=== PATIENT | female | born 1945 | race African-American/Black ===

== ENCOUNTER 2016-07-29 09:25 | Emergency (ER) | payer MEDICARE, OTHER ==
[~2016-07-29] VITALS: Ht 167.6 cm; Wt 99.8 kg
[~2016-07-29 09:25] MED LIST: AMLO5TAB4 PO; BP MEDICATIONS PO; CELE200C PO; CIPR500T6 PO; Cholesterol Med PO; DIABETIC MEDICATION PO; DIAZ5TAB PO; HYDR-2762 PO; HYDR-965 PO; INSU100C4 SQ; INSU100V8 SQ; LEVO150T PO; LEVO750T31 PO; Levothyroxine PO; METO5TAB55 PO; METR500T PO; ONDA4SOL2 PO; ONDA4TAB10 SL; PANT40TA3 PO; POTA20TA84 PO; SLEEPING MED PO; SPIR50TA PO; [UNRECOGNIZED DRUG - OTHER] PO
[2016-07-29 09:50] VITALS: BP 139/82
[2016-07-29 10:02] LABS: BILIRUBIN,URINE NEGATIVE (NEG); GLUCOSE,URINE NEGATIVE (NEG); NITRITE,URINE NEGATIVE (NEG); PROTEIN,URINE NEGATIVE (NEG-TRACE); UROBILINOGEN,URINE 0.2 mg/dL (0.2 mg/dL)
[2016-07-29 10:14] LABS: BACTERIA,URINE MODERATE /HPF (0-FEW); RBC,URINE 0 /HPF (0-2); SQUAMOUS EPITHELIAL CELL,UR MANY /LPF
[2016-07-29 10:15] LABS: YEAST,URINE PRESENT /HPF
[2016-07-29] MEDS ORDERED: CIPR500T94 PO (10:28)
--- NOTE | 2016-07-29 10:29 | PHYS DOC ---
Past Medical History Past Medical History: Diabetes-Type II, GERD, High Cholesterol, Hypertension, Hypothyroid, Other Additional Past Medical Histor: Hernia Past Surgical History: Cholecystectomy, Hysterectomy, Knee Replacement, Other Additional Past Surgical Histo: EGD,Cataract removed R)eye. Alcohol Use: None Drug Use: None Adult General Chief Complaint Chief Complaint: URINARY [facility] HPI Patient is a 71 year old E male presents to the emergency department with a three-day history of dysuria. Patient is currently in the care of a svp group director and primary care physician for acute renal failure. She has no other complaints at this time. She reports no fever, no abdominal pain. She reports no edema. Review of Systems Review of Systems Constitutional: Denies fever or chills [] Eyes: Denies change in visual acuity, redness, or eye pain [] HENT: Denies nasal congestion or sore throat [] Respiratory: Denies cough or shortness of breath [] Cardiovascular: No additional information not addressed in HPI [] GI: Denies abdominal pain, nausea, vomiting, bloody stools or diarrhea [] : Dysuria, frequency, urgency Musculoskeletal: Denies back pain or joint pain [] Integument: Denies rash or skin lesions [] Neurologic: Denies headache, focal weakness or sensory changes [] Endocrine: Denies polyuria or polydipsia [] Allergies Allergies Allergies Coded Allergies Type Severity Reaction Last Updated Verified Sulfa (Sulfonamide Antibiotics) Allergy Intermediate 07/28/13 Yes prochlorperazine Allergy Intermediate 07/28/13 Yes Physical Exam Physical Exam Constitutional: Well developed, well nourished, no acute distress, non-toxic appearance. [] HENT: Normocephalic, atraumatic, bilateral external ears normal, oropharynx moist, no oral exudates, nose normal. [] Eyes: PERRLA, EOMI, conjunctiva normal, no discharge. [] Neck: Normal range of motion, no tenderness, supple, no stridor. [] Cardiovascular:Heart rate regular rhythm, no murmur [] Lungs & Thorax: Bilateral breath sounds clear to auscultation [] Abdomen: Bowel sounds normal, soft, no tenderness, no masses, no pulsatile masses. [] Skin: Warm, dry, no erythema, no rash. [] Back: No tenderness, no CVA tenderness. [] Current Patient Data Vital Signs Vital Signs Date Time Temp Pulse Resp B/P (MAP) Pulse Ox O2 Delivery O2 Flow Rate FiO2 07/29/16 09:50 98.2 96 18 139/82 (101) 98 Room Air 98.2 Lab Values Laboratory Tests Test 07/29/16 09:40 Urine Collection Type Unknown Urine Color Yellow Urine Clarity Clear Urine pH 6.0 Urine Specific [place] 1.010 Urine Protein Negative mg/dL (NEG-TRACE) Urine Glucose (UA) Negative mg/dL (NEG) Urine Ketones (Stick) Negative mg/dL (NEG) Urine Blood Negative (NEG) Urine Nitrite Negative (NEG) Urine Bilirubin Negative (NEG) Urine Urobilinogen Dipstick 0.2 mg/dL (0.2 mg/dL) Urine Leukocyte Esterase Negative (NEG) Urine RBC 0 /HPF (0-2) Urine WBC 5-10 /HPF (0-4) Urine Squamous Epithelial Cells Many /LPF Urine Bacteria Moderate /HPF (0-FEW) Urine Hyaline Casts Few /HPF Urine Mucus Slight /LPF Urine Yeast Present /HPF EKG EKG [] Radiology/Procedures Radiology/Procedures [] Course & Med Decision Making Course & Med Decision Making Pertinent Labs and Imaging studies reviewed. (See chart for details) [] Dragon Disclaimer Dragon Disclaimer This electronic medical record was generated, in whole or in part, using a voice recognition dictation system. Departure Departure Impression: Primary Impression: UTI (urinary tract infection) Disposition: 01 HOME, SELF-CARE Condition: STABLE Referrals: TYSON QUEVEDO MD (PCP) Patient Instructions: Urinary Tract Infection Additional Instructions: Increase water intake. Follow-up with primary care provider or svp group director in 3 days. Scripts Ciprofloxacin Hcl (CIPRO) 500 Mg Tablet 500 MG PO BID for 7 Days, TAB 0 Refills Prov: CECE KEANE APRN 07/29/16 CECE KEANE CLINICAL CARE LEADER Jul 29, 2016 10:29
[2016-07-31] MEDS ORDERED: PANT40TA5 PO (18:00)
[2016-07-31] MEDS ORDERED: ZOLP10TA4 PO (18:00)
[2016-07-31] MEDS ORDERED: HYDR-2666 PO (18:00)
[2016-07-31] MEDS ORDERED: AMLO10TA2 PO (18:00)
[2016-07-31] MEDS ORDERED: HYDR12.53 PO (18:00)
[2016-07-31] MEDS ORDERED: GLIM4TAB2 PO (18:00)
[2016-07-31] MEDS ORDERED: CLON0.3T PO (18:00)
[2016-07-31] MEDS ORDERED: AMIT50TA PO (18:00)
[2016-07-31] MEDS ORDERED: DIAZ10TA5 PO (18:00)
[2016-07-31] MEDS ORDERED: CELE-20 PO (18:00)
[2016-07-31] MEDS ORDERED: SPIR50TA2 PO (18:00)
[2016-07-31] MEDS ORDERED: POTASSIUM PO (18:00)
[2016-07-31] MEDS ORDERED: INSU100I13 SQ (18:00)
[2016-07-31] MEDS ORDERED: LOSA100T6 PO (18:00)
== END 2016-07-29 10:36 | disposition home or self-care (01) ==
LOC: ER 09:25
DX: N39.0 Urinary tract infection, site not specified (principal); E11.9 Type 2 diabetes mellitus without complications; K21.9 Gastro-esophageal reflux disease without esophagitis; E78.00 Pure hypercholesterolemia, unspecified; I10 Essential (primary) hypertension; E03.9 Hypothyroidism, unspecified; Z90.49 Acquired absence of other specified parts of digestive tract; Z90.710 Acquired absence of both cervix and uterus; Z96.659 Presence of unspecified artificial knee joint; Z98.41 Cataract extraction status, right eye; Z88.2 Allergy status to sulfonamides; Z88.8 Allergy status to other drugs, medicaments and biological substances
CPT/HCPCS: 81001; 87086; 99284

== ENCOUNTER 2017-01-07 20:46 | Inpatient (IN) | payer MEDICARE ==
[~2017-01-07] VITALS: Ht 167.6 cm; Wt 97.1 kg
[~2017-01-07 20:46] MED LIST changes: +AMIT50TA PO; +AMLO10TA2 PO; +CELE-20 PO; +CIPR500T94 PO; +CLON0.3T PO; +DIAZ10TA5 PO; +ERYT250T14 PO; +GLIM4TAB2 PO; +HYDR-2758 PO; +HYDR12.53 PO; +HYDR15SO4 PO; +INSU100I13 SQ; +LOSA100T6 PO; +METO10TA81 PO; +PANT40TA5 PO; +POTASSIUM PO; +SPIR50TA2 PO; +SUCR1TAB35 PO; +ZOLP10TA4 PO
[2017-01-07 21:49] LABS: BASO % 0 % (0-3); EOS % 0 % (0-3); HEMATOCRIT 36.8 % (36.0-47.0); HEMOGLOBIN 12.2 g/dL (12.0-15.5); LYMPH # 1.8 x10^3/uL (1.0-4.8); LYMPH % 20 % (24-48); MEAN CORPUSCULAR HEMOGLOBIN 28 pg (25-35); MEAN CORPUSCULAR HGB CONC 33 g/dL (31-37); MEAN CORPUSCULAR VOLUME 86 fL (79-100); MONO % 6 % (0-9); NEUT % 74 % (31-73); PLATELET COUNT 226 x10^3/uL (140-400); RED CELL DISTRIBUTION WIDTH 19.6 % (11.5-14.5); WHITE BLOOD COUNT 9.4 x10^3/uL (4.0-11.0)
[2017-01-07 21:51] LABS: BILIRUBIN,URINE NEGATIVE (NEG); GLUCOSE,URINE >=1000 mg/dL (NEG); NITRITE,URINE NEGATIVE (NEG); PROTEIN,URINE 30 mg/dL (NEG-TRACE); UROBILINOGEN,URINE 0.2 mg/dL (0.2 mg/dL)
[2017-01-07 21:57] LABS: CALCIUM 10.6 mg/dL (8.5-10.1); CREATININE 1.3 mg/dL (0.6-1.0); GFR 49.1; POTASSIUM 4.4 mmol/L (3.5-5.1)
[2017-01-07] MEDS ORDERED: IV NORMAL SALINE 1000ML BAG 1,000 ML IV ONE (22:00)
[2017-01-07 22:03] LABS: ALBUMIN 3.9 g/dL (3.4-5.0); ALBUMIN/GLOBULIN RATIO 0.9 (1.0-1.7); TOTAL BILIRUBIN 0.5 mg/dL (0.2-1.0); TOTAL PROTEIN 8.3 g/dL (6.4-8.2)
[2017-01-07 22:10] LABS: BACTERIA,URINE MANY /HPF (0-FEW); RBC,URINE OCC /HPF (0-2); SQUAMOUS EPITHELIAL CELL,UR MANY /LPF; WBC,URINE OCC /HPF (0-4)
[2017-01-07] MEDS ORDERED: ONDANSETRON PF 4 MG/2 ML VIAL. IV ONE (22:15)
[2017-01-07] MEDS ORDERED: HYDROmorphone 2 MG/ML VIAL IV ONE ×2 (22:15→23:15)
--- NOTE | 2017-01-07 22:38 | RAD ---
CT ABDOMEN PELVIS WO CONTRAST dated 01/07/2017 9:40 PM Indication: Abdominal pain for 2 weeks. Recent hospitalization.abd pain, n/v x 2 weeks, recent hospitalization, diagnosed w gastroparesis, non contrast per order, prior sent. Comparison: 12/22/2016 Technique: Contiguous axial imaging the abdomen and pelvis performed without the administration of IV or oral contrast. One or more of the following individualized dose reduction techniques were utilized for this examination: 1. Automated exposure control 2. Adjustment of the mA and/or kV according to patient size 3. Use of iterative reconstruction technique Findings: Limited images of lung bases are clear. Heart size mildly enlarged. No pleural or pericardial effusion. Solid abdominal viscera not well evaluated in the absence of contrast material. No apparent attenuation abnormality of the liver or spleen. Pancreas is somewhat atrophic. Adrenal glands unremarkable. Gallbladder is not identified and likely surgically absent. Low-density lesions at the mid and lower pole right kidney are unchanged from prior study and likely represent cysts. No hydronephrosis. Unopacified GI tract is normal in caliber and contour. No focal bowel wall thickening. There are a few scattered diverticula within the colon. No paracolonic inflammatory changes. The appendix is normal in caliber. No ascites or lymphadenopathy. Images of pelvis show nondistended urinary bladder. No free pelvic fluid or pelvic lymphadenopathy. Bone windows show no acute findings. Multilevel spondylosis. IMPRESSION: 1. No acute abnormality of abdomen or pelvis. No renal stone or hydronephrosis. 2. Normal appendix. 3. Diverticulosis with no evidence of acute diverticulitis. Electronically signed by: Krishna Thomas MD (01/07/2017 10:34 PM) [id number]
[2017-01-07] MEDS ORDERED: HEPARIN PF 500 UNIT/5 ML DISP.SYRIN. IV ONE (22:55)
--- NOTE | 2017-01-07 22:58 | PHYS DOC ---
Past Medical History Past Medical History: Diabetes-Type II, GERD, High Cholesterol, Hypertension, Hypothyroid, Other Additional Past Medical Histor: Hernia Past Surgical History: Cholecystectomy, Hysterectomy, Knee Replacement, Other Additional Past Surgical Histo: EGD,Cataract removed BILAT EYES Alcohol Use: None Drug Use: None Adult General Chief Complaint Chief Complaint: ABDOMINAL PAIN HPI HPI Patient is a 71 year old female who presents to the ER today secondary to abdominal pain. Patient reports had a recent admission approximately 2-3 weeks ago for similar symptoms and was diagnosed with gastroparesis. Patient reports that she had a pretty sensitive workup on the hospital and did not reveal any other source of her abdominal discomfort other than with the doctors described to her as diabetic gastroparesis. Patient presents here today complaining of nausea, vomiting, diarrhea, diffuse abdominal discomfort. Patient reports she has been able keep any orals liquids or solids down for approximately 24 hours now. Patient denies any fevers shakes chills. Patient has a dysuria frequency urgency, patient denies any melena or bright red blood per rectum. Patient reports that she's been vomiting bilious material. Patient reports she has an appointment tomorrow with Dr. Merritt however she does not feel like she'll be able to leave the hospital today secondary to the discomfort that she is experiencing. Review of systems: Constitutional: Denies fever or chills Eyes: Denies change in visual acuity, redness, or eye pain HENT: Denies nasal congestion or sore throat All other systems were reviewed and found to be within normal limits, except as documented in this note. Physical exam: Constitutional: Well developed, well nourished, no acute distress, non-toxic appearance. HENT: Normocephalic, atraumatic, bilateral external ears normal Eyes: PERRLA, EOMI, conjunctiva normal, no discharge. Neck: Normal range of motion, no tenderness, supple, no stridor. Cardiovascular:Heart rate regular rhythm Lungs & Thorax: Bilateral breath sounds clear to auscultation Abdomen: Bowel sounds normal, soft, mild diffuse tenderness to palpation greatest in the right lower quadrant. Normal active bowel sounds., no masses, no pulsatile masses. Skin: Warm, dry, no erythema, no rash. Back: No tenderness, no CVA tenderness. Extremities: No tenderness, no cyanosis, no clubbing, ROM intact, no edema. Neurologic: Alert and oriented X 3, normal motor function, normal sensory function, no focal deficits noted. Psychologic: Affect normal, judgement normal, mood normal. Assessment and plan: This is a 71-year-old female who presents to the ER today complaining of abdominal painwith her prior gastroparesis pain. Patient's ER workup thus far has been unremarkable. Patient's CBC, CMP, lipase and urinalysis have been all unremarkable. Patient has CT scan of her abdomen and pelvis with IV contrast given her extensive workup during her prior admission approximately 2-3 weeks ago. Patient's exam was slightly concerning for possible appendicitis. Patient' s CT scan however was unremarkable for any acute inflammatory changes or any acute pathology that would help explain her abdominal pain. While in the ER the patient be given hydration, Dilaudid, Zofran and on reevaluation the patient reports she still feels a significant amount discomfort in her abdomen is still feels extremity nauseous and does not feel well enough to be able to be discharged. Patient was given a second dose of Dilaudid and Reglan and she still feels too much discomfort and is resting admission to the hospital secondary to her discomfort in her abdomen. Patient reports that she has an appointment tomorrow with Dr. Merritt but she does not feel that she would be able to be discharged home and seen in the office tomorrow. Patient is requesting admission and reevaluation by Dr. Merritt in the hospital. Current Medications Current Medications Current Medications Medications (Trade) Dose Ordered Sig/[facility] Start Time Stop Time Status Last Admin Dose Admin Hydromorphone HCl (Dilaudid) 0.5 mg 1X ONCE 01/07/17 22:15 01/07/17 22:16 DC 01/07/17 22:06 0.5 MG Ondansetron HCl (Zofran) 4 mg 1X ONCE 01/07/17 22:15 01/07/17 22:16 DC 01/07/17 22:06 4 MG Sodium Chloride 1,000 ml @ 1,000 mls/hr 1X ONCE 01/07/17 22:00 01/07/17 22:59 01/07/17 22:23 1,000 MLS/HR Allergies Allergies Allergies Coded Allergies Type Severity Reaction Last Updated Verified Sulfa (Sulfonamide Antibiotics) Allergy Intermediate 12/22/16 Yes prochlorperazine Allergy Intermediate 10/29/17 Yes Current Patient Data Vital Signs Vital Signs Date Time Temp Pulse Resp B/P (MAP) Pulse Ox O2 Delivery O2 Flow Rate FiO2 01/07/17 22:06 16 98 Room Air 01/07/17 21:32 102 164/93 (116) 01/07/17 21:00 98.8 98.8 Lab Values Laboratory Tests Test 01/07/17 21:05 01/07/17 21:13 01/07/17 21:41 White Blood Count 9.4 x10^3/uL (4.0-11.0) Red Blood Count 4.30 x10^6/uL (3.50-5.40) Hemoglobin 12.2 g/dL (12.0-15.5) Hematocrit 36.8 % (36.0-47.0) Mean Corpuscular Volume 86 fL (79-100) Mean Corpuscular Hemoglobin 28 pg (25-35) Mean Corpuscular Hemoglobin Concent 33 g/dL (31-37) Red Cell Distribution Width 19.6 % (11.5-14.5) H Platelet Count 226 x10^3/uL (140-400) Neutrophils (%) (Auto) 74 % (31-73) H Lymphocytes (%) (Auto) 20 % (24-48) L Monocytes (%) (Auto) 6 % (0-9) Eosinophils (%) (Auto) 0 % (0-3) Basophils (%) (Auto) 0 % (0-3) Neutrophils # (Auto) 6.9 x10^3uL (1.8-7.7) Lymphocytes # (Auto) 1.8 x10^3/uL (1.0-4.8) Monocytes # (Auto) 0.6 x10^3/uL (0.0-1.1) Eosinophils # (Auto) 0.0 x10^3/uL (0.0-0.7) Basophils # (Auto) 0.0 x10^3/uL (0.0-0.2) Sodium Level 135 mmol/L (136-145) L Potassium Level 4.4 mmol/L (3.5-5.1) Chloride Level 99 mmol/L (98-107) Carbon Dioxide Level 21 mmol/L (21-32) Anion Gap 15 (6-14) H Blood Urea Nitrogen 10 mg/dL (7-20) Creatinine 1.3 mg/dL (0.6-1.0) H Estimated GFR (Cockcroft-Gault) 49.1 BUN/Creatinine Ratio 8 (6-20) Glucose Level 284 mg/dL (70-99) H Calcium Level 10.6 mg/dL (8.5-10.1) H Total Bilirubin 0.5 mg/dL (0.2-1.0) Aspartate Amino Transferase (AST) 33 U/L (15-37) Alanine Aminotransferase (ALT) 19 U/L (14-59) Alkaline Phosphatase 54 U/L (46-116) Total Protein 8.3 g/dL (6.4-8.2) H Albumin 3.9 g/dL (3.4-5.0) Albumin/Globulin Ratio 0.9 (1.0-1.7) L Lipase 377 U/L (73-393) Glucose (Fingerstick) 261 mg/dL (70-99) H Urine Collection Type Unknown Urine Color Yellow Urine Clarity Clear Urine pH 6.0 Urine Specific [place] 1.025 Urine Protein 30 mg/dL (NEG-TRACE) Urine Glucose (UA) >=1000 mg/dL (NEG) Urine Ketones (Stick) 15 mg/dL (NEG) Urine Blood Negative (NEG) Urine Nitrite Negative (NEG) Urine Bilirubin Negative (NEG) Urine Urobilinogen Dipstick 0.2 mg/dL (0.2 mg/dL) Urine Leukocyte Esterase Negative (NEG) Urine RBC Occ /HPF (0-2) Urine WBC Occ /HPF (0-4) Urine Squamous Epithelial Cells Many /LPF Urine Bacteria Many /HPF (0-FEW) Urine Mucus Mod /LPF Laboratory Tests 01/07/17 21:05 Laboratory Tests 01/07/17 21:05 EKG EKG [] Radiology/Procedures Radiology/Procedures [] Course & Med Decision Making Course & Med Decision Making Pertinent Labs and Imaging studies reviewed. (See chart for details) [] Dragon Disclaimer Dragon Disclaimer This electronic medical record was generated, in whole or in part, using a voice recognition dictation system. Departure Departure Impression: Primary Impression: Abdominal pain Additional Impressions: Diabetic gastroparesis Nausea & vomiting Diarrhea GERD (gastroesophageal reflux disease) Disposition: 09 ADMITTED INPATIENT Admitting Physician: Other (reusch) Condition: STABLE Referrals: TYSON QUEVEDO MD (PCP) Problem Qualifiers LAURITA,PIEDAD S MD Jan 07, 2017 22:58
[2017-01-07] MEDS ORDERED: ONDANSETRON PF 4 MG/2 ML VIAL. IV PRN (23:00)
[2017-01-07] MEDS: METOCLOPRAMIDE HCL 10 MG/2 ML VIAL. IV SCH (23:45)
[2017-01-07] MEDS: IV NORMAL SALINE 1000ML BAG 1,000 ML IV SCH (23:50)
[2017-01-08] VITALS (7 sets, daily range): BP systolic 110–148; BP diastolic 69–88
[2017-01-08] MEDS: IV NORMAL SALINE 1000ML BAG 1,000 ML IV SCH ×2 (00:28→07:51)
--- NOTE | 2017-01-08 06:46 | EKG ---
[facility] [address] [place] [address] Test Date: 2017-01-07 Test Time: 21:51:25 Pat Name: VERONICA CRYSTAL Department: Room: [facility] Gender: F Signal Integrity Engineer: : [id number] Requested By: PIEDAD SHAY Order Number: [id number] Reading MD: David Herrera MD Measurements Intervals [place] Rate: 88 P: -15 [place]: 140 QRS: -11 QRSD: 80 T: -16 QT: 376 QTc: 459 Interpretive Statements SINUS RHYTHM LEFTWARD AXIS T ABNORMALITY IN ANTERIOR LEADS INFEROLATERAL LEADS ABNORMAL EKG Electronically Signed On 01-08-2017 8:33:49 [employer] PROFESSION[employer] by David Herrera MD
[2017-01-08] MEDS ORDERED: HYDROmorphone 2 MG/ML VIAL IVP ONE (07:15)
[2017-01-08] MEDS: METOCLOPRAMIDE HCL 10 MG/2 ML VIAL. IV SCH (07:47)
--- NOTE | 2017-01-08 10:09 | PDOC ---
Subjective: Subjective: Please see GI consult from 12/23/16. H/o gastroparesis, recently seen w/ n/v, abd pain, and tremors on Reglan. Reglan stopped, GES repeated (abnormal), and started on erythromycin (PO QID). Improved, discharged in 12/27. Readmitted w/ n/v, inability to tolerate PO, and lower abd discomfort since 12/28. Has no recollection of taking erythromycin, doesn't think she was sent home w/ this. Vomiting about 3 times daily. Has GERD, is taking PPI + Carafate (both QD). Say stooling normally. Last EGD w/ Dr. Novoa ~2 years ago, not sure about last colonoscopy. S/p cholecystectomy. Has DM, says blood sugar running in 220s at home. Is receiving IV Reglan here. Objective: Vital Signs: Vital Signs Date Time Temp Pulse Resp B/P (MAP) Pulse Ox O2 Delivery O2 Flow Rate FiO2 01/08/17 08:45 Room Air 01/08/17 07:00 98.2 89 20 130/76 (94) 96 98.2 Labs: Laboratory Tests Test 01/07/17 21:05 01/07/17 21:13 01/07/17 21:41 01/08/17 08:41 White Blood Count 9.4 x10^3/uL Red Blood Count 4.30 x10^6/uL Hemoglobin 12.2 g/dL Hematocrit 36.8 % Mean Corpuscular Volume 86 fL Mean Corpuscular Hemoglobin 28 pg Mean Corpuscular Hemoglobin Concent 33 g/dL Red Cell Distribution Width 19.6 % Platelet Count 226 x10^3/uL Neutrophils (%) (Auto) 74 % Lymphocytes (%) (Auto) 20 % Monocytes (%) (Auto) 6 % Eosinophils (%) (Auto) 0 % Basophils (%) (Auto) 0 % Neutrophils # (Auto) 6.9 x10^3uL Lymphocytes # (Auto) 1.8 x10^3/uL Monocytes # (Auto) 0.6 x10^3/uL Eosinophils # (Auto) 0.0 x10^3/uL Basophils # (Auto) 0.0 x10^3/uL Sodium Level 135 mmol/L Potassium Level 4.4 mmol/L Chloride Level 99 mmol/L Carbon Dioxide Level 21 mmol/L Anion Gap 15 Blood Urea Nitrogen 10 mg/dL Creatinine 1.3 mg/dL Estimated GFR (Cockcroft-Gault) 49.1 BUN/Creatinine Ratio 8 Glucose Level 284 mg/dL Calcium Level 10.6 mg/dL Total Bilirubin 0.5 mg/dL Aspartate Amino Transf (AST/SGOT) 33 U/L Alanine Aminotransferase (ALT/SGPT) 19 U/L Alkaline Phosphatase 54 U/L Total Protein 8.3 g/dL Albumin 3.9 g/dL Albumin/Globulin Ratio 0.9 Lipase 377 U/L Glucose (Fingerstick) 261 mg/dL 203 mg/dL Urine Collection Type Unknown Urine Color Yellow Urine Clarity Clear Urine pH 6.0 Urine Specific [place] 1.025 Urine Protein 30 mg/dL Urine Glucose (UA) >=1000 mg/dL Urine Ketones (Stick) 15 mg/dL Urine Blood Negative Urine Nitrite Negative Urine Bilirubin Negative Urine Urobilinogen Dipstick 0.2 mg/dL Urine Leukocyte Esterase Negative Urine RBC Occ /HPF Urine WBC Occ /HPF Urine Squamous Epithelial Cells Many /LPF Urine Bacteria Many /HPF Urine Mucus Mod /LPF Imaging: CT A/P IMPRESSION: 1. No acute abnormality of abdomen or pelvis. No renal stone or hydronephrosis. 2. Normal appendix. 3. Diverticulosis with no evidence of acute diverticulitis. PE: GEN: NAD HEENT: Atraumatic, PERRL LUNGS: CTAB HEART: RRR ABD: NABS, S/ND, not particularly tender - perhaps mild discomfort BLQ EXTREMITY: No edema SKIN: No rashes, no jaundice NEURO/PSYCH: A & O 3 A/P: Gastroparesis N/v, abd pain GERD -- Last admission Reglan stopped for tremors, started on erythromycin which was apparently not continued on discharge. Restart IV erythromycin. Has never had imaging of head (here) - check head CT. HARLEY GOEL Jan 08, 2017 10:09
[2017-01-08] MEDS: ERYTHROMYCIN LACT 125 MG in IV NORMAL SALINE 100ML 100 ML IV SCH ×2 (11:18→17:18)
[2017-01-08] MEDS ORDERED: ACETAMINOPHEN 325 MG TABLET. PO PRN (11:30)
[2017-01-08] MEDS ORDERED: hydrALAZINE 20 MG/ML VIAL. IVP PRN (11:30)
[2017-01-08] MEDS ORDERED: DOCUSATE SODIUM 100 MG CAPSULE. PO PRN (11:30)
[2017-01-08] MEDS ORDERED: ONDANSETRON PF 4 MG/2 ML VIAL. IV PRN (11:30)
[2017-01-08] MEDS ORDERED: DEXTROSE 50% 25 GM / 50ML DISP.SYRIN. IV PRN (11:30)
[2017-01-08] MEDS ORDERED: ZOLPIDEM 5 MG TABLET. PO PRN (11:45)
[2017-01-08] MEDS ORDERED: diazePAM 5 MG TABLET PO PRN (11:45)
[2017-01-08] MEDS: AMITRIPTYLINE HCL 50 MG TABLET PO SCH (11:57)
[2017-01-08] MEDS: POTASSIUM CHLORIDE 20 MEQ TABLET.ER. PO SCH (11:57)
[2017-01-08] MEDS: amLODIPine BESYLATE 10 MG TABLET PO SCH ×2 (11:57→20:39)
[2017-01-08] MEDS: PANTOPRAZOLE 40 MG TABLET.DR. PO SCH ×2 (11:57→17:17)
[2017-01-08] MEDS: GLIMEPIRIDE 2 MG TABLET. PO SCH (11:57)
[2017-01-08] MEDS: SPIRONOLACTONE 25 MG TABLET PO SCH (11:57)
[2017-01-08] MEDS: SUCRALFATE 1 GM TABLET. PO SCH ×3 (11:57→20:39)
[2017-01-08] MEDS: ENOXAPARIN 40 MG/0.4 ML SYRINGE. SQ SCH (11:58)
[2017-01-08] MEDS: INSULIN ASPART 300 UNITS/3 ML INSULN.PEN SQ SCH ×2 (12:04→17:24)
[2017-01-08] MEDS: traMADol 50 MG TABLET PO PRN (12:08)
--- NOTE | 2017-01-08 12:49 | RAD ---
CT head without contrast 01/08/2017 Clinical indication: Recurrent nausea and vomiting. Comparison: None. Technique: Multiple CT images of the head were obtained without contrast according to standard protocol. RS Compliance Statement: One or more of the following individualized dose reduction techniques were utilized for this examination: 1. Automated exposure control 2. Adjustment of the mA and/or kV according to patient size 3. Use of iterative reconstruction technique Head findings: There is a tiny high density structure in the periventricular white matter of the right parietal lobe measuring 0.6 cm series 2/image 19. No acute intracranial hemorrhage or extra-axial fluid collection. No midline shift or mass effect. The ventricles and subarachnoid spaces are normal in size and configuration for age. Alarcon-white matter interfaces are maintained. The basal cisterns are patent. There is hyperostosis frontalis internus which is an incidental finding. Impression: 1. Tiny, 0.6 cm, right parietal periventricular high density structure. Finding is indeterminate between benign and malignant etiologies. Considerations include periventricular heterotopic alarcon matter, though metastatic disease from an unknown primary or primary brain malignancy cannot be definitively excluded. Artifact is additional consideration. MRI brain without and with contrast is recommended for further characterization. 2. No acute intracranial hemorrhage.
[2017-01-08] MEDS: MORPHINE SULFATE 4 MG/ML DISP.SYRIN. IV PRN ×2 (13:35→20:40)
--- NOTE | 2017-01-08 13:50 | PDOC1 ---
History and Physical Date of Admission Date of Admission 01/08/17 Identification/Chief Complaint Chief Complaint abd pain, N/V Problems: Source Source: Chart review, Patient History of Present Illness History of Present Illness HPI HPI Patient is a 71 year old female with gastroparesis came to ER last night for abd pain and N/V for a few days. Pt was just DCEd here 12ds ago for same reason, was found gastroparesis. Supposed to to ty but pt told me she took reglan, and as per GI , reglan supposed to be dced since she has tremors. Pt said 5ds after dc, she started to have midle abd pain again, intermittent, took reglan , not helpful. N/V for 2 days, with some diarrhea too. she lives alone, daughter helps sometime. has some psych issues likely, on high dose valium tid. ABD CT not significant except diverticulosis. Past Medical History Cardiovascular: HTN Pulmonary: Pulmonary embolus, Other Psych: Anxiety Endocrine: Diabetes, Hypothyroidism Past Surgical History Past Surgical History: Cholecystectomy, Total knee replacement, Hysterectomy, Other Family History Family History: Coronary Artery Disease, Diabetes, Hypertension Social History Smoke: No ALCOHOL: none Drugs: None Current Problem List Problem List Problems Medical Problems: (1) Abdominal pain Status: Acute (2) Diabetic gastroparesis Status: Acute (3) Diarrhea Status: Acute (4) Nausea & vomiting Status: Acute Current Medications Current Medications Current Medications Medications (Trade) Dose Ordered Sig/Alo Start Time Stop Time Status Last Admin Dose Admin Acetaminophen (Tylenol) 650 mg PRN Q6HRS PRN 01/08/17 11:30 Acetaminophen/ Hydrocodone Bitart (Lortab 7.5-325/ 15ml Oral Solution) 10 ml PRN Q6HRS PRN 01/08/17 11:30 Amitriptyline HCl (Amitriptyline HCl) 50 mg DAILY 01/08/17 12:00 01/08/17 11:57 50 MG Amlodipine Besylate (Norvasc) 10 mg BID 01/08/17 12:00 01/08/17 11:57 10 MG Dextrose (Dextrose 50%-Water Syringe) 12.5 gm PRN Q15MIN PRN 01/08/17 11:30 Diazepam (Valium) 10 mg PRN Q8HRS PRN 01/08/17 11:45 Docusate Sodium (Colace) 100 mg PRN DAILY PRN 01/08/17 11:30 Enoxaparin Sodium (Lovenox 40mg Syringe) 40 mg Q24H 01/08/17 12:00 01/08/17 11:58 40 MG Erythromycin Lactobionate 125 mg/Sodium Chloride 100 ml @ 100 mls/hr Q6HRS 01/08/17 11:00 01/08/17 11:18 100 MLS/HR Glimepiride (Amaryl) 4 mg DAILY 01/08/17 12:00 01/08/17 11:57 4 MG Heparin Sodium (Porcine) (Hep Lock Adult) 500 unit STK-MED ONCE 01/07/17 22:55 01/07/17 22:56 DC Hydralazine HCl (Apresoline Inj) 10 mg PRN Q4HRS PRN 01/08/17 11:30 Hydromorphone HCl (Dilaudid) 0.2 mg 1X ONCE 01/08/17 07:15 01/08/17 07:18 DC 01/08/17 07:47 0.2 MG Insulin Aspart (NovoLOG) 0-9 UNITS TIDWMEALS 01/08/17 12:00 01/08/17 12:04 5 UNITS Metoclopramide HCl (Reglan Vial) 10 mg QIDACHS 01/07/17 23:30 01/08/17 10:08 DC 01/08/17 07:47 10 MG Morphine Sulfate 2 mg PRN Q2HR PRN 01/08/17 11:30 01/08/17 13:35 2 MG Ondansetron HCl (Zofran) 4 mg PRN Q6HRS PRN 01/08/17 11:30 Pantoprazole Sodium (Protonix) 40 mg BIDAC 01/08/17 11:30 01/08/17 11:57 40 MG Potassium Chloride (Klor-Con) 20 meq DAILYWBKFT 01/08/17 12:00 01/08/17 11:57 20 MEQ Sodium Chloride 1,000 ml @ 125 mls/hr Q8H 01/07/17 23:00 01/08/17 22:59 01/08/17 07:51 125 MLS/HR Spironolactone (Aldactone) 50 mg DAILY 01/08/17 12:00 01/08/17 11:57 50 MG Sucralfate (Carafate) 1 gm QIDACHS 01/08/17 11:30 01/08/17 11:57 1 GM Tramadol HCl (Ultram) 50 mg PRN Q6HRS PRN 01/08/17 11:30 01/08/17 12:08 50 MG Zolpidem Tartrate (Ambien) 5 mg PRN QHS PRN 01/08/17 11:45 Allergies Allergies Allergies Coded Allergies Type Severity Reaction Last Updated Verified Sulfa (Sulfonamide Antibiotics) Allergy Intermediate 12/22/16 Yes prochlorperazine Allergy Intermediate 12/22/16 Yes ROS Review of System CONSTITUTIONAL: No fever or chills EYES: No recent changes SKIN: No rash or itching CARDIOVASCULAR: No chest pain, syncope, palpitations, or edema RESPIRATORY: No SOB or cough GASTROINTESTINAL: No nausea, vomiting or abdominal pain NEUROLOGICAL: No headaches or weakness ENDOCRINE: No cold or heat intolerance GENITOURINARY: No urgency or frequency of urination MUSCULOSKELETAL: No back pain or joint pain LYMPHATICS: No enlarged lymph nodes PSYCHIATRIC: No anxiety or depression Physical Exam Physical Exam GEN.: No apparent distress. Alert and oriented. HEENT: Head is normocephalic, atraumatic NECK: Supple. LUNGS: Clear to auscultation. HEART: RRR, S1, S2 present. Peripheral pulses intact ABDOMEN: Soft, Positive bowel sounds. middle abd mild tenderness. EXTREMITIES: Without any cyanosis. NEUROLOGIC: Normal speech, normal tone PSYCHIATRIC: Normal affect, normal mood. SKIN: No ulcerations Vitals Vitals Vital Signs Date Time Temp Pulse Resp B/P (MAP) Pulse Ox O2 Delivery O2 Flow Rate FiO2 01/08/17 13:35 Room Air 01/08/17 11:57 72 124/70 01/08/17 11:00 98.0 22 96 98.0 Labs Labs Laboratory Tests Test 01/07/17 21:05 01/07/17 21:13 01/07/17 21:41 01/08/17 08:41 White Blood Count 9.4 x10^3/uL (4.0-11.0) Red Blood Count 4.30 x10^6/uL (3.50-5.40) Hemoglobin 12.2 g/dL (12.0-15.5) Hematocrit 36.8 % (36.0-47.0) Mean Corpuscular Volume 86 fL (79-100) Mean Corpuscular Hemoglobin 28 pg (25-35) Mean Corpuscular Hemoglobin Concent 33 g/dL (31-37) Red Cell Distribution Width 19.6 % (11.5-14.5) Platelet Count 226 x10^3/uL (140-400) Neutrophils (%) (Auto) 74 % (31-73) Lymphocytes (%) (Auto) 20 % (24-48) Monocytes (%) (Auto) 6 % (0-9) Eosinophils (%) (Auto) 0 % (0-3) Basophils (%) (Auto) 0 % (0-3) Neutrophils # (Auto) 6.9 x10^3uL (1.8-7.7) Lymphocytes # (Auto) 1.8 x10^3/uL (1.0-4.8) Monocytes # (Auto) 0.6 x10^3/uL (0.0-1.1) Eosinophils # (Auto) 0.0 x10^3/uL (0.0-0.7) Basophils # (Auto) 0.0 x10^3/uL (0.0-0.2) Sodium Level 135 mmol/L (136-145) Potassium Level 4.4 mmol/L (3.5-5.1) Chloride Level 99 mmol/L (98-107) Carbon Dioxide Level 21 mmol/L (21-32) Anion Gap 15 (6-14) Blood Urea Nitrogen 10 mg/dL (7-20) Creatinine 1.3 mg/dL (0.6-1.0) Estimated GFR (Cockcroft-Gault) 49.1 BUN/Creatinine Ratio 8 (6-20) Glucose Level 284 mg/dL (70-99) Calcium Level 10.6 mg/dL (8.5-10.1) Total Bilirubin 0.5 mg/dL (0.2-1.0) Aspartate Amino Transf (AST/SGOT) 33 U/L (15-37) Alanine Aminotransferase (ALT/SGPT) 19 U/L (14-59) Alkaline Phosphatase 54 U/L (46-116) Total Protein 8.3 g/dL (6.4-8.2) Albumin 3.9 g/dL (3.4-5.0) Albumin/Globulin Ratio 0.9 (1.0-1.7) Lipase 377 U/L (73-393) Glucose (Fingerstick) 261 mg/dL (70-99) 203 mg/dL (70-99) Urine Collection Type Unknown Urine Color Yellow Urine Clarity Clear Urine pH 6.0 Urine Specific [place] 1.025 Urine Protein 30 mg/dL (NEG-TRACE) Urine Glucose (UA) >=1000 mg/dL (NEG) Urine Ketones (Stick) 15 mg/dL (NEG) Urine Blood Negative (NEG) Urine Nitrite Negative (NEG) Urine Bilirubin Negative (NEG) Urine Urobilinogen Dipstick 0.2 mg/dL (0.2 mg/dL) Urine Leukocyte Esterase Negative (NEG) Urine RBC Occ /HPF (0-2) Urine WBC Occ /HPF (0-4) Urine Squamous Epithelial Cells Many /LPF Urine Bacteria Many /HPF (0-FEW) Urine Mucus Mod /LPF Test 01/08/17 11:03 Glucose (Fingerstick) 226 mg/dL (70-99) Laboratory Tests Test 01/07/17 21:05 01/07/17 21:13 01/07/17 21:41 01/08/17 08:41 White Blood Count 9.4 x10^3/uL (4.0-11.0) Red Blood Count 4.30 x10^6/uL (3.50-5.40) Hemoglobin 12.2 g/dL (12.0-15.5) Hematocrit 36.8 % (36.0-47.0) Mean Corpuscular Volume 86 fL (79-100) Mean Corpuscular Hemoglobin 28 pg (25-35) Mean Corpuscular Hemoglobin Concent 33 g/dL (31-37) Red Cell Distribution Width 19.6 % (11.5-14.5) Platelet Count 226 x10^3/uL (140-400) Neutrophils (%) (Auto) 74 % (31-73) Lymphocytes (%) (Auto) 20 % (24-48) Monocytes (%) (Auto) 6 % (0-9) Eosinophils (%) (Auto) 0 % (0-3) Basophils (%) (Auto) 0 % (0-3) Neutrophils # (Auto) 6.9 x10^3uL (1.8-7.7) Lymphocytes # (Auto) 1.8 x10^3/uL (1.0-4.8) Monocytes # (Auto) 0.6 x10^3/uL (0.0-1.1) Eosinophils # (Auto) 0.0 x10^3/uL (0.0-0.7) Basophils # (Auto) 0.0 x10^3/uL (0.0-0.2) Sodium Level 135 mmol/L (136-145) Potassium Level 4.4 mmol/L (3.5-5.1) Chloride Level 99 mmol/L (98-107) Carbon Dioxide Level 21 mmol/L (21-32) Anion Gap 15 (6-14) Blood Urea Nitrogen 10 mg/dL (7-20) Creatinine 1.3 mg/dL (0.6-1.0) Estimated GFR (Cockcroft-Gault) 49.1 BUN/Creatinine Ratio 8 (6-20) Glucose Level 284 mg/dL (70-99) Calcium Level 10.6 mg/dL (8.5-10.1) Total Bilirubin 0.5 mg/dL (0.2-1.0) Aspartate Amino Transf (AST/SGOT) 33 U/L (15-37) Alanine Aminotransferase (ALT/SGPT) 19 U/L (14-59) Alkaline Phosphatase 54 U/L (46-116) Total Protein 8.3 g/dL (6.4-8.2) Albumin 3.9 g/dL (3.4-5.0) Albumin/Globulin Ratio 0.9 (1.0-1.7) Lipase 377 U/L (73-393) Glucose (Fingerstick) 261 mg/dL (70-99) 203 mg/dL (70-99) Urine Collection Type Unknown Urine Color Yellow Urine Clarity Clear Urine pH 6.0 Urine Specific [place] 1.025 Urine Protein 30 mg/dL (NEG-TRACE) Urine Glucose (UA) >=1000 mg/dL (NEG) Urine Ketones (Stick) 15 mg/dL (NEG) Urine Blood Negative (NEG) Urine Nitrite Negative (NEG) Urine Bilirubin Negative (NEG) Urine Urobilinogen Dipstick 0.2 mg/dL (0.2 mg/dL) Urine Leukocyte Esterase Negative (NEG) Urine RBC Occ /HPF (0-2) Urine WBC Occ /HPF (0-4) Urine Squamous Epithelial Cells Many /LPF Urine Bacteria Many /HPF (0-FEW) Urine Mucus Mod /LPF Test 01/08/17 11:03 Glucose (Fingerstick) 226 mg/dL (70-99) VTE Prophylaxis Ordered VTE Prophylaxis Devices: Yes VTE Pharmacological Prophylaxi: Yes Assessment/Plan Assessment/Plan abd pain 2/2 gastroparesis likely DM2, RECent hba1c 7.1 morbid obesity 34.5 BMI depression OA htn hypothyroidism 0.6cm high density on Head CT rt parietal lob multiple abd sx history plan: gi consult cont ppi dc reglan, ty qid iv clear liquid for now cont po DM2 meds, SSI dvt ppx PTOT ROSANA MELENDEZ MD Jan 08, 2017 13:50
[2017-01-08] MEDS ORDERED: GADOBUTROL 10 MMOL/10 ML VIAL IV ONE (16:30)
[2017-01-08] MEDS: HYDROcodon/APAP 7.5/325MG ORAL 15 ML SOLUTION PO PRN (17:18)
--- NOTE | 2017-01-08 19:06 | PDOC2 ---
NEUROLOGY CONSULT Date of Admission Date of Admission DATE: 01/08/17 TIME: 18:58 Reason for Consult Reason for Consult: IMPRESSION: Abnormal HCT finding, 0.6 cm lesion in right parietal lobe. Abdominal pain. DM HTN HLD Hypothyroidism Obesity. RECOMMENDATIONS/PLAN: Brain MRI w/wo contrast. Lab: see orders. Treat medical diseases. OT/PT. HISTORY OF THE PRESENT ILLNESS: 71-y-old AA female patient with above medical diseases developed abdominal pain to come to the ER. Her HCT showed a 0.6 cm lesion in the right parietal lobe, so Neurology was requested for consultation. Patient denied Hx of brain tumor, CVA, or MS. Past Medical History Cardiovascular: HTN Pulmonary: Pulmonary embolus, Other Psych: Anxiety Endocrine: Diabetes, Hypothyroidism Past Surgical History Cholecystectomy, Total knee replacement, Hysterectomy, Other Family History Coronary Artery Disease, Diabetes, Hypertension Social History Smoke: No ALCOHOL: none Drugs: None ALLERGY: Reviewed. MEDICATIONS: Refer to MAR REVIEW OF SYSTEMS: Constitutional: No malnutrition, weight loss, cachexia. Head: No traumatic brain or head injury. Skin: No edema, or rash. Ear: No infection, tinnitus. Eyes: No vision loss or color blindness. Nose: No bleeding or purulent discharges. Hearing: No hearing decrease. Neck: No injury. Breast: No history of cancer, masses,or discharges. Cardiac: HTN, HLD. Pulmonary: No pneumonia. GI: No GI ulcer, GI bleeding. Urinary/genital: UTI. Endocrinologic: Diabetes Mellitus. Skeletomuscular: No muscular atrophy, deformity. Neurological: see HP. Psychiatric: Denies drug use/abuse. Otherwise, not -vkaip review of systems. PHYSICAL EXAMINATION: General appearance is in subacute distress. HEENT: Normocephalic and nontraumatic. Eyes, nose, ears, and throat are unremarkable. Neck is supple. No lymphadenopathy. No crepitus. Cardiovascular: S1, S2, regular rate and rhythm. Pulmonary: Clear to auscultation bilaterally. Abdomen: Bowel sounds are positive. Extremities: No rash, lesions, or edema. No restriction of range of motion NEUROLOGICAL EXAMINATION: Awake. Oriented to time, place and person. PERRL. EOMI. CN: no focal findings. Muscle tone: within normal. Muscle strength: 4+ DTR: 1+ due to obesity. Plantar reflex: Flexor response bilaterally Gait: not examined in bed. Sensory exam: no abnormal findings. No cerebellar signs elicited. F-T-N test accurate. Current Medications Current Medications Current Medications Sodium Chloride 1,000 ml @ 1,000 mls/hr 1X ONCE IV Last administered on 01/07 22:23; Start 01/07/17 at 22:00; Stop 01/07/17 at 22:59; Status DC Ondansetron HCl (Zofran) 4 mg 1X ONCE IV Last administered on 01/07/17 22:06 ; Start 01/07/17 at 22:15; Stop 01/07/17 at 22:16; Status DC Hydromorphone HCl (Dilaudid) 0.5 mg 1X ONCE IV Last administered on 22:06; Start 01/07/17 at 22:15; Stop 01/07/17 at 22:16; Status DC Ondansetron HCl (Zofran) 4 mg PRN Q8HRS PRN IV NAUSEA/VOMITING Last administered on 01/08/17 02:20; Start 01/07/17 at 23:00; Stop 01/08/17 at 22 :59 Sodium Chloride 1,000 ml @ 125 mls/hr Q8H IV Last administered on 01/08/17 07:51; Start 01/07/17 at 23:00; Stop 01/08/17 at 22:59 Metoclopramide HCl (Reglan Vial) 10 mg QIDACHS IV Last administered on 07:47; Start 01/07/17 at 23:30; Stop 01/08/17 at 10:08; Status DC Hydromorphone HCl (Dilaudid) 0.5 mg 1X ONCE IV Last administered on 01:09; Start 01/07/17 at 23:15; Stop 01/07/17 at 23:16; Status DC Heparin Sodium (Porcine) (Hep Lock Adult) 500 unit STK-MED ONCE IV ; Start at 22:55; Stop 01/07/17 at 22:56; Status DC Hydromorphone HCl (Dilaudid) 0.2 mg 1X ONCE IVP Last administered on 07:47; Start 01/08/17 at 07:15; Stop 01/08/17 at 07:18; Status DC Erythromycin Lactobionate 125 mg/Sodium Chloride 100 ml @ 100 mls/hr Q6HRS IV Last administered on 01/08/17 17:18; Start 01/08/17 at 11:00 Amitriptyline HCl (Amitriptyline HCl) 50 mg DAILY PO Last administered on 01/08 11:57; Start 01/08/17 at 12:00 Amlodipine Besylate (Norvasc) 10 mg BID PO Last administered on 01/08/17 11: 57; Start 01/08/17 at 12:00 Diazepam (Valium) 10 mg PRN Q8HRS PRN PO ANXIETY / AGITATION; Start 01/08/17 at 11:45 Acetaminophen/ Hydrocodone Bitart (Lortab 7.5-325/ 15ml Oral Solution) 10 ml PRN Q6HRS PRN PO PAIN Last administered on 01/08/17 17:18; Start 01/08/17 at 11:30 Pantoprazole Sodium (Protonix) 40 mg BIDAC PO Last administered on 01/08/17 17:17; Start 01/08/17 at 11:30 Sucralfate (Carafate) 1 gm QIDACHS PO Last administered on 01/08/17 17:17; Start 01/08/17 at 11:30 Glimepiride (Amaryl) 4 mg DAILY PO Last administered on 01/08/17 11:57; Start 01/08/17 at 12:00 Spironolactone (Aldactone) 50 mg DAILY PO Last administered on 01/08/17 11:57 ; Start 01/08/17 at 12:00 Zolpidem Tartrate (Ambien) 5 mg PRN QHS PRN PO INSOMNIA; Start 01/08/17 at 11: 45 Potassium Chloride (Klor-Con) 20 meq DAILYWBKFT PO Last administered on 11:57; Start 01/08/17 at 12:00 Acetaminophen (Tylenol) 650 mg PRN Q6HRS PRN PO FEVER; Start 01/08/17 at 11:30 Ondansetron HCl (Zofran) 4 mg PRN Q6HRS PRN IV NAUSEA/VOMITING; Start at 11:30 Morphine Sulfate 2 mg PRN Q2HR PRN IV PAIN Last administered on 01/08/17 13: 35; Start 01/08/17 at 11:30 Tramadol HCl (Ultram) 50 mg PRN Q6HRS PRN PO PAIN Last administered on 12:08; Start 01/08/17 at 11:30 Hydralazine HCl (Apresoline Inj) 10 mg PRN Q4HRS PRN IVP ELEVATED BP, SEE COMMENTS; Start 01/08/17 at 11:30 Docusate Sodium (Colace) 100 mg PRN DAILY PRN PO CONSTIPATION; Start 01/08/17 at 11:30 Insulin Aspart (NovoLOG) 0-9 UNITS TIDWMEALS SQ Last administered on 17:24; Start 01/08/17 at 12:00 Dextrose (Dextrose 50%-Water Syringe) 12.5 gm PRN Q15MIN PRN IV SEE COMMENTS; Start 01/08/17 at 11:30 Enoxaparin Sodium (Lovenox 40mg Syringe) 40 mg Q24H SQ Last administered on 11:58; Start 01/08/17 at 12:00 Gadobutrol (Gadavist) 10 mmol 1X ONCE IV Last administered on 01/08/17 16:46 ; Start 01/08/17 at 16:30; Stop 01/08/17 at 16:32; Status DC Active Scripts Active Erythromycin (Erythromycin Base) 250 Mg Tablet 250 Mg PO QIDACHS Pantoprazole Sodium 40 Mg Tablet.dr 40 Mg PO BIDAC Amitriptyline Hcl 50 Mg Tablet 50 Mg PO DAILY Diazepam 10 Mg Tablet 10 Mg PO PRN Q8HRS PRN Zolpidem Tartrate 10 Mg Tablet 10 Mg PO PRN QHS PRN Carafate (Sucralfate) 1 Gm Tablet 1 Gm PO QIDACHS Hydrocodone-Apap 7.5-325/15 Soln (Hydrocodone Bit/Acetaminophen) 15 Ml Solution 10 Ml PO PRN Q6HRS PRN Reported Spironolactone 50 Mg Tablet 50 Mg PO DAILY Amlodipine Besylate 10 Mg Tablet 10 Mg PO BID Celecoxib 200 Mg Capsule 200 Mg PO DAILY Glimepiride 4 Mg Tablet 4 Mg PO DAILY [Potassium] 20 Meq 20 Meq PO DAILY Allergies Allergies: Coded Allergies: Sulfa (Sulfonamide Antibiotics) (Verified Allergy, Intermediate, 12/22/16) prochlorperazine (Verified Allergy, Intermediate, 12/22/16) Vitals VITALS Vital Signs Date Time Temp Pulse Resp B/P (MAP) Pulse Ox O2 Delivery O2 Flow Rate FiO2 01/08/17 18:28 Room Air 01/08/17 15:00 98.0 95 18 110/69 (83) 95 98.0 Labs Labs Laboratory Tests Test 01/07/17 21:05 01/07/17 21:13 01/07/17 21:41 01/08/17 08:41 White Blood Count 9.4 x10^3/uL (4.0-11.0) Red Blood Count 4.30 x10^6/uL (3.50-5.40) Hemoglobin 12.2 g/dL (12.0-15.5) Hematocrit 36.8 % (36.0-47.0) Mean Corpuscular Volume 86 fL (79-100) Mean Corpuscular Hemoglobin 28 pg (25-35) Mean Corpuscular Hemoglobin Concent 33 g/dL (31-37) Red Cell Distribution Width 19.6 % (11.5-14.5) Platelet Count 226 x10^3/uL (140-400) Neutrophils (%) (Auto) 74 % (31-73) Lymphocytes (%) (Auto) 20 % (24-48) Monocytes (%) (Auto) 6 % (0-9) Eosinophils (%) (Auto) 0 % (0-3) Basophils (%) (Auto) 0 % (0-3) Neutrophils # (Auto) 6.9 x10^3uL (1.8-7.7) Lymphocytes # (Auto) 1.8 x10^3/uL (1.0-4.8) Monocytes # (Auto) 0.6 x10^3/uL (0.0-1.1) Eosinophils # (Auto) 0.0 x10^3/uL (0.0-0.7) Basophils # (Auto) 0.0 x10^3/uL (0.0-0.2) Sodium Level 135 mmol/L (136-145) Potassium Level 4.4 mmol/L (3.5-5.1) Chloride Level 99 mmol/L (98-107) Carbon Dioxide Level 21 mmol/L (21-32) Anion Gap 15 (6-14) Blood Urea Nitrogen 10 mg/dL (7-20) Creatinine 1.3 mg/dL (0.6-1.0) Estimated GFR (Cockcroft-Gault) 49.1 BUN/Creatinine Ratio 8 (6-20) Glucose Level 284 mg/dL (70-99) Calcium Level 10.6 mg/dL (8.5-10.1) Total Bilirubin 0.5 mg/dL (0.2-1.0) Aspartate Amino Transf (AST/SGOT) 33 U/L (15-37) Alanine Aminotransferase (ALT/SGPT) 19 U/L (14-59) Alkaline Phosphatase 54 U/L (46-116) Total Protein 8.3 g/dL (6.4-8.2) Albumin 3.9 g/dL (3.4-5.0) Albumin/Globulin Ratio 0.9 (1.0-1.7) Lipase 377 U/L (73-393) Glucose (Fingerstick) 261 mg/dL (70-99) 203 mg/dL (70-99) Urine Collection Type Unknown Urine Color Yellow Urine Clarity Clear Urine pH 6.0 Urine Specific [place] 1.025 Urine Protein 30 mg/dL (NEG-TRACE) Urine Glucose (UA) >=1000 mg/dL (NEG) Urine Ketones (Stick) 15 mg/dL (NEG) Urine Blood Negative (NEG) Urine Nitrite Negative (NEG) Urine Bilirubin Negative (NEG) Urine Urobilinogen Dipstick 0.2 mg/dL (0.2 mg/dL) Urine Leukocyte Esterase Negative (NEG) Urine RBC Occ /HPF (0-2) Urine WBC Occ /HPF (0-4) Urine Squamous Epithelial Cells Many /LPF Urine Bacteria Many /HPF (0-FEW) Urine Mucus Mod /LPF Test 01/08/17 11:03 01/08/17 15:47 Glucose (Fingerstick) 226 mg/dL (70-99) 180 mg/dL (70-99) Laboratory Tests Test 01/07/17 21:05 01/07/17 21:13 01/07/17 21:41 01/08/17 08:41 White Blood Count 9.4 x10^3/uL (4.0-11.0) Red Blood Count 4.30 x10^6/uL (3.50-5.40) Hemoglobin 12.2 g/dL (12.0-15.5) Hematocrit 36.8 % (36.0-47.0) Mean Corpuscular Volume 86 fL (79-100) Mean Corpuscular Hemoglobin 28 pg (25-35) Mean Corpuscular Hemoglobin Concent 33 g/dL (31-37) Red Cell Distribution Width 19.6 % (11.5-14.5) Platelet Count 226 x10^3/uL (140-400) Neutrophils (%) (Auto) 74 % (31-73) Lymphocytes (%) (Auto) 20 % (24-48) Monocytes (%) (Auto) 6 % (0-9) Eosinophils (%) (Auto) 0 % (0-3) Basophils (%) (Auto) 0 % (0-3) Neutrophils # (Auto) 6.9 x10^3uL (1.8-7.7) Lymphocytes # (Auto) 1.8 x10^3/uL (1.0-4.8) Monocytes # (Auto) 0.6 x10^3/uL (0.0-1.1) Eosinophils # (Auto) 0.0 x10^3/uL (0.0-0.7) Basophils # (Auto) 0.0 x10^3/uL (0.0-0.2) Sodium Level 135 mmol/L (136-145) Potassium Level 4.4 mmol/L (3.5-5.1) Chloride Level 99 mmol/L (98-107) Carbon Dioxide Level 21 mmol/L (21-32) Anion Gap 15 (6-14) Blood Urea Nitrogen 10 mg/dL (7-20) Creatinine 1.3 mg/dL (0.6-1.0) Estimated GFR (Cockcroft-Gault) 49.1 BUN/Creatinine Ratio 8 (6-20) Glucose Level 284 mg/dL (70-99) Calcium Level 10.6 mg/dL (8.5-10.1) Total Bilirubin 0.5 mg/dL (0.2-1.0) Aspartate Amino Transf (AST/SGOT) 33 U/L (15-37) Alanine Aminotransferase (ALT/SGPT) 19 U/L (14-59) Alkaline Phosphatase 54 U/L (46-116) Total Protein 8.3 g/dL (6.4-8.2) Albumin 3.9 g/dL (3.4-5.0) Albumin/Globulin Ratio 0.9 (1.0-1.7) Lipase 377 U/L (73-393) Glucose (Fingerstick) 261 mg/dL (70-99) 203 mg/dL (70-99) Urine Collection Type Unknown Urine Color Yellow Urine Clarity Clear Urine pH 6.0 Urine Specific [place] 1.025 Urine Protein 30 mg/dL (NEG-TRACE) Urine Glucose (UA) >=1000 mg/dL (NEG) Urine Ketones (Stick) 15 mg/dL (NEG) Urine Blood Negative (NEG) Urine Nitrite Negative (NEG) Urine Bilirubin Negative (NEG) Urine Urobilinogen Dipstick 0.2 mg/dL (0.2 mg/dL) Urine Leukocyte Esterase Negative (NEG) Urine RBC Occ /HPF (0-2) Urine WBC Occ /HPF (0-4) Urine Squamous Epithelial Cells Many /LPF Urine Bacteria Many /HPF (0-FEW) Urine Mucus Mod /LPF Test 01/08/17 11:03 01/08/17 15:47 Glucose (Fingerstick) 226 mg/dL (70-99) 180 mg/dL (70-99) KAMRYN CALLEJAS MD Jan 08, 2017 19:06
[2017-01-08] MEDS: NYSTATIN TOPICAL POWDER 15GM BOTTLE. TP SCH (20:40)
[2017-01-09] MEDS: ERYTHROMYCIN LACT 125 MG in IV NORMAL SALINE 100ML 100 ML IV SCH ×5 (00:35→23:20)
[2017-01-09 03:00] VITALS: BP 130/89
[2017-01-09] MEDS: HYDROcodon/APAP 7.5/325MG ORAL 15 ML SOLUTION PO PRN ×3 (04:23→20:44)
[2017-01-09 07:00] VITALS: BP 148/94
[2017-01-09] MEDS: SUCRALFATE 1 GM TABLET. PO SCH ×4 (07:54→20:43)
[2017-01-09] MEDS: PANTOPRAZOLE 40 MG TABLET.DR. PO SCH ×2 (07:54→17:15)
[2017-01-09] MEDS: INSULIN ASPART 300 UNITS/3 ML INSULN.PEN SQ SCH ×3 (08:00→17:00)
[2017-01-09 08:01] LABS: BASO # 0.1 x10^3/uL (0.0-0.2); BASO % 2 % (0-3); EOS % 1 % (0-3); HEMATOCRIT 32.5 % (36.0-47.0); HEMOGLOBIN 10.5 g/dL (12.0-15.5); LYMPH # 2.6 x10^3/uL (1.0-4.8); LYMPH % 32 % (24-48); MEAN CORPUSCULAR HEMOGLOBIN 28 pg (25-35); MEAN CORPUSCULAR HGB CONC 32 g/dL (31-37); MEAN CORPUSCULAR VOLUME 87 fL (79-100); MONO % 7 % (0-9); NEUT % 59 % (31-73); PLATELET COUNT 165 x10^3/uL (140-400); RED BLOOD COUNT 3.73 x10^6/uL (3.50-5.40); RED CELL DISTRIBUTION WIDTH 20.1 % (11.5-14.5)
[2017-01-09 08:06] LABS: CALCIUM 9.1 mg/dL (8.5-10.1); CREATININE 1.1 mg/dL (0.6-1.0); GFR 59.6; POTASSIUM 3.7 mmol/L (3.5-5.1)
[2017-01-09] MEDS: AMITRIPTYLINE HCL 50 MG TABLET PO SCH (08:48)
[2017-01-09] MEDS: POTASSIUM CHLORIDE 20 MEQ TABLET.ER. PO SCH (08:48)
[2017-01-09] MEDS: SPIRONOLACTONE 25 MG TABLET PO SCH (08:48)
[2017-01-09] MEDS: GLIMEPIRIDE 2 MG TABLET. PO SCH (08:48)
[2017-01-09] MEDS: amLODIPine BESYLATE 10 MG TABLET PO SCH ×2 (08:49→20:43)
[2017-01-09] MEDS: NYSTATIN TOPICAL POWDER 15GM BOTTLE. TP SCH ×2 (08:49→20:43)
--- NOTE | 2017-01-09 09:24 | RAD ---
MRI Brain with and without contrast History:ABNORMAL CT, DIZZINESS Technique: Multiplanar, multi sequential pre and postcontrast MR imaging was performed of the brain. Contrast: 10 cc Gadavist Comparison: None Findings: There is no evidence of recent infarct or cytotoxic edema. The ventricles, sulci, and cisterns are within normal limits in size and configuration. There is no significant midline shift, intraaxial mass effect, or focal abnormal extra-axial fluid collection. There is a focus of centrally T2 and FLAIR hyperintense with peripheral rim of decreased T2 signal, hypointense on the gradient echo sequence of the right temporal lobe extending near the margin of the right lateral ventricle. This is not associated with edema or mass effect. This is not associated with significant enhancement, mild adjacent linear enhancement. This is faintly hyperintense centrally on the T1 sequence. There is very minimal T2 and FLAIR hyperintense signal abnormality of the supratentorial white matter bilaterally. This is very faintly hyperdense on CT. There is no nodular parenchymal or leptomeningeal enhancement. There is preservation of the major intracranial flow-voids at the skull base. The cerebellar tonsils are normal in location. There is no significant abnormality of the pineal gland or pituitary gland. There is patchy mild ethmoid air cell mucosal thickening. There has been lens surgery bilaterally. The mastoid air cells are aerated. There is preserved marrow signal of the clivus. There is hyperostosis of the calvarium. Impression: 1. There is no evidence of recent infarct or abnormal intracranial enhancement. Very minimal T2 and FLAIR hyperintense abnormality of the supratentorial white matter bilaterally is probably due to chronic microvascular ischemic disease. 2. Focus of signal abnormality of the right temporal lobe medially has features suggestive of cavernous malformation. Electronically signed by: Baldemar Macias MD (01/09/2017 9:20 AM) [id number]
[2017-01-09 11:04] VITALS: BP 139/89
[2017-01-09] MEDS: ENOXAPARIN 40 MG/0.4 ML SYRINGE. SQ SCH (11:33)
--- NOTE | 2017-01-09 13:32 | PDOC ---
PROGRESS NOTES Chief Complaint Chief Complaint abd pain 2/2 gastroparesis likely DM2, RECent hba1c 7.1 morbid obesity 34.5 BMI depression OA htn hypothyroidism 0.6cm high density on Head CT rt parietal lob multiple abd sx history new diarrhea, not POA plan: gi consulted cont ppi dc reglan, ty qid iv clear liquid advance to full liquid cont po DM2 meds, SSI dvt ppx PTOT educated pt about gastroparesis again check Cdiff neuro consult for head CT abn, MRI brain done, neg. dc tmr History of Present Illness History of Present Illness ROS: no fever, chills, sob or chest pain abd pain 3/10 new 2 times watery diarrhea Vitals Vitals Vital Signs Date Time Temp Pulse Resp B/P (MAP) Pulse Ox O2 Delivery O2 Flow Rate FiO2 01/09/17 12:30 Room Air 01/09/17 11:04 97.6 89 22 139/89 (106) 93 97.6 Physical Exam General: Alert, Oriented X3, Cooperative Heart: Regular rate, Normal S1, Normal S2 Lungs: Clear Abdomen: Normal bowel sounds, Soft, Other ( abd mild tenderness) Extremities: No clubbing, No cyanosis Skin: No rashes Labs LABS Laboratory Tests Test 01/08/17 15:47 01/08/17 19:31 01/09/17 07:19 01/09/17 07:40 Glucose (Fingerstick) 180 mg/dL (70-99) 195 mg/dL (70-99) 129 mg/dL (70-99) White Blood Count 8.0 x10^3/uL (4.0-11.0) Red Blood Count 3.73 x10^6/uL (3.50-5.40) Hemoglobin 10.5 g/dL (12.0-15.5) Hematocrit 32.5 % (36.0-47.0) Mean Corpuscular Volume 87 fL (79-100) Mean Corpuscular Hemoglobin 28 pg (25-35) Mean Corpuscular Hemoglobin Concent 32 g/dL (31-37) Red Cell Distribution Width 20.1 % (11.5-14.5) Platelet Count 165 x10^3/uL (140-400) Neutrophils (%) (Auto) 59 % (31-73) Lymphocytes (%) (Auto) 32 % (24-48) Monocytes (%) (Auto) 7 % (0-9) Eosinophils (%) (Auto) 1 % (0-3) Basophils (%) (Auto) 2 % (0-3) Neutrophils # (Auto) 4.7 x10^3uL (1.8-7.7) Lymphocytes # (Auto) 2.6 x10^3/uL (1.0-4.8) Monocytes # (Auto) 0.5 x10^3/uL (0.0-1.1) Eosinophils # (Auto) 0.1 x10^3/uL (0.0-0.7) Basophils # (Auto) 0.1 x10^3/uL (0.0-0.2) Sodium Level 140 mmol/L (136-145) Potassium Level 3.7 mmol/L (3.5-5.1) Chloride Level 108 mmol/L (98-107) Carbon Dioxide Level 20 mmol/L (21-32) Anion Gap 12 (6-14) Blood Urea Nitrogen 6 mg/dL (7-20) Creatinine 1.1 mg/dL (0.6-1.0) Estimated GFR (Cockcroft-Gault) 59.6 Glucose Level 148 mg/dL (70-99) Calcium Level 9.1 mg/dL (8.5-10.1) Test 01/09/17 10:47 Glucose (Fingerstick) 174 mg/dL (70-99) Assessment and Plan Assessmemt and Plan Problems Medical Problems: (1) Abdominal pain Status: Acute (2) Diabetic gastroparesis Status: Acute (3) Diarrhea Status: Acute (4) Nausea & vomiting Status: Acute Problems: Comment Review of Relevant I have reviewed the following items mert (where applicable) has been applied. Labs Laboratory Tests Test 01/07/17 21:05 01/07/17 21:13 01/07/17 21:41 01/08/17 08:41 White Blood Count 9.4 x10^3/uL (4.0-11.0) Red Blood Count 4.30 x10^6/uL (3.50-5.40) Hemoglobin 12.2 g/dL (12.0-15.5) Hematocrit 36.8 % (36.0-47.0) Mean Corpuscular Volume 86 fL (79-100) Mean Corpuscular Hemoglobin 28 pg (25-35) Mean Corpuscular Hemoglobin Concent 33 g/dL (31-37) Red Cell Distribution Width 19.6 % (11.5-14.5) Platelet Count 226 x10^3/uL (140-400) Neutrophils (%) (Auto) 74 % (31-73) Lymphocytes (%) (Auto) 20 % (24-48) Monocytes (%) (Auto) 6 % (0-9) Eosinophils (%) (Auto) 0 % (0-3) Basophils (%) (Auto) 0 % (0-3) Neutrophils # (Auto) 6.9 x10^3uL (1.8-7.7) Lymphocytes # (Auto) 1.8 x10^3/uL (1.0-4.8) Monocytes # (Auto) 0.6 x10^3/uL (0.0-1.1) Eosinophils # (Auto) 0.0 x10^3/uL (0.0-0.7) Basophils # (Auto) 0.0 x10^3/uL (0.0-0.2) Sodium Level 135 mmol/L (136-145) Potassium Level 4.4 mmol/L (3.5-5.1) Chloride Level 99 mmol/L (98-107) Carbon Dioxide Level 21 mmol/L (21-32) Anion Gap 15 (6-14) Blood Urea Nitrogen 10 mg/dL (7-20) Creatinine 1.3 mg/dL (0.6-1.0) Estimated GFR (Cockcroft-Gault) 49.1 BUN/Creatinine Ratio 8 (6-20) Glucose Level 284 mg/dL (70-99) Calcium Level 10.6 mg/dL (8.5-10.1) Total Bilirubin 0.5 mg/dL (0.2-1.0) Aspartate Amino Transf (AST/SGOT) 33 U/L (15-37) Alanine Aminotransferase (ALT/SGPT) 19 U/L (14-59) Alkaline Phosphatase 54 U/L (46-116) Total Protein 8.3 g/dL (6.4-8.2) Albumin 3.9 g/dL (3.4-5.0) Albumin/Globulin Ratio 0.9 (1.0-1.7) Lipase 377 U/L (73-393) Glucose (Fingerstick) 261 mg/dL (70-99) 203 mg/dL (70-99) Urine Collection Type Unknown Urine Color Yellow Urine Clarity Clear Urine pH 6.0 Urine Specific Oscar 1.025 Urine Protein 30 mg/dL (NEG-TRACE) Urine Glucose (UA) >=1000 mg/dL (NEG) Urine Ketones (Stick) 15 mg/dL (NEG) Urine Blood Negative (NEG) Urine Nitrite Negative (NEG) Urine Bilirubin Negative (NEG) Urine Urobilinogen Dipstick 0.2 mg/dL (0.2 mg/dL) Urine Leukocyte Esterase Negative (NEG) Urine RBC Occ /HPF (0-2) Urine WBC Occ /HPF (0-4) Urine Squamous Epithelial Cells Many /LPF Urine Bacteria Many /HPF (0-FEW) Urine Mucus Mod /LPF Test 01/08/17 11:03 01/08/17 15:47 01/08/17 19:31 01/09/17 07:19 Glucose (Fingerstick) 226 mg/dL (70-99) 180 mg/dL (70-99) 195 mg/dL (70-99) 129 mg/dL (70-99) Test 01/09/17 07:40 01/09/17 10:47 White Blood Count 8.0 x10^3/uL (4.0-11.0) Red Blood Count 3.73 x10^6/uL (3.50-5.40) Hemoglobin 10.5 g/dL (12.0-15.5) Hematocrit 32.5 % (36.0-47.0) Mean Corpuscular Volume 87 fL (79-100) Mean Corpuscular Hemoglobin 28 pg (25-35) Mean Corpuscular Hemoglobin Concent 32 g/dL (31-37) Red Cell Distribution Width 20.1 % (11.5-14.5) Platelet Count 165 x10^3/uL (140-400) Neutrophils (%) (Auto) 59 % (31-73) Lymphocytes (%) (Auto) 32 % (24-48) Monocytes (%) (Auto) 7 % (0-9) Eosinophils (%) (Auto) 1 % (0-3) Basophils (%) (Auto) 2 % (0-3) Neutrophils # (Auto) 4.7 x10^3uL (1.8-7.7) Lymphocytes # (Auto) 2.6 x10^3/uL (1.0-4.8) Monocytes # (Auto) 0.5 x10^3/uL (0.0-1.1) Eosinophils # (Auto) 0.1 x10^3/uL (0.0-0.7) Basophils # (Auto) 0.1 x10^3/uL (0.0-0.2) Sodium Level 140 mmol/L (136-145) Potassium Level 3.7 mmol/L (3.5-5.1) Chloride Level 108 mmol/L (98-107) Carbon Dioxide Level 20 mmol/L (21-32) Anion Gap 12 (6-14) Blood Urea Nitrogen 6 mg/dL (7-20) Creatinine 1.1 mg/dL (0.6-1.0) Estimated GFR (Cockcroft-Gault) 59.6 Glucose Level 148 mg/dL (70-99) Calcium Level 9.1 mg/dL (8.5-10.1) Glucose (Fingerstick) 174 mg/dL (70-99) Laboratory Tests Test 01/08/17 15:47 01/08/17 19:31 01/09/17 07:19 01/09/17 07:40 Glucose (Fingerstick) 180 mg/dL (70-99) 195 mg/dL (70-99) 129 mg/dL (70-99) White Blood Count 8.0 x10^3/uL (4.0-11.0) Red Blood Count 3.73 x10^6/uL (3.50-5.40) Hemoglobin 10.5 g/dL (12.0-15.5) Hematocrit 32.5 % (36.0-47.0) Mean Corpuscular Volume 87 fL (79-100) Mean Corpuscular Hemoglobin 28 pg (25-35) Mean Corpuscular Hemoglobin Concent 32 g/dL (31-37) Red Cell Distribution Width 20.1 % (11.5-14.5) Platelet Count 165 x10^3/uL (140-400) Neutrophils (%) (Auto) 59 % (31-73) Lymphocytes (%) (Auto) 32 % (24-48) Monocytes (%) (Auto) 7 % (0-9) Eosinophils (%) (Auto) 1 % (0-3) Basophils (%) (Auto) 2 % (0-3) Neutrophils # (Auto) 4.7 x10^3uL (1.8-7.7) Lymphocytes # (Auto) 2.6 x10^3/uL (1.0-4.8) Monocytes # (Auto) 0.5 x10^3/uL (0.0-1.1) Eosinophils # (Auto) 0.1 x10^3/uL (0.0-0.7) Basophils # (Auto) 0.1 x10^3/uL (0.0-0.2) Sodium Level 140 mmol/L (136-145) Potassium Level 3.7 mmol/L (3.5-5.1) Chloride Level 108 mmol/L (98-107) Carbon Dioxide Level 20 mmol/L (21-32) Anion Gap 12 (6-14) Blood Urea Nitrogen 6 mg/dL (7-20) Creatinine 1.1 mg/dL (0.6-1.0) Estimated GFR (Cockcroft-Gault) 59.6 Glucose Level 148 mg/dL (70-99) Calcium Level 9.1 mg/dL (8.5-10.1) Test 01/09/17 10:47 Glucose (Fingerstick) 174 mg/dL (70-99) Medications Current Medications Sodium Chloride 1,000 ml @ 1,000 mls/hr 1X ONCE IV Last administered on 01/07 22:23; Start 01/07/17 at 22:00; Stop 01/07/17 at 22:59; Status DC Ondansetron HCl (Zofran) 4 mg 1X ONCE IV Last administered on 01/07/17 22:06 ; Start 01/07/17 at 22:15; Stop 01/07/17 at 22:16; Status DC Hydromorphone HCl (Dilaudid) 0.5 mg 1X ONCE IV Last administered on 22:06; Start 01/07/17 at 22:15; Stop 01/07/17 at 22:16; Status DC Ondansetron HCl (Zofran) 4 mg PRN Q8HRS PRN IV NAUSEA/VOMITING Last administered on 01/08/17 02:20; Start 01/07/17 at 23:00; Stop 01/08/17 at 22 :59; Status DC Sodium Chloride 1,000 ml @ 125 mls/hr Q8H IV Last administered on 01/08/17 07:51; Start 01/07/17 at 23:00; Stop 01/08/17 at 22:59; Status DC Metoclopramide HCl (Reglan Vial) 10 mg QIDACHS IV Last administered on 07:47; Start 01/07/17 at 23:30; Stop 01/08/17 at 10:08; Status DC Hydromorphone HCl (Dilaudid) 0.5 mg 1X ONCE IV Last administered on 01:09; Start 01/07/17 at 23:15; Stop 01/07/17 at 23:16; Status DC Heparin Sodium (Porcine) (Hep Lock Adult) 500 unit STK-MED ONCE IV ; Start at 22:55; Stop 01/07/17 at 22:56; Status DC Hydromorphone HCl (Dilaudid) 0.2 mg 1X ONCE IVP Last administered on 07:47; Start 01/08/17 at 07:15; Stop 01/08/17 at 07:18; Status DC Erythromycin Lactobionate 125 mg/Sodium Chloride 100 ml @ 100 mls/hr Q6HRS IV Last administered on 01/09/17 11:32; Start 01/08/17 at 11:00 Amitriptyline HCl (Amitriptyline HCl) 50 mg DAILY PO Last administered on 01/09 08:48; Start 01/08/17 at 12:00 Amlodipine Besylate (Norvasc) 10 mg BID PO Last administered on 01/09/17 08: 49; Start 01/08/17 at 12:00 Diazepam (Valium) 10 mg PRN Q8HRS PRN PO ANXIETY / AGITATION; Start 01/08/17 at 11:45 Acetaminophen/ Hydrocodone Bitart (Lortab 7.5-325/ 15ml Oral Solution) 10 ml PRN Q6HRS PRN PO PAIN Last administered on 01/09/17 11:32; Start 01/08/17 at 11:30 Pantoprazole Sodium (Protonix) 40 mg BIDAC PO Last administered on 01/09/17 07:54; Start 01/08/17 at 11:30 Sucralfate (Carafate) 1 gm QIDACHS PO Last administered on 01/09/17 11:32; Start 01/08/17 at 11:30 Glimepiride (Amaryl) 4 mg DAILY PO Last administered on 01/09/17 08:48; Start 01/08/17 at 12:00 Spironolactone (Aldactone) 50 mg DAILY PO Last administered on 01/09/17 08:48 ; Start 01/08/17 at 12:00 Zolpidem Tartrate (Ambien) 5 mg PRN QHS PRN PO INSOMNIA; Start 01/08/17 at 11: 45 Potassium Chloride (Klor-Con) 20 meq [id number] PO Last administered on 08:48; Start 01/08/17 at 12:00 Acetaminophen (Tylenol) 650 mg PRN Q6HRS PRN PO FEVER Last administered on 07:54; Start 01/08/17 at 11:30 Ondansetron HCl (Zofran) 4 mg PRN Q6HRS PRN IV NAUSEA/VOMITING; Start at 11:30 Morphine Sulfate 2 mg PRN Q2HR PRN IV PAIN Last administered on 01/08/17 20: 40; Start 01/08/17 at 11:30 Tramadol HCl (Ultram) 50 mg PRN Q6HRS PRN PO PAIN Last administered on 12:08; Start 01/08/17 at 11:30 Hydralazine HCl (Apresoline Inj) 10 mg PRN Q4HRS PRN IVP ELEVATED BP, SEE COMMENTS; Start 01/08/17 at 11:30 Docusate Sodium (Colace) 100 mg PRN DAILY PRN PO CONSTIPATION; Start 01/08/17 at 11:30 Insulin Aspart (NovoLOG) 0-9 UNITS TIDWMEALS SQ Last administered on 12:18; Start 01/08/17 at 12:00 Dextrose (Dextrose 50%-Water Syringe) 12.5 gm PRN Q15MIN PRN IV SEE COMMENTS; Start 01/08/17 at 11:30 Enoxaparin Sodium (Lovenox 40mg Syringe) 40 mg Q24H SQ Last administered on 11:33; Start 01/08/17 at 12:00 Gadobutrol (Gadavist) 10 mmol 1X ONCE IV Last administered on 01/08/17 16:46 ; Start 01/08/17 at 16:30; Stop 01/08/17 at 16:32; Status DC Nystatin (Nystop) 1 kelly BID TP Last administered on 01/09/17 08:49; Start at 21:00 Active Scripts Active Erythromycin (Erythromycin Base) 250 Mg Tablet 250 Mg PO QIDACHS Pantoprazole Sodium 40 Mg Tablet.dr 40 Mg PO BIDAC Amitriptyline Hcl 50 Mg Tablet 50 Mg PO DAILY Diazepam 10 Mg Tablet 10 Mg PO PRN Q8HRS PRN Zolpidem Tartrate 10 Mg Tablet 10 Mg PO PRN QHS PRN Carafate (Sucralfate) 1 Gm Tablet 1 Gm PO QIDACHS Hydrocodone-Apap 7.5-325/15 Soln (Hydrocodone Bit/Acetaminophen) 15 Ml Solution 10 Ml PO PRN Q6HRS PRN Reported Spironolactone 50 Mg Tablet 50 Mg PO DAILY Amlodipine Besylate 10 Mg Tablet 10 Mg PO BID Celecoxib 200 Mg Capsule 200 Mg PO DAILY Glimepiride 4 Mg Tablet 4 Mg PO DAILY [Potassium] 20 Meq 20 Meq PO DAILY Vitals/I & O Vital Sign - Last 24 Hours 01/08/17 01/08/17 01/08/17 01/08/17 13:35 13:35 14:12 15:00 Temp 98.0 98.0 Pulse 95 Resp 20 18 B/P (MAP) 110/69 (83) Pulse Ox 95 O2 Delivery Room Air Room Air Room Air 01/08/17 01/08/17 01/08/17 01/08/17 17:18 19:00 19:53 20:39 Temp 98.1 98.1 Pulse 88 88 Resp 19 B/P (MAP) 118/71 (87) 118/71 Pulse Ox 94 O2 Delivery Room Air Room Air Room Air 01/08/17 01/08/17 01/08/17 01/09/17 20:40 21:09 23:00 03:00 Temp 98.1 97.9 98.1 97.9 Pulse 88 110 Resp 19 18 B/P (MAP) 118/71 (87) 130/89 (103) Pulse Ox 95 95 94 94 O2 Delivery Room Air Room Air Room Air Room Air 01/09/17 01/09/17 01/09/17 01/09/17 04:23 05:23 07:00 08:49 Temp 96.7 96.7 Pulse 87 87 Resp 22 B/P (MAP) 148/94 (112) 148/94 Pulse Ox 94 94 100 O2 Delivery Room Air Room Air 01/09/17 01/09/17 01/09/17 11:04 11:32 12:30 Temp 97.6 97.6 Pulse 89 Resp 22 B/P (MAP) 139/89 (106) Pulse Ox 93 O2 Delivery Room Air Room Air Room Air Intake and Output 01/08/17 01/08/17 01/09/17 15:00 23:00 07:00 Intake Total 369 ml 966 ml 2200 ml Output Total 600 ml Balance -231 ml 966 ml 2200 ml ROSANA MELENDEZ MD Jan 09, 2017 13:32
--- NOTE | 2017-01-09 14:47 | PDOC ---
Subjective: Subjective: Says she's not keeping food down but denies vomiting. Objective: Objective: Per RN - no vomiting, had a formed stool. RN called earlier this in day, pt asking to advance diet, gave order for full liquids. Vital Signs: Vital Signs Date Time Temp Pulse Resp B/P (MAP) Pulse Ox O2 Delivery O2 Flow Rate FiO2 01/09/17 12:30 Room Air 01/09/17 11:04 97.6 89 22 139/89 (106) 93 97.6 Labs: Laboratory Tests Test 01/08/17 15:47 01/08/17 19:31 01/09/17 07:19 01/09/17 10:47 Glucose (Fingerstick) 180 mg/dL (70-99) 195 mg/dL (70-99) 129 mg/dL (70-99) 174 mg/dL (70-99) Imaging: Brain MRI Impression: 1. There is no evidence of recent infarct or abnormal intracranial enhancement. Very minimal T2 and FLAIR hyperintense abnormality of the supratentorial white matter bilaterally is probably due to chronic microvascular ischemic disease. 2. Focus of signal abnormality of the right temporal lobe medially has features suggestive of cavernous malformation. Head CT Impression: 1. Tiny, 0.6 cm, right parietal periventricular high density structure. Finding is indeterminate between benign and malignant etiologies. Considerations include periventricular heterotopic santos matter, though metastatic disease from an unknown primary or primary brain malignancy cannot be definitively excluded. Artifact is additional consideration. MRI brain without and with contrast is recommended for further characterization. 2. No acute intracranial hemorrhage. PE: GEN: NAD LUNGS: CTAB HEART: RRR ABD: BS+, not particularly tender NEURO/PSYCH: A & O 3 A/P: Gastroparesis Recurrent n/v, abd pain Abnormal head imaging -per neuro -- Will review w/ Dr. Merritt re: changing erythromycin to PO. HARLEY GOEL Jan 09, 2017 14:47
[2017-01-09 15:00] VITALS: BP 129/89
--- NOTE | 2017-01-09 16:55 | PDOC ---
PROGRESS NOTES Assessment Assessment Abnormal HCT finding, 0.6 cm lesion in right parietal lobe. 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 Abdominal pain. DM HTN HLD Hypothyroidism Obesity. RECOMMENDATIONS/PLAN: Treat medical diseases. OT/PT. HISTORY OF THE PRESENT ILLNESS: 71-y-old AA female patient with above medical diseases developed abdominal pain to come to the ER. Her HCT showed a 0.6 cm lesion in the right parietal lobe, so Neurology was requested for consultation. Patient denied Hx of brain tumor, CVA, or MS. Past Medical History Cardiovascular: HTN Pulmonary: Pulmonary embolus, Other Psych: Anxiety Endocrine: Diabetes, Hypothyroidism Past Surgical History Cholecystectomy, Total knee replacement, Hysterectomy, Other Family History Coronary Artery Disease, Diabetes, Hypertension Social History Smoke: No ALCOHOL: none Drugs: None ALLERGY: Reviewed. MEDICATIONS: Refer to MAR REVIEW OF SYSTEMS: Constitutional: No malnutrition, weight loss, cachexia. Head: No traumatic brain or head injury. Skin: No edema, or rash. Ear: No infection, tinnitus. Eyes: No vision loss or color blindness. Nose: No bleeding or purulent discharges. Hearing: No hearing decrease. Neck: No injury. Breast: No history of cancer, masses,or discharges. Cardiac: HTN, HLD. Pulmonary: No pneumonia. GI: No GI ulcer, GI bleeding. Urinary/genital: UTI. Endocrinologic: Diabetes Mellitus. Skeletomuscular: No muscular atrophy, deformity. Neurological: see HP. Psychiatric: Denies drug use/abuse. Otherwise, not [id number] review of systems. PHYSICAL EXAMINATION: General appearance is in subacute distress. HEENT: Normocephalic and nontraumatic. Eyes, nose, ears, and throat are unremarkable. Neck is supple. No lymphadenopathy. No crepitus. Cardiovascular: S1, S2, regular rate and rhythm. Pulmonary: Clear to auscultation bilaterally. Abdomen: Bowel sounds are positive. Extremities: No rash, lesions, or edema. No restriction of range of motion NEUROLOGICAL EXAMINATION: Awake. Oriented to time, place and person. PERRL. EOMI. CN: no focal findings. Muscle tone: within normal. Muscle strength: 4+ DTR: 1+ due to obesity. Plantar reflex: Flexor response bilaterally Gait: not examined in bed. Sensory exam: no abnormal findings. No cerebellar signs elicited. F-T-N test accurate. Objective Objective Vital Signs Date Time Temp Pulse Resp B/P (MAP) Pulse Ox O2 Delivery O2 Flow Rate FiO2 01/09/17 15:00 97.7 86 20 129/89 (102) 96 Room Air 97.7 Intake and Output 01/09/17 07:00 Intake Total 3535 ml Output Total 600 ml Balance 2935 ml Intake Oral 629 ml IV Total 2906 ml Output Urine Total 600 ml # Voids 4 Vitals Signs Vitals VS - Last 72 Hours, by Label Date Time Temp Pulse Resp B/P (MAP) Pulse Ox O2 Delivery O2 Flow Rate FiO2 01/09/17 15:00 97.7 86 20 129/89 (102) 96 Room Air 97.7 01/09/17 12:30 Room Air 01/09/17 11:32 Room Air 01/09/17 11:04 97.6 89 22 139/89 (106) 93 Room Air 97.6 01/09/17 08:49 87 148/94 01/09/17 07:45 Room Air 01/09/17 07:00 96.7 87 22 148/94 (112) 100 Room Air 96.7 01/09/17 05:23 94 01/09/17 04:23 94 Room Air 01/09/17 03:00 97.9 110 18 130/89 (103) 94 Room Air 97.9 01/08/17 23:00 98.1 88 19 118/71 (87) 94 Room Air 98.1 01/08/17 21:09 95 Room Air 01/08/17 20:40 95 Room Air 01/08/17 20:39 88 118/71 01/08/17 19:53 Room Air 01/08/17 19:00 98.1 88 19 118/71 (87) 94 Room Air 98.1 01/08/17 17:18 Room Air 01/08/17 15:00 98.0 95 18 110/69 (83) 95 Room Air 98.0 01/08/17 14:12 20 01/08/17 13:35 Room Air 01/08/17 13:35 Room Air 01/08/17 12:08 Room Air 01/08/17 11:57 72 124/70 01/08/17 11:00 98.0 72 22 124/70 (88) 96 98.0 01/08/17 08:45 Room Air 01/08/17 07:50 Room Air 01/08/17 07:47 Room Air 01/08/17 07:00 98.2 89 20 130/76 (94) 96 98.2 Laboratory Laboratory Laboratory Tests Test 01/08/17 19:31 01/09/17 07:19 01/09/17 07:40 01/09/17 10:47 Glucose (Fingerstick) 195 mg/dL (70-99) 129 mg/dL (70-99) 174 mg/dL (70-99) White Blood Count 8.0 x10^3/uL (4.0-11.0) Red Blood Count 3.73 x10^6/uL (3.50-5.40) Hemoglobin 10.5 g/dL (12.0-15.5) Hematocrit 32.5 % (36.0-47.0) Mean Corpuscular Volume 87 fL (79-100) Mean Corpuscular Hemoglobin 28 pg (25-35) Mean Corpuscular Hemoglobin Concent 32 g/dL (31-37) Red Cell Distribution Width 20.1 % (11.5-14.5) Platelet Count 165 x10^3/uL (140-400) Neutrophils (%) (Auto) 59 % (31-73) Lymphocytes (%) (Auto) 32 % (24-48) Monocytes (%) (Auto) 7 % (0-9) Eosinophils (%) (Auto) 1 % (0-3) Basophils (%) (Auto) 2 % (0-3) Neutrophils # (Auto) 4.7 x10^3uL (1.8-7.7) Lymphocytes # (Auto) 2.6 x10^3/uL (1.0-4.8) Monocytes # (Auto) 0.5 x10^3/uL (0.0-1.1) Eosinophils # (Auto) 0.1 x10^3/uL (0.0-0.7) Basophils # (Auto) 0.1 x10^3/uL (0.0-0.2) Sodium Level 140 mmol/L (136-145) Potassium Level 3.7 mmol/L (3.5-5.1) Chloride Level 108 mmol/L (98-107) Carbon Dioxide Level 20 mmol/L (21-32) Anion Gap 12 (6-14) Blood Urea Nitrogen 6 mg/dL (7-20) Creatinine 1.1 mg/dL (0.6-1.0) Estimated GFR (Cockcroft-Gault) 59.6 Glucose Level 148 mg/dL (70-99) Calcium Level 9.1 mg/dL (8.5-10.1) Test 01/09/17 16:15 Glucose (Fingerstick) 135 mg/dL (70-99) Microbiology 01/07/17 Urine Culture - Preliminary, Resulted 01/07/17 Urine Culture Result 1 (CABRERA) - Preliminary, Resulted Medication Medications Current Medications Nystatin (Nystop) 1 kelly BID TP Last administered on 01/09/17t 08:49; Start at 21:00 Comment Review of Relevant I have reviewed the following items mert (where applicable) has been applied. KAMRYN CALLEJAS MD Jan 09, 2017 16:55
[2017-01-09 19:00] VITALS: BP 126/85
[2017-01-09 23:00] VITALS: BP 139/92
[2017-01-09] MEDS: MORPHINE SULFATE 4 MG/ML DISP.SYRIN. IV PRN (23:24)
[2017-01-10 03:00] VITALS: BP 144/93
[2017-01-10] MEDS: HYDROcodon/APAP 7.5/325MG ORAL 15 ML SOLUTION PO PRN ×2 (03:52→10:43)
[2017-01-10] MEDS: ERYTHROMYCIN LACT 125 MG in IV NORMAL SALINE 100ML 100 ML IV SCH (06:05)
[2017-01-10 07:00] VITALS: BP 132/82
[2017-01-10] MEDS: SUCRALFATE 1 GM TABLET. PO SCH ×3 (07:35→16:59)
[2017-01-10] MEDS: PANTOPRAZOLE 40 MG TABLET.DR. PO SCH ×2 (07:36→16:59)
[2017-01-10] MEDS: INSULIN ASPART 300 UNITS/3 ML INSULN.PEN SQ SCH ×3 (08:00→17:05)
[2017-01-10] MEDS: POTASSIUM CHLORIDE 20 MEQ TABLET.ER. PO SCH (08:20)
[2017-01-10] MEDS: AMITRIPTYLINE HCL 50 MG TABLET PO SCH (08:21)
[2017-01-10] MEDS: SPIRONOLACTONE 25 MG TABLET PO SCH (08:21)
[2017-01-10] MEDS: GLIMEPIRIDE 2 MG TABLET. PO SCH (08:21)
[2017-01-10] MEDS: NYSTATIN TOPICAL POWDER 15GM BOTTLE. TP SCH (08:22)
[2017-01-10] MEDS: amLODIPine BESYLATE 10 MG TABLET PO SCH (08:22)
[2017-01-10 09:24] VITALS: BP 132/82
[2017-01-10 09:31] LABS: BASO % 1 % (0-3); EOS % 2 % (0-3); HEMATOCRIT 34.2 % (36.0-47.0); HEMOGLOBIN 11.1 g/dL (12.0-15.5); LYMPH # 2.7 x10^3/uL (1.0-4.8); LYMPH % 39 % (24-48); MEAN CORPUSCULAR HEMOGLOBIN 28 pg (25-35); MEAN CORPUSCULAR HGB CONC 33 g/dL (31-37); MEAN CORPUSCULAR VOLUME 87 fL (79-100); MONO % 7 % (0-9); NEUT % 52 % (31-73); PLATELET COUNT 203 x10^3/uL (140-400); RED BLOOD COUNT 3.92 x10^6/uL (3.50-5.40); RED CELL DISTRIBUTION WIDTH 20.2 % (11.5-14.5); WHITE BLOOD COUNT 7.1 x10^3/uL (4.0-11.0)
[2017-01-10 09:52] LABS: CALCIUM 9.3 mg/dL (8.5-10.1); CREATININE 1.1 mg/dL (0.6-1.0); GFR 59.6; POTASSIUM 3.4 mmol/L (3.5-5.1)
[2017-01-10] MEDS ORDERED: POTASSIUM CHLORIDE 20 MEQ TABLET.ER. PO ONE (10:30)
--- NOTE | 2017-01-10 10:43 | PDOC ---
Subjective: Subjective: Better, just took a shower. When asked if she's able to eat without vomiting, she says, "I wouldn't go that far." Objective: Objective: No vomiting per RN. Vital Signs: Vital Signs Date Time Temp Pulse Resp B/P (MAP) Pulse Ox O2 Delivery O2 Flow Rate FiO2 01/10/17 09:24 98.1 85 18 132/82 (99) 95 Room Air 98.1 Labs: Laboratory Tests Test 01/09/17 10:47 01/09/17 16:15 01/09/17 21:02 01/10/17 07:46 Glucose (Fingerstick) 174 mg/dL (70-99) 135 mg/dL (70-99) 167 mg/dL (70-99) 124 mg/dL (70-99) PE: GEN: up to chair LUNGS: CTAB HEART: RRR ABD: NABS, S/ND/NT NEURO/PSYCH: A & O 3 A/P: Gastroparesis -tolerating PO w/ IV e-mycin -- No vomiting witnessed by staff, difficult history from her. Change to PO e-mycin, continue PPI. HARLEY GOEL Jan 10, 2017 10:43
[2017-01-10 11:00] VITALS: BP 124/75
[2017-01-10] MEDS: ERYTHROMYCIN BASE 250 MG TABLET PO SCH ×2 (11:49→16:59)
[2017-01-10] MEDS: ENOXAPARIN 40 MG/0.4 ML SYRINGE. SQ SCH (11:50)
[2017-01-10] MEDS: traMADol 50 MG TABLET PO PRN (11:50)
[2017-01-10 13:22] LABS: ANISOCYTOSIS MOD; PLT ESTIMATE ADEQUATE (ADEQUATE)
[2017-01-10] MEDS ORDERED: ERYT250T14 PO (14:02)
--- NOTE | 2017-01-10 14:02 | PDOC ---
PROGRESS NOTES Assessment Assessment Abnormal HCT finding, 0.6 cm lesion in right parietal lobe. 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 Abdominal pain. DM HTN HLD Hypothyroidism Obesity. RECOMMENDATIONS/PLAN: Treat medical diseases. See Neurosurgery as outpatient for small cavenous malformation likely. OT/PT. HISTORY OF THE PRESENT ILLNESS: 71-y-old AA female patient with above medical diseases developed abdominal pain to come to the ER. Her HCT showed a 0.6 cm lesion in the right parietal lobe, so Neurology was requested for consultation. Patient denied Hx of brain tumor, CVA, or MS. Past Medical History Cardiovascular: HTN Pulmonary: Pulmonary embolus, Other Psych: Anxiety Endocrine: Diabetes, Hypothyroidism Past Surgical History Cholecystectomy, Total knee replacement, Hysterectomy, Other Family History Coronary Artery Disease, Diabetes, Hypertension Social History Smoke: No ALCOHOL: none Drugs: None ALLERGY: Reviewed. MEDICATIONS: Refer to MAR REVIEW OF SYSTEMS: Constitutional: No malnutrition, weight loss, cachexia. Head: No traumatic brain or head injury. Skin: No edema, or rash. Ear: No infection, tinnitus. Eyes: No vision loss or color blindness. Nose: No bleeding or purulent discharges. Hearing: No hearing decrease. Neck: No injury. Breast: No history of cancer, masses,or discharges. Cardiac: HTN, HLD. Pulmonary: No pneumonia. GI: No GI ulcer, GI bleeding. Urinary/genital: UTI. Endocrinologic: Diabetes Mellitus. Skeletomuscular: No muscular atrophy, deformity. Neurological: see HP. Psychiatric: Denies drug use/abuse. Otherwise, not [id number] review of systems. PHYSICAL EXAMINATION: General appearance is in subacute distress. HEENT: Normocephalic and nontraumatic. Eyes, nose, ears, and throat are unremarkable. Neck is supple. No lymphadenopathy. No crepitus. Cardiovascular: S1, S2, regular rate and rhythm. Pulmonary: Clear to auscultation bilaterally. Abdomen: Bowel sounds are positive. Extremities: No rash, lesions, or edema. No restriction of range of motion NEUROLOGICAL EXAMINATION: Awake. Oriented to time, place and person. PERRL. EOMI. CN: no focal findings. Muscle tone: within normal. Muscle strength: 4+ DTR: 1+ due to obesity. Plantar reflex: Flexor response bilaterally Gait: not examined in bed. Sensory exam: no abnormal findings. No cerebellar signs elicited. F-T-N test accurate. Objective Objective Vital Signs Date Time Temp Pulse Resp B/P (MAP) Pulse Ox O2 Delivery O2 Flow Rate FiO2 01/10/17 11:50 Room Air 01/10/17 11:00 98.5 92 18 124/75 (91) 98 98.5 Intake and Output 01/10/17 07:00 Intake Total 936 ml Output Total 500 ml Balance 436 ml Intake Oral 636 ml IV Total 300 ml Output Urine Total 500 ml # Voids 3 # Bowel Movements 2 Vitals Signs Vitals VS - Last 72 Hours, by Label Date Time Temp Pulse Resp B/P (MAP) Pulse Ox O2 Delivery O2 Flow Rate FiO2 01/10/17 11:50 Room Air 01/10/17 11:00 98.5 92 18 124/75 (91) 98 Room Air 98.5 01/10/17 10:43 Room Air 01/10/17 09:24 98.1 85 18 132/82 (99) 95 Room Air 98.1 01/10/17 08:22 103 144/93 01/10/17 07:54 Room Air 01/10/17 07:00 98.1 85 18 132/82 (99) 95 Room Air 98.1 01/10/17 04:52 93 Room Air 01/10/17 03:52 93 Room Air 01/10/17 03:00 99.7 103 17 144/93 (110) 93 Room Air 99.7 01/09/17 23:54 96 Room Air 01/09/17 23:24 96 Room Air 01/09/17 23:00 98.4 91 16 139/92 (108) 94 Room Air 98.4 01/09/17 20:44 96 Room Air 01/09/17 20:43 86 129/89 01/09/17 20:00 Room Air 01/09/17 19:00 98.1 87 16 126/85 (99) 95 Room Air 98.1 01/09/17 15:00 97.7 86 20 129/89 (102) 96 Room Air 97.7 01/09/17 11:32 Room Air 01/09/17 11:04 97.6 89 22 139/89 (106) 93 Room Air 97.6 01/09/17 08:49 87 148/94 01/09/17 07:45 Room Air 01/09/17 07:00 96.7 87 22 148/94 (112) 100 Room Air 96.7 Laboratory Laboratory Laboratory Tests Test 01/09/17 16:15 01/09/17 21:02 01/10/17 07:46 01/10/17 09:00 Glucose (Fingerstick) 135 mg/dL (70-99) 167 mg/dL (70-99) 124 mg/dL (70-99) White Blood Count 7.1 x10^3/uL (4.0-11.0) Red Blood Count 3.92 x10^6/uL (3.50-5.40) Hemoglobin 11.1 g/dL (12.0-15.5) Hematocrit 34.2 % (36.0-47.0) Mean Corpuscular Volume 87 fL (79-100) Mean Corpuscular Hemoglobin 28 pg (25-35) Mean Corpuscular Hemoglobin Concent 33 g/dL (31-37) Red Cell Distribution Width 20.2 % (11.5-14.5) Platelet Count 203 x10^3/uL (140-400) Neutrophils (%) (Auto) 52 % (31-73) Lymphocytes (%) (Auto) 39 % (24-48) Monocytes (%) (Auto) 7 % (0-9) Eosinophils (%) (Auto) 2 % (0-3) Basophils (%) (Auto) 1 % (0-3) Neutrophils # (Auto) 3.7 x10^3uL (1.8-7.7) Lymphocytes # (Auto) 2.7 x10^3/uL (1.0-4.8) Monocytes # (Auto) 0.5 x10^3/uL (0.0-1.1) Eosinophils # (Auto) 0.1 x10^3/uL (0.0-0.7) Basophils # (Auto) 0.0 x10^3/uL (0.0-0.2) Platelet Estimate Adequate (ADEQUATE) Anisocytosis Mod Sodium Level 138 mmol/L (136-145) Potassium Level 3.4 mmol/L (3.5-5.1) Chloride Level 103 mmol/L (98-107) Carbon Dioxide Level 22 mmol/L (21-32) Anion Gap 13 (6-14) Blood Urea Nitrogen 5 mg/dL (7-20) Creatinine 1.1 mg/dL (0.6-1.0) Estimated GFR (Cockcroft-Gault) 59.6 Glucose Level 202 mg/dL (70-99) Calcium Level 9.3 mg/dL (8.5-10.1) Test 01/10/17 11:15 Glucose (Fingerstick) 234 mg/dL (70-99) Microbiology 01/07/17 Urine Culture - Preliminary, Resulted 01/07/17 Urine Culture Result 1 (CABRERA) - Preliminary, Resulted Medication Medications Current Medications Erythromycin (E-Mycin) 250 mg QIDACHS PO Last administered on 01/10/17 11:49 ; Start 01/10/17 at 11:30 Potassium Chloride (Klor-Con) 40 meq 1X ONCE PO Last administered on 10:42; Start 01/10/17 at 10:30; Stop 01/10/17 at 10:31; Status DC Comment Review of Relevant I have reviewed the following items mert (where applicable) has been applied. KAMRYN CALLEJAS MD Jan 10, 2017 14:02
[2017-01-10 15:00] VITALS: BP 102/74
--- NOTE | 2017-01-10 15:54 | PDOC3 ---
Discharge Summary [facility] Date of Admission: Jan 07, 2017 Discharge Date: Jan 10, 2017 Admitting Diagnosis abd pain 2/2 gastroparesis likely DM2, RECent hba1c 7.1 morbid obesity 34.5 BMI depression OA htn hypothyroidism 0.6cm high density on Head CT rt parietal lob multiple abd sx history new diarrhea, not POA Problems: Final Diagnosis CONSULTS GI Brief Hospital Course Patient is a 71 year old female with gastroparesis came to ER last night for abd pain and N/V for a few days. Pt was just DCEd here 12ds ago for same reason, was found gastroparesis. Supposed to to ty but pt told me she took reglan, and as per GI , reglan supposed to be dced since she has tremors. Pt said 5ds after dc, she started to have midle abd pain again, intermittent, took reglan , not helpful. N/V for 2 days, with some diarrhea too. she lives alone, daughter helps sometime. has some psych issues likely, on high dose valium tid. ABD CT not significant except diverticulosis. pt pain is better with erythromycin. cannot take reglan given side effects as tremors. dc home with erythromycin qid. dc time 35min General: Alert, Oriented X3, Cooperative Heart: Regular rate, Normal S1, Normal S2 Lungs: Clear Abdomen: Normal bowel sounds, Soft, Other ( abd mild tenderness) Extremities: No clubbing, No cyanosis Skin: No rashes Patient History: FHx: hypertension 33 FATHER 32 MOTHER Patient's father is 33 FATHER Patient's mother is 32 MOTHER Unknown G8 BROTHER G8 BROTHER G8 BROTHER G8 BROTHER G8 SISTER Problems: Disposition home CONDITION AT DISCHARGE: Improved Diet gi soft Scheduled Amitriptyline Hcl (Amitriptyline Hcl), 50 MG PO DAILY Amlodipine Besylate (Amlodipine Besylate), 10 MG PO BID, (Reported) Erythromycin Base (Erythromycin), 250 MG PO QIDACHS Glimepiride (Glimepiride), 4 MG PO DAILY, (Reported) Pantoprazole Sodium (Pantoprazole Sodium), 40 MG PO BIDAC Spironolactone (Spironolactone), 50 MG PO DAILY, (Reported) Sucralfate (Carafate), 1 GM PO QIDACHS [Potassium], 20 MEQ PO DAILY, (Reported) Scheduled PRN Diazepam (Diazepam), 10 MG PO PRN Q8HRS PRN for ANXIETY / AGITATION Hydrocodone Bit/Acetaminophen (Hydrocodone-Apap 7.5-325/15 Soln ), 10 ML PO PRN Q6HRS PRN for PAIN Zolpidem Tartrate (Zolpidem Tartrate), 10 MG PO PRN QHS PRN for INSOMNIA Discontinued Medications Celecoxib (Celecoxib), 200 MG PO DAILY, (Reported) Follow Up gi in 2 weeks ROSANA MELENDEZ MD Jan 10, 2017 15:54
[2017-02-08] MEDS ORDERED: LEVO75TA PO (13:06)
[2017-02-08] MEDS ORDERED: MECL25TA3 PO (13:06)
== END 2017-01-10 17:56 | disposition home or self-care (01) | DRG 74 ==
LOC: ER 20:46 → 5 NORTH 22:48
PROVIDERS: ADMIT Internal Medicine Hematology & Oncology; ATTEND Internal Medicine Hematology & Oncology
DX: E11.43 Type 2 diabetes mellitus with diabetic autonomic (poly)neuropathy (principal); E66.01 Morbid (severe) obesity due to excess calories; K31.84 Gastroparesis; Z68.34 Body mass index [BMI] 34.0-34.9, adult; E03.9 Hypothyroidism, unspecified; E78.5 Hyperlipidemia, unspecified; F32.9 Major depressive disorder, single episode, unspecified; I10 Essential (primary) hypertension; K21.9 Gastro-esophageal reflux disease without esophagitis; F41.9 Anxiety disorder, unspecified; M19.90 Unspecified osteoarthritis, unspecified site; G47.00 Insomnia, unspecified; Z96.659 Presence of unspecified artificial knee joint; K57.90 Diverticulosis of intestine, part unspecified, without perforation or abscess without bleeding; Z82.49 Family history of ischemic heart disease and other diseases of the circulatory system; Z83.3 Family history of diabetes mellitus; Z86.711 Personal history of pulmonary embolism; Z90.49 Acquired absence of other specified parts of digestive tract; Z90.710 Acquired absence of both cervix and uterus; Z98.42 Cataract extraction status, left eye; Z98.41 Cataract extraction status, right eye; Z79.4 Long term (current) use of insulin; Z88.8 Allergy status to other drugs, medicaments and biological substances
CPT/HCPCS: 36415; 70450; 70553; 74176; 80048; 80053; 81001; 82962; 83690; 85025; 87086; 93005; 96374; 96375; A9585; J1170; J1364; J1650; J1815; J2270; J2405; J2765; J7030; 97530; 97535; 99285-25

== ENCOUNTER 2017-05-25 01:26 | Inpatient (IN) | payer MEDICARE ==
[2017-05-25] MEDS: IV NORMAL SALINE 1000ML BAG 1,000 ML IV ×5 (02:00→19:35)
[2017-05-25 02:41] LABS: ANION GAP 14 (6-14); BLOOD UREA NITROGEN 19 mg/dL (7-20); BUN/CREATININE RATIO 12 (6-20); CALCIUM 9.2 mg/dL (8.5-10.1); CARBON DIOXIDE 26 mmol/L (21-32); CHLORIDE 100 mmol/L (98-107); CREATININE 1.6 mg/dL (0.6-1.0); GFR 38.7; GLUCOSE 429 mg/dL (70-99); POTASSIUM 3.3 mmol/L (3.5-5.1); SODIUM 140 mmol/L (136-145)
[2017-05-25 02:47] LABS: ALBUMIN 2.4 g/dL (3.4-5.0); ALBUMIN/GLOBULIN RATIO 0.5 (1.0-1.7); ALK PHOS 121 U/L (46-116); ALT (SGPT) 11 U/L (14-59); AST (SGOT) 25 U/L (15-37); TOTAL BILIRUBIN 0.8 mg/dL (0.2-1.0)
[2017-05-25 02:53] LABS: ADD MAN DIFF? NO
[2017-05-25 03:02] LABS: BASO % 0 % (0-3); EOS % 0 % (0-3); HEMATOCRIT 27.2 % (36.0-47.0); LYMPH # 1.2 x10^3/uL (1.0-4.8); LYMPH % 10 % (24-48); MEAN CORPUSCULAR HEMOGLOBIN 27 pg (25-35); MEAN CORPUSCULAR HGB CONC 33 g/dL (31-37); MEAN CORPUSCULAR VOLUME 81 fL (79-100); MONO # 1.3 x10^3/uL (0.0-1.1); MONO % 10 % (0-9); NEUT # 10.1 x10^3uL (1.8-7.7); NEUT % 80 % (31-73); PLATELET COUNT 194 x10^3/uL (140-400); RED BLOOD COUNT 3.35 x10^6/uL (3.50-5.40); RED CELL DISTRIBUTION WIDTH 18.6 % (11.5-14.5); WHITE BLOOD COUNT 12.7 x10^3/uL (4.0-11.0)
[2017-05-25 03:19] LABS: LACTIC ACID 2.3 mmol/L (0.4-2.0)
[2017-05-25] MEDS: PIPERACILLIN/TAZOBACTAM 3.375 GM in IV NORMAL SALINE 100ML 100 ML IV (03:35)
[2017-05-25] MEDS ORDERED: PIP/TAZO PER PHARMACY MC (03:45)
[2017-05-25] MEDS ORDERED: ONDANSETRON PF 4 MG/2 ML VIAL. IV ×2 (03:45→10:45)
[2017-05-25] MEDS: fentaNYL PF VIAL 100 MCG/2 ML VIAL IV (04:06)
[2017-05-25] MEDS: MORPHINE SULFATE 4 MG/ML DISP.SYRIN. IV ×5 (05:21→20:11)
[2017-05-25] MEDS: POTASSIUM CHLORIDE 20 MEQ TABLET.ER. PO (09:20)
[2017-05-25] MEDS: diazePAM 5 MG TABLET PO (09:21)
[2017-05-25] MEDS: amLODIPine BESYLATE 10 MG TABLET PO (09:21)
[2017-05-25] MEDS: PANTOPRAZOLE 40 MG TABLET.DR. PO (09:22)
[2017-05-25] MEDS: LEVOTHYROXINE 150 MCG TABLET PO (09:22)
[2017-05-25] MEDS: LOSARTAN POTASSIUM 50 MG TABLET. PO (09:22)
[2017-05-25] MEDS: INSULIN ASPART 300 UNITS/3 ML INSULN.PEN SQ ×3 (09:37→17:30)
[2017-05-25 09:45] LABS: POC GLUCOSE 419 mg/dL (70-99)
[2017-05-25] MEDS ORDERED: DOCUSATE SODIUM 100 MG CAPSULE. PO (10:45)
[2017-05-25] MEDS ORDERED: hydrALAZINE 20 MG/ML VIAL. IVP (10:45)
[2017-05-25] MEDS ORDERED: MORPHINE SULFATE 4 MG/ML DISP.SYRIN. IV (10:45)
[2017-05-25] MEDS ORDERED: VANCOMYCIN 2 GM in IV DEXTROSE 5% 500 ML IV (10:45)
[2017-05-25 11:34] LABS: POC GLUCOSE 262 mg/dL (70-99)
[2017-05-25] MEDS: PIPERACILLIN/TAZOBACTAM 2.25 GM in IV NORMAL SALINE 50ML 50 ML IV ×3 (11:59→23:05)
[2017-05-25] MEDS: VANCOMYCIN 2 GM in IV DEXTROSE 5 %-0.45 % NACL 500 ML IV (12:02)
[2017-05-25] MEDS: VANCOMYCIN PER PHARMACY MC (12:48)
[2017-05-25] MEDS ORDERED: DEXTROSE 50% 25 GM / 50ML DISP.SYRIN. IV (13:30)
[2017-05-25 17:16] LABS: POC GLUCOSE 108 mg/dL (70-99)
[2017-05-25 20:22] LABS: POC GLUCOSE 164 mg/dL (70-99)
[2017-05-25] MEDS: ZOLPIDEM 5 MG TABLET. PO (20:30)
[2017-05-25] MEDS: INSULIN DETEMIR 300 UNITS/3 ML INSULN.PEN. SQ (20:30)
[2017-05-26] MEDS: MORPHINE SULFATE 4 MG/ML DISP.SYRIN. IV ×4 (04:50→21:57)
[2017-05-26] MEDS: PIPERACILLIN/TAZOBACTAM 2.25 GM in IV NORMAL SALINE 50ML 50 ML IV ×4 (05:00→23:02)
[2017-05-26 05:56] LABS: ADD MAN DIFF? NO
[2017-05-26 06:01] LABS: BASO % 1 % (0-3); EOS # 0.2 x10^3/uL (0.0-0.7); EOS % 3 % (0-3); HEMATOCRIT 27.3 % (36.0-47.0); LYMPH # 1.5 x10^3/uL (1.0-4.8); LYMPH % 23 % (24-48); MEAN CORPUSCULAR HEMOGLOBIN 27 pg (25-35); MEAN CORPUSCULAR HGB CONC 33 g/dL (31-37); MEAN CORPUSCULAR VOLUME 82 fL (79-100); MONO # 0.7 x10^3/uL (0.0-1.1); MONO % 10 % (0-9); NEUT # 4.1 x10^3uL (1.8-7.7); NEUT % 63 % (31-73); PLATELET COUNT 225 x10^3/uL (140-400); RED BLOOD COUNT 3.33 x10^6/uL (3.50-5.40); WHITE BLOOD COUNT 6.6 x10^3/uL (4.0-11.0)
[2017-05-26] MEDS: LEVOTHYROXINE 150 MCG TABLET PO (06:08)
[2017-05-26 06:25] LABS: ANION GAP 12 (6-14); BLOOD UREA NITROGEN 14 mg/dL (7-20); CALCIUM 8.4 mg/dL (8.5-10.1); CARBON DIOXIDE 23 mmol/L (21-32); CHLORIDE 109 mmol/L (98-107); CREATININE 1.5 mg/dL (0.6-1.0); GFR 41.7; GLUCOSE 118 mg/dL (70-99); SODIUM 144 mmol/L (136-145)
[2017-05-26 07:22] LABS: POC GLUCOSE 113 mg/dL (70-99)
[2017-05-26] MEDS: INSULIN ASPART 300 UNITS/3 ML INSULN.PEN SQ ×6 (07:30→17:35)
[2017-05-26] MEDS: PANTOPRAZOLE 40 MG TABLET.DR. PO (07:51)
[2017-05-26] MEDS: POTASSIUM CHLORIDE 20 MEQ TABLET.ER. PO ×2 (07:51→16:50)
[2017-05-26] MEDS: traMADol 50 MG TABLET PO ×2 (07:51→16:51)
[2017-05-26] MEDS: diazePAM 5 MG TABLET PO (07:52)
[2017-05-26] MEDS: LOSARTAN POTASSIUM 50 MG TABLET. PO (07:52)
[2017-05-26] MEDS: amLODIPine BESYLATE 10 MG TABLET PO (07:52)
[2017-05-26 09:51] LABS: LACTIC ACID 2.3 mmol/L (0.4-2.0)
[2017-05-26 11:17] LABS: POC GLUCOSE 132 mg/dL (70-99)
[2017-05-26] MEDS: FLUCONAZOLE 100 MG TABLET. PO (11:38)
[2017-05-26] MEDS: VANCOMYCIN 1.25 GM in IV DEXTROSE 5 %-0.2 % NACL 250 ML IV (12:00)
[2017-05-26 13:38] LABS: LACTIC ACID 1.7 mmol/L (0.4-2.0)
[2017-05-26 16:37] LABS: POC GLUCOSE 219 mg/dL (70-99)
[2017-05-26] MEDS: VANCOMYCIN PER PHARMACY MC (17:17)
[2017-05-26] MEDS: NYSTATIN TOPICAL POWDER 15GM BOTTLE. TP (20:43)
[2017-05-26] MEDS: LACTOBACILLUS RHAMNOSUS GG 1 CAPSULE. PO (20:43)
[2017-05-26] MEDS: INSULIN DETEMIR 300 UNITS/3 ML INSULN.PEN. SQ (20:53)
[2017-05-26] MEDS: ZOLPIDEM 5 MG TABLET. PO (20:55)
[2017-05-26 20:58] LABS: POC GLUCOSE 182 mg/dL (70-99)
[2017-05-26 21:19] LABS: POC GLUCOSE 203 mg/dL (70-99)
[2017-05-27] MEDS: MORPHINE SULFATE 4 MG/ML DISP.SYRIN. IV ×6 (03:33→23:30)
[2017-05-27] MEDS: PIPERACILLIN/TAZOBACTAM 2.25 GM in IV NORMAL SALINE 50ML 50 ML IV ×2 (06:24→12:15)
[2017-05-27] MEDS: LEVOTHYROXINE 150 MCG TABLET PO (06:25)
[2017-05-27 07:26] LABS: POC GLUCOSE 102 mg/dL (70-99)
[2017-05-27] MEDS: INSULIN ASPART 300 UNITS/3 ML INSULN.PEN SQ ×6 (07:30→18:18)
[2017-05-27] MEDS: POTASSIUM CHLORIDE 20 MEQ TABLET.ER. PO (08:25)
[2017-05-27] MEDS: amLODIPine BESYLATE 10 MG TABLET PO ×2 (08:26→12:16)
[2017-05-27] MEDS: LOSARTAN POTASSIUM 50 MG TABLET. PO ×2 (08:27→12:16)
[2017-05-27] MEDS: LACTOBACILLUS RHAMNOSUS GG 1 CAPSULE. PO ×2 (08:27→20:18)
[2017-05-27] MEDS: PANTOPRAZOLE 40 MG TABLET.DR. PO (08:27)
[2017-05-27] MEDS: FLUCONAZOLE 100 MG TABLET. PO (08:27)
[2017-05-27] MEDS: diazePAM 5 MG TABLET PO (08:27)
[2017-05-27] MEDS: NYSTATIN TOPICAL POWDER 15GM BOTTLE. TP ×2 (08:30→20:29)
[2017-05-27] MEDS: traMADol 50 MG TABLET PO (08:36)
[2017-05-27 09:37] LABS: ANION GAP 14 (6-14); BLOOD UREA NITROGEN 6 mg/dL (7-20); CALCIUM 8.3 mg/dL (8.5-10.1); CARBON DIOXIDE 23 mmol/L (21-32); CHLORIDE 109 mmol/L (98-107); CREATININE 1.1 mg/dL (0.6-1.0); GFR 59.6; GLUCOSE 129 mg/dL (70-99); POTASSIUM 3.1 mmol/L (3.5-5.1); SODIUM 146 mmol/L (136-145)
[2017-05-27 11:52] LABS: POC GLUCOSE 145 mg/dL (70-99)
[2017-05-27 15:25] LABS: VANC TR 11.3 mcg/mL (10.0-20.0)
[2017-05-27] MEDS: VANCOMYCIN 1.25 GM in IV DEXTROSE 5 %-0.2 % NACL 250 ML IV (15:49)
[2017-05-27] MEDS: VANCOMYCIN PER PHARMACY MC (15:55)
[2017-05-27 17:02] LABS: POC GLUCOSE 185 mg/dL (70-99)
[2017-05-27] MEDS: PIPERACILLIN/TAZOBACTAM 2.25 GM in IV NORMAL SALINE 100ML 100 ML IV ×2 (18:44→23:31)
[2017-05-27] MEDS: POTASSIUM CHLORIDE 10 MEQ TABLET.ER. PO (18:45)
[2017-05-27] MEDS: ZOLPIDEM 5 MG TABLET. PO (20:18)
[2017-05-27 21:24] LABS: POC GLUCOSE 167 mg/dL (70-99)
[2017-05-27] MEDS: INSULIN DETEMIR 300 UNITS/3 ML INSULN.PEN. SQ (21:56)
[2017-05-28] MEDS: ACETAMINOPHEN 325 MG TABLET. PO (03:41)
[2017-05-28 05:43] LABS: CREATININE 1.1 mg/dL (0.6-1.0)
[2017-05-28 05:43] LABS: GFR 59.6
[2017-05-28] MEDS: MORPHINE SULFATE 4 MG/ML DISP.SYRIN. IV ×5 (06:06→17:14)
[2017-05-28] MEDS: LEVOTHYROXINE 150 MCG TABLET PO (06:06)
[2017-05-28] MEDS: PIPERACILLIN/TAZOBACTAM 2.25 GM in IV NORMAL SALINE 100ML 100 ML IV ×2 (06:06→11:11)
[2017-05-28 07:24] LABS: POC GLUCOSE 139 mg/dL (70-99)
[2017-05-28] MEDS: INSULIN ASPART 300 UNITS/3 ML INSULN.PEN SQ ×6 (07:30→17:19)
[2017-05-28] MEDS: NYSTATIN TOPICAL POWDER 15GM BOTTLE. TP ×2 (08:42→20:26)
[2017-05-28] MEDS: PANTOPRAZOLE 40 MG TABLET.DR. PO (08:44)
[2017-05-28] MEDS: diazePAM 5 MG TABLET PO (08:44)
[2017-05-28] MEDS: LOSARTAN POTASSIUM 50 MG TABLET. PO (08:44)
[2017-05-28] MEDS: LACTOBACILLUS RHAMNOSUS GG 1 CAPSULE. PO ×2 (08:44→20:26)
[2017-05-28] MEDS: FLUCONAZOLE 100 MG TABLET. PO (08:44)
[2017-05-28] MEDS: POTASSIUM CHLORIDE 20 MEQ TABLET.ER. PO (08:44)
[2017-05-28] MEDS: amLODIPine BESYLATE 10 MG TABLET PO (08:45)
[2017-05-28 11:07] LABS: POC GLUCOSE 178 mg/dL (70-99)
[2017-05-28 13:07] LABS: POC GLUCOSE 113 mg/dL (70-99)
[2017-05-28] MEDS: VANCOMYCIN 1.25 GM in IV DEXTROSE 5 %-0.2 % NACL 250 ML IV (14:39)
[2017-05-28] MEDS: VANCOMYCIN PER PHARMACY MC (16:33)
[2017-05-28 16:59] LABS: POC GLUCOSE 131 mg/dL (70-99)
[2017-05-28] MEDS: PIPERACILLIN/TAZOBACTAM 3.375 GM in IV NORMAL SALINE 50ML 50 ML IV ×2 (17:12→23:46)
[2017-05-28] MEDS ORDERED: PIPERACILLIN/TAZOBACTAM 2.25 GM in IV NORMAL SALINE 50ML 50 ML IV (18:00)
[2017-05-28 21:17] LABS: POC GLUCOSE 110 mg/dL (70-99)
[2017-05-28] MEDS: INSULIN DETEMIR 300 UNITS/3 ML INSULN.PEN. SQ (21:46)
[2017-05-29] MEDS: PIPERACILLIN/TAZOBACTAM 3.375 GM in IV NORMAL SALINE 50ML 50 ML IV ×4 (05:58→23:05)
[2017-05-29 07:57] LABS: POC GLUCOSE 144 mg/dL (70-99)
[2017-05-29] MEDS: INSULIN ASPART 300 UNITS/3 ML INSULN.PEN SQ ×6 (08:00→17:10)
[2017-05-29] MEDS: LEVOTHYROXINE 150 MCG TABLET PO (08:42)
[2017-05-29] MEDS: FLUCONAZOLE 100 MG TABLET. PO (08:43)
[2017-05-29] MEDS: POTASSIUM CHLORIDE 20 MEQ TABLET.ER. PO (08:44)
[2017-05-29] MEDS: LACTOBACILLUS RHAMNOSUS GG 1 CAPSULE. PO ×2 (08:44→20:46)
[2017-05-29] MEDS: diazePAM 5 MG TABLET PO (08:44)
[2017-05-29] MEDS: LOSARTAN POTASSIUM 50 MG TABLET. PO (08:45)
[2017-05-29] MEDS: PANTOPRAZOLE 40 MG TABLET.DR. PO (08:46)
[2017-05-29] MEDS: amLODIPine BESYLATE 10 MG TABLET PO (08:46)
[2017-05-29] MEDS: MORPHINE SULFATE 4 MG/ML DISP.SYRIN. IV ×4 (08:49→18:44)
[2017-05-29] MEDS: NYSTATIN TOPICAL POWDER 15GM BOTTLE. TP ×2 (09:11→20:45)
[2017-05-29 11:40] LABS: POC GLUCOSE 112 mg/dL (70-99)
[2017-05-29] MEDS: VANCOMYCIN PER PHARMACY MC (13:58)
[2017-05-29 16:44] LABS: POC GLUCOSE 96 mg/dL (70-99)
[2017-05-29] MEDS: VANCOMYCIN 1.25 GM in IV DEXTROSE 5 %-0.2 % NACL 250 ML IV (17:06)
[2017-05-29] MEDS: ACETAMINOPHEN 325 MG TABLET. PO (18:43)
[2017-05-29] MEDS: INSULIN DETEMIR 300 UNITS/3 ML INSULN.PEN. SQ (20:54)
[2017-05-29 21:04] LABS: POC GLUCOSE 115 mg/dL (70-99)
[2017-05-29] MEDS: ZOLPIDEM 5 MG TABLET. PO (23:08)
[2017-05-30] MEDS: LEVOTHYROXINE 150 MCG TABLET PO (06:13)
[2017-05-30] MEDS: PIPERACILLIN/TAZOBACTAM 3.375 GM in IV NORMAL SALINE 50ML 50 ML IV (06:13)
[2017-05-30] MEDS: MORPHINE SULFATE 4 MG/ML DISP.SYRIN. IV ×4 (06:49→14:04)
[2017-05-30] MEDS: INSULIN ASPART 300 UNITS/3 ML INSULN.PEN SQ ×7 (07:27→17:55)
[2017-05-30 07:32] LABS: POC GLUCOSE 76 mg/dL (70-99)
[2017-05-30] MEDS: LACTOBACILLUS RHAMNOSUS GG 1 CAPSULE. PO ×2 (07:49→21:29)
[2017-05-30] MEDS: PANTOPRAZOLE 40 MG TABLET.DR. PO (07:50)
[2017-05-30] MEDS: FLUCONAZOLE 100 MG TABLET. PO (07:50)
[2017-05-30] MEDS: diazePAM 5 MG TABLET PO (07:50)
[2017-05-30] MEDS: amLODIPine BESYLATE 10 MG TABLET PO (08:18)
[2017-05-30] MEDS: LOSARTAN POTASSIUM 50 MG TABLET. PO (08:19)
[2017-05-30] MEDS: POTASSIUM CHLORIDE 20 MEQ TABLET.ER. PO (08:19)
[2017-05-30] MEDS: NYSTATIN TOPICAL POWDER 15GM BOTTLE. TP ×2 (09:00→21:30)
[2017-05-30 11:17] LABS: POC GLUCOSE 96 mg/dL (70-99)
[2017-05-30] MEDS: ACETAMINOPHEN 325 MG TABLET. PO (11:46)
[2017-05-30 16:16] LABS: POC GLUCOSE 75 mg/dL (70-99)
[2017-05-30] MEDS: traMADol 50 MG TABLET PO (17:46)
[2017-05-30 20:59] LABS: POC GLUCOSE 52 mg/dL (70-99)
[2017-05-30] MEDS: INSULIN DETEMIR 300 UNITS/3 ML INSULN.PEN. SQ (21:00)
[2017-05-30 21:12] LABS: POC GLUCOSE 83 mg/dL (70-99)
[2017-05-30] MEDS: AMOXICILLIN/K CLAV 875/125MG TABLET. PO (21:29)
[2017-05-30] MEDS: ZOLPIDEM 5 MG TABLET. PO (21:29)
[2017-05-30] MEDS: HYDROcodone/APAP 5/325MG 1 TAB TABLET PO (21:31)
[2017-05-31] MEDS: LEVOTHYROXINE 150 MCG TABLET PO (07:18)
[2017-05-31] MEDS: PANTOPRAZOLE 40 MG TABLET.DR. PO (07:18)
[2017-05-31] MEDS: HYDROcodone/APAP 5/325MG 1 TAB TABLET PO ×3 (07:19→15:12)
[2017-05-31 07:23] LABS: POC GLUCOSE 123 mg/dL (70-99)
[2017-05-31] MEDS: INSULIN ASPART 300 UNITS/3 ML INSULN.PEN SQ ×6 (08:00→17:00)
[2017-05-31] MEDS: NYSTATIN TOPICAL POWDER 15GM BOTTLE. TP (09:00)
[2017-05-31] MEDS: LOSARTAN POTASSIUM 50 MG TABLET. PO (09:13)
[2017-05-31] MEDS: amLODIPine BESYLATE 10 MG TABLET PO (09:13)
[2017-05-31] MEDS: LACTOBACILLUS RHAMNOSUS GG 1 CAPSULE. PO (09:13)
[2017-05-31] MEDS: AMOXICILLIN/K CLAV 875/125MG TABLET. PO (09:13)
[2017-05-31] MEDS: POTASSIUM CHLORIDE 20 MEQ TABLET.ER. PO (09:14)
[2017-05-31] MEDS: diazePAM 5 MG TABLET PO (09:14)
[2017-05-31] MEDS: FLUCONAZOLE 100 MG TABLET. PO (09:14)
[2017-05-31 11:07] LABS: POC GLUCOSE 117 mg/dL (70-99)
[2017-05-31 16:46] LABS: POC GLUCOSE 159 mg/dL (70-99)
== END 2017-05-31 17:05 | DRG 393 ==
LOC: ER 01:26 → 5 SOUTH 03:51
DX: K94.22 Gastrostomy infection (principal); A41.9 Sepsis, unspecified organism; E43 Unspecified severe protein-calorie malnutrition; N17.9 Acute kidney failure, unspecified; K31.84 Gastroparesis; E11.22 Type 2 diabetes mellitus with diabetic chronic kidney disease; E11.43 Type 2 diabetes mellitus with diabetic autonomic (poly)neuropathy; K94.12 Enterostomy infection; N18.3 Chronic kidney disease, stage 3 (moderate); B37.2 Candidiasis of skin and nail; L02.211 Cutaneous abscess of abdominal wall; L03.311 Cellulitis of abdominal wall; I12.9 Hypertensive chronic kidney disease with stage 1 through stage 4 chronic kidney disease, or unspecified chronic kidney disease; E89.0 Postprocedural hypothyroidism; E66.9 Obesity, unspecified; E78.5 Hyperlipidemia, unspecified; K21.9 Gastro-esophageal reflux disease without esophagitis; F32.9 Major depressive disorder, single episode, unspecified; H35.30 Unspecified macular degeneration; F41.9 Anxiety disorder, unspecified; G89.29 Other chronic pain; K57.90 Diverticulosis of intestine, part unspecified, without perforation or abscess without bleeding; M19.90 Unspecified osteoarthritis, unspecified site; E78.00 Pure hypercholesterolemia, unspecified; Z96.652 Presence of left artificial knee joint; Z90.710 Acquired absence of both cervix and uterus; Z83.3 Family history of diabetes mellitus; Z82.49 Family history of ischemic heart disease and other diseases of the circulatory system; Z86.711 Personal history of pulmonary embolism; Z90.49 Acquired absence of other specified parts of digestive tract; Z98.42 Cataract extraction status, left eye; Z98.41 Cataract extraction status, right eye; Z88.2 Allergy status to sulfonamides; Z88.8 Allergy status to other drugs, medicaments and biological substances; Z68.34 Body mass index [BMI] 34.0-34.9, adult
CPT/HCPCS: 36415; 74176; 80048; 80053; 80202; 82565; 82962; 83605; 85025; 87040; 87071; 87075; 87205; 96361; 96365; 97110-GP; 97116-GP; 97162-GP; 97166-GO; 97530-GO; 97530-GP; 97535-GO; 99285; 99285-25; J1815; J2270; J2543; J3010; J3370; J7030

== ENCOUNTER 2017-11-27 10:18 | Inpatient (IN) | payer MEDICARE ==
[~2017-11-27] VITALS: Ht 167.6 cm; Wt 90.7 kg
[~2017-11-27 10:18] MED LIST changes: -AMLO10TA2 PO; +AMLO10TA6 PO; +AMOX1TAB11 PO; +DIAZEPAM10 MG PO; +DOCU100C28 PO; +HYDR-971 PO; +IBUP-1060 PO; +INSU100I17 SQ; +INSU100I27 SQ; +IRON1TAB2 PO; +LEVO100T5 PO; +LEVO150T5 PO; +LEVO75TA PO; -LOSA100T6 PO; +LOSA100T7 PO; +LOSA1TAB25 PO; +MECL25TA3 PO; +METF10007 PO; +METO-247 PO; +OMEP40CA5 PO; +PANT20TA2 PO; +POTA20TA82 PO; +SIMV20TA3 PO; -SPIR50TA2 PO; +SPIR50TA4 PO; +SUCR1TAB PO; +TAMS0.4C97 PO; +TRAZ-85 PO; +ZOLP5TAB PO
--- NOTE | 2017-11-27 11:45 | EKG ---
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
[2017-11-27 11:49] LABS: BASO # 0.1 x10^3/uL (0.0-0.2); BASO % 1 % (0-3); EOS # 0.1 x10^3/uL (0.0-0.7); EOS % 2 % (0-3); HEMATOCRIT 37.7 % (36.0-47.0); HEMOGLOBIN 12.4 g/dL (12.0-15.5); LYMPH # 2.1 x10^3/uL (1.0-4.8); LYMPH % 27 % (24-48); MEAN CORPUSCULAR HEMOGLOBIN 27 pg (25-35); MEAN CORPUSCULAR HGB CONC 33 g/dL (31-37); MEAN CORPUSCULAR VOLUME 81 fL (79-100); MONO # 0.5 x10^3/uL (0.0-1.1); MONO % 6 % (0-9); NEUT # 4.9 x10^3uL (1.8-7.7); NEUT % 64 % (31-73); PLATELET COUNT 211 x10^3/uL (140-400); RED BLOOD COUNT 4.66 x10^6/uL (3.50-5.40); RED CELL DISTRIBUTION WIDTH 22.1 % (11.5-14.5); WHITE BLOOD COUNT 7.7 x10^3/uL (4.0-11.0)
[2017-11-27 12:09] LABS: PROTHROMBIN TIME PATIENT 12.3 SEC (11.7-14.0)
[2017-11-27 12:10] LABS: CALCIUM 10.5 mg/dL (8.5-10.1); CREATININE 1.4 mg/dL (0.6-1.0); POTASSIUM 4.4 mmol/L (3.5-5.1)
[2017-11-27 12:13] LABS: ALBUMIN/GLOBULIN RATIO 0.9 (1.0-1.7); TOTAL BILIRUBIN 0.3 mg/dL (0.2-1.0); TOTAL PROTEIN 8.6 g/dL (6.4-8.2)
--- NOTE | 2017-11-27 12:13 | RAD ---
CT HEAD WO CONTRAST History: Right-sided weakness, slurred speech Comparison: October 13, 2017 Technique: Noncontrast CT imaging was performed of the head. Exposure: One or more of the following individualized dose reduction techniques were utilized for this examination: 1. Automated exposure control 2. Adjustment of the mA and/or kV according to patient size 3. Use of iterative reconstruction technique. Findings: No acute extra-axial or parenchymal hemorrhage is identified. There is no significant intra-axial mass effect, midline shift, or extra-axial fluid collection. The santos-white differentiation of the major vascular territories is preserved. The ventricles, sulci, and cisterns are within normal limits in size and configuration. The mastoid air cells and the visualized paranasal sinuses are aerated. No acute calvarial abnormality is identified. Impression: 1. No acute intracranial abnormality is identified. If there is concern for evolving or acute ischemia, followup CT or MRI could be beneficial. Electronically signed by: Baldemar Macias MD (11/27/2017 12:09 PM) [id number]
[2017-11-27 13:19] LABS: ANISOCYTOSIS SLIGHT; PLT ESTIMATE ADEQUATE (ADEQUATE); POIKILOCYTOSIS PRESENT
[2017-11-27 13:20] LABS: OVALOCYTES PRESENT; TARGET CELLS PRESENT
[2017-11-27 13:24] LABS: BILIRUBIN,URINE NEGATIVE (NEG); CLARITY,URINE CLEAR; COLOR,URINE YELLOW; NITRITE,URINE POSITIVE (NEG); PH,URINE 5.5; PROTEIN,URINE NEGATIVE (NEG-TRACE); UROBILINOGEN,URINE 0.2 mg/dL (0.2 mg/dL)
--- NOTE | 2017-11-27 13:28 | PHYS DOC ---
Past Medical History Past Medical History: Diabetes-Type II, GERD, High Cholesterol, Hypertension, Hypothyroid, Other Additional Past Medical Histor: Hernia Past Surgical History: Cholecystectomy, Hysterectomy, Knee Replacement, Other Additional Past Surgical Histo: EGD,Cataract removed BILAT EYES, GTUBE PLACEMENT AND D/C Alcohol Use: None Drug Use: None Adult General Chief Complaint Chief Complaint: NEURO SYMPTOMS/DEFICITS [facility] HPI Patient is a 72 year old female presenting with right-sided weakness and slurred speech since Friday this is 2 days old at least. She says this happened earlier in September but it was on the left side and admission revealed a normal MRI and she was discharged home however it has recurred. No recent fever no chest pain no shortness of breath she is on several medicines she does not know all the names at this time but she says she is compliant. She also has a mild headache no fever no dysuria no vomiting symptoms are moderate they're stable there really not changing since onset Review of Systems Review of Systems Constitutional: Denies fever or chills [] Eyes: Denies change in visual acuity, redness, or eye pain []status post cataract surgery HENT: Denies nasal congestion or sore throat [] Respiratory: Denies cough or shortness of breath [] Cardiovascular: No additional information not addressed in HPI [] GI: Denies abdominal pain, nausea, vomiting, bloody stools or diarrhea [] : Denies dysuria or hematuria [] Musculoskeletal: Denies back pain or joint pain [] Integument: Denies rash or skin lesions [] All other systems were reviewed and found to be within normal limits, except as documented in this note. Allergies Allergies Allergies Coded Allergies Type Severity Reaction Last Updated Verified Sulfa (Sulfonamide Antibiotics) Allergy Intermediate 12/22/16 Yes prochlorperazine Adverse Reaction Intermediate DIZZY 04/08/17 Yes Physical Exam Physical Exam Constitutional: Well developed, well nourished, no acute distress, non-toxic appearance. [] HENT: Normocephalic, atraumatic, bilateral external ears normal, oropharynx moist, no oral exudates, nose normal. [] Eyes: PERRLA, EOMI, conjunctiva normal, no discharge. [] Neck: Normal range of motion, no tenderness, supple, no stridor. [] Cardiovascular:Heart rate regular rhythm, no murmur [] Lungs & Thorax: Bilateral breath sounds clear to auscultation [] Abdomen: Bowel sounds normal, soft, no tenderness, no masses, no pulsatile masses. [] Skin: Warm, dry, no erythema, no rash. [] Back: No tenderness, no CVA tenderness. [] Extremities: No tenderness, no cyanosis, no clubbing, ROM intact, no edema. [] Neurologic: ] nihss 1a loc 1b ak month and age 1c blink eyes and squeeze hands 2 eom 3 vf 4 facial palsy 5 left arm motor drift 5b right arm motor drift 1 6a left leg motor drift 6b right leg motor drift 1 7 limb ataxia 8 sensation 1 9 language 10 dysarthria 1 11 extinction/inattention Total score B of 4 for decreased sensation on the right arm and right leg as well as subtle drift on the right arm and the right leg r and possible mild slurred speech Face is symmetric extraocular movements are intact patient is awake and alert left side is normal no aphasia Psychologic: Affect normal, judgement normal, mood normal. [] Current Patient Data Vital Signs Vital Signs Date Time Temp Pulse Resp B/P (MAP) Pulse Ox O2 Delivery O2 Flow Rate FiO2 11/27/17 11:51 72 20 96 11/27/17 10:27 98.3 121/77 (92) Room Air 98.3 Lab Values Laboratory Tests Test 11/27/17 10:28 11/27/17 11:30 Glucose (Fingerstick) 266 mg/dL (70-99) H White Blood Count 7.7 x10^3/uL (4.0-11.0) Red Blood Count 4.66 x10^6/uL (3.50-5.40) Hemoglobin 12.4 g/dL (12.0-15.5) Hematocrit 37.7 % (36.0-47.0) Mean Corpuscular Volume 81 fL (79-100) Mean Corpuscular Hemoglobin 27 pg (25-35) Mean Corpuscular Hemoglobin Concent 33 g/dL (31-37) Red Cell Distribution Width 22.1 % (11.5-14.5) H Platelet Count 211 x10^3/uL (140-400) Neutrophils (%) (Auto) 64 % (31-73) Lymphocytes (%) (Auto) 27 % (24-48) Monocytes (%) (Auto) 6 % (0-9) Eosinophils (%) (Auto) 2 % (0-3) Basophils (%) (Auto) 1 % (0-3) Neutrophils # (Auto) 4.9 x10^3uL (1.8-7.7) Lymphocytes # (Auto) 2.1 x10^3/uL (1.0-4.8) Monocytes # (Auto) 0.5 x10^3/uL (0.0-1.1) Eosinophils # (Auto) 0.1 x10^3/uL (0.0-0.7) Basophils # (Auto) 0.1 x10^3/uL (0.0-0.2) Platelet Estimate Adequate (ADEQUATE) Large Platelets Few Poikilocytosis Present Anisocytosis Slight Target Cells Present Ovalocytes Present Prothrombin Time 12.3 SEC (11.7-14.0) Prothrombin Time INR 1.0 (0.8-1.1) Sodium Level 136 mmol/L (136-145) Potassium Level 4.4 mmol/L (3.5-5.1) Chloride Level 99 mmol/L (98-107) Carbon Dioxide Level 24 mmol/L (21-32) Anion Gap 13 (6-14) Blood Urea Nitrogen 25 mg/dL (7-20) H Creatinine 1.4 mg/dL (0.6-1.0) H Estimated GFR (Cockcroft-Gault) 45.0 BUN/Creatinine Ratio 18 (6-20) Glucose Level 262 mg/dL (70-99) H Calcium Level 10.5 mg/dL (8.5-10.1) H Total Bilirubin 0.3 mg/dL (0.2-1.0) Aspartate Amino Transferase (AST) 19 U/L (15-37) Alanine Aminotransferase (ALT) 17 U/L (14-59) Alkaline Phosphatase 70 U/L (46-116) Troponin I Quantitative < 0.017 ng/mL (0.000-0.055) Total Protein 8.6 g/dL (6.4-8.2) H Albumin 4.0 g/dL (3.4-5.0) Albumin/Globulin Ratio 0.9 (1.0-1.7) L Ethyl Alcohol Level < 10 mg/dL (0-10) Laboratory Tests 11/27/17 11:30 Laboratory Tests 11/27/17 11:30 EKG EKG [] Interpretation Time: EKG shows a normal sinus rhythm at a rate of 72 there are T-wave inversions noted that his similar to 10/13/2017 no STEMI no obvious other acute ischemic changes. Radiology/Procedures Radiology/Procedures [] Impressions: Impression: 1. No acute intracranial abnormality is identified. If there is concern for evolving or acute ischemia, followup CT or MRI could be beneficial. Electronically signed by: Baldemar Macias MD (11/27/2017 12:09 PM) [id number] Course & Med Decision Making Course & Med Decision Making Pertinent Labs and Imaging studies reviewed. (See chart for details) []72-year-old female multiple medical problems presenting with 2 days of right- sided weakness and some mild slurred speech somewhat mild findings on examination however they appear to be present differential included CVA. CT head did not show any obvious but given her clinical symptoms will be admitted for observation and MRI. Patient is agreeable to the plan Dragon Disclaimer Dragon Disclaimer This electronic medical record was generated, in whole or in part, using a voice recognition dictation system. Departure Departure Impression: Primary Impression: Right sided weakness Disposition: ADMITTED INPATIENT Admitting Physician: Xie. Craig Condition: STABLE Referrals: TONY HARE MD (PCP) KELLIE CALERO MD Nov 27, 2017 13:28
[2017-11-27 13:31] LABS: BARBITURATES NEG (NEG); BENZODIAZEPINES POS (NEG); CANNABINOIDS NEG (NEG); COCAINE NEG (NEG); METHADONE NEG (NEG); OPIATES POS (NEG); PHENCYCLIDINE NEG (NEG)
[2017-11-27 13:32] LABS: AMPHETAMINE/METHAMPHETAMINE NEG (NEG)
[2017-11-27 13:46] LABS: RBC,URINE 0 /HPF (0-2)
[2017-11-27 13:47] LABS: BACTERIA,URINE MANY /HPF (0-FEW); HYALINE CASTS, URINE FEW /HPF; SQUAMOUS EPITHELIAL CELL,UR MOD /LPF; WBC,URINE 20-40 /HPF (0-4)
[2017-11-27 14:33] VITALS: BP 106/59
[2017-11-27] MEDS ORDERED: INSU100I17 SQ (15:08)
[2017-11-27] MEDS ORDERED: DEXTROSE 50% 25 GM / 50ML DISP.SYRIN. IV PRN (15:30)
--- NOTE | 2017-11-27 16:04 | PDOC1 ---
History and Physical Date of Admission Date of Admission 11/27/17 Identification/Chief Complaint Chief Complaint rt side weakness Source Source: Chart review, Patient History of Present Illness History of Present Illness HPI Patient is a 72 year old female presenting with right-sided weakness and slurred speech since Friday. pt was here 1 month ago for similar presention with left side weakness, neg MRI. pt lives with her daughter now. She said she started to feel rt side weakness 2 days ago, and her daughter said she was confused this am when trying to get orange juice from the refrigerattor. Pt actually has rt knee pain, now cannot walk 2/2 pain. no fever, chills, headache. She said her daughter noticed she had slurry speech this am, resolved now. head CT neg. Past Medical History Cardiovascular: HTN Pulmonary: Pulmonary embolus, Other Psych: Anxiety Endocrine: Diabetes, Hypothyroidism Past Surgical History Past Surgical History: Cholecystectomy, Total knee replacement, Hysterectomy Family History Family History: Coronary Artery Disease, Diabetes, Hypertension Social History Smoke: No ALCOHOL: none Drugs: None Current Problem List Problem List Problems Medical Problems: (1) Right sided weakness Status: Acute Current Medications Current Medications Current Medications Medications (Trade) Dose Ordered Sig/Alo Start Time Stop Time Status Last Admin Dose Admin Acetaminophen/ Hydrocodone Bitart (Lortab 5/325) 1 tab PRN BID PRN 11/27/17 15:30 Amitriptyline HCl (Elavil) 50 mg QHS 11/27/17 21:00 Amlodipine Besylate (Norvasc) 10 mg BID 11/27/17 21:00 Dextrose (Dextrose 50%-Water Syringe) 12.5 gm PRN Q15MIN PRN 11/27/17 15:30 Docusate Sodium (Colace) 100 mg DAILY 11/28/17 09:00 Hydrochlorothiazide (Microzide) 12.5 mg DAILY 11/28/17 09:00 Influenza Virus Vaccine (Afluria Trivalent [id number] Syringe) 0.5 ml ONCE ONCE 11/27/17 17:00 11/27/17 17:01 Insulin Glargine (Lantus) 20 units QHS 11/27/17 21:00 Insulin Human Lispro (HumaLOG) 0-9 UNITS TIDWMEALS 11/27/17 17:00 Levothyroxine Sodium (Synthroid) 100 mcg DAILY05 11/28/17 05:00 Losartan Potassium (Cozaar) 100 mg DAILY 11/28/17 09:00 Metformin HCl (Glucophage) 1,000 mg BIDWMEALS 11/27/17 17:00 Metoclopramide HCl (Reglan) 10 mg PRN TID PRN 11/27/17 15:30 Metoprolol Succinate (Toprol Xl) 100 mg DAILY 11/28/17 09:00 Non-Formulary Medication (Iron, Carb & Gluc/Fa/B12/C/Dss (Ferralet 90 Dual-Iron Tablet)) 1 tab DAILY 11/28/17 09:00 UNV Non-Formulary Medication (Omeprazole ) 1 cap DAILY06 11/28/17 06:00 11/28/17 06:00 DC Pantoprazole Sodium (Protonix) 40 mg DAILYAC 11/28/17 07:30 Potassium Chloride (Klor-Con) 20 meq DAILYWBKFT 11/28/17 08:00 Simvastatin (Zocor) 20 mg HS 11/27/17 21:00 Spironolactone (Aldactone) 50 mg DAILY 11/28/17 09:00 Sucralfate (Carafate) 1 gm QIDACHS 11/27/17 16:30 Trazodone HCl (Desyrel) 50 mg DAILY 11/28/17 09:00 Zolpidem Tartrate (Ambien) 5 mg PRN QHS PRN 11/27/17 15:30 Allergies Allergies Allergies Coded Allergies Type Severity Reaction Last Updated Verified Sulfa (Sulfonamide Antibiotics) Allergy Intermediate 12/22/16 Yes prochlorperazine Adverse Reaction Intermediate DIZZY 04/08/17 Yes ROS Review of System CONSTITUTIONAL: No fever or chills EYES: No recent changes SKIN: No rash or itching CARDIOVASCULAR: No chest pain, syncope, palpitations, or edema RESPIRATORY: No SOB or cough GASTROINTESTINAL: No nausea, vomiting or abdominal pain NEUROLOGICAL: No headaches or weakness ENDOCRINE: No cold or heat intolerance GENITOURINARY: No urgency or frequency of urination MUSCULOSKELETAL: No back pain or joint pain LYMPHATICS: No enlarged lymph nodes PSYCHIATRIC: No anxiety or depression Physical Exam Physical Exam GEN.: No apparent distress. Alert and oriented. HEENT: Head is normocephalic, atraumatic NECK: Supple. LUNGS: Clear to auscultation. HEART: RRR, S1, S2 present. Peripheral pulses intact ABDOMEN: Soft, nontender. Positive bowel sounds. EXTREMITIES: Without any cyanosis. bl hands strength symmetric 4/5. left leg strength 4/5, rt side not moving much with rt knee pain. NEUROLOGIC: Normal speech, normal tone. PSYCHIATRIC: Normal affect, normal mood. SKIN: No ulcerations Vitals Vitals Vital Signs Date Time Temp Pulse Resp B/P (MAP) Pulse Ox O2 Delivery O2 Flow Rate FiO2 11/27/17 14:39 Room Air 11/27/17 14:33 97.5 72 18 106/59 (75) 98 97.5 Labs Labs Laboratory Tests Test 11/27/17 10:28 11/27/17 11:30 11/27/17 13:15 Glucose (Fingerstick) 266 mg/dL (70-99) White Blood Count 7.7 x10^3/uL (4.0-11.0) Red Blood Count 4.66 x10^6/uL (3.50-5.40) Hemoglobin 12.4 g/dL (12.0-15.5) Hematocrit 37.7 % (36.0-47.0) Mean Corpuscular Volume 81 fL (79-100) Mean Corpuscular Hemoglobin 27 pg (25-35) Mean Corpuscular Hemoglobin Concent 33 g/dL (31-37) Red Cell Distribution Width 22.1 % (11.5-14.5) Platelet Count 211 x10^3/uL (140-400) Neutrophils (%) (Auto) 64 % (31-73) Lymphocytes (%) (Auto) 27 % (24-48) Monocytes (%) (Auto) 6 % (0-9) Eosinophils (%) (Auto) 2 % (0-3) Basophils (%) (Auto) 1 % (0-3) Neutrophils # (Auto) 4.9 x10^3uL (1.8-7.7) Lymphocytes # (Auto) 2.1 x10^3/uL (1.0-4.8) Monocytes # (Auto) 0.5 x10^3/uL (0.0-1.1) Eosinophils # (Auto) 0.1 x10^3/uL (0.0-0.7) Basophils # (Auto) 0.1 x10^3/uL (0.0-0.2) Platelet Estimate Adequate (ADEQUATE) Large Platelets Few Poikilocytosis Present Anisocytosis Slight Target Cells Present Ovalocytes Present Prothrombin Time 12.3 SEC (11.7-14.0) Prothromb Time International Ratio 1.0 (0.8-1.1) Sodium Level 136 mmol/L (136-145) Potassium Level 4.4 mmol/L (3.5-5.1) Chloride Level 99 mmol/L (98-107) Carbon Dioxide Level 24 mmol/L (21-32) Anion Gap 13 (6-14) Blood Urea Nitrogen 25 mg/dL (7-20) Creatinine 1.4 mg/dL (0.6-1.0) Estimated GFR (Cockcroft-Gault) 45.0 BUN/Creatinine Ratio 18 (6-20) Glucose Level 262 mg/dL (70-99) Calcium Level 10.5 mg/dL (8.5-10.1) Total Bilirubin 0.3 mg/dL (0.2-1.0) Aspartate Amino Transf (AST/SGOT) 19 U/L (15-37) Alanine Aminotransferase (ALT/SGPT) 17 U/L (14-59) Alkaline Phosphatase 70 U/L (46-116) Troponin I Quantitative < 0.017 ng/mL (0.000-0.055) Total Protein 8.6 g/dL (6.4-8.2) Albumin 4.0 g/dL (3.4-5.0) Albumin/Globulin Ratio 0.9 (1.0-1.7) Ethyl Alcohol Level < 10 mg/dL (0-10) Urine Collection Type Unknown Urine Color Yellow Urine Clarity Clear Urine pH 5.5 Urine Specific Cameron 1.015 Urine Protein Negative mg/dL (NEG-TRACE) Urine Glucose (UA) 500 mg/dL (NEG) Urine Ketones (Stick) Negative mg/dL (NEG) Urine Blood Negative (NEG) Urine Nitrite Positive (NEG) Urine Bilirubin Negative (NEG) Urine Urobilinogen Dipstick 0.2 mg/dL (0.2 mg/dL) Urine Leukocyte Esterase Small (NEG) Urine RBC 0 /HPF (0-2) Urine WBC 20-40 /HPF (0-4) Urine Squamous Epithelial Cells Mod /LPF Urine Bacteria Many /HPF (0-FEW) Urine Hyaline Casts Few /HPF Urine Mucus Slight /LPF Urine Opiates Screen Pos (NEG) Urine Methadone Screen Neg (NEG) Urine Barbiturates Neg (NEG) Urine Phencyclidine Screen Neg (NEG) Urine Amphetamine/Methamphetamine Neg (NEG) Urine Benzodiazepines Screen Pos (NEG) Urine Cocaine Screen Neg (NEG) Urine Cannabinoids Screen Neg (NEG) Urine Ethyl Alcohol Neg (NEG) Laboratory Tests Test 11/27/17 10:28 11/27/17 11:30 11/27/17 13:15 Glucose (Fingerstick) 266 mg/dL (70-99) White Blood Count 7.7 x10^3/uL (4.0-11.0) Red Blood Count 4.66 x10^6/uL (3.50-5.40) Hemoglobin 12.4 g/dL (12.0-15.5) Hematocrit 37.7 % (36.0-47.0) Mean Corpuscular Volume 81 fL (79-100) Mean Corpuscular Hemoglobin 27 pg (25-35) Mean Corpuscular Hemoglobin Concent 33 g/dL (31-37) Red Cell Distribution Width 22.1 % (11.5-14.5) Platelet Count 211 x10^3/uL (140-400) Neutrophils (%) (Auto) 64 % (31-73) Lymphocytes (%) (Auto) 27 % (24-48) Monocytes (%) (Auto) 6 % (0-9) Eosinophils (%) (Auto) 2 % (0-3) Basophils (%) (Auto) 1 % (0-3) Neutrophils # (Auto) 4.9 x10^3uL (1.8-7.7) Lymphocytes # (Auto) 2.1 x10^3/uL (1.0-4.8) Monocytes # (Auto) 0.5 x10^3/uL (0.0-1.1) Eosinophils # (Auto) 0.1 x10^3/uL (0.0-0.7) Basophils # (Auto) 0.1 x10^3/uL (0.0-0.2) Platelet Estimate Adequate (ADEQUATE) Large Platelets Few Poikilocytosis Present Anisocytosis Slight Target Cells Present Ovalocytes Present Prothrombin Time 12.3 SEC (11.7-14.0) Prothromb Time International Ratio 1.0 (0.8-1.1) Sodium Level 136 mmol/L (136-145) Potassium Level 4.4 mmol/L (3.5-5.1) Chloride Level 99 mmol/L (98-107) Carbon Dioxide Level 24 mmol/L (21-32) Anion Gap 13 (6-14) Blood Urea Nitrogen 25 mg/dL (7-20) Creatinine 1.4 mg/dL (0.6-1.0) Estimated GFR (Cockcroft-Gault) 45.0 BUN/Creatinine Ratio 18 (6-20) Glucose Level 262 mg/dL (70-99) Calcium Level 10.5 mg/dL (8.5-10.1) Total Bilirubin 0.3 mg/dL (0.2-1.0) Aspartate Amino Transf (AST/SGOT) 19 U/L (15-37) Alanine Aminotransferase (ALT/SGPT) 17 U/L (14-59) Alkaline Phosphatase 70 U/L (46-116) Troponin I Quantitative < 0.017 ng/mL (0.000-0.055) Total Protein 8.6 g/dL (6.4-8.2) Albumin 4.0 g/dL (3.4-5.0) Albumin/Globulin Ratio 0.9 (1.0-1.7) Ethyl Alcohol Level < 10 mg/dL (0-10) Urine Collection Type Unknown Urine Color Yellow Urine Clarity Clear Urine pH 5.5 Urine Specific Cameron 1.015 Urine Protein Negative mg/dL (NEG-TRACE) Urine Glucose (UA) 500 mg/dL (NEG) Urine Ketones (Stick) Negative mg/dL (NEG) Urine Blood Negative (NEG) Urine Nitrite Positive (NEG) Urine Bilirubin Negative (NEG) Urine Urobilinogen Dipstick 0.2 mg/dL (0.2 mg/dL) Urine Leukocyte Esterase Small (NEG) Urine RBC 0 /HPF (0-2) Urine WBC 20-40 /HPF (0-4) Urine Squamous Epithelial Cells Mod /LPF Urine Bacteria Many /HPF (0-FEW) Urine Hyaline Casts Few /HPF Urine Mucus Slight /LPF Urine Opiates Screen Pos (NEG) Urine Methadone Screen Neg (NEG) Urine Barbiturates Neg (NEG) Urine Phencyclidine Screen Neg (NEG) Urine Amphetamine/Methamphetamine Neg (NEG) Urine Benzodiazepines Screen Pos (NEG) Urine Cocaine Screen Neg (NEG) Urine Cannabinoids Screen Neg (NEG) Urine Ethyl Alcohol Neg (NEG) VTE Prophylaxis Ordered VTE Prophylaxis Devices: Yes VTE Pharmacological Prophylaxi: Yes Assessment/Plan Assessment/Plan AMS with mild confusion, slurry speech resolved, possible CVA symptom, could 2/ 2 early dementia rt knee pain, OA likely rt side weakness , subjective rt hand, rt leg 2/2 knee pain h/o abd wall cellulitis with previous Jasbir tube h/o debilitating gastroparesis with s/p J tube 04/16/17 and redone 04/22 and off h/o chronic abdominal pain with gastroparesis ok for now DM2 ckd3 obesity 34.5 BMI depression htn, controlled hypothyroidism, TSH 99 2017 multiple abd sx history Hyperlipemia GERD plan: will neuro consult neg Head ct, defer NEURO FOr MRI, Recent MRI neg, EEG neg add asa x1 for now recent lipid LDL 101, on zocor cont home meds, several HTN meds, decrease amlodipine to 10mg daily ssi, lantus 20u qhs PTOT right knee XR, dr. Fountain consult dvt ppx [id number] recent 384, check ROSANA Crawford MD Nov 27, 2017 16:04
[2017-11-27] MEDS ORDERED: ASPIRIN 325 MG TABLET PO ONE (16:15)
--- NOTE | 2017-11-27 16:32 | PDOC2 ---
NEUROLOGY CONSULT Date of Admission Date of Admission DATE: 11/27/17 TIME: 16:23 Reason for Consult Reason for Consult: Weakness Referring Physician Referring Physician: Dr. Del Toro PCP: Dr. Heart Source Source: Chart review, Patient History of Present Illness History of Present Illness The patient is a 72-year-old right-handed female who says her daughter brought her in for weakness. She tells me that she has some pain in the right knee and trouble walking. Emergent department staff got a history of right-sided weakness and dysarthria. The patient was here with left-sided weakness in September and had negative MRI of the brain, left encephalogram, and laboratory workup. Patient admits that she has some memory problems. There is no behavioral issues. She does have some incontinence. Past Medical History Cardiovascular: HTN, Hyperlipidemia GI: Diverticulosis, GERD, Other (gastroparesis, diarrhea) Heme/Onc: Anemia NOS Psych: Anxiety Musculoskeletal: Osteoarthritis Renal/: UTI, Urinary Incontinence Endocrine: Diabetes, Hypothyroidism Past Surgical History Past Surgical History: Cholecystectomy, Cataract Removal, Total knee replacement (left), Hysterectomy (still has ovaries), Other (retina PEG tube placement and removal, thyroidectomy) Family History Family History: Hypertension Social History Social History No tobacco or alcohol, lives with daughter Current Medications Current Medications Current Medications Influenza Virus Vaccine (Afluria Trivalent [id number] Syringe) 0.5 ml ONCE ONCE VAX IM ; Start 11/27/17 at 17:00; Stop 11/27/17 at 17:01 Amitriptyline HCl (Elavil) 50 mg QHS PO ; Start 11/27/17 at 21:00 Amlodipine Besylate (Norvasc) 10 mg BID PO ; Start 11/27/17 at 21:00; Stop 11/27 at 21:00; Status DC Docusate Sodium (Colace) 100 mg DAILY PO ; Start 11/28/17 at 09:00 Acetaminophen/ Hydrocodone Bitart (Lortab 5/325) 1 tab PRN BID PRN PO MODERATE PAIN; Start 11/27/17 at 15:30 Levothyroxine Sodium (Synthroid) 100 mcg DAILY05 PO ; Start 11/28/17 at 05:00 Metoclopramide HCl (Reglan) 10 mg PRN TID PRN PO NAUSEA; Start 11/27/17 at 15: 30 Metoprolol Succinate (Toprol Xl) 100 mg DAILY PO ; Start 11/28/17 at 09:00 Trazodone HCl (Desyrel) 50 mg DAILY PO ; Start 11/28/17 at 09:00 Zolpidem Tartrate (Ambien) 5 mg PRN QHS PRN PO INSOMNIA; Start 11/27/17 at 15: 30 Insulin Glargine (Lantus) 20 units QHS SQ ; Start 11/27/17 at 21:00 Ferrous Sulfate (Feosol) 325 mg DAILYWBKFT PO ; Start 11/28/17 at 08:00 Losartan Potassium (Cozaar) 100 mg DAILY PO ; Start 11/28/17 at 09:00 Metformin HCl (Glucophage) 1,000 mg BIDWMEALS PO ; Start 11/27/17 at 17:00 Non-Formulary Medication (Omeprazole ) 1 cap DAILY06 PO ; Start 11/28/17 at 06: 00; Stop 11/28/17 at 06:00; Status DC Pantoprazole Sodium (Protonix) 40 mg DAILYAC PO ; Start 11/28/17 at 07:30 Potassium Chloride (Klor-Con) 20 meq DAILYWBKFT PO ; Start 11/28/17 at 08:00 Simvastatin (Zocor) 20 mg HS PO ; Start 11/27/17 at 21:00 Spironolactone (Aldactone) 50 mg DAILY PO ; Start 11/28/17 at 09:00 Sucralfate (Carafate) 1 gm QIDACHS PO ; Start 11/27/17 at 16:30 Insulin Human Lispro (HumaLOG) 0-9 UNITS TIDWMEALS SQ ; Start 11/27/17 at 17:00 Dextrose (Dextrose 50%-Water Syringe) 12.5 gm PRN Q15MIN PRN IV SEE COMMENTS; Start 11/27/17 at 15:30 Hydrochlorothiazide (Microzide) 12.5 mg DAILY PO ; Start 11/28/17 at 09:00 Amlodipine Besylate (Norvasc) 10 mg DAILY PO ; Start 11/28/17 at 09:00 Aspirin (Evelina Aspirin) 325 mg 1X ONCE PO ; Start 11/27/17 at 16:15; Stop 11/27 at 16:16; Status DC Active Scripts Active Levemir Flextouch (Insulin Detemir) 100 Unit/1 Ml Insuln.pen 20 Unit SQ QHS 30 Days Reported Metformin Hcl 1,000 Mg Tablet 1,000 Mg PO BIDWMEALS Ferralet 90 Dual-Iron Tablet (Iron, Carb & Gluc/Fa/B12/C/Dss) 1 Each Tablet 1 Tab PO DAILY Reglan (Metoclopramide Hcl) 10 Mg Tablet 1 Tab PO TID PRN Sucralfate 1 Gm Tablet 1 Tab PO QIDACHS Metoprolol Succinate ( Xl ) (Metoprolol Succinate) 100 Mg Tab.er.24h 1 Tab PO DAILY Simvastatin 20 Mg Tablet 1 Tab PO QHS [place] 5-325 Tablet (Acetaminophen/Hydrocodone Bitart) 1 Each Tablet 1 Tab PO BID PRN Levothyroxine Sodium 100 Mcg Tablet 1 Tab PO DAILY05 Spironolactone 50 Mg Tablet 1 Tab PO DAILY Docusate Sodium 100 Mg Capsule 1 Cap PO DAILY Trazodone Hcl 50 Mg Tablet 50 Mg PO DAILY Omeprazole 40 Mg Capsule.dr 1 Cap PO DAILY06 Ibuprofen 800 Mg Tablet 800 Mg PO TID PRN Losartan-Hctz 100-12.5 Mg Tab (Losartan/Hydrochlorothiazide) 1 Each Tablet 1 Tab PO DAILY Amitriptyline Hcl 50 Mg Tablet 1 Tab PO QHS Ambien (Zolpidem Tartrate) 5 Mg Tablet 5 Mg PO HS PRN Potassium Chloride 20 Meq Tablet.er 20 Meq PO DAILY Protonix (Pantoprazole Sodium) 20 Mg Tablet.dr 40 Mg PO DAILYAC Amlodipine Besylate 10 Mg Tablet 10 Mg PO BID Allergies Allergies: Coded Allergies: Sulfa (Sulfonamide Antibiotics) (Verified Allergy, Intermediate, 12/22/16) prochlorperazine (Verified Adverse Reaction, Intermediate, DIZZY, 04/08/17) ROS Review of System Patient denies fevers, chills, weight loss, dyspnea, angina, abdominal pain, change in bowels, or dysuria. 14-point review of systems is negative. Physical Exam Physical Examination General: Well-developed, well-nourished, black female, in no acute distress HEENT: Normocephalic andatraumatic. Temporal arteriespulsatile and nontender. Neck: Supple without bruit, no meningismus Musculoskeletal: Stability:see neurologic. Gait exam:see neurologic. Tone:see neurologic. Strength:see neurologic. Neurological: Mental Status:orientation, memory, attention span/concentration, language, fund of knowledge normal, except she does not know name of president. Cranial Nerves:Pupils equal and reactive to light, extraocular movements areintact, visual fuentes are full to confrontation. Facial sensation is normal. There is no facial asymmetry. Vestibulo-ocular reflex is intact. Palate elvates and tongue protrudes in midline. All other cranial related problems are negative except as mentioned before.Reflexes:1+ and symmetric with flexor plantar responses. Motor:5/5 strength with normal tone and bulk. Coordination:Finger- nose finger and dleo-uq-erei testing are normal. Rapid alternating movements and fine finger movements are intact. Gait:Arthritic. Sensory:Normal pinprick , vibration, light touch, proprioception. Vitals VITALS Vital Signs Date Time Temp Pulse Resp B/P (MAP) Pulse Ox O2 Delivery O2 Flow Rate FiO2 11/27/17 14:39 Room Air 11/27/17 14:33 97.5 72 18 106/59 (75) 98 97.5 Labs Labs Laboratory Tests Test 11/27/17 10:28 11/27/17 11:30 11/27/17 13:15 Glucose (Fingerstick) 266 mg/dL (70-99) White Blood Count 7.7 x10^3/uL (4.0-11.0) Red Blood Count 4.66 x10^6/uL (3.50-5.40) Hemoglobin 12.4 g/dL (12.0-15.5) Hematocrit 37.7 % (36.0-47.0) Mean Corpuscular Volume 81 fL (79-100) Mean Corpuscular Hemoglobin 27 pg (25-35) Mean Corpuscular Hemoglobin Concent 33 g/dL (31-37) Red Cell Distribution Width 22.1 % (11.5-14.5) Platelet Count 211 x10^3/uL (140-400) Neutrophils (%) (Auto) 64 % (31-73) Lymphocytes (%) (Auto) 27 % (24-48) Monocytes (%) (Auto) 6 % (0-9) Eosinophils (%) (Auto) 2 % (0-3) Basophils (%) (Auto) 1 % (0-3) Neutrophils # (Auto) 4.9 x10^3uL (1.8-7.7) Lymphocytes # (Auto) 2.1 x10^3/uL (1.0-4.8) Monocytes # (Auto) 0.5 x10^3/uL (0.0-1.1) Eosinophils # (Auto) 0.1 x10^3/uL (0.0-0.7) Basophils # (Auto) 0.1 x10^3/uL (0.0-0.2) Platelet Estimate Adequate (ADEQUATE) Large Platelets Few Poikilocytosis Present Anisocytosis Slight Target Cells Present Ovalocytes Present Prothrombin Time 12.3 SEC (11.7-14.0) Prothromb Time International Ratio 1.0 (0.8-1.1) Sodium Level 136 mmol/L (136-145) Potassium Level 4.4 mmol/L (3.5-5.1) Chloride Level 99 mmol/L (98-107) Carbon Dioxide Level 24 mmol/L (21-32) Anion Gap 13 (6-14) Blood Urea Nitrogen 25 mg/dL (7-20) Creatinine 1.4 mg/dL (0.6-1.0) Estimated GFR (Cockcroft-Gault) 45.0 BUN/Creatinine Ratio 18 (6-20) Glucose Level 262 mg/dL (70-99) Calcium Level 10.5 mg/dL (8.5-10.1) Total Bilirubin 0.3 mg/dL (0.2-1.0) Aspartate Amino Transf (AST/SGOT) 19 U/L (15-37) Alanine Aminotransferase (ALT/SGPT) 17 U/L (14-59) Alkaline Phosphatase 70 U/L (46-116) Troponin I Quantitative < 0.017 ng/mL (0.000-0.055) Total Protein 8.6 g/dL (6.4-8.2) Albumin 4.0 g/dL (3.4-5.0) Albumin/Globulin Ratio 0.9 (1.0-1.7) Ethyl Alcohol Level < 10 mg/dL (0-10) Urine Collection Type Unknown Urine Color Yellow Urine Clarity Clear Urine pH 5.5 Urine Specific [place] 1.015 Urine Protein Negative mg/dL (NEG-TRACE) Urine Glucose (UA) 500 mg/dL (NEG) Urine Ketones (Stick) Negative mg/dL (NEG) Urine Blood Negative (NEG) Urine Nitrite Positive (NEG) Urine Bilirubin Negative (NEG) Urine Urobilinogen Dipstick 0.2 mg/dL (0.2 mg/dL) Urine Leukocyte Esterase Small (NEG) Urine RBC 0 /HPF (0-2) Urine WBC 20-40 /HPF (0-4) Urine Squamous Epithelial Cells Mod /LPF Urine Bacteria Many /HPF (0-FEW) Urine Hyaline Casts Few /HPF Urine Mucus Slight /LPF Urine Opiates Screen Pos (NEG) Urine Methadone Screen Neg (NEG) Urine Barbiturates Neg (NEG) Urine Phencyclidine Screen Neg (NEG) Urine Amphetamine/Methamphetamine Neg (NEG) Urine Benzodiazepines Screen Pos (NEG) Urine Cocaine Screen Neg (NEG) Urine Cannabinoids Screen Neg (NEG) Urine Ethyl Alcohol Neg (NEG) Laboratory Tests Test 11/27/17 10:28 11/27/17 11:30 11/27/17 13:15 Glucose (Fingerstick) 266 mg/dL (70-99) White Blood Count 7.7 x10^3/uL (4.0-11.0) Red Blood Count 4.66 x10^6/uL (3.50-5.40) Hemoglobin 12.4 g/dL (12.0-15.5) Hematocrit 37.7 % (36.0-47.0) Mean Corpuscular Volume 81 fL (79-100) Mean Corpuscular Hemoglobin 27 pg (25-35) Mean Corpuscular Hemoglobin Concent 33 g/dL (31-37) Red Cell Distribution Width 22.1 % (11.5-14.5) Platelet Count 211 x10^3/uL (140-400) Neutrophils (%) (Auto) 64 % (31-73) Lymphocytes (%) (Auto) 27 % (24-48) Monocytes (%) (Auto) 6 % (0-9) Eosinophils (%) (Auto) 2 % (0-3) Basophils (%) (Auto) 1 % (0-3) Neutrophils # (Auto) 4.9 x10^3uL (1.8-7.7) Lymphocytes # (Auto) 2.1 x10^3/uL (1.0-4.8) Monocytes # (Auto) 0.5 x10^3/uL (0.0-1.1) Eosinophils # (Auto) 0.1 x10^3/uL (0.0-0.7) Basophils # (Auto) 0.1 x10^3/uL (0.0-0.2) Platelet Estimate Adequate (ADEQUATE) Large Platelets Few Poikilocytosis Present Anisocytosis Slight Target Cells Present Ovalocytes Present Prothrombin Time 12.3 SEC (11.7-14.0) Prothromb Time International Ratio 1.0 (0.8-1.1) Sodium Level 136 mmol/L (136-145) Potassium Level 4.4 mmol/L (3.5-5.1) Chloride Level 99 mmol/L (98-107) Carbon Dioxide Level 24 mmol/L (21-32) Anion Gap 13 (6-14) Blood Urea Nitrogen 25 mg/dL (7-20) Creatinine 1.4 mg/dL (0.6-1.0) Estimated GFR (Cockcroft-Gault) 45.0 BUN/Creatinine Ratio 18 (6-20) Glucose Level 262 mg/dL (70-99) Calcium Level 10.5 mg/dL (8.5-10.1) Total Bilirubin 0.3 mg/dL (0.2-1.0) Aspartate Amino Transf (AST/SGOT) 19 U/L (15-37) Alanine Aminotransferase (ALT/SGPT) 17 U/L (14-59) Alkaline Phosphatase 70 U/L (46-116) Troponin I Quantitative < 0.017 ng/mL (0.000-0.055) Total Protein 8.6 g/dL (6.4-8.2) Albumin 4.0 g/dL (3.4-5.0) Albumin/Globulin Ratio 0.9 (1.0-1.7) Ethyl Alcohol Level < 10 mg/dL (0-10) Urine Collection Type Unknown Urine Color Yellow Urine Clarity Clear Urine pH 5.5 Urine Specific [place] 1.015 Urine Protein Negative mg/dL (NEG-TRACE) Urine Glucose (UA) 500 mg/dL (NEG) Urine Ketones (Stick) Negative mg/dL (NEG) Urine Blood Negative (NEG) Urine Nitrite Positive (NEG) Urine Bilirubin Negative (NEG) Urine Urobilinogen Dipstick 0.2 mg/dL (0.2 mg/dL) Urine Leukocyte Esterase Small (NEG) Urine RBC 0 /HPF (0-2) Urine WBC 20-40 /HPF (0-4) Urine Squamous Epithelial Cells Mod /LPF Urine Bacteria Many /HPF (0-FEW) Urine Hyaline Casts Few /HPF Urine Mucus Slight /LPF Urine Opiates Screen Pos (NEG) Urine Methadone Screen Neg (NEG) Urine Barbiturates Neg (NEG) Urine Phencyclidine Screen Neg (NEG) Urine Amphetamine/Methamphetamine Neg (NEG) Urine Benzodiazepines Screen Pos (NEG) Urine Cocaine Screen Neg (NEG) Urine Cannabinoids Screen Neg (NEG) Urine Ethyl Alcohol Neg (NEG) Images Images CT head: Noncontrast CT imaging was performed of the head. Exposure: One or more of the following individualized dose reduction techniques were utilized for this examination: 1. Automated exposure control 2. Adjustment of the mA and/or kV according to patient size 3. Use of iterative reconstruction technique. Findings: No acute extra-axial or parenchymal hemorrhage is identified. There is no significant intra-axial mass effect, midline shift, or extra-axial fluid collection. The santos-white differentiation of the major vascular territories is preserved. The ventricles, sulci, and cisterns are within normal limits in size and configuration. The mastoid air cells and the visualized paranasal sinuses are aerated. No acute calvarial abnormality is identified. Impression: 1. No acute intracranial abnormality is identified. If there is concern for evolving or acute ischemia, followup CT or MRI could be beneficial. Assessment/Plan Assessment/Plan Impression: Gait disorder, mainly due to arthritis, may be some component of a mild peripheral neuropathy as evidenced only by decreased reflexes. Mild cognitive impairment. Right-sided weakness and dysarthria, patient denies this, but did talk about it in the emergency department. No sign of acute stroke. Prior workup for left-sided symptoms was negative in September. Recommendations: MRI of the brain Physiatry has been counseled regarding the right knee. No additional studies unless MRI positive for stroke. She certainly was not a candidate for alteplase given the fact that symptoms started 2 days before coming to the emergency department. Thank you for letting me help with the patient's care. [place] MILLER MD Nov 27, 2017 16:32
[2017-11-27] MEDS: INSULIN LISPRO 300 UNITS/3 ML INSULN.PEN. SQ SCH (17:00)
[2017-11-27] MEDS: SUCRALFATE 1 GM TABLET. PO SCH ×2 (17:52→20:15)
[2017-11-27] MEDS: metFORMIN 500 MG TABLET PO SCH (17:52)
[2017-11-27] MEDS: HYDROcodone/APAP 5/325MG 1 TAB TABLET PO PRN (17:52)
[2017-11-27 19:22] VITALS: BP 120/71
--- NOTE | 2017-11-27 20:14 | RAD ---
Two-view right knee radiographs 11/27/2017 CLINICAL HISTORY: Right knee pain. AP and lateral digital radiographs of the right knee were obtained. Moderate to severe degenerative changes are seen involving all 3 compartments of the right knee. These consist of varying degrees of disc space narrowing, vertebral endplate sclerosis and associated osteophyte formation. A 2.5 cm rounded lucency overlies the medial femoral condyle an AP radiograph. This could represent a subchondral cyst. No fracture or dislocation is seen. IMPRESSION: Moderate to severe degenerative changes are seen involving the right knee. No acute osseous abnormality is seen. Electronically signed by: Reuben Jones MD (11/27/2017 8:10 PM) [facility]
[2017-11-27] MEDS: AMITRIPTYLINE HCL 50 MG TABLET PO SCH (20:15)
[2017-11-27] MEDS: ZOLPIDEM 5 MG TABLET. PO PRN (20:15)
[2017-11-27] MEDS: SIMVASTATIN 20 MG TABLET PO SCH (20:15)
[2017-11-27] MEDS: INSULIN GLARGINE 300 UNITS/3 ML INSULN.PEN. SQ SCH (20:21)
[2017-11-27] MEDS ORDERED: amLODIPine BESYLATE 10 MG TABLET PO SCH (21:00)
[2017-11-27 23:08] VITALS: BP 128/89
[2017-11-28 03:10] VITALS: BP 139/81
[2017-11-28] MEDS: LEVOTHYROXINE 100 MCG TABLET PO SCH (05:31)
[2017-11-28] MEDS ORDERED: NON FORMULARY ITEM (Omeprazole 1 CAP) PO SCH (06:00)
[2017-11-28 07:38] VITALS: BP 119/72
[2017-11-28] MEDS: INSULIN LISPRO 300 UNITS/3 ML INSULN.PEN. SQ SCH ×3 (08:00→17:43)
--- NOTE | 2017-11-28 08:09 | PDOC ---
PROGRESS NOTES Assessment Problems Medical Problems: (1) Right sided weakness Status: Acute Gait disorder, mainly due to arthritis, may be some component of a mild peripheral neuropathy as evidenced only by decreased reflexes. Mild cognitive impairment. Right-sided weakness and dysarthria, patient denies this, but did talk about it in the emergency department. No sign of acute stroke. Prior workup for left-sided symptoms was negative in September. Plan Await MRI of the brain Physiatry regarding the right knee. No additional studies unless MRI positive for stroke. Okay from me for discharge later today if studies negative Follow-up with neurology as needed. Subjective She has no complaints, feels better, wants to go home today Objective Vital Signs Date Time Temp Pulse Resp B/P (MAP) Pulse Ox O2 Delivery O2 Flow Rate FiO2 11/28/17 07:38 97.8 89 20 119/72 (88) 95 Room Air 97.8 Intake and Output 11/28/17 07:00 Intake Total 440 ml Output Total 1200 ml Balance -760 ml Intake Oral 440 ml Output Urine Total 1200 ml PHYSICAL EXAM Alert. Oriented to time, place and person. PERRL. EOMI. CN: no focal findings. Muscle tone: normal. Muscle strength: 5/5 DTR: 1+ Plantar reflex: flexor Gait: not examined in bed. Sensory exam: no abnormal findings. No cerebellar signs elicited. Review of Relevant I have reviewed the following items mert (where applicable) has been applied. Labs Laboratory Tests Test 11/27/17 10:28 11/27/17 11:30 11/27/17 13:15 11/27/17 16:56 Glucose (Fingerstick) 266 mg/dL (70-99) 136 mg/dL (70-99) White Blood Count 7.7 x10^3/uL (4.0-11.0) Red Blood Count 4.66 x10^6/uL (3.50-5.40) Hemoglobin 12.4 g/dL (12.0-15.5) Hematocrit 37.7 % (36.0-47.0) Mean Corpuscular Volume 81 fL (79-100) Mean Corpuscular Hemoglobin 27 pg (25-35) Mean Corpuscular Hemoglobin Concent 33 g/dL (31-37) Red Cell Distribution Width 22.1 % (11.5-14.5) Platelet Count 211 x10^3/uL (140-400) Neutrophils (%) (Auto) 64 % (31-73) Lymphocytes (%) (Auto) 27 % (24-48) Monocytes (%) (Auto) 6 % (0-9) Eosinophils (%) (Auto) 2 % (0-3) Basophils (%) (Auto) 1 % (0-3) Neutrophils # (Auto) 4.9 x10^3uL (1.8-7.7) Lymphocytes # (Auto) 2.1 x10^3/uL (1.0-4.8) Monocytes # (Auto) 0.5 x10^3/uL (0.0-1.1) Eosinophils # (Auto) 0.1 x10^3/uL (0.0-0.7) Basophils # (Auto) 0.1 x10^3/uL (0.0-0.2) Platelet Estimate Adequate (ADEQUATE) Large Platelets Few Poikilocytosis Present Anisocytosis Slight Target Cells Present Ovalocytes Present Prothrombin Time 12.3 SEC (11.7-14.0) Prothromb Time International Ratio 1.0 (0.8-1.1) Sodium Level 136 mmol/L (136-145) Potassium Level 4.4 mmol/L (3.5-5.1) Chloride Level 99 mmol/L (98-107) Carbon Dioxide Level 24 mmol/L (21-32) Anion Gap 13 (6-14) Blood Urea Nitrogen 25 mg/dL (7-20) Creatinine 1.4 mg/dL (0.6-1.0) Estimated GFR (Cockcroft-Gault) 45.0 BUN/Creatinine Ratio 18 (6-20) Glucose Level 262 mg/dL (70-99) Calcium Level 10.5 mg/dL (8.5-10.1) Total Bilirubin 0.3 mg/dL (0.2-1.0) Aspartate Amino Transf (AST/SGOT) 19 U/L (15-37) Alanine Aminotransferase (ALT/SGPT) 17 U/L (14-59) Alkaline Phosphatase 70 U/L (46-116) Troponin I Quantitative < 0.017 ng/mL (0.000-0.055) Total Protein 8.6 g/dL (6.4-8.2) Albumin 4.0 g/dL (3.4-5.0) Albumin/Globulin Ratio 0.9 (1.0-1.7) Ethyl Alcohol Level < 10 mg/dL (0-10) Urine Collection Type Unknown Urine Color Yellow Urine Clarity Clear Urine pH 5.5 Urine Specific [place] 1.015 Urine Protein Negative mg/dL (NEG-TRACE) Urine Glucose (UA) 500 mg/dL (NEG) Urine Ketones (Stick) Negative mg/dL (NEG) Urine Blood Negative (NEG) Urine Nitrite Positive (NEG) Urine Bilirubin Negative (NEG) Urine Urobilinogen Dipstick 0.2 mg/dL (0.2 mg/dL) Urine Leukocyte Esterase Small (NEG) Urine RBC 0 /HPF (0-2) Urine WBC 20-40 /HPF (0-4) Urine Squamous Epithelial Cells Mod /LPF Urine Bacteria Many /HPF (0-FEW) Urine Hyaline Casts Few /HPF Urine Mucus Slight /LPF Urine Opiates Screen Pos (NEG) Urine Methadone Screen Neg (NEG) Urine Barbiturates Neg (NEG) Urine Phencyclidine Screen Neg (NEG) Urine Amphetamine/Methamphetamine Neg (NEG) Urine Benzodiazepines Screen Pos (NEG) Urine Cocaine Screen Neg (NEG) Urine Cannabinoids Screen Neg (NEG) Urine Ethyl Alcohol Neg (NEG) Test 11/27/17 20:17 11/28/17 07:10 Glucose (Fingerstick) 157 mg/dL (70-99) 125 mg/dL (70-99) Laboratory Tests Test 11/27/17 10:28 11/27/17 11:30 11/27/17 13:15 11/27/17 16:56 Glucose (Fingerstick) 266 mg/dL (70-99) 136 mg/dL (70-99) White Blood Count 7.7 x10^3/uL (4.0-11.0) Red Blood Count 4.66 x10^6/uL (3.50-5.40) Hemoglobin 12.4 g/dL (12.0-15.5) Hematocrit 37.7 % (36.0-47.0) Mean Corpuscular Volume 81 fL (79-100) Mean Corpuscular Hemoglobin 27 pg (25-35) Mean Corpuscular Hemoglobin Concent 33 g/dL (31-37) Red Cell Distribution Width 22.1 % (11.5-14.5) Platelet Count 211 x10^3/uL (140-400) Neutrophils (%) (Auto) 64 % (31-73) Lymphocytes (%) (Auto) 27 % (24-48) Monocytes (%) (Auto) 6 % (0-9) Eosinophils (%) (Auto) 2 % (0-3) Basophils (%) (Auto) 1 % (0-3) Neutrophils # (Auto) 4.9 x10^3uL (1.8-7.7) Lymphocytes # (Auto) 2.1 x10^3/uL (1.0-4.8) Monocytes # (Auto) 0.5 x10^3/uL (0.0-1.1) Eosinophils # (Auto) 0.1 x10^3/uL (0.0-0.7) Basophils # (Auto) 0.1 x10^3/uL (0.0-0.2) Platelet Estimate Adequate (ADEQUATE) Large Platelets Few Poikilocytosis Present Anisocytosis Slight Target Cells Present Ovalocytes Present Prothrombin Time 12.3 SEC (11.7-14.0) Prothromb Time International Ratio 1.0 (0.8-1.1) Sodium Level 136 mmol/L (136-145) Potassium Level 4.4 mmol/L (3.5-5.1) Chloride Level 99 mmol/L (98-107) Carbon Dioxide Level 24 mmol/L (21-32) Anion Gap 13 (6-14) Blood Urea Nitrogen 25 mg/dL (7-20) Creatinine 1.4 mg/dL (0.6-1.0) Estimated GFR (Cockcroft-Gault) 45.0 BUN/Creatinine Ratio 18 (6-20) Glucose Level 262 mg/dL (70-99) Calcium Level 10.5 mg/dL (8.5-10.1) Total Bilirubin 0.3 mg/dL (0.2-1.0) Aspartate Amino Transf (AST/SGOT) 19 U/L (15-37) Alanine Aminotransferase (ALT/SGPT) 17 U/L (14-59) Alkaline Phosphatase 70 U/L (46-116) Troponin I Quantitative < 0.017 ng/mL (0.000-0.055) Total Protein 8.6 g/dL (6.4-8.2) Albumin 4.0 g/dL (3.4-5.0) Albumin/Globulin Ratio 0.9 (1.0-1.7) Ethyl Alcohol Level < 10 mg/dL (0-10) Urine Collection Type Unknown Urine Color Yellow Urine Clarity Clear Urine pH 5.5 Urine Specific [place] 1.015 Urine Protein Negative mg/dL (NEG-TRACE) Urine Glucose (UA) 500 mg/dL (NEG) Urine Ketones (Stick) Negative mg/dL (NEG) Urine Blood Negative (NEG) Urine Nitrite Positive (NEG) Urine Bilirubin Negative (NEG) Urine Urobilinogen Dipstick 0.2 mg/dL (0.2 mg/dL) Urine Leukocyte Esterase Small (NEG) Urine RBC 0 /HPF (0-2) Urine WBC 20-40 /HPF (0-4) Urine Squamous Epithelial Cells Mod /LPF Urine Bacteria Many /HPF (0-FEW) Urine Hyaline Casts Few /HPF Urine Mucus Slight /LPF Urine Opiates Screen Pos (NEG) Urine Methadone Screen Neg (NEG) Urine Barbiturates Neg (NEG) Urine Phencyclidine Screen Neg (NEG) Urine Amphetamine/Methamphetamine Neg (NEG) Urine Benzodiazepines Screen Pos (NEG) Urine Cocaine Screen Neg (NEG) Urine Cannabinoids Screen Neg (NEG) Urine Ethyl Alcohol Neg (NEG) Test 11/27/17 20:17 11/28/17 07:10 Glucose (Fingerstick) 157 mg/dL (70-99) 125 mg/dL (70-99) Medications Current Medications Influenza Virus Vaccine (Afluria Trivalent [id number] Syringe) 0.5 ml ONCE ONCE VAX IM Last administered on 11/27/17at 17:55; Start 11/27/17 at 17:00; Stop 11/27/17 at 17:01; Status DC Amitriptyline HCl (Elavil) 50 mg QHS PO Last administered on 11/27/17at 20:15; Start 11/27/17 at 21:00 Amlodipine Besylate (Norvasc) 10 mg BID PO ; Start 11/27/17 at 21:00; Stop 11/27 at 21:00; Status DC Docusate Sodium (Colace) 100 mg DAILY PO ; Start 11/28/17 at 09:00 Acetaminophen/ Hydrocodone Bitart (Lortab 5/325) 1 tab PRN BID PRN PO MODERATE PAIN Last administered on 11/27/17at 17:52; Start 11/27/17 at 15:30 Levothyroxine Sodium (Synthroid) 100 mcg DAILY05 PO Last administered on at 05:31; Start 11/28/17 at 05:00 Metoclopramide HCl (Reglan) 10 mg PRN TID PRN PO NAUSEA; Start 11/27/17 at 15: 30 Metoprolol Succinate (Toprol Xl) 100 mg DAILY PO ; Start 11/28/17 at 09:00 Trazodone HCl (Desyrel) 50 mg DAILY PO ; Start 11/28/17 at 09:00 Zolpidem Tartrate (Ambien) 5 mg PRN QHS PRN PO INSOMNIA Last administered on at 20:15; Start 11/27/17 at 15:30 Insulin Glargine (Lantus) 20 units QHS SQ Last administered on 11/27/17at 20:21 ; Start 11/27/17 at 21:00 Ferrous Sulfate (Feosol) 325 mg DAILYWBKFT PO ; Start 11/28/17 at 08:00 Losartan Potassium (Cozaar) 100 mg DAILY PO ; Start 11/28/17 at 09:00 Metformin HCl (Glucophage) 1,000 mg BIDWMEALS PO ; Start 11/27/17 at 17:00; Stop 11/27/17 at 17:00; Status DC Non-Formulary Medication (Omeprazole ) 1 cap DAILY06 PO ; Start 11/28/17 at 06: 00; Stop 11/28/17 at 06:00; Status DC Pantoprazole Sodium (Protonix) 40 mg DAILYAC PO ; Start 11/28/17 at 07:30 Potassium Chloride (Klor-Con) 20 meq DAILYWBKFT PO ; Start 11/28/17 at 08:00 Simvastatin (Zocor) 20 mg HS PO Last administered on 11/27/17at 20:15; Start at 21:00 Spironolactone (Aldactone) 50 mg DAILY PO ; Start 11/28/17 at 09:00 Sucralfate (Carafate) 1 gm QIDACHS PO Last administered on 11/27/17at 20:15; Start 11/27/17 at 16:30 Insulin Human Lispro (HumaLOG) 0-9 UNITS TIDWMEALS SQ ; Start 11/27/17 at 17:00 Dextrose (Dextrose 50%-Water Syringe) 12.5 gm PRN Q15MIN PRN IV SEE COMMENTS; Start 11/27/17 at 15:30 Hydrochlorothiazide (Microzide) 12.5 mg DAILY PO ; Start 11/28/17 at 09:00 Amlodipine Besylate (Norvasc) 10 mg DAILY PO ; Start 11/28/17 at 09:00 Aspirin (Evelina Aspirin) 325 mg 1X ONCE PO Last administered on 11/27/17at 17:52 ; Start 11/27/17 at 16:15; Stop 11/27/17 at 16:16; Status DC Metformin HCl (Glucophage) 1,000 mg BIDWMEALS PO Last administered on at 17:52; Start 11/27/17 at 17:00 Active Scripts Active Levemir Flextouch (Insulin Detemir) 100 Unit/1 Ml Insuln.pen 20 Unit SQ QHS 30 Days Reported Metformin Hcl 1,000 Mg Tablet 1,000 Mg PO BIDWMEALS Ferralet 90 Dual-Iron Tablet (Iron, Carb & Gluc/Fa/B12/C/Dss) 1 Each Tablet 1 Tab PO DAILY Reglan (Metoclopramide Hcl) 10 Mg Tablet 1 Tab PO TID PRN Sucralfate 1 Gm Tablet 1 Tab PO QIDACHS Metoprolol Succinate ( Xl ) (Metoprolol Succinate) 100 Mg Tab.er.24h 1 Tab PO DAILY Simvastatin 20 Mg Tablet 1 Tab PO QHS [place] 5-325 Tablet (Acetaminophen/Hydrocodone Bitart) 1 Each Tablet 1 Tab PO BID PRN Levothyroxine Sodium 100 Mcg Tablet 1 Tab PO DAILY05 Spironolactone 50 Mg Tablet 1 Tab PO DAILY Docusate Sodium 100 Mg Capsule 1 Cap PO DAILY Trazodone Hcl 50 Mg Tablet 50 Mg PO DAILY Omeprazole 40 Mg Capsule.dr 1 Cap PO DAILY06 Ibuprofen 800 Mg Tablet 800 Mg PO TID PRN Losartan-Hctz 100-12.5 Mg Tab (Losartan/Hydrochlorothiazide) 1 Each Tablet 1 Tab PO DAILY Amitriptyline Hcl 50 Mg Tablet 1 Tab PO QHS Ambien (Zolpidem Tartrate) 5 Mg Tablet 5 Mg PO HS PRN Potassium Chloride 20 Meq Tablet.er 20 Meq PO DAILY Protonix (Pantoprazole Sodium) 20 Mg Tablet.dr 40 Mg PO DAILYAC Amlodipine Besylate 10 Mg Tablet 10 Mg PO BID Vitals/I & O Vital Sign - Last 24 Hours 11/27/17 11/27/17 11/27/17 11/27/17 10:27 11:51 12:21 12:51 Temp 98.3 98.3 Pulse 77 72 68 72 Resp 18 20 19 18 B/P (MAP) 121/77 (92) Pulse Ox 97 96 O2 Delivery Room Air 11/27/17 11/27/17 11/27/17 11/27/17 13:21 13:37 14:33 14:39 Temp 97.5 97.5 Pulse 74 70 72 Resp 21 20 18 B/P (MAP) 106/59 (75) Pulse Ox 100 99 98 O2 Delivery Room Air Room Air 11/27/17 11/27/17 11/27/17 11/27/17 17:52 19:22 20:00 23:08 Temp 98.0 97.6 98.0 97.6 Pulse 76 85 Resp 16 16 B/P (MAP) 120/71 (87) 128/89 (102) Pulse Ox 98 97 96 O2 Delivery Room Air Room Air Room Air Room Air 11/28/17 11/28/17 03:10 07:38 Temp 97.8 97.8 97.8 97.8 Pulse 86 89 Resp 16 20 B/P (MAP) 139/81 (100) 119/72 (88) Pulse Ox 96 95 O2 Delivery Room Air Room Air Intake and Output 11/27/17 11/27/17 11/28/17 15:00 23:00 07:00 Intake Total 100 ml 340 ml Output Total 1200 ml Balance 100 ml -860 ml [place] MILLER MD Nov 28, 2017 08:09
--- NOTE | 2017-11-28 08:21 | PDOC ---
PROGRESS NOTES Chief Complaint Chief Complaint Right sided weakness Episodic confusion History of Present Illness History of Present Illness Patient is a 72 year old female presenting with right-sided weakness and slurred speech since 11/25/17. She states her daughter told her she was confused. Seen here 1 month ago for similar presentation with left side weakness, neg MRI at that time. Pt actually has rt knee pain, now cannot walk 2/2 pain. Seen by PMR for right knee injection with improvement No fever, chills, headache. Head CT neg and MRI negative. Seen by neurology. A little tachycardic with ambulation after her knee injection. EKG reviewed with non-specific t-wave flattening, no significant ST segment changes. Troponin negative, no CP or SOB. She is asking to return home with her daughter today A/P: AMS with mild confusion, slurry speech resolved, possible CVA symptom, could 2/ 2 early dementia with , likely vascular type possibly exacerbated by her knee pain - neg Head ct, defer NEURO For MRI, Recent MRI neg as well as this repeat, EEG neg. On ASA therapy and statin rt knee pain, OA likely - improved with PMR treatment rt side weakness , subjective rt hand, rt leg 2/2 knee pain h/o abd wall cellulitis with previous Jasbir tube h/o debilitating gastroparesis with s/p J tube 04/16/17 and redone 04/22 and off now h/o chronic abdominal pain with gastroparesis - ok for now, no GI complaints DM2 - sugars controlled ckd3 - Stable obesity 34.5 BMI - weight loss counseled depression - euthymic now htn, controlled - on norvasc hypothyroidism, TSH 99 2017 multiple abd sx history Hyperlipemia - on statin GERD - on PPI Vitals Vitals Vital Signs Date Time Temp Pulse Resp B/P (MAP) Pulse Ox O2 Delivery O2 Flow Rate FiO2 11/28/17 07:38 97.8 89 20 119/72 (88) 95 Room Air 97.8 Physical Exam General: Alert, Cooperative Heart: Normal S1, Normal S2, Other (tachycardic) Lungs: Clear, Other Abdomen: Normal bowel sounds Extremities: No edema, Normal pulses Skin: No rashes, No breakdown Labs LABS Laboratory Tests Test 11/27/17 10:28 11/27/17 11:30 11/27/17 13:15 11/27/17 16:56 Glucose (Fingerstick) 266 mg/dL (70-99) 136 mg/dL (70-99) White Blood Count 7.7 x10^3/uL (4.0-11.0) Red Blood Count 4.66 x10^6/uL (3.50-5.40) Hemoglobin 12.4 g/dL (12.0-15.5) Hematocrit 37.7 % (36.0-47.0) Mean Corpuscular Volume 81 fL (79-100) Mean Corpuscular Hemoglobin 27 pg (25-35) Mean Corpuscular Hemoglobin Concent 33 g/dL (31-37) Red Cell Distribution Width 22.1 % (11.5-14.5) Platelet Count 211 x10^3/uL (140-400) Neutrophils (%) (Auto) 64 % (31-73) Lymphocytes (%) (Auto) 27 % (24-48) Monocytes (%) (Auto) 6 % (0-9) Eosinophils (%) (Auto) 2 % (0-3) Basophils (%) (Auto) 1 % (0-3) Neutrophils # (Auto) 4.9 x10^3uL (1.8-7.7) Lymphocytes # (Auto) 2.1 x10^3/uL (1.0-4.8) Monocytes # (Auto) 0.5 x10^3/uL (0.0-1.1) Eosinophils # (Auto) 0.1 x10^3/uL (0.0-0.7) Basophils # (Auto) 0.1 x10^3/uL (0.0-0.2) Platelet Estimate Adequate (ADEQUATE) Large Platelets Few Poikilocytosis Present Anisocytosis Slight Target Cells Present Ovalocytes Present Prothrombin Time 12.3 SEC (11.7-14.0) Prothromb Time International Ratio 1.0 (0.8-1.1) Sodium Level 136 mmol/L (136-145) Potassium Level 4.4 mmol/L (3.5-5.1) Chloride Level 99 mmol/L (98-107) Carbon Dioxide Level 24 mmol/L (21-32) Anion Gap 13 (6-14) Blood Urea Nitrogen 25 mg/dL (7-20) Creatinine 1.4 mg/dL (0.6-1.0) Estimated GFR (Cockcroft-Gault) 45.0 BUN/Creatinine Ratio 18 (6-20) Glucose Level 262 mg/dL (70-99) Calcium Level 10.5 mg/dL (8.5-10.1) Total Bilirubin 0.3 mg/dL (0.2-1.0) Aspartate Amino Transf (AST/SGOT) 19 U/L (15-37) Alanine Aminotransferase (ALT/SGPT) 17 U/L (14-59) Alkaline Phosphatase 70 U/L (46-116) Troponin I Quantitative < 0.017 ng/mL (0.000-0.055) Total Protein 8.6 g/dL (6.4-8.2) Albumin 4.0 g/dL (3.4-5.0) Albumin/Globulin Ratio 0.9 (1.0-1.7) Ethyl Alcohol Level < 10 mg/dL (0-10) Urine Collection Type Unknown Urine Color Yellow Urine Clarity Clear Urine pH 5.5 Urine Specific [place] 1.015 Urine Protein Negative mg/dL (NEG-TRACE) Urine Glucose (UA) 500 mg/dL (NEG) Urine Ketones (Stick) Negative mg/dL (NEG) Urine Blood Negative (NEG) Urine Nitrite Positive (NEG) Urine Bilirubin Negative (NEG) Urine Urobilinogen Dipstick 0.2 mg/dL (0.2 mg/dL) Urine Leukocyte Esterase Small (NEG) Urine RBC 0 /HPF (0-2) Urine WBC 20-40 /HPF (0-4) Urine Squamous Epithelial Cells Mod /LPF Urine Bacteria Many /HPF (0-FEW) Urine Hyaline Casts Few /HPF Urine Mucus Slight /LPF Urine Opiates Screen Pos (NEG) Urine Methadone Screen Neg (NEG) Urine Barbiturates Neg (NEG) Urine Phencyclidine Screen Neg (NEG) Urine Amphetamine/Methamphetamine Neg (NEG) Urine Benzodiazepines Screen Pos (NEG) Urine Cocaine Screen Neg (NEG) Urine Cannabinoids Screen Neg (NEG) Urine Ethyl Alcohol Neg (NEG) Test 11/27/17 20:17 11/28/17 07:10 Glucose (Fingerstick) 157 mg/dL (70-99) 125 mg/dL (70-99) Review of Systems Review of Systems Card - no CP or palpitations Resp - no SOB or cough GI - no pain or swelling Endo - no heat/cold intolerance Assessment and Plan Assessmemt and Plan Problems Medical Problems: (1) Right sided weakness Status: Acute Comment Review of Relevant I have reviewed the following items mert (where applicable) has been applied. Labs Laboratory Tests Test 11/27/17 10:28 11/27/17 11:30 11/27/17 13:15 11/27/17 16:56 Glucose (Fingerstick) 266 mg/dL (70-99) 136 mg/dL (70-99) White Blood Count 7.7 x10^3/uL (4.0-11.0) Red Blood Count 4.66 x10^6/uL (3.50-5.40) Hemoglobin 12.4 g/dL (12.0-15.5) Hematocrit 37.7 % (36.0-47.0) Mean Corpuscular Volume 81 fL (79-100) Mean Corpuscular Hemoglobin 27 pg (25-35) Mean Corpuscular Hemoglobin Concent 33 g/dL (31-37) Red Cell Distribution Width 22.1 % (11.5-14.5) Platelet Count 211 x10^3/uL (140-400) Neutrophils (%) (Auto) 64 % (31-73) Lymphocytes (%) (Auto) 27 % (24-48) Monocytes (%) (Auto) 6 % (0-9) Eosinophils (%) (Auto) 2 % (0-3) Basophils (%) (Auto) 1 % (0-3) Neutrophils # (Auto) 4.9 x10^3uL (1.8-7.7) Lymphocytes # (Auto) 2.1 x10^3/uL (1.0-4.8) Monocytes # (Auto) 0.5 x10^3/uL (0.0-1.1) Eosinophils # (Auto) 0.1 x10^3/uL (0.0-0.7) Basophils # (Auto) 0.1 x10^3/uL (0.0-0.2) Platelet Estimate Adequate (ADEQUATE) Large Platelets Few Poikilocytosis Present Anisocytosis Slight Target Cells Present Ovalocytes Present Prothrombin Time 12.3 SEC (11.7-14.0) Prothromb Time International Ratio 1.0 (0.8-1.1) Sodium Level 136 mmol/L (136-145) Potassium Level 4.4 mmol/L (3.5-5.1) Chloride Level 99 mmol/L (98-107) Carbon Dioxide Level 24 mmol/L (21-32) Anion Gap 13 (6-14) Blood Urea Nitrogen 25 mg/dL (7-20) Creatinine 1.4 mg/dL (0.6-1.0) Estimated GFR (Cockcroft-Gault) 45.0 BUN/Creatinine Ratio 18 (6-20) Glucose Level 262 mg/dL (70-99) Calcium Level 10.5 mg/dL (8.5-10.1) Total Bilirubin 0.3 mg/dL (0.2-1.0) Aspartate Amino Transf (AST/SGOT) 19 U/L (15-37) Alanine Aminotransferase (ALT/SGPT) 17 U/L (14-59) Alkaline Phosphatase 70 U/L (46-116) Troponin I Quantitative < 0.017 ng/mL (0.000-0.055) Total Protein 8.6 g/dL (6.4-8.2) Albumin 4.0 g/dL (3.4-5.0) Albumin/Globulin Ratio 0.9 (1.0-1.7) Ethyl Alcohol Level < 10 mg/dL (0-10) Urine Collection Type Unknown Urine Color Yellow Urine Clarity Clear Urine pH 5.5 Urine Specific [place] 1.015 Urine Protein Negative mg/dL (NEG-TRACE) Urine Glucose (UA) 500 mg/dL (NEG) Urine Ketones (Stick) Negative mg/dL (NEG) Urine Blood Negative (NEG) Urine Nitrite Positive (NEG) Urine Bilirubin Negative (NEG) Urine Urobilinogen Dipstick 0.2 mg/dL (0.2 mg/dL) Urine Leukocyte Esterase Small (NEG) Urine RBC 0 /HPF (0-2) Urine WBC 20-40 /HPF (0-4) Urine Squamous Epithelial Cells Mod /LPF Urine Bacteria Many /HPF (0-FEW) Urine Hyaline Casts Few /HPF Urine Mucus Slight /LPF Urine Opiates Screen Pos (NEG) Urine Methadone Screen Neg (NEG) Urine Barbiturates Neg (NEG) Urine Phencyclidine Screen Neg (NEG) Urine Amphetamine/Methamphetamine Neg (NEG) Urine Benzodiazepines Screen Pos (NEG) Urine Cocaine Screen Neg (NEG) Urine Cannabinoids Screen Neg (NEG) Urine Ethyl Alcohol Neg (NEG) Test 11/27/17 20:17 10/5/18 07:10 Glucose (Fingerstick) 157 mg/dL (70-99) 125 mg/dL (70-99) Laboratory Tests Test 11/27/17 10:28 11/27/17 11:30 11/27/17 13:15 11/27/17 16:56 Glucose (Fingerstick) 266 mg/dL (70-99) 136 mg/dL (70-99) White Blood Count 7.7 x10^3/uL (4.0-11.0) Red Blood Count 4.66 x10^6/uL (3.50-5.40) Hemoglobin 12.4 g/dL (12.0-15.5) Hematocrit 37.7 % (36.0-47.0) Mean Corpuscular Volume 81 fL (79-100) Mean Corpuscular Hemoglobin 27 pg (25-35) Mean Corpuscular Hemoglobin Concent 33 g/dL (31-37) Red Cell Distribution Width 22.1 % (11.5-14.5) Platelet Count 211 x10^3/uL (140-400) Neutrophils (%) (Auto) 64 % (31-73) Lymphocytes (%) (Auto) 27 % (24-48) Monocytes (%) (Auto) 6 % (0-9) Eosinophils (%) (Auto) 2 % (0-3) Basophils (%) (Auto) 1 % (0-3) Neutrophils # (Auto) 4.9 x10^3uL (1.8-7.7) Lymphocytes # (Auto) 2.1 x10^3/uL (1.0-4.8) Monocytes # (Auto) 0.5 x10^3/uL (0.0-1.1) Eosinophils # (Auto) 0.1 x10^3/uL (0.0-0.7) Basophils # (Auto) 0.1 x10^3/uL (0.0-0.2) Platelet Estimate Adequate (ADEQUATE) Large Platelets Few Poikilocytosis Present Anisocytosis Slight Target Cells Present Ovalocytes Present Prothrombin Time 12.3 SEC (11.7-14.0) Prothromb Time International Ratio 1.0 (0.8-1.1) Sodium Level 136 mmol/L (136-145) Potassium Level 4.4 mmol/L (3.5-5.1) Chloride Level 99 mmol/L (98-107) Carbon Dioxide Level 24 mmol/L (21-32) Anion Gap 13 (6-14) Blood Urea Nitrogen 25 mg/dL (7-20) Creatinine 1.4 mg/dL (0.6-1.0) Estimated GFR (Cockcroft-Gault) 45.0 BUN/Creatinine Ratio 18 (6-20) Glucose Level 262 mg/dL (70-99) Calcium Level 10.5 mg/dL (8.5-10.1) Total Bilirubin 0.3 mg/dL (0.2-1.0) Aspartate Amino Transf (AST/SGOT) 19 U/L (15-37) Alanine Aminotransferase (ALT/SGPT) 17 U/L (14-59) Alkaline Phosphatase 70 U/L (46-116) Troponin I Quantitative < 0.017 ng/mL (0.000-0.055) Total Protein 8.6 g/dL (6.4-8.2) Albumin 4.0 g/dL (3.4-5.0) Albumin/Globulin Ratio 0.9 (1.0-1.7) Ethyl Alcohol Level < 10 mg/dL (0-10) Urine Collection Type Unknown Urine Color Yellow Urine Clarity Clear Urine pH 5.5 Urine Specific [place] 1.015 Urine Protein Negative mg/dL (NEG-TRACE) Urine Glucose (UA) 500 mg/dL (NEG) Urine Ketones (Stick) Negative mg/dL (NEG) Urine Blood Negative (NEG) Urine Nitrite Positive (NEG) Urine Bilirubin Negative (NEG) Urine Urobilinogen Dipstick 0.2 mg/dL (0.2 mg/dL) Urine Leukocyte Esterase Small (NEG) Urine RBC 0 /HPF (0-2) Urine WBC 20-40 /HPF (0-4) Urine Squamous Epithelial Cells Mod /LPF Urine Bacteria Many /HPF (0-FEW) Urine Hyaline Casts Few /HPF Urine Mucus Slight /LPF Urine Opiates Screen Pos (NEG) Urine Methadone Screen Neg (NEG) Urine Barbiturates Neg (NEG) Urine Phencyclidine Screen Neg (NEG) Urine Amphetamine/Methamphetamine Neg (NEG) Urine Benzodiazepines Screen Pos (NEG) Urine Cocaine Screen Neg (NEG) Urine Cannabinoids Screen Neg (NEG) Urine Ethyl Alcohol Neg (NEG) Test 11/27/17 20:17 11/28/17 07:10 Glucose (Fingerstick) 157 mg/dL (70-99) 125 mg/dL (70-99) Medications Current Medications Influenza Virus Vaccine (Afluria Trivalent [id number] Syringe) 0.5 ml ONCE ONCE VAX IM Last administered on 11/27/17at 17:55; Start 11/27/17 at 17:00; Stop 11/27/17 at 17:01; Status DC Amitriptyline HCl (Elavil) 50 mg QHS PO Last administered on 11/27/17at 20:15; Start 11/27/17 at 21:00 Amlodipine Besylate (Norvasc) 10 mg BID PO ; Start 11/27/17 at 21:00; Stop 11/27 at 21:00; Status DC Docusate Sodium (Colace) 100 mg DAILY PO ; Start 11/28/17 at 09:00 Acetaminophen/ Hydrocodone Bitart (Lortab 5/325) 1 tab PRN BID PRN PO MODERATE PAIN Last administered on 11/27/17at 17:52; Start 11/27/17 at 15:30 Levothyroxine Sodium (Synthroid) 100 mcg DAILY05 PO Last administered on at 05:31; Start 11/28/17 at 05:00 Metoclopramide HCl (Reglan) 10 mg PRN TID PRN PO NAUSEA; Start 11/27/17 at 15: 30 Metoprolol Succinate (Toprol Xl) 100 mg DAILY PO ; Start 11/28/17 at 09:00 Trazodone HCl (Desyrel) 50 mg DAILY PO ; Start 11/28/17 at 09:00 Zolpidem Tartrate (Ambien) 5 mg PRN QHS PRN PO INSOMNIA Last administered on at 20:15; Start 11/27/17 at 15:30 Insulin Glargine (Lantus) 20 units QHS SQ Last administered on 11/27/17at 20:21 ; Start 11/27/17 at 21:00 Ferrous Sulfate (Feosol) 325 mg DAILYWBKFT PO ; Start 11/28/17 at 08:00 Losartan Potassium (Cozaar) 100 mg DAILY PO ; Start 11/28/17 at 09:00 Metformin HCl (Glucophage) 1,000 mg BIDWMEALS PO ; Start 11/27/17 at 17:00; Stop 11/27/17 at 17:00; Status DC Non-Formulary Medication (Omeprazole ) 1 cap DAILY06 PO ; Start 11/28/17 at 06: 00; Stop 11/28/17 at 06:00; Status DC Pantoprazole Sodium (Protonix) 40 mg DAILYAC PO ; Start 11/28/17 at 07:30 Potassium Chloride (Klor-Con) 20 meq DAILYWBKFT PO ; Start 11/28/17 at 08:00 Simvastatin (Zocor) 20 mg HS PO Last administered on 11/27/17at 20:15; Start at 21:00 Spironolactone (Aldactone) 50 mg DAILY PO ; Start 11/28/17 at 09:00 Sucralfate (Carafate) 1 gm QIDACHS PO Last administered on 11/27/17at 20:15; Start 11/27/17 at 16:30 Insulin Human Lispro (HumaLOG) 0-9 UNITS TIDWMEALS SQ ; Start 11/27/17 at 17:00 Dextrose (Dextrose 50%-Water Syringe) 12.5 gm PRN Q15MIN PRN IV SEE COMMENTS; Start 11/27/17 at 15:30 Hydrochlorothiazide (Microzide) 12.5 mg DAILY PO ; Start 11/28/17 at 09:00 Amlodipine Besylate (Norvasc) 10 mg DAILY PO ; Start 11/28/17 at 09:00 Aspirin (Evelina Aspirin) 325 mg 1X ONCE PO Last administered on 11/27/17at 17:52 ; Start 11/27/17 at 16:15; Stop 11/27/17 at 16:16; Status DC Metformin HCl (Glucophage) 1,000 mg BIDWMEALS PO Last administered on at 17:52; Start 11/27/17 at 17:00 Active Scripts Active Levemir Flextouch (Insulin Detemir) 100 Unit/1 Ml Insuln.pen 20 Unit SQ QHS 30 Days Reported Metformin Hcl 1,000 Mg Tablet 1,000 Mg PO BIDWMEALS Ferralet 90 Dual-Iron Tablet (Iron, Carb & Gluc/Fa/B12/C/Dss) 1 Each Tablet 1 Tab PO DAILY Reglan (Metoclopramide Hcl) 10 Mg Tablet 1 Tab PO TID PRN Sucralfate 1 Gm Tablet 1 Tab PO QIDACHS Metoprolol Succinate ( Xl ) (Metoprolol Succinate) 100 Mg Tab.er.24h 1 Tab PO DAILY Simvastatin 20 Mg Tablet 1 Tab PO QHS [place] 5-325 Tablet (Acetaminophen/Hydrocodone Bitart) 1 Each Tablet 1 Tab PO BID PRN Levothyroxine Sodium 100 Mcg Tablet 1 Tab PO DAILY05 Spironolactone 50 Mg Tablet 1 Tab PO DAILY Docusate Sodium 100 Mg Capsule 1 Cap PO DAILY Trazodone Hcl 50 Mg Tablet 50 Mg PO DAILY Omeprazole 40 Mg Capsule.dr 1 Cap PO DAILY06 Ibuprofen 800 Mg Tablet 800 Mg PO TID PRN Losartan-Hctz 100-12.5 Mg Tab (Losartan/Hydrochlorothiazide) 1 Each Tablet 1 Tab PO DAILY Amitriptyline Hcl 50 Mg Tablet 1 Tab PO QHS Ambien (Zolpidem Tartrate) 5 Mg Tablet 5 Mg PO HS PRN Potassium Chloride 20 Meq Tablet.er 20 Meq PO DAILY Protonix (Pantoprazole Sodium) 20 Mg Tablet.dr 40 Mg PO DAILYAC Amlodipine Besylate 10 Mg Tablet 10 Mg PO BID Vitals/I & O Vital Sign - Last 24 Hours 11/27/17 11/27/17 11/27/17 11/27/17 10:27 11:51 12:21 12:51 Temp 98.3 98.3 Pulse 77 72 68 72 Resp 18 20 19 18 B/P (MAP) 121/77 (92) Pulse Ox 97 96 O2 Delivery Room Air 11/27/17 11/27/17 11/27/17 11/27/17 13:21 13:37 14:33 14:39 Temp 97.5 97.5 Pulse 74 70 72 Resp 21 20 18 B/P (MAP) 106/59 (75) Pulse Ox 100 99 98 O2 Delivery Room Air Room Air 11/27/17 11/27/17 11/27/17 11/27/17 17:52 19:22 20:00 23:08 Temp 98.0 97.6 98.0 97.6 Pulse 76 85 Resp 16 16 B/P (MAP) 120/71 (87) 128/89 (102) Pulse Ox 98 97 96 O2 Delivery Room Air Room Air Room Air Room Air 11/28/17 11/28/17 03:10 07:38 Temp 97.8 97.8 97.8 97.8 Pulse 86 89 Resp 16 20 B/P (MAP) 139/81 (100) 119/72 (88) Pulse Ox 96 95 O2 Delivery Room Air Room Air Intake and Output 11/27/17 11/27/17 11/28/17 15:00 23:00 07:00 Intake Total 100 ml 340 ml Output Total 1200 ml Balance 100 ml -860 ml BOBBY ALVAREZ MD Nov 28, 2017 08:21
[2017-11-28] MEDS: PANTOPRAZOLE 40 MG TABLET.DR. PO SCH (08:42)
[2017-11-28] MEDS: LOSARTAN POTASSIUM 50 MG TABLET. PO SCH (08:42)
[2017-11-28] MEDS: FERROUS SULFATE 325 MG TABLET. PO SCH (08:42)
[2017-11-28] MEDS: metFORMIN 500 MG TABLET PO SCH ×2 (08:42→16:18)
[2017-11-28] MEDS: amLODIPine BESYLATE 10 MG TABLET PO SCH (08:43)
[2017-11-28] MEDS: METOPROLOL SUCC 24HR ER 100 MG TAB.ER.24H. PO SCH (08:43)
[2017-11-28] MEDS: SPIRONOLACTONE 25 MG TABLET PO SCH (08:43)
[2017-11-28] MEDS: hydroCHLOROthiazide 12.5 MG CAPSULE PO SCH (08:43)
[2017-11-28] MEDS: POTASSIUM CHLORIDE 20 MEQ TABLET.ER. PO SCH (08:44)
[2017-11-28] MEDS: DOCUSATE SODIUM 100 MG CAPSULE. PO SCH (08:44)
[2017-11-28] MEDS: SUCRALFATE 1 GM TABLET. PO SCH ×4 (08:47→21:07)
[2017-11-28] MEDS ORDERED: traZODone 50 MG TABLET. PO SCH (09:00)
[2017-11-28] MEDS ORDERED: methylPREDNISolone ACETATE 40 MG/ML VIAL. IM ONE (09:15)
[2017-11-28] MEDS ORDERED: BUPIVACAINE MPF 0.25% 10 ML VIAL. IJ ONE (09:15)
[2017-11-28] MEDS ORDERED: METOPROLOL TARTRATE 5 MG/5 ML VIAL. IVP PRN (10:45)
[2017-11-28 11:02] VITALS: BP 120/84
[2017-11-28] MEDS: HYDROcodone/APAP 5/325MG 1 TAB TABLET PO PRN (11:05)
--- NOTE | 2017-11-28 14:06 | EKG ---
[facility] [address] [place] [address] Test Date: 2017-11-28 Test Time: 13:47:05 Pat Name: HI CRYSTAL Department: Room: [facility] 1 Gender: F Oracle Database Consultant: LUDIVINA : 1945 Requested By: BOBBY ALVAREZ Order Number: [id number] Reading MD: David Herrera MD Measurements Intervals [place] Rate: 94 P: 22 FL: 164 QRS: -26 QRSD: 80 T: 65 QT: 348 QTc: 435 Interpretive Statements SINUS RHYTHM LAD NON-SPECIFIC ST/T CHANGES LOW VOLTAGE Electronically Signed On 12-01-2017 11:07:44 CDT by David Herrera MD
--- NOTE | 2017-11-28 15:42 | RAD ---
MRI Brain without contrast History: Right-sided weakness, near syncopal episodes Technique: Multiplanar, multisequential noncontrast MR imaging was performed of the brain. Contrast: None Comparison: October 13, 2017 Findings: There is stable cavernous malformation of the medial right temporal lobe. Ventricular size is stable, within normal limits. There is no new intra-axial mass effect, midline shift, extra-axial fluid collection, or evidence of recent infarct. Minimal T2 and FLAIR hyperintense signal abnormality of the supratentorial white matter is unchanged. There is mild ethmoid air cell and left frontal sinus as well as inferior bilateral maxillary sinus mucosal thickening. There has been lens surgery bilaterally. There is minimal patchy fluid of the inferior left mastoid air cells, very mild thickening on the right. There is preservation of the major arterial flow voids at the skull base. Impression: 1. There is no new significant intracranial abnormality is no evidence of recent infarct. Minimal T2 and FLAIR hyperintense signal abnormality of the supratentorial parenchyma is stable, probably due to chronic microvascular ischemic disease in a patient this age. There is stable cavernous malformation of the medial right temporal lobe. Electronically signed by: Baldemar Macias MD (11/28/2017 3:39 PM) [id number]
[2017-11-28] MEDS ORDERED: MORPHINE SULFATE 2 MG/ML VIAL. IM ONE (16:00)
[2017-11-28] MEDS ORDERED: MORPHINE SULFATE 2 MG/ML VIAL. IV ONE (16:30)
[2017-11-28 19:20] VITALS: BP 100/67
[2017-11-28] MEDS: SIMVASTATIN 20 MG TABLET PO SCH (21:07)
[2017-11-28] MEDS: AMITRIPTYLINE HCL 50 MG TABLET PO SCH (21:07)
[2017-11-28] MEDS: ZOLPIDEM 5 MG TABLET. PO PRN (21:09)
[2017-11-28] MEDS: INSULIN GLARGINE 300 UNITS/3 ML INSULN.PEN. SQ SCH (21:16)
[2017-11-28 23:20] VITALS: BP 98/59
--- NOTE | 2017-11-29 00:23 | CONS ---
DATE OF CONSULTATION: 11/28/2017 ATTENDING PHYSICIAN: Dr. Del Toro. The patient was seen at the request of Dr. Del Toro for rehab evaluation. HISTORY OF PRESENT ILLNESS: This is a 72-year-old female known to me. The patient was admitted on 11/27/2017 with right-sided weakness and some difficulty with slurred speech and she was evaluated for cerebrovascular accident and CT scan of the brain failed to reveal any acute abnormalities. The patient was seen by Dr. Koch and he did not see any evidence of an acute stroke. The patient was admitted at this medical center in September of this year with same left-sided numbness and hallucinations and tremors going on for about a week. The patient had extensive evaluation and no evidence of any cerebrovascular accident was noted. The patient at that time presented with diabetes mellitus with peripheral neuropathy, degenerative joints of her right knee with some pain and urinary frequency without any dysuria. ALLERGIES: THE PATIENT IS KNOWN ALLERGIC TO PROCHLORPERAZINE AND SULFA. FAMILY HISTORY: Coronary artery disease, diabetes, and hypertension. PAST MEDICAL HISTORY: Includes hypertension, pulmonary emboli, anxiety, diabetes mellitus, hypothyroidism, status post left total knee arthroplasty done by Dr. Echols in the past without any problems, cholecystectomy and hysterectomy. The patient admits pain in her right knee. PHYSICAL EXAMINATION: Today revealed an elderly female. She is alert, oriented to time, place, person and circumstance, follows commands appropriately. No obvious visual field cut or facial asymmetry noted. The patient had 4/5 to 4+/5 grade muscle strength overall. Deep tendon reflexes are absent at both ankles. She had equal perception of touch and pinprick sensation bilaterally. She had crepitus on range of motion of her right knee joint with mild knee joint effusion. She had painful range of motion on both hip joints. She had good coordination using both upper extremities. She is independent with bed mobility and transfers. Once up, she can walk at bedside for a few feet with handheld assistance. Her skin is intact at this time. ASSESSMENT: An elderly female with diabetes mellitus with peripheral neuropathy, painful degenerative joints of right knee, mild obesity, history of hypertension, pulmonary embolus, anxiety, hypothyroidism. RECOMMENDATIONS: At her request, I have injected her right knee under aseptic skin technique after skin preparation using alcohol swab with 2 mL of 0.25% Marcaine solution mixed with 1 mL of Depo-Medrol 40 mg per 1 mL solution under aseptic skin technique and she tolerated the procedure satisfactorily without any side effects. To obtain her hinged knee brace for her to use it while up, I do not see any need for any MRI scan of her brain at present time as she does not show any evidence of any new cerebrovascular accident. Home when medically stable with outpatient followup. Dr. Infante, I appreciate asking me to participate in the care of this interesting patient. I will be glad to follow her with you as needed for her rehabilitation. YOLIS MORALES MD DR: PRAKASH/jerome JOB#: [id number] / [id number] TONY Gallegos MD
[2017-11-29 03:20] VITALS: BP_SYST 112; BP_SYST 125; BP_DIAS 52; BP_DIAS 85
[2017-11-29] MEDS: LEVOTHYROXINE 100 MCG TABLET PO SCH (05:59)
[2017-11-29 07:00] VITALS: BP 114/74
--- NOTE | 2017-11-29 07:18 | PDOC ---
PROGRESS NOTES Chief Complaint Chief Complaint Right sided weakness Episodic confusion History of Present Illness History of Present Illness Patient is a 72 year old female presenting with right-sided weakness and slurred speech since 11/25/17. She states her daughter told her she was confused. Seen here 1 month ago for similar presentation with left side weakness, neg MRI at that time. Pt actually has rt knee pain, now cannot walk 2/2 pain. Seen by PMR for right knee injection with improvement. . No fever, chills, headache. Head CT neg and MRI negative. Seen by neurology. A little tachycardic with ambulation after her knee injection. EKG reviewed with non-specific t-wave flattening, no significant ST segment changes. Troponin negative, no CP or SOB. However she continued to have episodic confusion and now tachycardia and intractable nausea and vomiting overnight. A/P: AMS with mild confusion, slurry speech resolved, possible CVA symptom, could 2/ 2 early dementia with owning, likely vascular type possibly exacerbated by her knee pain - neg Head ct, defer NEURO For MRI, Recent MRI neg as well as this repeat, EEG neg. On ASA therapy and statin Hypercalcemia - 10.7 with confusion, pain will start fluids and consult nephrology rt knee pain, OA likely - improved with PMR treatment rt side weakness , subjective rt hand, rt leg 2/2 knee pain h/o abd wall cellulitis with previous Jasbir tube h/o debilitating gastroparesis with s/p J tube 04/16/17 and redone 04/22 and off now. May now be returning. CT abdomen for obstruction and consult GI h/o chronic abdominal pain with gastroparesis - returned today severely with nausea and vomiting with no good effect from reglan DM2 - sugars controlled ckd3 - Stable obesity 34.5 BMI - weight loss counseled depression - euthymic now htn, controlled - on norvasc hypothyroidism, TSH 99 2017 multiple abd sx history Hyperlipemia - on statin GERD - on PPI Vitals Vitals Vital Signs Date Time Temp Pulse Resp B/P (MAP) Pulse Ox O2 Delivery O2 Flow Rate FiO2 11/29/17 03:20 97.9 101 18 125/85 (98) 96 Room Air 97.9 Physical Exam General: Alert, Cooperative Heart: Normal S1, Normal S2, Other (tachycardic) Lungs: Clear, Other Abdomen: Normal bowel sounds Extremities: No edema, Normal pulses Skin: No rashes, No breakdown Labs LABS Laboratory Tests Test 11/28/17 11:47 11/28/17 17:01 11/28/17 20:22 Glucose (Fingerstick) 162 mg/dL (70-99) 187 mg/dL (70-99) 165 mg/dL (70-99) Assessment and Plan Assessmemt and Plan Problems Medical Problems: (1) Right sided weakness Status: Acute Comment Review of Relevant I have reviewed the following items mert (where applicable) has been applied. Labs Laboratory Tests Test 11/27/17 10:28 11/27/17 11:30 11/27/17 13:15 11/27/17 16:56 Glucose (Fingerstick) 266 mg/dL (70-99) 136 mg/dL (70-99) White Blood Count 7.7 x10^3/uL (4.0-11.0) Red Blood Count 4.66 x10^6/uL (3.50-5.40) Hemoglobin 12.4 g/dL (12.0-15.5) Hematocrit 37.7 % (36.0-47.0) Mean Corpuscular Volume 81 fL (79-100) Mean Corpuscular Hemoglobin 27 pg (25-35) Mean Corpuscular Hemoglobin Concent 33 g/dL (31-37) Red Cell Distribution Width 22.1 % (11.5-14.5) Platelet Count 211 x10^3/uL (140-400) Neutrophils (%) (Auto) 64 % (31-73) Lymphocytes (%) (Auto) 27 % (24-48) Monocytes (%) (Auto) 6 % (0-9) Eosinophils (%) (Auto) 2 % (0-3) Basophils (%) (Auto) 1 % (0-3) Neutrophils # (Auto) 4.9 x10^3uL (1.8-7.7) Lymphocytes # (Auto) 2.1 x10^3/uL (1.0-4.8) Monocytes # (Auto) 0.5 x10^3/uL (0.0-1.1) Eosinophils # (Auto) 0.1 x10^3/uL (0.0-0.7) Basophils # (Auto) 0.1 x10^3/uL (0.0-0.2) Platelet Estimate Adequate (ADEQUATE) Large Platelets Few Poikilocytosis Present Anisocytosis Slight Target Cells Present Ovalocytes Present Prothrombin Time 12.3 SEC (11.7-14.0) Prothromb Time International Ratio 1.0 (0.8-1.1) Sodium Level 136 mmol/L (136-145) Potassium Level 4.4 mmol/L (3.5-5.1) Chloride Level 99 mmol/L (98-107) Carbon Dioxide Level 24 mmol/L (21-32) Anion Gap 13 (6-14) Blood Urea Nitrogen 25 mg/dL (7-20) Creatinine 1.4 mg/dL (0.6-1.0) Estimated GFR (Cockcroft-Gault) 45.0 BUN/Creatinine Ratio 18 (6-20) Glucose Level 262 mg/dL (70-99) Calcium Level 10.5 mg/dL (8.5-10.1) Total Bilirubin 0.3 mg/dL (0.2-1.0) Aspartate Amino Transf (AST/SGOT) 19 U/L (15-37) Alanine Aminotransferase (ALT/SGPT) 17 U/L (14-59) Alkaline Phosphatase 70 U/L (46-116) Troponin I Quantitative < 0.017 ng/mL (0.000-0.055) Total Protein 8.6 g/dL (6.4-8.2) Albumin 4.0 g/dL (3.4-5.0) Albumin/Globulin Ratio 0.9 (1.0-1.7) Ethyl Alcohol Level < 10 mg/dL (0-10) Urine Collection Type Unknown Urine Color Yellow Urine Clarity Clear Urine pH 5.5 Urine Specific [place] 1.015 Urine Protein Negative mg/dL (NEG-TRACE) Urine Glucose (UA) 500 mg/dL (NEG) Urine Ketones (Stick) Negative mg/dL (NEG) Urine Blood Negative (NEG) Urine Nitrite Positive (NEG) Urine Bilirubin Negative (NEG) Urine Urobilinogen Dipstick 0.2 mg/dL (0.2 mg/dL) Urine Leukocyte Esterase Small (NEG) Urine RBC 0 /HPF (0-2) Urine WBC 20-40 /HPF (0-4) Urine Squamous Epithelial Cells Mod /LPF Urine Bacteria Many /HPF (0-FEW) Urine Hyaline Casts Few /HPF Urine Mucus Slight /LPF Urine Opiates Screen Pos (NEG) Urine Methadone Screen Neg (NEG) Urine Barbiturates Neg (NEG) Urine Phencyclidine Screen Neg (NEG) Urine Amphetamine/Methamphetamine Neg (NEG) Urine Benzodiazepines Screen Pos (NEG) Urine Cocaine Screen Neg (NEG) Urine Cannabinoids Screen Neg (NEG) Urine Ethyl Alcohol Neg (NEG) Test 11/27/17 20:17 11/28/17 04:40 11/28/17 07:10 11/28/17 11:47 Glucose (Fingerstick) 157 mg/dL (70-99) 125 mg/dL (70-99) 162 mg/dL (70-99) 25-Hydroxy Vitamin D Total 12.4 ng/mL (30-100) Test 11/28/17 17:01 11/28/17 20:22 Glucose (Fingerstick) 187 mg/dL (70-99) 165 mg/dL (70-99) Laboratory Tests Test 11/28/17 11:47 11/28/17 17:01 11/28/17 20:22 Glucose (Fingerstick) 162 mg/dL (70-99) 187 mg/dL (70-99) 165 mg/dL (70-99) Medications Current Medications Influenza Virus Vaccine (Afluria Trivalent [id number] Syringe) 0.5 ml ONCE ONCE VAX IM Last administered on 11/27/17at 17:55; Start 11/27/17 at 17:00; Stop 11/27/17 at 17:01; Status DC Amitriptyline HCl (Elavil) 50 mg QHS PO Last administered on 11/28/17at 21:07; Start 11/27/17 at 21:00 Amlodipine Besylate (Norvasc) 10 mg BID PO ; Start 11/27/17 at 21:00; Stop 11/27 at 21:00; Status DC Docusate Sodium (Colace) 100 mg DAILY PO Last administered on 11/28/17at 08:44; Start 11/28/17 at 09:00 Acetaminophen/ Hydrocodone Bitart (Lortab 5/325) 1 tab PRN BID PRN PO MODERATE PAIN Last administered on 11/28/17at 11:05; Start 11/27/17 at 15:30 Levothyroxine Sodium (Synthroid) 100 mcg DAILY05 PO Last administered on at 05:59; Start 11/28/17 at 05:00 Metoclopramide HCl (Reglan) 10 mg PRN TID PRN PO NAUSEA; Start 11/27/17 at 15: 30 Metoprolol Succinate (Toprol Xl) 100 mg DAILY PO Last administered on 08:43; Start 11/28/17 at 09:00 Trazodone HCl (Desyrel) 50 mg DAILY PO Last administered on 11/28/17 08:44; Start 11/28/17 at 09:00 Zolpidem Tartrate (Ambien) 5 mg PRN QHS PRN PO INSOMNIA Last administered on 21:09; Start 11/27/17 at 15:30 Insulin Glargine (Lantus) 20 units QHS SQ Last administered on 11/28/17 21:16 ; Start 11/27/17 at 21:00 Ferrous Sulfate (Feosol) 325 mg DAILYWBKFT PO Last administered on 11/28/17 08 :42; Start 11/28/17 at 08:00 Losartan Potassium (Cozaar) 100 mg DAILY PO Last administered on 11/28/17 08: 42; Start 11/28/17 at 09:00 Metformin HCl (Glucophage) 1,000 mg BIDWMEALS PO ; Start 11/27/17 at 17:00; Stop 11/27/17 at 17:00; Status DC Non-Formulary Medication (Omeprazole ) 1 cap DAILY06 PO ; Start 11/28/17 at 06: 00; Stop 11/28/17 at 06:00; Status DC Pantoprazole Sodium (Protonix) 40 mg DAILYAC PO Last administered on 11/28/17 08:42; Start 11/28/17 at 07:30 Potassium Chloride (Klor-Con) 20 meq DAILYWBKFT PO Last administered on 08:44; Start 11/28/17 at 08:00 Simvastatin (Zocor) 20 mg HS PO Last administered on 11/28/17 21:07; Start at 21:00 Spironolactone (Aldactone) 50 mg DAILY PO Last administered on 11/28/17 08:43 ; Start 11/28/17 at 09:00 Sucralfate (Carafate) 1 gm QIDACHS PO Last administered on 11/28/17at 21:07; Start 11/27/17 at 16:30 Insulin Human Lispro (HumaLOG) 0-9 UNITS TIDWMEALS SQ Last administered on 11/28at 17:43; Start 11/27/17 at 17:00 Dextrose (Dextrose 50%-Water Syringe) 12.5 gm PRN Q15MIN PRN IV SEE COMMENTS; Start 11/27/17 at 15:30 Hydrochlorothiazide (Microzide) 12.5 mg DAILY PO Last administered on at 08:43; Start 11/28/17 at 09:00 Amlodipine Besylate (Norvasc) 10 mg DAILY PO Last administered on 11/28/17 08: 43; Start 11/28/17 at 09:00 Aspirin (Evelina Aspirin) 325 mg 1X ONCE PO Last administered on 11/27/17at 17:52 ; Start 11/27/17 at 16:15; Stop 11/27/17 at 16:16; Status DC Metformin HCl (Glucophage) 1,000 mg BIDWMEALS PO Last administered on at 16:18; Start 11/27/17 at 17:00 Methylprednisolone Acetate (DEPO-Medrol 40MG VIAL) 40 mg 1X ONCE IM Last administered on 11/28/17at 09:15; Start 11/28/17 at 09:15; Stop 11/28/17 at 09:16 ; Status DC Bupivacaine HCl (Sensorcaine-Mpf 0.25%) 10 ml 1X ONCE IJ Last administered on 11/28/17at 09:15; Start 11/28/17 at 09:15; Stop 11/28/17 at 09:16; Status DC Metoprolol Tartrate (Lopressor Vial) 2.5 mg PRN Q3HRS PRN IVP HYPERTENSION, SEE COMMENTS; Start 11/28/17 at 10:45 Morphine Sulfate (Morphine Sulfate) 2 mg 1X ONCE IM ; Start 11/28/17 at 16:00; Stop 11/28/17 at 16:20; Status DC Morphine Sulfate (Morphine Sulfate) 2 mg 1X ONCE IV Last administered on at 16:22; Start 11/28/17 at 16:30; Stop 11/28/17 at 16:31; Status DC Vitamin D (Vitamin D3) 5,000 unit DAILY PO ; Start 11/29/17 at 09:00 Active Scripts Active Levemir Flextouch (Insulin Detemir) 100 Unit/1 Ml Insuln.pen 20 Unit SQ QHS 30 Days Reported Metformin Hcl 1,000 Mg Tablet 1,000 Mg PO BIDWMEALS Ferralet 90 Dual-Iron Tablet (Iron, Carb & Gluc/Fa/B12/C/Dss) 1 Each Tablet 1 Tab PO DAILY Reglan (Metoclopramide Hcl) 10 Mg Tablet 1 Tab PO TID PRN Sucralfate 1 Gm Tablet 1 Tab PO QIDACHS Metoprolol Succinate ( Xl ) (Metoprolol Succinate) 100 Mg Tab.er.24h 1 Tab PO DAILY Simvastatin 20 Mg Tablet 1 Tab PO QHS [place] 5-325 Tablet (Acetaminophen/Hydrocodone Bitart) 1 Each Tablet 1 Tab PO BID PRN Levothyroxine Sodium 100 Mcg Tablet 1 Tab PO DAILY05 Spironolactone 50 Mg Tablet 1 Tab PO DAILY Docusate Sodium 100 Mg Capsule 1 Cap PO DAILY Trazodone Hcl 50 Mg Tablet 50 Mg PO DAILY Omeprazole 40 Mg Capsule.dr 1 Cap PO DAILY06 Ibuprofen 800 Mg Tablet 800 Mg PO TID PRN Losartan-Hctz 100-12.5 Mg Tab (Losartan/Hydrochlorothiazide) 1 Each Tablet 1 Tab PO DAILY Amitriptyline Hcl 50 Mg Tablet 1 Tab PO QHS Ambien (Zolpidem Tartrate) 5 Mg Tablet 5 Mg PO HS PRN Potassium Chloride 20 Meq Tablet.er 20 Meq PO DAILY Protonix (Pantoprazole Sodium) 20 Mg Tablet.dr 40 Mg PO DAILYAC Amlodipine Besylate 10 Mg Tablet 10 Mg PO BID Vitals/I & O Vital Sign - Last 24 Hours 11/28/17 11/28/17 11/28/17 11/28/17 07:38 08:00 08:42 08:43 Temp 97.8 97.8 Pulse 89 89 89 Resp 20 B/P (MAP) 119/72 (88) 119/72 119/72 Pulse Ox 95 O2 Delivery Room Air Room Air 11/28/17 11/28/17 11/28/17 11/28/17 08:43 11:02 19:20 20:00 Temp 97.9 98.2 97.9 98.2 Pulse 89 103 102 Resp 20 18 B/P (MAP) 119/72 120/84 (96) 100/67 (78) Pulse Ox 100 95 O2 Delivery Room Air Room Air Room Air 11/28/17 11/29/17 23:20 03:20 Temp 98.2 97.9 98.2 97.9 Pulse 100 101 Resp 18 18 B/P (MAP) 98/59 (72) 125/85 (98) Pulse Ox 95 96 O2 Delivery Room Air Room Air Intake and Output 11/28/17 11/28/17 11/29/17 15:00 23:00 07:00 Intake Total 500 ml 0 ml Balance 500 ml 0 ml BOBBY ALVAREZ MD Nov 29, 2017 07:18
[2017-11-29] MEDS: PANTOPRAZOLE 40 MG TABLET.DR. PO SCH ×2 (07:30→08:26)
[2017-11-29] MEDS: SUCRALFATE 1 GM TABLET. PO SCH ×5 (07:30→21:07)
[2017-11-29] MEDS: INSULIN LISPRO 300 UNITS/3 ML INSULN.PEN. SQ SCH ×3 (08:00→16:46)
[2017-11-29] MEDS: FERROUS SULFATE 325 MG TABLET. PO SCH ×2 (08:00→08:25)
[2017-11-29] MEDS: metFORMIN 500 MG TABLET PO SCH ×2 (08:00→08:28)
[2017-11-29] MEDS: POTASSIUM CHLORIDE 20 MEQ TABLET.ER. PO SCH ×2 (08:00→08:32)
[2017-11-29] MEDS: SPIRONOLACTONE 25 MG TABLET PO SCH ×2 (08:24→09:00)
[2017-11-29] MEDS: CHOLECALCIFEROL (VITAMIN D3) 5,000 UNIT CAPSULE PO SCH ×2 (08:25→09:00)
[2017-11-29] MEDS: hydroCHLOROthiazide 12.5 MG CAPSULE PO SCH ×2 (08:25→09:00)
[2017-11-29] MEDS: DOCUSATE SODIUM 100 MG CAPSULE. PO SCH ×2 (08:25→09:00)
[2017-11-29] MEDS: LOSARTAN POTASSIUM 50 MG TABLET. PO SCH ×2 (08:26→09:00)
[2017-11-29] MEDS: METOPROLOL SUCC 24HR ER 100 MG TAB.ER.24H. PO SCH ×2 (08:27→09:00)
[2017-11-29] MEDS: amLODIPine BESYLATE 10 MG TABLET PO SCH ×2 (08:28→09:00)
[2017-11-29] MEDS: METOCLOPRAMIDE 10 MG TABLET. PO PRN ×2 (08:40→20:15)
[2017-11-29] MEDS: HYDROcodone/APAP 5/325MG 1 TAB TABLET PO PRN (08:50)
[2017-11-29] MEDS: ONDANSETRON PF 4 MG/2 ML VIAL. IV PRN ×3 (10:24→20:14)
--- NOTE | 2017-11-29 10:49 | PDOC ---
PROGRESS NOTES Subjective Subjective She c/o nausea and vomiting and lower abdominal pain. She had a small bowel movement and passing gases. Objective Objective Vital Signs Date Time Temp Pulse Resp B/P (MAP) Pulse Ox O2 Delivery O2 Flow Rate FiO2 11/29/17 08:50 97 Room Air 11/29/17 08:28 108 114/74 11/29/17 07:00 98.1 18 98.1 Intake and Output 11/29/17 07:00 Intake Total 500 ml Balance 500 ml Intake Oral 500 ml # Voids 3 Physical Exam Physical Exam She is alert and walking with roller walker without any pain in her right knee. She denies any dysuria. Assessment Assessment Problems Medical Problems: (1) Right sided weakness Status: Acute Plan Plan of Care To obtain KUB and to let social service help her with discharge plans as her daughter wants her to go to a NH but she wants to go home. Comment Review of Relevant I have reviewed the following items mert (where applicable) has been applied. Labs Laboratory Tests Test 11/27/17 11:30 11/27/17 13:15 11/27/17 16:56 11/27/17 20:17 White Blood Count 7.7 x10^3/uL (4.0-11.0) Red Blood Count 4.66 x10^6/uL (3.50-5.40) Hemoglobin 12.4 g/dL (12.0-15.5) Hematocrit 37.7 % (36.0-47.0) Mean Corpuscular Volume 81 fL (79-100) Mean Corpuscular Hemoglobin 27 pg (25-35) Mean Corpuscular Hemoglobin Concent 33 g/dL (31-37) Red Cell Distribution Width 22.1 % (11.5-14.5) Platelet Count 211 x10^3/uL (140-400) Neutrophils (%) (Auto) 64 % (31-73) Lymphocytes (%) (Auto) 27 % (24-48) Monocytes (%) (Auto) 6 % (0-9) Eosinophils (%) (Auto) 2 % (0-3) Basophils (%) (Auto) 1 % (0-3) Neutrophils # (Auto) 4.9 x10^3uL (1.8-7.7) Lymphocytes # (Auto) 2.1 x10^3/uL (1.0-4.8) Monocytes # (Auto) 0.5 x10^3/uL (0.0-1.1) Eosinophils # (Auto) 0.1 x10^3/uL (0.0-0.7) Basophils # (Auto) 0.1 x10^3/uL (0.0-0.2) Platelet Estimate Adequate (ADEQUATE) Large Platelets Few Poikilocytosis Present Anisocytosis Slight Target Cells Present Ovalocytes Present Prothrombin Time 12.3 SEC (11.7-14.0) Prothromb Time International Ratio 1.0 (0.8-1.1) Sodium Level 136 mmol/L (136-145) Potassium Level 4.4 mmol/L (3.5-5.1) Chloride Level 99 mmol/L (98-107) Carbon Dioxide Level 24 mmol/L (21-32) Anion Gap 13 (6-14) Blood Urea Nitrogen 25 mg/dL (7-20) Creatinine 1.4 mg/dL (0.6-1.0) Estimated GFR (Cockcroft-Gault) 45.0 BUN/Creatinine Ratio 18 (6-20) Glucose Level 262 mg/dL (70-99) Calcium Level 10.5 mg/dL (8.5-10.1) Total Bilirubin 0.3 mg/dL (0.2-1.0) Aspartate Amino Transf (AST/SGOT) 19 U/L (15-37) Alanine Aminotransferase (ALT/SGPT) 17 U/L (14-59) Alkaline Phosphatase 70 U/L (46-116) Troponin I Quantitative < 0.017 ng/mL (0.000-0.055) Total Protein 8.6 g/dL (6.4-8.2) Albumin 4.0 g/dL (3.4-5.0) Albumin/Globulin Ratio 0.9 (1.0-1.7) Ethyl Alcohol Level < 10 mg/dL (0-10) Urine Collection Type Unknown Urine Color Yellow Urine Clarity Clear Urine pH 5.5 Urine Specific [place] 1.015 Urine Protein Negative mg/dL (NEG-TRACE) Urine Glucose (UA) 500 mg/dL (NEG) Urine Ketones (Stick) Negative mg/dL (NEG) Urine Blood Negative (NEG) Urine Nitrite Positive (NEG) Urine Bilirubin Negative (NEG) Urine Urobilinogen Dipstick 0.2 mg/dL (0.2 mg/dL) Urine Leukocyte Esterase Small (NEG) Urine RBC 0 /HPF (0-2) Urine WBC 20-40 /HPF (0-4) Urine Squamous Epithelial Cells Mod /LPF Urine Bacteria Many /HPF (0-FEW) Urine Hyaline Casts Few /HPF Urine Mucus Slight /LPF Urine Opiates Screen Pos (NEG) Urine Methadone Screen Neg (NEG) Urine Barbiturates Neg (NEG) Urine Phencyclidine Screen Neg (NEG) Urine Amphetamine/Methamphetamine Neg (NEG) Urine Benzodiazepines Screen Pos (NEG) Urine Cocaine Screen Neg (NEG) Urine Cannabinoids Screen Neg (NEG) Urine Ethyl Alcohol Neg (NEG) Glucose (Fingerstick) 136 mg/dL (70-99) 157 mg/dL (70-99) Test 11/28/17 04:40 11/28/17 07:10 11/28/17 11:47 11/28/17 17:01 25-Hydroxy Vitamin D Total 12.4 ng/mL (30-100) Glucose (Fingerstick) 125 mg/dL (70-99) 162 mg/dL (70-99) 187 mg/dL (70-99) Test 11/28/17 20:22 11/29/17 07:41 Glucose (Fingerstick) 165 mg/dL (70-99) 180 mg/dL (70-99) Laboratory Tests Test 11/28/17 11:47 11/28/17 17:01 11/28/17 20:22 11/29/17 07:41 Glucose (Fingerstick) 162 mg/dL (70-99) 187 mg/dL (70-99) 165 mg/dL (70-99) 180 mg/dL (70-99) Medications Current Medications Influenza Virus Vaccine (Afluria Trivalent [id number] Syringe) 0.5 ml ONCE ONCE VAX IM Last administered on 11/27/17at 17:55; Start 11/27/17 at 17:00; Stop 11/27/17 at 17:01; Status DC Amitriptyline HCl (Elavil) 50 mg QHS PO Last administered on 11/28/17at 21:07; Start 11/27/17 at 21:00 Amlodipine Besylate (Norvasc) 10 mg BID PO ; Start 11/27/17 at 21:00; Stop 11/27 at 21:00; Status DC Docusate Sodium (Colace) 100 mg DAILY PO Last administered on 11/29/17 08:25; Start 11/28/17 at 09:00 Acetaminophen/ Hydrocodone Bitart (Lortab 5/325) 1 tab PRN BID PRN PO MODERATE PAIN Last administered on 11/29/17 08:50; Start 11/27/17 at 15:30 Levothyroxine Sodium (Synthroid) 100 mcg DAILY05 PO Last administered on 05:59; Start 11/28/17 at 05:00 Metoclopramide HCl (Reglan) 10 mg PRN TID PRN PO NAUSEA Last administered on 08:40; Start 11/27/17 at 15:30 Metoprolol Succinate (Toprol Xl) 100 mg DAILY PO Last administered on 08:27; Start 11/28/17 at 09:00 Trazodone HCl (Desyrel) 50 mg DAILY PO Last administered on 11/28/17 08:44; Start 11/28/17 at 09:00; Stop 11/29/17 at 08:54; Status DC Zolpidem Tartrate (Ambien) 5 mg PRN QHS PRN PO INSOMNIA Last administered on 21:09; Start 11/27/17 at 15:30 Insulin Glargine (Lantus) 20 units QHS SQ Last administered on 11/28/17 21:16 ; Start 11/27/17 at 21:00 Ferrous Sulfate (Feosol) 325 mg DAILYWBKFT PO Last administered on 11/29/17 08 :25; Start 11/28/17 at 08:00 Losartan Potassium (Cozaar) 100 mg DAILY PO Last administered on 11/29/17 08: 26; Start 11/28/17 at 09:00 Metformin HCl (Glucophage) 1,000 mg BIDWMEALS PO ; Start 11/27/17 at 17:00; Stop 11/27/17 at 17:00; Status DC Non-Formulary Medication (Omeprazole ) 1 cap DAILY06 PO ; Start 11/28/17 at 06: 00; Stop 11/28/17 at 06:00; Status DC Pantoprazole Sodium (Protonix) 40 mg DAILYAC PO Last administered on 11/29/17 08:26; Start 11/28/17 at 07:30 Potassium Chloride (Klor-Con) 20 meq DAILYWBKFT PO Last administered on at 08:32; Start 11/28/17 at 08:00 Simvastatin (Zocor) 20 mg HS PO Last administered on 11/28/17 21:07; Start at 21:00 Spironolactone (Aldactone) 50 mg DAILY PO Last administered on 11/29/17 08:24 ; Start 11/28/17 at 09:00 Sucralfate (Carafate) 1 gm QIDACHS PO Last administered on 11/29/17 08:25; Start 11/27/17 at 16:30 Insulin Human Lispro (HumaLOG) 0-9 UNITS TIDWMEALS SQ Last administered on 11/28at 17:43; Start 11/27/17 at 17:00 Dextrose (Dextrose 50%-Water Syringe) 12.5 gm PRN Q15MIN PRN IV SEE COMMENTS; Start 11/27/17 at 15:30 Hydrochlorothiazide (Microzide) 12.5 mg DAILY PO Last administered on 08:25; Start 11/28/17 at 09:00 Amlodipine Besylate (Norvasc) 10 mg DAILY PO Last administered on 11/29/17 08: 28; Start 11/28/17 at 09:00 Aspirin (Evelina Aspirin) 325 mg 1X ONCE PO Last administered on 11/27/17at 17:52 ; Start 11/27/17 at 16:15; Stop 11/27/17 at 16:16; Status DC Metformin HCl (Glucophage) 1,000 mg BIDWMEALS PO Last administered on 08:28; Start 11/27/17 at 17:00 Methylprednisolone Acetate (DEPO-Medrol 40MG VIAL) 40 mg 1X ONCE IM Last administered on 11/28/17 09:15; Start 11/28/17 at 09:15; Stop 11/28/17 at 09:16 ; Status DC Bupivacaine HCl (Sensorcaine-Mpf 0.25%) 10 ml 1X ONCE IJ Last administered on 11/28/17at 09:15; Start 11/28/17 at 09:15; Stop 11/28/17 at 09:16; Status DC Metoprolol Tartrate (Lopressor Vial) 2.5 mg PRN Q3HRS PRN IVP HYPERTENSION, SEE COMMENTS; Start 11/28/17 at 10:45 Morphine Sulfate (Morphine Sulfate) 2 mg 1X ONCE IM ; Start 11/28/17 at 16:00; Stop 11/28/17 at 16:20; Status DC Morphine Sulfate (Morphine Sulfate) 2 mg 1X ONCE IV Last administered on at 16:22; Start 11/28/17 at 16:30; Stop 11/28/17 at 16:31; Status DC Vitamin D (Vitamin D3) 5,000 unit DAILY PO Last administered on 11/29/17at 08:25 ; Start 11/29/17 at 09:00 Trazodone HCl (Desyrel) 50 mg QHS PO ; Start 11/29/17 at 21:00 Ondansetron HCl (Zofran) 4 mg PRN Q6HRS PRN IV NAUSEA/VOMITING Last administered on 11/29/17at 10:24; Start 11/29/17 at 10:15 Active Scripts Active Levemir Flextouch (Insulin Detemir) 100 Unit/1 Ml Insuln.pen 20 Unit SQ QHS 30 Days Reported Metformin Hcl 1,000 Mg Tablet 1,000 Mg PO BIDWMEALS Ferralet 90 Dual-Iron Tablet (Iron, Carb & Gluc/Fa/B12/C/Dss) 1 Each Tablet 1 Tab PO DAILY Reglan (Metoclopramide Hcl) 10 Mg Tablet 1 Tab PO TID PRN Sucralfate 1 Gm Tablet 1 Tab PO QIDACHS Metoprolol Succinate ( Xl ) (Metoprolol Succinate) 100 Mg Tab.er.24h 1 Tab PO DAILY Simvastatin 20 Mg Tablet 1 Tab PO QHS [place] 5-325 Tablet (Acetaminophen/Hydrocodone Bitart) 1 Each Tablet 1 Tab PO BID PRN Levothyroxine Sodium 100 Mcg Tablet 1 Tab PO DAILY05 Spironolactone 50 Mg Tablet 1 Tab PO DAILY Docusate Sodium 100 Mg Capsule 1 Cap PO DAILY Trazodone Hcl 50 Mg Tablet 50 Mg PO QHS Omeprazole 40 Mg Capsule.dr 1 Cap PO DAILY06 Ibuprofen 800 Mg Tablet 800 Mg PO TID PRN Losartan-Hctz 100-12.5 Mg Tab (Losartan/Hydrochlorothiazide) 1 Each Tablet 1 Tab PO DAILY Amitriptyline Hcl 50 Mg Tablet 1 Tab PO QHS Ambien (Zolpidem Tartrate) 5 Mg Tablet 5 Mg PO HS PRN Potassium Chloride 20 Meq Tablet.er 20 Meq PO DAILY Protonix (Pantoprazole Sodium) 20 Mg Tablet.dr 40 Mg PO DAILYAC Amlodipine Besylate 10 Mg Tablet 10 Mg PO BID Vitals/I & O Vital Sign - Last 24 Hours 11/28/17 11/28/17 11/28/17 11/28/17 11:02 19:20 20:00 23:20 Temp 97.9 98.2 98.2 97.9 98.2 98.2 Pulse 103 102 100 Resp 18 B/P (MAP) 120/84 (96) 100/67 (78) 98/59 (72) Pulse Ox 100 95 95 O2 Delivery Room Air Room Air Room Air Room Air 11/29/17 11/29/17 11/29/17 11/29/17 03:20 07:00 08:26 08:27 Temp 97.9 98.1 97.9 98.1 Pulse 101 108 108 108 Resp 18 B/P (MAP) 125/85 (98) 114/74 (87) 114/74 114/74 Pulse Ox 96 97 O2 Delivery Room Air Room Air 11/29/17 11/29/17 08:28 08:50 Pulse 108 B/P (MAP) 114/74 Pulse Ox 97 O2 Delivery Room Air Intake and Output 11/28/17 11/28/17 11/29/17 15:00 23:00 07:00 Intake Total 500 ml 0 ml Balance 500 ml 0 ml YOLIS MORALES MD Nov 29, 2017 10:49
[2017-11-29 11:00] VITALS: BP_SYST 111; BP_SYST 136; BP_DIAS 44; BP_DIAS 86
--- NOTE | 2017-11-29 11:17 | RAD ---
EXAM: Abdomen one view. HISTORY: Nausea. COMPARISON: None. FINDINGS: A frontal view of the abdomen is obtained. There are no distended small bowel loops. There is gas distally. Stool throughout the colon is consistent with constipation. There is a [id number] thoracolumbar levoscoliosis. There are moderate to severe degenerative changes throughout the lumbar spine. IMPRESSION: 1. Correlate for constipation. No evidence of obstruction. Electronically signed by: Joyce Garcia MD (11/29/2017 11:14 AM) [facility]
[2017-11-29] MEDS ORDERED: LACTULOSE 20 GM/30 ML SOLUTION. PO PRN (12:15)
[2017-11-29] MEDS: METOCLOPRAMIDE HCL 10 MG/2 ML VIAL. IV PRN ×2 (12:20→20:14)
[2017-11-29 12:32] LABS: BASO % 0 % (0-3); EOS % 0 % (0-3); HEMATOCRIT 36.9 % (36.0-47.0); HEMOGLOBIN 12.6 g/dL (12.0-15.5); LYMPH # 2.2 x10^3/uL (1.0-4.8); LYMPH % 14 % (24-48); MEAN CORPUSCULAR HEMOGLOBIN 27 pg (25-35); MEAN CORPUSCULAR HGB CONC 34 g/dL (31-37); MEAN CORPUSCULAR VOLUME 80 fL (79-100); MONO % 6 % (0-9); NEUT # 12.8 x10^3uL (1.8-7.7); NEUT % 80 % (31-73); PLATELET COUNT 250 x10^3/uL (140-400); RED BLOOD COUNT 4.61 x10^6/uL (3.50-5.40); RED CELL DISTRIBUTION WIDTH 21.8 % (11.5-14.5)
[2017-11-29 12:39] LABS: CALCIUM 10.7 mg/dL (8.5-10.1); CREATININE 1.2 mg/dL (0.6-1.0); GFR 53.7; PHOSPHORUS 3.2 mg/dL (2.6-4.7); POTASSIUM 3.9 mmol/L (3.5-5.1)
[2017-11-29 12:56] LABS: % LYMPHS 10 % (24-48); % MONOS 5 % (0-10); % SEGS 85 % (35-66); ANISOCYTOSIS MOD; PLT ESTIMATE ADEQUATE (ADEQUATE)
[2017-11-29 15:00] VITALS: BP 146/90
--- NOTE | 2017-11-29 16:16 | RAD ---
EXAM: Abdomen and pelvis CT without intravenous contrast. HISTORY: Pain and vomiting. TECHNIQUE: Computed tomographic images of the abdomen and pelvis were obtained without contrast. Multiplanar reformatting was performed. *One or more of the following individualized dose reduction techniques were utilized for this examination: 1. Automated exposure control. 2. Adjustment of the mA and/or kV according to patient size. 3. Use of iterative reconstruction technique. COMPARISON: 05/25/2017. FINDINGS: Evaluation of the lower thorax demonstrates bilateral lower lobe atelectasis. There is cardiomegaly. There is a tiny hiatal hernia. There is stable nodularity within the inferior 6:00 position of the right breast. No focal hepatic lesion is seen. The gallbladder is surgically absent. No pancreatic lesion is seen. The spleen and adrenal glands are unremarkable. There are multiple bilateral renal cysts, the largest of which measures 2.8 cm on the right. There is no clear obstructive uropathy. There is no nephroureterolithiasis. The bladder is unremarkable. There is no appendicitis. There is no bowel obstruction. There is distal colonic diverticulosis without diverticulitis. The uterus is surgically absent. There is scarring and postoperative change along the left and mid ventral abdominal wall. There is no lymphadenopathy. There are degenerative changes throughout the spine. There is no suspicious osseous lesion. IMPRESSION: 1. Distal colonic diverticulosis without diverticulitis. 2. Multiple bilateral renal cysts. 3. Scarring within the ventral abdominal wall. Electronically signed by: Alexsandra Bernard MD (11/29/2017 4:13 PM) [facility]
[2017-11-29] MEDS: METOPROLOL TARTRATE 5 MG/5 ML VIAL. IVP SCH ×2 (16:34→20:15)
[2017-11-29 19:40] VITALS: BP 155/123
[2017-11-29] MEDS: ZOLPIDEM 5 MG TABLET. PO PRN (20:15)
[2017-11-29] MEDS: traZODone 50 MG TABLET. PO SCH (20:15)
[2017-11-29] MEDS: AMITRIPTYLINE HCL 50 MG TABLET PO SCH (21:07)
[2017-11-29] MEDS: SIMVASTATIN 20 MG TABLET PO SCH (21:07)
[2017-11-29] MEDS: INSULIN GLARGINE 300 UNITS/3 ML INSULN.PEN. SQ SCH (21:09)
[2017-11-29 23:46] VITALS: BP 155/93
[2017-11-30] MEDS: METOCLOPRAMIDE HCL 10 MG/2 ML VIAL. IV PRN ×3 (01:09→16:44)
[2017-11-30] MEDS: METOPROLOL TARTRATE 5 MG/5 ML VIAL. IVP SCH ×6 (01:09→20:45)
[2017-11-30] MEDS: ONDANSETRON PF 4 MG/2 ML VIAL. IV PRN ×3 (01:09→16:44)
[2017-11-30 03:35] VITALS: BP 147/92
[2017-11-30] MEDS: METOCLOPRAMIDE 10 MG TABLET. PO PRN (04:07)
[2017-11-30] MEDS: LEVOTHYROXINE 100 MCG TABLET PO SCH (04:07)
[2017-11-30 07:00] VITALS: BP 157/96
[2017-11-30] MEDS: PANTOPRAZOLE 40 MG TABLET.DR. PO SCH (07:30)
[2017-11-30] MEDS: SUCRALFATE 1 GM TABLET. PO SCH ×4 (07:30→20:44)
[2017-11-30] MEDS: INSULIN LISPRO 300 UNITS/3 ML INSULN.PEN. SQ SCH ×3 (07:54→17:00)
--- NOTE | 2017-11-30 07:54 | PDOC ---
PROGRESS NOTES Chief Complaint Chief Complaint Right sided weakness Episodic confusion History of Present Illness History of Present Illness Patient is a 72 year old female presenting with right-sided weakness and slurred speech since 11/25/17. She states her daughter told her she was confused. Seen here 1 month ago for similar presentation with left side weakness, neg MRI at that time. Pt actually has rt knee pain, now cannot walk 2/2 pain. Seen by PMR for right knee injection with improvement. . No fever, chills, headache. Head CT neg and MRI negative. Seen by neurology. A little tachycardic with ambulation after her knee injection. EKG reviewed with non-specific t-wave flattening, no significant ST segment changes. Troponin negative, no CP or SOB. However she continued to have episodic confusion and now tachycardia and intractable nausea and vomiting overnight again for 2nd day in a row. Calcium level up to 10.7, fluids restarted. Still with vomiting despite reglan, zofran and GI consultation. CT shows no obstruction. She just wants relief of her nausea and vomiting. Confusion clearing. A/P: AMS with mild confusion, slurry speech resolved, possible CVA symptom, could 2/ 2 early dementia with sundowning, likely vascular type possibly exacerbated by her knee pain - neg Head ct, defer NEURO For MRI, Recent MRI neg as well as this repeat, EEG neg. On ASA therapy and statin. May be 2/2 meds or hypercalcemia, will consult nephro, fluids Hypercalcemia - 10.7 with confusion, pain will start fluids and consult nephrology rt knee pain, OA likely - improved with PMR treatment rt side weakness , subjective rt hand, rt leg 2/2 knee pain h/o abd wall cellulitis with previous Jasbir tube - resolved h/o debilitating gastroparesis with s/p J tube 04/16/17 and redone 04/22 and off now. May now be returning. CT abdomen neg for obstruction and consult GI for assistance h/o chronic abdominal pain with gastroparesis - returned 11/28 evening severely with nausea and vomiting with no good effect from reglan DM2 - sugars controlled ckd3 - Stable obesity 34.5 BMI - weight loss counseled depression - euthymic now htn, controlled - on norvasc hypothyroidism, TSH 99 2017 multiple abd sx history Hyperlipemia - on statin GERD - on PPI Vitals Vitals Vital Signs Date Time Temp Pulse Resp B/P (MAP) Pulse Ox O2 Delivery O2 Flow Rate FiO2 11/30/17 04:08 122 155/93 11/30/17 03:35 98.9 20 97 Room Air 98.9 Physical Exam General: Alert, Cooperative Heart: Normal S1, Normal S2, Other (tachycardic) Lungs: Clear, Other Abdomen: Normal bowel sounds Extremities: No edema, Normal pulses Skin: No rashes, No breakdown Labs LABS Laboratory Tests Test 11/29/17 11:01 11/29/17 12:13 11/29/17 13:59 11/29/17 16:12 Glucose (Fingerstick) 201 mg/dL (70-99) 228 mg/dL (70-99) 227 mg/dL (70-99) White Blood Count 16.0 x10^3/uL (4.0-11.0) Red Blood Count 4.61 x10^6/uL (3.50-5.40) Hemoglobin 12.6 g/dL (12.0-15.5) Hematocrit 36.9 % (36.0-47.0) Mean Corpuscular Volume 80 fL (79-100) Mean Corpuscular Hemoglobin 27 pg (25-35) Mean Corpuscular Hemoglobin Concent 34 g/dL (31-37) Red Cell Distribution Width 21.8 % (11.5-14.5) Platelet Count 250 x10^3/uL (140-400) Neutrophils (%) (Auto) 80 % (31-73) Lymphocytes (%) (Auto) 14 % (24-48) Monocytes (%) (Auto) 6 % (0-9) Eosinophils (%) (Auto) 0 % (0-3) Basophils (%) (Auto) 0 % (0-3) Neutrophils # (Auto) 12.8 x10^3uL (1.8-7.7) Lymphocytes # (Auto) 2.2 x10^3/uL (1.0-4.8) Monocytes # (Auto) 1.0 x10^3/uL (0.0-1.1) Eosinophils # (Auto) 0.0 x10^3/uL (0.0-0.7) Basophils # (Auto) 0.0 x10^3/uL (0.0-0.2) Segmented Neutrophils % 85 % (35-66) Lymphocytes % 10 % (24-48) Monocytes % 5 % (0-10) Platelet Estimate Adequate (ADEQUATE) Anisocytosis Mod Sodium Level 138 mmol/L (136-145) Potassium Level 3.9 mmol/L (3.5-5.1) Chloride Level 97 mmol/L (98-107) Carbon Dioxide Level 26 mmol/L (21-32) Anion Gap 15 (6-14) Blood Urea Nitrogen 24 mg/dL (7-20) Creatinine 1.2 mg/dL (0.6-1.0) Estimated GFR (Cockcroft-Gault) 53.7 Glucose Level 220 mg/dL (70-99) Calcium Level 10.7 mg/dL (8.5-10.1) Phosphorus Level 3.2 mg/dL (2.6-4.7) Troponin I Quantitative < 0.017 ng/mL (0.000-0.055) Albumin 4.0 g/dL (3.4-5.0) Thyroid Stimulating Hormone (TSH) 0.730 uIU/mL (0.358-3.74) Test 11/29/17 19:47 Glucose (Fingerstick) 188 mg/dL (70-99) Assessment and Plan Assessmemt and Plan Problems Medical Problems: (1) Right sided weakness Status: Acute Comment Review of Relevant I have reviewed the following items mert (where applicable) has been applied. Labs Laboratory Tests Test 11/28/17 11:47 11/28/17 17:01 11/28/17 20:22 11/29/17 07:41 Glucose (Fingerstick) 162 mg/dL (70-99) 187 mg/dL (70-99) 165 mg/dL (70-99) 180 mg/dL (70-99) Test 11/29/17 11:01 11/29/17 12:13 11/29/17 13:59 11/29/17 16:12 Glucose (Fingerstick) 201 mg/dL (70-99) 228 mg/dL (70-99) 227 mg/dL (70-99) White Blood Count 16.0 x10^3/uL (4.0-11.0) Red Blood Count 4.61 x10^6/uL (3.50-5.40) Hemoglobin 12.6 g/dL (12.0-15.5) Hematocrit 36.9 % (36.0-47.0) Mean Corpuscular Volume 80 fL (79-100) Mean Corpuscular Hemoglobin 27 pg (25-35) Mean Corpuscular Hemoglobin Concent 34 g/dL (31-37) Red Cell Distribution Width 21.8 % (11.5-14.5) Platelet Count 250 x10^3/uL (140-400) Neutrophils (%) (Auto) 80 % (31-73) Lymphocytes (%) (Auto) 14 % (24-48) Monocytes (%) (Auto) 6 % (0-9) Eosinophils (%) (Auto) 0 % (0-3) Basophils (%) (Auto) 0 % (0-3) Neutrophils # (Auto) 12.8 x10^3uL (1.8-7.7) Lymphocytes # (Auto) 2.2 x10^3/uL (1.0-4.8) Monocytes # (Auto) 1.0 x10^3/uL (0.0-1.1) Eosinophils # (Auto) 0.0 x10^3/uL (0.0-0.7) Basophils # (Auto) 0.0 x10^3/uL (0.0-0.2) Segmented Neutrophils % 85 % (35-66) Lymphocytes % 10 % (24-48) Monocytes % 5 % (0-10) Platelet Estimate Adequate (ADEQUATE) Anisocytosis Mod Sodium Level 138 mmol/L (136-145) Potassium Level 3.9 mmol/L (3.5-5.1) Chloride Level 97 mmol/L (98-107) Carbon Dioxide Level 26 mmol/L (21-32) Anion Gap 15 (6-14) Blood Urea Nitrogen 24 mg/dL (7-20) Creatinine 1.2 mg/dL (0.6-1.0) Estimated GFR (Cockcroft-Gault) 53.7 Glucose Level 220 mg/dL (70-99) Calcium Level 10.7 mg/dL (8.5-10.1) Phosphorus Level 3.2 mg/dL (2.6-4.7) Troponin I Quantitative < 0.017 ng/mL (0.000-0.055) Albumin 4.0 g/dL (3.4-5.0) Thyroid Stimulating Hormone (TSH) 0.730 uIU/mL (0.358-3.74) Test 11/29/17 19:47 Glucose (Fingerstick) 188 mg/dL (70-99) Laboratory Tests Test 11/29/17 11:01 11/29/17 12:13 11/29/17 13:59 11/29/17 16:12 Glucose (Fingerstick) 201 mg/dL (70-99) 228 mg/dL (70-99) 227 mg/dL (70-99) White Blood Count 16.0 x10^3/uL (4.0-11.0) Red Blood Count 4.61 x10^6/uL (3.50-5.40) Hemoglobin 12.6 g/dL (12.0-15.5) Hematocrit 36.9 % (36.0-47.0) Mean Corpuscular Volume 80 fL (79-100) Mean Corpuscular Hemoglobin 27 pg (25-35) Mean Corpuscular Hemoglobin Concent 34 g/dL (31-37) Red Cell Distribution Width 21.8 % (11.5-14.5) Platelet Count 250 x10^3/uL (140-400) Neutrophils (%) (Auto) 80 % (31-73) Lymphocytes (%) (Auto) 14 % (24-48) Monocytes (%) (Auto) 6 % (0-9) Eosinophils (%) (Auto) 0 % (0-3) Basophils (%) (Auto) 0 % (0-3) Neutrophils # (Auto) 12.8 x10^3uL (1.8-7.7) Lymphocytes # (Auto) 2.2 x10^3/uL (1.0-4.8) Monocytes # (Auto) 1.0 x10^3/uL (0.0-1.1) Eosinophils # (Auto) 0.0 x10^3/uL (0.0-0.7) Basophils # (Auto) 0.0 x10^3/uL (0.0-0.2) Segmented Neutrophils % 85 % (35-66) Lymphocytes % 10 % (24-48) Monocytes % 5 % (0-10) Platelet Estimate Adequate (ADEQUATE) Anisocytosis Mod Sodium Level 138 mmol/L (136-145) Potassium Level 3.9 mmol/L (3.5-5.1) Chloride Level 97 mmol/L (98-107) Carbon Dioxide Level 26 mmol/L (21-32) Anion Gap 15 (6-14) Blood Urea Nitrogen 24 mg/dL (7-20) Creatinine 1.2 mg/dL (0.6-1.0) Estimated GFR (Cockcroft-Gault) 53.7 Glucose Level 220 mg/dL (70-99) Calcium Level 10.7 mg/dL (8.5-10.1) Phosphorus Level 3.2 mg/dL (2.6-4.7) Troponin I Quantitative < 0.017 ng/mL (0.000-0.055) Albumin 4.0 g/dL (3.4-5.0) Thyroid Stimulating Hormone (TSH) 0.730 uIU/mL (0.358-3.74) Test 11/29/17 19:47 Glucose (Fingerstick) 188 mg/dL (70-99) Microbiology 11/27/17 Urine Culture - Preliminary, Resulted 11/27/17 Urine Culture Result 1 (CABRERA) - Preliminary, Resulted Medications Current Medications Influenza Virus Vaccine (Afluria Trivalent [id number] Syringe) 0.5 ml ONCE ONCE VAX IM Last administered on 11/27/17at 17:55; Start 11/27/17 at 17:00; Stop 11/27/17 at 17:01; Status DC Amitriptyline HCl (Elavil) 50 mg QHS PO Last administered on 11/29/17at 21:07; Start 11/27/17 at 21:00 Amlodipine Besylate (Norvasc) 10 mg BID PO ; Start 11/27/17 at 21:00; Stop 11/27 at 21:00; Status DC Docusate Sodium (Colace) 100 mg DAILY PO Last administered on 11/28/17at 08:44; Start 11/28/17 at 09:00 Acetaminophen/ Hydrocodone Bitart (Lortab 5/325) 1 tab PRN BID PRN PO MODERATE PAIN Last administered on 11/29/17at 08:50; Start 11/27/17 at 15:30 Levothyroxine Sodium (Synthroid) 100 mcg DAILY05 PO Last administered on at 04:07; Start 11/28/17 at 05:00 Metoclopramide HCl (Reglan) 10 mg PRN TID PRN PO NAUSEA Last administered on 04:07; Start 11/27/17 at 15:30 Metoprolol Succinate (Toprol Xl) 100 mg DAILY PO Last administered on 08:43; Start 11/28/17 at 09:00; Status Future Hold Trazodone HCl (Desyrel) 50 mg DAILY PO Last administered on 11/28/17 08:44; Start 11/28/17 at 09:00; Stop 11/29/17 at 08:54; Status DC Zolpidem Tartrate (Ambien) 5 mg PRN QHS PRN PO INSOMNIA Last administered on 20:15; Start 11/27/17 at 15:30 Insulin Glargine (Lantus) 20 units QHS SQ Last administered on 11/29/17 21:09 ; Start 11/27/17 at 21:00 Ferrous Sulfate (Feosol) 325 mg DAILYWBKFT PO Last administered on 11/28/17 08 :42; Start 11/28/17 at 08:00 Losartan Potassium (Cozaar) 100 mg DAILY PO Last administered on 11/28/17 08: 42; Start 11/28/17 at 09:00 Metformin HCl (Glucophage) 1,000 mg BIDWMEALS PO ; Start 11/27/17 at 17:00; Stop 11/27/17 at 17:00; Status DC Non-Formulary Medication (Omeprazole ) 1 cap DAILY06 PO ; Start 11/28/17 at 06: 00; Stop 11/28/17 at 06:00; Status DC Pantoprazole Sodium (Protonix) 40 mg DAILYAC PO Last administered on 11/28/17 08:42; Start 11/28/17 at 07:30 Potassium Chloride (Klor-Con) 20 meq DAILYWBKFT PO Last administered on 08:44; Start 11/28/17 at 08:00 Simvastatin (Zocor) 20 mg HS PO Last administered on 11/29/17 21:07; Start at 21:00 Spironolactone (Aldactone) 50 mg DAILY PO Last administered on 11/28/17at 08:43 ; Start 11/28/17 at 09:00 Sucralfate (Carafate) 1 gm QIDACHS PO Last administered on 11/29/17at 21:07; Start 11/27/17 at 16:30 Insulin Human Lispro (HumaLOG) 0-9 UNITS TIDWMEALS SQ Last administered on 11/29at 16:46; Start 11/27/17 at 17:00 Dextrose (Dextrose 50%-Water Syringe) 12.5 gm PRN Q15MIN PRN IV SEE COMMENTS; Start 11/27/17 at 15:30 Hydrochlorothiazide (Microzide) 12.5 mg DAILY PO Last administered on at 08:43; Start 11/28/17 at 09:00 Amlodipine Besylate (Norvasc) 10 mg DAILY PO Last administered on 11/28/17at 08: 43; Start 11/28/17 at 09:00 Aspirin (Evelina Aspirin) 325 mg 1X ONCE PO Last administered on 11/27/17at 17:52 ; Start 11/27/17 at 16:15; Stop 11/27/17 at 16:16; Status DC Metformin HCl (Glucophage) 1,000 mg BIDWMEALS PO Last administered on at 16:18; Start 11/27/17 at 17:00; Stop 11/29/17 at 14:55; Status DC Methylprednisolone Acetate (DEPO-Medrol 40MG VIAL) 40 mg 1X ONCE IM Last administered on 11/28/17at 09:15; Start 11/28/17 at 09:15; Stop 11/28/17 at 09:16 ; Status DC Bupivacaine HCl (Sensorcaine-Mpf 0.25%) 10 ml 1X ONCE IJ Last administered on 11/28/17at 09:15; Start 11/28/17 at 09:15; Stop 11/28/17 at 09:16; Status DC Metoprolol Tartrate (Lopressor Vial) 2.5 mg PRN Q3HRS PRN IVP HYPERTENSION, SEE COMMENTS; Start 11/28/17 at 10:45 Morphine Sulfate (Morphine Sulfate) 2 mg 1X ONCE IM ; Start 11/28/17 at 16:00; Stop 11/28/17 at 16:20; Status DC Morphine Sulfate (Morphine Sulfate) 2 mg 1X ONCE IV Last administered on at 16:22; Start 11/28/17 at 16:30; Stop 11/28/17 at 16:31; Status DC Vitamin D (Vitamin D3) 5,000 unit DAILY PO ; Start 11/29/17 at 09:00 Trazodone HCl (Desyrel) 50 mg QHS PO Last administered on 11/29/17at 20:15; Start 11/29/17 at 21:00 Ondansetron HCl (Zofran) 4 mg PRN Q6HRS PRN IV NAUSEA/VOMITING, 1st CHOICE Last administered on 11/30/17at 01:09; Start 11/29/17 at 10:15 Lactulose (Lactulose) 20 gm PRN DAILY PRN PO CONSTIPATION Last administered on 11/29/17at 20:16; Start 11/29/17 at 12:15 Metoclopramide HCl (Reglan Vial) 5 mg PRN Q6HRS PRN IV NAUSEA/VOMITING, 2nd CHOICE Last administered on 11/30/17at 01:09; Start 11/29/17 at 12:15 Metoprolol Tartrate (Lopressor Vial) 5 mg Q4HRS IVP Last administered on at 04:08; Start 11/29/17 at 16:30 Morphine Sulfate (Morphine Sulfate) 2 mg PRN Q4HRS PRN IV MODERATE TO SEVERE PAIN; Start 11/30/17 at 07:45 Active Scripts Active Levemir Flextouch (Insulin Detemir) 100 Unit/1 Ml Insuln.pen 20 Unit SQ QHS 30 Days Reported Metformin Hcl 1,000 Mg Tablet 1,000 Mg PO BIDWMEALS Ferralet 90 Dual-Iron Tablet (Iron, Carb & Gluc/Fa/B12/C/Dss) 1 Each Tablet 1 Tab PO DAILY Reglan (Metoclopramide Hcl) 10 Mg Tablet 1 Tab PO TID PRN Sucralfate 1 Gm Tablet 1 Tab PO QIDACHS Metoprolol Succinate ( Xl ) (Metoprolol Succinate) 100 Mg Tab.er.24h 1 Tab PO DAILY Simvastatin 20 Mg Tablet 1 Tab PO QHS [place] 5-325 Tablet (Acetaminophen/Hydrocodone Bitart) 1 Each Tablet 1 Tab PO BID PRN Levothyroxine Sodium 100 Mcg Tablet 1 Tab PO DAILY05 Spironolactone 50 Mg Tablet 1 Tab PO DAILY Docusate Sodium 100 Mg Capsule 1 Cap PO DAILY Trazodone Hcl 50 Mg Tablet 50 Mg PO QHS Omeprazole 40 Mg Capsule.dr 1 Cap PO DAILY06 Ibuprofen 800 Mg Tablet 800 Mg PO TID PRN Losartan-Hctz 100-12.5 Mg Tab (Losartan/Hydrochlorothiazide) 1 Each Tablet 1 Tab PO DAILY Amitriptyline Hcl 50 Mg Tablet 1 Tab PO QHS Ambien (Zolpidem Tartrate) 5 Mg Tablet 5 Mg PO HS PRN Potassium Chloride 20 Meq Tablet.er 20 Meq PO DAILY Protonix (Pantoprazole Sodium) 20 Mg Tablet.dr 40 Mg PO DAILYAC Amlodipine Besylate 10 Mg Tablet 10 Mg PO BID Vitals/I & O Vital Sign - Last 24 Hours 11/29/17 11/29/17 11/29/17 11/29/17 08:00 08:50 09:00 11:00 Temp 100.0 100.0 Pulse 99 113 Resp 18 B/P (MAP) 146/90 136/86 (103) Pulse Ox 97 97 O2 Delivery Room Air Room Air Room Air 11/29/17 11/29/17 11/29/17 11/29/17 15:00 15:56 16:34 19:40 Temp 99.3 99.4 99.3 99.4 Pulse 99 115 117 Resp 18 20 B/P (MAP) 146/90 (108) 146/90 155/123 (134) Pulse Ox 97 97 99 O2 Delivery Room Air Room Air Room Air 11/29/17 11/29/17 11/29/17 11/30/17 20:00 20:15 23:46 01:09 Temp 99.2 99.2 Pulse 115 122 122 Resp 20 B/P (MAP) 146/90 155/93 (113) 155/93 Pulse Ox 96 O2 Delivery Room Air Room Air 11/30/17 11/30/17 03:35 04:08 Temp 98.9 98.9 Pulse 105 122 Resp 20 B/P (MAP) 147/92 (110) 155/93 Pulse Ox 97 O2 Delivery Room Air Intake and Output 11/29/17 11/29/17 11/30/17 15:00 23:00 07:00 Intake Total 0 ml 500 ml Output Total 150 ml Balance -150 ml 500 ml BOBBY ALVAREZ MD Nov 30, 2017 07:53
[2017-11-30] MEDS ORDERED: IV NORMAL SALINE 1000ML BAG 1,000 ML IV SCH (08:00)
[2017-11-30] MEDS: POTASSIUM CHLORIDE 20 MEQ TABLET.ER. PO SCH (08:00)
[2017-11-30] MEDS: FERROUS SULFATE 325 MG TABLET. PO SCH (08:00)
[2017-11-30] MEDS: MORPHINE SULFATE 2 MG/ML VIAL. IV PRN ×3 (08:23→16:45)
[2017-11-30] MEDS: amLODIPine BESYLATE 10 MG TABLET PO SCH (09:00)
[2017-11-30] MEDS: DOCUSATE SODIUM 100 MG CAPSULE. PO SCH (09:00)
[2017-11-30] MEDS: SPIRONOLACTONE 25 MG TABLET PO SCH (09:00)
[2017-11-30] MEDS: CHOLECALCIFEROL (VITAMIN D3) 5,000 UNIT CAPSULE PO SCH (09:00)
[2017-11-30 11:00] VITALS: BP 132/91
[2017-11-30 12:05] LABS: BASO # 0.1 x10^3/uL (0.0-0.2); BASO % 1 % (0-3); EOS % 0 % (0-3); HEMATOCRIT 38.8 % (36.0-47.0); HEMOGLOBIN 13.4 g/dL (12.0-15.5); LYMPH # 3.3 x10^3/uL (1.0-4.8); LYMPH % 19 % (24-48); MEAN CORPUSCULAR HEMOGLOBIN 28 pg (25-35); MEAN CORPUSCULAR HGB CONC 35 g/dL (31-37); MEAN CORPUSCULAR VOLUME 80 fL (79-100); MONO # 1.6 x10^3/uL (0.0-1.1); MONO % 9 % (0-9); NEUT # 12.3 x10^3uL (1.8-7.7); NEUT % 71 % (31-73); PLATELET COUNT 256 x10^3/uL (140-400); RED BLOOD COUNT 4.86 x10^6/uL (3.50-5.40); RED CELL DISTRIBUTION WIDTH 21.4 % (11.5-14.5); WHITE BLOOD COUNT 17.4 x10^3/uL (4.0-11.0)
[2017-11-30 12:12] LABS: CALCIUM PTH 11.1 mg/dL (8.7-10.3); CREATININE PTH 0.93 mg/dL (0.57-1.00); PHOSPHORUS PTH 2.7 mg/dL (2.5-4.5); PTH INTACT 33 pg/mL (15-65)
[2017-11-30 12:17] LABS: CREATININE 1.2 mg/dL (0.6-1.0); GFR 53.7; PHOSPHORUS 2.5 mg/dL (2.6-4.7); POTASSIUM 3.1 mmol/L (3.5-5.1)
--- NOTE | 2017-11-30 14:22 | PDOC2 ---
CONSULT Date of Consult Date of Consult DATE: 11/30/17 TIME: 14:01 Reason for Consult Reason for Consult: Hypercalcemia Source Source: Chart review, Patient History of Present Illness Reason for Visit: Patient is a 72 year old AA female presenting with right-sided weakness and slurred speech since Friday. She states she is here as she has been having N/V pt was here 1 month ago for similar presentation with left side weakness, neg MRI. pt lives with her daughter . She said she started to feel rt side weakness 2 days ago, and her daughter said she was confused this am when trying to get orange juice from the refrigerator. She has rt knee pain, now cannot walk 2/2 pain. no fever, chills, headache. She said her daughter noticed she had slurry speech this am, resolved now. Takes Ibuprofen 2-3 tabs/QD . Denies taking Ca or Vit D , No TUms States vomited once this am . head CT neg. Past Medical History Cardiovascular: HTN, Hyperlipidemia Pulmonary: Pulmonary embolus, Other GI: Diverticulosis, GERD, Other (gastroparesis, diarrhea) Heme/Onc: Anemia NOS Psych: Anxiety Musculoskeletal: Osteoarthritis Renal/: UTI, Urinary Incontinence Endocrine: Diabetes, Hypothyroidism Past Surgical History Past Surgical History: Cholecystectomy, Cataract Removal, Total knee replacement (left), Hysterectomy (still has ovaries), Other (retina PEG tube placement and removal, thyroidectomy) Family History Family History: Coronary Artery Disease, Diabetes, Hypertension Social History No ALCOHOL: none Drugs: None Lives: Alone Current Problem List Problem List Problems Medical Problems: (1) Right sided weakness Status: Acute Current Medications Current Medications Current Medications Influenza Virus Vaccine (Afluria Trivalent [id number] Syringe) 0.5 ml ONCE ONCE VAX IM Last administered on 11/27/17at 17:55; Start 11/27/17 at 17:00; Stop 11/27/17 at 17:01; Status DC Amitriptyline HCl (Elavil) 50 mg QHS PO Last administered on 11/29/17at 21:07; Start 11/27/17 at 21:00 Amlodipine Besylate (Norvasc) 10 mg BID PO ; Start 11/27/17 at 21:00; Stop 11/27 at 21:00; Status DC Docusate Sodium (Colace) 100 mg DAILY PO Last administered on 11/28/17at 08:44; Start 11/28/17 at 09:00 Acetaminophen/ Hydrocodone Bitart (Lortab 5/325) 1 tab PRN BID PRN PO MODERATE PAIN Last administered on 11/29/17 08:50; Start 11/27/17 at 15:30 Levothyroxine Sodium (Synthroid) 100 mcg DAILY05 PO Last administered on 04:07; Start 11/28/17 at 05:00 Metoclopramide HCl (Reglan) 10 mg PRN TID PRN PO NAUSEA Last administered on 04:07; Start 11/27/17 at 15:30 Metoprolol Succinate (Toprol Xl) 100 mg DAILY PO Last administered on 08:43; Start 11/28/17 at 09:00; Status Future Hold Trazodone HCl (Desyrel) 50 mg DAILY PO Last administered on 11/28/17 08:44; Start 11/28/17 at 09:00; Stop 11/29/17 at 08:54; Status DC Zolpidem Tartrate (Ambien) 5 mg PRN QHS PRN PO INSOMNIA Last administered on 20:15; Start 11/27/17 at 15:30 Insulin Glargine (Lantus) 20 units QHS SQ Last administered on 11/29/17 21:09 ; Start 11/27/17 at 21:00 Ferrous Sulfate (Feosol) 325 mg DAILYWBKFT PO Last administered on 11/28/17 08 :42; Start 11/28/17 at 08:00 Losartan Potassium (Cozaar) 100 mg DAILY PO Last administered on 11/28/17at 08: 42; Start 11/28/17 at 09:00; Stop 11/30/17 at 07:51; Status DC Metformin HCl (Glucophage) 1,000 mg BIDWMEALS PO ; Start 11/27/17 at 17:00; Stop 11/27/17 at 17:00; Status DC Non-Formulary Medication (Omeprazole ) 1 cap DAILY06 PO ; Start 11/28/17 at 06: 00; Stop 11/28/17 at 06:00; Status DC Pantoprazole Sodium (Protonix) 40 mg DAILYAC PO Last administered on 10/5/18at 08:42; Start 11/28/17 at 07:30 Potassium Chloride (Klor-Con) 20 meq DAILYWBKFT PO Last administered on at 08:44; Start 11/28/17 at 08:00 Simvastatin (Zocor) 20 mg HS PO Last administered on 11/29/17 21:07; Start at 21:00 Spironolactone (Aldactone) 50 mg DAILY PO Last administered on 11/28/17 08:43 ; Start 11/28/17 at 09:00 Sucralfate (Carafate) 1 gm QIDACHS PO Last administered on 11/29/17 21:07; Start 11/27/17 at 16:30 Insulin Human Lispro (HumaLOG) 0-9 UNITS TIDWMEALS SQ Last administered on 11/30at 12:41; Start 11/27/17 at 17:00 Dextrose (Dextrose 50%-Water Syringe) 12.5 gm PRN Q15MIN PRN IV SEE COMMENTS; Start 11/27/17 at 15:30 Hydrochlorothiazide (Microzide) 12.5 mg DAILY PO Last administered on 08:43; Start 11/28/17 at 09:00; Stop 11/30/17 at 07:51; Status DC Amlodipine Besylate (Norvasc) 10 mg DAILY PO Last administered on 11/28/17 08: 43; Start 11/28/17 at 09:00 Aspirin (Evelina Aspirin) 325 mg 1X ONCE PO Last administered on 11/27/17 17:52 ; Start 11/27/17 at 16:15; Stop 11/27/17 at 16:16; Status DC Metformin HCl (Glucophage) 1,000 mg BIDWMEALS PO Last administered on 16:18; Start 11/27/17 at 17:00; Stop 11/29/17 at 14:55; Status DC Methylprednisolone Acetate (DEPO-Medrol 40MG VIAL) 40 mg 1X ONCE IM Last administered on 11/28/17 09:15; Start 11/28/17 at 09:15; Stop 11/28/17 at 09:16 ; Status DC Bupivacaine HCl (Sensorcaine-Mpf 0.25%) 10 ml 1X ONCE IJ Last administered on 11/28/17at 09:15; Start 11/28/17 at 09:15; Stop 11/28/17 at 09:16; Status DC Metoprolol Tartrate (Lopressor Vial) 2.5 mg PRN Q3HRS PRN IVP HYPERTENSION, SEE COMMENTS; Start 11/28/17 at 10:45 Morphine Sulfate (Morphine Sulfate) 2 mg 1X ONCE IM ; Start 11/28/17 at 16:00; Stop 11/28/17 at 16:20; Status DC Morphine Sulfate (Morphine Sulfate) 2 mg 1X ONCE IV Last administered on at 16:22; Start 11/28/17 at 16:30; Stop 11/28/17 at 16:31; Status DC Vitamin D (Vitamin D3) 5,000 unit DAILY PO ; Start 11/29/17 at 09:00 Trazodone HCl (Desyrel) 50 mg QHS PO Last administered on 11/29/17 20:15; Start 11/29/17 at 21:00 Ondansetron HCl (Zofran) 4 mg PRN Q6HRS PRN IV NAUSEA/VOMITING, 1st CHOICE Last administered on 11/30/17at 07:47; Start 11/29/17 at 10:15 Lactulose (Lactulose) 20 gm PRN DAILY PRN PO CONSTIPATION Last administered on 11/29/17 20:16; Start 11/29/17 at 12:15 Metoclopramide HCl (Reglan Vial) 5 mg PRN Q6HRS PRN IV NAUSEA/VOMITING, 2nd CHOICE Last administered on 11/30/17at 07:47; Start 11/29/17 at 12:15 Metoprolol Tartrate (Lopressor Vial) 5 mg Q4HRS IVP Last administered on at 12:43; Start 11/29/17 at 16:30 Morphine Sulfate (Morphine Sulfate) 2 mg PRN Q4HRS PRN IV MODERATE TO SEVERE PAIN Last administered on 11/30/17 12:36; Start 11/30/17 at 07:45 Sodium Chloride 1,000 ml @ 100 mls/hr Q10H IV Last administered on 11/30/17 08:21; Start 11/30/17 at 08:00 Active Scripts Active Levemir Flextouch (Insulin Detemir) 100 Unit/1 Ml Insuln.pen 20 Unit SQ QHS 30 Days Reported Metformin Hcl 1,000 Mg Tablet 1,000 Mg PO BIDWMEALS Ferralet 90 Dual-Iron Tablet (Iron, Carb & Gluc/Fa/B12/C/Dss) 1 Each Tablet 1 Tab PO DAILY Reglan (Metoclopramide Hcl) 10 Mg Tablet 1 Tab PO TID PRN Sucralfate 1 Gm Tablet 1 Tab PO QIDACHS Metoprolol Succinate ( Xl ) (Metoprolol Succinate) 100 Mg Tab.er.24h 1 Tab PO DAILY Simvastatin 20 Mg Tablet 1 Tab PO QHS [place] 5-325 Tablet (Acetaminophen/Hydrocodone Bitart) 1 Each Tablet 1 Tab PO BID PRN Levothyroxine Sodium 100 Mcg Tablet 1 Tab PO DAILY05 Spironolactone 50 Mg Tablet 1 Tab PO DAILY Docusate Sodium 100 Mg Capsule 1 Cap PO DAILY Trazodone Hcl 50 Mg Tablet 50 Mg PO QHS Omeprazole 40 Mg Capsule.dr 1 Cap PO DAILY06 Ibuprofen 800 Mg Tablet 800 Mg PO TID PRN Losartan-Hctz 100-12.5 Mg Tab (Losartan/Hydrochlorothiazide) 1 Each Tablet 1 Tab PO DAILY Amitriptyline Hcl 50 Mg Tablet 1 Tab PO QHS Ambien (Zolpidem Tartrate) 5 Mg Tablet 5 Mg PO HS PRN Potassium Chloride 20 Meq Tablet.er 20 Meq PO DAILY Protonix (Pantoprazole Sodium) 20 Mg Tablet.dr 40 Mg PO DAILYAC Amlodipine Besylate 10 Mg Tablet 10 Mg PO BID Allergies Allergies: Coded Allergies: Sulfa (Sulfonamide Antibiotics) (Verified Allergy, Intermediate, 12/22/16) prochlorperazine (Verified Adverse Reaction, Intermediate, DIZZY, 04/08/17) ROS Review of System As per HPI Physical Exam Physical Exam GEN.: No apparent distress. HEENT OM moist NECK: Supple. LUNGS: Clear to auscultation. HEART: RRR, S1, S2 present. ABDOMEN: Soft, nontender. Positive bowel sounds. EXTREMITIES: no edema NEUROLOGIC: AxO x3, rest as per neuro PSYCHIATRIC: Normal affect, normal mood. SKIN: No rash Vital Signs Vital Signs Date Time Temp Pulse Resp B/P (MAP) Pulse Ox O2 Delivery O2 Flow Rate FiO2 11/30/17 12:43 108 132/91 11/30/17 12:36 97 Room Air 11/30/17 11:00 98.4 16 98.4 Assessment & Plan Hypercalcemia- Mild,likely pre-renal, Improved Phos, pTH normal , check Vit D Not on supplement s, monitor Francois- Improved Pr-renal CKD stage 3 - Stable On Ibuprofen at home UTI - Leuk esterase, Nitrites +, WBC+ on 11/27 Hypokalemia- Mild Replace as needed h/o debilitating gastroparesis with s/p J tube 04/16/17 and redone 04/22 and off now Renal Cysts- Bilat Multiple Labs Labs Laboratory Tests Test 11/28/17 17:01 11/28/17 20:22 11/29/17 07:41 11/29/17 11:01 Glucose (Fingerstick) 187 mg/dL (70-99) 165 mg/dL (70-99) 180 mg/dL (70-99) 201 mg/dL (70-99) Test 11/29/17 12:13 11/29/17 13:59 11/29/17 16:12 11/29/17 19:20 White Blood Count 16.0 x10^3/uL (4.0-11.0) Red Blood Count 4.61 x10^6/uL (3.50-5.40) Hemoglobin 12.6 g/dL (12.0-15.5) Hematocrit 36.9 % (36.0-47.0) Mean Corpuscular Volume 80 fL (79-100) Mean Corpuscular Hemoglobin 27 pg (25-35) Mean Corpuscular Hemoglobin Concent 34 g/dL (31-37) Red Cell Distribution Width 21.8 % (11.5-14.5) Platelet Count 250 x10^3/uL (140-400) Neutrophils (%) (Auto) 80 % (31-73) Lymphocytes (%) (Auto) 14 % (24-48) Monocytes (%) (Auto) 6 % (0-9) Eosinophils (%) (Auto) 0 % (0-3) Basophils (%) (Auto) 0 % (0-3) Neutrophils # (Auto) 12.8 x10^3uL (1.8-7.7) Lymphocytes # (Auto) 2.2 x10^3/uL (1.0-4.8) Monocytes # (Auto) 1.0 x10^3/uL (0.0-1.1) Eosinophils # (Auto) 0.0 x10^3/uL (0.0-0.7) Basophils # (Auto) 0.0 x10^3/uL (0.0-0.2) Segmented Neutrophils % 85 % (35-66) Lymphocytes % 10 % (24-48) Monocytes % 5 % (0-10) Platelet Estimate Adequate (ADEQUATE) Anisocytosis Mod Sodium Level 138 mmol/L (136-145) Potassium Level 3.9 mmol/L (3.5-5.1) Chloride Level 97 mmol/L (98-107) Carbon Dioxide Level 26 mmol/L (21-32) Anion Gap 15 (6-14) Blood Urea Nitrogen 24 mg/dL (7-20) Creatinine 1.2 mg/dL (0.6-1.0) Estimated GFR (Cockcroft-Gault) 53.7 Glucose Level 220 mg/dL (70-99) Calcium Level 10.7 mg/dL (8.5-10.1) Phosphorus Level 3.2 mg/dL (2.6-4.7) Troponin I Quantitative < 0.017 ng/mL (0.000-0.055) Albumin 4.0 g/dL (3.4-5.0) Thyroid Stimulating Hormone (TSH) 0.730 uIU/mL (0.358-3.74) Glucose (Fingerstick) 228 mg/dL (70-99) 227 mg/dL (70-99) Estimated GFR (Non- 62 (>59) EGFR 72 (>59) PTH (Intact) Specimen Description Comment (.) Parathyroid Hormone (Intact) 33 pg/mL (15-65) Calcium (PTH Intact) 11.1 mg/dL (8.7-10.3) Creatinine (PTH Intact) 0.93 mg/dL (0.57-1.00) Phosphorus (PTH Intact) 2.7 mg/dL (2.5-4.5) Test 11/29/17 19:47 11/30/17 07:21 11/30/17 11:45 11/30/17 11:59 Glucose (Fingerstick) 188 mg/dL (70-99) 227 mg/dL (70-99) 210 mg/dL (70-99) White Blood Count 17.4 x10^3/uL (4.0-11.0) Red Blood Count 4.86 x10^6/uL (3.50-5.40) Hemoglobin 13.4 g/dL (12.0-15.5) Hematocrit 38.8 % (36.0-47.0) Mean Corpuscular Volume 80 fL (79-100) Mean Corpuscular Hemoglobin 28 pg (25-35) Mean Corpuscular Hemoglobin Concent 35 g/dL (31-37) Red Cell Distribution Width 21.4 % (11.5-14.5) Platelet Count 256 x10^3/uL (140-400) Neutrophils (%) (Auto) 71 % (31-73) Lymphocytes (%) (Auto) 19 % (24-48) Monocytes (%) (Auto) 9 % (0-9) Eosinophils (%) (Auto) 0 % (0-3) Basophils (%) (Auto) 1 % (0-3) Neutrophils # (Auto) 12.3 x10^3uL (1.8-7.7) Lymphocytes # (Auto) 3.3 x10^3/uL (1.0-4.8) Monocytes # (Auto) 1.6 x10^3/uL (0.0-1.1) Eosinophils # (Auto) 0.0 x10^3/uL (0.0-0.7) Basophils # (Auto) 0.1 x10^3/uL (0.0-0.2) Sodium Level 137 mmol/L (136-145) Potassium Level 3.1 mmol/L (3.5-5.1) Chloride Level 96 mmol/L (98-107) Carbon Dioxide Level 25 mmol/L (21-32) Anion Gap 16 (6-14) Blood Urea Nitrogen 15 mg/dL (7-20) Creatinine 1.2 mg/dL (0.6-1.0) Estimated GFR (Cockcroft-Gault) 53.7 Glucose Level 215 mg/dL (70-99) Calcium Level 10.0 mg/dL (8.5-10.1) Phosphorus Level 2.5 mg/dL (2.6-4.7) Albumin 4.0 g/dL (3.4-5.0) Laboratory Tests Test 11/29/17 16:12 11/29/17 19:20 11/29/17 19:47 11/30/17 07:21 Glucose (Fingerstick) 227 mg/dL (70-99) 188 mg/dL (70-99) 227 mg/dL (70-99) Estimated GFR (Non- 62 (>59) EGFR 72 (>59) PTH (Intact) Specimen Description Comment (.) Parathyroid Hormone (Intact) 33 pg/mL (15-65) Calcium (PTH Intact) 11.1 mg/dL (8.7-10.3) Creatinine (PTH Intact) 0.93 mg/dL (0.57-1.00) Phosphorus (PTH Intact) 2.7 mg/dL (2.5-4.5) Test 11/30/17 11:45 11/30/17 11:59 White Blood Count 17.4 x10^3/uL (4.0-11.0) Red Blood Count 4.86 x10^6/uL (3.50-5.40) Hemoglobin 13.4 g/dL (12.0-15.5) Hematocrit 38.8 % (36.0-47.0) Mean Corpuscular Volume 80 fL (79-100) Mean Corpuscular Hemoglobin 28 pg (25-35) Mean Corpuscular Hemoglobin Concent 35 g/dL (31-37) Red Cell Distribution Width 21.4 % (11.5-14.5) Platelet Count 256 x10^3/uL (140-400) Neutrophils (%) (Auto) 71 % (31-73) Lymphocytes (%) (Auto) 19 % (24-48) Monocytes (%) (Auto) 9 % (0-9) Eosinophils (%) (Auto) 0 % (0-3) Basophils (%) (Auto) 1 % (0-3) Neutrophils # (Auto) 12.3 x10^3uL (1.8-7.7) Lymphocytes # (Auto) 3.3 x10^3/uL (1.0-4.8) Monocytes # (Auto) 1.6 x10^3/uL (0.0-1.1) Eosinophils # (Auto) 0.0 x10^3/uL (0.0-0.7) Basophils # (Auto) 0.1 x10^3/uL (0.0-0.2) Sodium Level 137 mmol/L (136-145) Potassium Level 3.1 mmol/L (3.5-5.1) Chloride Level 96 mmol/L (98-107) Carbon Dioxide Level 25 mmol/L (21-32) Anion Gap 16 (6-14) Blood Urea Nitrogen 15 mg/dL (7-20) Creatinine 1.2 mg/dL (0.6-1.0) Estimated GFR (Cockcroft-Gault) 53.7 Glucose Level 215 mg/dL (70-99) Calcium Level 10.0 mg/dL (8.5-10.1) Phosphorus Level 2.5 mg/dL (2.6-4.7) Albumin 4.0 g/dL (3.4-5.0) Glucose (Fingerstick) 210 mg/dL (70-99) Review All relevant outside records, renal labs, imaging studies, telemetry/EKG's were reviewed. Images Images Renal US 2017 Grayscale imaging targeted to the kidneys was performed. Note is made of a CT examination of the abdomen and pelvis one day earlier. The right kidney measures 9.5 x 5.7 x 4.9 cm. There are several right renal cysts the largest measuring approximately 2.5 cm in greatest dimension. No hydronephrosis or definite solid mass is seen. The urinary bladder appears grossly normal. The left kidney measures 10.2 x 4.6 x 4.1 cm. There are occasional left renal cysts the largest measuring approximately 1.3 cm. No hydronephrosis or definite solid mass is seen. IMPRESSION: Bilateral renal cysts. No hydronephrosis or solid mass is seen associated with either kidney EXAM: Abdomen and pelvis CT without intravenous contrast. Reviewed ONOFRE PEREZ MD Nov 30, 2017 14:22
[2017-11-30 15:00] VITALS: BP 165/95
--- NOTE | 2017-11-30 15:15 | PDOC2 ---
GI CONSULT Reason For Consult: n/v HPI: HPI: 72 y/o female w/ h/o some cognitive function impairment admitted through ER w/ weakness We have seen many times in the past. H/o gastroparesis (abnormal GES in 2017) w / previous J tube placement/dislodgement, then cellulitis. H/o GERD. H/o elevated lipase in the past, I believe w/o abnormal pancreas imaging, also normal CA19-9. Summary list shows omeprazole, pantoprazole, Reglan, and ibuprofen. Has also been on erythromycin in the past. Previous EGD and colonoscopy w/ Dr. Екатерина Momin in 2008: normal gastric biopsies, hyperplastic polyp, diverticulosis. Has reported additional 'scopes w/ Dr. Novoa since then. S/p cholecystectomy. She reports a BM yesterday but otherwise goes every 3-4 days. Her blood sugars are always over 200. She states that she takes Reglan but it does not seem to help. Dr Novoa has told her that she does not need more EGDs PMH: PMH: Past Medical History Cardiovascular: HTN Pulmonary: Pulmonary embolus, Other Psych: Anxiety Endocrine: Diabetes, Hypothyroidism Past Surgical History Past Surgical History: Cholecystectomy, Total knee replacement, Hysterectomy Family History Family History: Coronary Artery Disease, Diabetes, Hypertension Social History Smoke: No ALCOHOL: none Drugs: None FH: Family History: Hypertension Social History: Smoke: No ALCOHOL: none Drugs: None ROS: ROS: GEN: Denies fevers, chills, sweats HEENT: Denies blurred vision, sore throat CV: Denies chest pain RESP: Denies shortness of air, cough GI: Per HPI : Denies hematuria, dysuria ENDO: Denies weight changes NEURO: +confusion MSK: +weakness SKIN: Denies jaundice, pruritus VItals: Vitals: Vital Signs Date Time Temp Pulse Resp B/P (MAP) Pulse Ox O2 Delivery O2 Flow Rate FiO2 11/30/17 12:43 108 132/91 11/30/17 12:36 97 Room Air 11/30/17 11:00 98.4 16 98.4 Labs: Labs: Laboratory Tests Test 11/29/17 16:12 11/29/17 19:20 11/29/17 19:47 11/30/17 07:21 Glucose (Fingerstick) 227 mg/dL (70-99) 188 mg/dL (70-99) 227 mg/dL (70-99) Estimated GFR (Non- 62 (>59) EGFR 72 (>59) PTH (Intact) Specimen Description Comment (.) Parathyroid Hormone (Intact) 33 pg/mL (15-65) Calcium (PTH Intact) 11.1 mg/dL (8.7-10.3) Creatinine (PTH Intact) 0.93 mg/dL (0.57-1.00) Phosphorus (PTH Intact) 2.7 mg/dL (2.5-4.5) Test 11/30/17 11:45 11/30/17 11:59 White Blood Count 17.4 x10^3/uL (4.0-11.0) Red Blood Count 4.86 x10^6/uL (3.50-5.40) Hemoglobin 13.4 g/dL (12.0-15.5) Hematocrit 38.8 % (36.0-47.0) Mean Corpuscular Volume 80 fL (79-100) Mean Corpuscular Hemoglobin 28 pg (25-35) Mean Corpuscular Hemoglobin Concent 35 g/dL (31-37) Red Cell Distribution Width 21.4 % (11.5-14.5) Platelet Count 256 x10^3/uL (140-400) Neutrophils (%) (Auto) 71 % (31-73) Lymphocytes (%) (Auto) 19 % (24-48) Monocytes (%) (Auto) 9 % (0-9) Eosinophils (%) (Auto) 0 % (0-3) Basophils (%) (Auto) 1 % (0-3) Neutrophils # (Auto) 12.3 x10^3uL (1.8-7.7) Lymphocytes # (Auto) 3.3 x10^3/uL (1.0-4.8) Monocytes # (Auto) 1.6 x10^3/uL (0.0-1.1) Eosinophils # (Auto) 0.0 x10^3/uL (0.0-0.7) Basophils # (Auto) 0.1 x10^3/uL (0.0-0.2) Sodium Level 137 mmol/L (136-145) Potassium Level 3.1 mmol/L (3.5-5.1) Chloride Level 96 mmol/L (98-107) Carbon Dioxide Level 25 mmol/L (21-32) Anion Gap 16 (6-14) Blood Urea Nitrogen 15 mg/dL (7-20) Creatinine 1.2 mg/dL (0.6-1.0) Estimated GFR (Cockcroft-Gault) 53.7 Glucose Level 215 mg/dL (70-99) Calcium Level 10.0 mg/dL (8.5-10.1) Phosphorus Level 2.5 mg/dL (2.6-4.7) Albumin 4.0 g/dL (3.4-5.0) Glucose (Fingerstick) 210 mg/dL (70-99) Imaging: Imaging: EXAM: Abdomen and pelvis CT without intravenous contrast. HISTORY: Pain and vomiting. TECHNIQUE: Computed tomographic images of the abdomen and pelvis were obtained without contrast. Multiplanar reformatting was performed. *One or more of the following individualized dose reduction techniques were utilized for this examination: 1. Automated exposure control. 2. Adjustment of the mA and/or kV according to patient size. 3. Use of iterative reconstruction technique. COMPARISON: 05/25/2017. FINDINGS: Evaluation of the lower thorax demonstrates bilateral lower lobe atelectasis. There is cardiomegaly. There is a tiny hiatal hernia. There is stable nodularity within the inferior 6:00 position of the right breast. No focal hepatic lesion is seen. The gallbladder is surgically absent. No pancreatic lesion is seen. The spleen and adrenal glands are unremarkable. There are multiple bilateral renal cysts, the largest of which measures 2.8 cm on the right. There is no clear obstructive uropathy. There is no nephroureterolithiasis. The bladder is unremarkable. There is no appendicitis. There is no bowel obstruction. There is distal colonic diverticulosis without diverticulitis. The uterus is surgically absent. There is scarring and postoperative change along the left and mid ventral abdominal wall. There is no lymphadenopathy. There are degenerative changes throughout the spine. There is no suspicious osseous lesion. IMPRESSION: 1. Distal colonic diverticulosis without diverticulitis. 2. Multiple bilateral renal cysts. 3. Scarring within the ventral abdominal wall. Electronically signed by: Alexsandra Gordon MD (11/29/2017 4:13 PM) [facility] DICTATED and SIGNED BY: ALEXSANDRA GORDON MD DATE: 11/29/171609 PE: PE: GEN: NAD HEENT: Atraumatic, PERRL LUNGS: CTAB HEART: RRR ABD: NABS, S/ND, vague lower discomfort EXTREMITY: No edema SKIN: No rashes, no jaundice NEURO/PSYCH: A & O 3 - poor historian A/P: A/P: A/P: A) N/V GERD - seems still on PPI, has had EGDs in the past Gastroparesis - attempted treatment w/ Reglan and erythromycin in the past, previous J tube placement/dislodgement H/o elevated lipase, normal CA19-9 CRC screen - UTD Diverticulosis Chronic anemia -- P) 1) Have recommended better blood sugar control 2) Consider erythromycin 3) Optical Laboratory Mechanic consult 4) Trial of outpatient meds for constipation to be discussed with primary GI TAPAN SIMON MD Nov 30, 2017 15:15
[2017-11-30] MEDS: cefTRIAXone IV Push 1 GM VIAL. IVP SCH (16:18)
[2017-11-30 19:49] VITALS: BP 143/93
[2017-11-30] MEDS: AMITRIPTYLINE HCL 50 MG TABLET PO SCH (20:44)
[2017-11-30] MEDS: traZODone 50 MG TABLET. PO SCH (20:44)
[2017-11-30] MEDS: SIMVASTATIN 20 MG TABLET PO SCH (20:44)
[2017-11-30] MEDS: INSULIN GLARGINE 300 UNITS/3 ML INSULN.PEN. SQ SCH (20:53)
[2017-11-30 23:02] VITALS: BP 152/95
[2017-12-01] MEDS: METOPROLOL TARTRATE 5 MG/5 ML VIAL. IVP SCH ×6 (00:19→21:06)
[2017-12-01] MEDS: ONDANSETRON PF 4 MG/2 ML VIAL. IV PRN (00:53)
[2017-12-01] MEDS: HYDROcodone/APAP 5/325MG 1 TAB TABLET PO PRN ×3 (00:53→20:45)
[2017-12-01 03:44] VITALS: BP 187/113
[2017-12-01] MEDS: LEVOTHYROXINE 100 MCG TABLET PO SCH (04:03)
[2017-12-01] MEDS: MORPHINE SULFATE 2 MG/ML VIAL. IV PRN ×3 (04:04→16:34)
[2017-12-01] MEDS: METOCLOPRAMIDE HCL 10 MG/2 ML VIAL. IV PRN (04:05)
[2017-12-01 05:33] LABS: BASO # 0.1 x10^3/uL (0.0-0.2); BASO % 1 % (0-3); EOS % 0 % (0-3); HEMATOCRIT 39.2 % (36.0-47.0); HEMOGLOBIN 13.2 g/dL (12.0-15.5); LYMPH # 2.2 x10^3/uL (1.0-4.8); LYMPH % 18 % (24-48); MEAN CORPUSCULAR HEMOGLOBIN 27 pg (25-35); MEAN CORPUSCULAR HGB CONC 34 g/dL (31-37); MEAN CORPUSCULAR VOLUME 81 fL (79-100); MONO # 0.9 x10^3/uL (0.0-1.1); MONO % 7 % (0-9); NEUT # 9.2 x10^3uL (1.8-7.7); NEUT % 74 % (31-73); PLATELET COUNT 237 x10^3/uL (140-400); RED BLOOD COUNT 4.85 x10^6/uL (3.50-5.40); RED CELL DISTRIBUTION WIDTH 20.6 % (11.5-14.5); WHITE BLOOD COUNT 12.5 x10^3/uL (4.0-11.0)
[2017-12-01 05:53] LABS: ALBUMIN 3.9 g/dL (3.4-5.0); CALCIUM 9.8 mg/dL (8.5-10.1); CREATININE 0.9 mg/dL (0.6-1.0); GFR 74.9; POTASSIUM 3.4 mmol/L (3.5-5.1)
[2017-12-01 07:05] VITALS: BP 188/118
[2017-12-01] MEDS: PANTOPRAZOLE 40 MG TABLET.DR. PO SCH (07:30)
[2017-12-01] MEDS: amLODIPine BESYLATE 10 MG TABLET PO SCH (07:55)
[2017-12-01] MEDS: SPIRONOLACTONE 25 MG TABLET PO SCH (07:56)
[2017-12-01] MEDS: SUCRALFATE 1 GM TABLET. PO SCH ×4 (07:56→20:44)
[2017-12-01] MEDS: DOCUSATE SODIUM 100 MG CAPSULE. PO SCH (07:57)
[2017-12-01] MEDS: POTASSIUM CHLORIDE 20 MEQ TABLET.ER. PO SCH (08:00)
[2017-12-01] MEDS: FERROUS SULFATE 325 MG TABLET. PO SCH (08:00)
[2017-12-01] MEDS: INSULIN LISPRO 300 UNITS/3 ML INSULN.PEN. SQ SCH ×3 (08:05→16:47)
[2017-12-01] MEDS: CHOLECALCIFEROL (VITAMIN D3) 5,000 UNIT CAPSULE PO SCH (08:07)
--- NOTE | 2017-12-01 08:46 | PDOC ---
PROGRESS NOTES Chief Complaint Chief Complaint Right sided weakness Acute encephalopathy Right knee pain UTI Intractable nausea and vomiting History of Present Illness History of Present Illness Patient is a 72 year old female presenting with right-sided weakness and slurred speech since 11/25/17. She states her daughter told her she was confused. Seen here 1 month ago for similar presentation with left side weakness, neg MRI at that time. Head CT neg and MRI negative. Seen by neurology. A little tachycardic with ambulation after her knee injection. EKG reviewed with non-specific t-wave flattening, no significant ST segment changes. Troponin negative, no CP or SOB. No fever, chills, headache. Pt actually had rt knee pain, could not walk 2/2 pain. Seen by PMR for right knee injection with improvement. Immediately after she experienced intractable nausea and vomiting which has continued and she is unable to take PO, seen by GI , had CT showing no obstruction. She continues to have episodic confusion and now tachycardia and intractable nausea and vomiting overnight again for 4th day in a row, is bilious, unable to take PO. Calcium level up to 10.7, fluids restarted with improvement to 9.8, for her weakness phos was checked, low at 2, now on replacement, but still with vomiting despite reglan, zofran and GI consultation. She just wants relief of her nausea and vomiting. Confusion is intermittent. A/P: Intractable nausea and vomiting - now for the past 4 days, seen by GI, not improved with medications, difficult to hold down meds or food. Needs further w/ u AMS with mild confusion, slurry speech resolved, possible CVA symptom, could 2/ 2 early dementia with sund, likely vascular type possibly exacerbated by her knee pain - neg Head ct, defer NEURO For MRI, Recent MRI neg as well as this repeat, EEG neg. On ASA therapy and statin. May be 2/2 meds or hypercalcemia, will consult nephro, fluids Hypercalcemia - 10.7 with confusion, pain started fluids and consulted nephrology. Improved, though phos level was low, PTH pending rt knee pain, OA likely - improved with PMR treatment rt side weakness , subjective rt hand, rt leg 2/2 knee pain h/o abd wall cellulitis with previous Jasbir tube - resolved h/o debilitating gastroparesis with s/p J tube 04/16/17 and redone 04/22 and off now. May now be returning. CT abdomen neg for obstruction and consult GI for assistance h/o chronic abdominal pain with gastroparesis - returned 11/28 evening severely with nausea and vomiting with no good effect from reglan DM2 - sugars controlled ckd3 - Stable obesity 34.5 BMI - weight loss counseled depression - euthymic now htn, controlled - on norvasc hypothyroidism, TSH 99 2017 multiple abd sx history Hyperlipemia - on statin GERD - on PPI Vitals Vitals Vital Signs Date Time Temp Pulse Resp B/P (MAP) Pulse Ox O2 Delivery O2 Flow Rate FiO2 12/01/17 08:11 Room Air 12/01/17 07:55 111 188/118 12/01/17 07:53 96 12/01/17 07:05 97.5 17 97.5 Physical Exam General: Alert, Cooperative Heart: Normal S1, Normal S2, Other (tachycardic) Lungs: Clear, Other Abdomen: Normal bowel sounds Extremities: No edema, Normal pulses Skin: No rashes, No breakdown Labs LABS Laboratory Tests Test 11/30/17 11:45 11/30/17 11:59 11/30/17 17:10 11/30/17 20:22 White Blood Count 17.4 x10^3/uL (4.0-11.0) Red Blood Count 4.86 x10^6/uL (3.50-5.40) Hemoglobin 13.4 g/dL (12.0-15.5) Hematocrit 38.8 % (36.0-47.0) Mean Corpuscular Volume 80 fL (79-100) Mean Corpuscular Hemoglobin 28 pg (25-35) Mean Corpuscular Hemoglobin Concent 35 g/dL (31-37) Red Cell Distribution Width 21.4 % (11.5-14.5) Platelet Count 256 x10^3/uL (140-400) Neutrophils (%) (Auto) 71 % (31-73) Lymphocytes (%) (Auto) 19 % (24-48) Monocytes (%) (Auto) 9 % (0-9) Eosinophils (%) (Auto) 0 % (0-3) Basophils (%) (Auto) 1 % (0-3) Neutrophils # (Auto) 12.3 x10^3uL (1.8-7.7) Lymphocytes # (Auto) 3.3 x10^3/uL (1.0-4.8) Monocytes # (Auto) 1.6 x10^3/uL (0.0-1.1) Eosinophils # (Auto) 0.0 x10^3/uL (0.0-0.7) Basophils # (Auto) 0.1 x10^3/uL (0.0-0.2) Sodium Level 137 mmol/L (136-145) Potassium Level 3.1 mmol/L (3.5-5.1) Chloride Level 96 mmol/L (98-107) Carbon Dioxide Level 25 mmol/L (21-32) Anion Gap 16 (6-14) Blood Urea Nitrogen 15 mg/dL (7-20) Creatinine 1.2 mg/dL (0.6-1.0) Estimated GFR (Cockcroft-Gault) 53.7 Glucose Level 215 mg/dL (70-99) Calcium Level 10.0 mg/dL (8.5-10.1) Phosphorus Level 2.5 mg/dL (2.6-4.7) Albumin 4.0 g/dL (3.4-5.0) Glucose (Fingerstick) 210 mg/dL (70-99) 173 mg/dL (70-99) 212 mg/dL (70-99) Test 12/01/17 04:32 12/01/17 04:50 12/01/17 07:19 Sodium Level 137 mmol/L (136-145) Potassium Level 3.4 mmol/L (3.5-5.1) Chloride Level 96 mmol/L (98-107) Carbon Dioxide Level 28 mmol/L (21-32) Anion Gap 13 (6-14) Blood Urea Nitrogen 11 mg/dL (7-20) Creatinine 0.9 mg/dL (0.6-1.0) Estimated GFR (Cockcroft-Gault) 74.9 Glucose Level 212 mg/dL (70-99) Calcium Level 9.8 mg/dL (8.5-10.1) Phosphorus Level 2.0 mg/dL (2.6-4.7) Albumin 3.9 g/dL (3.4-5.0) White Blood Count 12.5 x10^3/uL (4.0-11.0) Red Blood Count 4.85 x10^6/uL (3.50-5.40) Hemoglobin 13.2 g/dL (12.0-15.5) Hematocrit 39.2 % (36.0-47.0) Mean Corpuscular Volume 81 fL (79-100) Mean Corpuscular Hemoglobin 27 pg (25-35) Mean Corpuscular Hemoglobin Concent 34 g/dL (31-37) Red Cell Distribution Width 20.6 % (11.5-14.5) Platelet Count 237 x10^3/uL (140-400) Neutrophils (%) (Auto) 74 % (31-73) Lymphocytes (%) (Auto) 18 % (24-48) Monocytes (%) (Auto) 7 % (0-9) Eosinophils (%) (Auto) 0 % (0-3) Basophils (%) (Auto) 1 % (0-3) Neutrophils # (Auto) 9.2 x10^3uL (1.8-7.7) Lymphocytes # (Auto) 2.2 x10^3/uL (1.0-4.8) Monocytes # (Auto) 0.9 x10^3/uL (0.0-1.1) Eosinophils # (Auto) 0.0 x10^3/uL (0.0-0.7) Basophils # (Auto) 0.1 x10^3/uL (0.0-0.2) Glucose (Fingerstick) 215 mg/dL (70-99) Assessment and Plan Assessmemt and Plan Problems Medical Problems: (1) Right sided weakness Status: Acute Comment Review of Relevant I have reviewed the following items mert (where applicable) has been applied. Labs Laboratory Tests Test 11/29/17 11:01 11/29/17 12:13 11/29/17 13:59 11/29/17 16:12 Glucose (Fingerstick) 201 mg/dL (70-99) 228 mg/dL (70-99) 227 mg/dL (70-99) White Blood Count 16.0 x10^3/uL (4.0-11.0) Red Blood Count 4.61 x10^6/uL (3.50-5.40) Hemoglobin 12.6 g/dL (12.0-15.5) Hematocrit 36.9 % (36.0-47.0) Mean Corpuscular Volume 80 fL (79-100) Mean Corpuscular Hemoglobin 27 pg (25-35) Mean Corpuscular Hemoglobin Concent 34 g/dL (31-37) Red Cell Distribution Width 21.8 % (11.5-14.5) Platelet Count 250 x10^3/uL (140-400) Neutrophils (%) (Auto) 80 % (31-73) Lymphocytes (%) (Auto) 14 % (24-48) Monocytes (%) (Auto) 6 % (0-9) Eosinophils (%) (Auto) 0 % (0-3) Basophils (%) (Auto) 0 % (0-3) Neutrophils # (Auto) 12.8 x10^3uL (1.8-7.7) Lymphocytes # (Auto) 2.2 x10^3/uL (1.0-4.8) Monocytes # (Auto) 1.0 x10^3/uL (0.0-1.1) Eosinophils # (Auto) 0.0 x10^3/uL (0.0-0.7) Basophils # (Auto) 0.0 x10^3/uL (0.0-0.2) Segmented Neutrophils % 85 % (35-66) Lymphocytes % 10 % (24-48) Monocytes % 5 % (0-10) Platelet Estimate Adequate (ADEQUATE) Anisocytosis Mod Sodium Level 138 mmol/L (136-145) Potassium Level 3.9 mmol/L (3.5-5.1) Chloride Level 97 mmol/L (98-107) Carbon Dioxide Level 26 mmol/L (21-32) Anion Gap 15 (6-14) Blood Urea Nitrogen 24 mg/dL (7-20) Creatinine 1.2 mg/dL (0.6-1.0) Estimated GFR (Cockcroft-Gault) 53.7 Glucose Level 220 mg/dL (70-99) Calcium Level 10.7 mg/dL (8.5-10.1) Phosphorus Level 3.2 mg/dL (2.6-4.7) Troponin I Quantitative < 0.017 ng/mL (0.000-0.055) Albumin 4.0 g/dL (3.4-5.0) Thyroid Stimulating Hormone (TSH) 0.730 uIU/mL (0.358-3.74) Test 11/29/17 19:20 11/29/17 19:47 11/30/17 07:21 11/30/17 11:45 Estimated GFR (Non- 62 (>59) EGFR 72 (>59) PTH (Intact) Specimen Description Comment (.) Parathyroid Hormone (Intact) 33 pg/mL (15-65) Calcium (PTH Intact) 11.1 mg/dL (8.7-10.3) Creatinine (PTH Intact) 0.93 mg/dL (0.57-1.00) Phosphorus (PTH Intact) 2.7 mg/dL (2.5-4.5) Glucose (Fingerstick) 188 mg/dL (70-99) 227 mg/dL (70-99) White Blood Count 17.4 x10^3/uL (4.0-11.0) Red Blood Count 4.86 x10^6/uL (3.50-5.40) Hemoglobin 13.4 g/dL (12.0-15.5) Hematocrit 38.8 % (36.0-47.0) Mean Corpuscular Volume 80 fL (79-100) Mean Corpuscular Hemoglobin 28 pg (25-35) Mean Corpuscular Hemoglobin Concent 35 g/dL (31-37) Red Cell Distribution Width 21.4 % (11.5-14.5) Platelet Count 256 x10^3/uL (140-400) Neutrophils (%) (Auto) 71 % (31-73) Lymphocytes (%) (Auto) 19 % (24-48) Monocytes (%) (Auto) 9 % (0-9) Eosinophils (%) (Auto) 0 % (0-3) Basophils (%) (Auto) 1 % (0-3) Neutrophils # (Auto) 12.3 x10^3uL (1.8-7.7) Lymphocytes # (Auto) 3.3 x10^3/uL (1.0-4.8) Monocytes # (Auto) 1.6 x10^3/uL (0.0-1.1) Eosinophils # (Auto) 0.0 x10^3/uL (0.0-0.7) Basophils # (Auto) 0.1 x10^3/uL (0.0-0.2) Sodium Level 137 mmol/L (136-145) Potassium Level 3.1 mmol/L (3.5-5.1) Chloride Level 96 mmol/L (98-107) Carbon Dioxide Level 25 mmol/L (21-32) Anion Gap 16 (6-14) Blood Urea Nitrogen 15 mg/dL (7-20) Creatinine 1.2 mg/dL (0.6-1.0) Estimated GFR (Cockcroft-Gault) 53.7 Glucose Level 215 mg/dL (70-99) Calcium Level 10.0 mg/dL (8.5-10.1) Phosphorus Level 2.5 mg/dL (2.6-4.7) Albumin 4.0 g/dL (3.4-5.0) Test 11/30/17 11:59 11/30/17 17:10 11/30/17 20:22 12/01/17 04:32 Glucose (Fingerstick) 210 mg/dL (70-99) 173 mg/dL (70-99) 212 mg/dL (70-99) Sodium Level 137 mmol/L (136-145) Potassium Level 3.4 mmol/L (3.5-5.1) Chloride Level 96 mmol/L (98-107) Carbon Dioxide Level 28 mmol/L (21-32) Anion Gap 13 (6-14) Blood Urea Nitrogen 11 mg/dL (7-20) Creatinine 0.9 mg/dL (0.6-1.0) Estimated GFR (Cockcroft-Gault) 74.9 Glucose Level 212 mg/dL (70-99) Calcium Level 9.8 mg/dL (8.5-10.1) Phosphorus Level 2.0 mg/dL (2.6-4.7) Albumin 3.9 g/dL (3.4-5.0) Test 12/01/17 04:50 12/01/17 07:19 White Blood Count 12.5 x10^3/uL (4.0-11.0) Red Blood Count 4.85 x10^6/uL (3.50-5.40) Hemoglobin 13.2 g/dL (12.0-15.5) Hematocrit 39.2 % (36.0-47.0) Mean Corpuscular Volume 81 fL (79-100) Mean Corpuscular Hemoglobin 27 pg (25-35) Mean Corpuscular Hemoglobin Concent 34 g/dL (31-37) Red Cell Distribution Width 20.6 % (11.5-14.5) Platelet Count 237 x10^3/uL (140-400) Neutrophils (%) (Auto) 74 % (31-73) Lymphocytes (%) (Auto) 18 % (24-48) Monocytes (%) (Auto) 7 % (0-9) Eosinophils (%) (Auto) 0 % (0-3) Basophils (%) (Auto) 1 % (0-3) Neutrophils # (Auto) 9.2 x10^3uL (1.8-7.7) Lymphocytes # (Auto) 2.2 x10^3/uL (1.0-4.8) Monocytes # (Auto) 0.9 x10^3/uL (0.0-1.1) Eosinophils # (Auto) 0.0 x10^3/uL (0.0-0.7) Basophils # (Auto) 0.1 x10^3/uL (0.0-0.2) Glucose (Fingerstick) 215 mg/dL (70-99) Laboratory Tests Test 11/30/17 11:45 11/30/17 11:59 11/30/17 17:10 11/30/17 20:22 White Blood Count 17.4 x10^3/uL (4.0-11.0) Red Blood Count 4.86 x10^6/uL (3.50-5.40) Hemoglobin 13.4 g/dL (12.0-15.5) Hematocrit 38.8 % (36.0-47.0) Mean Corpuscular Volume 80 fL (79-100) Mean Corpuscular Hemoglobin 28 pg (25-35) Mean Corpuscular Hemoglobin Concent 35 g/dL (31-37) Red Cell Distribution Width 21.4 % (11.5-14.5) Platelet Count 256 x10^3/uL (140-400) Neutrophils (%) (Auto) 71 % (31-73) Lymphocytes (%) (Auto) 19 % (24-48) Monocytes (%) (Auto) 9 % (0-9) Eosinophils (%) (Auto) 0 % (0-3) Basophils (%) (Auto) 1 % (0-3) Neutrophils # (Auto) 12.3 x10^3uL (1.8-7.7) Lymphocytes # (Auto) 3.3 x10^3/uL (1.0-4.8) Monocytes # (Auto) 1.6 x10^3/uL (0.0-1.1) Eosinophils # (Auto) 0.0 x10^3/uL (0.0-0.7) Basophils # (Auto) 0.1 x10^3/uL (0.0-0.2) Sodium Level 137 mmol/L (136-145) Potassium Level 3.1 mmol/L (3.5-5.1) Chloride Level 96 mmol/L (98-107) Carbon Dioxide Level 25 mmol/L (21-32) Anion Gap 16 (6-14) Blood Urea Nitrogen 15 mg/dL (7-20) Creatinine 1.2 mg/dL (0.6-1.0) Estimated GFR (Cockcroft-Gault) 53.7 Glucose Level 215 mg/dL (70-99) Calcium Level 10.0 mg/dL (8.5-10.1) Phosphorus Level 2.5 mg/dL (2.6-4.7) Albumin 4.0 g/dL (3.4-5.0) Glucose (Fingerstick) 210 mg/dL (70-99) 173 mg/dL (70-99) 212 mg/dL (70-99) Test 12/01/17 04:32 12/01/17 04:50 12/01/17 07:19 Sodium Level 137 mmol/L (136-145) Potassium Level 3.4 mmol/L (3.5-5.1) Chloride Level 96 mmol/L (98-107) Carbon Dioxide Level 28 mmol/L (21-32) Anion Gap 13 (6-14) Blood Urea Nitrogen 11 mg/dL (7-20) Creatinine 0.9 mg/dL (0.6-1.0) Estimated GFR (Cockcroft-Gault) 74.9 Glucose Level 212 mg/dL (70-99) Calcium Level 9.8 mg/dL (8.5-10.1) Phosphorus Level 2.0 mg/dL (2.6-4.7) Albumin 3.9 g/dL (3.4-5.0) White Blood Count 12.5 x10^3/uL (4.0-11.0) Red Blood Count 4.85 x10^6/uL (3.50-5.40) Hemoglobin 13.2 g/dL (12.0-15.5) Hematocrit 39.2 % (36.0-47.0) Mean Corpuscular Volume 81 fL (79-100) Mean Corpuscular Hemoglobin 27 pg (25-35) Mean Corpuscular Hemoglobin Concent 34 g/dL (31-37) Red Cell Distribution Width 20.6 % (11.5-14.5) Platelet Count 237 x10^3/uL (140-400) Neutrophils (%) (Auto) 74 % (31-73) Lymphocytes (%) (Auto) 18 % (24-48) Monocytes (%) (Auto) 7 % (0-9) Eosinophils (%) (Auto) 0 % (0-3) Basophils (%) (Auto) 1 % (0-3) Neutrophils # (Auto) 9.2 x10^3uL (1.8-7.7) Lymphocytes # (Auto) 2.2 x10^3/uL (1.0-4.8) Monocytes # (Auto) 0.9 x10^3/uL (0.0-1.1) Eosinophils # (Auto) 0.0 x10^3/uL (0.0-0.7) Basophils # (Auto) 0.1 x10^3/uL (0.0-0.2) Glucose (Fingerstick) 215 mg/dL (70-99) Microbiology 11/27/17 Urine Culture - Preliminary, Resulted 11/27/17 Urine Culture Result 1 (CABRERA) - Preliminary, Resulted Medications Current Medications Influenza Virus Vaccine (Afluria Trivalent [id number] Syringe) 0.5 ml ONCE ONCE VAX IM Last administered on 11/27/17at 17:55; Start 11/27/17 at 17:00; Stop 11/27/17 at 17:01; Status DC Amitriptyline HCl (Elavil) 50 mg QHS PO Last administered on 11/30/17at 20:44; Start 11/27/17 at 21:00 Amlodipine Besylate (Norvasc) 10 mg BID PO ; Start 11/27/17 at 21:00; Stop 11/27 at 21:00; Status DC Docusate Sodium (Colace) 100 mg DAILY PO Last administered on 12/01/17 07:57; Start 11/28/17 at 09:00 Acetaminophen/ Hydrocodone Bitart (Lortab 5/325) 1 tab PRN BID PRN PO MODERATE PAIN Last administered on 12/01/17at 00:53; Start 11/27/17 at 15:30 Levothyroxine Sodium (Synthroid) 100 mcg DAILY05 PO Last administered on 04:03; Start 11/28/17 at 05:00 Metoclopramide HCl (Reglan) 10 mg PRN TID PRN PO NAUSEA Last administered on 04:07; Start 11/27/17 at 15:30 Metoprolol Succinate (Toprol Xl) 100 mg DAILY PO Last administered on 08:43; Start 11/28/17 at 09:00; Status Future Hold Trazodone HCl (Desyrel) 50 mg DAILY PO Last administered on 11/28/17at 08:44; Start 11/28/17 at 09:00; Stop 11/29/17 at 08:54; Status DC Zolpidem Tartrate (Ambien) 5 mg PRN QHS PRN PO INSOMNIA Last administered on 20:15; Start 11/27/17 at 15:30 Insulin Glargine (Lantus) 20 units QHS SQ Last administered on 11/30/17at 20:53 ; Start 11/27/17 at 21:00 Ferrous Sulfate (Feosol) 325 mg DAILYWBKFT PO Last administered on 11/28/17at 08 :42; Start 11/28/17 at 08:00 Losartan Potassium (Cozaar) 100 mg DAILY PO Last administered on 11/28/17at 08: 42; Start 11/28/17 at 09:00; Stop 11/30/17 at 07:51; Status DC Metformin HCl (Glucophage) 1,000 mg BIDWMEALS PO ; Start 11/27/17 at 17:00; Stop 11/27/17 at 17:00; Status DC Non-Formulary Medication (Omeprazole ) 1 cap DAILY06 PO ; Start 11/28/17 at 06: 00; Stop 11/28/17 at 06:00; Status DC Pantoprazole Sodium (Protonix) 40 mg DAILYAC PO Last administered on 11/28/17 08:42; Start 11/28/17 at 07:30 Potassium Chloride (Klor-Con) 20 meq DAILYWBKFT PO Last administered on at 08:44; Start 11/28/17 at 08:00 Simvastatin (Zocor) 20 mg HS PO Last administered on 11/30/17at 20:44; Start at 21:00 Spironolactone (Aldactone) 50 mg DAILY PO Last administered on 12/01/17 07:56 ; Start 11/28/17 at 09:00 Sucralfate (Carafate) 1 gm QIDACHS PO Last administered on 12/01/17 07:56; Start 11/27/17 at 16:30 Insulin Human Lispro (HumaLOG) 0-9 UNITS TIDWMEALS SQ Last administered on 12/01at 08:05; Start 11/27/17 at 17:00 Dextrose (Dextrose 50%-Water Syringe) 12.5 gm PRN Q15MIN PRN IV SEE COMMENTS; Start 11/27/17 at 15:30 Hydrochlorothiazide (Microzide) 12.5 mg DAILY PO Last administered on at 08:43; Start 11/28/17 at 09:00; Stop 11/30/17 at 07:51; Status DC Amlodipine Besylate (Norvasc) 10 mg DAILY PO Last administered on 12/01/17at 07: 55; Start 11/28/17 at 09:00 Aspirin (Evelina Aspirin) 325 mg 1X ONCE PO Last administered on 11/27/17at 17:52 ; Start 11/27/17 at 16:15; Stop 11/27/17 at 16:16; Status DC Metformin HCl (Glucophage) 1,000 mg BIDWMEALS PO Last administered on 16:18; Start 11/27/17 at 17:00; Stop 11/29/17 at 14:55; Status DC Methylprednisolone Acetate (DEPO-Medrol 40MG VIAL) 40 mg 1X ONCE IM Last administered on 11/28/17at 09:15; Start 11/28/17 at 09:15; Stop 11/28/17 at 09:16 ; Status DC Bupivacaine HCl (Sensorcaine-Mpf 0.25%) 10 ml 1X ONCE IJ Last administered on 11/28/17at 09:15; Start 11/28/17 at 09:15; Stop 11/28/17 at 09:16; Status DC Metoprolol Tartrate (Lopressor Vial) 2.5 mg PRN Q3HRS PRN IVP HYPERTENSION, SEE COMMENTS; Start 11/28/17 at 10:45 Morphine Sulfate (Morphine Sulfate) 2 mg 1X ONCE IM ; Start 11/28/17 at 16:00; Stop 11/28/17 at 16:20; Status DC Morphine Sulfate (Morphine Sulfate) 2 mg 1X ONCE IV Last administered on at 16:22; Start 11/28/17 at 16:30; Stop 11/28/17 at 16:31; Status DC Vitamin D (Vitamin D3) 5,000 unit DAILY PO ; Start 11/29/17 at 09:00 Trazodone HCl (Desyrel) 50 mg QHS PO Last administered on 11/30/17at 20:44; Start 11/29/17 at 21:00 Ondansetron HCl (Zofran) 4 mg PRN Q6HRS PRN IV NAUSEA/VOMITING, 1st CHOICE Last administered on 12/01/17at 00:53; Start 11/29/17 at 10:15 Lactulose (Lactulose) 20 gm PRN DAILY PRN PO CONSTIPATION Last administered on 11/29/17at 20:16; Start 11/29/17 at 12:15 Metoclopramide HCl (Reglan Vial) 5 mg PRN Q6HRS PRN IV NAUSEA/VOMITING, 2nd CHOICE Last administered on 12/01/17at 04:05; Start 11/29/17 at 12:15 Metoprolol Tartrate (Lopressor Vial) 5 mg Q4HRS IVP Last administered on at 07:54; Start 11/29/17 at 16:30 Morphine Sulfate (Morphine Sulfate) 2 mg PRN Q4HRS PRN IV MODERATE TO SEVERE PAIN Last administered on 11/30/17at 16:45; Start 11/30/17 at 07:45; Stop at 17:18; Status DC Sodium Chloride 1,000 ml @ 100 mls/hr Q10H IV Last administered on 11/30/17at 08:21; Start 11/30/17 at 08:00; Stop 11/30/17 at 17:18; Status DC Ceftriaxone Sodium (Rocephin) 1 gm Q24H IVP Last administered on 11/30/17at 16: 18; Start 11/30/17 at 15:30 Morphine Sulfate (Morphine Sulfate) 2 mg PRN Q3HRS PRN IV MODERATE TO SEVERE PAIN Last administered on 12/01/17at 07:53; Start 11/30/17 at 17:30 Potassium Chloride/Sodium Chloride 1,000 ml @ 100 mls/hr Q10H IV Last administered on 12/01/17at 04:05; Start 11/30/17 at 17:30 Active Scripts Active Levemir Flextouch (Insulin Detemir) 100 Unit/1 Ml Insuln.pen 20 Unit SQ QHS 30 Days Reported Metformin Hcl 1,000 Mg Tablet 1,000 Mg PO BIDWMEALS Ferralet 90 Dual-Iron Tablet (Iron, Carb & Gluc/Fa/B12/C/Dss) 1 Each Tablet 1 Tab PO DAILY Reglan (Metoclopramide Hcl) 10 Mg Tablet 1 Tab PO TID PRN Sucralfate 1 Gm Tablet 1 Tab PO QIDACHS Metoprolol Succinate ( Xl ) (Metoprolol Succinate) 100 Mg Tab.er.24h 1 Tab PO DAILY Simvastatin 20 Mg Tablet 1 Tab PO QHS [place] 5-325 Tablet (Acetaminophen/Hydrocodone Bitart) 1 Each Tablet 1 Tab PO BID PRN Levothyroxine Sodium 100 Mcg Tablet 1 Tab PO DAILY05 Spironolactone 50 Mg Tablet 1 Tab PO DAILY Docusate Sodium 100 Mg Capsule 1 Cap PO DAILY Trazodone Hcl 50 Mg Tablet 50 Mg PO QHS Omeprazole 40 Mg Capsule.dr 1 Cap PO DAILY06 Ibuprofen 800 Mg Tablet 800 Mg PO TID PRN Losartan-Hctz 100-12.5 Mg Tab (Losartan/Hydrochlorothiazide) 1 Each Tablet 1 Tab PO DAILY Amitriptyline Hcl 50 Mg Tablet 1 Tab PO QHS Ambien (Zolpidem Tartrate) 5 Mg Tablet 5 Mg PO HS PRN Potassium Chloride 20 Meq Tablet.er 20 Meq PO DAILY Protonix (Pantoprazole Sodium) 20 Mg Tablet.dr 40 Mg PO DAILYAC Amlodipine Besylate 10 Mg Tablet 10 Mg PO BID Vitals/I & O Vital Sign - Last 24 Hours 1011/30/17 11/30/17 11/30/17 11:00 12:36 12:43 15:00 Temp 98.4 98.4 98.4 98.4 Pulse 108 108 107 Resp 16 16 B/P (MAP) 132/91 (105) 132/91 165/95 (118) Pulse Ox 97 97 96 O2 Delivery Room Air Room Air Room Air 11/30/17 11/30/17 11/30/17 11/30/17 15:17 16:19 16:45 19:49 Temp 99.7 99.7 Pulse 107 97 Resp 16 B/P (MAP) 165/95 143/93 (110) Pulse Ox 97 97 95 O2 Delivery Room Air Room Air Room Air 11/30/17 11/30/17 11/30/17 12/01/17 20:00 20:45 23:02 00:19 Temp 97.9 97.9 Pulse 97 112 112 Resp 16 B/P (MAP) 143/93 152/95 (114) 152/95 Pulse Ox 98 O2 Delivery Room Air Room Air 12/01/17 12/01/17 12/01/17 12/01/17 00:53 01:53 03:44 04:04 Temp 99.3 99.3 Pulse 100 100 Resp 16 B/P (MAP) 187/113 (137) 187/113 Pulse Ox 98 98 95 O2 Delivery Room Air Room Air Room Air 12/01/17 12/01/17 12/01/17 12/01/17 04:04 04:34 07:05 07:53 Temp 97.5 97.5 Pulse 111 Resp 18 17 B/P (MAP) 188/118 (141) Pulse Ox 95 95 96 96 O2 Delivery Room Air Room Air Room Air Room Air 12/01/17 12/01/17 12/01/17 07:54 07:55 08:11 Pulse 111 111 B/P (MAP) 188/118 188/118 O2 Delivery Room Air Intake and Output 11/30/17 11/30/17 12/01/17 15:00 23:00 07:00 Intake Total 240 ml 360 ml Balance 240 ml 360 ml BOBBY ALVAREZ MD Dec 01, 2017 08:46
--- NOTE | 2017-12-01 09:09 | PDOC ---
Subjective: Subjective: Not feeling well. Has a headache, didn't feel like eating breakfast. Says vomited around 5:00 a.m. - looked like "bile and spinach." Stooled yesterday. Objective: Objective: D/w RN - had plans to DC Fri, daughter would like her to go to [facility]. Vital Signs: Vital Signs Date Time Temp Pulse Resp B/P (MAP) Pulse Ox O2 Delivery O2 Flow Rate FiO2 12/01/17 08:11 Room Air 12/01/17 07:55 111 188/118 12/01/17 07:53 96 12/01/17 07:05 97.5 17 97.5 Labs: Laboratory Tests Test 11/30/17 11:59 11/30/17 17:10 11/30/17 20:22 12/01/17 07:19 Glucose (Fingerstick) 210 mg/dL (70-99) 173 mg/dL (70-99) 212 mg/dL (70-99) 215 mg/dL (70-99) PE: GEN: NAD LUNGS: CTAB HEART: RRR ABD: soft, ?tender - hard to tell NEURO/PSYCH: A & O 3 A/P: Decreased appetite, n/v, abd pain -h/o gastroparesis, GERD -has tried Reglan, e-mycin, also h/o J tube placement/dislodgement -can document 'scopes in 2008, probably repeated w/ Dr. Novoa since -has PO PPI, Carafate, PO and IV Reglan UTI, mild cognitive impairment -- Unfortunately, these are chronic/recurrent GI issues. Other per Dr. Merritt. HARLEY GOEL Dec 01, 2017 09:09
--- NOTE | 2017-12-01 10:36 | PDOC ---
PROGRESS NOTES Assessment Problems Medical Problems: (1) Right sided weakness Status: Acute She stayed over the weekend because of symptoms of her chronic gastroparesis as well as hypercalcemia. She was confused over the weekend Gait disorder, mainly due to arthritis, may be some component of a mild peripheral neuropathy as evidenced only by decreased reflexes. Mild cognitive impairment. Right-sided weakness and dysarthria, patient denies this, but did talk about it in the emergency department. No sign of acute stroke. Prior workup for left-sided symptoms was negative in September. 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 No additional neuro studies needed Treatment and workup of hypercalcemia Follow-up with neurology as needed. Subjective Complains of nausea, denies headache Objective Vital Signs Date Time Temp Pulse Resp B/P (MAP) Pulse Ox O2 Delivery O2 Flow Rate FiO2 12/01/17 09:35 96 Room Air 12/01/17 07:55 111 188/118 12/01/17 07:05 97.5 17 97.5 Intake and Output 12/01/17 06:59 Intake Total 600 ml Balance 600 ml Intake Oral 600 ml # Voids 7 PHYSICAL EXAM Alert. Oriented to time, place and person. PERRL. EOMI. CN: no focal findings. Muscle tone: normal. Muscle strength: 5/5 DTR: 1+ Plantar reflex: flexor Gait: not examined in bed. Sensory exam: no abnormal findings. No cerebellar signs elicited. Review of Relevant I have reviewed the following items mert (where applicable) has been applied. Labs Laboratory Tests Test 11/29/17 11:01 11/29/17 12:13 11/29/17 13:59 11/29/17 16:12 Glucose (Fingerstick) 201 mg/dL (70-99) 228 mg/dL (70-99) 227 mg/dL (70-99) White Blood Count 16.0 x10^3/uL (4.0-11.0) Red Blood Count 4.61 x10^6/uL (3.50-5.40) Hemoglobin 12.6 g/dL (12.0-15.5) Hematocrit 36.9 % (36.0-47.0) Mean Corpuscular Volume 80 fL (79-100) Mean Corpuscular Hemoglobin 27 pg (25-35) Mean Corpuscular Hemoglobin Concent 34 g/dL (31-37) Red Cell Distribution Width 21.8 % (11.5-14.5) Platelet Count 250 x10^3/uL (140-400) Neutrophils (%) (Auto) 80 % (31-73) Lymphocytes (%) (Auto) 14 % (24-48) Monocytes (%) (Auto) 6 % (0-9) Eosinophils (%) (Auto) 0 % (0-3) Basophils (%) (Auto) 0 % (0-3) Neutrophils # (Auto) 12.8 x10^3uL (1.8-7.7) Lymphocytes # (Auto) 2.2 x10^3/uL (1.0-4.8) Monocytes # (Auto) 1.0 x10^3/uL (0.0-1.1) Eosinophils # (Auto) 0.0 x10^3/uL (0.0-0.7) Basophils # (Auto) 0.0 x10^3/uL (0.0-0.2) Segmented Neutrophils % 85 % (35-66) Lymphocytes % 10 % (24-48) Monocytes % 5 % (0-10) Platelet Estimate Adequate (ADEQUATE) Anisocytosis Mod Sodium Level 138 mmol/L (136-145) Potassium Level 3.9 mmol/L (3.5-5.1) Chloride Level 97 mmol/L (98-107) Carbon Dioxide Level 26 mmol/L (21-32) Anion Gap 15 (6-14) Blood Urea Nitrogen 24 mg/dL (7-20) Creatinine 1.2 mg/dL (0.6-1.0) Estimated GFR (Cockcroft-Gault) 53.7 Glucose Level 220 mg/dL (70-99) Calcium Level 10.7 mg/dL (8.5-10.1) Phosphorus Level 3.2 mg/dL (2.6-4.7) Troponin I Quantitative < 0.017 ng/mL (0.000-0.055) Albumin 4.0 g/dL (3.4-5.0) Thyroid Stimulating Hormone (TSH) 0.730 uIU/mL (0.358-3.74) Test 11/29/17 19:20 11/29/17 19:47 11/30/17 07:21 11/30/17 11:45 Estimated GFR (Non- 62 (>59) EGFR 72 (>59) PTH (Intact) Specimen Description Comment (.) Parathyroid Hormone (Intact) 33 pg/mL (15-65) Calcium (PTH Intact) 11.1 mg/dL (8.7-10.3) Creatinine (PTH Intact) 0.93 mg/dL (0.57-1.00) Phosphorus (PTH Intact) 2.7 mg/dL (2.5-4.5) Glucose (Fingerstick) 188 mg/dL (70-99) 227 mg/dL (70-99) White Blood Count 17.4 x10^3/uL (4.0-11.0) Red Blood Count 4.86 x10^6/uL (3.50-5.40) Hemoglobin 13.4 g/dL (12.0-15.5) Hematocrit 38.8 % (36.0-47.0) Mean Corpuscular Volume 80 fL (79-100) Mean Corpuscular Hemoglobin 28 pg (25-35) Mean Corpuscular Hemoglobin Concent 35 g/dL (31-37) Red Cell Distribution Width 21.4 % (11.5-14.5) Platelet Count 256 x10^3/uL (140-400) Neutrophils (%) (Auto) 71 % (31-73) Lymphocytes (%) (Auto) 19 % (24-48) Monocytes (%) (Auto) 9 % (0-9) Eosinophils (%) (Auto) 0 % (0-3) Basophils (%) (Auto) 1 % (0-3) Neutrophils # (Auto) 12.3 x10^3uL (1.8-7.7) Lymphocytes # (Auto) 3.3 x10^3/uL (1.0-4.8) Monocytes # (Auto) 1.6 x10^3/uL (0.0-1.1) Eosinophils # (Auto) 0.0 x10^3/uL (0.0-0.7) Basophils # (Auto) 0.1 x10^3/uL (0.0-0.2) Sodium Level 137 mmol/L (136-145) Potassium Level 3.1 mmol/L (3.5-5.1) Chloride Level 96 mmol/L (98-107) Carbon Dioxide Level 25 mmol/L (21-32) Anion Gap 16 (6-14) Blood Urea Nitrogen 15 mg/dL (7-20) Creatinine 1.2 mg/dL (0.6-1.0) Estimated GFR (Cockcroft-Gault) 53.7 Glucose Level 215 mg/dL (70-99) Calcium Level 10.0 mg/dL (8.5-10.1) Phosphorus Level 2.5 mg/dL (2.6-4.7) Albumin 4.0 g/dL (3.4-5.0) Test 11/30/17 11:59 11/30/17 17:10 11/30/17 20:22 12/01/17 04:32 Glucose (Fingerstick) 210 mg/dL (70-99) 173 mg/dL (70-99) 212 mg/dL (70-99) Sodium Level 137 mmol/L (136-145) Potassium Level 3.4 mmol/L (3.5-5.1) Chloride Level 96 mmol/L (98-107) Carbon Dioxide Level 28 mmol/L (21-32) Anion Gap 13 (6-14) Blood Urea Nitrogen 11 mg/dL (7-20) Creatinine 0.9 mg/dL (0.6-1.0) Estimated GFR (Cockcroft-Gault) 74.9 Glucose Level 212 mg/dL (70-99) Calcium Level 9.8 mg/dL (8.5-10.1) Phosphorus Level 2.0 mg/dL (2.6-4.7) Albumin 3.9 g/dL (3.4-5.0) Test 12/01/17 04:50 12/01/17 07:19 White Blood Count 12.5 x10^3/uL (4.0-11.0) Red Blood Count 4.85 x10^6/uL (3.50-5.40) Hemoglobin 13.2 g/dL (12.0-15.5) Hematocrit 39.2 % (36.0-47.0) Mean Corpuscular Volume 81 fL (79-100) Mean Corpuscular Hemoglobin 27 pg (25-35) Mean Corpuscular Hemoglobin Concent 34 g/dL (31-37) Red Cell Distribution Width 20.6 % (11.5-14.5) Platelet Count 237 x10^3/uL (140-400) Neutrophils (%) (Auto) 74 % (31-73) Lymphocytes (%) (Auto) 18 % (24-48) Monocytes (%) (Auto) 7 % (0-9) Eosinophils (%) (Auto) 0 % (0-3) Basophils (%) (Auto) 1 % (0-3) Neutrophils # (Auto) 9.2 x10^3uL (1.8-7.7) Lymphocytes # (Auto) 2.2 x10^3/uL (1.0-4.8) Monocytes # (Auto) 0.9 x10^3/uL (0.0-1.1) Eosinophils # (Auto) 0.0 x10^3/uL (0.0-0.7) Basophils # (Auto) 0.1 x10^3/uL (0.0-0.2) Glucose (Fingerstick) 215 mg/dL (70-99) Laboratory Tests Test 11/30/17 11:45 11/30/17 11:59 11/30/17 17:10 11/30/17 20:22 White Blood Count 17.4 x10^3/uL (4.0-11.0) Red Blood Count 4.86 x10^6/uL (3.50-5.40) Hemoglobin 13.4 g/dL (12.0-15.5) Hematocrit 38.8 % (36.0-47.0) Mean Corpuscular Volume 80 fL (79-100) Mean Corpuscular Hemoglobin 28 pg (25-35) Mean Corpuscular Hemoglobin Concent 35 g/dL (31-37) Red Cell Distribution Width 21.4 % (11.5-14.5) Platelet Count 256 x10^3/uL (140-400) Neutrophils (%) (Auto) 71 % (31-73) Lymphocytes (%) (Auto) 19 % (24-48) Monocytes (%) (Auto) 9 % (0-9) Eosinophils (%) (Auto) 0 % (0-3) Basophils (%) (Auto) 1 % (0-3) Neutrophils # (Auto) 12.3 x10^3uL (1.8-7.7) Lymphocytes # (Auto) 3.3 x10^3/uL (1.0-4.8) Monocytes # (Auto) 1.6 x10^3/uL (0.0-1.1) Eosinophils # (Auto) 0.0 x10^3/uL (0.0-0.7) Basophils # (Auto) 0.1 x10^3/uL (0.0-0.2) Sodium Level 137 mmol/L (136-145) Potassium Level 3.1 mmol/L (3.5-5.1) Chloride Level 96 mmol/L (98-107) Carbon Dioxide Level 25 mmol/L (21-32) Anion Gap 16 (6-14) Blood Urea Nitrogen 15 mg/dL (7-20) Creatinine 1.2 mg/dL (0.6-1.0) Estimated GFR (Cockcroft-Gault) 53.7 Glucose Level 215 mg/dL (70-99) Calcium Level 10.0 mg/dL (8.5-10.1) Phosphorus Level 2.5 mg/dL (2.6-4.7) Albumin 4.0 g/dL (3.4-5.0) Glucose (Fingerstick) 210 mg/dL (70-99) 173 mg/dL (70-99) 212 mg/dL (70-99) Test 12/01/17 04:32 12/01/17 04:50 12/01/17 07:19 Sodium Level 137 mmol/L (136-145) Potassium Level 3.4 mmol/L (3.5-5.1) Chloride Level 96 mmol/L (98-107) Carbon Dioxide Level 28 mmol/L (21-32) Anion Gap 13 (6-14) Blood Urea Nitrogen 11 mg/dL (7-20) Creatinine 0.9 mg/dL (0.6-1.0) Estimated GFR (Cockcroft-Gault) 74.9 Glucose Level 212 mg/dL (70-99) Calcium Level 9.8 mg/dL (8.5-10.1) Phosphorus Level 2.0 mg/dL (2.6-4.7) Albumin 3.9 g/dL (3.4-5.0) White Blood Count 12.5 x10^3/uL (4.0-11.0) Red Blood Count 4.85 x10^6/uL (3.50-5.40) Hemoglobin 13.2 g/dL (12.0-15.5) Hematocrit 39.2 % (36.0-47.0) Mean Corpuscular Volume 81 fL (79-100) Mean Corpuscular Hemoglobin 27 pg (25-35) Mean Corpuscular Hemoglobin Concent 34 g/dL (31-37) Red Cell Distribution Width 20.6 % (11.5-14.5) Platelet Count 237 x10^3/uL (140-400) Neutrophils (%) (Auto) 74 % (31-73) Lymphocytes (%) (Auto) 18 % (24-48) Monocytes (%) (Auto) 7 % (0-9) Eosinophils (%) (Auto) 0 % (0-3) Basophils (%) (Auto) 1 % (0-3) Neutrophils # (Auto) 9.2 x10^3uL (1.8-7.7) Lymphocytes # (Auto) 2.2 x10^3/uL (1.0-4.8) Monocytes # (Auto) 0.9 x10^3/uL (0.0-1.1) Eosinophils # (Auto) 0.0 x10^3/uL (0.0-0.7) Basophils # (Auto) 0.1 x10^3/uL (0.0-0.2) Glucose (Fingerstick) 215 mg/dL (70-99) Microbiology 11/27/17 Urine Culture - Preliminary, Resulted 11/27/17 Urine Culture Result 1 (CABRERA) - Preliminary, Resulted Medications Current Medications Influenza Virus Vaccine (Afluria Trivalent [id number] Syringe) 0.5 ml ONCE ONCE VAX IM Last administered on 11/27/17at 17:55; Start 11/27/17 at 17:00; Stop 11/27/17 at 17:01; Status DC Amitriptyline HCl (Elavil) 50 mg QHS PO Last administered on 11/30/17at 20:44; Start 11/27/17 at 21:00 Amlodipine Besylate (Norvasc) 10 mg BID PO ; Start 11/27/17 at 21:00; Stop 11/27 at 21:00; Status DC Docusate Sodium (Colace) 100 mg DAILY PO Last administered on 12/01/17at 07:57; Start 11/28/17 at 09:00 Acetaminophen/ Hydrocodone Bitart (Lortab 5/325) 1 tab PRN BID PRN PO MODERATE PAIN Last administered on 12/01/17at 00:53; Start 11/27/17 at 15:30 Levothyroxine Sodium (Synthroid) 100 mcg DAILY05 PO Last administered on 04:03; Start 11/28/17 at 05:00 Metoclopramide HCl (Reglan) 10 mg PRN TID PRN PO NAUSEA Last administered on 04:07; Start 11/27/17 at 15:30 Metoprolol Succinate (Toprol Xl) 100 mg DAILY PO Last administered on 08:43; Start 11/28/17 at 09:00; Stop 12/01/17 at 10:07; Status DC Trazodone HCl (Desyrel) 50 mg DAILY PO Last administered on 11/28/17at 08:44; Start 11/28/17 at 09:00; Stop 11/29/17 at 08:54; Status DC Zolpidem Tartrate (Ambien) 5 mg PRN QHS PRN PO INSOMNIA Last administered on at 20:15; Start 11/27/17 at 15:30 Insulin Glargine (Lantus) 20 units QHS SQ Last administered on 11/30/17at 20:53 ; Start 11/27/17 at 21:00 Ferrous Sulfate (Feosol) 325 mg DAILYWBKFT PO Last administered on 11/28/17at 08 :42; Start 11/28/17 at 08:00 Losartan Potassium (Cozaar) 100 mg DAILY PO Last administered on 11/28/17at 08: 42; Start 11/28/17 at 09:00; Stop 11/30/17 at 07:51; Status DC Metformin HCl (Glucophage) 1,000 mg BIDWMEALS PO ; Start 11/27/17 at 17:00; Stop 11/27/17 at 17:00; Status DC Non-Formulary Medication (Omeprazole ) 1 cap DAILY06 PO ; Start 11/28/17 at 06: 00; Stop 11/28/17 at 06:00; Status DC Pantoprazole Sodium (Protonix) 40 mg DAILYAC PO Last administered on 10/5/18at 08:42; Start 11/28/17 at 07:30 Potassium Chloride (Klor-Con) 20 meq DAILYWBKFT PO Last administered on at 08:44; Start 11/28/17 at 08:00 Simvastatin (Zocor) 20 mg HS PO Last administered on 11/30/17at 20:44; Start at 21:00 Spironolactone (Aldactone) 50 mg DAILY PO Last administered on 12/01/17at 07:56 ; Start 11/28/17 at 09:00 Sucralfate (Carafate) 1 gm QIDACHS PO Last administered on 12/01/17 07:56; Start 11/27/17 at 16:30 Insulin Human Lispro (HumaLOG) 0-9 UNITS TIDWMEALS SQ Last administered on 12/01at 08:05; Start 11/27/17 at 17:00 Dextrose (Dextrose 50%-Water Syringe) 12.5 gm PRN Q15MIN PRN IV SEE COMMENTS; Start 11/27/17 at 15:30 Hydrochlorothiazide (Microzide) 12.5 mg DAILY PO Last administered on at 08:43; Start 11/28/17 at 09:00; Stop 11/30/17 at 07:51; Status DC Amlodipine Besylate (Norvasc) 10 mg DAILY PO Last administered on 12/01/17at 07: 55; Start 11/28/17 at 09:00 Aspirin (Evelina Aspirin) 325 mg 1X ONCE PO Last administered on 11/27/17at 17:52 ; Start 11/27/17 at 16:15; Stop 11/27/17 at 16:16; Status DC Metformin HCl (Glucophage) 1,000 mg BIDWMEALS PO Last administered on 16:18; Start 11/27/17 at 17:00; Stop 11/29/17 at 14:55; Status DC Methylprednisolone Acetate (DEPO-Medrol 40MG VIAL) 40 mg 1X ONCE IM Last administered on 11/28/17at 09:15; Start 11/28/17 at 09:15; Stop 11/28/17 at 09:16 ; Status DC Bupivacaine HCl (Sensorcaine-Mpf 0.25%) 10 ml 1X ONCE IJ Last administered on 11/28/17at 09:15; Start 11/28/17 at 09:15; Stop 11/28/17 at 09:16; Status DC Metoprolol Tartrate (Lopressor Vial) 2.5 mg PRN Q3HRS PRN IVP HYPERTENSION, SEE COMMENTS; Start 11/28/17 at 10:45 Morphine Sulfate (Morphine Sulfate) 2 mg 1X ONCE IM ; Start 11/28/17 at 16:00; Stop 11/28/17 at 16:20; Status DC Morphine Sulfate (Morphine Sulfate) 2 mg 1X ONCE IV Last administered on at 16:22; Start 11/28/17 at 16:30; Stop 11/28/17 at 16:31; Status DC Vitamin D (Vitamin D3) 5,000 unit DAILY PO ; Start 11/29/17 at 09:00 Trazodone HCl (Desyrel) 50 mg QHS PO Last administered on 11/30/17at 20:44; Start 11/29/17 at 21:00 Ondansetron HCl (Zofran) 4 mg PRN Q6HRS PRN IV NAUSEA/VOMITING, 1st CHOICE Last administered on 12/01/17 00:53; Start 11/29/17 at 10:15 Lactulose (Lactulose) 20 gm PRN DAILY PRN PO CONSTIPATION Last administered on 11/29/17 20:16; Start 11/29/17 at 12:15 Metoclopramide HCl (Reglan Vial) 5 mg PRN Q6HRS PRN IV NAUSEA/VOMITING, 2nd CHOICE Last administered on 12/01/17at 04:05; Start 11/29/17 at 12:15 Metoprolol Tartrate (Lopressor Vial) 5 mg Q4HRS IVP Last administered on 07:54; Start 11/29/17 at 16:30 Morphine Sulfate (Morphine Sulfate) 2 mg PRN Q4HRS PRN IV MODERATE TO SEVERE PAIN Last administered on 11/30/17at 16:45; Start 11/30/17 at 07:45; Stop at 17:18; Status DC Sodium Chloride 1,000 ml @ 100 mls/hr Q10H IV Last administered on 11/30/17 08:21; Start 11/30/17 at 08:00; Stop 11/30/17 at 17:18; Status DC Ceftriaxone Sodium (Rocephin) 1 gm Q24H IVP Last administered on 11/30/17at 16: 18; Start 11/30/17 at 15:30 Morphine Sulfate (Morphine Sulfate) 2 mg PRN Q3HRS PRN IV MODERATE TO SEVERE PAIN Last administered on 12/01/17at 07:53; Start 11/30/17 at 17:30 Potassium Chloride/Sodium Chloride 1,000 ml @ 100 mls/hr Q10H IV Last administered on 12/01/17at 04:05; Start 11/30/17 at 17:30 Potassium Phosphate (K-Phos Original) 500 mg QID PO ; Start 12/01/17 at 09:00 Hydralazine HCl (Apresoline) 25 mg TID PO ; Start 12/01/17 at 09:00 Active Scripts Active Levemir Flextouch (Insulin Detemir) 100 Unit/1 Ml Insuln.pen 20 Unit SQ QHS 30 Days Reported Metformin Hcl 1,000 Mg Tablet 1,000 Mg PO BIDWMEALS Ferralet 90 Dual-Iron Tablet (Iron, Carb & Gluc/Fa/B12/C/Dss) 1 Each Tablet 1 Tab PO DAILY Reglan (Metoclopramide Hcl) 10 Mg Tablet 1 Tab PO TID PRN Sucralfate 1 Gm Tablet 1 Tab PO QIDACHS Metoprolol Succinate ( Xl ) (Metoprolol Succinate) 100 Mg Tab.er.24h 1 Tab PO DAILY Simvastatin 20 Mg Tablet 1 Tab PO QHS [place] 5-325 Tablet (Acetaminophen/Hydrocodone Bitart) 1 Each Tablet 1 Tab PO BID PRN Levothyroxine Sodium 100 Mcg Tablet 1 Tab PO DAILY05 Spironolactone 50 Mg Tablet 1 Tab PO DAILY Docusate Sodium 100 Mg Capsule 1 Cap PO DAILY Trazodone Hcl 50 Mg Tablet 50 Mg PO QHS Omeprazole 40 Mg Capsule.dr 1 Cap PO DAILY06 Ibuprofen 800 Mg Tablet 800 Mg PO TID PRN Losartan-Hctz 100-12.5 Mg Tab (Losartan/Hydrochlorothiazide) 1 Each Tablet 1 Tab PO DAILY Amitriptyline Hcl 50 Mg Tablet 1 Tab PO QHS Ambien (Zolpidem Tartrate) 5 Mg Tablet 5 Mg PO HS PRN Potassium Chloride 20 Meq Tablet.er 20 Meq PO DAILY Protonix (Pantoprazole Sodium) 20 Mg Tablet.dr 40 Mg PO DAILYAC Amlodipine Besylate 10 Mg Tablet 10 Mg PO BID Vitals/I & O Vital Sign - Last 24 Hours 11/30/17 11/30/17 11/30/17 11/30/17 11:00 12:36 12:43 15:00 Temp 98.4 98.4 98.4 98.4 Pulse 108 108 107 Resp 16 16 B/P (MAP) 132/91 (105) 132/91 165/95 (118) Pulse Ox 97 97 96 O2 Delivery Room Air Room Air Room Air 11/30/17 11/30/17 11/30/17 11/30/17 15:17 16:19 16:45 19:49 Temp 99.7 99.7 Pulse 107 97 Resp 16 B/P (MAP) 165/95 143/93 (110) Pulse Ox 97 97 95 O2 Delivery Room Air Room Air Room Air 11/30/17 11/30/17 11/30/17 12/01/17 20:00 20:45 23:02 00:19 Temp 97.9 97.9 Pulse 97 112 112 Resp 16 B/P (MAP) 143/93 152/95 (114) 152/95 Pulse Ox 98 O2 Delivery Room Air Room Air 12/01/17 12/01/17 12/01/17 12/01/17 00:53 01:53 03:44 04:04 Temp 99.3 99.3 Pulse 100 100 Resp 16 B/P (MAP) 187/113 (137) 187/113 Pulse Ox 98 98 95 O2 Delivery Room Air Room Air Room Air 12/01/17 12/01/17 12/01/17 12/01/17 04:04 04:34 07:05 07:53 Temp 97.5 97.5 Pulse 111 Resp 18 18 17 B/P (MAP) 188/118 (141) Pulse Ox 95 96 96 O2 Delivery Room Air Room Air Room Air 12/01/17 12/01/17 12/01/17 12/01/17 07:54 07:55 08:11 09:35 Pulse 111 111 B/P (MAP) 188/118 188/118 Pulse Ox 96 O2 Delivery Room Air Room Air Intake and Output 11/30/17 11/30/17 12/01/17 14:59 22:59 06:59 Intake Total 240 ml 360 ml Balance 240 ml 360 ml Images MRI brain, 10/5: There is stable cavernous malformation of the medial right temporal lobe. Ventricular size is stable, within normal limits. There is no new intra-axial mass effect, midline shift, extra-axial fluid collection, or evidence of recent infarct. Minimal T2 and FLAIR hyperintense signal abnormality of the supratentorial white matter is unchanged. There is mild ethmoid air cell and left frontal sinus as well as inferior bilateral maxillary sinus mucosal thickening. There has been lens surgery bilaterally. There is minimal patchy fluid of the inferior left mastoid air cells, very mild thickening on the right. There is preservation of the major arterial flow voids at the skull base. Impression: 1. There is no new significant intracranial abnormality is no evidence of recent infarct. Minimal T2 and FLAIR hyperintense signal abnormality of the supratentorial parenchyma is stable, probably due to chronic microvascular ischemic disease in a patient this age. There is stable cavernous malformation of the medial right temporal lobe. [place] MILLER MD Dec 01, 2017 10:36
[2017-12-01 10:45] VITALS: BP 151/105
[2017-12-01] MEDS: POTASSIUM PHOSPHATE,MONOBASIC 500 MG TABLET. PO SCH ×4 (10:47→20:45)
[2017-12-01] MEDS: hydrALAZINE 25 MG TABLET PO SCH ×3 (10:47→21:06)
--- NOTE | 2017-12-01 12:29 | PDOC ---
Renal-Progress Notes Subjective Notes Notes NONE History of Present Illness Hx of present illness CONFUSED, BETTER Vitals Vitals Vital Signs Date Time Temp Pulse Resp B/P (MAP) Pulse Ox O2 Delivery O2 Flow Rate FiO2 12/01/17 10:47 110 151/105 12/01/17 10:45 98.1 16 95 98.1 12/01/17 09:35 Room Air Weight Weight [ ] I.O. Intake and Output Intake and Output 12/01/17 07:00 Intake Total 600 ml Balance 600 ml Intake Oral 600 ml # Voids 7 Labs Labs Laboratory Tests Test 11/30/17 17:10 11/30/17 20:22 12/01/17 04:32 12/01/17 04:50 Glucose (Fingerstick) 173 mg/dL (70-99) 212 mg/dL (70-99) Sodium Level 137 mmol/L (136-145) Potassium Level 3.4 mmol/L (3.5-5.1) Chloride Level 96 mmol/L (98-107) Carbon Dioxide Level 28 mmol/L (21-32) Anion Gap 13 (6-14) Blood Urea Nitrogen 11 mg/dL (7-20) Creatinine 0.9 mg/dL (0.6-1.0) Estimated GFR (Cockcroft-Gault) 74.9 Glucose Level 212 mg/dL (70-99) Calcium Level 9.8 mg/dL (8.5-10.1) Phosphorus Level 2.0 mg/dL (2.6-4.7) Albumin 3.9 g/dL (3.4-5.0) White Blood Count 12.5 x10^3/uL (4.0-11.0) Red Blood Count 4.85 x10^6/uL (3.50-5.40) Hemoglobin 13.2 g/dL (12.0-15.5) Hematocrit 39.2 % (36.0-47.0) Mean Corpuscular Volume 81 fL (79-100) Mean Corpuscular Hemoglobin 27 pg (25-35) Mean Corpuscular Hemoglobin Concent 34 g/dL (31-37) Red Cell Distribution Width 20.6 % (11.5-14.5) Platelet Count 237 x10^3/uL (140-400) Neutrophils (%) (Auto) 74 % (31-73) Lymphocytes (%) (Auto) 18 % (24-48) Monocytes (%) (Auto) 7 % (0-9) Eosinophils (%) (Auto) 0 % (0-3) Basophils (%) (Auto) 1 % (0-3) Neutrophils # (Auto) 9.2 x10^3uL (1.8-7.7) Lymphocytes # (Auto) 2.2 x10^3/uL (1.0-4.8) Monocytes # (Auto) 0.9 x10^3/uL (0.0-1.1) Eosinophils # (Auto) 0.0 x10^3/uL (0.0-0.7) Basophils # (Auto) 0.1 x10^3/uL (0.0-0.2) Test 12/01/17 07:19 Glucose (Fingerstick) 215 mg/dL (70-99) Micro Micro Microbiology 11/27/17 Urine Culture - Preliminary, Resulted 11/27/17 Urine Culture Result 1 (CABRERA) - Preliminary, Resulted Review of Systems Constitutional: yes: other (CONFUSED) Physical Exam General Appearance: no apparent distress Skin: warm Respiratory: bilateral CTA Heart: S1S2 Abdomen: bowel sounds present, no masses Genitourinary: bladder flat Extremities: pulses present Assessment Assessment IMP PAM-RESOLVED PROB MILD CKD DESPITE NL CR HYPERCALCEMIA-RESOLVED MET ENCEPHALOPATHY DEMENTIA POSSIBLE CVA LOW K AND PO4 DM II LEUCOCYTOSIS PLAN SUPPORTIVE CARE CONT WITH IVF'S CONT WITH K AND PO4 REPLACEMENT ANTIBIOTICS CLAYTON LAMBERT MD Dec 01, 2017 12:29
[2017-12-01] MEDS ORDERED: SODIUM PHOSPHATE 20 MMOL in IV NORMAL SALINE 250ML 250 ML IV ONE (13:00)
[2017-12-01 14:42] VITALS: BP 144/96
[2017-12-01] MEDS: METOCLOPRAMIDE HCL 10 MG/2 ML VIAL. IV SCH ×2 (16:17→20:45)
[2017-12-01] MEDS: cefTRIAXone IV Push 1 GM VIAL. IVP SCH (16:20)
--- NOTE | 2017-12-01 18:28 | PDOC ---
PROGRESS NOTES Subjective Subjective She admits lower abdominal pain. Objective Objective Vital Signs Date Time Temp Pulse Resp B/P (MAP) Pulse Ox O2 Delivery O2 Flow Rate FiO2 12/01/17 17:24 96 Room Air 12/01/17 16:18 111 144/96 12/01/17 14:42 98.5 18 98.5 Intake and Output 12/01/17 07:00 Intake Total 600 ml Balance 600 ml Intake Oral 600 ml # Voids 7 Physical Exam Physical Exam She is alert and supine in bed and continues to be independent with her mobility. Assessment Assessment Problems Medical Problems: (1) Right sided weakness Status: Acute Plan Plan of Care Agree with plans for SNF when medically stable. Comment Review of Relevant I have reviewed the following items mert (where applicable) has been applied. Labs Laboratory Tests Test 11/29/17 19:20 11/29/17 19:47 11/30/17 07:21 11/30/17 11:45 Estimated GFR (Non- 62 (>59) EGFR 72 (>59) PTH (Intact) Specimen Description Comment (.) Parathyroid Hormone (Intact) 33 pg/mL (15-65) Calcium (PTH Intact) 11.1 mg/dL (8.7-10.3) Creatinine (PTH Intact) 0.93 mg/dL (0.57-1.00) Phosphorus (PTH Intact) 2.7 mg/dL (2.5-4.5) Glucose (Fingerstick) 188 mg/dL (70-99) 227 mg/dL (70-99) White Blood Count 17.4 x10^3/uL (4.0-11.0) Red Blood Count 4.86 x10^6/uL (3.50-5.40) Hemoglobin 13.4 g/dL (12.0-15.5) Hematocrit 38.8 % (36.0-47.0) Mean Corpuscular Volume 80 fL (79-100) Mean Corpuscular Hemoglobin 28 pg (25-35) Mean Corpuscular Hemoglobin Concent 35 g/dL (31-37) Red Cell Distribution Width 21.4 % (11.5-14.5) Platelet Count 256 x10^3/uL (140-400) Neutrophils (%) (Auto) 71 % (31-73) Lymphocytes (%) (Auto) 19 % (24-48) Monocytes (%) (Auto) 9 % (0-9) Eosinophils (%) (Auto) 0 % (0-3) Basophils (%) (Auto) 1 % (0-3) Neutrophils # (Auto) 12.3 x10^3uL (1.8-7.7) Lymphocytes # (Auto) 3.3 x10^3/uL (1.0-4.8) Monocytes # (Auto) 1.6 x10^3/uL (0.0-1.1) Eosinophils # (Auto) 0.0 x10^3/uL (0.0-0.7) Basophils # (Auto) 0.1 x10^3/uL (0.0-0.2) Sodium Level 137 mmol/L (136-145) Potassium Level 3.1 mmol/L (3.5-5.1) Chloride Level 96 mmol/L (98-107) Carbon Dioxide Level 25 mmol/L (21-32) Anion Gap 16 (6-14) Blood Urea Nitrogen 15 mg/dL (7-20) Creatinine 1.2 mg/dL (0.6-1.0) Estimated GFR (Cockcroft-Gault) 53.7 Glucose Level 215 mg/dL (70-99) Calcium Level 10.0 mg/dL (8.5-10.1) Phosphorus Level 2.5 mg/dL (2.6-4.7) Albumin 4.0 g/dL (3.4-5.0) Test 11/30/17 11:59 11/30/17 17:10 11/30/17 20:22 12/01/17 04:32 Glucose (Fingerstick) 210 mg/dL (70-99) 173 mg/dL (70-99) 212 mg/dL (70-99) Sodium Level 137 mmol/L (136-145) Potassium Level 3.4 mmol/L (3.5-5.1) Chloride Level 96 mmol/L (98-107) Carbon Dioxide Level 28 mmol/L (21-32) Anion Gap 13 (6-14) Blood Urea Nitrogen 11 mg/dL (7-20) Creatinine 0.9 mg/dL (0.6-1.0) Estimated GFR (Cockcroft-Gault) 74.9 Glucose Level 212 mg/dL (70-99) Calcium Level 9.8 mg/dL (8.5-10.1) Phosphorus Level 2.0 mg/dL (2.6-4.7) Albumin 3.9 g/dL (3.4-5.0) Test 12/01/17 04:50 12/01/17 07:19 12/01/17 11:46 12/01/17 16:44 White Blood Count 12.5 x10^3/uL (4.0-11.0) Red Blood Count 4.85 x10^6/uL (3.50-5.40) Hemoglobin 13.2 g/dL (12.0-15.5) Hematocrit 39.2 % (36.0-47.0) Mean Corpuscular Volume 81 fL (79-100) Mean Corpuscular Hemoglobin 27 pg (25-35) Mean Corpuscular Hemoglobin Concent 34 g/dL (31-37) Red Cell Distribution Width 20.6 % (11.5-14.5) Platelet Count 237 x10^3/uL (140-400) Neutrophils (%) (Auto) 74 % (31-73) Lymphocytes (%) (Auto) 18 % (24-48) Monocytes (%) (Auto) 7 % (0-9) Eosinophils (%) (Auto) 0 % (0-3) Basophils (%) (Auto) 1 % (0-3) Neutrophils # (Auto) 9.2 x10^3uL (1.8-7.7) Lymphocytes # (Auto) 2.2 x10^3/uL (1.0-4.8) Monocytes # (Auto) 0.9 x10^3/uL (0.0-1.1) Eosinophils # (Auto) 0.0 x10^3/uL (0.0-0.7) Basophils # (Auto) 0.1 x10^3/uL (0.0-0.2) Glucose (Fingerstick) 215 mg/dL (70-99) 208 mg/dL (70-99) 121 mg/dL (70-99) Laboratory Tests Test 11/30/17 20:22 12/01/17 04:32 12/01/17 04:50 12/01/17 07:19 Glucose (Fingerstick) 212 mg/dL (70-99) 215 mg/dL (70-99) Sodium Level 137 mmol/L (136-145) Potassium Level 3.4 mmol/L (3.5-5.1) Chloride Level 96 mmol/L (98-107) Carbon Dioxide Level 28 mmol/L (21-32) Anion Gap 13 (6-14) Blood Urea Nitrogen 11 mg/dL (7-20) Creatinine 0.9 mg/dL (0.6-1.0) Estimated GFR (Cockcroft-Gault) 74.9 Glucose Level 212 mg/dL (70-99) Calcium Level 9.8 mg/dL (8.5-10.1) Phosphorus Level 2.0 mg/dL (2.6-4.7) Albumin 3.9 g/dL (3.4-5.0) White Blood Count 12.5 x10^3/uL (4.0-11.0) Red Blood Count 4.85 x10^6/uL (3.50-5.40) Hemoglobin 13.2 g/dL (12.0-15.5) Hematocrit 39.2 % (36.0-47.0) Mean Corpuscular Volume 81 fL (79-100) Mean Corpuscular Hemoglobin 27 pg (25-35) Mean Corpuscular Hemoglobin Concent 34 g/dL (31-37) Red Cell Distribution Width 20.6 % (11.5-14.5) Platelet Count 237 x10^3/uL (140-400) Neutrophils (%) (Auto) 74 % (31-73) Lymphocytes (%) (Auto) 18 % (24-48) Monocytes (%) (Auto) 7 % (0-9) Eosinophils (%) (Auto) 0 % (0-3) Basophils (%) (Auto) 1 % (0-3) Neutrophils # (Auto) 9.2 x10^3uL (1.8-7.7) Lymphocytes # (Auto) 2.2 x10^3/uL (1.0-4.8) Monocytes # (Auto) 0.9 x10^3/uL (0.0-1.1) Eosinophils # (Auto) 0.0 x10^3/uL (0.0-0.7) Basophils # (Auto) 0.1 x10^3/uL (0.0-0.2) Test 12/01/17 11:46 12/01/17 16:44 Glucose (Fingerstick) 208 mg/dL (70-99) 121 mg/dL (70-99) Microbiology 11/27/17 Urine Culture - Preliminary, Resulted 11/27/17 Urine Culture Result 1 (CABRERA) - Preliminary, Resulted Medications Current Medications Influenza Virus Vaccine (Afluria Trivalent [id number] Syringe) 0.5 ml ONCE ONCE VAX IM Last administered on 11/27/17at 17:55; Start 11/27/17 at 17:00; Stop 11/27/17 at 17:01; Status DC Amitriptyline HCl (Elavil) 50 mg QHS PO Last administered on 11/30/17at 20:44; Start 11/27/17 at 21:00 Amlodipine Besylate (Norvasc) 10 mg BID PO ; Start 11/27/17 at 21:00; Stop 11/27 at 21:00; Status DC Docusate Sodium (Colace) 100 mg DAILY PO Last administered on 12/01/17 07:57; Start 11/28/17 at 09:00 Acetaminophen/ Hydrocodone Bitart (Lortab 5/325) 1 tab PRN BID PRN PO MODERATE PAIN Last administered on 12/01/17 13:35; Start 11/27/17 at 15:30 Levothyroxine Sodium (Synthroid) 100 mcg DAILY05 PO Last administered on 04:03; Start 11/28/17 at 05:00 Metoclopramide HCl (Reglan) 10 mg PRN TID PRN PO NAUSEA Last administered on 04:07; Start 11/27/17 at 15:30; Stop 12/01/17 at 13:30; Status DC Metoprolol Succinate (Toprol Xl) 100 mg DAILY PO Last administered on 08:43; Start 11/28/17 at 09:00; Stop 12/01/17 at 10:07; Status DC Trazodone HCl (Desyrel) 50 mg DAILY PO Last administered on 11/28/17 08:44; Start 11/28/17 at 09:00; Stop 11/29/17 at 08:54; Status DC Zolpidem Tartrate (Ambien) 5 mg PRN QHS PRN PO INSOMNIA Last administered on 20:15; Start 11/27/17 at 15:30 Insulin Glargine (Lantus) 20 units QHS SQ Last administered on 11/30/17 20:53 ; Start 11/27/17 at 21:00 Ferrous Sulfate (Feosol) 325 mg DAILYWBKFT PO Last administered on 11/28/17 08 :42; Start 11/28/17 at 08:00 Losartan Potassium (Cozaar) 100 mg DAILY PO Last administered on 11/28/17 08: 42; Start 11/28/17 at 09:00; Stop 11/30/17 at 07:51; Status DC Metformin HCl (Glucophage) 1,000 mg BIDWMEALS PO ; Start 11/27/17 at 17:00; Stop 11/27/17 at 17:00; Status DC Non-Formulary Medication (Omeprazole ) 1 cap DAILY06 PO ; Start 11/28/17 at 06: 00; Stop 11/28/17 at 06:00; Status DC Pantoprazole Sodium (Protonix) 40 mg DAILYAC PO Last administered on 11/28/17 08:42; Start 11/28/17 at 07:30 Potassium Chloride (Klor-Con) 20 meq DAILYWBKFT PO Last administered on 08:44; Start 11/28/17 at 08:00 Simvastatin (Zocor) 20 mg HS PO Last administered on 11/30/17 20:44; Start at 21:00 Spironolactone (Aldactone) 50 mg DAILY PO Last administered on 12/01/17 07:56 ; Start 11/28/17 at 09:00 Sucralfate (Carafate) 1 gm QIDACHS PO Last administered on 12/01/17 07:56; Start 11/27/17 at 16:30 Insulin Human Lispro (HumaLOG) 0-9 UNITS TIDWMEALS SQ Last administered on 12/01 12:49; Start 11/27/17 at 17:00 Dextrose (Dextrose 50%-Water Syringe) 12.5 gm PRN Q15MIN PRN IV SEE COMMENTS; Start 11/27/17 at 15:30 Hydrochlorothiazide (Microzide) 12.5 mg DAILY PO Last administered on 10/5/ 18at 08:43; Start 11/28/17 at 09:00; Stop 11/30/17 at 07:51; Status DC Amlodipine Besylate (Norvasc) 10 mg DAILY PO Last administered on 12/01/17at 07: 55; Start 11/28/17 at 09:00 Aspirin (Evelina Aspirin) 325 mg 1X ONCE PO Last administered on 11/27/17at 17:52 ; Start 11/27/17 at 16:15; Stop 11/27/17 at 16:16; Status DC Metformin HCl (Glucophage) 1,000 mg BIDWMEALS PO Last administered on 16:18; Start 11/27/17 at 17:00; Stop 11/29/17 at 14:55; Status DC Methylprednisolone Acetate (DEPO-Medrol 40MG VIAL) 40 mg 1X ONCE IM Last administered on 11/28/17at 09:15; Start 11/28/17 at 09:15; Stop 11/28/17 at 09:16 ; Status DC Bupivacaine HCl (Sensorcaine-Mpf 0.25%) 10 ml 1X ONCE IJ Last administered on 11/28/17at 09:15; Start 11/28/17 at 09:15; Stop 11/28/17 at 09:16; Status DC Metoprolol Tartrate (Lopressor Vial) 2.5 mg PRN Q3HRS PRN IVP HYPERTENSION, SEE COMMENTS; Start 11/28/17 at 10:45 Morphine Sulfate (Morphine Sulfate) 2 mg 1X ONCE IM ; Start 11/28/17 at 16:00; Stop 11/28/17 at 16:20; Status DC Morphine Sulfate (Morphine Sulfate) 2 mg 1X ONCE IV Last administered on at 16:22; Start 11/28/17 at 16:30; Stop 11/28/17 at 16:31; Status DC Vitamin D (Vitamin D3) 5,000 unit DAILY PO ; Start 11/29/17 at 09:00 Trazodone HCl (Desyrel) 50 mg QHS PO Last administered on 11/30/17at 20:44; Start 11/29/17 at 21:00 Ondansetron HCl (Zofran) 4 mg PRN Q6HRS PRN IV NAUSEA/VOMITING, 1st CHOICE Last administered on 12/01/17at 00:53; Start 11/29/17 at 10:15 Lactulose (Lactulose) 20 gm PRN DAILY PRN PO CONSTIPATION Last administered on 11/29/17 20:16; Start 11/29/17 at 12:15 Metoclopramide HCl (Reglan Vial) 5 mg PRN Q6HRS PRN IV NAUSEA/VOMITING, 2nd CHOICE Last administered on 12/01/17 04:05; Start 11/29/17 at 12:15; Stop 12/01 at 13:30; Status DC Metoprolol Tartrate (Lopressor Vial) 5 mg Q4HRS IVP Last administered on 16:18; Start 11/29/17 at 16:30 Morphine Sulfate (Morphine Sulfate) 2 mg PRN Q4HRS PRN IV MODERATE TO SEVERE PAIN Last administered on 11/30/17 16:45; Start 11/30/17 at 07:45; Stop at 17:18; Status DC Sodium Chloride 1,000 ml @ 100 mls/hr Q10H IV Last administered on 11/30/17 08:21; Start 11/30/17 at 08:00; Stop 11/30/17 at 17:18; Status DC Ceftriaxone Sodium (Rocephin) 1 gm Q24H IVP Last administered on 12/01/17 16: 20; Start 11/30/17 at 15:30 Morphine Sulfate (Morphine Sulfate) 2 mg PRN Q3HRS PRN IV MODERATE TO SEVERE PAIN Last administered on 12/01/17 16:34; Start 11/30/17 at 17:30 Potassium Chloride/Sodium Chloride 1,000 ml @ 100 mls/hr Q10H IV Last administered on 12/01/17 04:05; Start 11/30/17 at 17:30 Potassium Phosphate (K-Phos Original) 500 mg QID PO Last administered on 10:47; Start 12/01/17 at 09:00 Hydralazine HCl (Apresoline) 25 mg TID PO Last administered on 12/01/17 10:47 ; Start 12/01/17 at 09:00 Sodium Phosphate 20 mmol/Sodium Chloride 256.6667 ml @ 64.167 m... 1X ONCE IV Last administered on 12/01/17 13:36; Start 12/01/17 at 13:00; Stop 12/01/17 at 16:59; Status DC Metoclopramide HCl (Reglan Vial) 10 mg QIDACHS IV Last administered on at 16:17; Start 12/01/17 at 16:30 Lactobacillus Rhamnosus (Culturelle) 1 cap BID PO ; Start 12/01/17 at 21:00 Active Scripts Active Levemir Flextouch (Insulin Detemir) 100 Unit/1 Ml Insuln.pen 20 Unit SQ QHS 30 Days Reported Metformin Hcl 1,000 Mg Tablet 1,000 Mg PO BIDWMEALS Ferralet 90 Dual-Iron Tablet (Iron, Carb & Gluc/Fa/B12/C/Dss) 1 Each Tablet 1 Tab PO DAILY Reglan (Metoclopramide Hcl) 10 Mg Tablet 1 Tab PO TID PRN Sucralfate 1 Gm Tablet 1 Tab PO QIDACHS Metoprolol Succinate ( Xl ) (Metoprolol Succinate) 100 Mg Tab.er.24h 1 Tab PO DAILY Simvastatin 20 Mg Tablet 1 Tab PO QHS [place] 5-325 Tablet (Acetaminophen/Hydrocodone Bitart) 1 Each Tablet 1 Tab PO BID PRN Levothyroxine Sodium 100 Mcg Tablet 1 Tab PO DAILY05 Spironolactone 50 Mg Tablet 1 Tab PO DAILY Docusate Sodium 100 Mg Capsule 1 Cap PO DAILY Trazodone Hcl 50 Mg Tablet 50 Mg PO QHS Omeprazole 40 Mg Capsule.dr 1 Cap PO DAILY06 Ibuprofen 800 Mg Tablet 800 Mg PO TID PRN Losartan-Hctz 100-12.5 Mg Tab (Losartan/Hydrochlorothiazide) 1 Each Tablet 1 Tab PO DAILY Amitriptyline Hcl 50 Mg Tablet 1 Tab PO QHS Ambien (Zolpidem Tartrate) 5 Mg Tablet 5 Mg PO HS PRN Potassium Chloride 20 Meq Tablet.er 20 Meq PO DAILY Protonix (Pantoprazole Sodium) 20 Mg Tablet.dr 40 Mg PO DAILYAC Amlodipine Besylate 10 Mg Tablet 10 Mg PO BID Vitals/I & O Vital Sign - Last 24 Hours 11/30/17 11/30/17 11/30/17 11/30/17 19:49 20:00 20:45 23:02 Temp 99.7 97.9 99.7 97.9 Pulse 97 97 112 Resp 16 16 B/P (MAP) 143/93 (110) 143/93 152/95 (114) Pulse Ox 95 98 O2 Delivery Room Air Room Air Room Air 12/01/17 12/01/17 12/01/17 12/01/17 00:19 00:53 03:44 04:04 Temp 99.3 99.3 Pulse 112 100 100 Resp 16 B/P (MAP) 152/95 187/113 (137) 187/113 Pulse Ox 98 95 O2 Delivery Room Air Room Air 12/01/17 12/01/17 12/01/17 12/01/17 04:04 04:34 07:05 07:53 Temp 97.5 97.5 Pulse 111 Resp 18 18 17 B/P (MAP) 188/118 (141) Pulse Ox 95 96 96 O2 Delivery Room Air Room Air Room Air 12/01/17 12/01/17 12/01/17 12/01/17 07:54 07:55 08:11 10:45 Temp 98.1 98.1 Pulse 111 111 110 Resp 16 B/P (MAP) 188/118 188/118 151/105 (120) Pulse Ox 95 O2 Delivery Room Air 12/01/17 12/01/17 12/01/17 12/01/17 10:47 12:46 13:10 13:33 Pulse 110 110 110 B/P (MAP) 151/105 151/105 151/105 O2 Delivery Room Air 12/01/17 12/01/17 12/01/17 12/01/17 13:35 14:42 16:06 16:18 Temp 98.5 98.5 Pulse 111 111 Resp 18 B/P (MAP) 144/96 (112) 144/96 Pulse Ox 95 96 96 O2 Delivery Room Air Room Air Room Air 12/01/17 12/01/17 16:34 17:24 Pulse Ox 96 96 O2 Delivery Room Air Room Air Intake and Output 11/30/17 11/30/17 12/01/17 15:00 23:00 07:00 Intake Total 240 ml 360 ml Balance 240 ml 360 ml YOLIS MORALES MD Dec 01, 2017 18:28
[2017-12-01 19:45] VITALS: BP 145/93
[2017-12-01] MEDS: LACTOBACILLUS RHAMNOSUS GG 1 CAPSULE. PO SCH (20:45)
[2017-12-01] MEDS: AMITRIPTYLINE HCL 50 MG TABLET PO SCH (20:45)
[2017-12-01] MEDS: SIMVASTATIN 20 MG TABLET PO SCH (20:45)
[2017-12-01] MEDS: traZODone 50 MG TABLET. PO SCH (21:06)
[2017-12-01] MEDS: INSULIN GLARGINE 300 UNITS/3 ML INSULN.PEN. SQ SCH (21:18)
[2017-12-01 23:00] VITALS: BP 144/88
[2017-12-02] MEDS: MORPHINE SULFATE 2 MG/ML VIAL. IV PRN ×4 (00:29→15:44)
[2017-12-02 03:16] VITALS: BP 109/78
[2017-12-02] MEDS: METOPROLOL TARTRATE 5 MG/5 ML VIAL. IVP SCH ×5 (04:00→16:51)
[2017-12-02 04:19] LABS: BASO # 0.1 x10^3/uL (0.0-0.2); BASO % 1 % (0-3); EOS # 0.1 x10^3/uL (0.0-0.7); EOS % 1 % (0-3); HEMATOCRIT 37.7 % (36.0-47.0); HEMOGLOBIN 12.8 g/dL (12.0-15.5); LYMPH # 3.9 x10^3/uL (1.0-4.8); LYMPH % 36 % (24-48); MEAN CORPUSCULAR HEMOGLOBIN 28 pg (25-35); MEAN CORPUSCULAR HGB CONC 34 g/dL (31-37); MEAN CORPUSCULAR VOLUME 81 fL (79-100); MONO # 0.9 x10^3/uL (0.0-1.1); MONO % 9 % (0-9); NEUT # 5.8 x10^3uL (1.8-7.7); NEUT % 54 % (31-73); PLATELET COUNT 209 x10^3/uL (140-400); RED BLOOD COUNT 4.64 x10^6/uL (3.50-5.40); RED CELL DISTRIBUTION WIDTH 20.4 % (11.5-14.5); WHITE BLOOD COUNT 10.8 x10^3/uL (4.0-11.0)
[2017-12-02 04:35] LABS: ALBUMIN 3.2 g/dL (3.4-5.0); CALCIUM 8.6 mg/dL (8.5-10.1); GFR 66.3; MAGNESIUM 1.2 mg/dL (1.8-2.4); PHOSPHORUS 2.3 mg/dL (2.6-4.7)
[2017-12-02 04:39] LABS: POTASSIUM 2.7 mmol/L (3.5-5.1)
[2017-12-02] MEDS ORDERED: POTASSIUM CHLORIDE 20 MEQ TABLET.ER. PO ONE ×2 (05:00→12:30)
[2017-12-02] MEDS: LEVOTHYROXINE 100 MCG TABLET PO SCH (05:46)
[2017-12-02] MEDS: METOCLOPRAMIDE HCL 10 MG/2 ML VIAL. IV SCH ×3 (07:37→16:51)
[2017-12-02] MEDS: SUCRALFATE 1 GM TABLET. PO SCH ×3 (07:38→16:50)
[2017-12-02] MEDS: PANTOPRAZOLE 40 MG TABLET.DR. PO SCH (07:38)
[2017-12-02 07:47] VITALS: BP 160/100
[2017-12-02] MEDS: INSULIN LISPRO 300 UNITS/3 ML INSULN.PEN. SQ SCH ×3 (07:58→17:00)
[2017-12-02] MEDS: LACTOBACILLUS RHAMNOSUS GG 1 CAPSULE. PO SCH (08:51)
[2017-12-02] MEDS: POTASSIUM PHOSPHATE,MONOBASIC 500 MG TABLET. PO SCH ×3 (08:51→16:50)
[2017-12-02] MEDS: SPIRONOLACTONE 25 MG TABLET PO SCH (08:51)
--- NOTE | 2017-12-02 08:51 | PDOC ---
PROGRESS NOTES Subjective Subjective No new complaints. Objective Objective Vital Signs Date Time Temp Pulse Resp B/P (MAP) Pulse Ox O2 Delivery O2 Flow Rate FiO2 12/02/17 07:51 Room Air 12/02/17 07:47 98.1 96 20 160/100 (120) 96 98.1 Intake and Output 12/02/17 07:00 Intake Total 600 ml Output Total 30 ml Balance 570 ml Intake Oral 600 ml Emesis 30 ml # Voids 6 Physical Exam Physical Exam She is alert and supine in bed but continues to be independent with her mobility. She continues with preexisting cognitive deficits and agrees to go to SNF. Assessment Assessment Problems Medical Problems: (1) Right sided weakness Status: Acute Plan Plan of Care I think she will be better to go to an assisted living facility if financially feasible. Comment Review of Relevant I have reviewed the following items mert (where applicable) has been applied. Labs Laboratory Tests Test 11/30/17 11:45 11/30/17 11:59 11/30/17 17:10 11/30/17 20:22 White Blood Count 17.4 x10^3/uL (4.0-11.0) Red Blood Count 4.86 x10^6/uL (3.50-5.40) Hemoglobin 13.4 g/dL (12.0-15.5) Hematocrit 38.8 % (36.0-47.0) Mean Corpuscular Volume 80 fL (79-100) Mean Corpuscular Hemoglobin 28 pg (25-35) Mean Corpuscular Hemoglobin Concent 35 g/dL (31-37) Red Cell Distribution Width 21.4 % (11.5-14.5) Platelet Count 256 x10^3/uL (140-400) Neutrophils (%) (Auto) 71 % (31-73) Lymphocytes (%) (Auto) 19 % (24-48) Monocytes (%) (Auto) 9 % (0-9) Eosinophils (%) (Auto) 0 % (0-3) Basophils (%) (Auto) 1 % (0-3) Neutrophils # (Auto) 12.3 x10^3uL (1.8-7.7) Lymphocytes # (Auto) 3.3 x10^3/uL (1.0-4.8) Monocytes # (Auto) 1.6 x10^3/uL (0.0-1.1) Eosinophils # (Auto) 0.0 x10^3/uL (0.0-0.7) Basophils # (Auto) 0.1 x10^3/uL (0.0-0.2) Sodium Level 137 mmol/L (136-145) Potassium Level 3.1 mmol/L (3.5-5.1) Chloride Level 96 mmol/L (98-107) Carbon Dioxide Level 25 mmol/L (21-32) Anion Gap 16 (6-14) Blood Urea Nitrogen 15 mg/dL (7-20) Creatinine 1.2 mg/dL (0.6-1.0) Estimated GFR (Cockcroft-Gault) 53.7 Glucose Level 215 mg/dL (70-99) Calcium Level 10.0 mg/dL (8.5-10.1) Phosphorus Level 2.5 mg/dL (2.6-4.7) Albumin 4.0 g/dL (3.4-5.0) Glucose (Fingerstick) 210 mg/dL (70-99) 173 mg/dL (70-99) 212 mg/dL (70-99) Test 12/01/17 04:32 12/01/17 04:50 12/01/17 07:19 12/01/17 11:46 Sodium Level 137 mmol/L (136-145) Potassium Level 3.4 mmol/L (3.5-5.1) Chloride Level 96 mmol/L (98-107) Carbon Dioxide Level 28 mmol/L (21-32) Anion Gap 13 (6-14) Blood Urea Nitrogen 11 mg/dL (7-20) Creatinine 0.9 mg/dL (0.6-1.0) Estimated GFR (Cockcroft-Gault) 74.9 Glucose Level 212 mg/dL (70-99) Calcium Level 9.8 mg/dL (8.5-10.1) Phosphorus Level 2.0 mg/dL (2.6-4.7) Albumin 3.9 g/dL (3.4-5.0) White Blood Count 12.5 x10^3/uL (4.0-11.0) Red Blood Count 4.85 x10^6/uL (3.50-5.40) Hemoglobin 13.2 g/dL (12.0-15.5) Hematocrit 39.2 % (36.0-47.0) Mean Corpuscular Volume 81 fL (79-100) Mean Corpuscular Hemoglobin 27 pg (25-35) Mean Corpuscular Hemoglobin Concent 34 g/dL (31-37) Red Cell Distribution Width 20.6 % (11.5-14.5) Platelet Count 237 x10^3/uL (140-400) Neutrophils (%) (Auto) 74 % (31-73) Lymphocytes (%) (Auto) 18 % (24-48) Monocytes (%) (Auto) 7 % (0-9) Eosinophils (%) (Auto) 0 % (0-3) Basophils (%) (Auto) 1 % (0-3) Neutrophils # (Auto) 9.2 x10^3uL (1.8-7.7) Lymphocytes # (Auto) 2.2 x10^3/uL (1.0-4.8) Monocytes # (Auto) 0.9 x10^3/uL (0.0-1.1) Eosinophils # (Auto) 0.0 x10^3/uL (0.0-0.7) Basophils # (Auto) 0.1 x10^3/uL (0.0-0.2) Glucose (Fingerstick) 215 mg/dL (70-99) 208 mg/dL (70-99) Test 12/01/17 16:44 12/01/17 21:05 12/02/17 03:10 12/02/17 07:33 Glucose (Fingerstick) 121 mg/dL (70-99) 159 mg/dL (70-99) 156 mg/dL (70-99) White Blood Count 10.8 x10^3/uL (4.0-11.0) Red Blood Count 4.64 x10^6/uL (3.50-5.40) Hemoglobin 12.8 g/dL (12.0-15.5) Hematocrit 37.7 % (36.0-47.0) Mean Corpuscular Volume 81 fL (79-100) Mean Corpuscular Hemoglobin 28 pg (25-35) Mean Corpuscular Hemoglobin Concent 34 g/dL (31-37) Red Cell Distribution Width 20.4 % (11.5-14.5) Platelet Count 209 x10^3/uL (140-400) Neutrophils (%) (Auto) 54 % (31-73) Lymphocytes (%) (Auto) 36 % (24-48) Monocytes (%) (Auto) 9 % (0-9) Eosinophils (%) (Auto) 1 % (0-3) Basophils (%) (Auto) 1 % (0-3) Neutrophils # (Auto) 5.8 x10^3uL (1.8-7.7) Lymphocytes # (Auto) 3.9 x10^3/uL (1.0-4.8) Monocytes # (Auto) 0.9 x10^3/uL (0.0-1.1) Eosinophils # (Auto) 0.1 x10^3/uL (0.0-0.7) Basophils # (Auto) 0.1 x10^3/uL (0.0-0.2) Sodium Level 137 mmol/L (136-145) Potassium Level 2.7 mmol/L (3.5-5.1) Chloride Level 98 mmol/L (98-107) Carbon Dioxide Level 27 mmol/L (21-32) Anion Gap 12 (6-14) Blood Urea Nitrogen 7 mg/dL (7-20) Creatinine 1.0 mg/dL (0.6-1.0) Estimated GFR (Cockcroft-Gault) 66.3 Glucose Level 151 mg/dL (70-99) Calcium Level 8.6 mg/dL (8.5-10.1) Phosphorus Level 2.3 mg/dL (2.6-4.7) Magnesium Level 1.2 mg/dL (1.8-2.4) Albumin 3.2 g/dL (3.4-5.0) Laboratory Tests Test 12/01/17 11:46 12/01/17 16:44 12/01/17 21:05 12/02/17 03:10 Glucose (Fingerstick) 208 mg/dL (70-99) 121 mg/dL (70-99) 159 mg/dL (70-99) White Blood Count 10.8 x10^3/uL (4.0-11.0) Red Blood Count 4.64 x10^6/uL (3.50-5.40) Hemoglobin 12.8 g/dL (12.0-15.5) Hematocrit 37.7 % (36.0-47.0) Mean Corpuscular Volume 81 fL (79-100) Mean Corpuscular Hemoglobin 28 pg (25-35) Mean Corpuscular Hemoglobin Concent 34 g/dL (31-37) Red Cell Distribution Width 20.4 % (11.5-14.5) Platelet Count 209 x10^3/uL (140-400) Neutrophils (%) (Auto) 54 % (31-73) Lymphocytes (%) (Auto) 36 % (24-48) Monocytes (%) (Auto) 9 % (0-9) Eosinophils (%) (Auto) 1 % (0-3) Basophils (%) (Auto) 1 % (0-3) Neutrophils # (Auto) 5.8 x10^3uL (1.8-7.7) Lymphocytes # (Auto) 3.9 x10^3/uL (1.0-4.8) Monocytes # (Auto) 0.9 x10^3/uL (0.0-1.1) Eosinophils # (Auto) 0.1 x10^3/uL (0.0-0.7) Basophils # (Auto) 0.1 x10^3/uL (0.0-0.2) Sodium Level 137 mmol/L (136-145) Potassium Level 2.7 mmol/L (3.5-5.1) Chloride Level 98 mmol/L (98-107) Carbon Dioxide Level 27 mmol/L (21-32) Anion Gap 12 (6-14) Blood Urea Nitrogen 7 mg/dL (7-20) Creatinine 1.0 mg/dL (0.6-1.0) Estimated GFR (Cockcroft-Gault) 66.3 Glucose Level 151 mg/dL (70-99) Calcium Level 8.6 mg/dL (8.5-10.1) Phosphorus Level 2.3 mg/dL (2.6-4.7) Magnesium Level 1.2 mg/dL (1.8-2.4) Albumin 3.2 g/dL (3.4-5.0) Test 12/02/17 07:33 Glucose (Fingerstick) 156 mg/dL (70-99) Microbiology 11/27/17 Urine Culture - Final, Complete 11/27/17 Urine Culture Result 1 (CABRERA) - Final, Complete 11/27/17 Antimicrobic Susceptibility - Final, Complete Medications Current Medications Influenza Virus Vaccine (Afluria Trivalent [id number] Syringe) 0.5 ml ONCE ONCE VAX IM Last administered on 11/27/17at 17:55; Start 11/27/17 at 17:00; Stop 11/27/17 at 17:01; Status DC Amitriptyline HCl (Elavil) 50 mg QHS PO Last administered on 12/01/17at 20:45; Start 11/27/17 at 21:00 Amlodipine Besylate (Norvasc) 10 mg BID PO ; Start 11/27/17 at 21:00; Stop 11/27 at 21:00; Status DC Docusate Sodium (Colace) 100 mg DAILY PO Last administered on 12/01/17 07:57; Start 11/28/17 at 09:00 Acetaminophen/ Hydrocodone Bitart (Lortab 5/325) 1 tab PRN BID PRN PO MODERATE PAIN Last administered on 12/01/17 20:45; Start 11/27/17 at 15:30 Levothyroxine Sodium (Synthroid) 100 mcg DAILY05 PO Last administered on 05:46; Start 11/28/17 at 05:00 Metoclopramide HCl (Reglan) 10 mg PRN TID PRN PO NAUSEA Last administered on 04:07; Start 11/27/17 at 15:30; Stop 12/01/17 at 13:30; Status DC Metoprolol Succinate (Toprol Xl) 100 mg DAILY PO Last administered on 08:43; Start 11/28/17 at 09:00; Stop 12/01/17 at 10:07; Status DC Trazodone HCl (Desyrel) 50 mg DAILY PO Last administered on 11/28/17 08:44; Start 11/28/17 at 09:00; Stop 11/29/17 at 08:54; Status DC Zolpidem Tartrate (Ambien) 5 mg PRN QHS PRN PO INSOMNIA Last administered on at 20:15; Start 11/27/17 at 15:30 Insulin Glargine (Lantus) 20 units QHS SQ Last administered on 12/01/17at 21:18 ; Start 11/27/17 at 21:00 Ferrous Sulfate (Feosol) 325 mg DAILYWBKFT PO Last administered on 11/28/17 08 :42; Start 11/28/17 at 08:00 Losartan Potassium (Cozaar) 100 mg DAILY PO Last administered on 11/28/17at 08: 42; Start 11/28/17 at 09:00; Stop 11/30/17 at 07:51; Status DC Metformin HCl (Glucophage) 1,000 mg BIDWMEALS PO ; Start 11/27/17 at 17:00; Stop 11/27/17 at 17:00; Status DC Non-Formulary Medication (Omeprazole ) 1 cap DAILY06 PO ; Start 11/28/17 at 06: 00; Stop 11/28/17 at 06:00; Status DC Pantoprazole Sodium (Protonix) 40 mg DAILYAC PO Last administered on 12/02/17 07:38; Start 11/28/17 at 07:30 Potassium Chloride (Klor-Con) 20 meq DAILYWBKFT PO Last administered on at 08:44; Start 11/28/17 at 08:00 Simvastatin (Zocor) 20 mg HS PO Last administered on 12/01/17 20:45; Start at 21:00 Spironolactone (Aldactone) 50 mg DAILY PO Last administered on 12/01/17 07:56 ; Start 11/28/17 at 09:00 Sucralfate (Carafate) 1 gm QIDACHS PO Last administered on 12/02/17 07:38; Start 11/27/17 at 16:30 Insulin Human Lispro (HumaLOG) 0-9 UNITS TIDWMEALS SQ Last administered on 12/01at 12:49; Start 11/27/17 at 17:00 Dextrose (Dextrose 50%-Water Syringe) 12.5 gm PRN Q15MIN PRN IV SEE COMMENTS; Start 11/27/17 at 15:30 Hydrochlorothiazide (Microzide) 12.5 mg DAILY PO Last administered on at 08:43; Start 11/28/17 at 09:00; Stop 11/30/17 at 07:51; Status DC Amlodipine Besylate (Norvasc) 10 mg DAILY PO Last administered on 10/8/18at 07: 55; Start 11/28/17 at 09:00 Aspirin (Evelina Aspirin) 325 mg 1X ONCE PO Last administered on 11/27/17at 17:52 ; Start 11/27/17 at 16:15; Stop 11/27/17 at 16:16; Status DC Metformin HCl (Glucophage) 1,000 mg BIDWMEALS PO Last administered on at 16:18; Start 11/27/17 at 17:00; Stop 11/29/17 at 14:55; Status DC Methylprednisolone Acetate (DEPO-Medrol 40MG VIAL) 40 mg 1X ONCE IM Last administered on 11/28/17at 09:15; Start 11/28/17 at 09:15; Stop 11/28/17 at 09:16 ; Status DC Bupivacaine HCl (Sensorcaine-Mpf 0.25%) 10 ml 1X ONCE IJ Last administered on 11/28/17at 09:15; Start 11/28/17 at 09:15; Stop 11/28/17 at 09:16; Status DC Metoprolol Tartrate (Lopressor Vial) 2.5 mg PRN Q3HRS PRN IVP HYPERTENSION, SEE COMMENTS; Start 11/28/17 at 10:45 Morphine Sulfate (Morphine Sulfate) 2 mg 1X ONCE IM ; Start 11/28/17 at 16:00; Stop 11/28/17 at 16:20; Status DC Morphine Sulfate (Morphine Sulfate) 2 mg 1X ONCE IV Last administered on at 16:22; Start 11/28/17 at 16:30; Stop 11/28/17 at 16:31; Status DC Vitamin D (Vitamin D3) 5,000 unit DAILY PO ; Start 11/29/17 at 09:00 Trazodone HCl (Desyrel) 50 mg QHS PO Last administered on 12/01/17at 21:06; Start 11/29/17 at 21:00 Ondansetron HCl (Zofran) 4 mg PRN Q6HRS PRN IV NAUSEA/VOMITING, 1st CHOICE Last administered on 12/01/17at 00:53; Start 11/29/17 at 10:15 Lactulose (Lactulose) 20 gm PRN DAILY PRN PO CONSTIPATION Last administered on 11/29/17at 20:16; Start 11/29/17 at 12:15 Metoclopramide HCl (Reglan Vial) 5 mg PRN Q6HRS PRN IV NAUSEA/VOMITING, 2nd CHOICE Last administered on 12/01/17 04:05; Start 11/29/17 at 12:15; Stop 12/01 at 13:30; Status DC Metoprolol Tartrate (Lopressor Vial) 5 mg Q4HRS IVP Last administered on 07:39; Start 11/29/17 at 16:30 Morphine Sulfate (Morphine Sulfate) 2 mg PRN Q4HRS PRN IV MODERATE TO SEVERE PAIN Last administered on 11/30/17 16:45; Start 11/30/17 at 07:45; Stop at 17:18; Status DC Sodium Chloride 1,000 ml @ 100 mls/hr Q10H IV Last administered on 11/30/17 08:21; Start 11/30/17 at 08:00; Stop 11/30/17 at 17:18; Status DC Ceftriaxone Sodium (Rocephin) 1 gm Q24H IVP Last administered on 12/01/17 16: 20; Start 11/30/17 at 15:30 Morphine Sulfate (Morphine Sulfate) 2 mg PRN Q3HRS PRN IV MODERATE TO SEVERE PAIN Last administered on 12/02/17 07:37; Start 11/30/17 at 17:30 Potassium Chloride/Sodium Chloride 1,000 ml @ 100 mls/hr Q10H IV Last administered on 12/02/17 06:32; Start 11/30/17 at 17:30 Potassium Phosphate (K-Phos Original) 500 mg QID PO Last administered on at 20:45; Start 12/01/17 at 09:00 Hydralazine HCl (Apresoline) 25 mg TID PO Last administered on 12/01/17 21:06 ; Start 12/01/17 at 09:00 Sodium Phosphate 20 mmol/Sodium Chloride 256.6667 ml @ 64.167 m... 1X ONCE IV Last administered on 12/01/17 13:36; Start 12/01/17 at 13:00; Stop 12/01/17 at 16:59; Status DC Metoclopramide HCl (Reglan Vial) 10 mg QIDACHS IV Last administered on 07:37; Start 12/01/17 at 16:30 Lactobacillus Rhamnosus (Culturelle) 1 cap BID PO Last administered on at 20:45; Start 12/01/17 at 21:00 Potassium Chloride (Klor-Con) 40 meq 1X ONCE PO Last administered on at 05:47; Start 12/02/17 at 05:00; Stop 12/02/17 at 05:01; Status DC Active Scripts Active Levemir Flextouch (Insulin Detemir) 100 Unit/1 Ml Insuln.pen 20 Unit SQ QHS 30 Days Reported Metformin Hcl 1,000 Mg Tablet 1,000 Mg PO BIDWMEALS Ferralet 90 Dual-Iron Tablet (Iron, Carb & Gluc/Fa/B12/C/Dss) 1 Each Tablet 1 Tab PO DAILY Reglan (Metoclopramide Hcl) 10 Mg Tablet 1 Tab PO TID PRN Sucralfate 1 Gm Tablet 1 Tab PO QIDACHS Metoprolol Succinate ( Xl ) (Metoprolol Succinate) 100 Mg Tab.er.24h 1 Tab PO DAILY Simvastatin 20 Mg Tablet 1 Tab PO QHS Simla 5-325 Tablet (Acetaminophen/Hydrocodone Bitart) 1 Each Tablet 1 Tab PO BID PRN Levothyroxine Sodium 100 Mcg Tablet 1 Tab PO DAILY05 Spironolactone 50 Mg Tablet 1 Tab PO DAILY Docusate Sodium 100 Mg Capsule 1 Cap PO DAILY Trazodone Hcl 50 Mg Tablet 50 Mg PO QHS Omeprazole 40 Mg Capsule.dr 1 Cap PO DAILY06 Ibuprofen 800 Mg Tablet 800 Mg PO TID PRN Losartan-Hctz 100-12.5 Mg Tab (Losartan/Hydrochlorothiazide) 1 Each Tablet 1 Tab PO DAILY Amitriptyline Hcl 50 Mg Tablet 1 Tab PO QHS Ambien (Zolpidem Tartrate) 5 Mg Tablet 5 Mg PO HS PRN Potassium Chloride 20 Meq Tablet.er 20 Meq PO DAILY Protonix (Pantoprazole Sodium) 20 Mg Tablet.dr 40 Mg PO DAILYAC Amlodipine Besylate 10 Mg Tablet 10 Mg PO BID Vitals/I & O Vital Sign - Last 24 Hours 12/01/17 12/01/17 12/01/17 12/01/17 10:45 10:47 12:46 13:10 Temp 98.1 98.1 Pulse 110 110 110 Resp 16 B/P (MAP) 151/105 (120) 151/105 151/105 Pulse Ox 95 O2 Delivery Room Air 12/01/17 12/01/17 12/01/17 12/01/17 13:33 13:35 14:42 16:18 Temp 98.5 98.5 Pulse 110 111 111 Resp 18 B/P (MAP) 151/105 144/96 (112) 144/96 Pulse Ox 95 96 O2 Delivery Room Air Room Air 12/01/17 12/01/17 12/01/17 12/01/17 16:34 19:45 20:05 21:06 Temp 99.3 99.3 Pulse 95 95 Resp 16 B/P (MAP) 145/93 (110) 145/93 Pulse Ox 96 97 O2 Delivery Room Air Room Air Room Air 12/01/17 12/01/17 12/01/17 12/02/17 21:06 21:45 23:00 00:00 Temp 99.0 99.0 Pulse 95 102 102 Resp 18 16 B/P (MAP) 145/93 144/88 (106) 144/88 Pulse Ox 97 95 O2 Delivery Room Air Room Air 12/02/17 12/02/17 12/02/17 12/02/17 00:29 03:16 04:00 04:23 Temp 98.2 98.2 Pulse 96 96 Resp 20 18 18 B/P (MAP) 109/78 (88) 109/78 Pulse Ox 96 96 98 O2 Delivery Room Air Room Air Room Air 12/02/17 12/02/17 12/02/17 12/02/17 07:37 07:39 07:47 07:51 Temp 98.1 98.1 Pulse 96 96 Resp 20 B/P (MAP) 160/100 160/100 (120) Pulse Ox 98 96 O2 Delivery Room Air Room Air Room Air Intake and Output 12/01/17 12/01/17 12/02/17 15:00 23:00 07:00 Intake Total 500 ml 100 ml Output Total 30 ml Balance -30 ml 500 ml 100 ml YOLIS MORALES MD Dec 02, 2017 08:51
[2017-12-02] MEDS: CHOLECALCIFEROL (VITAMIN D3) 5,000 UNIT CAPSULE PO SCH (08:52)
[2017-12-02] MEDS: FERROUS SULFATE 325 MG TABLET. PO SCH (08:52)
[2017-12-02] MEDS: DOCUSATE SODIUM 100 MG CAPSULE. PO SCH (08:52)
[2017-12-02] MEDS: hydrALAZINE 25 MG TABLET PO SCH ×2 (08:52→13:44)
[2017-12-02] MEDS: POTASSIUM CHLORIDE 20 MEQ TABLET.ER. PO SCH (08:52)
[2017-12-02] MEDS: amLODIPine BESYLATE 10 MG TABLET PO SCH (08:53)
--- NOTE | 2017-12-02 11:16 | PDOC ---
Subjective: Subjective: Feels better. Objective: Objective: Per RN - possible DC today, didn't eat breakfast but then ate some crackers. Vital Signs: Vital Signs Date Time Temp Pulse Resp B/P (MAP) Pulse Ox O2 Delivery O2 Flow Rate FiO2 12/02/17 08:53 96 160/100 12/02/17 07:51 Room Air 12/02/17 07:47 98.1 20 96 98.1 Labs: Laboratory Tests Test 12/01/17 11:46 12/01/17 16:44 12/01/17 21:05 12/02/17 07:33 Glucose (Fingerstick) 208 mg/dL (70-99) 121 mg/dL (70-99) 159 mg/dL (70-99) 156 mg/dL (70-99) PE: GEN: NAD LUNGS: CTAB HEART: RRR ABD: soft, non-tender NEURO/PSYCH: A & O 3 A/P: Anorexia, h/o gastroparesis -on IV Reglan -- Ate a little this morning - ?plans to DC - will change to PO suspension. HARLEY GOEL Dec 02, 2017 11:16
--- NOTE | 2017-12-02 11:37 | PDOC ---
PROGRESS NOTES Assessment Problems Medical Problems: (1) Right sided weakness Status: Acute Gait disorder, mainly due to arthritis, may be some component of a mild peripheral neuropathy as evidenced only by decreased reflexes. Mild cognitive impairment. Right-sided weakness and dysarthria, patient denies this, but did talk about it in the emergency department. No sign of acute stroke. Prior workup for left-sided symptoms was negative in September. 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 No additional neuro studies needed Treatment and workup of hypercalcemia Note plans for fpc unit Follow-up with neurology as needed. Objective Vital Signs Date Time Temp Pulse Resp B/P (MAP) Pulse Ox O2 Delivery O2 Flow Rate FiO2 12/02/17 08:53 96 160/100 12/02/17 07:51 Room Air 12/02/17 07:47 98.1 20 96 98.1 Intake and Output 12/02/17 07:00 Intake Total 600 ml Output Total 30 ml Balance 570 ml Intake Oral 600 ml Emesis 30 ml # Voids 6 PHYSICAL EXAM Alert. Oriented to time, place and person. PERRL. EOMI. CN: no focal findings. Muscle tone: normal. Muscle strength: 5/5 DTR: 1+ Plantar reflex: flexor Gait: not examined in bed. Sensory exam: no abnormal findings. No cerebellar signs elicited. Review of Relevant I have reviewed the following items mert (where applicable) has been applied. Labs Laboratory Tests Test 11/30/17 11:45 11/30/17 11:59 11/30/17 17:10 11/30/17 20:22 White Blood Count 17.4 x10^3/uL (4.0-11.0) Red Blood Count 4.86 x10^6/uL (3.50-5.40) Hemoglobin 13.4 g/dL (12.0-15.5) Hematocrit 38.8 % (36.0-47.0) Mean Corpuscular Volume 80 fL (79-100) Mean Corpuscular Hemoglobin 28 pg (25-35) Mean Corpuscular Hemoglobin Concent 35 g/dL (31-37) Red Cell Distribution Width 21.4 % (11.5-14.5) Platelet Count 256 x10^3/uL (140-400) Neutrophils (%) (Auto) 71 % (31-73) Lymphocytes (%) (Auto) 19 % (24-48) Monocytes (%) (Auto) 9 % (0-9) Eosinophils (%) (Auto) 0 % (0-3) Basophils (%) (Auto) 1 % (0-3) Neutrophils # (Auto) 12.3 x10^3uL (1.8-7.7) Lymphocytes # (Auto) 3.3 x10^3/uL (1.0-4.8) Monocytes # (Auto) 1.6 x10^3/uL (0.0-1.1) Eosinophils # (Auto) 0.0 x10^3/uL (0.0-0.7) Basophils # (Auto) 0.1 x10^3/uL (0.0-0.2) Sodium Level 137 mmol/L (136-145) Potassium Level 3.1 mmol/L (3.5-5.1) Chloride Level 96 mmol/L (98-107) Carbon Dioxide Level 25 mmol/L (21-32) Anion Gap 16 (6-14) Blood Urea Nitrogen 15 mg/dL (7-20) Creatinine 1.2 mg/dL (0.6-1.0) Estimated GFR (Cockcroft-Gault) 53.7 Glucose Level 215 mg/dL (70-99) Calcium Level 10.0 mg/dL (8.5-10.1) Phosphorus Level 2.5 mg/dL (2.6-4.7) Albumin 4.0 g/dL (3.4-5.0) Glucose (Fingerstick) 210 mg/dL (70-99) 173 mg/dL (70-99) 212 mg/dL (70-99) Test 12/01/17 04:32 12/01/17 04:50 12/01/17 07:19 12/01/17 11:46 Sodium Level 137 mmol/L (136-145) Potassium Level 3.4 mmol/L (3.5-5.1) Chloride Level 96 mmol/L (98-107) Carbon Dioxide Level 28 mmol/L (21-32) Anion Gap 13 (6-14) Blood Urea Nitrogen 11 mg/dL (7-20) Creatinine 0.9 mg/dL (0.6-1.0) Estimated GFR (Cockcroft-Gault) 74.9 Glucose Level 212 mg/dL (70-99) Calcium Level 9.8 mg/dL (8.5-10.1) Phosphorus Level 2.0 mg/dL (2.6-4.7) Albumin 3.9 g/dL (3.4-5.0) White Blood Count 12.5 x10^3/uL (4.0-11.0) Red Blood Count 4.85 x10^6/uL (3.50-5.40) Hemoglobin 13.2 g/dL (12.0-15.5) Hematocrit 39.2 % (36.0-47.0) Mean Corpuscular Volume 81 fL (79-100) Mean Corpuscular Hemoglobin 27 pg (25-35) Mean Corpuscular Hemoglobin Concent 34 g/dL (31-37) Red Cell Distribution Width 20.6 % (11.5-14.5) Platelet Count 237 x10^3/uL (140-400) Neutrophils (%) (Auto) 74 % (31-73) Lymphocytes (%) (Auto) 18 % (24-48) Monocytes (%) (Auto) 7 % (0-9) Eosinophils (%) (Auto) 0 % (0-3) Basophils (%) (Auto) 1 % (0-3) Neutrophils # (Auto) 9.2 x10^3uL (1.8-7.7) Lymphocytes # (Auto) 2.2 x10^3/uL (1.0-4.8) Monocytes # (Auto) 0.9 x10^3/uL (0.0-1.1) Eosinophils # (Auto) 0.0 x10^3/uL (0.0-0.7) Basophils # (Auto) 0.1 x10^3/uL (0.0-0.2) Glucose (Fingerstick) 215 mg/dL (70-99) 208 mg/dL (70-99) Test 12/01/17 16:44 12/01/17 21:05 12/02/17 03:10 12/02/17 07:33 Glucose (Fingerstick) 121 mg/dL (70-99) 159 mg/dL (70-99) 156 mg/dL (70-99) White Blood Count 10.8 x10^3/uL (4.0-11.0) Red Blood Count 4.64 x10^6/uL (3.50-5.40) Hemoglobin 12.8 g/dL (12.0-15.5) Hematocrit 37.7 % (36.0-47.0) Mean Corpuscular Volume 81 fL (79-100) Mean Corpuscular Hemoglobin 28 pg (25-35) Mean Corpuscular Hemoglobin Concent 34 g/dL (31-37) Red Cell Distribution Width 20.4 % (11.5-14.5) Platelet Count 209 x10^3/uL (140-400) Neutrophils (%) (Auto) 54 % (31-73) Lymphocytes (%) (Auto) 36 % (24-48) Monocytes (%) (Auto) 9 % (0-9) Eosinophils (%) (Auto) 1 % (0-3) Basophils (%) (Auto) 1 % (0-3) Neutrophils # (Auto) 5.8 x10^3uL (1.8-7.7) Lymphocytes # (Auto) 3.9 x10^3/uL (1.0-4.8) Monocytes # (Auto) 0.9 x10^3/uL (0.0-1.1) Eosinophils # (Auto) 0.1 x10^3/uL (0.0-0.7) Basophils # (Auto) 0.1 x10^3/uL (0.0-0.2) Sodium Level 137 mmol/L (136-145) Potassium Level 2.7 mmol/L (3.5-5.1) Chloride Level 98 mmol/L (98-107) Carbon Dioxide Level 27 mmol/L (21-32) Anion Gap 12 (6-14) Blood Urea Nitrogen 7 mg/dL (7-20) Creatinine 1.0 mg/dL (0.6-1.0) Estimated GFR (Cockcroft-Gault) 66.3 Glucose Level 151 mg/dL (70-99) Calcium Level 8.6 mg/dL (8.5-10.1) Phosphorus Level 2.3 mg/dL (2.6-4.7) Magnesium Level 1.2 mg/dL (1.8-2.4) Albumin 3.2 g/dL (3.4-5.0) Laboratory Tests Test 12/01/17 11:46 12/01/17 16:44 12/01/17 21:05 12/02/17 03:10 Glucose (Fingerstick) 208 mg/dL (70-99) 121 mg/dL (70-99) 159 mg/dL (70-99) White Blood Count 10.8 x10^3/uL (4.0-11.0) Red Blood Count 4.64 x10^6/uL (3.50-5.40) Hemoglobin 12.8 g/dL (12.0-15.5) Hematocrit 37.7 % (36.0-47.0) Mean Corpuscular Volume 81 fL (79-100) Mean Corpuscular Hemoglobin 28 pg (25-35) Mean Corpuscular Hemoglobin Concent 34 g/dL (31-37) Red Cell Distribution Width 20.4 % (11.5-14.5) Platelet Count 209 x10^3/uL (140-400) Neutrophils (%) (Auto) 54 % (31-73) Lymphocytes (%) (Auto) 36 % (24-48) Monocytes (%) (Auto) 9 % (0-9) Eosinophils (%) (Auto) 1 % (0-3) Basophils (%) (Auto) 1 % (0-3) Neutrophils # (Auto) 5.8 x10^3uL (1.8-7.7) Lymphocytes # (Auto) 3.9 x10^3/uL (1.0-4.8) Monocytes # (Auto) 0.9 x10^3/uL (0.0-1.1) Eosinophils # (Auto) 0.1 x10^3/uL (0.0-0.7) Basophils # (Auto) 0.1 x10^3/uL (0.0-0.2) Sodium Level 137 mmol/L (136-145) Potassium Level 2.7 mmol/L (3.5-5.1) Chloride Level 98 mmol/L (98-107) Carbon Dioxide Level 27 mmol/L (21-32) Anion Gap 12 (6-14) Blood Urea Nitrogen 7 mg/dL (7-20) Creatinine 1.0 mg/dL (0.6-1.0) Estimated GFR (Cockcroft-Gault) 66.3 Glucose Level 151 mg/dL (70-99) Calcium Level 8.6 mg/dL (8.5-10.1) Phosphorus Level 2.3 mg/dL (2.6-4.7) Magnesium Level 1.2 mg/dL (1.8-2.4) Albumin 3.2 g/dL (3.4-5.0) Test 12/02/17 07:33 Glucose (Fingerstick) 156 mg/dL (70-99) Microbiology 11/27/17 Urine Culture - Final, Complete 11/27/17 Urine Culture Result 1 (CABRERA) - Final, Complete 11/27/17 Antimicrobic Susceptibility - Final, Complete Medications Current Medications Influenza Virus Vaccine (Afluria Trivalent [id number] Syringe) 0.5 ml ONCE ONCE VAX IM Last administered on 11/27/17at 17:55; Start 11/27/17 at 17:00; Stop 11/27/17 at 17:01; Status DC Amitriptyline HCl (Elavil) 50 mg QHS PO Last administered on 12/01/17at 20:45; Start 11/27/17 at 21:00 Amlodipine Besylate (Norvasc) 10 mg BID PO ; Start 11/27/17 at 21:00; Stop 11/27 at 21:00; Status DC Docusate Sodium (Colace) 100 mg DAILY PO Last administered on 12/02/17at 08:52; Start 11/28/17 at 09:00 Acetaminophen/ Hydrocodone Bitart (Lortab 5/325) 1 tab PRN BID PRN PO MODERATE PAIN Last administered on 12/01/17at 20:45; Start 11/27/17 at 15:30 Levothyroxine Sodium (Synthroid) 100 mcg DAILY05 PO Last administered on at 05:46; Start 11/28/17 at 05:00 Metoclopramide HCl (Reglan) 10 mg PRN TID PRN PO NAUSEA Last administered on at 04:07; Start 11/27/17 at 15:30; Stop 12/01/17 at 13:30; Status DC Metoprolol Succinate (Toprol Xl) 100 mg DAILY PO Last administered on at 08:43; Start 11/28/17 at 09:00; Stop 12/01/17 at 10:07; Status DC Trazodone HCl (Desyrel) 50 mg DAILY PO Last administered on 11/28/17 08:44; Start 11/28/17 at 09:00; Stop 11/29/17 at 08:54; Status DC Zolpidem Tartrate (Ambien) 5 mg PRN QHS PRN PO INSOMNIA Last administered on 20:15; Start 11/27/17 at 15:30 Insulin Glargine (Lantus) 20 units QHS SQ Last administered on 12/01/17 21:18 ; Start 11/27/17 at 21:00 Ferrous Sulfate (Feosol) 325 mg DAILYWBKFT PO Last administered on 12/02/17 08 :52; Start 11/28/17 at 08:00 Losartan Potassium (Cozaar) 100 mg DAILY PO Last administered on 11/28/17 08: 42; Start 11/28/17 at 09:00; Stop 11/30/17 at 07:51; Status DC Metformin HCl (Glucophage) 1,000 mg BIDWMEALS PO ; Start 11/27/17 at 17:00; Stop 11/27/17 at 17:00; Status DC Non-Formulary Medication (Omeprazole ) 1 cap DAILY06 PO ; Start 11/28/17 at 06: 00; Stop 11/28/17 at 06:00; Status DC Pantoprazole Sodium (Protonix) 40 mg DAILYAC PO Last administered on 12/02/17 07:38; Start 11/28/17 at 07:30 Potassium Chloride (Klor-Con) 20 meq DAILYWBKFT PO Last administered on 08:52; Start 11/28/17 at 08:00 Simvastatin (Zocor) 20 mg HS PO Last administered on 12/01/17 20:45; Start at 21:00 Spironolactone (Aldactone) 50 mg DAILY PO Last administered on 12/02/17 08:51 ; Start 11/28/17 at 09:00 Sucralfate (Carafate) 1 gm QIDACHS PO Last administered on 12/02/17 07:38; Start 11/27/17 at 16:30 Insulin Human Lispro (HumaLOG) 0-9 UNITS TIDWMEALS SQ Last administered on 10/8 /18at 12:49; Start 11/27/17 at 17:00 Dextrose (Dextrose 50%-Water Syringe) 12.5 gm PRN Q15MIN PRN IV SEE COMMENTS; Start 11/27/17 at 15:30 Hydrochlorothiazide (Microzide) 12.5 mg DAILY PO Last administered on at 08:43; Start 11/28/17 at 09:00; Stop 11/30/17 at 07:51; Status DC Amlodipine Besylate (Norvasc) 10 mg DAILY PO Last administered on 12/02/17at 08: 53; Start 11/28/17 at 09:00 Aspirin (Evelina Aspirin) 325 mg 1X ONCE PO Last administered on 11/27/17at 17:52 ; Start 11/27/17 at 16:15; Stop 11/27/17 at 16:16; Status DC Metformin HCl (Glucophage) 1,000 mg BIDWMEALS PO Last administered on at 16:18; Start 11/27/17 at 17:00; Stop 11/29/17 at 14:55; Status DC Methylprednisolone Acetate (DEPO-Medrol 40MG VIAL) 40 mg 1X ONCE IM Last administered on 11/28/17at 09:15; Start 11/28/17 at 09:15; Stop 11/28/17 at 09:16 ; Status DC Bupivacaine HCl (Sensorcaine-Mpf 0.25%) 10 ml 1X ONCE IJ Last administered on 11/28/17at 09:15; Start 11/28/17 at 09:15; Stop 11/28/17 at 09:16; Status DC Metoprolol Tartrate (Lopressor Vial) 2.5 mg PRN Q3HRS PRN IVP HYPERTENSION, SEE COMMENTS; Start 11/28/17 at 10:45 Morphine Sulfate (Morphine Sulfate) 2 mg 1X ONCE IM ; Start 11/28/17 at 16:00; Stop 11/28/17 at 16:20; Status DC Morphine Sulfate (Morphine Sulfate) 2 mg 1X ONCE IV Last administered on at 16:22; Start 11/28/17 at 16:30; Stop 11/28/17 at 16:31; Status DC Vitamin D (Vitamin D3) 5,000 unit DAILY PO Last administered on 12/02/17at 08:52 ; Start 11/29/17 at 09:00 Trazodone HCl (Desyrel) 50 mg QHS PO Last administered on 12/01/17 21:06; Start 11/29/17 at 21:00 Ondansetron HCl (Zofran) 4 mg PRN Q6HRS PRN IV NAUSEA/VOMITING, 1st CHOICE Last administered on 12/01/17 00:53; Start 11/29/17 at 10:15 Lactulose (Lactulose) 20 gm PRN DAILY PRN PO CONSTIPATION Last administered on 11/29/17 20:16; Start 11/29/17 at 12:15 Metoclopramide HCl (Reglan Vial) 5 mg PRN Q6HRS PRN IV NAUSEA/VOMITING, 2nd CHOICE Last administered on 12/01/17 04:05; Start 11/29/17 at 12:15; Stop 12/01 at 13:30; Status DC Metoprolol Tartrate (Lopressor Vial) 5 mg Q4HRS IVP Last administered on 07:39; Start 11/29/17 at 16:30 Morphine Sulfate (Morphine Sulfate) 2 mg PRN Q4HRS PRN IV MODERATE TO SEVERE PAIN Last administered on 11/30/17 16:45; Start 11/30/17 at 07:45; Stop at 17:18; Status DC Sodium Chloride 1,000 ml @ 100 mls/hr Q10H IV Last administered on 11/30/17 08:21; Start 11/30/17 at 08:00; Stop 11/30/17 at 17:18; Status DC Ceftriaxone Sodium (Rocephin) 1 gm Q24H IVP Last administered on 12/01/17 16: 20; Start 11/30/17 at 15:30 Morphine Sulfate (Morphine Sulfate) 2 mg PRN Q3HRS PRN IV MODERATE TO SEVERE PAIN Last administered on 12/02/17 07:37; Start 11/30/17 at 17:30 Potassium Chloride/Sodium Chloride 1,000 ml @ 100 mls/hr Q10H IV Last administered on 12/02/17 06:32; Start 11/30/17 at 17:30 Potassium Phosphate (K-Phos Original) 500 mg QID PO Last administered on 08:51; Start 12/01/17 at 09:00 Hydralazine HCl (Apresoline) 25 mg TID PO Last administered on 12/02/17at 08:52 ; Start 12/01/17 at 09:00 Sodium Phosphate 20 mmol/Sodium Chloride 256.6667 ml @ 64.167 m... 1X ONCE IV Last administered on 12/01/17at 13:36; Start 12/01/17 at 13:00; Stop 12/01/17 at 16:59; Status DC Metoclopramide HCl (Reglan Vial) 10 mg QIDACHS IV Last administered on at 07:37; Start 12/01/17 at 16:30 Lactobacillus Rhamnosus (Culturelle) 1 cap BID PO Last administered on at 08:51; Start 12/01/17 at 21:00 Potassium Chloride (Klor-Con) 40 meq 1X ONCE PO Last administered on at 05:47; Start 12/02/17 at 05:00; Stop 12/02/17 at 05:01; Status DC Metoclopramide HCl (Reglan Oral Solution) 10 mg QIDACHS PO ; Start 12/02/17 at 11:30 Active Scripts Active Levemir Flextouch (Insulin Detemir) 100 Unit/1 Ml Insuln.pen 20 Unit SQ QHS 30 Days Reported Metformin Hcl 1,000 Mg Tablet 1,000 Mg PO BIDWMEALS Ferralet 90 Dual-Iron Tablet (Iron, Carb & Gluc/Fa/B12/C/Dss) 1 Each Tablet 1 Tab PO DAILY Reglan (Metoclopramide Hcl) 10 Mg Tablet 1 Tab PO TID PRN Sucralfate 1 Gm Tablet 1 Tab PO QIDACHS Metoprolol Succinate ( Xl ) (Metoprolol Succinate) 100 Mg Tab.er.24h 1 Tab PO DAILY Simvastatin 20 Mg Tablet 1 Tab PO QHS [place] 5-325 Tablet (Acetaminophen/Hydrocodone Bitart) 1 Each Tablet 1 Tab PO BID PRN Levothyroxine Sodium 100 Mcg Tablet 1 Tab PO DAILY05 Spironolactone 50 Mg Tablet 1 Tab PO DAILY Docusate Sodium 100 Mg Capsule 1 Cap PO DAILY Trazodone Hcl 50 Mg Tablet 50 Mg PO QHS Omeprazole 40 Mg Capsule.dr 1 Cap PO DAILY06 Ibuprofen 800 Mg Tablet 800 Mg PO TID PRN Losartan-Hctz 100-12.5 Mg Tab (Losartan/Hydrochlorothiazide) 1 Each Tablet 1 Tab PO DAILY Amitriptyline Hcl 50 Mg Tablet 1 Tab PO QHS Ambien (Zolpidem Tartrate) 5 Mg Tablet 5 Mg PO HS PRN Potassium Chloride 20 Meq Tablet.er 20 Meq PO DAILY Protonix (Pantoprazole Sodium) 20 Mg Tablet.dr 40 Mg PO DAILYAC Amlodipine Besylate 10 Mg Tablet 10 Mg PO BID Vitals/I & O Vital Sign - Last 24 Hours 12/01/17 12/01/17 12/01/17 12/01/17 12:46 13:10 13:33 13:35 Pulse 110 110 B/P (MAP) 151/105 151/105 Pulse Ox 95 O2 Delivery Room Air Room Air 12/01/17 12/01/17 12/01/17 12/01/17 14:42 16:18 16:34 19:45 Temp 98.5 99.3 98.5 99.3 Pulse 111 111 95 Resp 18 16 B/P (MAP) 144/96 (112) 144/96 145/93 (110) Pulse Ox 96 96 97 O2 Delivery Room Air Room Air Room Air 12/01/17 12/01/17 12/01/17 12/01/17 20:05 21:06 21:06 21:45 Pulse 95 95 Resp 18 B/P (MAP) 145/93 145/93 Pulse Ox 97 O2 Delivery Room Air Room Air 12/01/17 12/02/17 12/02/17 12/02/17 23:00 00:00 00:29 03:16 Temp 99.0 98.2 99.0 98.2 Pulse 102 102 96 Resp 16 20 18 B/P (MAP) 144/88 (106) 144/88 109/78 (88) Pulse Ox 95 96 96 O2 Delivery Room Air Room Air Room Air 12/02/17 12/02/17 12/02/17 12/02/17 04:00 04:23 07:37 07:39 Pulse 96 96 Resp 18 B/P (MAP) 109/78 160/100 Pulse Ox 98 98 O2 Delivery Room Air Room Air 12/02/17 12/02/17 12/02/17 12/02/17 07:47 07:51 08:52 08:53 Temp 98.1 98.1 Pulse 96 96 96 Resp 20 B/P (MAP) 160/100 (120) 160/100 160/100 Pulse Ox 96 O2 Delivery Room Air Room Air Intake and Output 12/01/17 12/01/17 12/02/17 15:00 23:00 07:00 Intake Total 500 ml 100 ml Output Total 30 ml Balance -30 ml 500 ml 100 ml [place] MILLER MD Dec 02, 2017 11:37
[2017-12-02 11:39] VITALS: BP 141/100
--- NOTE | 2017-12-02 11:41 | PDOC ---
PROGRESS NOTES Chief Complaint Chief Complaint Right sided weakness Acute encephalopathy Right knee pain UTI Intractable nausea and vomiting History of Present Illness History of Present Illness Pt seen and examined Dw RN Resting w/NAD Vitals Vitals Vital Signs Date Time Temp Pulse Resp B/P (MAP) Pulse Ox O2 Delivery O2 Flow Rate FiO2 12/02/17 08:53 96 160/100 12/02/17 07:51 Room Air 12/02/17 07:47 98.1 20 96 98.1 Physical Exam General: No acute distress Heart: Normal S1, Normal S2, Other (tachycardic) Lungs: Clear, Other Abdomen: Normal bowel sounds, Soft Extremities: No edema, Normal pulses Skin: No rashes, No breakdown Labs LABS Laboratory Tests Test 12/01/17 11:46 12/01/17 16:44 12/01/17 21:05 12/02/17 03:10 Glucose (Fingerstick) 208 mg/dL (70-99) 121 mg/dL (70-99) 159 mg/dL (70-99) White Blood Count 10.8 x10^3/uL (4.0-11.0) Red Blood Count 4.64 x10^6/uL (3.50-5.40) Hemoglobin 12.8 g/dL (12.0-15.5) Hematocrit 37.7 % (36.0-47.0) Mean Corpuscular Volume 81 fL (79-100) Mean Corpuscular Hemoglobin 28 pg (25-35) Mean Corpuscular Hemoglobin Concent 34 g/dL (31-37) Red Cell Distribution Width 20.4 % (11.5-14.5) Platelet Count 209 x10^3/uL (140-400) Neutrophils (%) (Auto) 54 % (31-73) Lymphocytes (%) (Auto) 36 % (24-48) Monocytes (%) (Auto) 9 % (0-9) Eosinophils (%) (Auto) 1 % (0-3) Basophils (%) (Auto) 1 % (0-3) Neutrophils # (Auto) 5.8 x10^3uL (1.8-7.7) Lymphocytes # (Auto) 3.9 x10^3/uL (1.0-4.8) Monocytes # (Auto) 0.9 x10^3/uL (0.0-1.1) Eosinophils # (Auto) 0.1 x10^3/uL (0.0-0.7) Basophils # (Auto) 0.1 x10^3/uL (0.0-0.2) Sodium Level 137 mmol/L (136-145) Potassium Level 2.7 mmol/L (3.5-5.1) Chloride Level 98 mmol/L (98-107) Carbon Dioxide Level 27 mmol/L (21-32) Anion Gap 12 (6-14) Blood Urea Nitrogen 7 mg/dL (7-20) Creatinine 1.0 mg/dL (0.6-1.0) Estimated GFR (Cockcroft-Gault) 66.3 Glucose Level 151 mg/dL (70-99) Calcium Level 8.6 mg/dL (8.5-10.1) Phosphorus Level 2.3 mg/dL (2.6-4.7) Magnesium Level 1.2 mg/dL (1.8-2.4) Albumin 3.2 g/dL (3.4-5.0) Test 12/02/17 07:33 Glucose (Fingerstick) 156 mg/dL (70-99) Review of Systems Review of Systems Resting NAD Assessment and Plan Assessmemt and Plan Assessment: Right sided weakness Acute encephalopathy Right knee pain UTI Intractable nausea and vomiting Depression HTN Hypothyroid HLD GERD DM2 CKD3 Plan: Continue antibiotics Maintenance IVF Replace potassium prn Probable d/c to SNF when stable Home meds Appreciated subspecialist input Comment Review of Relevant I have reviewed the following items mert (where applicable) has been applied. Labs Laboratory Tests Test 11/30/17 11:45 11/30/17 11:59 11/30/17 17:10 11/30/17 20:22 White Blood Count 17.4 x10^3/uL (4.0-11.0) Red Blood Count 4.86 x10^6/uL (3.50-5.40) Hemoglobin 13.4 g/dL (12.0-15.5) Hematocrit 38.8 % (36.0-47.0) Mean Corpuscular Volume 80 fL (79-100) Mean Corpuscular Hemoglobin 28 pg (25-35) Mean Corpuscular Hemoglobin Concent 35 g/dL (31-37) Red Cell Distribution Width 21.4 % (11.5-14.5) Platelet Count 256 x10^3/uL (140-400) Neutrophils (%) (Auto) 71 % (31-73) Lymphocytes (%) (Auto) 19 % (24-48) Monocytes (%) (Auto) 9 % (0-9) Eosinophils (%) (Auto) 0 % (0-3) Basophils (%) (Auto) 1 % (0-3) Neutrophils # (Auto) 12.3 x10^3uL (1.8-7.7) Lymphocytes # (Auto) 3.3 x10^3/uL (1.0-4.8) Monocytes # (Auto) 1.6 x10^3/uL (0.0-1.1) Eosinophils # (Auto) 0.0 x10^3/uL (0.0-0.7) Basophils # (Auto) 0.1 x10^3/uL (0.0-0.2) Sodium Level 137 mmol/L (136-145) Potassium Level 3.1 mmol/L (3.5-5.1) Chloride Level 96 mmol/L (98-107) Carbon Dioxide Level 25 mmol/L (21-32) Anion Gap 16 (6-14) Blood Urea Nitrogen 15 mg/dL (7-20) Creatinine 1.2 mg/dL (0.6-1.0) Estimated GFR (Cockcroft-Gault) 53.7 Glucose Level 215 mg/dL (70-99) Calcium Level 10.0 mg/dL (8.5-10.1) Phosphorus Level 2.5 mg/dL (2.6-4.7) Albumin 4.0 g/dL (3.4-5.0) Glucose (Fingerstick) 210 mg/dL (70-99) 173 mg/dL (70-99) 212 mg/dL (70-99) Test 12/01/17 04:32 12/01/17 04:50 12/01/17 07:19 12/01/17 11:46 Sodium Level 137 mmol/L (136-145) Potassium Level 3.4 mmol/L (3.5-5.1) Chloride Level 96 mmol/L (98-107) Carbon Dioxide Level 28 mmol/L (21-32) Anion Gap 13 (6-14) Blood Urea Nitrogen 11 mg/dL (7-20) Creatinine 0.9 mg/dL (0.6-1.0) Estimated GFR (Cockcroft-Gault) 74.9 Glucose Level 212 mg/dL (70-99) Calcium Level 9.8 mg/dL (8.5-10.1) Phosphorus Level 2.0 mg/dL (2.6-4.7) Albumin 3.9 g/dL (3.4-5.0) White Blood Count 12.5 x10^3/uL (4.0-11.0) Red Blood Count 4.85 x10^6/uL (3.50-5.40) Hemoglobin 13.2 g/dL (12.0-15.5) Hematocrit 39.2 % (36.0-47.0) Mean Corpuscular Volume 81 fL (79-100) Mean Corpuscular Hemoglobin 27 pg (25-35) Mean Corpuscular Hemoglobin Concent 34 g/dL (31-37) Red Cell Distribution Width 20.6 % (11.5-14.5) Platelet Count 237 x10^3/uL (140-400) Neutrophils (%) (Auto) 74 % (31-73) Lymphocytes (%) (Auto) 18 % (24-48) Monocytes (%) (Auto) 7 % (0-9) Eosinophils (%) (Auto) 0 % (0-3) Basophils (%) (Auto) 1 % (0-3) Neutrophils # (Auto) 9.2 x10^3uL (1.8-7.7) Lymphocytes # (Auto) 2.2 x10^3/uL (1.0-4.8) Monocytes # (Auto) 0.9 x10^3/uL (0.0-1.1) Eosinophils # (Auto) 0.0 x10^3/uL (0.0-0.7) Basophils # (Auto) 0.1 x10^3/uL (0.0-0.2) Glucose (Fingerstick) 215 mg/dL (70-99) 208 mg/dL (70-99) Test 12/01/17 16:44 12/01/17 21:05 12/02/17 03:10 12/02/17 07:33 Glucose (Fingerstick) 121 mg/dL (70-99) 159 mg/dL (70-99) 156 mg/dL (70-99) White Blood Count 10.8 x10^3/uL (4.0-11.0) Red Blood Count 4.64 x10^6/uL (3.50-5.40) Hemoglobin 12.8 g/dL (12.0-15.5) Hematocrit 37.7 % (36.0-47.0) Mean Corpuscular Volume 81 fL (79-100) Mean Corpuscular Hemoglobin 28 pg (25-35) Mean Corpuscular Hemoglobin Concent 34 g/dL (31-37) Red Cell Distribution Width 20.4 % (11.5-14.5) Platelet Count 209 x10^3/uL (140-400) Neutrophils (%) (Auto) 54 % (31-73) Lymphocytes (%) (Auto) 36 % (24-48) Monocytes (%) (Auto) 9 % (0-9) Eosinophils (%) (Auto) 1 % (0-3) Basophils (%) (Auto) 1 % (0-3) Neutrophils # (Auto) 5.8 x10^3uL (1.8-7.7) Lymphocytes # (Auto) 3.9 x10^3/uL (1.0-4.8) Monocytes # (Auto) 0.9 x10^3/uL (0.0-1.1) Eosinophils # (Auto) 0.1 x10^3/uL (0.0-0.7) Basophils # (Auto) 0.1 x10^3/uL (0.0-0.2) Sodium Level 137 mmol/L (136-145) Potassium Level 2.7 mmol/L (3.5-5.1) Chloride Level 98 mmol/L (98-107) Carbon Dioxide Level 27 mmol/L (21-32) Anion Gap 12 (6-14) Blood Urea Nitrogen 7 mg/dL (7-20) Creatinine 1.0 mg/dL (0.6-1.0) Estimated GFR (Cockcroft-Gault) 66.3 Glucose Level 151 mg/dL (70-99) Calcium Level 8.6 mg/dL (8.5-10.1) Phosphorus Level 2.3 mg/dL (2.6-4.7) Magnesium Level 1.2 mg/dL (1.8-2.4) Albumin 3.2 g/dL (3.4-5.0) Laboratory Tests Test 12/01/17 11:46 12/01/17 16:44 12/01/17 21:05 12/02/17 03:10 Glucose (Fingerstick) 208 mg/dL (70-99) 121 mg/dL (70-99) 159 mg/dL (70-99) White Blood Count 10.8 x10^3/uL (4.0-11.0) Red Blood Count 4.64 x10^6/uL (3.50-5.40) Hemoglobin 12.8 g/dL (12.0-15.5) Hematocrit 37.7 % (36.0-47.0) Mean Corpuscular Volume 81 fL (79-100) Mean Corpuscular Hemoglobin 28 pg (25-35) Mean Corpuscular Hemoglobin Concent 34 g/dL (31-37) Red Cell Distribution Width 20.4 % (11.5-14.5) Platelet Count 209 x10^3/uL (140-400) Neutrophils (%) (Auto) 54 % (31-73) Lymphocytes (%) (Auto) 36 % (24-48) Monocytes (%) (Auto) 9 % (0-9) Eosinophils (%) (Auto) 1 % (0-3) Basophils (%) (Auto) 1 % (0-3) Neutrophils # (Auto) 5.8 x10^3uL (1.8-7.7) Lymphocytes # (Auto) 3.9 x10^3/uL (1.0-4.8) Monocytes # (Auto) 0.9 x10^3/uL (0.0-1.1) Eosinophils # (Auto) 0.1 x10^3/uL (0.0-0.7) Basophils # (Auto) 0.1 x10^3/uL (0.0-0.2) Sodium Level 137 mmol/L (136-145) Potassium Level 2.7 mmol/L (3.5-5.1) Chloride Level 98 mmol/L (98-107) Carbon Dioxide Level 27 mmol/L (21-32) Anion Gap 12 (6-14) Blood Urea Nitrogen 7 mg/dL (7-20) Creatinine 1.0 mg/dL (0.6-1.0) Estimated GFR (Cockcroft-Gault) 66.3 Glucose Level 151 mg/dL (70-99) Calcium Level 8.6 mg/dL (8.5-10.1) Phosphorus Level 2.3 mg/dL (2.6-4.7) Magnesium Level 1.2 mg/dL (1.8-2.4) Albumin 3.2 g/dL (3.4-5.0) Test 12/02/17 07:33 Glucose (Fingerstick) 156 mg/dL (70-99) Microbiology 11/27/17 Urine Culture - Final, Complete 11/27/17 Urine Culture Result 1 (CABRERA) - Final, Complete 11/27/17 Antimicrobic Susceptibility - Final, Complete Medications Current Medications Influenza Virus Vaccine (Afluria Trivalent [id number] Syringe) 0.5 ml ONCE ONCE VAX IM Last administered on 11/27/17 17:55; Start 11/27/17 at 17:00; Stop 11/27/17 at 17:01; Status DC Amitriptyline HCl (Elavil) 50 mg QHS PO Last administered on 12/01/17at 20:45; Start 11/27/17 at 21:00 Amlodipine Besylate (Norvasc) 10 mg BID PO ; Start 11/27/17 at 21:00; Stop 11/27 at 21:00; Status DC Docusate Sodium (Colace) 100 mg DAILY PO Last administered on 12/02/17 08:52; Start 11/28/17 at 09:00 Acetaminophen/ Hydrocodone Bitart (Lortab 5/325) 1 tab PRN BID PRN PO MODERATE PAIN Last administered on 12/01/17at 20:45; Start 11/27/17 at 15:30 Levothyroxine Sodium (Synthroid) 100 mcg DAILY05 PO Last administered on 05:46; Start 11/28/17 at 05:00 Metoclopramide HCl (Reglan) 10 mg PRN TID PRN PO NAUSEA Last administered on 04:07; Start 11/27/17 at 15:30; Stop 12/01/17 at 13:30; Status DC Metoprolol Succinate (Toprol Xl) 100 mg DAILY PO Last administered on at 08:43; Start 11/28/17 at 09:00; Stop 12/01/17 at 10:07; Status DC Trazodone HCl (Desyrel) 50 mg DAILY PO Last administered on 11/28/17 08:44; Start 11/28/17 at 09:00; Stop 11/29/17 at 08:54; Status DC Zolpidem Tartrate (Ambien) 5 mg PRN QHS PRN PO INSOMNIA Last administered on 20:15; Start 11/27/17 at 15:30 Insulin Glargine (Lantus) 20 units QHS SQ Last administered on 12/01/17 21:18 ; Start 11/27/17 at 21:00 Ferrous Sulfate (Feosol) 325 mg DAILYWBKFT PO Last administered on 12/02/17 08 :52; Start 11/28/17 at 08:00 Losartan Potassium (Cozaar) 100 mg DAILY PO Last administered on 11/28/17 08: 42; Start 11/28/17 at 09:00; Stop 11/30/17 at 07:51; Status DC Metformin HCl (Glucophage) 1,000 mg BIDWMEALS PO ; Start 11/27/17 at 17:00; Stop 11/27/17 at 17:00; Status DC Non-Formulary Medication (Omeprazole ) 1 cap DAILY06 PO ; Start 11/28/17 at 06: 00; Stop 11/28/17 at 06:00; Status DC Pantoprazole Sodium (Protonix) 40 mg DAILYAC PO Last administered on 12/02/17at 07:38; Start 11/28/17 at 07:30 Potassium Chloride (Klor-Con) 20 meq DAILYWBKFT PO Last administered on 08:52; Start 11/28/17 at 08:00 Simvastatin (Zocor) 20 mg HS PO Last administered on 12/01/17 20:45; Start at 21:00 Spironolactone (Aldactone) 50 mg DAILY PO Last administered on 12/02/17at 08:51 ; Start 11/28/17 at 09:00 Sucralfate (Carafate) 1 gm QIDACHS PO Last administered on 12/02/17at 07:38; Start 11/27/17 at 16:30 Insulin Human Lispro (HumaLOG) 0-9 UNITS TIDWMEALS SQ Last administered on 12/01at 12:49; Start 11/27/17 at 17:00 Dextrose (Dextrose 50%-Water Syringe) 12.5 gm PRN Q15MIN PRN IV SEE COMMENTS; Start 11/27/17 at 15:30 Hydrochlorothiazide (Microzide) 12.5 mg DAILY PO Last administered on at 08:43; Start 11/28/17 at 09:00; Stop 11/30/17 at 07:51; Status DC Amlodipine Besylate (Norvasc) 10 mg DAILY PO Last administered on 12/02/17at 08: 53; Start 11/28/17 at 09:00 Aspirin (Evelina Aspirin) 325 mg 1X ONCE PO Last administered on 11/27/17at 17:52 ; Start 11/27/17 at 16:15; Stop 11/27/17 at 16:16; Status DC Metformin HCl (Glucophage) 1,000 mg BIDWMEALS PO Last administered on at 16:18; Start 11/27/17 at 17:00; Stop 11/29/17 at 14:55; Status DC Methylprednisolone Acetate (DEPO-Medrol 40MG VIAL) 40 mg 1X ONCE IM Last administered on 11/28/17at 09:15; Start 11/28/17 at 09:15; Stop 11/28/17 at 09:16 ; Status DC Bupivacaine HCl (Sensorcaine-Mpf 0.25%) 10 ml 1X ONCE IJ Last administered on 11/28/17at 09:15; Start 11/28/17 at 09:15; Stop 11/28/17 at 09:16; Status DC Metoprolol Tartrate (Lopressor Vial) 2.5 mg PRN Q3HRS PRN IVP HYPERTENSION, SEE COMMENTS; Start 11/28/17 at 10:45 Morphine Sulfate (Morphine Sulfate) 2 mg 1X ONCE IM ; Start 11/28/17 at 16:00; Stop 11/28/17 at 16:20; Status DC Morphine Sulfate (Morphine Sulfate) 2 mg 1X ONCE IV Last administered on at 16:22; Start 11/28/17 at 16:30; Stop 11/28/17 at 16:31; Status DC Vitamin D (Vitamin D3) 5,000 unit DAILY PO Last administered on 12/02/17 08:52 ; Start 11/29/17 at 09:00 Trazodone HCl (Desyrel) 50 mg QHS PO Last administered on 12/01/17 21:06; Start 11/29/17 at 21:00 Ondansetron HCl (Zofran) 4 mg PRN Q6HRS PRN IV NAUSEA/VOMITING, 1st CHOICE Last administered on 12/01/17 00:53; Start 11/29/17 at 10:15 Lactulose (Lactulose) 20 gm PRN DAILY PRN PO CONSTIPATION Last administered on 11/29/17 20:16; Start 11/29/17 at 12:15 Metoclopramide HCl (Reglan Vial) 5 mg PRN Q6HRS PRN IV NAUSEA/VOMITING, 2nd CHOICE Last administered on 12/01/17 04:05; Start 11/29/17 at 12:15; Stop 12/01 at 13:30; Status DC Metoprolol Tartrate (Lopressor Vial) 5 mg Q4HRS IVP Last administered on 07:39; Start 11/29/17 at 16:30 Morphine Sulfate (Morphine Sulfate) 2 mg PRN Q4HRS PRN IV MODERATE TO SEVERE PAIN Last administered on 11/30/17 16:45; Start 11/30/17 at 07:45; Stop at 17:18; Status DC Sodium Chloride 1,000 ml @ 100 mls/hr Q10H IV Last administered on 11/30/17 08:21; Start 11/30/17 at 08:00; Stop 11/30/17 at 17:18; Status DC Ceftriaxone Sodium (Rocephin) 1 gm Q24H IVP Last administered on 12/01/17 16: 20; Start 11/30/17 at 15:30 Morphine Sulfate (Morphine Sulfate) 2 mg PRN Q3HRS PRN IV MODERATE TO SEVERE PAIN Last administered on 12/02/17 07:37; Start 11/30/17 at 17:30 Potassium Chloride/Sodium Chloride 1,000 ml @ 100 mls/hr Q10H IV Last administered on 12/02/17 06:32; Start 11/30/17 at 17:30 Potassium Phosphate (K-Phos Original) 500 mg QID PO Last administered on at 08:51; Start 12/01/17 at 09:00 Hydralazine HCl (Apresoline) 25 mg TID PO Last administered on 12/02/17at 08:52 ; Start 12/01/17 at 09:00 Sodium Phosphate 20 mmol/Sodium Chloride 256.6667 ml @ 64.167 m... 1X ONCE IV Last administered on 12/01/17at 13:36; Start 12/01/17 at 13:00; Stop 12/01/17 at 16:59; Status DC Metoclopramide HCl (Reglan Vial) 10 mg QIDACHS IV Last administered on at 07:37; Start 12/01/17 at 16:30 Lactobacillus Rhamnosus (Culturelle) 1 cap BID PO Last administered on at 08:51; Start 12/01/17 at 21:00 Potassium Chloride (Klor-Con) 40 meq 1X ONCE PO Last administered on at 05:47; Start 12/02/17 at 05:00; Stop 12/02/17 at 05:01; Status DC Metoclopramide HCl (Reglan Oral Solution) 10 mg QIDACHS PO ; Start 12/02/17 at 11:30 Active Scripts Active Levemir Flextouch (Insulin Detemir) 100 Unit/1 Ml Insuln.pen 20 Unit SQ QHS 30 Days Reported Metformin Hcl 1,000 Mg Tablet 1,000 Mg PO BIDWMEALS Ferralet 90 Dual-Iron Tablet (Iron, Carb & Gluc/Fa/B12/C/Dss) 1 Each Tablet 1 Tab PO DAILY Reglan (Metoclopramide Hcl) 10 Mg Tablet 1 Tab PO TID PRN Sucralfate 1 Gm Tablet 1 Tab PO QIDACHS Metoprolol Succinate ( Xl ) (Metoprolol Succinate) 100 Mg Tab.er.24h 1 Tab PO DAILY Simvastatin 20 Mg Tablet 1 Tab PO QHS [place] 5-325 Tablet (Acetaminophen/Hydrocodone Bitart) 1 Each Tablet 1 Tab PO BID PRN Levothyroxine Sodium 100 Mcg Tablet 1 Tab PO DAILY05 Spironolactone 50 Mg Tablet 1 Tab PO DAILY Docusate Sodium 100 Mg Capsule 1 Cap PO DAILY Trazodone Hcl 50 Mg Tablet 50 Mg PO QHS Omeprazole 40 Mg Capsule.dr 1 Cap PO DAILY06 Ibuprofen 800 Mg Tablet 800 Mg PO TID PRN Losartan-Hctz 100-12.5 Mg Tab (Losartan/Hydrochlorothiazide) 1 Each Tablet 1 Tab PO DAILY Amitriptyline Hcl 50 Mg Tablet 1 Tab PO QHS Ambien (Zolpidem Tartrate) 5 Mg Tablet 5 Mg PO HS PRN Potassium Chloride 20 Meq Tablet.er 20 Meq PO DAILY Protonix (Pantoprazole Sodium) 20 Mg Tablet.dr 40 Mg PO DAILYAC Amlodipine Besylate 10 Mg Tablet 10 Mg PO BID Vitals/I & O Vital Sign - Last 24 Hours 12/01/17 12/01/17 12/01/17 12/01/17 12:46 13:10 13:33 13:35 Pulse 110 110 B/P (MAP) 151/105 151/105 Pulse Ox 95 O2 Delivery Room Air Room Air 12/01/17 12/01/17 12/01/17 12/01/17 14:42 16:18 16:34 19:45 Temp 98.5 99.3 98.5 99.3 Pulse 111 111 95 Resp 18 16 B/P (MAP) 144/96 (112) 144/96 145/93 (110) Pulse Ox 96 96 97 O2 Delivery Room Air Room Air Room Air 12/01/17 12/01/17 12/01/17 12/01/17 20:05 21:06 21:06 21:45 Pulse 95 95 Resp 18 B/P (MAP) 145/93 145/93 Pulse Ox 97 O2 Delivery Room Air Room Air 12/01/17 12/02/17 12/02/17 12/02/17 23:00 00:00 00:29 03:16 Temp 99.0 98.2 99.0 98.2 Pulse 102 102 96 Resp 16 20 18 B/P (MAP) 144/88 (106) 144/88 109/78 (88) Pulse Ox 95 96 96 O2 Delivery Room Air Room Air Room Air 12/02/17 12/02/17 12/02/17 12/02/17 04:00 04:23 07:37 07:39 Pulse 96 96 Resp 18 B/P (MAP) 109/78 160/100 Pulse Ox 98 98 O2 Delivery Room Air Room Air 12/02/17 12/02/17 12/02/17 12/02/17 07:47 07:51 08:52 08:53 Temp 98.1 98.1 Pulse 96 96 96 Resp 20 B/P (MAP) 160/100 (120) 160/100 160/100 Pulse Ox 96 O2 Delivery Room Air Room Air Intake and Output 12/01/17 12/01/17 12/02/17 15:00 23:00 07:00 Intake Total 500 ml 100 ml Output Total 30 ml Balance -30 ml 500 ml 100 ml ALBERT MALIN III DO Dec 02, 2017 11:41
[2017-12-02] MEDS: HYDROcodone/APAP 5/325MG 1 TAB TABLET PO PRN (12:13)
[2017-12-02] MEDS: METOCLOPRAMIDE ORAL SOLN 10 MG/10 ML SOLUTION. PO SCH ×2 (12:13→16:50)
--- NOTE | 2017-12-02 13:58 | PDOC ---
Renal-Progress Notes Subjective Notes Notes NO NEW COMPLAINTS History of Present Illness Hx of present illness STABLE Vitals Vitals Vital Signs Date Time Temp Pulse Resp B/P (MAP) Pulse Ox O2 Delivery O2 Flow Rate FiO2 12/02/17 13:44 94 141/100 12/02/17 13:35 97 Room Air 12/02/17 11:39 97.4 18 97.4 Weight Weight [ ] I.O. Intake and Output Intake and Output 12/02/17 07:00 Intake Total 600 ml Output Total 30 ml Balance 570 ml Intake Oral 600 ml Emesis 30 ml # Voids 6 Labs Labs Laboratory Tests Test 12/01/17 16:44 12/01/17 21:05 12/02/17 03:10 12/02/17 07:33 Glucose (Fingerstick) 121 mg/dL (70-99) 159 mg/dL (70-99) 156 mg/dL (70-99) White Blood Count 10.8 x10^3/uL (4.0-11.0) Red Blood Count 4.64 x10^6/uL (3.50-5.40) Hemoglobin 12.8 g/dL (12.0-15.5) Hematocrit 37.7 % (36.0-47.0) Mean Corpuscular Volume 81 fL (79-100) Mean Corpuscular Hemoglobin 28 pg (25-35) Mean Corpuscular Hemoglobin Concent 34 g/dL (31-37) Red Cell Distribution Width 20.4 % (11.5-14.5) Platelet Count 209 x10^3/uL (140-400) Neutrophils (%) (Auto) 54 % (31-73) Lymphocytes (%) (Auto) 36 % (24-48) Monocytes (%) (Auto) 9 % (0-9) Eosinophils (%) (Auto) 1 % (0-3) Basophils (%) (Auto) 1 % (0-3) Neutrophils # (Auto) 5.8 x10^3uL (1.8-7.7) Lymphocytes # (Auto) 3.9 x10^3/uL (1.0-4.8) Monocytes # (Auto) 0.9 x10^3/uL (0.0-1.1) Eosinophils # (Auto) 0.1 x10^3/uL (0.0-0.7) Basophils # (Auto) 0.1 x10^3/uL (0.0-0.2) Sodium Level 137 mmol/L (136-145) Potassium Level 2.7 mmol/L (3.5-5.1) Chloride Level 98 mmol/L (98-107) Carbon Dioxide Level 27 mmol/L (21-32) Anion Gap 12 (6-14) Blood Urea Nitrogen 7 mg/dL (7-20) Creatinine 1.0 mg/dL (0.6-1.0) Estimated GFR (Cockcroft-Gault) 66.3 Glucose Level 151 mg/dL (70-99) Calcium Level 8.6 mg/dL (8.5-10.1) Phosphorus Level 2.3 mg/dL (2.6-4.7) Magnesium Level 1.2 mg/dL (1.8-2.4) Albumin 3.2 g/dL (3.4-5.0) Test 12/02/17 12:20 Glucose (Fingerstick) 206 mg/dL (70-99) Micro Micro Microbiology 11/27/17 Urine Culture - Final, Complete 11/27/17 Urine Culture Result 1 (CABRERA) - Final, Complete 11/27/17 Antimicrobic Susceptibility - Final, Complete Review of Systems Constitutional: yes: other (CONFUSED) Physical Exam General Appearance: no apparent distress Skin: warm Respiratory: bilateral CTA Heart: S1S2 Abdomen: bowel sounds present, no masses Genitourinary: bladder flat Extremities: pulses present Assessment Assessment IMP PAM-RESOLVED PROB MILD CKD DESPITE NL CR HYPERCALCEMIA-RESOLVED MET ENCEPHALOPATHY DEMENTIA POSSIBLE CVA LOW K, MG AND PO4 DM II LEUCOCYTOSIS PLAN SUPPORTIVE CARE CONT WITH IVF'S CONT WITH K, MG AND PO4 REPLACEMENT ANTIBIOTICS CLAYTON LAMBERT MD Dec 02, 2017 13:57
[2017-12-02] MEDS ORDERED: MAGNESIUM SULFATE 2GM 50 ML IV ONE (14:00)
--- NOTE | 2017-12-02 14:03 | DISCH ---
DISCHARGE DISCHARGE INFORMATION: FINAL DIAGNOSIS Problems Medical Problems: (1) Right sided weakness Status: Acute CONDITION ON DISCHARGE: Stable CODE STATUS: Code Status: Full MCFP: SNF STAY <30 DAYS: Yes HOSPICE: HOSPICE: No HOSPICE EVAL & TREAT: No LTAC: ADMIT TO LTAC: No POST DISCHARGE ORDERS: ACTIVITY ORDERS: Activity as tolerated WEIGHT BEARING STATUS: Full weight bearing DIET AFTER DISCHARGE: Cardiac WOUND/INCISION CARE: No wound care needed CHECKS AFTER DISCHARGE: CHECKS AFTER DISCHARGE: Check blood press - daily, Check blood sugar, ac/hs, Check your Temp as needed TREATMENT/EQUIPMENT ORDERS: ADAPTIVE EQUIPMENT NEEDED: None Physical Therapy For: Evalulation/Treatment Occupational Therapy For: Evaluation/Treatment DISCHARGE MEDICATIONS: Home Meds Active Scripts Insulin Detemir (Levemir Flextouch) 100 Unit/1 Ml Insuln.pen, 20 UNIT SQ QHS for 30 Days, SYR Prov:MARIBEL MARIEE MD 04/28/17 Reported Medications Metformin Hcl (METFORMIN HCL) 1,000 Mg Tablet, 1000 MG PO BIDWMEALS, TAB 10/13/17 Iron, Carb & Gluc/Fa/B12/C/Dss (FERRALET 90 DUAL-IRON TABLET) 1 Each Tablet, 1 TAB PO DAILY, #90 TAB 3 Refills 10/13/17 Metoclopramide Hcl (REGLAN) 10 Mg Tablet, 1 TAB PO TID PRN for NAUSEA, #90 TAB 10/13/17 Sucralfate (SUCRALFATE) 1 Gm Tablet, 1 TAB PO QIDACHS, #120 TAB 3 Refills 10/13/17 Metoprolol Succinate (METOPROLOL SUCCINATE ( XL )) 100 Mg Tab.er.24h, 1 TAB PO DAILY, #30 TAB 5 Refills 10/13/17 Simvastatin (SIMVASTATIN) 20 Mg Tablet, 1 TAB PO QHS, #30 TAB 5 Refills 10/13/17 Hydrocodone/Apap 5-325 (NORCO 5-325 TABLET) 1 Each Tablet, 1 TAB PO BID PRN for PAIN, #60 TAB 10/13/17 Levothyroxine Sodium (LEVOTHYROXINE SODIUM) 100 Mcg Tablet, 1 TAB PO DAILY05, # 30 TAB 5 Refills 10/13/17 Spironolactone (SPIRONOLACTONE) 50 Mg Tablet, 1 TAB PO DAILY, #30 TAB 5 Refills 8/20/18 Docusate Sodium (DOCUSATE SODIUM) 100 Mg Capsule, 1 CAP PO DAILY, #30 CAP 10/13/17 Trazodone Hcl (TRAZODONE HCL) 50 Mg Tablet, 50 MG PO QHS, TAB 10/13/17 Omeprazole (OMEPRAZOLE) 40 Mg Capsule.dr, 1 CAP PO DAILY06, #30 CAP 3 Refills 10/13/17 Ibuprofen (IBUPROFEN) 800 Mg Tablet, 800 MG PO TID PRN for INFLAMMATION, TAB 10/13/17 Losartan/Hydrochlorothiazide (LOSARTAN-HCTZ 100-12.5 MG TAB) 1 Each Tablet, 1 TAB PO DAILY, #30 TAB 5 Refills 10/13/17 Amitriptyline Hcl (AMITRIPTYLINE HCL) 50 Mg Tablet, 1 TAB PO QHS, #30 TAB 1 Refill 10/13/17 Zolpidem Tartrate (AMBIEN) 5 Mg Tablet, 5 MG PO HS PRN for INSOMNIA, TAB 0 Refills 05/25/17 Potassium Chloride (POTASSIUM CHLORIDE) 20 Meq Tablet.er, 20 MEQ PO DAILY, TAB.SR 04/07/17 Pantoprazole Sodium (PROTONIX) 20 Mg Tablet.dr, 40 MG PO DAILYAC, TAB 04/07/17 Amlodipine Besylate (AMLODIPINE BESYLATE) 10 Mg Tablet, 10 MG PO BID, #60 07/31/16 ALBERT MALIN III DO Dec 02, 2017 14:03
[2017-12-02 15:11] VITALS: BP 144/87
[2017-12-02] MEDS: cefTRIAXone IV Push 1 GM VIAL. IVP SCH (15:38)
[2017-12-02 16:51] VITALS: BP 144/87
== END 2017-12-02 18:47 | DRG 682 ==
LOC: ER 10:18 → 6 SOUTH 12:45
PROVIDERS: ADMIT Internal Medicine; ATTEND Internal Medicine
DX: N17.9 Acute kidney failure, unspecified (principal); G93.41 Metabolic encephalopathy; N39.0 Urinary tract infection, site not specified; E83.52 Hypercalcemia; F41.9 Anxiety disorder, unspecified; G89.29 Other chronic pain; K21.9 Gastro-esophageal reflux disease without esophagitis; I12.9 Hypertensive chronic kidney disease with stage 1 through stage 4 chronic kidney disease, or unspecified chronic kidney disease; E78.00 Pure hypercholesterolemia, unspecified; E11.42 Type 2 diabetes mellitus with diabetic polyneuropathy; E89.0 Postprocedural hypothyroidism; Z96.652 Presence of left artificial knee joint; N18.3 Chronic kidney disease, stage 3 (moderate); E11.22 Type 2 diabetes mellitus with diabetic chronic kidney disease; F32.9 Major depressive disorder, single episode, unspecified; K57.30 Diverticulosis of large intestine without perforation or abscess without bleeding; R32 Unspecified urinary incontinence; M19.90 Unspecified osteoarthritis, unspecified site; D64.89 Other specified anemias; E11.43 Type 2 diabetes mellitus with diabetic autonomic (poly)neuropathy; K31.84 Gastroparesis; F03.90 Unspecified dementia, unspecified severity, without behavioral disturbance, psychotic disturbance, mood disturbance, and anxiety; E78.5 Hyperlipidemia, unspecified; E66.9 Obesity, unspecified; Z68.34 Body mass index [BMI] 34.0-34.9, adult; Z90.710 Acquired absence of both cervix and uterus; Z88.2 Allergy status to sulfonamides; Z90.49 Acquired absence of other specified parts of digestive tract; Z82.49 Family history of ischemic heart disease and other diseases of the circulatory system; Z88.8 Allergy status to other drugs, medicaments and biological substances; Z79.899 Other long term (current) drug therapy; Z86.711 Personal history of pulmonary embolism; Z83.3 Family history of diabetes mellitus
CPT/HCPCS: 36415; 70450; 70551; 73560; 74018; 74176; 80053; 80069; 80307; 81001; 82306; 82962; 83735; 83970; 84443; 84484; 85007; 85025; 85610; 87086; 87186; 90471; 90756; 93005; G0480; J0696; J1030; J1815; J2270; J2405; J2765; J3475; J3490; J7030; J7050; J8597; 92523; 97110; 97116; 97530; 97535; 99285-25; G0479; Q2035

== ENCOUNTER 2018-04-19 11:10 | Inpatient (IN) | payer MEDICARE ==
[~2018-04-19] VITALS: Ht 167.6 cm; Wt 81.8 kg
[~2018-04-19 11:10] MED LIST changes: -AMLO10TA6 PO; +AMLO10TA8 PO; -HYDR-2758 PO; +HYDR-2761 PO; -HYDR-2762 PO; +HYDR-2765 PO; +HYDR-3164 PO; +HYDR-3165 PO; -HYDR-965 PO; -HYDR-971 PO; -HYDR12.53 PO; +HYDR12.575 PO; -HYDR15SO4 PO; +HYDR15SO6 PO; +LOSA100T14 PO; -LOSA100T7 PO; +TRAZ-118 PO; -TRAZ-85 PO
[2018-04-19 12:07] LABS: BILIRUBIN,URINE SMALL (NEG); CLARITY,URINE CLOUDY; COLOR,URINE YELLOW; NITRITE,URINE NEGATIVE (NEG); PROTEIN,URINE NEGATIVE (NEG-TRACE); UROBILINOGEN,URINE 0.2 mg/dL (0.2 mg/dL)
[2018-04-19 12:22] LABS: BACTERIA,URINE MANY /HPF (0-FEW); RBC,URINE OCC /HPF (0-2); SQUAMOUS EPITHELIAL CELL,UR MANY /LPF
[2018-04-19] MEDS ORDERED: IV NORMAL SALINE 1000ML BAG 1,000 ML IV ONE (12:30)
[2018-04-19] MEDS ORDERED: MORPHINE SULFATE 4 MG/ML VIAL. IV ONE ×2 (12:30→15:15)
[2018-04-19] MEDS ORDERED: ONDANSETRON PF 4 MG/2 ML VIAL. IV ONE (12:30)
[2018-04-19 12:34] LABS: BASO # 0.1 x10^3/uL (0.0-0.2); BASO % 1 % (0-3); EOS % 1 % (0-3); HEMATOCRIT 33.2 % (36.0-47.0); HEMOGLOBIN 11.2 g/dL (12.0-15.5); LYMPH # 2.1 x10^3/uL (1.0-4.8); LYMPH % 32 % (24-48); MEAN CORPUSCULAR HEMOGLOBIN 31 pg (25-35); MEAN CORPUSCULAR HGB CONC 34 g/dL (31-37); MEAN CORPUSCULAR VOLUME 91 fL (79-100); MONO # 0.6 x10^3/uL (0.0-1.1); MONO % 9 % (0-9); NEUT # 3.9 x10^3uL (1.8-7.7); NEUT % 58 % (31-73); PLATELET COUNT 230 x10^3/uL (140-400); RED BLOOD COUNT 3.63 x10^6/uL (3.50-5.40); RED CELL DISTRIBUTION WIDTH 14.6 % (11.5-14.5); WHITE BLOOD COUNT 6.7 x10^3/uL (4.0-11.0)
[2018-04-19 12:54] LABS: CALCIUM 10.3 mg/dL (8.5-10.1); CREATININE 3.4 mg/dL (0.6-1.0); GFR 16.2; POTASSIUM 5.2 mmol/L (3.5-5.1)
[2018-04-19 12:59] LABS: ALBUMIN 3.9 g/dL (3.4-5.0); TOTAL BILIRUBIN 0.4 mg/dL (0.2-1.0); TOTAL PROTEIN 7.9 g/dL (6.4-8.2)
--- NOTE | 2018-04-19 14:41 | RAD ---
CT HEAD WO CONTRAST Indication: HEADACHE X 1 WEEK
PREVIOUS Exposure: One or more of the following individualized dose reduction techniques were utilized for this examination: 1. Automated exposure control 2. Adjustment of the mA and/or kV according to patient size 3. Use of iterative reconstruction technique. Comparison: None are available. Contrast: None Findings: Comparison with November 27, 2017 No evidence of acute intracranial hemorrhage, mass effect, midline shift or abnormal extra-axial fluid collection. Ventricles and sulci are mildly prominent compatible with atrophy. The partially visualized sinuses are clear. No evidence of acute skull abnormality. Partially seen orbits are unremarkable. IMPRESSION: No evidence of acute intracranial hemorrhage or mass effect. Electronically signed by: Krishna Naik MD (04/19/2018 2:38 PM) [facility]
--- NOTE | 2018-04-19 14:46 | RAD ---
CT ABDOMEN PELVIS WO CONTRAST Indication: LOWER ABD PAIN X 1 WEEK
PREVIOUS Exposure: One or more of the following individualized dose reduction techniques were utilized for this examination: 1. Automated exposure control 2. Adjustment of the mA and/or kV according to patient size 3. Use of iterative reconstruction technique. Comparison: November 29, 2017 There is motion degradation, may limit accuracy. Lung bases are clear. Heart size enlarged. Liver and spleen grossly unremarkable. Pancreas unremarkable. Hypodense lesions of the kidneys are again identified, most likely cysts. Margins are irregular but that may be due to the motion degradation. The larger lesions demonstrate fluid density as would be expected with a cyst. No evidence of hydronephrosis or calcified stone. Gallbladder is visualized. Aorta is mildly calcified and tortuous without aneurysm. No evidence of significant lymph node enlargement. Small hiatal hernia. Colonic diverticulosis. No evidence of acute colitis. Appendix is normal. No ascites or pneumoperitoneum. Urinary bladder is unremarkable. No evidence of pelvic mass. Severe degenerative changes of the spine with left convexity scoliosis. There is thoracolumbar stenosis. IMPRESSION: 1. Hypodense renal lesions, the larger of which are likely cysts and were seen previously. 2. Colonic diverticulosis without evidence of acute colitis. 3. Severe thoracolumbar spondylosis with stenosis. Electronically signed by: Krishna Naik MD (04/19/2018 2:43 PM) [facility]
[2018-04-19] MEDS: IV NORMAL SALINE 1000ML BAG 1,000 ML IV SCH (15:06)
--- NOTE | 2018-04-19 15:25 | PHYS DOC ---
Past Medical History Past Medical History: Diabetes-Type II, GERD, High Cholesterol, Hypertension, Hypothyroid, Other Additional Past Medical Histor: Hernia,gastroporesis Past Surgical History: Cholecystectomy, Hysterectomy, Knee Replacement, Other Additional Past Surgical Histo: EGD,Cataract removed BILAT EYES, GTUBE PLACEMENT AND D/C Alcohol Use: None Drug Use: None Adult General Chief Complaint Chief Complaint: HEADACHE HPI HPI Patient is a 72 year old female presented to ER today for evaluation of headache that sHE been dealing with for the last 4 days. Patient had taken over- the-counter medication but did not improve. Patient denies any slurred speech, no focal weakness, no blurry vision. She denies any neck pain, no fever. Patient denies any head injury. Patient also complaint of epigastric this abdominal pain. She had history gastroparesis, DENIED any vomiting but felt nauseous. Review of Systems Review of Systems Constitutional: Denies fever or chills [] Eyes: Denies change in visual acuity, redness, or eye pain [] HENT: Denies nasal congestion or sore throat [] Respiratory: Denies cough or shortness of breath [] Cardiovascular: No additional information not addressed in HPI [] GI: positive for abdominal pain, nausea, NO vomiting, bloody stools or diarrhea [] : Denies dysuria or hematuria [] Musculoskeletal: Denies back pain or joint pain [] Integument: Denies rash or skin lesions [] Neurologic: Positive for headache, NO focal weakness or sensory changes [] Endocrine: Denies polyuria or polydipsia [] All other systems were reviewed and found to be within normal limits, except as documented in this note. Current Medications Current Medications Current Medications Medications (Trade) Dose Ordered Sig/Alo Start Time Stop Time Status Last Admin Dose Admin Morphine Sulfate (Morphine Sulfate) 2 mg PRN Q2HR PRN 04/19/18 15:15 04/20/18 15:14 DC 04/20/18 10:30 2 MG Ondansetron HCl (Zofran) 4 mg PRN Q8HRS PRN 04/19/18 15:15 04/20/18 10:34 DC 04/20/18 02:28 4 MG Sodium Chloride 1,000 ml @ 75 mls/hr [id number] 04/19/18 15:06 04/20/18 15:05 DC 04/20/18 04:41 75 MLS/HR Allergies Allergies Allergies Coded Allergies Type Severity Reaction Last Updated Verified Sulfa (Sulfonamide Antibiotics) Allergy Intermediate 04/19/18 Yes prochlorperazine Adverse Reaction Intermediate DIZZY 04/19/18 Yes Physical Exam Physical Exam Constitutional: Well developed, well nourished, no acute distress, non-toxic appearance. [] HENT: Normocephalic, atraumatic, bilateral external ears normal, oropharynx moist, no oral exudates, nose normal. [] Eyes: PERRLA, EOMI, conjunctiva normal, no discharge. [] Neck: Normal range of motion, no tenderness, supple, no stridor. [] Cardiovascular:Heart rate regular rhythm, no murmur [] Lungs & Thorax: Bilateral breath sounds clear to auscultation [] Abdomen: Bowel sounds normal, soft, no tenderness, no masses, no pulsatile masses. [] Skin: Warm, dry, no erythema, no rash. [] Back: No tenderness, no CVA tenderness. [] Extremities: No tenderness, no cyanosis, no clubbing, ROM intact, no edema. [] Neurologic: Alert and oriented X 3, normal motor function, normal sensory function, no focal deficits noted. [] Psychologic: Affect normal, judgement normal, mood normal. [] Current Patient Data Vital Signs Vital Signs Date Time Temp Pulse Resp B/P (MAP) Pulse Ox O2 Delivery O2 Flow Rate FiO2 04/19/18 14:30 62 18 100 04/19/18 13:00 Room Air 04/19/18 11:25 97.7 110/64 (79) 97.7 Lab Values Laboratory Tests Test 04/19/18 11:40 04/19/18 12:20 Urine Collection Type Unknown Urine Color Yellow Urine Clarity Cloudy Urine pH 5.0 Urine Specific [place] 1.020 Urine Protein Negative mg/dL (NEG-TRACE) Urine Glucose (UA) Negative mg/dL (NEG) Urine Ketones (Stick) Trace mg/dL (NEG) Urine Blood Trace (NEG) Urine Nitrite Negative (NEG) Urine Bilirubin Small (NEG) Urine Urobilinogen Dipstick 0.2 mg/dL (0.2 mg/dL) Urine Leukocyte Esterase Large (NEG) Urine RBC Occ /HPF (0-2) Urine WBC 11-20 /HPF (0-4) Urine Squamous Epithelial Cells Many /LPF Urine Bacteria Many /HPF (0-FEW) Urine Mucus Mod /LPF White Blood Count 6.7 x10^3/uL (4.0-11.0) Red Blood Count 3.63 x10^6/uL (3.50-5.40) Hemoglobin 11.2 g/dL (12.0-15.5) L Hematocrit 33.2 % (36.0-47.0) L Mean Corpuscular Volume 91 fL (79-100) Mean Corpuscular Hemoglobin 31 pg (25-35) Mean Corpuscular Hemoglobin Concent 34 g/dL (31-37) Red Cell Distribution Width 14.6 % (11.5-14.5) H Platelet Count 230 x10^3/uL (140-400) Neutrophils (%) (Auto) 58 % (31-73) Lymphocytes (%) (Auto) 32 % (24-48) Monocytes (%) (Auto) 9 % (0-9) Eosinophils (%) (Auto) 1 % (0-3) Basophils (%) (Auto) 1 % (0-3) Neutrophils # (Auto) 3.9 x10^3uL (1.8-7.7) Lymphocytes # (Auto) 2.1 x10^3/uL (1.0-4.8) Monocytes # (Auto) 0.6 x10^3/uL (0.0-1.1) Eosinophils # (Auto) 0.0 x10^3/uL (0.0-0.7) Basophils # (Auto) 0.1 x10^3/uL (0.0-0.2) Sodium Level 132 mmol/L (136-145) L Potassium Level 5.2 mmol/L (3.5-5.1) H Chloride Level 97 mmol/L (98-107) L Carbon Dioxide Level 20 mmol/L (21-32) L Anion Gap 15 (6-14) H Blood Urea Nitrogen 33 mg/dL (7-20) H Creatinine 3.4 mg/dL (0.6-1.0) H Estimated GFR (Cockcroft-Gault) 16.2 BUN/Creatinine Ratio 10 (6-20) Glucose Level 155 mg/dL (70-99) H Calcium Level 10.3 mg/dL (8.5-10.1) H Total Bilirubin 0.4 mg/dL (0.2-1.0) Aspartate Amino Transferase (AST) 18 U/L (15-37) Alanine Aminotransferase (ALT) 11 U/L (14-59) L Alkaline Phosphatase 51 U/L (46-116) Total Protein 7.9 g/dL (6.4-8.2) Albumin 3.9 g/dL (3.4-5.0) Albumin/Globulin Ratio 1.0 (1.0-1.7) Lipase 142 U/L (73-393) Laboratory Tests 04/19/18 12:20 Laboratory Tests 04/19/18 12:20 Microbiology 04/19/18 Urine Culture - Final, Complete 04/19/18 Urine Culture Result 1 (CABRERA) - Final, Complete EKG EKG [] Radiology/Procedures Radiology/Procedures [][address] [address] IMAGING REPORT Signed PATIENT: HI CRYSTAL ACCOUNT: [id number] : 1945 LOCATION: ER AGE: 72 SEX: F EXAM STATUS: REG ER ORD. PHYSICIAN: MAGGIE TYLER DO REASON: HEADACHE FOR A WEEK PROCEDURE: CT HEAD WO CONTRAST CT HEAD WO CONTRAST Indication: HEADACHE X 1 WEEK
PREVIOUS Exposure: One or more of the following individualized dose reduction techniques were utilized for this examination: 1. Automated exposure control 2. Adjustment of the mA and/or kV according to patient size 3. Use of iterative reconstruction technique. Comparison: None are available. Contrast: None Findings: Comparison with November 27, 2017 No evidence of acute intracranial hemorrhage, mass effect, midline shift or abnormal extra-axial fluid collection. Ventricles and sulci are mildly prominent compatible with atrophy. The partially visualized sinuses are clear. No evidence of acute skull abnormality. Partially seen orbits are unremarkable. IMPRESSION: No evidence of acute intracranial hemorrhage or mass effect. Electronically signed by: Krishna Naik MD (04/19/2018 2:38 PM) [facility] DICTATED and SIGNED BY: KRISHNA NAIK MD DATE: 04/19/[address] [address] IMAGING REPORT Signed PATIENT: HI CRYSTAL ACCOUNT: [id number] : 1945 LOCATION: ER AGE: 72 SEX: F EXAM STATUS: REG ER ORD. PHYSICIAN: MAGGIE TYLER DO REASON: ABDOMINAL PAIN PROCEDURE: CT ABDOMEN PELVIS WO CONTRAST CT ABDOMEN PELVIS WO CONTRAST Indication: LOWER ABD PAIN X 1 WEEK
PREVIOUS Exposure: One or more of the following individualized dose reduction techniques were utilized for this examination: 1. Automated exposure control 2. Adjustment of the mA and/or kV according to patient size 3. Use of iterative reconstruction technique. Comparison: November 29, 2017 There is motion degradation, may limit accuracy. Lung bases are clear. Heart size enlarged. Liver and spleen grossly unremarkable. Pancreas unremarkable. Hypodense lesions of the kidneys are again identified, most likely cysts. Margins are irregular but that may be due to the motion degradation. The larger lesions demonstrate fluid density as would be expected with a cyst. No evidence of hydronephrosis or calcified stone. Gallbladder is visualized. Aorta is mildly calcified and tortuous without aneurysm. No evidence of significant lymph node enlargement. Small hiatal hernia. Colonic diverticulosis. No evidence of acute colitis. Appendix is normal. No ascites or pneumoperitoneum. Urinary bladder is unremarkable. No evidence of pelvic mass. Severe degenerative changes of the spine with left convexity scoliosis. There is thoracolumbar stenosis. IMPRESSION: 1. Hypodense renal lesions, the larger of which are likely cysts and were seen previously. 2. Colonic diverticulosis without evidence of acute colitis. 3. Severe thoracolumbar spondylosis with stenosis. Electronically signed by: Krishna Naik MD (04/19/2018 2:43 PM) [facility] DICTATED and SIGNED BY: KRISHNA NAIK MD DATE: 04/19/18 1438 Course & Med Decision Making Course & Med Decision Making Pertinent Labs and Imaging studies reviewed. (See chart for details) [] Dragon Disclaimer Dragon Disclaimer This electronic medical record was generated, in whole or in part, using a voice recognition dictation system. Departure Departure Impression: Primary Impression: Headache Additional Impressions: Renal failure Gastroparesis Disposition: ADMITTED INPATIENT Admitting Physician: Rosalind Navarro Condition: STABLE Referrals: TONY HARE MD (PCP) Problem Qualifiers MAGGIE TYLER DO Apr 19, 2018 15:25
[2018-04-19 16:58] VITALS: BP 124/67
[2018-04-19] MEDS: MORPHINE SULFATE 4 MG/ML VIAL. IV PRN ×2 (17:52→19:40)
[2018-04-19] MEDS: ONDANSETRON PF 4 MG/2 ML VIAL. IV PRN (18:17)
[2018-04-19] MEDS ORDERED: METOCLOPRAMIDE 10 MG TABLET. PO PRN (18:45)
[2018-04-19] MEDS ORDERED: PROCHLORPERAZINE 10 MG/2 ML VIAL. IV PRN (18:45)
[2018-04-19 19:00] VITALS: BP 138/74
[2018-04-19] MEDS ORDERED: POLYETHYLENE GLYCOL 3350 17 GM PACKET. PO ONE (19:30)
--- NOTE | 2018-04-19 19:41 | PDOC1 ---
History and Physical Date of Admission Date of Admission DATE: 04/19/18 TIME: 19:35 Identification/Chief Complaint Chief Complaint abd pain, and headache, and nausea Source Source: Chart review, Patient History of Present Illness History of Present Illness Ms. Doherty admit from ER, ongoing nausea and abdomianl pain. poor PO intake for days. known gastroparesis, she feels reglan does not help, she has seen Dr. Merritt before. Headache, 8./10 pain, frontal, no meds have helped, no sinus pressure or drainage, no prodrome or aura, no hx migrane no stool 4 days, noted weakness, prior problem, and she has been living with her daughter for awhile for more help Past Medical History Cardiovascular: HTN, Hyperlipidemia Pulmonary: Pulmonary embolus, Other GI: Diverticulosis, GERD, Other Heme/Onc: Anemia NOS Psych: Anxiety Renal/: UTI, Urinary Incontinence Endocrine: Diabetes, Hypothyroidism Past Surgical History Past Surgical History: Cholecystectomy, Cataract Removal, Total knee replacement, Hysterectomy, Other Family History Family History: Coronary Artery Disease, Diabetes, Hypertension Social History Smoke: No ALCOHOL: none Drugs: None Current Problem List Problem List Problems Medical Problems: (1) Gastroparesis Status: Acute (2) Headache Status: Acute (3) Renal failure Status: Acute Current Medications Current Medications Current Medications Ondansetron HCl (Zofran) 8 mg 1X ONCE IV Last administered on 04/19/18at 12:30 ; Start 04/19/18 at 12:30; Stop 04/19/18 at 12:31; Status DC Morphine Sulfate (Morphine Sulfate) 4 mg 1X ONCE IV Last administered on at 12:30; Start 04/19/18 at 12:30; Stop 04/19/18 at 12:31; Status DC Sodium Chloride 1,000 ml @ 1,000 mls/hr 1X ONCE IV Last administered on at 12:30; Start 04/19/18 at 12:30; Stop 04/19/18 at 13:29; Status DC Morphine Sulfate (Morphine Sulfate) 4 mg 1X ONCE IV Last administered on at 15:37; Start 04/19/18 at 15:15; Stop 04/19/18 at 15:16; Status DC Ondansetron HCl (Zofran) 4 mg PRN Q8HRS PRN IV NAUSEA/VOMITING Last administered on 04/19/18at 18:17; Start 04/19/18 at 15:15; Stop 04/20/18 at 15:14 Morphine Sulfate (Morphine Sulfate) 2 mg PRN Q2HR PRN IV PAIN Last administered on 04/19/18at 17:52; Start 04/19/18 at 15:15; Stop 04/20/18 at 15:14 Sodium Chloride 1,000 ml @ 75 mls/hr [id number] IV ; Start 04/19/18 at 15:06; Stop 04/20/18 at 15:05 Prochlorperazine Edisylate (Compazine) 10 mg PRN Q6HRS PRN IV NAUSEA/VOMITING; Start 04/19/18 at 18:45 Amlodipine Besylate (Norvasc) 10 mg BID PO ; Start 04/19/18 at 21:00 Docusate Sodium (Colace) 100 mg DAILY PO ; Start 04/20/18 at 09:00; Stop at 09:00; Status DC Acetaminophen/ Hydrocodone Bitart (Lortab 5/325) 1 tab PRN BID PRN PO PAIN; Start 04/19/18 at 18:45 Levothyroxine Sodium (Synthroid) 100 mcg DAILY05 PO ; Start 04/20/18 at 05:00 Metoclopramide HCl (Reglan) 10 mg PRN TID PRN PO NAUSEA; Start 04/19/18 at 18: 45 Metoprolol Succinate (Toprol Xl) 100 mg DAILY PO ; Start 04/20/18 at 09:00 Trazodone HCl (Desyrel) 50 mg QHS PO ; Start 04/19/18 at 21:00 Zolpidem Tartrate (Ambien) 5 mg PRN QHS PRN PO INSOMNIA; Start 04/19/18 at 18: 45 Insulin Glargine (Lantus) 20 units QHS SQ ; Start 04/19/18 at 21:00 Ferrous Sulfate (Feosol) 325 mg DAILYWBKFT PO ; Start 04/20/18 at 08:00 Pantoprazole Sodium (Protonix) 40 mg DAILYAC PO ; Start 04/20/18 at 07:30 Simvastatin (Zocor) 20 mg HS PO ; Start 04/19/18 at 21:00 Sucralfate (Carafate) 1 gm QIDACHS PO ; Start 04/19/18 at 21:00 Docusate Sodium (Colace) 100 mg DAILY PO ; Start 04/19/18 at 20:00 Polyethylene Glycol (miraLAX PACKET) 17 gm 1X ONCE PO ; Start 04/19/18 at 19:30 ; Stop 04/19/18 at 19:31; Status DC Polyethylene Glycol (miraLAX PACKET) 17 gm DAILY PO ; Start 04/20/18 at 09:00 Ceftriaxone Sodium (Rocephin) 1 gm Q24H IVP ; Start 04/19/18 at 20:00 Active Scripts Active Levemir Flextouch (Insulin Detemir) 100 Unit/1 Ml Insuln.pen 20 Unit SQ QHS 30 Days Reported Metformin Hcl 1,000 Mg Tablet 1,000 Mg PO BIDWMEALS Ferralet 90 Dual-Iron Tablet (Iron, Carb & Gluc/Fa/B12/C/Dss) 1 Each Tablet 1 Tab PO DAILY Reglan (Metoclopramide Hcl) 10 Mg Tablet 1 Tab PO TID PRN Sucralfate 1 Gm Tablet 1 Tab PO QIDACHS Metoprolol Succinate ( Xl ) (Metoprolol Succinate) 100 Mg Tab.er.24h 1 Tab PO DAILY Simvastatin 20 Mg Tablet 1 Tab PO QHS [place] 5-325 Tablet (Acetaminophen/Hydrocodone Bitart) 1 Each Tablet 1 Tab PO BID PRN Levothyroxine Sodium 100 Mcg Tablet 1 Tab PO DAILY05 Docusate Sodium 100 Mg Capsule 1 Cap PO DAILY Trazodone Hcl 50 Mg Tablet 50 Mg PO QHS Omeprazole 40 Mg Capsule.dr 1 Cap PO DAILY06 Ibuprofen 800 Mg Tablet 800 Mg PO TID PRN Losartan-Hctz 100-12.5 Mg Tab (Losartan/Hydrochlorothiazide) 1 Each Tablet 1 Tab PO DAILY Ambien (Zolpidem Tartrate) 5 Mg Tablet 5 Mg PO HS PRN Protonix (Pantoprazole Sodium) 20 Mg Tablet.dr 40 Mg PO DAILYAC Amlodipine Besylate 10 Mg Tablet 10 Mg PO BID Allergies Allergies: Coded Allergies: Sulfa (Sulfonamide Antibiotics) (Verified Allergy, Intermediate, 04/19/18) prochlorperazine (Verified Adverse Reaction, Intermediate, DIZZY, 04/19/18) ROS General: YES: Fatigue, Malaise, Appetite; No: Chills, Night Sweats, Other PSYCHOLOGICAL ROS: YES: Sleep disturbances; No: Anxiety, Behavioral Disorder, Concentration difficultie, Decreased libido , Depression, Disorientation, Hallucinations, Hostility, Irritablity, Memory difficulties, Mood Swings, Obsessive thoughts, Other Eyes: No Blurry vision, No Decreased vision, No Double vision, No Dry eyes, No Excessive tearing, No Eye Pain, No Itchy Eyes, No Loss of vision, No Photophobia , No Scotomata, No Uses contacts, No Uses glasses, No Other HEENT: YES: Heacaches, Other; No: Visual Changes, Hearing change, Nasal congestion, Nasal discharge, Oral lesions, Sinus pain, Sore Throat, Epistaxis, Sneezing, Snoring, Tinnitus, Vertigo, Vocal changes Respiratory: No: Cough, Hemoptysis, Orthopnea, Pleuritic Pain, Shortness of breath, SOB with excertion, Sputum Changes, Stridor, Tachypnea, Wheezing, Other Cardiovascular: No Chest Pain, No Palpitations, No Orthopnea, No Paroxysmal Noc. Dyspnea, No Edema, No Lt Headedness, No Other Gastrointestinal: Yes Nausea, Yes Abdominal Pain, Yes Constipation Genitourinary: No Dysuria, No Frequency, No Incontinence, No Hematuria, No Retention, No Discharge, No Urgency, No Pain, No Flank Pain, No Other, No , No , No , No , No , No , No Musculoskeletal: No Gait Disturbance, No Joint Pain, No Joint Stiffness, No Joint Swelling, No Muscle Pain, No Muscular Weakness, No Pain In:, No Swelling In:, No Other Neurological: No Behavorial Changes, No Bowel/Bladder ControlChng, No Confusion , No Dizziness, No Gait Disturbance, No Headaches, No Impaired Coord/balance, No Memory Loss, No Numbness/Tingling, No Seizures, No Speech Problems, No Tremors, No Visual Changes, No Weakness, No Other Skin: Yes Dry Skin Physical Exam General: Alert, Oriented X3, Cooperative, mild distress HEENT: Atraumatic, PERRLA, EOMI Lungs: Clear to auscultation, Normal air movement Heart: S1S2, no gallops, no murmurs Extremities: No cyanosis, No edema, Normal pulses Skin: No rashes, No breakdown, No significant lesion Neuro: Normal speech, Normal tone, Sensation intact, Cranial nerves 3-12 NL Psych/Mental Status: Mental status NL, Mood NL Vitals Vitals Vital Signs Date Time Temp Pulse Resp B/P (MAP) Pulse Ox O2 Delivery O2 Flow Rate FiO2 04/19/18 18:22 Room Air 04/19/18 16:58 99.2 57 18 124/67 (86) 100 99.2 Labs Labs Laboratory Tests Test 04/19/18 11:40 04/19/18 12:20 04/19/18 17:00 Urine Collection Type Unknown Urine Color Yellow Urine Clarity Cloudy Urine pH 5.0 Urine Specific [place] 1.020 Urine Protein Negative mg/dL (NEG-TRACE) Urine Glucose (UA) Negative mg/dL (NEG) Urine Ketones (Stick) Trace mg/dL (NEG) Urine Blood Trace (NEG) Urine Nitrite Negative (NEG) Urine Bilirubin Small (NEG) Urine Urobilinogen Dipstick 0.2 mg/dL (0.2 mg/dL) Urine Leukocyte Esterase Large (NEG) Urine RBC Occ /HPF (0-2) Urine WBC 11-20 /HPF (0-4) Urine Squamous Epithelial Cells Many /LPF Urine Bacteria Many /HPF (0-FEW) Urine Mucus Mod /LPF White Blood Count 6.7 x10^3/uL (4.0-11.0) Red Blood Count 3.63 x10^6/uL (3.50-5.40) Hemoglobin 11.2 g/dL (12.0-15.5) Hematocrit 33.2 % (36.0-47.0) Mean Corpuscular Volume 91 fL (79-100) Mean Corpuscular Hemoglobin 31 pg (25-35) Mean Corpuscular Hemoglobin Concent 34 g/dL (31-37) Red Cell Distribution Width 14.6 % (11.5-14.5) Platelet Count 230 x10^3/uL (140-400) Neutrophils (%) (Auto) 58 % (31-73) Lymphocytes (%) (Auto) 32 % (24-48) Monocytes (%) (Auto) 9 % (0-9) Eosinophils (%) (Auto) 1 % (0-3) Basophils (%) (Auto) 1 % (0-3) Neutrophils # (Auto) 3.9 x10^3uL (1.8-7.7) Lymphocytes # (Auto) 2.1 x10^3/uL (1.0-4.8) Monocytes # (Auto) 0.6 x10^3/uL (0.0-1.1) Eosinophils # (Auto) 0.0 x10^3/uL (0.0-0.7) Basophils # (Auto) 0.1 x10^3/uL (0.0-0.2) Sodium Level 132 mmol/L (136-145) Potassium Level 5.2 mmol/L (3.5-5.1) Chloride Level 97 mmol/L (98-107) Carbon Dioxide Level 20 mmol/L (21-32) Anion Gap 15 (6-14) Blood Urea Nitrogen 33 mg/dL (7-20) Creatinine 3.4 mg/dL (0.6-1.0) Estimated GFR (Cockcroft-Gault) 16.2 BUN/Creatinine Ratio 10 (6-20) Glucose Level 155 mg/dL (70-99) Calcium Level 10.3 mg/dL (8.5-10.1) Total Bilirubin 0.4 mg/dL (0.2-1.0) Aspartate Amino Transf (AST/SGOT) 18 U/L (15-37) Alanine Aminotransferase (ALT/SGPT) 11 U/L (14-59) Alkaline Phosphatase 51 U/L (46-116) Total Protein 7.9 g/dL (6.4-8.2) Albumin 3.9 g/dL (3.4-5.0) Albumin/Globulin Ratio 1.0 (1.0-1.7) Lipase 142 U/L (73-393) Glucose (Fingerstick) 75 mg/dL (70-99) Laboratory Tests Test 04/19/18 11:40 04/19/18 12:20 04/19/18 17:00 Urine Collection Type Unknown Urine Color Yellow Urine Clarity Cloudy Urine pH 5.0 Urine Specific [place] 1.020 Urine Protein Negative mg/dL (NEG-TRACE) Urine Glucose (UA) Negative mg/dL (NEG) Urine Ketones (Stick) Trace mg/dL (NEG) Urine Blood Trace (NEG) Urine Nitrite Negative (NEG) Urine Bilirubin Small (NEG) Urine Urobilinogen Dipstick 0.2 mg/dL (0.2 mg/dL) Urine Leukocyte Esterase Large (NEG) Urine RBC Occ /HPF (0-2) Urine WBC 11-20 /HPF (0-4) Urine Squamous Epithelial Cells Many /LPF Urine Bacteria Many /HPF (0-FEW) Urine Mucus Mod /LPF White Blood Count 6.7 x10^3/uL (4.0-11.0) Red Blood Count 3.63 x10^6/uL (3.50-5.40) Hemoglobin 11.2 g/dL (12.0-15.5) Hematocrit 33.2 % (36.0-47.0) Mean Corpuscular Volume 91 fL (79-100) Mean Corpuscular Hemoglobin 31 pg (25-35) Mean Corpuscular Hemoglobin Concent 34 g/dL (31-37) Red Cell Distribution Width 14.6 % (11.5-14.5) Platelet Count 230 x10^3/uL (140-400) Neutrophils (%) (Auto) 58 % (31-73) Lymphocytes (%) (Auto) 32 % (24-48) Monocytes (%) (Auto) 9 % (0-9) Eosinophils (%) (Auto) 1 % (0-3) Basophils (%) (Auto) 1 % (0-3) Neutrophils # (Auto) 3.9 x10^3uL (1.8-7.7) Lymphocytes # (Auto) 2.1 x10^3/uL (1.0-4.8) Monocytes # (Auto) 0.6 x10^3/uL (0.0-1.1) Eosinophils # (Auto) 0.0 x10^3/uL (0.0-0.7) Basophils # (Auto) 0.1 x10^3/uL (0.0-0.2) Sodium Level 132 mmol/L (136-145) Potassium Level 5.2 mmol/L (3.5-5.1) Chloride Level 97 mmol/L (98-107) Carbon Dioxide Level 20 mmol/L (21-32) Anion Gap 15 (6-14) Blood Urea Nitrogen 33 mg/dL (7-20) Creatinine 3.4 mg/dL (0.6-1.0) Estimated GFR (Cockcroft-Gault) 16.2 BUN/Creatinine Ratio 10 (6-20) Glucose Level 155 mg/dL (70-99) Calcium Level 10.3 mg/dL (8.5-10.1) Total Bilirubin 0.4 mg/dL (0.2-1.0) Aspartate Amino Transf (AST/SGOT) 18 U/L (15-37) Alanine Aminotransferase (ALT/SGPT) 11 U/L (14-59) Alkaline Phosphatase 51 U/L (46-116) Total Protein 7.9 g/dL (6.4-8.2) Albumin 3.9 g/dL (3.4-5.0) Albumin/Globulin Ratio 1.0 (1.0-1.7) Lipase 142 U/L (73-393) Glucose (Fingerstick) 75 mg/dL (70-99) VTE Prophylaxis Ordered VTE Prophylaxis Devices: No VTE Pharmacological Prophylaxi: Yes Assessment/Plan Assessment/Plan nausea and vomitnig and abdominal pain, has gastroparesis, consult GI, try reglan as at home, she feels it doesnt work no stool 4 days, constipation may exacerbate, colace and miralax, hypercalcemia, unsure if she is overusing tums headache, frontal and severe, consult neuro. acute renal failure, IV fluid, us, ua, renal consult likely ATN, hyperkalemia, admit LINDA CENTENO MD Apr 19, 2018 19:41
[2018-04-19] MEDS: DOCUSATE SODIUM 100 MG CAPSULE. PO SCH (19:44)
[2018-04-19] MEDS: cefTRIAXone IV Push 1 GM VIAL. IVP SCH (19:45)
[2018-04-19] MEDS: SIMVASTATIN 20 MG TABLET PO SCH (20:07)
[2018-04-19] MEDS: traZODone 50 MG TABLET. PO SCH (20:07)
[2018-04-19] MEDS: SUCRALFATE 1 GM TABLET. PO SCH (20:07)
[2018-04-19] MEDS: amLODIPine BESYLATE 10 MG TABLET PO SCH (20:09)
[2018-04-19] MEDS: ZOLPIDEM 5 MG TABLET. PO PRN (21:30)
[2018-04-19] MEDS: INSULIN GLARGINE 300 UNITS/3 ML INSULN.PEN. SQ SCH (21:41)
[2018-04-19] MEDS: HEPARIN for SUB-Q USE 5,000 UNIT/ML VIAL. SQ SCH (21:42)
[2018-04-19 23:00] VITALS: BP 124/73
[2018-04-20] MEDS: MORPHINE SULFATE 4 MG/ML VIAL. IV PRN ×3 (02:28→20:40)
[2018-04-20] MEDS: ONDANSETRON PF 4 MG/2 ML VIAL. IV PRN ×3 (02:28→23:48)
[2018-04-20 03:00] VITALS: BP 145/76
[2018-04-20] MEDS: IV NORMAL SALINE 1000ML BAG 1,000 ML IV SCH (04:41)
[2018-04-20] MEDS: LEVOTHYROXINE 100 MCG TABLET PO SCH (04:45)
[2018-04-20] MEDS: HYDROcodone/APAP 5/325MG 1 TAB TABLET PO PRN ×2 (05:43→17:19)
[2018-04-20 05:45] LABS: BASO # 0.1 x10^3/uL (0.0-0.2); BASO % 1 % (0-3); EOS % 0 % (0-3); HEMATOCRIT 31.6 % (36.0-47.0); HEMOGLOBIN 10.6 g/dL (12.0-15.5); LYMPH # 3.3 x10^3/uL (1.0-4.8); LYMPH % 39 % (24-48); MEAN CORPUSCULAR HEMOGLOBIN 31 pg (25-35); MEAN CORPUSCULAR HGB CONC 34 g/dL (31-37); MEAN CORPUSCULAR VOLUME 91 fL (79-100); MONO # 0.9 x10^3/uL (0.0-1.1); MONO % 10 % (0-9); NEUT # 4.3 x10^3uL (1.8-7.7); NEUT % 50 % (31-73); PLATELET COUNT 229 x10^3/uL (140-400); RED BLOOD COUNT 3.48 x10^6/uL (3.50-5.40); RED CELL DISTRIBUTION WIDTH 14.8 % (11.5-14.5); WHITE BLOOD COUNT 8.6 x10^3/uL (4.0-11.0)
[2018-04-20 06:32] LABS: ALBUMIN 3.9 g/dL (3.4-5.0); ALBUMIN/GLOBULIN RATIO 1.1 (1.0-1.7); CALCIUM 9.7 mg/dL (8.5-10.1); CREATININE 2.2 mg/dL (0.6-1.0); GFR 26.7; POTASSIUM 4.7 mmol/L (3.5-5.1); TOTAL BILIRUBIN 0.3 mg/dL (0.2-1.0); TOTAL PROTEIN 7.6 g/dL (6.4-8.2)
[2018-04-20 07:00] VITALS: BP 139/85
[2018-04-20] MEDS ORDERED: PANTOPRAZOLE 40 MG TABLET.DR. PO SCH (07:30)
[2018-04-20] MEDS: SUCRALFATE 1 GM TABLET. PO SCH ×4 (07:30→20:44)
[2018-04-20] MEDS: METOPROLOL SUCC 24HR ER 100 MG TAB.ER.24H. PO SCH (09:00)
[2018-04-20] MEDS ORDERED: DOCUSATE SODIUM 100 MG CAPSULE. PO SCH (09:00)
--- NOTE | 2018-04-20 09:45 | PDOC2 ---
GI CONSULT Reason For Consult: Gastroparesis HPI: HPI: 72 y/o female who we've seen in the past. Tells me has been ill for a week w/ n /v. Abd pain seems likely, can't remember when last stooled. Not able to tolerate anything by mouth. Has regular breakfast tray in front of her this morning, retching. Obviously not feeling well, history difficult - additional h /o some mild cognitive impairment. RN says can't give pills due to this. H/o gastroparesis and GERD, recurrent issues w/ decreased appetite and n/v and abd pain. Has tried Reglan and e-mycin in the past. Also had J tube placement (and then dislodgement). She can't remember current home medications. Here, she has iron, pantoprazole, Carafate, and PRN Reglan ordered. Past 'scopes w/ Dr. Екатерина Momin in 2008 showed normal gastric biopsies, hyperplastic polyp, and diverticulosis. She also thinks she had 'scopes w/ Dr. Novoa since that time. Last GES in 11/2016 w/ moderate delay (T1/2 122 min). S/p cholecystectomy. Elevated lipase in the past w/ normal CA19-9. I don't believe any pancreas abnormalities on imaging - has had 15 CTs since 06/2013. S/p cholecystectomy. PMH: PMH: GERD, gastroparesis, diverticulosis, HTN, PE, DVT, anxiety, OA, DM, nephrolithiasis, hypothyroidism, cognitive impairment, UTI cholecystectomy, knee replacement, hysterectomy, thyroidectomy, J tube placement /dislodgement FH: Family History: CAD, DM, Hypertension Social History: Smoke: No ALCOHOL: none Drugs: None ROS: Difficult to obtain, refer to HPI. Vitals: Vitals: Vital Signs Date Time Temp Pulse Resp B/P (MAP) Pulse Ox O2 Delivery O2 Flow Rate FiO2 04/20/18 07:00 98.9 75 17 139/85 (103) 100 Room Air 98.9 Labs: Labs: Laboratory Tests Test 04/19/18 11:40 04/19/18 12:20 04/19/18 17:00 04/19/18 20:28 Urine Collection Type Unknown Urine Color Yellow Urine Clarity Cloudy Urine pH 5.0 Urine Specific [place] 1.020 Urine Protein Negative mg/dL (NEG-TRACE) Urine Glucose (UA) Negative mg/dL (NEG) Urine Ketones (Stick) Trace mg/dL (NEG) Urine Blood Trace (NEG) Urine Nitrite Negative (NEG) Urine Bilirubin Small (NEG) Urine Urobilinogen Dipstick 0.2 mg/dL (0.2 mg/dL) Urine Leukocyte Esterase Large (NEG) Urine RBC Occ /HPF (0-2) Urine WBC 11-20 /HPF (0-4) Urine Squamous Epithelial Cells Many /LPF Urine Bacteria Many /HPF (0-FEW) Urine Mucus Mod /LPF White Blood Count 6.7 x10^3/uL (4.0-11.0) Red Blood Count 3.63 x10^6/uL (3.50-5.40) Hemoglobin 11.2 g/dL (12.0-15.5) Hematocrit 33.2 % (36.0-47.0) Mean Corpuscular Volume 91 fL (79-100) Mean Corpuscular Hemoglobin 31 pg (25-35) Mean Corpuscular Hemoglobin Concent 34 g/dL (31-37) Red Cell Distribution Width 14.6 % (11.5-14.5) Platelet Count 230 x10^3/uL (140-400) Neutrophils (%) (Auto) 58 % (31-73) Lymphocytes (%) (Auto) 32 % (24-48) Monocytes (%) (Auto) 9 % (0-9) Eosinophils (%) (Auto) 1 % (0-3) Basophils (%) (Auto) 1 % (0-3) Neutrophils # (Auto) 3.9 x10^3uL (1.8-7.7) Lymphocytes # (Auto) 2.1 x10^3/uL (1.0-4.8) Monocytes # (Auto) 0.6 x10^3/uL (0.0-1.1) Eosinophils # (Auto) 0.0 x10^3/uL (0.0-0.7) Basophils # (Auto) 0.1 x10^3/uL (0.0-0.2) Sodium Level 132 mmol/L (136-145) Potassium Level 5.2 mmol/L (3.5-5.1) Chloride Level 97 mmol/L (98-107) Carbon Dioxide Level 20 mmol/L (21-32) Anion Gap 15 (6-14) Blood Urea Nitrogen 33 mg/dL (7-20) Creatinine 3.4 mg/dL (0.6-1.0) Estimated GFR (Cockcroft-Gault) 16.2 BUN/Creatinine Ratio 10 (6-20) Glucose Level 155 mg/dL (70-99) Calcium Level 10.3 mg/dL (8.5-10.1) Total Bilirubin 0.4 mg/dL (0.2-1.0) Aspartate Amino Transf (AST/SGOT) 18 U/L (15-37) Alanine Aminotransferase (ALT/SGPT) 11 U/L (14-59) Alkaline Phosphatase 51 U/L (46-116) Total Protein 7.9 g/dL (6.4-8.2) Albumin 3.9 g/dL (3.4-5.0) Albumin/Globulin Ratio 1.0 (1.0-1.7) Lipase 142 U/L (73-393) Glucose (Fingerstick) 75 mg/dL (70-99) 93 mg/dL (70-99) Test 04/20/18 05:10 04/20/18 07:34 White Blood Count 8.6 x10^3/uL (4.0-11.0) Red Blood Count 3.48 x10^6/uL (3.50-5.40) Hemoglobin 10.6 g/dL (12.0-15.5) Hematocrit 31.6 % (36.0-47.0) Mean Corpuscular Volume 91 fL (79-100) Mean Corpuscular Hemoglobin 31 pg (25-35) Mean Corpuscular Hemoglobin Concent 34 g/dL (31-37) Red Cell Distribution Width 14.8 % (11.5-14.5) Platelet Count 229 x10^3/uL (140-400) Neutrophils (%) (Auto) 50 % (31-73) Lymphocytes (%) (Auto) 39 % (24-48) Monocytes (%) (Auto) 10 % (0-9) Eosinophils (%) (Auto) 0 % (0-3) Basophils (%) (Auto) 1 % (0-3) Neutrophils # (Auto) 4.3 x10^3uL (1.8-7.7) Lymphocytes # (Auto) 3.3 x10^3/uL (1.0-4.8) Monocytes # (Auto) 0.9 x10^3/uL (0.0-1.1) Eosinophils # (Auto) 0.0 x10^3/uL (0.0-0.7) Basophils # (Auto) 0.1 x10^3/uL (0.0-0.2) Sodium Level 137 mmol/L (136-145) Potassium Level 4.7 mmol/L (3.5-5.1) Chloride Level 101 mmol/L (98-107) Carbon Dioxide Level 20 mmol/L (21-32) Anion Gap 16 (6-14) Blood Urea Nitrogen 26 mg/dL (7-20) Creatinine 2.2 mg/dL (0.6-1.0) Estimated GFR (Cockcroft-Gault) 26.7 BUN/Creatinine Ratio 12 (6-20) Glucose Level 135 mg/dL (70-99) Calcium Level 9.7 mg/dL (8.5-10.1) Ionized Calcium 1.27 mmol/L (1.13-1.32) Total Bilirubin 0.3 mg/dL (0.2-1.0) Aspartate Amino Transf (AST/SGOT) 17 U/L (15-37) Alanine Aminotransferase (ALT/SGPT) 12 U/L (14-59) Alkaline Phosphatase 47 U/L (46-116) Total Protein 7.6 g/dL (6.4-8.2) Albumin 3.9 g/dL (3.4-5.0) Albumin/Globulin Ratio 1.1 (1.0-1.7) Glucose (Fingerstick) 146 mg/dL (70-99) Allergies: Coded Allergies: Sulfa (Sulfonamide Antibiotics) (Verified Allergy, Intermediate, 04/19/18) prochlorperazine (Verified Adverse Reaction, Intermediate, DIZZY, 04/19/18) Medications: Current Medications Medications (Trade) Dose Ordered Sig/Alo Route PRN Reason Start Time Stop Time Status Last Admin Dose Admin Ondansetron HCl (Zofran) 8 mg 1X ONCE IV 04/19/18 12:30 04/19/18 12:31 DC 04/19/18 12:30 Morphine Sulfate (Morphine Sulfate) 4 mg 1X ONCE IV 04/19/18 12:30 04/19/18 12:31 DC 04/19/18 12:30 Sodium Chloride 1,000 ml @ 1,000 mls/hr 1X ONCE IV 04/19/18 12:30 04/19/18 13:29 DC 04/19/18 12:30 Morphine Sulfate (Morphine Sulfate) 4 mg 1X ONCE IV 04/19/18 15:15 04/19/18 15:16 DC 04/19/18 15:37 Ondansetron HCl (Zofran) 4 mg PRN Q8HRS PRN IV NAUSEA/VOMITING 04/19/18 15:15 04/20/18 15:14 04/20/18 02:28 Morphine Sulfate (Morphine Sulfate) 2 mg PRN Q2HR PRN IV PAIN 04/19/18 15:15 04/20/18 15:14 04/20/18 02:28 Sodium Chloride 1,000 ml @ 75 mls/hr [id number] IV 04/19/18 15:06 04/20/18 15:05 04/20/18 04:41 Amlodipine Besylate (Norvasc) 10 mg BID PO 04/19/18 21:00 04/19/18 20:09 Acetaminophen/ Hydrocodone Bitart (Lortab 5/325) 1 tab PRN BID PRN PO PAIN 04/19/18 18:45 04/20/18 05:43 Levothyroxine Sodium (Synthroid) 100 mcg DAILY05 PO 04/20/18 05:00 04/20/18 04:45 Trazodone HCl (Desyrel) 50 mg QHS PO 04/19/18 21:00 04/19/18 20:07 Zolpidem Tartrate (Ambien) 5 mg PRN QHS PRN PO INSOMNIA 04/19/18 18:45 04/19/18 21:30 Insulin Glargine (Lantus) 20 units QHS SQ 04/19/18 21:00 04/19/18 21:41 Simvastatin (Zocor) 20 mg HS PO 04/19/18 21:00 04/19/18 20:07 Sucralfate (Carafate) 1 gm QIDACHS PO 04/19/18 21:00 04/19/18 20:07 Docusate Sodium (Colace) 100 mg DAILY PO 04/19/18 20:00 04/19/18 19:44 Polyethylene Glycol (miraLAX PACKET) 17 gm 1X ONCE PO 04/19/18 19:30 04/19/18 19:31 DC 04/19/18 19:44 Ceftriaxone Sodium (Rocephin) 1 gm Q24H IVP 04/19/18 20:00 04/19/18 19:45 Heparin Sodium (Porcine) (Heparin Sodium) 5,000 unit BID SQ 04/19/18 21:00 04/19/18 21:42 Imaging: Imaging: CT A/P IMPRESSION: 1. Hypodense renal lesions, the larger of which are likely cysts and were seen previously. 2. Colonic diverticulosis without evidence of acute colitis. 3. Severe thoracolumbar spondylosis with stenosis. Head CT IMPRESSION: No evidence of acute intracranial hemorrhage or mass effect. Renal US IMPRESSION: 1. Limited exam due to patient body habitus, bowel gas and motion. 2. Echogenic renal parenchyma. This can be seen with medical renal disease. 3. Bilateral renal cysts. 4. Post void bladder volume of 151 cc. PE: GEN: ill - retching HEENT: Atraumatic, PERRL LUNGS: CTAB HEART: RRR, ABD: doesn't seem uncomfortable, soft - exam limited due to retching EXTREMITY: No edema SKIN: No rashes, no jaundice NEURO/PSYCH: A & O 3 A/P: A/P: Recurrent n/v - this time began ~1 week ago H/o GERD and gastroparesis Headaches, PAM/CKD, chronic anemia CRC screen - UTD, per HPI Diverticulosis S/p cholecystectomy, h/o J tube placement and dislodgement H/o elevated lipase - not this time Mild cognitive impairment - history is usually a bit difficult -- Retching when I saw - change to scheduled IV Reglan and IV PPI, back off on diet. Advance/change to PO meds as able - would use Reglan suspension and not pills. HARLEY GOEL Apr 20, 2018 09:45
--- NOTE | 2018-04-20 10:32 | RAD ---
EXAM: Renal sonogram. HISTORY: Renal failure. TECHNIQUE: Sonographic imaging of the kidneys and bladder was performed. COMPARISON: None. FINDINGS: The exam is limited due to patient body habitus, bowel gas and patient motion. The right kidney measures 11.7 cm [id number] and the left kidney measures 9.0 cm [id number]. There is echogenic renal parenchyma. There are bilateral renal cysts. The prevoid bladder volume is 300 cc. The post void bladder volume is 151 cc. IMPRESSION: 1. Limited exam due to patient body habitus, bowel gas and motion. 2. Echogenic renal parenchyma. This can be seen with medical renal disease. 3. Bilateral renal cysts. 4. Post void bladder volume of 151 cc. Electronically signed by: Alexsandra Bernard MD (04/20/2018 10:30 AM) [id number]
[2018-04-20] MEDS ORDERED: PROCHLORPERAZINE 10 MG/2 ML VIAL. IV PRN (10:45)
[2018-04-20 11:00] VITALS: BP 133/66
[2018-04-20] MEDS: DOCUSATE SODIUM 100 MG CAPSULE. PO SCH (11:18)
[2018-04-20] MEDS: METOCLOPRAMIDE HCL 10 MG/2 ML VIAL. IV SCH ×3 (11:18→20:43)
[2018-04-20] MEDS: POLYETHYLENE GLYCOL 3350 17 GM PACKET. PO SCH (11:18)
[2018-04-20] MEDS: FERROUS SULFATE 325 MG TABLET. PO SCH (11:20)
[2018-04-20] MEDS: amLODIPine BESYLATE 10 MG TABLET PO SCH ×2 (11:20→20:44)
[2018-04-20] MEDS: HEPARIN for SUB-Q USE 5,000 UNIT/ML VIAL. SQ SCH ×2 (11:30→20:45)
--- NOTE | 2018-04-20 12:07 | PDOC ---
PROGRESS NOTES Chief Complaint Chief Complaint Recurrent n/v - this time began ~1 week ago H/o GERD and gastroparesis Headaches, PAM/CKD, chronic anemia CRC screen - UTD, per HPI Diverticulosis S/p cholecystectomy, h/o J tube placement and dislodgement H/o elevated lipase - not this time Mild cognitive impairment - history is usually a bit difficult History of Present Illness History of Present Illness Retching today witnessed by GI hence backed down to liquid diet I am familiar with her case, known gastroparesis, GERD, diabetes Potassium is okay, creatinine down to 2.2 from 3.4 She is very weak Came from home She has a headache BS so far ok Plan: trial of Celebrex or NSAID for the headache Liquid diet Supportive nausea meds Add PTOT-might benefit from few weeks rehabilitation? Pending PT recommendations Vitals Vitals Vital Signs Date Time Temp Pulse Resp B/P (MAP) Pulse Ox O2 Delivery O2 Flow Rate FiO2 04/20/18 11:50 100 Room Air 04/20/18 11:20 61 133/66 04/20/18 11:00 98.3 17 98.3 Physical Exam General: Alert, Oriented X3, Cooperative, mild distress Lungs: Clear, Other Extremities: No cyanosis, No edema, Normal pulses Skin: No rashes, No breakdown, No significant lesion Labs LABS Laboratory Tests Test 04/19/18 12:20 04/19/18 17:00 04/19/18 20:28 04/20/18 05:10 White Blood Count 6.7 x10^3/uL (4.0-11.0) 8.6 x10^3/uL (4.0-11.0) Red Blood Count 3.63 x10^6/uL (3.50-5.40) 3.48 x10^6/uL (3.50-5.40) Hemoglobin 11.2 g/dL (12.0-15.5) 10.6 g/dL (12.0-15.5) Hematocrit 33.2 % (36.0-47.0) 31.6 % (36.0-47.0) Mean Corpuscular Volume 91 fL (79-100) 91 fL (79-100) Mean Corpuscular Hemoglobin 31 pg (25-35) 31 pg (25-35) Mean Corpuscular Hemoglobin Concent 34 g/dL (31-37) 34 g/dL (31-37) Red Cell Distribution Width 14.6 % (11.5-14.5) 14.8 % (11.5-14.5) Platelet Count 230 x10^3/uL (140-400) 229 x10^3/uL (140-400) Neutrophils (%) (Auto) 58 % (31-73) 50 % (31-73) Lymphocytes (%) (Auto) 32 % (24-48) 39 % (24-48) Monocytes (%) (Auto) 9 % (0-9) 10 % (0-9) Eosinophils (%) (Auto) 1 % (0-3) 0 % (0-3) Basophils (%) (Auto) 1 % (0-3) 1 % (0-3) Neutrophils # (Auto) 3.9 x10^3uL (1.8-7.7) 4.3 x10^3uL (1.8-7.7) Lymphocytes # (Auto) 2.1 x10^3/uL (1.0-4.8) 3.3 x10^3/uL (1.0-4.8) Monocytes # (Auto) 0.6 x10^3/uL (0.0-1.1) 0.9 x10^3/uL (0.0-1.1) Eosinophils # (Auto) 0.0 x10^3/uL (0.0-0.7) 0.0 x10^3/uL (0.0-0.7) Basophils # (Auto) 0.1 x10^3/uL (0.0-0.2) 0.1 x10^3/uL (0.0-0.2) Sodium Level 132 mmol/L (136-145) 137 mmol/L (136-145) Potassium Level 5.2 mmol/L (3.5-5.1) 4.7 mmol/L (3.5-5.1) Chloride Level 97 mmol/L (98-107) 101 mmol/L (98-107) Carbon Dioxide Level 20 mmol/L (21-32) 20 mmol/L (21-32) Anion Gap 15 (6-14) 16 (6-14) Blood Urea Nitrogen 33 mg/dL (7-20) 26 mg/dL (7-20) Creatinine 3.4 mg/dL (0.6-1.0) 2.2 mg/dL (0.6-1.0) Estimated GFR (Cockcroft-Gault) 16.2 26.7 BUN/Creatinine Ratio 10 (6-20) 12 (6-20) Glucose Level 155 mg/dL (70-99) 135 mg/dL (70-99) Calcium Level 10.3 mg/dL (8.5-10.1) 9.7 mg/dL (8.5-10.1) Total Bilirubin 0.4 mg/dL (0.2-1.0) 0.3 mg/dL (0.2-1.0) Aspartate Amino Transf (AST/SGOT) 18 U/L (15-37) 17 U/L (15-37) Alanine Aminotransferase (ALT/SGPT) 11 U/L (14-59) 12 U/L (14-59) Alkaline Phosphatase 51 U/L (46-116) 47 U/L (46-116) Total Protein 7.9 g/dL (6.4-8.2) 7.6 g/dL (6.4-8.2) Albumin 3.9 g/dL (3.4-5.0) 3.9 g/dL (3.4-5.0) Albumin/Globulin Ratio 1.0 (1.0-1.7) 1.1 (1.0-1.7) Lipase 142 U/L (73-393) Glucose (Fingerstick) 75 mg/dL (70-99) 93 mg/dL (70-99) Ionized Calcium 1.27 mmol/L (1.13-1.32) Test 04/20/18 07:34 04/20/18 11:35 Glucose (Fingerstick) 146 mg/dL (70-99) 149 mg/dL (70-99) Review of Systems Review of Systems Retching, headache, weak, nauseated Assessment and Plan Assessmemt and Plan Problems Medical Problems: (1) Gastroparesis Status: Acute (2) Headache Status: Acute (3) Renal failure Status: Acute Comment Review of Relevant I have reviewed the following items mert (where applicable) has been applied. Labs Laboratory Tests Test 04/19/18 11:40 04/19/18 12:20 04/19/18 17:00 04/19/18 20:28 Urine Collection Type Unknown Urine Color Yellow Urine Clarity Cloudy Urine pH 5.0 Urine Specific Moody 1.020 Urine Protein Negative mg/dL (NEG-TRACE) Urine Glucose (UA) Negative mg/dL (NEG) Urine Ketones (Stick) Trace mg/dL (NEG) Urine Blood Trace (NEG) Urine Nitrite Negative (NEG) Urine Bilirubin Small (NEG) Urine Urobilinogen Dipstick 0.2 mg/dL (0.2 mg/dL) Urine Leukocyte Esterase Large (NEG) Urine RBC Occ /HPF (0-2) Urine WBC 11-20 /HPF (0-4) Urine Squamous Epithelial Cells Many /LPF Urine Bacteria Many /HPF (0-FEW) Urine Mucus Mod /LPF White Blood Count 6.7 x10^3/uL (4.0-11.0) Red Blood Count 3.63 x10^6/uL (3.50-5.40) Hemoglobin 11.2 g/dL (12.0-15.5) Hematocrit 33.2 % (36.0-47.0) Mean Corpuscular Volume 91 fL (79-100) Mean Corpuscular Hemoglobin 31 pg (25-35) Mean Corpuscular Hemoglobin Concent 34 g/dL (31-37) Red Cell Distribution Width 14.6 % (11.5-14.5) Platelet Count 230 x10^3/uL (140-400) Neutrophils (%) (Auto) 58 % (31-73) Lymphocytes (%) (Auto) 32 % (24-48) Monocytes (%) (Auto) 9 % (0-9) Eosinophils (%) (Auto) 1 % (0-3) Basophils (%) (Auto) 1 % (0-3) Neutrophils # (Auto) 3.9 x10^3uL (1.8-7.7) Lymphocytes # (Auto) 2.1 x10^3/uL (1.0-4.8) Monocytes # (Auto) 0.6 x10^3/uL (0.0-1.1) Eosinophils # (Auto) 0.0 x10^3/uL (0.0-0.7) Basophils # (Auto) 0.1 x10^3/uL (0.0-0.2) Sodium Level 132 mmol/L (136-145) Potassium Level 5.2 mmol/L (3.5-5.1) Chloride Level 97 mmol/L (98-107) Carbon Dioxide Level 20 mmol/L (21-32) Anion Gap 15 (6-14) Blood Urea Nitrogen 33 mg/dL (7-20) Creatinine 3.4 mg/dL (0.6-1.0) Estimated GFR (Cockcroft-Gault) 16.2 BUN/Creatinine Ratio 10 (6-20) Glucose Level 155 mg/dL (70-99) Calcium Level 10.3 mg/dL (8.5-10.1) Total Bilirubin 0.4 mg/dL (0.2-1.0) Aspartate Amino Transf (AST/SGOT) 18 U/L (15-37) Alanine Aminotransferase (ALT/SGPT) 11 U/L (14-59) Alkaline Phosphatase 51 U/L (46-116) Total Protein 7.9 g/dL (6.4-8.2) Albumin 3.9 g/dL (3.4-5.0) Albumin/Globulin Ratio 1.0 (1.0-1.7) Lipase 142 U/L (73-393) Glucose (Fingerstick) 75 mg/dL (70-99) 93 mg/dL (70-99) Test 04/20/18 05:10 04/20/18 07:34 04/20/18 11:35 White Blood Count 8.6 x10^3/uL (4.0-11.0) Red Blood Count 3.48 x10^6/uL (3.50-5.40) Hemoglobin 10.6 g/dL (12.0-15.5) Hematocrit 31.6 % (36.0-47.0) Mean Corpuscular Volume 91 fL (79-100) Mean Corpuscular Hemoglobin 31 pg (25-35) Mean Corpuscular Hemoglobin Concent 34 g/dL (31-37) Red Cell Distribution Width 14.8 % (11.5-14.5) Platelet Count 229 x10^3/uL (140-400) Neutrophils (%) (Auto) 50 % (31-73) Lymphocytes (%) (Auto) 39 % (24-48) Monocytes (%) (Auto) 10 % (0-9) Eosinophils (%) (Auto) 0 % (0-3) Basophils (%) (Auto) 1 % (0-3) Neutrophils # (Auto) 4.3 x10^3uL (1.8-7.7) Lymphocytes # (Auto) 3.3 x10^3/uL (1.0-4.8) Monocytes # (Auto) 0.9 x10^3/uL (0.0-1.1) Eosinophils # (Auto) 0.0 x10^3/uL (0.0-0.7) Basophils # (Auto) 0.1 x10^3/uL (0.0-0.2) Sodium Level 137 mmol/L (136-145) Potassium Level 4.7 mmol/L (3.5-5.1) Chloride Level 101 mmol/L (98-107) Carbon Dioxide Level 20 mmol/L (21-32) Anion Gap 16 (6-14) Blood Urea Nitrogen 26 mg/dL (7-20) Creatinine 2.2 mg/dL (0.6-1.0) Estimated GFR (Cockcroft-Gault) 26.7 BUN/Creatinine Ratio 12 (6-20) Glucose Level 135 mg/dL (70-99) Calcium Level 9.7 mg/dL (8.5-10.1) Ionized Calcium 1.27 mmol/L (1.13-1.32) Total Bilirubin 0.3 mg/dL (0.2-1.0) Aspartate Amino Transf (AST/SGOT) 17 U/L (15-37) Alanine Aminotransferase (ALT/SGPT) 12 U/L (14-59) Alkaline Phosphatase 47 U/L (46-116) Total Protein 7.6 g/dL (6.4-8.2) Albumin 3.9 g/dL (3.4-5.0) Albumin/Globulin Ratio 1.1 (1.0-1.7) Glucose (Fingerstick) 146 mg/dL (70-99) 149 mg/dL (70-99) Laboratory Tests Test 04/19/18 12:20 04/19/18 17:00 04/19/18 20:28 04/20/18 05:10 White Blood Count 6.7 x10^3/uL (4.0-11.0) 8.6 x10^3/uL (4.0-11.0) Red Blood Count 3.63 x10^6/uL (3.50-5.40) 3.48 x10^6/uL (3.50-5.40) Hemoglobin 11.2 g/dL (12.0-15.5) 10.6 g/dL (12.0-15.5) Hematocrit 33.2 % (36.0-47.0) 31.6 % (36.0-47.0) Mean Corpuscular Volume 91 fL (79-100) 91 fL (79-100) Mean Corpuscular Hemoglobin 31 pg (25-35) 31 pg (25-35) Mean Corpuscular Hemoglobin Concent 34 g/dL (31-37) 34 g/dL (31-37) Red Cell Distribution Width 14.6 % (11.5-14.5) 14.8 % (11.5-14.5) Platelet Count 230 x10^3/uL (140-400) 229 x10^3/uL (140-400) Neutrophils (%) (Auto) 58 % (31-73) 50 % (31-73) Lymphocytes (%) (Auto) 32 % (24-48) 39 % (24-48) Monocytes (%) (Auto) 9 % (0-9) 10 % (0-9) Eosinophils (%) (Auto) 1 % (0-3) 0 % (0-3) Basophils (%) (Auto) 1 % (0-3) 1 % (0-3) Neutrophils # (Auto) 3.9 x10^3uL (1.8-7.7) 4.3 x10^3uL (1.8-7.7) Lymphocytes # (Auto) 2.1 x10^3/uL (1.0-4.8) 3.3 x10^3/uL (1.0-4.8) Monocytes # (Auto) 0.6 x10^3/uL (0.0-1.1) 0.9 x10^3/uL (0.0-1.1) Eosinophils # (Auto) 0.0 x10^3/uL (0.0-0.7) 0.0 x10^3/uL (0.0-0.7) Basophils # (Auto) 0.1 x10^3/uL (0.0-0.2) 0.1 x10^3/uL (0.0-0.2) Sodium Level 132 mmol/L (136-145) 137 mmol/L (136-145) Potassium Level 5.2 mmol/L (3.5-5.1) 4.7 mmol/L (3.5-5.1) Chloride Level 97 mmol/L (98-107) 101 mmol/L (98-107) Carbon Dioxide Level 20 mmol/L (21-32) 20 mmol/L (21-32) Anion Gap 15 (6-14) 16 (6-14) Blood Urea Nitrogen 33 mg/dL (7-20) 26 mg/dL (7-20) Creatinine 3.4 mg/dL (0.6-1.0) 2.2 mg/dL (0.6-1.0) Estimated GFR (Cockcroft-Gault) 16.2 26.7 BUN/Creatinine Ratio 10 (6-20) 12 (6-20) Glucose Level 155 mg/dL (70-99) 135 mg/dL (70-99) Calcium Level 10.3 mg/dL (8.5-10.1) 9.7 mg/dL (8.5-10.1) Total Bilirubin 0.4 mg/dL (0.2-1.0) 0.3 mg/dL (0.2-1.0) Aspartate Amino Transf (AST/SGOT) 18 U/L (15-37) 17 U/L (15-37) Alanine Aminotransferase (ALT/SGPT) 11 U/L (14-59) 12 U/L (14-59) Alkaline Phosphatase 51 U/L (46-116) 47 U/L (46-116) Total Protein 7.9 g/dL (6.4-8.2) 7.6 g/dL (6.4-8.2) Albumin 3.9 g/dL (3.4-5.0) 3.9 g/dL (3.4-5.0) Albumin/Globulin Ratio 1.0 (1.0-1.7) 1.1 (1.0-1.7) Lipase 142 U/L (73-393) Glucose (Fingerstick) 75 mg/dL (70-99) 93 mg/dL (70-99) Ionized Calcium 1.27 mmol/L (1.13-1.32) Test 04/20/18 07:34 04/20/18 11:35 Glucose (Fingerstick) 146 mg/dL (70-99) 149 mg/dL (70-99) Medications Current Medications Ondansetron HCl (Zofran) 8 mg 1X ONCE IV Last administered on 04/19/18at 12:30 ; Start 04/19/18 at 12:30; Stop 04/19/18 at 12:31; Status DC Morphine Sulfate (Morphine Sulfate) 4 mg 1X ONCE IV Last administered on at 12:30; Start 04/19/18 at 12:30; Stop 04/19/18 at 12:31; Status DC Sodium Chloride 1,000 ml @ 1,000 mls/hr 1X ONCE IV Last administered on at 12:30; Start 04/19/18 at 12:30; Stop 04/19/18 at 13:29; Status DC Morphine Sulfate (Morphine Sulfate) 4 mg 1X ONCE IV Last administered on at 15:37; Start 04/19/18 at 15:15; Stop 04/19/18 at 15:16; Status DC Ondansetron HCl (Zofran) 4 mg PRN Q8HRS PRN IV NAUSEA/VOMITING Last administered on 04/20/18at 02:28; Start 04/19/18 at 15:15; Stop 04/20/18 at 10:34 ; Status DC Morphine Sulfate (Morphine Sulfate) 2 mg PRN Q2HR PRN IV PAIN Last administered on 04/20/18at 10:30; Start 04/19/18 at 15:15; Stop 04/20/18 at 15:14 Sodium Chloride 1,000 ml @ 75 mls/hr [id number] IV Last administered on at 04:41; Start 04/19/18 at 15:06; Stop 04/20/18 at 15:05 Prochlorperazine Edisylate (Compazine) 10 mg PRN Q6HRS PRN IV NAUSEA/VOMITING; Start 04/19/18 at 18:45 Amlodipine Besylate (Norvasc) 10 mg BID PO Last administered on 04/20/18at 11:20 ; Start 04/19/18 at 21:00 Docusate Sodium (Colace) 100 mg DAILY PO ; Start 04/20/18 at 09:00; Stop at 09:00; Status DC Acetaminophen/ Hydrocodone Bitart (Lortab 5/325) 1 tab PRN BID PRN PO PAIN Last administered on 04/20/18 05:43; Start 04/19/18 at 18:45 Levothyroxine Sodium (Synthroid) 100 mcg DAILY05 PO Last administered on 04:45; Start 04/20/18 at 05:00 Metoclopramide HCl (Reglan) 10 mg PRN TID PRN PO NAUSEA; Start 04/19/18 at 18: 45; Stop 04/20/18 at 09:47; Status DC Metoprolol Succinate (Toprol Xl) 100 mg DAILY PO ; Start 04/20/18 at 09:00 Trazodone HCl (Desyrel) 50 mg QHS PO Last administered on 04/19/18at 20:07; Start 04/19/18 at 21:00 Zolpidem Tartrate (Ambien) 5 mg PRN QHS PRN PO INSOMNIA Last administered on 21:30; Start 04/19/18 at 18:45 Insulin Glargine (Lantus) 20 units QHS SQ Last administered on 04/19/18at 21:41 ; Start 04/19/18 at 21:00 Ferrous Sulfate (Feosol) 325 mg DAILYWBKFT PO Last administered on 04/20/18at 11 :20; Start 04/20/18 at 08:00 Pantoprazole Sodium (Protonix) 40 mg DAILYAC PO ; Start 04/20/18 at 07:30; Stop 04/20/18 at 09:47; Status DC Simvastatin (Zocor) 20 mg HS PO Last administered on 04/19/18 20:07; Start at 21:00 Sucralfate (Carafate) 1 gm QIDACHS PO Last administered on 04/19/18 20:07; Start 04/19/18 at 21:00 Docusate Sodium (Colace) 100 mg DAILY PO Last administered on 04/20/18at 11:18; Start 04/19/18 at 20:00 Polyethylene Glycol (miraLAX PACKET) 17 gm 1X ONCE PO Last administered on 19:44; Start 04/19/18 at 19:30; Stop 04/19/18 at 19:31; Status DC Polyethylene Glycol (miraLAX PACKET) 17 gm DAILY PO Last administered on 11:18; Start 04/20/18 at 09:00 Ceftriaxone Sodium (Rocephin) 1 gm Q24H IVP Last administered on 04/19/18at 19: 45; Start 04/19/18 at 20:00 Heparin Sodium (Porcine) (Heparin Sodium) 5,000 unit BID SQ Last administered on 04/20/18at 11:30; Start 04/19/18 at 21:00 Pantoprazole Sodium (PROTONIX VIAL for IV PUSH) 40 mg DAILYAC IVP ; Start at 07:30 Metoclopramide HCl (Reglan Vial) 5 mg QIDACHS IV Last administered on at 11:18; Start 04/20/18 at 11:30 Ondansetron HCl (Zofran) 4 mg PRN Q6HRS PRN IV NAUSEA/VOMITING; Start 04/20/18 at 10:45 Prochlorperazine Edisylate (Compazine) 10 mg PRN Q6HRS PRN IV NAUSEA/VOMITING; Start 04/20/18 at 10:45 Active Scripts Active Levemir Flextouch (Insulin Detemir) 100 Unit/1 Ml Insuln.pen 20 Unit SQ QHS 30 Days Reported Metformin Hcl 1,000 Mg Tablet 1,000 Mg PO BIDWMEALS Ferralet 90 Dual-Iron Tablet (Iron, Carb & Gluc/Fa/B12/C/Dss) 1 Each Tablet 1 Tab PO DAILY Reglan (Metoclopramide Hcl) 10 Mg Tablet 1 Tab PO TID PRN Sucralfate 1 Gm Tablet 1 Tab PO QIDACHS Metoprolol Succinate ( Xl ) (Metoprolol Succinate) 100 Mg Tab.er.24h 1 Tab PO DAILY Simvastatin 20 Mg Tablet 1 Tab PO QHS [place] 5-325 Tablet (Acetaminophen/Hydrocodone Bitart) 1 Each Tablet 1 Tab PO BID PRN Levothyroxine Sodium 100 Mcg Tablet 1 Tab PO DAILY05 Docusate Sodium 100 Mg Capsule 1 Cap PO DAILY Trazodone Hcl 50 Mg Tablet 50 Mg PO QHS Omeprazole 40 Mg Capsule.dr 1 Cap PO DAILY06 Ibuprofen 800 Mg Tablet 800 Mg PO TID PRN Losartan-Hctz 100-12.5 Mg Tab (Losartan/Hydrochlorothiazide) 1 Each Tablet 1 Tab PO DAILY Ambien (Zolpidem Tartrate) 5 Mg Tablet 5 Mg PO HS PRN Protonix (Pantoprazole Sodium) 20 Mg Tablet.dr 40 Mg PO DAILYAC Amlodipine Besylate 10 Mg Tablet 10 Mg PO BID Vitals/I & O Vital Sign - Last 24 Hours 04/19/18 04/19/18 04/19/18 04/19/18 13:00 14:30 15:37 15:40 Pulse 62 61 Resp 16 18 20 20 Pulse Ox 100 100 100 O2 Delivery Room Air Room Air 04/19/18 04/19/18 04/19/18 04/19/18 16:07 16:30 16:58 17:52 Temp 99.2 99.2 Pulse 63 57 Resp 16 20 18 B/P (MAP) 124/67 (86) Pulse Ox 100 100 O2 Delivery Room Air Room Air Room Air 04/19/18 04/19/18 04/19/18 04/19/18 19:00 19:40 20:09 23:00 Temp 99.0 98.9 99.0 98.9 Pulse 61 57 67 Resp 18 16 18 B/P (MAP) 138/74 (95) 124/67 124/73 (90) Pulse Ox 100 99 O2 Delivery Room Air Room Air Room Air 04/20/18 04/20/18 04/20/18 04/20/18 02:28 02:58 03:00 05:43 Temp 98.9 98.9 Pulse 63 Resp 16 18 18 18 B/P (MAP) 145/76 (99) Pulse Ox 98 O2 Delivery Room Air Room Air 04/20/18 04/20/18 04/20/18 04/20/18 06:43 07:00 09:00 10:30 Temp 98.9 98.9 Pulse 75 61 Resp 18 17 B/P (MAP) 139/85 (103) 133/66 Pulse Ox 100 100 O2 Delivery Room Air Room Air Room Air 04/20/18 04/20/18 04/20/18 11:00 11:20 11:50 Temp 98.3 98.3 Pulse 61 61 Resp 17 B/P (MAP) 133/66 (88) 133/66 Pulse Ox 100 100 O2 Delivery Room Air Room Air Intake and Output 04/19/18 04/19/18 04/20/18 15:00 23:00 07:00 Intake Total 1000 ml 0 ml 440 ml Output Total 1 ml 250 ml Balance 1000 ml -1 ml 190 ml MARIBEL MARIEE MD Apr 20, 2018 12:07
[2018-04-20] MEDS ORDERED: CELECOXIB 100 MG CAPSULE. PO SCH (12:15)
--- NOTE | 2018-04-20 12:56 | PDOC2 ---
CONSULT Date of Consult Date of Consult DATE: 04/20/18 TIME: 12:52 Reason for Consult Reason for Consult: PAM Referring Physician Referring Physician: JACOBO Identification/Chief Complaint Chief Complaint ABD PAIN Source Source: Chart review History of Present Illness Reason for Visit: THIS IS A 72 YR OLD WITH ABD PAIN. NOTED TO HAVE PAM WITH A CR OF 3.4. HAS NOTED BEEN EATING WELL LAST SEVERAL DAYS. HAS HX OF GASTROPARESIS. NO CKD NOTED. HE HAS BEEN TAKING HIS HOME MEDS WHICH HAVE INCLUDED A DIURETIC, AND ARB AND AN NSAID. NO OTHER HX NOTED. DENIED PROBLEMS WITH EMPTYING HIS BLADDER Past Medical History Cardiovascular: HTN, Hyperlipidemia Pulmonary: Pulmonary embolus, Other GI: Diverticulosis, GERD, Other Heme/Onc: Anemia NOS Psych: Anxiety Renal/: No pertinent hx, UTI, Urinary Incontinence Endocrine: Diabetes, Hypothyroidism Past Surgical History Past Surgical History: Cholecystectomy, Cataract Removal, Total knee replacement, Hysterectomy, Other Family History Family History: Coronary Artery Disease, Diabetes, Hypertension Social History No ALCOHOL: none Drugs: None Lives: Alone Current Problem List Problem List Problems Medical Problems: (1) Gastroparesis Status: Acute (2) Headache Status: Acute (3) Renal failure Status: Acute Current Medications Current Medications Current Medications Ondansetron HCl (Zofran) 8 mg 1X ONCE IV Last administered on 04/19/18at 12:30 ; Start 04/19/18 at 12:30; Stop 04/19/18 at 12:31; Status DC Morphine Sulfate (Morphine Sulfate) 4 mg 1X ONCE IV Last administered on at 12:30; Start 04/19/18 at 12:30; Stop 04/19/18 at 12:31; Status DC Sodium Chloride 1,000 ml @ 1,000 mls/hr 1X ONCE IV Last administered on at 12:30; Start 04/19/18 at 12:30; Stop 04/19/18 at 13:29; Status DC Morphine Sulfate (Morphine Sulfate) 4 mg 1X ONCE IV Last administered on at 15:37; Start 04/19/18 at 15:15; Stop 04/19/18 at 15:16; Status DC Ondansetron HCl (Zofran) 4 mg PRN Q8HRS PRN IV NAUSEA/VOMITING Last administered on 04/20/18at 02:28; Start 04/19/18 at 15:15; Stop 04/20/18 at 10:34 ; Status DC Morphine Sulfate (Morphine Sulfate) 2 mg PRN Q2HR PRN IV PAIN Last administered on 04/20/18 10:30; Start 04/19/18 at 15:15; Stop 04/20/18 at 15:14 Sodium Chloride 1,000 ml @ 75 mls/hr [id number] IV Last administered on 04:41; Start 04/19/18 at 15:06; Stop 04/20/18 at 15:05 Prochlorperazine Edisylate (Compazine) 10 mg PRN Q6HRS PRN IV NAUSEA/VOMITING; Start 04/19/18 at 18:45 Amlodipine Besylate (Norvasc) 10 mg BID PO Last administered on 04/20/18 11:20 ; Start 04/19/18 at 21:00 Docusate Sodium (Colace) 100 mg DAILY PO ; Start 04/20/18 at 09:00; Stop at 09:00; Status DC Acetaminophen/ Hydrocodone Bitart (Lortab 5/325) 1 tab PRN BID PRN PO PAIN Last administered on 04/20/18 05:43; Start 04/19/18 at 18:45 Levothyroxine Sodium (Synthroid) 100 mcg DAILY05 PO Last administered on 04:45; Start 04/20/18 at 05:00 Metoclopramide HCl (Reglan) 10 mg PRN TID PRN PO NAUSEA; Start 04/19/18 at 18: 45; Stop 04/20/18 at 09:47; Status DC Metoprolol Succinate (Toprol Xl) 100 mg DAILY PO ; Start 04/20/18 at 09:00 Trazodone HCl (Desyrel) 50 mg QHS PO Last administered on 04/19/18 20:07; Start 04/19/18 at 21:00 Zolpidem Tartrate (Ambien) 5 mg PRN QHS PRN PO INSOMNIA Last administered on 21:30; Start 04/19/18 at 18:45 Insulin Glargine (Lantus) 20 units QHS SQ Last administered on 04/19/18at 21:41 ; Start 04/19/18 at 21:00 Ferrous Sulfate (Feosol) 325 mg DAILYWBKFT PO Last administered on 04/20/18at 11 :20; Start 04/20/18 at 08:00 Pantoprazole Sodium (Protonix) 40 mg DAILYAC PO ; Start 04/20/18 at 07:30; Stop 04/20/18 at 09:47; Status DC Simvastatin (Zocor) 20 mg HS PO Last administered on 04/19/18 20:07; Start at 21:00 Sucralfate (Carafate) 1 gm QIDACHS PO Last administered on 04/19/18 20:07; Start 04/19/18 at 21:00 Docusate Sodium (Colace) 100 mg DAILY PO Last administered on 04/20/18 11:18; Start 04/19/18 at 20:00 Polyethylene Glycol (miraLAX PACKET) 17 gm 1X ONCE PO Last administered on 19:44; Start 04/19/18 at 19:30; Stop 04/19/18 at 19:31; Status DC Polyethylene Glycol (miraLAX PACKET) 17 gm DAILY PO Last administered on 11:18; Start 04/20/18 at 09:00 Ceftriaxone Sodium (Rocephin) 1 gm Q24H IVP Last administered on 04/19/18 19: 45; Start 04/19/18 at 20:00 Heparin Sodium (Porcine) (Heparin Sodium) 5,000 unit BID SQ Last administered on 04/20/18at 11:30; Start 04/19/18 at 21:00 Pantoprazole Sodium (PROTONIX VIAL for IV PUSH) 40 mg DAILYAC IVP ; Start at 07:30 Metoclopramide HCl (Reglan Vial) 5 mg QIDACHS IV Last administered on at 11:18; Start 04/20/18 at 11:30 Ondansetron HCl (Zofran) 4 mg PRN Q6HRS PRN IV NAUSEA/VOMITING; Start 04/20/18 at 10:45 Prochlorperazine Edisylate (Compazine) 10 mg PRN Q6HRS PRN IV NAUSEA/VOMITING; Start 04/20/18 at 10:45 Celecoxib (CeleBREX) 100 mg BID PO ; Start 04/20/18 at 12:15 Active Scripts Active Levemir Flextouch (Insulin Detemir) 100 Unit/1 Ml Insuln.pen 20 Unit SQ QHS 30 Days Reported Metformin Hcl 1,000 Mg Tablet 1,000 Mg PO BIDWMEALS Ferralet 90 Dual-Iron Tablet (Iron, Carb & Gluc/Fa/B12/C/Dss) 1 Each Tablet 1 Tab PO DAILY Reglan (Metoclopramide Hcl) 10 Mg Tablet 1 Tab PO TID PRN Sucralfate 1 Gm Tablet 1 Tab PO QIDACHS Metoprolol Succinate ( Xl ) (Metoprolol Succinate) 100 Mg Tab.er.24h 1 Tab PO DAILY Simvastatin 20 Mg Tablet 1 Tab PO QHS [place] 5-325 Tablet (Acetaminophen/Hydrocodone Bitart) 1 Each Tablet 1 Tab PO BID PRN Levothyroxine Sodium 100 Mcg Tablet 1 Tab PO DAILY05 Docusate Sodium 100 Mg Capsule 1 Cap PO DAILY Trazodone Hcl 50 Mg Tablet 50 Mg PO QHS Omeprazole 40 Mg Capsule.dr 1 Cap PO DAILY06 Ibuprofen 800 Mg Tablet 800 Mg PO TID PRN Losartan-Hctz 100-12.5 Mg Tab (Losartan/Hydrochlorothiazide) 1 Each Tablet 1 Tab PO DAILY Ambien (Zolpidem Tartrate) 5 Mg Tablet 5 Mg PO HS PRN Protonix (Pantoprazole Sodium) 20 Mg Tablet.dr 40 Mg PO DAILYAC Amlodipine Besylate 10 Mg Tablet 10 Mg PO BID Allergies Allergies: Coded Allergies: Sulfa (Sulfonamide Antibiotics) (Verified Allergy, Intermediate, 04/19/18) prochlorperazine (Verified Adverse Reaction, Intermediate, DIZZY, 04/19/18) ROS General: YES: Fatigue, Malaise, Appetite PSYCHOLOGICAL ROS: YES: Anxiety, Depression Eyes: Yes Decreased vision HEENT: YES: [place] ALLERGY AND IMMUNOLOGY: YES: Seasonal Allergies Respiratory: YES: Cough Gastrointestinal: Yes Nausea, Yes Constipation Genitourinary: YES Other (NOCTURIA) Musculoskeletal: Yes Muscular Weakness Neurological: Yes Weakness Skin: Yes Dry Skin Physical Exam General: Alert, Oriented X3, Cooperative HEENT: Atraumatic, PERRLA, Mucous membr. moist/pink Lungs: Clear to auscultation, Normal air movement Heart: Regular rate, Normal S1, Normal S2 Abdomen: Normal bowel sounds, Soft, No tenderness Extremities: No cyanosis Skin: No breakdown Neuro: Normal speech, Sensation intact, Cranial nerves 3-12 NL Psych/Mental Status: Mental status NL, Mood NL MUSCULOSKELETAL: No joint tenderness, No deformity, No swelling Vitals VITALS Vital Signs Date Time Temp Pulse Resp B/P (MAP) Pulse Ox O2 Delivery O2 Flow Rate FiO2 04/20/18 11:50 100 Room Air 04/20/18 11:20 61 133/66 04/20/18 11:00 98.3 17 98.3 Labs Labs Laboratory Tests Test 04/19/18 11:40 04/19/18 12:20 04/19/18 17:00 04/19/18 20:28 Urine Collection Type Unknown Urine Color Yellow Urine Clarity Cloudy Urine pH 5.0 Urine Specific [place] 1.020 Urine Protein Negative mg/dL (NEG-TRACE) Urine Glucose (UA) Negative mg/dL (NEG) Urine Ketones (Stick) Trace mg/dL (NEG) Urine Blood Trace (NEG) Urine Nitrite Negative (NEG) Urine Bilirubin Small (NEG) Urine Urobilinogen Dipstick 0.2 mg/dL (0.2 mg/dL) Urine Leukocyte Esterase Large (NEG) Urine RBC Occ /HPF (0-2) Urine WBC 11-20 /HPF (0-4) Urine Squamous Epithelial Cells Many /LPF Urine Bacteria Many /HPF (0-FEW) Urine Mucus Mod /LPF White Blood Count 6.7 x10^3/uL (4.0-11.0) Red Blood Count 3.63 x10^6/uL (3.50-5.40) Hemoglobin 11.2 g/dL (12.0-15.5) Hematocrit 33.2 % (36.0-47.0) Mean Corpuscular Volume 91 fL (79-100) Mean Corpuscular Hemoglobin 31 pg (25-35) Mean Corpuscular Hemoglobin Concent 34 g/dL (31-37) Red Cell Distribution Width 14.6 % (11.5-14.5) Platelet Count 230 x10^3/uL (140-400) Neutrophils (%) (Auto) 58 % (31-73) Lymphocytes (%) (Auto) 32 % (24-48) Monocytes (%) (Auto) 9 % (0-9) Eosinophils (%) (Auto) 1 % (0-3) Basophils (%) (Auto) 1 % (0-3) Neutrophils # (Auto) 3.9 x10^3uL (1.8-7.7) Lymphocytes # (Auto) 2.1 x10^3/uL (1.0-4.8) Monocytes # (Auto) 0.6 x10^3/uL (0.0-1.1) Eosinophils # (Auto) 0.0 x10^3/uL (0.0-0.7) Basophils # (Auto) 0.1 x10^3/uL (0.0-0.2) Sodium Level 132 mmol/L (136-145) Potassium Level 5.2 mmol/L (3.5-5.1) Chloride Level 97 mmol/L (98-107) Carbon Dioxide Level 20 mmol/L (21-32) Anion Gap 15 (6-14) Blood Urea Nitrogen 33 mg/dL (7-20) Creatinine 3.4 mg/dL (0.6-1.0) Estimated GFR (Cockcroft-Gault) 16.2 BUN/Creatinine Ratio 10 (6-20) Glucose Level 155 mg/dL (70-99) Calcium Level 10.3 mg/dL (8.5-10.1) Total Bilirubin 0.4 mg/dL (0.2-1.0) Aspartate Amino Transf (AST/SGOT) 18 U/L (15-37) Alanine Aminotransferase (ALT/SGPT) 11 U/L (14-59) Alkaline Phosphatase 51 U/L (46-116) Total Protein 7.9 g/dL (6.4-8.2) Albumin 3.9 g/dL (3.4-5.0) Albumin/Globulin Ratio 1.0 (1.0-1.7) Lipase 142 U/L (73-393) Glucose (Fingerstick) 75 mg/dL (70-99) 93 mg/dL (70-99) Test 04/20/18 05:10 04/20/18 07:34 04/20/18 11:35 White Blood Count 8.6 x10^3/uL (4.0-11.0) Red Blood Count 3.48 x10^6/uL (3.50-5.40) Hemoglobin 10.6 g/dL (12.0-15.5) Hematocrit 31.6 % (36.0-47.0) Mean Corpuscular Volume 91 fL (79-100) Mean Corpuscular Hemoglobin 31 pg (25-35) Mean Corpuscular Hemoglobin Concent 34 g/dL (31-37) Red Cell Distribution Width 14.8 % (11.5-14.5) Platelet Count 229 x10^3/uL (140-400) Neutrophils (%) (Auto) 50 % (31-73) Lymphocytes (%) (Auto) 39 % (24-48) Monocytes (%) (Auto) 10 % (0-9) Eosinophils (%) (Auto) 0 % (0-3) Basophils (%) (Auto) 1 % (0-3) Neutrophils # (Auto) 4.3 x10^3uL (1.8-7.7) Lymphocytes # (Auto) 3.3 x10^3/uL (1.0-4.8) Monocytes # (Auto) 0.9 x10^3/uL (0.0-1.1) Eosinophils # (Auto) 0.0 x10^3/uL (0.0-0.7) Basophils # (Auto) 0.1 x10^3/uL (0.0-0.2) Sodium Level 137 mmol/L (136-145) Potassium Level 4.7 mmol/L (3.5-5.1) Chloride Level 101 mmol/L (98-107) Carbon Dioxide Level 20 mmol/L (21-32) Anion Gap 16 (6-14) Blood Urea Nitrogen 26 mg/dL (7-20) Creatinine 2.2 mg/dL (0.6-1.0) Estimated GFR (Cockcroft-Gault) 26.7 BUN/Creatinine Ratio 12 (6-20) Glucose Level 135 mg/dL (70-99) Calcium Level 9.7 mg/dL (8.5-10.1) Ionized Calcium 1.27 mmol/L (1.13-1.32) Iron Level 62 ug/dL (50-170) Total Iron Binding Capacity 313 ug/dL (250-450) Iron Saturation 20 % (15-34) Total Bilirubin 0.3 mg/dL (0.2-1.0) Aspartate Amino Transf (AST/SGOT) 17 U/L (15-37) Alanine Aminotransferase (ALT/SGPT) 12 U/L (14-59) Alkaline Phosphatase 47 U/L (46-116) Total Protein 7.6 g/dL (6.4-8.2) Albumin 3.9 g/dL (3.4-5.0) Albumin/Globulin Ratio 1.1 (1.0-1.7) Glucose (Fingerstick) 146 mg/dL (70-99) 149 mg/dL (70-99) Laboratory Tests Test 04/19/18 17:00 04/19/18 20:28 04/20/18 05:10 04/20/18 07:34 Glucose (Fingerstick) 75 mg/dL (70-99) 93 mg/dL (70-99) 146 mg/dL (70-99) White Blood Count 8.6 x10^3/uL (4.0-11.0) Red Blood Count 3.48 x10^6/uL (3.50-5.40) Hemoglobin 10.6 g/dL (12.0-15.5) Hematocrit 31.6 % (36.0-47.0) Mean Corpuscular Volume 91 fL (79-100) Mean Corpuscular Hemoglobin 31 pg (25-35) Mean Corpuscular Hemoglobin Concent 34 g/dL (31-37) Red Cell Distribution Width 14.8 % (11.5-14.5) Platelet Count 229 x10^3/uL (140-400) Neutrophils (%) (Auto) 50 % (31-73) Lymphocytes (%) (Auto) 39 % (24-48) Monocytes (%) (Auto) 10 % (0-9) Eosinophils (%) (Auto) 0 % (0-3) Basophils (%) (Auto) 1 % (0-3) Neutrophils # (Auto) 4.3 x10^3uL (1.8-7.7) Lymphocytes # (Auto) 3.3 x10^3/uL (1.0-4.8) Monocytes # (Auto) 0.9 x10^3/uL (0.0-1.1) Eosinophils # (Auto) 0.0 x10^3/uL (0.0-0.7) Basophils # (Auto) 0.1 x10^3/uL (0.0-0.2) Sodium Level 137 mmol/L (136-145) Potassium Level 4.7 mmol/L (3.5-5.1) Chloride Level 101 mmol/L (98-107) Carbon Dioxide Level 20 mmol/L (21-32) Anion Gap 16 (6-14) Blood Urea Nitrogen 26 mg/dL (7-20) Creatinine 2.2 mg/dL (0.6-1.0) Estimated GFR (Cockcroft-Gault) 26.7 BUN/Creatinine Ratio 12 (6-20) Glucose Level 135 mg/dL (70-99) Calcium Level 9.7 mg/dL (8.5-10.1) Ionized Calcium 1.27 mmol/L (1.13-1.32) Iron Level 62 ug/dL (50-170) Total Iron Binding Capacity 313 ug/dL (250-450) Iron Saturation 20 % (15-34) Total Bilirubin 0.3 mg/dL (0.2-1.0) Aspartate Amino Transf (AST/SGOT) 17 U/L (15-37) Alanine Aminotransferase (ALT/SGPT) 12 U/L (14-59) Alkaline Phosphatase 47 U/L (46-116) Total Protein 7.6 g/dL (6.4-8.2) Albumin 3.9 g/dL (3.4-5.0) Albumin/Globulin Ratio 1.1 (1.0-1.7) Test 04/20/18 11:35 Glucose (Fingerstick) 149 mg/dL (70-99) Assessment/Plan Assessment/Plan IMP PAM WITH CR OF 3.4-NO CKD DEHYDRATION URINARY TRACT INFECTION GASTROPARESIS PLAN HYDRATE ANTIBIOTICS HOLD PRN IBUPROFEN HOLD ARB AND HCTZ FROM HOME MED LIST STOP CELEBREX WILL FOLLOW CLAYTON LAMBERT MD Apr 20, 2018 12:56
--- NOTE | 2018-04-20 14:41 | PDOC ---
PROGRESS NOTES Assessment Assessment Severe headaches. Cavernous malformation. UTI. Abdominal pain, acute on chronic. Vomiting. UTI. Chronic narcotic use for more than 10 years. Narcotic dependence. DM HTN. HLD. Hypothyroidism. GERD. RECOMMENDATIONS/PLAN: Brain MRI w/o contrast. Lab: See orders. Pain control. Suggest taper off Narcotics. Please consult GI for chronic abdominal pain. Treat medical diseases. HISTORY OF THE PRESENT ILLNESS: 72-y-old AA female patient with above medical diseases and chronic Narcotic use/ abuse has been having headaches about 5 times a month, but her headaches are increased this time with vomiting to come to the ER of [facility]. She stated her headaches were at frontal head and occipital head as well we dull pain rated 8-9 /10. No focalized sensory or motor deficits noted. PAST MEDICAL HISTORY: Please see above. PAST SURGERY HISTORY: Cataract surgery. Cholecystectomy Hysterectomy. ALLERGY: Unknown MEDICATIONS: Refer to [facility] FAMILY HISTORY: Non contributory. SOCIAL HISTORY: Lives with her daughter at home. Denies current smoking, drinking, and illicit drug use. REVIEW OF SYSTEMS: Constitutional: Obesity. Head: No traumatic brain or head injury. Skin: No edema, or rash. Ear: No infection. Eyes: No vision loss or color blindness. Nose: No bleeding or purulent discharges. Hearing: No hearing decrease. Neck: No injury. Breast: No history of cancer, masses,or discharges. Cardiac: HTN, HLD. Pulmonary: No OPD. GI: GERD. Urinary/genital: UTI. Endocrinologic: Diabetes Mellitus, hypothyroidism, obesity. Skeletomuscular: No muscular atrophy, deformity. Neurological: see HP. Psychiatric: Chronic narcotics use/abuse. Otherwise, not [id number] review of systems. PHYSICAL EXAMINATION: General appearance is in subacute distress. HEENT: Normocephalic and nontraumatic. Eyes, nose, ears, and throat are unremarkable. Neck is supple. No lymphadenopathy. No bruits are heard over the carotid artery. No crepitus. Cardiovascular: S1, S2, regular rate and rhythm. Pulmonary: Clear to auscultation bilaterally. Abdomen: Bowel sounds are positive. Abdomen is soft, nontender, and nondistended. Extremities: No rash, lesions, or edema. No restriction of range of motion NEUROLOGICAL EXAMINATION: Awake. Oriented to time, place and person. PERRL. EOMI. CN: no focal findings. Muscle tone: within normal. Muscle strength: 5 DTR: 2 Plantar reflex: Flexor response bilaterally Gait: not examined in bed. Sensory exam: no abnormal findings. No acute cerebellar signs elicited. F-T-N test fine. Objective Objective Vital Signs Date Time Temp Pulse Resp B/P (MAP) Pulse Ox O2 Delivery O2 Flow Rate FiO2 04/20/18 11:50 100 Room Air 04/20/18 11:20 61 133/66 04/20/18 11:00 98.3 17 98.3 Intake and Output 04/20/18 07:00 Intake Total 1440 ml Output Total 251 ml Balance 1189 ml Intake Oral 390 ml IV Total 1000 ml Blood Product IV Normal Saline Flush 50 ml Output Urine Total 251 ml Vitals Signs Vitals VS - Last 72 Hours, by Label Date Time Temp Pulse Resp B/P (MAP) Pulse Ox O2 Delivery O2 Flow Rate FiO2 04/20/18 11:50 100 Room Air 04/20/18 11:20 61 133/66 04/20/18 11:00 98.3 61 17 133/66 (88) 100 Room Air 98.3 04/20/18 10:30 100 Room Air 04/20/18 09:00 61 133/66 04/20/18 07:00 98.9 75 17 139/85 (103) 100 Room Air 98.9 04/20/18 06:43 18 Room Air 04/20/18 05:43 18 Room Air 04/20/18 03:00 98.9 63 18 145/76 (99) 98 Room Air 98.9 04/20/18 02:58 18 04/20/18 02:28 16 04/19/18 23:00 98.9 67 18 124/73 (90) 99 Room Air 98.9 04/19/18 20:09 57 124/67 04/19/18 19:40 16 Room Air 04/19/18 19:00 99.0 61 18 138/74 (95) 100 Room Air 99.0 04/19/18 17:52 Room Air 04/19/18 16:58 99.2 57 18 124/67 (86) 100 Room Air 99.2 04/19/18 16:30 63 20 100 04/19/18 16:07 16 Room Air 04/19/18 15:40 61 20 100 04/19/18 15:37 20 100 Room Air 04/19/18 14:30 62 18 100 04/19/18 13:00 16 Room Air 04/19/18 11:25 97.7 83 20 110/64 (79) 99 Room Air 97.7 Laboratory Laboratory Laboratory Tests Test 04/19/18 17:00 04/19/18 20:28 04/20/18 05:10 04/20/18 07:34 Glucose (Fingerstick) 75 mg/dL (70-99) 93 mg/dL (70-99) 146 mg/dL (70-99) White Blood Count 8.6 x10^3/uL (4.0-11.0) Red Blood Count 3.48 x10^6/uL (3.50-5.40) Hemoglobin 10.6 g/dL (12.0-15.5) Hematocrit 31.6 % (36.0-47.0) Mean Corpuscular Volume 91 fL (79-100) Mean Corpuscular Hemoglobin 31 pg (25-35) Mean Corpuscular Hemoglobin Concent 34 g/dL (31-37) Red Cell Distribution Width 14.8 % (11.5-14.5) Platelet Count 229 x10^3/uL (140-400) Neutrophils (%) (Auto) 50 % (31-73) Lymphocytes (%) (Auto) 39 % (24-48) Monocytes (%) (Auto) 10 % (0-9) Eosinophils (%) (Auto) 0 % (0-3) Basophils (%) (Auto) 1 % (0-3) Neutrophils # (Auto) 4.3 x10^3uL (1.8-7.7) Lymphocytes # (Auto) 3.3 x10^3/uL (1.0-4.8) Monocytes # (Auto) 0.9 x10^3/uL (0.0-1.1) Eosinophils # (Auto) 0.0 x10^3/uL (0.0-0.7) Basophils # (Auto) 0.1 x10^3/uL (0.0-0.2) Sodium Level 137 mmol/L (136-145) Potassium Level 4.7 mmol/L (3.5-5.1) Chloride Level 101 mmol/L (98-107) Carbon Dioxide Level 20 mmol/L (21-32) Anion Gap 16 (6-14) Blood Urea Nitrogen 26 mg/dL (7-20) Creatinine 2.2 mg/dL (0.6-1.0) Estimated GFR (Cockcroft-Gault) 26.7 BUN/Creatinine Ratio 12 (6-20) Glucose Level 135 mg/dL (70-99) Calcium Level 9.7 mg/dL (8.5-10.1) Ionized Calcium 1.27 mmol/L (1.13-1.32) Iron Level 62 ug/dL (50-170) Total Iron Binding Capacity 313 ug/dL (250-450) Iron Saturation 20 % (15-34) Total Bilirubin 0.3 mg/dL (0.2-1.0) Aspartate Amino Transf (AST/SGOT) 17 U/L (15-37) Alanine Aminotransferase (ALT/SGPT) 12 U/L (14-59) Alkaline Phosphatase 47 U/L (46-116) Total Protein 7.6 g/dL (6.4-8.2) Albumin 3.9 g/dL (3.4-5.0) Albumin/Globulin Ratio 1.1 (1.0-1.7) Test 04/20/18 11:35 Glucose (Fingerstick) 149 mg/dL (70-99) Medication Medications Current Medications Acetaminophen/ Hydrocodone Bitart (Lortab 5/325) 1 tab PRN BID PRN PO PAIN Last administered on 04/20/18at 05:43; Start 04/19/18 at 18:45 Amlodipine Besylate (Norvasc) 10 mg BID PO Last administered on 04/20/18at 11:20 ; Start 04/19/18 at 21:00 Ceftriaxone Sodium (Rocephin) 1 gm Q24H IVP Last administered on 04/19/18at 19: 45; Start 04/19/18 at 20:00 Celecoxib (CeleBREX) 100 mg BID PO ; Start 04/20/18 at 12:15; Stop 04/20/18 at 12:57; Status DC Docusate Sodium (Colace) 100 mg DAILY PO Last administered on 04/20/18at 11:18; Start 04/19/18 at 20:00 Docusate Sodium (Colace) 100 mg DAILY PO ; Start 04/20/18 at 09:00; Stop at 09:00; Status DC Ferrous Sulfate (Feosol) 325 mg DAILYWBKFT PO Last administered on 04/20/18 11 :20; Start 04/20/18 at 08:00 Heparin Sodium (Porcine) (Heparin Sodium) 5,000 unit BID SQ Last administered on 04/20/18at 11:30; Start 04/19/18 at 21:00 Insulin Glargine (Lantus) 20 units QHS SQ Last administered on 04/19/18at 21:41 ; Start 04/19/18 at 21:00 Levothyroxine Sodium (Synthroid) 100 mcg DAILY05 PO Last administered on 04:45; Start 04/20/18 at 05:00 Metoclopramide HCl (Reglan Vial) 5 mg QIDACHS IV Last administered on 11:18; Start 04/20/18 at 11:30 Metoclopramide HCl (Reglan) 10 mg PRN TID PRN PO NAUSEA; Start 04/19/18 at 18: 45; Stop 04/20/18 at 09:47; Status DC Metoprolol Succinate (Toprol Xl) 100 mg DAILY PO ; Start 04/20/18 at 09:00 Morphine Sulfate (Morphine Sulfate) 2 mg PRN Q2HR PRN IV PAIN Last administered on 04/20/18at 10:30; Start 04/19/18 at 15:15; Stop 04/20/18 at 15:14 Morphine Sulfate (Morphine Sulfate) 4 mg 1X ONCE IV Last administered on at 15:37; Start 04/19/18 at 15:15; Stop 04/19/18 at 15:16; Status DC Ondansetron HCl (Zofran) 4 mg PRN Q6HRS PRN IV NAUSEA/VOMITING Last administered on 04/20/18 13:22; Start 04/20/18 at 10:45 Ondansetron HCl (Zofran) 4 mg PRN Q8HRS PRN IV NAUSEA/VOMITING Last administered on 04/20/18 02:28; Start 04/19/18 at 15:15; Stop 04/20/18 at 10:34 ; Status DC Pantoprazole Sodium (PROTONIX VIAL for IV PUSH) 40 mg DAILYAC IVP ; Start at 07:30 Pantoprazole Sodium (Protonix) 40 mg DAILYAC PO ; Start 04/20/18 at 07:30; Stop 04/20/18 at 09:47; Status DC Polyethylene Glycol (miraLAX PACKET) 17 gm 1X ONCE PO Last administered on 19:44; Start 04/19/18 at 19:30; Stop 04/19/18 at 19:31; Status DC Polyethylene Glycol (miraLAX PACKET) 17 gm DAILY PO Last administered on 11:18; Start 04/20/18 at 09:00 Prochlorperazine Edisylate (Compazine) 10 mg PRN Q6HRS PRN IV NAUSEA/VOMITING; Start 04/19/18 at 18:45 Prochlorperazine Edisylate (Compazine) 10 mg PRN Q6HRS PRN IV NAUSEA/VOMITING; Start 04/20/18 at 10:45 Simvastatin (Zocor) 20 mg HS PO Last administered on 04/19/18 20:07; Start at 21:00 Sodium Chloride 1,000 ml @ 75 mls/hr [id number] IV Last administered on 04:41; Start 04/19/18 at 15:06; Stop 04/20/18 at 15:05 Sucralfate (Carafate) 1 gm QIDACHS PO Last administered on 04/19/18 20:07; Start 04/19/18 at 21:00 Trazodone HCl (Desyrel) 50 mg QHS PO Last administered on 04/19/18 20:07; Start 04/19/18 at 21:00 Zolpidem Tartrate (Ambien) 5 mg PRN QHS PRN PO INSOMNIA Last administered on 21:30; Start 04/19/18 at 18:45 Comment Review of Relevant I have reviewed the following items mert (where applicable) has been applied. KAMRYN CALLEJAS MD Apr 20, 2018 14:41
[2018-04-20 15:00] VITALS: BP 117/72
--- NOTE | 2018-04-20 15:56 | RAD ---
MRI Brain without contrast History: Headaches, vomiting Technique: Multiplanar, multisequential noncontrast MR imaging was performed of the brain. Comparison: 11/28/2017 Findings: 0.6 m cavernous malformation of the medial right temporal lobe is unchanged. No new significant signal abnormality is identified of the brain parenchyma. Ventricular size is stable, within normal limits. There is no new intra-axial mass effect or midline shift. There is no evidence of recent infarct. There has been lens surgery bilaterally. There is patchy minimal mucosal thickening of the ethmoid air cells. Mastoid air cells are aerated. There is degenerative disc disease and spondylosis of visualized C4-5 level, at least mild spinal stenosis at this level. Impression: 1. Intracranial findings are unchanged, stable small cavernous malformation of the medial right temporal lobe. Electronically signed by: Baldemar Macias MD (04/20/2018 3:52 PM) [id number]
--- NOTE | 2018-04-20 16:05 | NUR ---
SW following pt for anticipated dc needs. Chart reviewed and DW RN. Pt lives at home with daughter. Per RN, PT/OT unable to work with pt today as pt was vomiting. SW will continue to follow pt.
[2018-04-20 19:00] VITALS: BP 124/69
[2018-04-20 20:02] LABS: AMPHETAMINE/METHAMPHETAMINE NEG (NEG); BARBITURATES NEG (NEG); BENZODIAZEPINES POS (NEG); CANNABINOIDS NEG (NEG); COCAINE NEG (NEG); METHADONE NEG (NEG); OPIATES POS (NEG); PHENCYCLIDINE NEG (NEG)
[2018-04-20] MEDS: cefTRIAXone IV Push 1 GM VIAL. IVP SCH (20:41)
[2018-04-20] MEDS: SIMVASTATIN 20 MG TABLET PO SCH (20:44)
[2018-04-20] MEDS: LACTOBACILLUS RHAMNOSUS GG 1 CAPSULE. PO SCH (20:44)
[2018-04-20] MEDS: traZODone 50 MG TABLET. PO SCH (20:44)
[2018-04-20] MEDS: INSULIN GLARGINE 300 UNITS/3 ML INSULN.PEN. SQ SCH (20:54)
--- NOTE | 2018-04-20 21:00 | NUR ---
Patient requested to have only 15 units out of scheduled 20 units of Lantus this HS, BS 129 this time.
[2018-04-20 22:52] VITALS: BP 128/87
[2018-04-21] VITALS (7 sets, daily range): BP systolic 135–151; BP diastolic 83–93
[2018-04-21] MEDS: MORPHINE SULFATE 4 MG/ML VIAL. IV PRN ×5 (01:53→15:35)
[2018-04-21] MEDS: LEVOTHYROXINE 100 MCG TABLET PO SCH (04:52)
[2018-04-21 05:30] LABS: CALCIUM 9.6 mg/dL (8.5-10.1); CREATININE 1.4 mg/dL (0.6-1.0)
[2018-04-21] MEDS: PANTOPRAZOLE IV PUSH 40 MG VIAL. IVP SCH (07:35)
[2018-04-21] MEDS: SUCRALFATE 1 GM TABLET. PO SCH ×4 (07:35→19:54)
[2018-04-21] MEDS: METOCLOPRAMIDE HCL 10 MG/2 ML VIAL. IV SCH ×4 (07:36→19:55)
--- NOTE | 2018-04-21 07:43 | EKG ---
[facility] [address] [place] [address] Test Date: 2018-04-21 Test Time: 07:32:09 Pat Name: HI CRYSTAL Department: Room: 504 1 Gender: F Migrant Leader: : 1945 Requested By: LINDA CENTENO Order Number: [id number] Reading MD: Alexander Gordon Measurements Intervals [place] Rate: 100 P: -38 OK: 118 QRS: -21 QRSD: 76 T: 176 QT: 336 QTc: 436 Interpretive Statements SINUS TACHYCARDIA LEFTWARD AXIS T ABNORMALITY IN ANTERIOR LEADS LATERAL LEADS ABNORMAL ECG Electronically Signed On 04-28-2018 10:55:03 NURSE PAR[place] by Alexander Gordon
--- NOTE | 2018-04-21 07:43 | NUR ---
Rapid Response called on patient at 0730 due to chest pain (mid-sternal), elevated HR at 140-160. Patient alert and oriented, trembling. Patient rates pain at 8/10. EKG ordered- normal Sinus Tach. Troponin ordered. Lab at bedside drawing
[2018-04-21] MEDS: FERROUS SULFATE 325 MG TABLET. PO SCH (08:00)
--- NOTE | 2018-04-21 08:45 | NUR ---
Rapid response in room 504, patient complaining of chest pain and shortness of air, Kate ARIAS reported that her HR was in the 140s, it was 89 on my arrival, Spo2 97% on RA,VS stable,EKG ordered, Stat trop ordered, Morphine 2mg given IVP by Kate ARIAS. Patient remains on unit, consulted. Chest pain relieved per patient after morphine given. Addendum: 04/21/18 at 0849 by EVA AGUILAR RN Amended: Links added.
[2018-04-21] MEDS: POLYETHYLENE GLYCOL 3350 17 GM PACKET. PO SCH (09:00)
[2018-04-21] MEDS: amLODIPine BESYLATE 10 MG TABLET PO SCH ×2 (09:19→19:54)
[2018-04-21] MEDS: LACTOBACILLUS RHAMNOSUS GG 1 CAPSULE. PO SCH ×2 (09:19→19:54)
[2018-04-21] MEDS: METOPROLOL SUCC 24HR ER 100 MG TAB.ER.24H. PO SCH (09:19)
[2018-04-21] MEDS: DOCUSATE SODIUM 100 MG CAPSULE. PO SCH (09:19)
[2018-04-21] MEDS: HEPARIN for SUB-Q USE 5,000 UNIT/ML VIAL. SQ SCH ×2 (09:26→19:56)
--- NOTE | 2018-04-21 09:32 | NUR ---
Troponin came back <0.017. Cardiology consulted per Dr. Wood.
--- NOTE | 2018-04-21 10:21 | PDOC2 ---
SWATHI OH OIL MIXER 04/21/18 1021: CARDIAC CONSULT DATE OF CONSULT Date of Consult DATE: 04/21/18 TIME: 10:14 REASON FOR CONSULT Reason for Consult: Chest pain REFERRING PHYSICIAN Referring Physician: Israel SOURCE Source: Chart review, Patient HISTORY OF PRESENT ILLNESS HISTORY OF PRESENT ILLNESS This is a pleasant 72 female admitted for complains of STROUD, persistent nausea and vomiting. Known gastroparesis and GERD. Pt reports of burning midchest pain this morning promting further workup. No palpitations. She was also nauseated at that time and appears to be sinus tach. He nausea and STROUD are currently better. No prior CAD nor VTE. Denies any SOA. Prior to her hospitalization she denies any events of MULLER nor exertional CP. PAST MEDICAL HISTORY Cardiovascular: HTN, Hyperlipidemia Pulmonary: Pulmonary embolus CENTRAL NERVOUS SYSTEM: Dementia GI: Diverticulosis, GERD, Other (gastroparesis) Heme/Onc: Other (PE/DVT) Psych: Anxiety Musculoskeletal: Osteoarthritis Rheumatologic: No pertinent hx Infectious disease: No pertinent hx ENT: Other Renal/: Chronic renal insuff, UTI, Other (nephrolithiasis) Endocrine: Diabetes, Hypothyroidism Dermatology: No pertinent hx PAST SURGICAL HISTORY Past Surgical History: Cholecystectomy, Total knee replacement, Hysterectomy, Other FAMILY HISTORY Family History: Coronary Artery Disease, Diabetes SOCIAL HISTORY Smoke: No ALCOHOL: none Drugs: None CURRENT MEDICATIONS CURRENT MEDICATIONS Current Medications Medications (Trade) Dose Ordered Sig/Alo Route PRN Reason Start Time Stop Time Status Last Admin Dose Admin Pantoprazole Sodium (PROTONIX VIAL for IV PUSH) 40 mg DAILYAC IVP 04/21/18 07:30 04/21/18 07:35 Metoclopramide HCl (Reglan Vial) 5 mg QIDACHS IV 04/20/18 11:30 04/21/18 07:36 Ondansetron HCl (Zofran) 4 mg PRN Q6HRS PRN IV NAUSEA/VOMITING 1ST CHOICE 04/20/18 10:45 04/20/18 23:48 Lactobacillus Rhamnosus (Culturelle) 1 cap BID PO 04/20/18 21:00 04/21/18 09:19 Morphine Sulfate (Morphine Sulfate) 2 mg PRN Q2HR PRN IV PAIN 04/20/18 17:45 04/21/18 07:35 ALLERGIES ALLERGIES: Coded Allergies: Sulfa (Sulfonamide Antibiotics) (Verified Allergy, Intermediate, 2/24/19) prochlorperazine (Verified Adverse Reaction, Intermediate, DIZZY, 04/19/18) ROS Review of System 14 point ROS evaluated with pertinent positives noted per HPI PHYSICAL EXAM General: Alert, Oriented X3, Cooperative, No acute distress HEENT: Atraumatic Lungs: Clear to auscultation, Normal air movement Heart: Regular rate (SR), Normal S1, Normal S2, No murmurs Abdomen: Other (abd tenderness) Extremities: No cyanosis, No edema Skin: No breakdown, No significant lesion Neuro: Normal speech, Sensation intact Psych/Mental Status: Mental status NL, Mood NL MUSCULOSKELETAL: Osteoarthritic changes both hands VITALS VITALS Vital Signs Date Time Temp Pulse Resp B/P (MAP) Pulse Ox O2 Delivery O2 Flow Rate FiO2 04/21/18 09:19 144 146/93 04/21/18 09:17 Room Air 04/21/18 07:00 98.7 18 100 98.7 LABS Lab: Laboratory Tests Test 04/20/18 11:35 04/20/18 15:45 04/20/18 16:44 04/20/18 20:45 Glucose (Fingerstick) 149 mg/dL (70-99) 152 mg/dL (70-99) 129 mg/dL (70-99) Urine Opiates Screen Pos (NEG) Urine Methadone Screen Neg (NEG) Urine Barbiturates Neg (NEG) Urine Phencyclidine Screen Neg (NEG) Urine Amphetamine/Methamphetamine Neg (NEG) Urine Benzodiazepines Screen Pos (NEG) Urine Cocaine Screen Neg (NEG) Urine Cannabinoids Screen Neg (NEG) Urine Ethyl Alcohol Neg (NEG) Test 04/21/18 04:15 04/21/18 08:05 Sodium Level 139 mmol/L (136-145) Potassium Level 4.0 mmol/L (3.5-5.1) Chloride Level 102 mmol/L (98-107) Carbon Dioxide Level 20 mmol/L (21-32) Anion Gap 17 (6-14) Blood Urea Nitrogen 13 mg/dL (7-20) Creatinine 1.4 mg/dL (0.6-1.0) Estimated GFR (Cockcroft-Gault) 45.0 Glucose Level 171 mg/dL (70-99) Calcium Level 9.6 mg/dL (8.5-10.1) Troponin I Quantitative < 0.017 ng/mL (0.000-0.055) ECHOCARDIOGRAM ECHOCARDIOGRAM <Conclusion> There is grossly normal LV segmental wall motion. Limited evaluation due to poor image quality. The left ventricular systolic function is normal and the ejection fraction is within normal range. EF 55% DATE: 02/03/171627 ASSESSMENT/PLAN ASSESSMENT/PLAN 1. Atypical chest pain: likely GI, doubt ACS. 2. Nausea/abd pain with tachycardia: noted gastroparesis and GERD 3. Severe STROUD with cavernous malformation per MRI: neurology following 4. PAM on CKD: Cr better per nephrology 5. Severe thoracolumbar spondylosis with stenosis. 6. HTN: controlled Pt needing bid norvasc 10 mg bid? 7. HLP: lipids on goal Recommendations TTE, trend trop, lipid and TSH Continue with home BB and other BP regimen except need clarification in regards to norvasc use. AARON ESPINOZA MD 04/21/182038: CARDIAC CONSULT ASSESSMENT/PLAN ASSESSMENT/PLAN Patient seen and examined. Agree with STATION COOK's assessment and plan. CP with atypical features and most probably GI etiology WA ruled out 2D echo showed normal LV function without any wall motion abnormalities Agree with norvasc 10 mg daily Thank you for your consultation SWATHI OH APRN Apr 21, 2018 10:21 AARON ESPINOZA MD Apr 21, 2018 20:39
[2018-04-21 10:45] LABS: CHOLESTEROL/HDL RATIO 2.1
[2018-04-21] MEDS: ONDANSETRON PF 4 MG/2 ML VIAL. IV PRN ×2 (10:50→17:52)
--- NOTE | 2018-04-21 11:53 | PDOC ---
PROGRESS NOTES Chief Complaint Chief Complaint Recurrent n/v - this time began ~1 week ago H/o GERD and gastroparesis Headaches, PAM/CKD, chronic anemia CRC screen - UTD, per HPI Diverticulosis S/p cholecystectomy, h/o J tube placement and dislodgement H/o elevated lipase - not this time Mild cognitive impairment - history is usually a bit difficult CP History of Present Illness History of Present Illness Rapid response today because of chest pains so far first set troponin negative Vital signs and EKG I have reviewed-reassuring Plan: consult cardiology, trend cardiac enzymes Continue supportive meds for the nausea vomiting-known gastroparesis So far no PT needs Vitals Vitals Vital Signs Date Time Temp Pulse Resp B/P (MAP) Pulse Ox O2 Delivery O2 Flow Rate FiO2 04/21/18 09:19 144 146/93 04/21/18 09:17 Room Air 04/21/18 07:00 98.7 18 100 98.7 Physical Exam General: Alert, Oriented X3, Cooperative Heart: Regular rate, Normal S1, Normal S2 Lungs: Clear, Other Abdomen: Normal bowel sounds, Soft, No tenderness Extremities: No cyanosis Skin: No breakdown Labs LABS Laboratory Tests Test 04/20/18 15:45 04/20/18 16:44 04/20/18 20:45 04/21/18 04:15 Urine Opiates Screen Pos (NEG) Urine Methadone Screen Neg (NEG) Urine Barbiturates Neg (NEG) Urine Phencyclidine Screen Neg (NEG) Urine Amphetamine/Methamphetamine Neg (NEG) Urine Benzodiazepines Screen Pos (NEG) Urine Cocaine Screen Neg (NEG) Urine Cannabinoids Screen Neg (NEG) Urine Ethyl Alcohol Neg (NEG) Glucose (Fingerstick) 152 mg/dL (70-99) 129 mg/dL (70-99) Sodium Level 139 mmol/L (136-145) Potassium Level 4.0 mmol/L (3.5-5.1) Chloride Level 102 mmol/L (98-107) Carbon Dioxide Level 20 mmol/L (21-32) Anion Gap 17 (6-14) Blood Urea Nitrogen 13 mg/dL (7-20) Creatinine 1.4 mg/dL (0.6-1.0) Estimated GFR (Cockcroft-Gault) 45.0 Glucose Level 171 mg/dL (70-99) Calcium Level 9.6 mg/dL (8.5-10.1) Triglycerides Level 70 mg/dL (0-150) Cholesterol Level 116 mg/dL (0-200) LDL Cholesterol, Calculated 47 mg/dL (0-100) VLDL Cholesterol, Calculated 14 mg/dL (0-40) Non-HDL Cholesterol Calculated 61 mg/dL (0-129) HDL Cholesterol 55 mg/dL (40-60) Cholesterol/HDL Ratio 2.1 Thyroid Stimulating Hormone (TSH) 0.753 uIU/mL (0.358-3.74) Test 04/21/18 08:05 04/21/18 10:40 Troponin I Quantitative < 0.017 ng/mL (0.000-0.055) < 0.017 ng/mL (0.000-0.055) Review of Systems Review of Systems chest pain, the rest of ROS 14 point negative, some nausea, no emesis Assessment and Plan Assessmemt and Plan Problems Medical Problems: (1) Gastroparesis Status: Acute (2) Headache Status: Acute (3) Renal failure Status: Acute Comment Review of Relevant I have reviewed the following items mert (where applicable) has been applied. Labs Laboratory Tests Test 04/19/18 12:20 04/19/18 17:00 04/19/18 20:28 04/20/18 05:10 White Blood Count 6.7 x10^3/uL (4.0-11.0) 8.6 x10^3/uL (4.0-11.0) Red Blood Count 3.63 x10^6/uL (3.50-5.40) 3.48 x10^6/uL (3.50-5.40) Hemoglobin 11.2 g/dL (12.0-15.5) 10.6 g/dL (12.0-15.5) Hematocrit 33.2 % (36.0-47.0) 31.6 % (36.0-47.0) Mean Corpuscular Volume 91 fL (79-100) 91 fL (79-100) Mean Corpuscular Hemoglobin 31 pg (25-35) 31 pg (25-35) Mean Corpuscular Hemoglobin Concent 34 g/dL (31-37) 34 g/dL (31-37) Red Cell Distribution Width 14.6 % (11.5-14.5) 14.8 % (11.5-14.5) Platelet Count 230 x10^3/uL (140-400) 229 x10^3/uL (140-400) Neutrophils (%) (Auto) 58 % (31-73) 50 % (31-73) Lymphocytes (%) (Auto) 32 % (24-48) 39 % (24-48) Monocytes (%) (Auto) 9 % (0-9) 10 % (0-9) Eosinophils (%) (Auto) 1 % (0-3) 0 % (0-3) Basophils (%) (Auto) 1 % (0-3) 1 % (0-3) Neutrophils # (Auto) 3.9 x10^3uL (1.8-7.7) 4.3 x10^3uL (1.8-7.7) Lymphocytes # (Auto) 2.1 x10^3/uL (1.0-4.8) 3.3 x10^3/uL (1.0-4.8) Monocytes # (Auto) 0.6 x10^3/uL (0.0-1.1) 0.9 x10^3/uL (0.0-1.1) Eosinophils # (Auto) 0.0 x10^3/uL (0.0-0.7) 0.0 x10^3/uL (0.0-0.7) Basophils # (Auto) 0.1 x10^3/uL (0.0-0.2) 0.1 x10^3/uL (0.0-0.2) Sodium Level 132 mmol/L (136-145) 137 mmol/L (136-145) Potassium Level 5.2 mmol/L (3.5-5.1) 4.7 mmol/L (3.5-5.1) Chloride Level 97 mmol/L (98-107) 101 mmol/L (98-107) Carbon Dioxide Level 20 mmol/L (21-32) 20 mmol/L (21-32) Anion Gap 15 (6-14) 16 (6-14) Blood Urea Nitrogen 33 mg/dL (7-20) 26 mg/dL (7-20) Creatinine 3.4 mg/dL (0.6-1.0) 2.2 mg/dL (0.6-1.0) Estimated GFR (Cockcroft-Gault) 16.2 26.7 BUN/Creatinine Ratio 10 (6-20) 12 (6-20) Glucose Level 155 mg/dL (70-99) 135 mg/dL (70-99) Calcium Level 10.3 mg/dL (8.5-10.1) 9.7 mg/dL (8.5-10.1) Total Bilirubin 0.4 mg/dL (0.2-1.0) 0.3 mg/dL (0.2-1.0) Aspartate Amino Transf (AST/SGOT) 18 U/L (15-37) 17 U/L (15-37) Alanine Aminotransferase (ALT/SGPT) 11 U/L (14-59) 12 U/L (14-59) Alkaline Phosphatase 51 U/L (46-116) 47 U/L (46-116) Total Protein 7.9 g/dL (6.4-8.2) 7.6 g/dL (6.4-8.2) Albumin 3.9 g/dL (3.4-5.0) 3.9 g/dL (3.4-5.0) Albumin/Globulin Ratio 1.0 (1.0-1.7) 1.1 (1.0-1.7) Lipase 142 U/L (73-393) Glucose (Fingerstick) 75 mg/dL (70-99) 93 mg/dL (70-99) Ionized Calcium 1.27 mmol/L (1.13-1.32) Iron Level 62 ug/dL (50-170) Total Iron Binding Capacity 313 ug/dL (250-450) Iron Saturation 20 % (15-34) Test 04/20/18 07:34 04/20/18 11:35 04/20/18 15:45 04/20/18 16:44 Glucose (Fingerstick) 146 mg/dL (70-99) 149 mg/dL (70-99) 152 mg/dL (70-99) Urine Opiates Screen Pos (NEG) Urine Methadone Screen Neg (NEG) Urine Barbiturates Neg (NEG) Urine Phencyclidine Screen Neg (NEG) Urine Amphetamine/Methamphetamine Neg (NEG) Urine Benzodiazepines Screen Pos (NEG) Urine Cocaine Screen Neg (NEG) Urine Cannabinoids Screen Neg (NEG) Urine Ethyl Alcohol Neg (NEG) Test 04/20/18 20:45 04/21/18 04:15 04/21/18 08:05 04/21/18 10:40 Glucose (Fingerstick) 129 mg/dL (70-99) Sodium Level 139 mmol/L (136-145) Potassium Level 4.0 mmol/L (3.5-5.1) Chloride Level 102 mmol/L (98-107) Carbon Dioxide Level 20 mmol/L (21-32) Anion Gap 17 (6-14) Blood Urea Nitrogen 13 mg/dL (7-20) Creatinine 1.4 mg/dL (0.6-1.0) Estimated GFR (Cockcroft-Gault) 45.0 Glucose Level 171 mg/dL (70-99) Calcium Level 9.6 mg/dL (8.5-10.1) Triglycerides Level 70 mg/dL (0-150) Cholesterol Level 116 mg/dL (0-200) LDL Cholesterol, Calculated 47 mg/dL (0-100) VLDL Cholesterol, Calculated 14 mg/dL (0-40) Non-HDL Cholesterol Calculated 61 mg/dL (0-129) HDL Cholesterol 55 mg/dL (40-60) Cholesterol/HDL Ratio 2.1 Thyroid Stimulating Hormone (TSH) 0.753 uIU/mL (0.358-3.74) Troponin I Quantitative < 0.017 ng/mL (0.000-0.055) < 0.017 ng/mL (0.000-0.055) Laboratory Tests Test 04/20/18 15:45 04/20/18 16:44 04/20/18 20:45 04/21/18 04:15 Urine Opiates Screen Pos (NEG) Urine Methadone Screen Neg (NEG) Urine Barbiturates Neg (NEG) Urine Phencyclidine Screen Neg (NEG) Urine Amphetamine/Methamphetamine Neg (NEG) Urine Benzodiazepines Screen Pos (NEG) Urine Cocaine Screen Neg (NEG) Urine Cannabinoids Screen Neg (NEG) Urine Ethyl Alcohol Neg (NEG) Glucose (Fingerstick) 152 mg/dL (70-99) 129 mg/dL (70-99) Sodium Level 139 mmol/L (136-145) Potassium Level 4.0 mmol/L (3.5-5.1) Chloride Level 102 mmol/L (98-107) Carbon Dioxide Level 20 mmol/L (21-32) Anion Gap 17 (6-14) Blood Urea Nitrogen 13 mg/dL (7-20) Creatinine 1.4 mg/dL (0.6-1.0) Estimated GFR (Cockcroft-Gault) 45.0 Glucose Level 171 mg/dL (70-99) Calcium Level 9.6 mg/dL (8.5-10.1) Triglycerides Level 70 mg/dL (0-150) Cholesterol Level 116 mg/dL (0-200) LDL Cholesterol, Calculated 47 mg/dL (0-100) VLDL Cholesterol, Calculated 14 mg/dL (0-40) Non-HDL Cholesterol Calculated 61 mg/dL (0-129) HDL Cholesterol 55 mg/dL (40-60) Cholesterol/HDL Ratio 2.1 Thyroid Stimulating Hormone (TSH) 0.753 uIU/mL (0.358-3.74) Test 04/21/18 08:05 04/21/18 10:40 Troponin I Quantitative < 0.017 ng/mL (0.000-0.055) < 0.017 ng/mL (0.000-0.055) Medications Current Medications Ondansetron HCl (Zofran) 8 mg 1X ONCE IV Last administered on 04/19/18at 12:30 ; Start 04/19/18 at 12:30; Stop 04/19/18 at 12:31; Status DC Morphine Sulfate (Morphine Sulfate) 4 mg 1X ONCE IV Last administered on at 12:30; Start 04/19/18 at 12:30; Stop 04/19/18 at 12:31; Status DC Sodium Chloride 1,000 ml @ 1,000 mls/hr 1X ONCE IV Last administered on at 12:30; Start 04/19/18 at 12:30; Stop 04/19/18 at 13:29; Status DC Morphine Sulfate (Morphine Sulfate) 4 mg 1X ONCE IV Last administered on at 15:37; Start 04/19/18 at 15:15; Stop 04/19/18 at 15:16; Status DC Ondansetron HCl (Zofran) 4 mg PRN Q8HRS PRN IV NAUSEA/VOMITING Last administered on 04/20/18at 02:28; Start 04/19/18 at 15:15; Stop 04/20/18 at 10:34 ; Status DC Morphine Sulfate (Morphine Sulfate) 2 mg PRN Q2HR PRN IV PAIN Last administered on 04/20/18 10:30; Start 04/19/18 at 15:15; Stop 04/20/18 at 15:14 ; Status DC Sodium Chloride 1,000 ml @ 75 mls/hr [id number] IV Last administered on 04:41; Start 04/19/18 at 15:06; Stop 04/20/18 at 15:05; Status DC Prochlorperazine Edisylate (Compazine) 10 mg PRN Q6HRS PRN IV NAUSEA/VOMITING 2ND CHOICE; Start 04/19/18 at 18:45 Amlodipine Besylate (Norvasc) 10 mg BID PO Last administered on 04/21/18 09:19 ; Start 04/19/18 at 21:00 Docusate Sodium (Colace) 100 mg DAILY PO ; Start 04/20/18 at 09:00; Stop at 09:00; Status DC Acetaminophen/ Hydrocodone Bitart (Lortab 5/325) 1 tab PRN BID PRN PO PAIN Last administered on 04/20/18 17:19; Start 04/19/18 at 18:45 Levothyroxine Sodium (Synthroid) 100 mcg DAILY05 PO Last administered on 04:52; Start 04/20/18 at 05:00 Metoclopramide HCl (Reglan) 10 mg PRN TID PRN PO NAUSEA; Start 04/19/18 at 18: 45; Stop 04/20/18 at 09:47; Status DC Metoprolol Succinate (Toprol Xl) 100 mg DAILY PO Last administered on 09:19; Start 04/20/18 at 09:00 Trazodone HCl (Desyrel) 50 mg QHS PO Last administered on 04/20/18 20:44; Start 04/19/18 at 21:00 Zolpidem Tartrate (Ambien) 5 mg PRN QHS PRN PO INSOMNIA Last administered on 21:30; Start 04/19/18 at 18:45 Insulin Glargine (Lantus) 20 units QHS SQ Last administered on 04/20/18 20:54 ; Start 04/19/18 at 21:00 Ferrous Sulfate (Feosol) 325 mg DAILYWBKFT PO Last administered on 04/20/18 11 :20; Start 04/20/18 at 08:00 Pantoprazole Sodium (Protonix) 40 mg DAILYAC PO ; Start 04/20/18 at 07:30; Stop 04/20/18 at 09:47; Status DC Simvastatin (Zocor) 20 mg HS PO Last administered on 04/20/18 20:44; Start at 21:00 Sucralfate (Carafate) 1 gm QIDACHS PO Last administered on 04/21/18 07:35; Start 04/19/18 at 21:00 Docusate Sodium (Colace) 100 mg DAILY PO Last administered on 04/21/18 09:19; Start 04/19/18 at 20:00 Polyethylene Glycol (miraLAX PACKET) 17 gm 1X ONCE PO Last administered on 19:44; Start 04/19/18 at 19:30; Stop 04/19/18 at 19:31; Status DC Polyethylene Glycol (miraLAX PACKET) 17 gm DAILY PO Last administered on 11:18; Start 04/20/18 at 09:00 Ceftriaxone Sodium (Rocephin) 1 gm Q24H IVP Last administered on 04/20/18 20: 41; Start 04/19/18 at 20:00 Heparin Sodium (Porcine) (Heparin Sodium) 5,000 unit BID SQ Last administered on 04/21/18 09:26; Start 04/19/18 at 21:00 Pantoprazole Sodium (PROTONIX VIAL for IV PUSH) 40 mg DAILYAC IVP Last administered on 04/21/18 07:35; Start 04/21/18 at 07:30 Metoclopramide HCl (Reglan Vial) 5 mg QIDACHS IV Last administered on 07:36; Start 04/20/18 at 11:30 Ondansetron HCl (Zofran) 4 mg PRN Q6HRS PRN IV NAUSEA/VOMITING 1ST CHOICE Last administered on 04/21/18at 10:50; Start 04/20/18 at 10:45 Prochlorperazine Edisylate (Compazine) 10 mg PRN Q6HRS PRN IV NAUSEA/VOMITING; Start 04/20/18 at 10:45; Stop 04/20/18 at 15:24; Status DC Celecoxib (CeleBREX) 100 mg BID PO ; Start 04/20/18 at 12:15; Stop 04/20/18 at 12:57; Status DC Lactobacillus Rhamnosus (Culturelle) 1 cap BID PO Last administered on at 09:19; Start 04/20/18 at 21:00 Morphine Sulfate (Morphine Sulfate) 2 mg PRN Q2HR PRN IV PAIN Last administered on 04/21/18at 07:35; Start 04/20/18 at 17:45 Active Scripts Active Levemir Flextouch (Insulin Detemir) 100 Unit/1 Ml Insuln.pen 20 Unit SQ QHS 30 Days Reported Metformin Hcl 1,000 Mg Tablet 1,000 Mg PO BIDWMEALS Ferralet 90 Dual-Iron Tablet (Iron, Carb & Gluc/Fa/B12/C/Dss) 1 Each Tablet 1 Tab PO DAILY Reglan (Metoclopramide Hcl) 10 Mg Tablet 1 Tab PO TID PRN Sucralfate 1 Gm Tablet 1 Tab PO QIDACHS Metoprolol Succinate ( Xl ) (Metoprolol Succinate) 100 Mg Tab.er.24h 1 Tab PO DAILY Simvastatin 20 Mg Tablet 1 Tab PO QHS Luttrell 5-325 Tablet (Acetaminophen/Hydrocodone Bitart) 1 Each Tablet 1 Tab PO BID PRN Levothyroxine Sodium 100 Mcg Tablet 1 Tab PO DAILY05 Docusate Sodium 100 Mg Capsule 1 Cap PO DAILY Trazodone Hcl 50 Mg Tablet 50 Mg PO QHS Omeprazole 40 Mg Capsule.dr 1 Cap PO DAILY06 Ibuprofen 800 Mg Tablet 800 Mg PO TID PRN Losartan-Hctz 100-12.5 Mg Tab (Losartan/Hydrochlorothiazide) 1 Each Tablet 1 Tab PO DAILY Ambien (Zolpidem Tartrate) 5 Mg Tablet 5 Mg PO HS PRN Protonix (Pantoprazole Sodium) 20 Mg Tablet.dr 40 Mg PO DAILYAC Amlodipine Besylate 10 Mg Tablet 10 Mg PO BID Vitals/I & O Vital Sign - Last 24 Hours 04/20/18 04/20/18 04/20/18 04/20/18 15:00 17:19 18:24 19:00 Temp 99.0 99.1 99.0 99.1 Pulse 71 65 Resp 17 18 B/P (MAP) 117/72 (87) 124/69 (87) Pulse Ox 99 100 100 99 O2 Delivery Room Air Room Air Room Air Room Air 04/20/18 04/20/18 04/20/18 04/20/18 20:00 20:40 20:44 22:52 Temp 99.1 99.1 Pulse 65 102 Resp 18 B/P (MAP) 124/69 128/87 (101) Pulse Ox 99 O2 Delivery Room Air Room Air Room Air 04/21/18 04/21/18 04/21/18 04/21/18 01:53 03:01 04:53 07:00 Temp 99.8 98.7 99.8 98.7 Pulse 99 144 Resp 18 18 B/P (MAP) 144/85 (104) 146/93 (110) Pulse Ox 99 92 92 100 O2 Delivery Room Air Room Air Room Air Room Air 04/21/18 04/21/18 04/21/18 04/21/18 07:35 07:35 07:36 09:17 Pulse 92 B/P (MAP) 151/89 (109) O2 Delivery Room Air Room Air Room Air 04/21/18 04/21/18 09:19 09:19 Pulse 144 144 B/P (MAP) 146/93 146/93 Intake and Output 04/20/18 04/20/18 04/21/18 14:59 22:59 06:59 Intake Total 280 ml 200 ml Balance 280 ml 200 ml Nutrition Consultation Dietary Evaluation: Recommendations by RD: Add supplement feedings Comments: offer ensure clear supplements, snacks from unit prn Expected Outcomes/Goals: to meet > 75% est nutr needs Interpretation of weight loss: >7.5% in 3 months Malnutrition Findings: Food and Nutrition Intake (Sev: <50% est energy req 5days Weight Status: Overweight MARIBEL MARIEE MD Apr 21, 2018 11:53
--- NOTE | 2018-04-21 12:08 | EKG ---
[facility] [address] [place] [address] Test Date: 2018-04-21 Test Time: 12:00:05 Pat Name: HI CRYSTAL Department: Room: 504 1 Gender: F Metallurgical Specialist: MARIELENA : 1945 Requested By: SWATHI OH Order Number: [id number] Reading MD: Alexander Gordon Measurements Intervals [place] Rate: 85 P: 47 FL: 130 QRS: -12 QRSD: 80 T: -42 QT: 352 QTc: 424 Interpretive Statements SINUS RHYTHM LEFTWARD AXIS ST & T ABNORMALITY, CONSIDER ANTERIOR ISCHEMIA OR LEFT VENTRICULAR STRAIN T ABNORMALITY IN INFEROLATERAL LEADS ABNORMAL ECG Electronically Signed On 04-28-2018 10:57:08 ASSISTANT PROFESSOR OF COMMUNICATION by Alexander Gordon
[2018-04-21] MEDS: HYDROcodone/APAP 5/325MG 1 TAB TABLET PO PRN (13:53)
--- NOTE | 2018-04-21 14:42 | PDOC ---
Renal-Progress Notes Subjective Notes Notes BETTER History of Present Illness Hx of present illness STABLE Vitals Vitals Vital Signs Date Time Temp Pulse Resp B/P (MAP) Pulse Ox O2 Delivery O2 Flow Rate FiO2 04/21/18 13:53 Room Air 04/21/18 11:00 99.0 101 20 135/85 (102) 100 99.0 Weight Weight [ ] I.O. Intake and Output Intake and Output 04/21/18 06:59 Intake Total 480 ml Balance 480 ml Intake Oral 480 ml # Voids 7 Labs Labs Laboratory Tests Test 04/20/18 15:45 04/20/18 16:44 04/20/18 20:45 04/21/18 04:15 Urine Opiates Screen Pos (NEG) Urine Methadone Screen Neg (NEG) Urine Barbiturates Neg (NEG) Urine Phencyclidine Screen Neg (NEG) Urine Amphetamine/Methamphetamine Neg (NEG) Urine Benzodiazepines Screen Pos (NEG) Urine Cocaine Screen Neg (NEG) Urine Cannabinoids Screen Neg (NEG) Urine Ethyl Alcohol Neg (NEG) Glucose (Fingerstick) 152 mg/dL (70-99) 129 mg/dL (70-99) Sodium Level 139 mmol/L (136-145) Potassium Level 4.0 mmol/L (3.5-5.1) Chloride Level 102 mmol/L (98-107) Carbon Dioxide Level 20 mmol/L (21-32) Anion Gap 17 (6-14) Blood Urea Nitrogen 13 mg/dL (7-20) Creatinine 1.4 mg/dL (0.6-1.0) Estimated GFR (Cockcroft-Gault) 45.0 Glucose Level 171 mg/dL (70-99) Calcium Level 9.6 mg/dL (8.5-10.1) Triglycerides Level 70 mg/dL (0-150) Cholesterol Level 116 mg/dL (0-200) LDL Cholesterol, Calculated 47 mg/dL (0-100) VLDL Cholesterol, Calculated 14 mg/dL (0-40) Non-HDL Cholesterol Calculated 61 mg/dL (0-129) HDL Cholesterol 55 mg/dL (40-60) Cholesterol/HDL Ratio 2.1 Thyroid Stimulating Hormone (TSH) 0.753 uIU/mL (0.358-3.74) Test 04/21/18 08:05 04/21/18 10:40 Troponin I Quantitative < 0.017 ng/mL (0.000-0.055) < 0.017 ng/mL (0.000-0.055) Review of Systems Constitutional: yes: alert, oriented Ears/Nose/Throat: Yes: no symptom reported Eyes: Yes: no symptom reported Pulmonary: Yes no symptom reported Cardiovascular: Yes no symptom reported Gastrointestional: Yes: nausea Genitourinary: Yes: no symptom reported Musculoskeletal: Yes: no symptom reported Skin: Yes no symptom reported Psychiatric/Neurological: Yes: no symptom reported Endocrine: Yes: no symptom reported Physical Exam General Appearance: no apparent distress Skin: warm Respiratory: decreased breath sounds Heart: S1S2 Abdomen: soft, bowel sounds present Genitourinary: bladder flat Extremities: pulses present Neurology: alert Musculoskeletal: Osteoarthritis Assessment Assessment MP PAM WITH CR IMPROVED TO 1.4-NO CKD DEHYDRATION URINARY TRACT INFECTION GASTROPARESIS PLAN OFF IVF'S ENC PO ANTIBIOTICS HOLD PRN IBUPROFEN HOLD ARB AND HCTZ FROM HOME MED LIST STOP CELEBREX WILL FOLLOW CLAYTON LAMBERT MD Apr 21, 2018 14:42
--- NOTE | 2018-04-21 15:01 | PDOC ---
G I PROGRESS NOTE Subjective Says stomach marginally better. Still with at least occasional emesis. Physical Exam Lungs clear. RRR Abdomen soft, not tender nor distended. Review of Relevant I have reviewed the following items mert (where applicable) has been applied. Labs Laboratory Tests Test 04/19/18 17:00 04/19/18 20:28 04/20/18 05:10 04/20/18 07:34 Glucose (Fingerstick) 75 mg/dL (70-99) 93 mg/dL (70-99) 146 mg/dL (70-99) White Blood Count 8.6 x10^3/uL (4.0-11.0) Red Blood Count 3.48 x10^6/uL (3.50-5.40) Hemoglobin 10.6 g/dL (12.0-15.5) Hematocrit 31.6 % (36.0-47.0) Mean Corpuscular Volume 91 fL (79-100) Mean Corpuscular Hemoglobin 31 pg (25-35) Mean Corpuscular Hemoglobin Concent 34 g/dL (31-37) Red Cell Distribution Width 14.8 % (11.5-14.5) Platelet Count 229 x10^3/uL (140-400) Neutrophils (%) (Auto) 50 % (31-73) Lymphocytes (%) (Auto) 39 % (24-48) Monocytes (%) (Auto) 10 % (0-9) Eosinophils (%) (Auto) 0 % (0-3) Basophils (%) (Auto) 1 % (0-3) Neutrophils # (Auto) 4.3 x10^3uL (1.8-7.7) Lymphocytes # (Auto) 3.3 x10^3/uL (1.0-4.8) Monocytes # (Auto) 0.9 x10^3/uL (0.0-1.1) Eosinophils # (Auto) 0.0 x10^3/uL (0.0-0.7) Basophils # (Auto) 0.1 x10^3/uL (0.0-0.2) Sodium Level 137 mmol/L (136-145) Potassium Level 4.7 mmol/L (3.5-5.1) Chloride Level 101 mmol/L (98-107) Carbon Dioxide Level 20 mmol/L (21-32) Anion Gap 16 (6-14) Blood Urea Nitrogen 26 mg/dL (7-20) Creatinine 2.2 mg/dL (0.6-1.0) Estimated GFR (Cockcroft-Gault) 26.7 BUN/Creatinine Ratio 12 (6-20) Glucose Level 135 mg/dL (70-99) Calcium Level 9.7 mg/dL (8.5-10.1) Ionized Calcium 1.27 mmol/L (1.13-1.32) Iron Level 62 ug/dL (50-170) Total Iron Binding Capacity 313 ug/dL (250-450) Iron Saturation 20 % (15-34) Total Bilirubin 0.3 mg/dL (0.2-1.0) Aspartate Amino Transf (AST/SGOT) 17 U/L (15-37) Alanine Aminotransferase (ALT/SGPT) 12 U/L (14-59) Alkaline Phosphatase 47 U/L (46-116) Total Protein 7.6 g/dL (6.4-8.2) Albumin 3.9 g/dL (3.4-5.0) Albumin/Globulin Ratio 1.1 (1.0-1.7) Test 04/20/18 11:35 04/20/18 15:45 04/20/18 16:44 04/20/18 20:45 Glucose (Fingerstick) 149 mg/dL (70-99) 152 mg/dL (70-99) 129 mg/dL (70-99) Urine Opiates Screen Pos (NEG) Urine Methadone Screen Neg (NEG) Urine Barbiturates Neg (NEG) Urine Phencyclidine Screen Neg (NEG) Urine Amphetamine/Methamphetamine Neg (NEG) Urine Benzodiazepines Screen Pos (NEG) Urine Cocaine Screen Neg (NEG) Urine Cannabinoids Screen Neg (NEG) Urine Ethyl Alcohol Neg (NEG) Test 04/21/18 04:15 04/21/18 08:05 04/21/18 10:40 Sodium Level 139 mmol/L (136-145) Potassium Level 4.0 mmol/L (3.5-5.1) Chloride Level 102 mmol/L (98-107) Carbon Dioxide Level 20 mmol/L (21-32) Anion Gap 17 (6-14) Blood Urea Nitrogen 13 mg/dL (7-20) Creatinine 1.4 mg/dL (0.6-1.0) Estimated GFR (Cockcroft-Gault) 45.0 Glucose Level 171 mg/dL (70-99) Calcium Level 9.6 mg/dL (8.5-10.1) Triglycerides Level 70 mg/dL (0-150) Cholesterol Level 116 mg/dL (0-200) LDL Cholesterol, Calculated 47 mg/dL (0-100) VLDL Cholesterol, Calculated 14 mg/dL (0-40) Non-HDL Cholesterol Calculated 61 mg/dL (0-129) HDL Cholesterol 55 mg/dL (40-60) Cholesterol/HDL Ratio 2.1 Thyroid Stimulating Hormone (TSH) 0.753 uIU/mL (0.358-3.74) Troponin I Quantitative < 0.017 ng/mL (0.000-0.055) < 0.017 ng/mL (0.000-0.055) Laboratory Tests Test 04/20/18 15:45 04/20/18 16:44 04/20/18 20:45 04/21/18 04:15 Urine Opiates Screen Pos (NEG) Urine Methadone Screen Neg (NEG) Urine Barbiturates Neg (NEG) Urine Phencyclidine Screen Neg (NEG) Urine Amphetamine/Methamphetamine Neg (NEG) Urine Benzodiazepines Screen Pos (NEG) Urine Cocaine Screen Neg (NEG) Urine Cannabinoids Screen Neg (NEG) Urine Ethyl Alcohol Neg (NEG) Glucose (Fingerstick) 152 mg/dL (70-99) 129 mg/dL (70-99) Sodium Level 139 mmol/L (136-145) Potassium Level 4.0 mmol/L (3.5-5.1) Chloride Level 102 mmol/L (98-107) Carbon Dioxide Level 20 mmol/L (21-32) Anion Gap 17 (6-14) Blood Urea Nitrogen 13 mg/dL (7-20) Creatinine 1.4 mg/dL (0.6-1.0) Estimated GFR (Cockcroft-Gault) 45.0 Glucose Level 171 mg/dL (70-99) Calcium Level 9.6 mg/dL (8.5-10.1) Triglycerides Level 70 mg/dL (0-150) Cholesterol Level 116 mg/dL (0-200) LDL Cholesterol, Calculated 47 mg/dL (0-100) VLDL Cholesterol, Calculated 14 mg/dL (0-40) Non-HDL Cholesterol Calculated 61 mg/dL (0-129) HDL Cholesterol 55 mg/dL (40-60) Cholesterol/HDL Ratio 2.1 Thyroid Stimulating Hormone (TSH) 0.753 uIU/mL (0.358-3.74) Test 04/21/18 08:05 04/21/18 10:40 Troponin I Quantitative < 0.017 ng/mL (0.000-0.055) < 0.017 ng/mL (0.000-0.055) Vitals/I & O Vital Sign - Last 24 Hours 04/20/18 04/20/18 04/20/18 04/20/18 15:00 17:19 18:24 19:00 Temp 99.0 99.1 99.0 99.1 Pulse 71 65 Resp 17 18 B/P (MAP) 117/72 (87) 124/69 (87) Pulse Ox 99 100 100 99 O2 Delivery Room Air Room Air Room Air Room Air 04/20/18 04/20/18 04/20/18 04/20/18 20:00 20:40 20:44 22:52 Temp 99.1 99.1 Pulse 65 102 Resp 18 B/P (MAP) 124/69 128/87 (101) Pulse Ox 99 O2 Delivery Room Air Room Air Room Air 04/21/18 04/21/18 04/21/18 04/21/18 01:53 03:01 04:53 07:00 Temp 99.8 98.7 99.8 98.7 Pulse 99 144 Resp 18 18 B/P (MAP) 144/85 (104) 146/93 (110) Pulse Ox 99 92 92 100 O2 Delivery Room Air Room Air Room Air Room Air 04/21/18 04/21/18 04/21/18 04/21/18 07:35 07:35 07:36 09:19 Pulse 92 144 B/P (MAP) 151/89 (109) 146/93 O2 Delivery Room Air Room Air 04/21/18 04/21/18 04/21/18 04/21/18 09:19 11:00 12:17 13:14 Temp 99.0 99.0 Pulse 144 101 Resp 20 B/P (MAP) 146/93 135/85 (102) Pulse Ox 100 O2 Delivery Room Air Room Air Room Air 04/21/18 13:53 O2 Delivery Room Air Intake and Output 04/20/18 04/20/18 04/21/18 15:00 23:00 07:00 Intake Total 280 ml 200 ml Balance 280 ml 200 ml Problem List Problems Medical Problems: (1) Gastroparesis Status: Acute (2) Headache Status: Acute (3) Renal failure Status: Acute Assessment Gastroparesis, marginally better. Infectious process (viral) as well? Plan of Care Note Continue IV PPI, prokinetic. CLARIBEL CAPUTO MD Apr 21, 2018 15:01
--- NOTE | 2018-04-21 15:40 | NUR ---
SW following pt. PT/OT on hold due to medical reason. Will continue to follow.
--- NOTE | 2018-04-21 15:55 | PDOC ---
PROGRESS NOTES Assessment Assessment Severe headaches. Right temporal lobe cavernous malformation. UTI. Abdominal pain, acute on chronic. Vomiting. UTI. Chronic narcotic use for more than 10 years. Narcotic dependence. DM HTN. HLD. Hypothyroidism. GERD. RECOMMENDATIONS/PLAN: Pain control. Suggest taper off Narcotics. Consulted GI for chronic abdominal pain. Consulted NS for cavernous malformation. Treat medical diseases. HISTORY OF THE PRESENT ILLNESS: 72-y-old AA female patient with above medical diseases and chronic Narcotic use/ abuse has been having headaches about 5 times a month, but her headaches are increased this time with vomiting to come to the ER of [facility]. She stated her headaches were at frontal head and occipital head as well we dull pain rated 8-9 /10. No focalized sensory or motor deficits noted. PAST MEDICAL HISTORY: Please see above. PAST SURGERY HISTORY: Cataract surgery. Cholecystectomy Hysterectomy. ALLERGY: Unknown MEDICATIONS: Refer to [facility] FAMILY HISTORY: Non contributory. SOCIAL HISTORY: Lives with her daughter at home. Denies current smoking, drinking, and illicit drug use. REVIEW OF SYSTEMS: Constitutional: Obesity. Head: No traumatic brain or head injury. Skin: No edema, or rash. Ear: No infection. Eyes: No vision loss or color blindness. Nose: No bleeding or purulent discharges. Hearing: No hearing decrease. Neck: No injury. Breast: No history of cancer, masses,or discharges. Cardiac: HTN, HLD. Pulmonary: No OPD. GI: GERD. Urinary/genital: UTI. Endocrinologic: Diabetes Mellitus, hypothyroidism, obesity. Skeletomuscular: No muscular atrophy, deformity. Neurological: see HP. Psychiatric: Chronic narcotics use/abuse. Otherwise, not [id number] review of systems. PHYSICAL EXAMINATION: General appearance is in subacute distress. HEENT: Normocephalic and nontraumatic. Eyes, nose, ears, and throat are unremarkable. Neck is supple. No lymphadenopathy. No bruits are heard over the carotid artery. No crepitus. Cardiovascular: S1, S2, regular rate and rhythm. Pulmonary: Clear to auscultation bilaterally. Abdomen: Bowel sounds are positive. Abdomen is soft, nontender, and nondistended. Extremities: No rash, lesions, or edema. No restriction of range of motion NEUROLOGICAL EXAMINATION: Awake. Oriented to time, place and person. PERRL. EOMI. CN: no focal findings. Muscle tone: within normal. Muscle strength: 5 DTR: 2 Plantar reflex: Flexor response bilaterally Gait: not examined in bed. Sensory exam: no abnormal findings. No acute cerebellar signs elicited. F-T-N test fine. Objective Objective Vital Signs Date Time Temp Pulse Resp B/P (MAP) Pulse Ox O2 Delivery O2 Flow Rate FiO2 04/21/18 15:36 Room Air 04/21/18 11:00 99.0 101 20 135/85 (102) 100 99.0 Intake and Output 04/21/18 07:00 Intake Total 480 ml Balance 480 ml Intake Oral 480 ml # Voids 7 Vitals Signs Vitals VS - Last 72 Hours, by Label Date Time Temp Pulse Resp B/P (MAP) Pulse Ox O2 Delivery O2 Flow Rate FiO2 04/21/18 15:36 Room Air 04/21/18 15:35 Room Air 04/21/18 13:53 Room Air 04/21/18 13:14 Room Air 04/21/18 12:17 Room Air 04/21/18 11:00 99.0 101 20 135/85 (102) 100 Room Air 99.0 04/21/18 09:19 144 146/93 04/21/18 09:19 144 146/93 04/21/18 07:36 92 151/89 (109) 04/21/18 07:35 Room Air 04/21/18 07:35 Room Air 04/21/18 07:00 98.7 144 18 146/93 (110) 100 Room Air 98.7 04/21/18 04:53 92 Room Air 04/21/18 03:01 99.8 99 18 144/85 (104) 92 Room Air 99.8 04/21/18 01:53 99 Room Air 04/20/18 22:52 99.1 102 18 128/87 (101) 99 Room Air 99.1 04/20/18 20:44 65 124/69 04/20/18 20:40 Room Air 04/20/18 20:00 Room Air 04/20/18 19:00 99.1 65 18 124/69 (87) 99 Room Air 99.1 04/20/18 18:24 100 04/20/18 17:19 100 Room Air 04/20/18 15:00 99.0 71 17 117/72 (87) 99 Room Air 99.0 04/20/18 11:50 100 Room Air 04/20/18 11:20 61 133/66 04/20/18 11:00 98.3 61 17 133/66 (88) 100 Room Air 98.3 04/20/18 10:30 100 Room Air 04/20/18 09:00 61 133/66 04/20/18 08:00 Room Air 04/20/18 07:00 98.9 75 17 139/85 (103) 100 Room Air 98.9 Laboratory Laboratory Laboratory Tests Test 04/20/18 16:44 04/20/18 20:45 04/21/18 04:15 04/21/18 08:05 Glucose (Fingerstick) 152 mg/dL (70-99) 129 mg/dL (70-99) Sodium Level 139 mmol/L (136-145) Potassium Level 4.0 mmol/L (3.5-5.1) Chloride Level 102 mmol/L (98-107) Carbon Dioxide Level 20 mmol/L (21-32) Anion Gap 17 (6-14) Blood Urea Nitrogen 13 mg/dL (7-20) Creatinine 1.4 mg/dL (0.6-1.0) Estimated GFR (Cockcroft-Gault) 45.0 Glucose Level 171 mg/dL (70-99) Calcium Level 9.6 mg/dL (8.5-10.1) Triglycerides Level 70 mg/dL (0-150) Cholesterol Level 116 mg/dL (0-200) LDL Cholesterol, Calculated 47 mg/dL (0-100) VLDL Cholesterol, Calculated 14 mg/dL (0-40) Non-HDL Cholesterol Calculated 61 mg/dL (0-129) HDL Cholesterol 55 mg/dL (40-60) Cholesterol/HDL Ratio 2.1 Thyroid Stimulating Hormone (TSH) 0.753 uIU/mL (0.358-3.74) Troponin I Quantitative < 0.017 ng/mL (0.000-0.055) Test 04/21/18 10:40 Troponin I Quantitative < 0.017 ng/mL (0.000-0.055) Medication Medications Current Medications Lactobacillus Rhamnosus (Culturelle) 1 cap BID PO Last administered on at 09:19; Start 04/20/18 at 21:00 Morphine Sulfate (Morphine Sulfate) 2 mg PRN Q2HR PRN IV PAIN Last administered on 04/21/18at 15:35; Start 04/20/18 at 17:45 Pantoprazole Sodium (PROTONIX VIAL for IV PUSH) 40 mg DAILYAC IVP Last administered on 04/21/18at 07:35; Start 04/21/18 at 07:30 Comment Review of Relevant I have reviewed the following items mert (where applicable) has been applied. KAMRYN CALLEJAS MD Apr 21, 2018 15:55
--- NOTE | 2018-04-21 16:33 | CARD ---
MR#: [id number] Date of Study: 04/21/2018 Ordering Physician: SWATHI OH, Referring Physician: LINDA CENTENO Tech: Rachel Cain APPROVED REPORT EXAM: Two-dimensional and M-mode echocardiogram with Doppler and color Doppler. INDICATION Chest Pain RISK FACTORS Diabetes 2D DIMENSIONS RVDd2.4 (2.9-3.5cm)Left Atrium(2D)2.6 (1.6-4.0cm) IVSd1.2 (0.7-1.1cm)Aortic Root(2D)2.9 (2.0-3.7cm) LVDd4.1 (3.9-5.9cm)LVOT Diameter2.2 (1.8-2.4cm) PWd1.2 (0.7-1.1cm)LVDs2.0 (2.5-4.0cm) FS (%) 50.9 %SV61.8 ml Aortic Valve AoV Peak Art.121.6cm/sAoV VTI17.3cm AO Peak GR.5.9mmHgLVOT Peak Rat.88.0cm/s LVOT VTI 14.13cmAO Mean GR.3mmHg STACY (VMAX)2.09sf8OBP (VTI)3.06cm2 Mitral Valve MV E Mobifyhr45.2cm/sMV DECEL [id number] MV A Fashmtdj32.8cm/sMV [id number] E/A Ratio0.9MVA (PHT)3.07cm2 TDI E/Lateral E'6.8E/Medial E'8.3 Tricuspid Valve RAP [id number] Peak Gr.34mmHg [id number] Pulmonary Vein S1 Pwynpfpn44.4cm/sD2 Disrscye90.4cm/s PVa [id number] LEFT VENTRICLE The left ventricle is normal size. There is mild concentric left ventricular hypertrophy. The left ve ntricular systolic function is normal and the ejection fraction is within normal range. The Ejection Fraction is 55-60%. There is normal LV segmental wall motion. Transmitral Doppler flow pattern is Gra de I-abnormal relaxation pattern. RIGHT VENTRICLE The right ventricle is borderline dilated. There is normal right ventricular wall thickness. The righ t ventricular systolic function is normal. ATRIA The left atrium size is normal. The right atrium size is normal. The interatrial septum is intact wit h no evidence for an atrial septal defect or patent foramen ovale as noted on 2-D or Doppler imaging. AORTIC VALVE The aortic valve is not visualized. Doppler and Color Flow revealed no significant aortic regurgitati on. There is no significant aortic valvular stenosis. MITRAL VALVE The mitral valve is thickened but opens well. There is no evidence of mitral valve prolapse. There is no mitral valve stenosis. Doppler and Color-flow revealed trace mitral regurgitation. TRICUSPID VALVE The tricuspid valve is normal in structure and function. Doppler and Color Flow revealed mild to mode rate tricuspid regurgitation with an estimated PAP of 37 mmHg. There is no tricuspid valve stenosis. PULMONIC VALVE The pulmonic valve is not well visualized. Doppler and Color Flow revealed trace pulmonic valvular re gurgitation. GREAT VESSELS The aortic root is normal in size. The IVC is normal in size and collapses >50% with inspiration. PERICARDIAL EFFUSION There is no evidence of significant pericardial effusion. Critical Notification Critical Value: No <Conclusion> The left ventricle is normal size. The left ventricular systolic function is normal and the ejection fraction is within normal range. The Ejection Fraction is 55-60%. There is mild concentric left ventricular hypertrophy. There is no significant aortic valvular stenosis. Doppler and Color Flow revealed no significant aortic regurgitation. Doppler and Color-flow revealed trace mitral regurgitation. Doppler and Color Flow revealed mild to moderate tricuspid regurgitation with an estimated PAP of 37 mmHg. Signed by : Denzel Hernandez MD Electronically Approved : 04/21/2018 16:32:41
[2018-04-21] MEDS: SIMVASTATIN 20 MG TABLET PO SCH (19:54)
[2018-04-21] MEDS: ZOLPIDEM 5 MG TABLET. PO PRN (19:54)
[2018-04-21] MEDS: traZODone 50 MG TABLET. PO SCH (19:54)
[2018-04-21] MEDS: cefTRIAXone IV Push 1 GM VIAL. IVP SCH (19:55)
[2018-04-21] MEDS: INSULIN GLARGINE 300 UNITS/3 ML INSULN.PEN. SQ SCH (19:57)
[2018-04-22] VITALS (7 sets, daily range): BP systolic 123–145; BP diastolic 77–89
[2018-04-22] MEDS: HYDROcodone/APAP 5/325MG 1 TAB TABLET PO PRN ×2 (02:52→16:53)
[2018-04-22] MEDS: ONDANSETRON PF 4 MG/2 ML VIAL. IV PRN (04:03)
[2018-04-22] MEDS: LEVOTHYROXINE 100 MCG TABLET PO SCH (04:03)
[2018-04-22] MEDS: MORPHINE SULFATE 4 MG/ML VIAL. IV PRN ×3 (07:10→19:06)
[2018-04-22] MEDS: METOCLOPRAMIDE HCL 10 MG/2 ML VIAL. IV SCH ×4 (07:10→21:18)
[2018-04-22 07:32] LABS: CALCIUM 9.8 mg/dL (8.5-10.1); CREATININE 1.4 mg/dL (0.6-1.0); POTASSIUM 3.3 mmol/L (3.5-5.1)
[2018-04-22] MEDS: PANTOPRAZOLE IV PUSH 40 MG VIAL. IVP SCH (08:14)
[2018-04-22] MEDS: FERROUS SULFATE 325 MG TABLET. PO SCH (08:15)
[2018-04-22] MEDS: SUCRALFATE 1 GM TABLET. PO SCH ×4 (08:15→21:17)
[2018-04-22] MEDS: LACTOBACILLUS RHAMNOSUS GG 1 CAPSULE. PO SCH ×2 (08:16→21:17)
[2018-04-22] MEDS: DOCUSATE SODIUM 100 MG CAPSULE. PO SCH (08:16)
[2018-04-22] MEDS: POLYETHYLENE GLYCOL 3350 17 GM PACKET. PO SCH (08:32)
[2018-04-22] MEDS: amLODIPine BESYLATE 10 MG TABLET PO SCH (08:38)
[2018-04-22] MEDS: METOPROLOL SUCC 24HR ER 100 MG TAB.ER.24H. PO SCH (08:39)
[2018-04-22] MEDS: HEPARIN for SUB-Q USE 5,000 UNIT/ML VIAL. SQ SCH ×2 (08:41→21:42)
--- NOTE | 2018-04-22 11:39 | PDOC ---
G I PROGRESS NOTE Subjective Says not better. Emesis basin nearby. Physical Exam Lungs clear. RRR Abdomen soft, not tender. Review of Relevant I have reviewed the following items mert (where applicable) has been applied. Labs Laboratory Tests Test 04/20/18 15:45 04/20/18 16:44 04/20/18 20:45 04/21/18 04:15 Urine Opiates Screen Pos (NEG) Urine Methadone Screen Neg (NEG) Urine Barbiturates Neg (NEG) Urine Phencyclidine Screen Neg (NEG) Urine Amphetamine/Methamphetamine Neg (NEG) Urine Benzodiazepines Screen Pos (NEG) Urine Cocaine Screen Neg (NEG) Urine Cannabinoids Screen Neg (NEG) Urine Ethyl Alcohol Neg (NEG) Glucose (Fingerstick) 152 mg/dL (70-99) 129 mg/dL (70-99) Sodium Level 139 mmol/L (136-145) Potassium Level 4.0 mmol/L (3.5-5.1) Chloride Level 102 mmol/L (98-107) Carbon Dioxide Level 20 mmol/L (21-32) Anion Gap 17 (6-14) Blood Urea Nitrogen 13 mg/dL (7-20) Creatinine 1.4 mg/dL (0.6-1.0) Estimated GFR (Cockcroft-Gault) 45.0 Glucose Level 171 mg/dL (70-99) Calcium Level 9.6 mg/dL (8.5-10.1) Triglycerides Level 70 mg/dL (0-150) Cholesterol Level 116 mg/dL (0-200) LDL Cholesterol, Calculated 47 mg/dL (0-100) VLDL Cholesterol, Calculated 14 mg/dL (0-40) Non-HDL Cholesterol Calculated 61 mg/dL (0-129) HDL Cholesterol 55 mg/dL (40-60) Cholesterol/HDL Ratio 2.1 Thyroid Stimulating Hormone (TSH) 0.753 uIU/mL (0.358-3.74) Test 04/21/18 08:05 04/21/18 10:40 04/21/18 15:52 04/21/18 19:52 Troponin I Quantitative < 0.017 ng/mL (0.000-0.055) < 0.017 ng/mL (0.000-0.055) Glucose (Fingerstick) 165 mg/dL (70-99) 199 mg/dL (70-99) Test 04/22/18 05:34 04/22/18 08:21 04/22/18 11:17 Sodium Level 138 mmol/L (136-145) Potassium Level 3.3 mmol/L (3.5-5.1) Chloride Level 101 mmol/L (98-107) Carbon Dioxide Level 21 mmol/L (21-32) Anion Gap 16 (6-14) Blood Urea Nitrogen 10 mg/dL (7-20) Creatinine 1.4 mg/dL (0.6-1.0) Estimated GFR (Cockcroft-Gault) 45.0 Glucose Level 173 mg/dL (70-99) Calcium Level 9.8 mg/dL (8.5-10.1) Glucose (Fingerstick) 167 mg/dL (70-99) 176 mg/dL (70-99) Laboratory Tests Test 04/21/18 15:52 04/21/18 19:52 04/22/18 05:34 04/22/18 08:21 Glucose (Fingerstick) 165 mg/dL (70-99) 199 mg/dL (70-99) 167 mg/dL (70-99) Sodium Level 138 mmol/L (136-145) Potassium Level 3.3 mmol/L (3.5-5.1) Chloride Level 101 mmol/L (98-107) Carbon Dioxide Level 21 mmol/L (21-32) Anion Gap 16 (6-14) Blood Urea Nitrogen 10 mg/dL (7-20) Creatinine 1.4 mg/dL (0.6-1.0) Estimated GFR (Cockcroft-Gault) 45.0 Glucose Level 173 mg/dL (70-99) Calcium Level 9.8 mg/dL (8.5-10.1) Test 04/22/18 11:17 Glucose (Fingerstick) 176 mg/dL (70-99) Microbiology 04/19/18 Urine Culture - Final, Complete 04/19/18 Urine Culture Result 1 (CABRERA) - Final, Complete Vitals/I & O Vital Sign - Last 24 Hours 04/21/18 04/21/18 04/21/18 04/21/18 12:17 13:53 15:00 15:35 Temp 99.4 99.4 Pulse 77 Resp 18 B/P (MAP) 141/83 (102) Pulse Ox 99 O2 Delivery Room Air Room Air Room Air Room Air 04/21/18 04/21/18 04/21/18 04/21/18 19:00 19:54 20:00 23:00 Temp 99.1 98.7 99.1 98.7 Pulse 96 96 94 Resp 18 18 B/P (MAP) 150/88 (108) 150/88 143/87 (105) Pulse Ox 98 97 O2 Delivery Room Air Room Air Room Air 04/22/18 04/22/18 04/22/18 04/22/18 02:52 03:00 03:59 07:00 Temp 98.7 98.9 98.7 98.9 Pulse 90 95 Resp 18 17 B/P (MAP) 130/88 (102) 124/84 (97) Pulse Ox 96 97 O2 Delivery Room Air Room Air Room Air Room Air 04/22/18 04/22/18 04/22/18 04/22/18 07:10 07:40 08:38 08:39 Pulse 95 95 Resp 20 B/P (MAP) 124/84 124/84 Pulse Ox 96 O2 Delivery Room Air Room Air Intake and Output 04/21/18 04/21/18 04/22/18 14:59 22:59 06:59 Intake Total 360 ml 160 ml Balance 360 ml 160 ml Problem List Problems Medical Problems: (1) Gastroparesis Status: Acute (2) Headache Status: Acute (3) Renal failure Status: Acute Assessment Gastroparesis; superimposed viral syndrome? Plan of Care Note Continue general support, IVF's, PPI, prokinetic. CLARIBEL CAPUTO MD Apr 22, 2018 11:39
--- NOTE | 2018-04-22 12:09 | PDOC ---
Renal-Progress Notes Subjective Notes Notes NONE History of Present Illness Hx of present illness STABLE Vitals Vitals Vital Signs Date Time Temp Pulse Resp B/P (MAP) Pulse Ox O2 Delivery O2 Flow Rate FiO2 04/22/18 08:39 95 124/84 04/22/18 07:40 20 96 Room Air 04/22/18 07:00 98.9 98.9 Weight Weight [ ] I.O. Intake and Output Intake and Output 04/22/18 07:00 Intake Total 520 ml Balance 520 ml Intake Oral 520 ml # Voids 5 Labs Labs Laboratory Tests Test 04/21/18 15:52 04/21/18 19:52 04/22/18 05:34 04/22/18 08:21 Glucose (Fingerstick) 165 mg/dL (70-99) 199 mg/dL (70-99) 167 mg/dL (70-99) Sodium Level 138 mmol/L (136-145) Potassium Level 3.3 mmol/L (3.5-5.1) Chloride Level 101 mmol/L (98-107) Carbon Dioxide Level 21 mmol/L (21-32) Anion Gap 16 (6-14) Blood Urea Nitrogen 10 mg/dL (7-20) Creatinine 1.4 mg/dL (0.6-1.0) Estimated GFR (Cockcroft-Gault) 45.0 Glucose Level 173 mg/dL (70-99) Calcium Level 9.8 mg/dL (8.5-10.1) Test 04/22/18 11:17 Glucose (Fingerstick) 176 mg/dL (70-99) Micro Micro Microbiology 04/19/18 Urine Culture - Final, Complete 04/19/18 Urine Culture Result 1 (CABRERA) - Final, Complete Review of Systems Constitutional: yes: alert, oriented Ears/Nose/Throat: Yes: no symptom reported Eyes: Yes: no symptom reported Pulmonary: Yes no symptom reported Cardiovascular: Yes no symptom reported Gastrointestional: Yes: nausea Genitourinary: Yes: no symptom reported Musculoskeletal: Yes: no symptom reported Skin: Yes no symptom reported Psychiatric/Neurological: Yes: no symptom reported Endocrine: Yes: no symptom reported Physical Exam General Appearance: no apparent distress Skin: warm Respiratory: decreased breath sounds Heart: S1S2 Abdomen: soft, bowel sounds present Genitourinary: bladder flat Extremities: pulses present Neurology: alert Musculoskeletal: Osteoarthritis Assessment Assessment MP PAM WITH CR IMPROVED TO 1.4-NO CKD DEHYDRATION URINARY TRACT INFECTION GASTROPARESIS MILD HYPOKALEMIA PLAN OFF IVF'S ENC PO ANTIBIOTICS HOLD PRN IBUPROFEN HOLD ARB AND HCTZ FROM HOME MED LIST CONT TO CELEBREX WILL FOLLOW CLAYTON LAMBERT MD Apr 22, 2018 12:09
--- NOTE | 2018-04-22 18:27 | PDOC ---
PROGRESS NOTES Assessment Assessment Severe headaches, improved. Right temporal lobe cavernous malformation. UTI. Abdominal pain, acute on chronic. Vomiting. UTI. Chronic narcotic use for more than 10 years. Narcotic dependence. DM HTN. HLD. Hypothyroidism. GERD. RECOMMENDATIONS/PLAN: Pain control. Suggest taper off Narcotics. Consulted GI for chronic abdominal pain. Consulted NS for cavernous malformation. Treat medical diseases. Consulted NS for right temporal lobe cavernous malformation and no intervention. HISTORY OF THE PRESENT ILLNESS: 72-y-old AA female patient with above medical diseases and chronic Narcotic use/ abuse has been having headaches about 5 times a month, but her headaches are increased this time with vomiting to come to the ER of [facility]. She stated her headaches were at frontal head and occipital head as well we dull pain rated 8-9 /10. No focalized sensory or motor deficits noted. PAST MEDICAL HISTORY: Please see above. PAST SURGERY HISTORY: Cataract surgery. Cholecystectomy Hysterectomy. ALLERGY: Unknown MEDICATIONS: Refer to [facility] FAMILY HISTORY: Non contributory. SOCIAL HISTORY: Lives with her daughter at home. Denies current smoking, drinking, and illicit drug use. REVIEW OF SYSTEMS: Constitutional: Obesity. Head: No traumatic brain or head injury. Skin: No edema, or rash. Ear: No infection. Eyes: No vision loss or color blindness. Nose: No bleeding or purulent discharges. Hearing: No hearing decrease. Neck: No injury. Breast: No history of cancer, masses,or discharges. Cardiac: HTN, HLD. Pulmonary: No OPD. GI: GERD. Urinary/genital: UTI. Endocrinologic: Diabetes Mellitus, hypothyroidism, obesity. Skeletomuscular: No muscular atrophy, deformity. Neurological: see HP. Psychiatric: Chronic narcotics use/abuse. Otherwise, not [id number] review of systems. PHYSICAL EXAMINATION: General appearance is in subacute distress. HEENT: Normocephalic and nontraumatic. Eyes, nose, ears, and throat are unremarkable. Neck is supple. No lymphadenopathy. No bruits are heard over the carotid artery. No crepitus. Cardiovascular: S1, S2, regular rate and rhythm. Pulmonary: Clear to auscultation bilaterally. Abdomen: Bowel sounds are positive. Abdomen is soft, nontender, and nondistended. Extremities: No rash, lesions, or edema. No restriction of range of motion NEUROLOGICAL EXAMINATION: Awake. Oriented to time, place and person. PERRL. EOMI. CN: no focal findings. Muscle tone: within normal. Muscle strength: 5 DTR: 2 Plantar reflex: Flexor response bilaterally Gait: not examined in bed. Sensory exam: no abnormal findings. No acute cerebellar signs elicited. F-T-N test fine. Objective Objective Vital Signs Date Time Temp Pulse Resp B/P (MAP) Pulse Ox O2 Delivery O2 Flow Rate FiO2 04/22/18 17:53 20 97 Room Air 04/22/18 15:00 99.8 111 132/88 (103) 99.8 Intake and Output 04/22/18 07:00 Intake Total 520 ml Balance 520 ml Intake Oral 520 ml # Voids 5 Vitals Signs Vitals VS - Last 72 Hours, by Label Date Time Temp Pulse Resp B/P (MAP) Pulse Ox O2 Delivery O2 Flow Rate FiO2 04/22/18 17:53 20 97 Room Air 04/22/18 16:53 20 97 Room Air 04/22/18 15:00 99.8 111 18 132/88 (103) 95 99.8 04/22/18 13:43 98.9 107 17 123/89 (100) 97 98.9 04/22/18 12:15 20 97 Room Air 04/22/18 11:45 20 97 Room Air 04/22/18 11:00 98.9 107 17 123/89 (100) 97 Room Air 98.9 04/22/18 08:39 95 124/84 04/22/18 08:38 95 124/84 04/22/18 08:00 Room Air 04/22/18 07:10 Room Air 04/22/18 07:00 98.9 95 17 124/84 (97) 97 Room Air 98.9 04/22/18 03:00 98.7 90 18 130/88 (102) 96 Room Air 98.7 04/22/18 02:52 Room Air 04/21/18 23:00 98.7 94 18 143/87 (105) 97 Room Air 98.7 04/21/18 20:00 Room Air 04/21/18 19:54 96 150/88 04/21/18 19:00 99.1 96 18 150/88 (108) 98 Room Air 99.1 04/21/18 15:35 Room Air 04/21/18 15:00 99.4 77 18 141/83 (102) 99 Room Air 99.4 04/21/18 13:53 Room Air 04/21/18 12:17 Room Air 04/21/18 11:00 99.0 101 20 135/85 (102) 100 Room Air 99.0 04/21/18 09:19 144 146/93 04/21/18 09:19 144 146/93 04/21/18 07:36 92 151/89 (109) 04/21/18 07:35 Room Air 04/21/18 07:35 Room Air 04/21/18 07:00 98.7 144 18 146/93 (110) 100 Room Air 98.7 Laboratory Laboratory Laboratory Tests Test 04/21/18 19:52 04/22/18 05:34 04/22/18 08:21 04/22/18 11:17 Glucose (Fingerstick) 199 mg/dL (70-99) 167 mg/dL (70-99) 176 mg/dL (70-99) Sodium Level 138 mmol/L (136-145) Potassium Level 3.3 mmol/L (3.5-5.1) Chloride Level 101 mmol/L (98-107) Carbon Dioxide Level 21 mmol/L (21-32) Anion Gap 16 (6-14) Blood Urea Nitrogen 10 mg/dL (7-20) Creatinine 1.4 mg/dL (0.6-1.0) Estimated GFR (Cockcroft-Gault) 45.0 Glucose Level 173 mg/dL (70-99) Calcium Level 9.8 mg/dL (8.5-10.1) Test 04/22/18 17:10 Glucose (Fingerstick) 143 mg/dL (70-99) Microbiology 04/19/18 Urine Culture - Final, Complete 04/19/18 Urine Culture Result 1 (CABRERA) - Final, Complete Medication Medications Current Medications Amlodipine Besylate (Norvasc) 10 mg DAILY PO Last administered on 04/22/18at 08: 38; Start 04/22/18 at 09:00 Comment Review of Relevant I have reviewed the following items mert (where applicable) has been applied. KAMRYN CALLEJAS MD Apr 22, 2018 18:27
--- NOTE | 2018-04-22 19:11 | NUR ---
Received call from Johnna NESBITT with Dr. Warner.She stated brain MRI was looked at and the cavernous malformation on MRI is a condition pt has had for many years and condition is unchanged and there is nothing they can do for this condition at this time. Yarelis Martínez and [place] notified and are okay with cancellation of consult with Dr Warner.
[2018-04-22] MEDS: SIMVASTATIN 20 MG TABLET PO SCH (21:17)
[2018-04-22] MEDS: traZODone 50 MG TABLET. PO SCH (21:17)
[2018-04-22] MEDS: cefTRIAXone IV Push 1 GM VIAL. IVP SCH (21:18)
[2018-04-22] MEDS: ZOLPIDEM 5 MG TABLET. PO PRN (21:23)
[2018-04-22] MEDS: INSULIN GLARGINE 300 UNITS/3 ML INSULN.PEN. SQ SCH (21:42)
--- NOTE | 2018-04-22 22:29 | PN ---
DATE: 04/22/2018 SUBJECTIVE: 1. The patient has on and off nausea and emesis. 2. Chest pain is most likely GERD in nature, Cardiology was consulted yesterday because of chest pain. She had a rapid response, but EKG and troponin is reassuring. 3. 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 4. Headache is much better. 5. Slow progress. OBJECTIVE: GENERAL: Awake, alert, oriented x 3, not in acute respiratory distress. HEENT: Unremarkable. LUNGS: Clear to auscultation bilaterally. HEART: Normal rate and rhythm. No murmurs, rubs or gallops. ABDOMEN: Soft, obese, nontender, hypoactive bowel sounds. GENITALIA: Appropriate for age. EXTREMITIES: Negative edema. Pulses full and equal. No pallor or cyanosis of nailbed. ASSESSMENT AND PLAN: 1. Known gastroparesis -- slow progress. 2. Chest pain, gastroesophageal reflux disease in nature. 3. Generalized weakness -- she is agreeable to SNU -- has been at [facility] about 3 months ago for 3 weeks -- social work screen for that. I have discussed. 4. Renal failure/electrolyte abnormalities has been corrected or at least there is none currently. 5. CPM. Discussed with RN at bedside. MARIBEL MARIEE MD DR: /nts JOB#: [id number] / [id number]
[2018-04-23] MEDS: HYDROcodone/APAP 5/325MG 1 TAB TABLET PO PRN ×2 (01:38→14:30)
[2018-04-23 03:08] VITALS: BP 137/87
[2018-04-23] MEDS: LEVOTHYROXINE 100 MCG TABLET PO SCH (05:28)
[2018-04-23] MEDS: SUCRALFATE 1 GM TABLET. PO SCH ×4 (06:26→21:00)
[2018-04-23] MEDS: METOCLOPRAMIDE HCL 10 MG/2 ML VIAL. IV SCH ×4 (06:26→21:00)
[2018-04-23] MEDS: PANTOPRAZOLE IV PUSH 40 MG VIAL. IVP SCH (06:30)
[2018-04-23] MEDS: MORPHINE SULFATE 4 MG/ML VIAL. IV PRN ×3 (06:44→21:18)
[2018-04-23 07:00] VITALS: BP 138/85
[2018-04-23] MEDS: FERROUS SULFATE 325 MG TABLET. PO SCH ×2 (08:00→08:44)
[2018-04-23] MEDS: POLYETHYLENE GLYCOL 3350 17 GM PACKET. PO SCH (08:44)
[2018-04-23] MEDS: amLODIPine BESYLATE 10 MG TABLET PO SCH (08:45)
[2018-04-23] MEDS: DOCUSATE SODIUM 100 MG CAPSULE. PO SCH (08:45)
[2018-04-23] MEDS: METOPROLOL SUCC 24HR ER 100 MG TAB.ER.24H. PO SCH (08:45)
[2018-04-23] MEDS: LACTOBACILLUS RHAMNOSUS GG 1 CAPSULE. PO SCH ×2 (08:45→21:00)
[2018-04-23] MEDS: HEPARIN for SUB-Q USE 5,000 UNIT/ML VIAL. SQ SCH ×2 (08:46→21:04)
--- NOTE | 2018-04-23 09:10 | PDOC ---
Subjective: Subjective: Still feels nauseated some and says vomited last night. Tolerated clears this morning and would like to eat more. "Sometimes" abdominal pain. Drinking Miralax. Objective: Vital Signs: Vital Signs Date Time Temp Pulse Resp B/P (MAP) Pulse Ox O2 Delivery O2 Flow Rate FiO2 04/23/18 08:45 82 138/85 04/23/18 07:43 Room Air 04/23/18 07:14 18 04/23/18 07:00 98.5 97 98.5 Labs: Laboratory Tests Test 04/22/18 11:17 04/22/18 17:10 04/22/18 20:37 04/23/18 01:40 Glucose (Fingerstick) 176 mg/dL 143 mg/dL 162 mg/dL 126 mg/dL Test 04/23/18 07:30 Glucose (Fingerstick) 129 mg/dL URINE CULTURE Final Final report URINE CULTURE RES 1 Final Comment Mixed urogenital priyank Imaging: Echo 04/21 <Conclusion> The left ventricle is normal size. The left ventricular systolic function is normal and the ejection fraction is within normal range. The Ejection Fraction is 55-60%. There is mild concentric left ventricular hypertrophy. There is no significant aortic valvular stenosis. Doppler and Color Flow revealed no significant aortic regurgitation. Doppler and Color-flow revealed trace mitral regurgitation. Doppler and Color Flow revealed mild to moderate tricuspid regurgitation with an estimated PAP of 37 mmHg. Brain MRI 04/20 Impression: 1. Intracranial findings are unchanged, stable small cavernous malformation of the medial right temporal lobe. PE: GEN: NAD LUNGS: CTAB HEART: RRR ABD: NABS, S/ND/NT EXTREMITY: right leg and hand NEURO/PSYCH: A & O 3 A/P: Recurrent n/v, h/o GERD and gastroparesis -- Seems better but slow improvement as always. Try full liquids, continue IV Reglan and PPI for now, also Miralax. HARLEY GOEL Apr 23, 2018 09:10
--- NOTE | 2018-04-23 09:11 | NUR ---
Patient asking about advance diet, Stephania TREJO APRN on rounds states OK to ADAT, patient wants to try full liquids. Patient had small amount of emesis now, looks appearance saliva, clear fluid and phlegm with renmaibns probiotic pill capsule. Continue cares and monitor.
--- NOTE | 2018-04-23 09:33 | NUR ---
Addendum: patient refused ferrous sulfate po stating it causes N/V.
[2018-04-23] MEDS: ONDANSETRON PF 4 MG/2 ML VIAL. IV PRN (10:28)
[2018-04-23 11:00] VITALS: BP 118/79
--- NOTE | 2018-04-23 11:22 | PDOC ---
Renal-Progress Notes Subjective Notes Notes NONE History of Present Illness Hx of present illness STABLE Vitals Vitals Vital Signs Date Time Temp Pulse Resp B/P (MAP) Pulse Ox O2 Delivery O2 Flow Rate FiO2 04/23/18 11:00 98.3 91 20 118/79 (92) 98 Room Air 98.3 Weight Weight [ ] I.O. Intake and Output Intake and Output 04/23/18 06:59 Intake Total 710 ml Balance 710 ml Intake Oral 710 ml # Voids 6 Labs Labs Laboratory Tests Test 04/22/18 17:10 04/22/18 20:37 04/23/18 01:40 04/23/18 07:30 Glucose (Fingerstick) 143 mg/dL (70-99) 162 mg/dL (70-99) 126 mg/dL (70-99) 129 mg/dL (70-99) Test 04/23/18 10:39 Glucose (Fingerstick) 185 mg/dL (70-99) Micro Micro Microbiology 04/19/18 Urine Culture - Final, Complete 04/19/18 Urine Culture Result 1 (CABRERA) - Final, Complete Review of Systems Constitutional: yes: alert, oriented Ears/Nose/Throat: Yes: no symptom reported Eyes: Yes: no symptom reported Pulmonary: Yes no symptom reported Cardiovascular: Yes no symptom reported Gastrointestional: Yes: nausea Genitourinary: Yes: no symptom reported Musculoskeletal: Yes: no symptom reported Skin: Yes no symptom reported Psychiatric/Neurological: Yes: no symptom reported Endocrine: Yes: no symptom reported Physical Exam General Appearance: no apparent distress Skin: warm Respiratory: decreased breath sounds Heart: S1S2 Abdomen: soft, bowel sounds present Genitourinary: bladder flat Extremities: pulses present Neurology: alert Musculoskeletal: Osteoarthritis Assessment Assessment MP PAM WITH CR IMPROVED TO 1.4-NO CKD DEHYDRATION URINARY TRACT INFECTION GASTROPARESIS MILD HYPOKALEMIA PLAN PO WHEN OK WITH GI ANTIBIOTICS HOLD PRN IBUPROFEN HOLD ARB AND HCTZ FROM HOME MED LIST CONT TO CELEBREX WILL FOLLOW CLAYTON LAMBERT MD Apr 23, 2018 11:22
--- NOTE | 2018-04-23 11:39 | NUR ---
SW following pt. Spoke with PT as pt has not being able to participated with PT since admission. PT Olivia will see pt today. Pt is interested in SNU. Will continue to follow. FRANKLIN Physician.
--- NOTE | 2018-04-23 11:51 | PDOC ---
PROGRESS NOTES Chief Complaint Chief Complaint Recurrent n/v - this time began ~1 week ago H/o GERD and gastroparesis Headaches, PAM/CKD, chronic anemia CRC screen - UTD, per HPI Diverticulosis S/p cholecystectomy, h/o J tube placement and dislodgement H/o elevated lipase - not this time Mild cognitive impairment - history is usually a bit difficult CP, GERD (non cardiac) History of Present Illness History of Present Illness Slow improvement 3 emesis this AM Known gastroparesis and takes days, some times a week in the hospital before she gets better Agreeable to SNU [employer] [facility]'t cover [facility]-she initially wanted just [facility] She is agreeable to another SNU On liquid diet Plan: continue antiemetic supportive meds Reglan etc. Known to GI, known case of gastroparesis Social work - I have discussed to look at other SNU May DC once no more emesis So far 3 emesis just this morning Vitals Vitals Vital Signs Date Time Temp Pulse Resp B/P (MAP) Pulse Ox O2 Delivery O2 Flow Rate FiO2 04/23/18 11:00 98.3 91 20 118/79 (92) 98 Room Air 98.3 Physical Exam General: Alert, Oriented X3, Cooperative, No acute distress Heart: Regular rate (SR), Normal S1, Normal S2, No murmurs Lungs: Clear, Other Abdomen: Other (abd tenderness) Extremities: No cyanosis, No edema Skin: No breakdown, No significant lesion Labs LABS Laboratory Tests Test 04/22/18 17:10 04/22/18 20:37 04/23/18 01:40 04/23/18 07:30 Glucose (Fingerstick) 143 mg/dL (70-99) 162 mg/dL (70-99) 126 mg/dL (70-99) 129 mg/dL (70-99) Test 04/23/18 10:39 Glucose (Fingerstick) 185 mg/dL (70-99) Review of Systems Review of Systems nausea, emesis, weak, the rest of ROS 14 point negative Assessment and Plan Assessmemt and Plan Problems Medical Problems: (1) Gastroparesis Status: Acute (2) Headache Status: Acute (3) Renal failure Status: Acute Comment Review of Relevant I have reviewed the following items mert (where applicable) has been applied. Labs Laboratory Tests Test 04/21/18 15:52 04/21/18 19:52 04/22/18 05:34 04/22/18 08:21 Glucose (Fingerstick) 165 mg/dL (70-99) 199 mg/dL (70-99) 167 mg/dL (70-99) Sodium Level 138 mmol/L (136-145) Potassium Level 3.3 mmol/L (3.5-5.1) Chloride Level 101 mmol/L (98-107) Carbon Dioxide Level 21 mmol/L (21-32) Anion Gap 16 (6-14) Blood Urea Nitrogen 10 mg/dL (7-20) Creatinine 1.4 mg/dL (0.6-1.0) Estimated GFR (Cockcroft-Gault) 45.0 Glucose Level 173 mg/dL (70-99) Calcium Level 9.8 mg/dL (8.5-10.1) Test 04/22/18 11:17 04/22/18 17:10 04/22/18 20:37 04/23/18 01:40 Glucose (Fingerstick) 176 mg/dL (70-99) 143 mg/dL (70-99) 162 mg/dL (70-99) 126 mg/dL (70-99) Test 04/23/18 07:30 04/23/18 10:39 Glucose (Fingerstick) 129 mg/dL (70-99) 185 mg/dL (70-99) Laboratory Tests Test 04/22/18 17:10 04/22/18 20:37 04/23/18 01:40 04/23/18 07:30 Glucose (Fingerstick) 143 mg/dL (70-99) 162 mg/dL (70-99) 126 mg/dL (70-99) 129 mg/dL (70-99) Test 04/23/18 10:39 Glucose (Fingerstick) 185 mg/dL (70-99) Microbiology 04/19/18 Urine Culture - Final, Complete 04/19/18 Urine Culture Result 1 (CABRERA) - Final, Complete Medications Current Medications Ondansetron HCl (Zofran) 8 mg 1X ONCE IV Last administered on 04/19/18at 12:30 ; Start 04/19/18 at 12:30; Stop 04/19/18 at 12:31; Status DC Morphine Sulfate (Morphine Sulfate) 4 mg 1X ONCE IV Last administered on at 12:30; Start 04/19/18 at 12:30; Stop 04/19/18 at 12:31; Status DC Sodium Chloride 1,000 ml @ 1,000 mls/hr 1X ONCE IV Last administered on at 12:30; Start 04/19/18 at 12:30; Stop 04/19/18 at 13:29; Status DC Morphine Sulfate (Morphine Sulfate) 4 mg 1X ONCE IV Last administered on at 15:37; Start 04/19/18 at 15:15; Stop 04/19/18 at 15:16; Status DC Ondansetron HCl (Zofran) 4 mg PRN Q8HRS PRN IV NAUSEA/VOMITING Last administered on 04/20/18at 02:28; Start 04/19/18 at 15:15; Stop 04/20/18 at 10:34 ; Status DC Morphine Sulfate (Morphine Sulfate) 2 mg PRN Q2HR PRN IV PAIN Last administered on 04/20/18at 10:30; Start 04/19/18 at 15:15; Stop 04/20/18 at 15:14 ; Status DC Sodium Chloride 1,000 ml @ 75 mls/hr [id number] IV Last administered on at 04:41; Start 04/19/18 at 15:06; Stop 04/20/18 at 15:05; Status DC Prochlorperazine Edisylate (Compazine) 10 mg PRN Q6HRS PRN IV NAUSEA/VOMITING 2ND CHOICE; Start 04/19/18 at 18:45 Amlodipine Besylate (Norvasc) 10 mg BID PO Last administered on 04/21/18at 19:54 ; Start 04/19/18 at 21:00; Stop 04/22/18 at 08:26; Status DC Docusate Sodium (Colace) 100 mg DAILY PO ; Start 04/20/18 at 09:00; Stop at 09:00; Status DC Acetaminophen/ Hydrocodone Bitart (Lortab 5/325) 1 tab PRN BID PRN PO PAIN Last administered on 04/23/18at 01:38; Start 04/19/18 at 18:45 Levothyroxine Sodium (Synthroid) 100 mcg DAILY05 PO Last administered on 05:28; Start 04/20/18 at 05:00 Metoclopramide HCl (Reglan) 10 mg PRN TID PRN PO NAUSEA; Start 04/19/18 at 18: 45; Stop 04/20/18 at 09:47; Status DC Metoprolol Succinate (Toprol Xl) 100 mg DAILY PO Last administered on 08:45; Start 04/20/18 at 09:00 Trazodone HCl (Desyrel) 50 mg QHS PO Last administered on 04/22/18 21:17; Start 04/19/18 at 21:00 Zolpidem Tartrate (Ambien) 5 mg PRN QHS PRN PO INSOMNIA Last administered on 21:23; Start 04/19/18 at 18:45 Insulin Glargine (Lantus) 20 units QHS SQ Last administered on 04/22/18 21:42 ; Start 04/19/18 at 21:00 Ferrous Sulfate (Feosol) 325 mg DAILYWBKFT PO Last administered on 04/20/18 11 :20; Start 04/20/18 at 08:00 Pantoprazole Sodium (Protonix) 40 mg DAILYAC PO ; Start 04/20/18 at 07:30; Stop 04/20/18 at 09:47; Status DC Simvastatin (Zocor) 20 mg HS PO Last administered on 04/22/18 21:17; Start at 21:00 Sucralfate (Carafate) 1 gm QIDACHS PO Last administered on 04/23/18 11:14; Start 04/19/18 at 21:00 Docusate Sodium (Colace) 100 mg DAILY PO Last administered on 04/23/18 08:45; Start 04/19/18 at 20:00 Polyethylene Glycol (miraLAX PACKET) 17 gm 1X ONCE PO Last administered on 19:44; Start 04/19/18 at 19:30; Stop 04/19/18 at 19:31; Status DC Polyethylene Glycol (miraLAX PACKET) 17 gm DAILY PO Last administered on 08:44; Start 04/20/18 at 09:00 Ceftriaxone Sodium (Rocephin) 1 gm Q24H IVP Last administered on 04/22/18 21: 18; Start 04/19/18 at 20:00 Heparin Sodium (Porcine) (Heparin Sodium) 5,000 unit BID SQ Last administered on 04/23/18 08:46; Start 04/19/18 at 21:00 Pantoprazole Sodium (PROTONIX VIAL for IV PUSH) 40 mg DAILYAC IVP Last administered on 04/23/18 06:30; Start 04/21/18 at 07:30 Metoclopramide HCl (Reglan Vial) 5 mg QIDACHS IV Last administered on 11:14; Start 04/20/18 at 11:30 Ondansetron HCl (Zofran) 4 mg PRN Q6HRS PRN IV NAUSEA/VOMITING 1ST CHOICE Last administered on 04/23/18 10:28; Start 04/20/18 at 10:45 Prochlorperazine Edisylate (Compazine) 10 mg PRN Q6HRS PRN IV NAUSEA/VOMITING; Start 04/20/18 at 10:45; Stop 04/20/18 at 15:24; Status DC Celecoxib (CeleBREX) 100 mg BID PO ; Start 04/20/18 at 12:15; Stop 04/20/18 at 12:57; Status DC Lactobacillus Rhamnosus (Culturelle) 1 cap BID PO Last administered on 08:45; Start 04/20/18 at 21:00 Morphine Sulfate (Morphine Sulfate) 2 mg PRN Q2HR PRN IV PAIN Last administered on 04/23/18 06:44; Start 04/20/18 at 17:45 Amlodipine Besylate (Norvasc) 10 mg DAILY PO Last administered on 04/23/18 08: 45; Start 04/22/18 at 09:00 Active Scripts Active Levemir Flextouch (Insulin Detemir) 100 Unit/1 Ml Insuln.pen 20 Unit SQ QHS 30 Days Reported Metformin Hcl 1,000 Mg Tablet 1,000 Mg PO BIDWMEALS Ferralet 90 Dual-Iron Tablet (Iron, Carb & Gluc/Fa/B12/C/Dss) 1 Each Tablet 1 Tab PO DAILY Reglan (Metoclopramide Hcl) 10 Mg Tablet 1 Tab PO TID PRN Sucralfate 1 Gm Tablet 1 Tab PO QIDACHS Metoprolol Succinate ( Xl ) (Metoprolol Succinate) 100 Mg Tab.er.24h 1 Tab PO DAILY Simvastatin 20 Mg Tablet 1 Tab PO QHS Enloe 5-325 Tablet (Acetaminophen/Hydrocodone Bitart) 1 Each Tablet 1 Tab PO BID PRN Levothyroxine Sodium 100 Mcg Tablet 1 Tab PO DAILY05 Docusate Sodium 100 Mg Capsule 1 Cap PO DAILY Trazodone Hcl 50 Mg Tablet 50 Mg PO QHS Omeprazole 40 Mg Capsule.dr 1 Cap PO DAILY06 Ibuprofen 800 Mg Tablet 800 Mg PO TID PRN Losartan-Hctz 100-12.5 Mg Tab (Losartan/Hydrochlorothiazide) 1 Each Tablet 1 Tab PO DAILY Ambien (Zolpidem Tartrate) 5 Mg Tablet 5 Mg PO HS PRN Protonix (Pantoprazole Sodium) 20 Mg Tablet.dr 40 Mg PO DAILYAC Amlodipine Besylate 10 Mg Tablet 10 Mg PO BID Vitals/I & O Vital Sign - Last 24 Hours 04/22/18 04/22/18 04/22/18 04/22/18 13:43 15:00 16:53 19:06 Temp 98.9 99.8 98.9 99.8 Pulse 107 111 Resp 17 18 20 20 B/P (MAP) 123/89 (100) 132/88 (103) Pulse Ox 97 95 97 97 O2 Delivery Room Air Room Air 04/22/18 04/22/18 04/22/18 04/22/18 19:36 19:46 20:00 23:26 Temp 98.9 98.3 98.9 98.3 Pulse 67 78 Resp 20 16 B/P (MAP) 133/77 (95) 145/77 (99) Pulse Ox 98 98 94 O2 Delivery Room Air Room Air Room Air 04/23/18 04/23/18 04/23/18 04/23/18 01:38 02:38 03:08 06:44 Temp 98.5 98.5 Pulse 91 Resp 20 20 20 20 B/P (MAP) 137/87 (104) Pulse Ox 94 97 97 97 O2 Delivery Room Air Room Air Room Air Room Air 04/23/18 04/23/18 04/23/18 04/23/18 07:00 07:14 07:43 08:45 Temp 98.5 98.5 Pulse 82 82 Resp 18 18 B/P (MAP) 138/85 (102) 138/85 Pulse Ox 97 O2 Delivery Room Air Room Air Room Air 04/23/18 04/23/18 08:45 11:00 Temp 98.3 98.3 Pulse 82 91 Resp 20 B/P (MAP) 138/85 118/79 (92) Pulse Ox 98 O2 Delivery Room Air Intake and Output 04/22/18 04/22/18 04/23/18 15:00 23:00 07:00 Intake Total 220 ml 160 ml 330 ml Balance 220 ml 160 ml 330 ml Nutrition Consultation Dietary Evaluation: Recommendations by RD: Add supplement feedings Comments: offer ensure clear supplements, snacks from unit prn Expected Outcomes/Goals: to meet > 75% est nutr needs Interpretation of weight loss: >7.5% in 3 months Malnutrition Findings: Food and Nutrition Intake (Sev: <50% est energy req 5days Weight Status: Overweight MARIBEL MARIEE MD Apr 23, 2018 11:51
[2018-04-23 15:00] VITALS: BP 120/80
--- NOTE | 2018-04-23 15:14 | PDOC ---
PROGRESS NOTES Assessment Assessment Severe headaches, improved. Right temporal lobe cavernous malformation. UTI. Abdominal pain, acute on chronic. Vomiting. UTI. Chronic narcotic use for more than 10 years. Narcotic dependence. DM HTN. HLD. Hypothyroidism. GERD. RECOMMENDATIONS/PLAN: Pain control. Suggest taper off Narcotics. Consulted GI for chronic abdominal pain. Consulted NS for cavernous malformation. Treat medical diseases. Consulted NS for right temporal lobe cavernous malformation and no intervention. HISTORY OF THE PRESENT ILLNESS: 72-y-old AA female patient with above medical diseases and chronic Narcotic use/ abuse has been having headaches about 5 times a month, but her headaches are increased this time with vomiting to come to the ER of [facility]. She stated her headaches were at frontal head and occipital head as well we dull pain rated 8-9 /10. No focalized sensory or motor deficits noted. Headaches are controlled on 04/23/18. PAST MEDICAL HISTORY: Please see above. PAST SURGERY HISTORY: Cataract surgery. Cholecystectomy Hysterectomy. ALLERGY: Unknown MEDICATIONS: Refer to [facility] FAMILY HISTORY: Non contributory. SOCIAL HISTORY: Lives with her daughter at home. Denies current smoking, drinking, and illicit drug use. REVIEW OF SYSTEMS: Constitutional: Obesity. Head: No traumatic brain or head injury. Skin: No edema, or rash. Ear: No infection. Eyes: No vision loss or color blindness. Nose: No bleeding or purulent discharges. Hearing: No hearing decrease. Neck: No injury. Breast: No history of cancer, masses,or discharges. Cardiac: HTN, HLD. Pulmonary: No OPD. GI: GERD. Urinary/genital: UTI. Endocrinologic: Diabetes Mellitus, hypothyroidism, obesity. Skeletomuscular: No muscular atrophy, deformity. Neurological: see HP. Psychiatric: Chronic narcotics use/abuse. Otherwise, not [id number] review of systems. PHYSICAL EXAMINATION: General appearance is in subacute distress. HEENT: Normocephalic and nontraumatic. Eyes, nose, ears, and throat are unremarkable. Neck is supple. No lymphadenopathy. No bruits are heard over the carotid artery. No crepitus. Cardiovascular: S1, S2, regular rate and rhythm. Pulmonary: Clear to auscultation bilaterally. Abdomen: Bowel sounds are positive. Abdomen is soft, nontender, and nondistended. Extremities: No rash, lesions, or edema. No restriction of range of motion NEUROLOGICAL EXAMINATION: Awake. Oriented to time, place and person. PERRL. EOMI. CN: no focal findings. Muscle tone: within normal. Muscle strength: 5 DTR: 2 Plantar reflex: Flexor response bilaterally Gait: Able to walk in room. Sensory exam: no abnormal findings. No acute cerebellar signs elicited. F-T-N test fine. Objective Objective Vital Signs Date Time Temp Pulse Resp B/P (MAP) Pulse Ox O2 Delivery O2 Flow Rate FiO2 04/23/18 14:30 18 04/23/18 11:00 98.3 91 118/79 (92) 98 Room Air 98.3 Intake and Output 04/23/18 07:00 Intake Total 710 ml Balance 710 ml Intake Oral 710 ml # Voids 6 Vitals Signs Vitals VS - Last 72 Hours, by Label Date Time Temp Pulse Resp B/P (MAP) Pulse Ox O2 Delivery O2 Flow Rate FiO2 04/23/18 14:30 18 04/23/18 11:00 98.3 91 20 118/79 (92) 98 Room Air 98.3 04/23/18 08:45 82 138/85 04/23/18 08:45 82 138/85 04/23/18 07:43 Room Air 04/23/18 07:14 18 Room Air 04/23/18 07:00 98.5 82 18 138/85 (102) 97 Room Air 98.5 04/23/18 06:44 20 97 Room Air 04/23/18 03:08 98.5 91 20 137/87 (104) 97 Room Air 98.5 04/23/18 02:38 20 97 Room Air 04/23/18 01:38 20 94 Room Air 04/22/18 23:26 98.3 78 16 145/77 (99) 94 Room Air 98.3 04/22/18 20:00 Room Air 04/22/18 19:46 98.9 67 20 133/77 (95) 98 Room Air 98.9 04/22/18 19:36 98 04/22/18 19:06 20 97 Room Air 04/22/18 16:53 20 97 Room Air 04/22/18 15:00 99.8 111 18 132/88 (103) 95 99.8 04/22/18 13:43 98.9 107 17 123/89 (100) 97 98.9 04/22/18 11:45 20 97 Room Air 04/22/18 11:00 98.9 107 17 123/89 (100) 97 Room Air 98.9 04/22/18 08:39 95 124/84 04/22/18 08:38 95 124/84 04/22/18 08:00 Room Air 04/22/18 07:10 Room Air 04/22/18 07:00 98.9 95 17 124/84 (97) 97 Room Air 98.9 Laboratory Laboratory Laboratory Tests Test 04/22/18 17:10 04/22/18 20:37 04/23/18 01:40 04/23/18 07:30 Glucose (Fingerstick) 143 mg/dL (70-99) 162 mg/dL (70-99) 126 mg/dL (70-99) 129 mg/dL (70-99) Test 04/23/18 10:39 Glucose (Fingerstick) 185 mg/dL (70-99) Microbiology 04/19/18 Urine Culture - Final, Complete 04/19/18 Urine Culture Result 1 (CABRERA) - Final, Complete Comment Review of Relevant I have reviewed the following items mert (where applicable) has been applied. KAMRYN CALLEJAS MD Apr 23, 2018 15:14
--- NOTE | 2018-04-23 15:30 | NUR ---
SW following pt. PT recommends SNU. Spoke with pt at bed side about SNU options and insurance coverage. DANNY notified pt [facility] is not in contract with her current insurance. Discussed other options ([facility] and [facility]) and pt chose [facility]. DANNY phoned and faxed referral to [facility]. Pt admission and acceptance pending. DANNY requested Emmie at [facility] to submit for auth if they clinically accept. Will continue to follow.
[2018-04-23 19:00] VITALS: BP 124/81
[2018-04-23] MEDS: cefTRIAXone IV Push 1 GM VIAL. IVP SCH (20:59)
[2018-04-23] MEDS: ZOLPIDEM 5 MG TABLET. PO PRN (21:00)
[2018-04-23] MEDS: traZODone 50 MG TABLET. PO SCH (21:00)
[2018-04-23] MEDS: SIMVASTATIN 20 MG TABLET PO SCH (21:01)
[2018-04-23] MEDS: INSULIN GLARGINE 300 UNITS/3 ML INSULN.PEN. SQ SCH (21:04)
[2018-04-23 23:00] VITALS: BP 119/68
[2018-04-24 03:00] VITALS: BP 128/84
[2018-04-24 05:45] LABS: CALCIUM 9.6 mg/dL (8.5-10.1); CREATININE 1.3 mg/dL (0.6-1.0); POTASSIUM 3.1 mmol/L (3.5-5.1)
[2018-04-24] MEDS: LEVOTHYROXINE 100 MCG TABLET PO SCH (05:52)
[2018-04-24] MEDS: PANTOPRAZOLE IV PUSH 40 MG VIAL. IVP SCH (06:35)
[2018-04-24] MEDS: SUCRALFATE 1 GM TABLET. PO SCH ×4 (06:36→20:31)
[2018-04-24] MEDS: METOCLOPRAMIDE HCL 10 MG/2 ML VIAL. IV SCH ×2 (06:36→10:52)
[2018-04-24] MEDS: HYDROcodone/APAP 5/325MG 1 TAB TABLET PO PRN ×3 (06:41→21:54)
[2018-04-24 07:00] VITALS: BP 119/70
[2018-04-24] MEDS: FERROUS SULFATE 325 MG TABLET. PO SCH (07:14)
--- NOTE | 2018-04-24 08:59 | NUR ---
SW following pt. Pt has been accepted at [facility] pending insurance approval. Auth for SNU pending. Will continue to follow.
[2018-04-24] MEDS: DOCUSATE SODIUM 100 MG CAPSULE. PO SCH (09:00)
[2018-04-24] MEDS: POLYETHYLENE GLYCOL 3350 17 GM PACKET. PO SCH (09:00)
[2018-04-24] MEDS: amLODIPine BESYLATE 10 MG TABLET PO SCH (09:01)
[2018-04-24] MEDS: LACTOBACILLUS RHAMNOSUS GG 1 CAPSULE. PO SCH ×2 (09:01→20:31)
[2018-04-24] MEDS: METOPROLOL SUCC 24HR ER 100 MG TAB.ER.24H. PO SCH (09:02)
[2018-04-24] MEDS: HEPARIN for SUB-Q USE 5,000 UNIT/ML VIAL. SQ SCH ×2 (09:05→20:44)
--- NOTE | 2018-04-24 10:09 | NUR ---
Serum potassium 3.[address] Navarro making rounds now.
[2018-04-24] MEDS: MORPHINE SULFATE 4 MG/ML VIAL. IV PRN ×2 (10:48→13:11)
[2018-04-24 11:00] VITALS: BP 120/68
[2018-04-24] MEDS ORDERED: POTASSIUM CHLORIDE 20 MEQ TABLET.ER. PO ONE ×2 (11:00→17:00)
[2018-04-24] MEDS ORDERED: MAGNESIUM SULFATE 2GM 50 ML IV ONE (11:00)
--- NOTE | 2018-04-24 11:07 | PDOC ---
Renal-Progress Notes Subjective Notes Notes NONE History of Present Illness Hx of present illness BETTER Vitals Vitals Vital Signs Date Time Temp Pulse Resp B/P (MAP) Pulse Ox O2 Delivery O2 Flow Rate FiO2 04/24/18 11:00 98.1 68 17 120/68 (85) 99 Room Air 98.1 Weight Weight [ ] I.O. Intake and Output Intake and Output 04/24/18 07:00 Intake Total 1080 ml Output Total 45 ml Balance 1035 ml Intake Oral 1080 ml Emesis 45 ml # Voids 5 # Bowel Movements 1 Labs Labs Laboratory Tests Test 04/23/18 16:25 04/23/18 20:43 04/24/18 04:10 04/24/18 07:32 Glucose (Fingerstick) 99 mg/dL (70-99) 126 mg/dL (70-99) 122 mg/dL (70-99) Sodium Level 141 mmol/L (136-145) Potassium Level 3.1 mmol/L (3.5-5.1) Chloride Level 103 mmol/L (98-107) Carbon Dioxide Level 25 mmol/L (21-32) Anion Gap 13 (6-14) Blood Urea Nitrogen 7 mg/dL (7-20) Creatinine 1.3 mg/dL (0.6-1.0) Estimated GFR (Cockcroft-Gault) 49.0 Glucose Level 92 mg/dL (70-99) Calcium Level 9.6 mg/dL (8.5-10.1) Micro Micro Microbiology 04/19/18 Urine Culture - Final, Complete 04/19/18 Urine Culture Result 1 (CABRERA) - Final, Complete Review of Systems Constitutional: yes: alert, oriented Ears/Nose/Throat: Yes: no symptom reported Eyes: Yes: no symptom reported Pulmonary: Yes no symptom reported Cardiovascular: Yes no symptom reported Gastrointestional: Yes: nausea Genitourinary: Yes: no symptom reported Musculoskeletal: Yes: no symptom reported Skin: Yes no symptom reported Psychiatric/Neurological: Yes: no symptom reported Endocrine: Yes: no symptom reported Physical Exam General Appearance: no apparent distress Skin: warm Respiratory: decreased breath sounds Heart: S1S2 Abdomen: soft, bowel sounds present Genitourinary: bladder flat Extremities: pulses present Neurology: alert Musculoskeletal: Osteoarthritis Assessment Assessment MP PAM - RESOLVED DEHYDRATION URINARY TRACT INFECTION GASTROPARESIS MILD HYPOKALEMIA PLAN REPLACE K RESUME ARB AND DIURETICS OP NEEDED I WILL SIGN OFF PLEASE CALL IF NEEDED CLAYTON LAMBERT MD Apr 24, 2018 11:07
--- NOTE | 2018-04-24 12:23 | PDOC ---
Subjective: Subjective: Lower abd pain is "just there" - not altered by eating or stooling. Doesn't want to eat more but thinks could get off IV meds. Says she's going to rehab today. Objective: Objective: Per RN - spit out some saliva and a pill yesterday. Gets IV morphine for 10/03 or 12/03 abd pain. Vital Signs: Vital Signs Date Time Temp Pulse Resp B/P (MAP) Pulse Ox O2 Delivery O2 Flow Rate FiO2 04/24/18 11:18 18 Room Air 04/24/18 11:00 98.1 68 120/68 (85) 99 98.1 Labs: Laboratory Tests Test 04/23/18 16:25 04/23/18 20:43 04/24/18 04:10 04/24/18 07:32 Glucose (Fingerstick) 99 mg/dL 126 mg/dL 122 mg/dL Sodium Level 141 mmol/L Potassium Level 3.1 mmol/L Chloride Level 103 mmol/L Carbon Dioxide Level 25 mmol/L Anion Gap 13 Blood Urea Nitrogen 7 mg/dL Creatinine 1.3 mg/dL Estimated GFR (Cockcroft-Gault) 49.0 Glucose Level 92 mg/dL Calcium Level 9.6 mg/dL Test 04/24/18 11:21 Glucose (Fingerstick) 117 mg/dL PE: GEN: NAD LUNGS: CTAB HEART: RRR ABD: S/ND/NT NEURO/PSYCH: A & O 3, smiling, calm A/P: Recurrent n/v, h/o GERD and gastroparesis ?abd pain -- Try transitioning to PO Reglan and PPI. DC per primary. HARLEY GOEL Apr 24, 2018 12:23
--- NOTE | 2018-04-24 12:51 | PDOC ---
PROGRESS NOTES Assessment Assessment Severe headaches, improved. Right temporal lobe cavernous malformation. UTI. Abdominal pain, acute on chronic. Vomiting. UTI. Chronic narcotic use for more than 10 years. Narcotic dependence. DM HTN. HLD. Hypothyroidism. GERD. RECOMMENDATIONS/PLAN: Consulted GI for chronic abdominal pain. Treat medical diseases. Consulted NS for right temporal lobe cavernous malformation and no intervention. OT/PT. HISTORY OF THE PRESENT ILLNESS: 72-y-old AA female patient with above medical diseases and chronic Narcotic use/ abuse has been having headaches about 5 times a month, but her headaches are increased this time with vomiting to come to the ER of [facility]. She stated her headaches were at frontal head and occipital head as well we dull pain rated 8-9 /10. No focalized sensory or motor deficits noted. Headaches are controlled since 04/23/18. PAST MEDICAL HISTORY: Please see above. PAST SURGERY HISTORY: Cataract surgery. Cholecystectomy Hysterectomy. ALLERGY: Unknown MEDICATIONS: Refer to [facility] FAMILY HISTORY: Non contributory. SOCIAL HISTORY: Lives with her daughter at home. Denies current smoking, drinking, and illicit drug use. REVIEW OF SYSTEMS: Constitutional: Obesity. Head: No traumatic brain or head injury. Skin: No edema, or rash. Ear: No infection. Eyes: No vision loss or color blindness. Nose: No bleeding or purulent discharges. Hearing: No hearing decrease. Neck: No injury. Breast: No history of cancer, masses,or discharges. Cardiac: HTN, HLD. Pulmonary: No OPD. GI: GERD. Urinary/genital: UTI. Endocrinologic: Diabetes Mellitus, hypothyroidism, obesity. Skeletomuscular: No muscular atrophy, deformity. Neurological: see HP. Psychiatric: Chronic narcotics use/abuse. Otherwise, not [id number] review of systems. PHYSICAL EXAMINATION: General appearance is in subacute distress. HEENT: Normocephalic and nontraumatic. Eyes, nose, ears, and throat are unremarkable. Neck is supple. No lymphadenopathy. No bruits are heard over the carotid artery. No crepitus. Cardiovascular: S1, S2, regular rate and rhythm. Pulmonary: Clear to auscultation bilaterally. Abdomen: Bowel sounds are positive. Abdomen is soft, nontender, and nondistended. Extremities: No rash, lesions, or edema. No restriction of range of motion NEUROLOGICAL EXAMINATION: Awake. Oriented to time, place and person. PERRL. EOMI. CN: no focal findings. Muscle tone: within normal. Muscle strength: 5 DTR: 2 Plantar reflex: Flexor response bilaterally Gait: Able to walk in room with a walker. Sensory exam: no abnormal findings. No acute cerebellar signs elicited. F-T-N test fine. Objective Objective Vital Signs Date Time Temp Pulse Resp B/P (MAP) Pulse Ox O2 Delivery O2 Flow Rate FiO2 04/24/18 11:18 18 Room Air 04/24/18 11:00 98.1 68 120/68 (85) 99 98.1 Intake and Output 04/24/18 07:00 Intake Total 1080 ml Output Total 45 ml Balance 1035 ml Intake Oral 1080 ml Emesis 45 ml # Voids 5 # Bowel Movements 1 Vitals Signs Vitals VS - Last 72 Hours, by Label Date Time Temp Pulse Resp B/P (MAP) Pulse Ox O2 Delivery O2 Flow Rate FiO2 04/24/18 11:18 18 Room Air 04/24/18 11:00 98.1 68 17 120/68 (85) 99 Room Air 98.1 04/24/18 10:48 18 Room Air 04/24/18 09:02 73 119/70 04/24/18 09:01 73 119/70 04/24/18 08:00 Room Air 04/24/18 07:41 18 Room Air 04/24/18 07:00 98.4 73 17 119/70 (86) 98 Room Air 98.4 04/24/18 06:41 20 97 Room Air 04/24/18 03:00 98.3 85 18 128/84 (99) 97 Room Air 98.3 04/23/18 23:00 97.7 70 17 119/68 (85) 95 Room Air 97.7 04/23/18 21:48 95 Room Air 04/23/18 21:18 18 98 Room Air 04/23/18 20:00 Room Air 04/23/18 19:00 98.6 72 17 124/81 (95) 98 Room Air 98.6 04/23/18 17:02 18 04/23/18 16:32 18 Room Air 04/23/18 15:00 98.5 87 20 120/80 (93) 97 Room Air 98.5 04/23/18 14:30 18 04/23/18 11:00 98.3 91 20 118/79 (92) 98 Room Air 98.3 04/23/18 08:45 82 138/85 04/23/18 08:45 82 138/85 04/23/18 07:43 Room Air 04/23/18 07:00 98.5 82 18 138/85 (102) 97 Room Air 98.5 Laboratory Laboratory Laboratory Tests Test 04/23/18 16:25 04/23/18 20:43 04/24/18 04:10 04/24/18 07:32 Glucose (Fingerstick) 99 mg/dL (70-99) 126 mg/dL (70-99) 122 mg/dL (70-99) Sodium Level 141 mmol/L (136-145) Potassium Level 3.1 mmol/L (3.5-5.1) Chloride Level 103 mmol/L (98-107) Carbon Dioxide Level 25 mmol/L (21-32) Anion Gap 13 (6-14) Blood Urea Nitrogen 7 mg/dL (7-20) Creatinine 1.3 mg/dL (0.6-1.0) Estimated GFR (Cockcroft-Gault) 49.0 Glucose Level 92 mg/dL (70-99) Calcium Level 9.6 mg/dL (8.5-10.1) Test 04/24/18 11:21 Glucose (Fingerstick) 117 mg/dL (70-99) Microbiology 04/19/18 Urine Culture - Final, Complete 04/19/18 Urine Culture Result 1 (CABRERA) - Final, Complete Medication Medications Current Medications Magnesium Sulfate 50 ml @ 25 mls/hr 1X ONCE IV Last administered on 04/24/18at 10:52; Start 04/24/18 at 11:00; Stop 04/24/18 at 12:59 Metoclopramide HCl (Reglan Oral Solution) 5 mg QIDACHS PO ; Start 04/24/18 at 16: 30 Morphine Sulfate (Morphine Sulfate) 4 mg PRN Q2HR PRN IV PAIN Last administered on 04/24/18at 10:48; Start 04/24/18 at 10:45 Pantoprazole Sodium (Protonix) 40 mg DAILYAC PO ; Start 04/25/18 at 07:30 Potassium Chloride (Klor-Con) 20 meq DAILYWBKFT PO ; Start 04/25/18 at 08:00 Potassium Chloride (Klor-Con) 40 meq 1X ONCE PO Last administered on 04/24/18at 10:50; Start 04/24/18 at 11:00; Stop 04/24/18 at 11:01; Status DC Comment Review of Relevant I have reviewed the following items mert (where applicable) has been applied. KAMRYN CALLEJAS MD Apr 24, 2018 12:51
--- NOTE | 2018-04-24 14:12 | PDOC ---
PROGRESS NOTES Chief Complaint Chief Complaint Recurrent n/v - w. abdominal pain, gastroparesis, H/o GERD and gastroparesis Headaches, PAM/CKD, chronic anemia CRC screen - UTD, per HPI Diverticulosis S/p cholecystectomy, h/o J tube placement and dislodgement H/o elevated lipase - not this time Mild cognitive impairment - history is usually a bit difficult CP, GERD History of Present Illness History of Present Illness Known gastroparesis and as before had been slow to improve, she feels like she just got here, I told her it was almost a week she had wanted, SNU [employer] won't cover SNU, I discussed with their medical practice administrator by phone, pt ambulated > 200 feet, should try to DC home On full liquid diet, may advance, will try home health, DC order placed, she may dispute, June DC Vitals Vitals Vital Signs Date Time Temp Pulse Resp B/P (MAP) Pulse Ox O2 Delivery O2 Flow Rate FiO2 04/24/18 13:11 18 Room Air 04/24/18 11:00 98.1 68 120/68 (85) 99 98.1 Physical Exam General: Alert, Oriented X3, Cooperative, No acute distress Heart: Regular rate (SR), Normal S1, Normal S2, No murmurs Lungs: Clear, Other Abdomen: Other (abd tenderness) Extremities: No cyanosis, No edema Skin: No breakdown, No significant lesion Labs LABS Laboratory Tests Test 04/23/18 16:25 04/23/18 20:43 04/24/18 04:10 04/24/18 07:32 Glucose (Fingerstick) 99 mg/dL (70-99) 126 mg/dL (70-99) 122 mg/dL (70-99) Sodium Level 141 mmol/L (136-145) Potassium Level 3.1 mmol/L (3.5-5.1) Chloride Level 103 mmol/L (98-107) Carbon Dioxide Level 25 mmol/L (21-32) Anion Gap 13 (6-14) Blood Urea Nitrogen 7 mg/dL (7-20) Creatinine 1.3 mg/dL (0.6-1.0) Estimated GFR (Cockcroft-Gault) 49.0 Glucose Level 92 mg/dL (70-99) Calcium Level 9.6 mg/dL (8.5-10.1) Test 04/24/18 11:21 Glucose (Fingerstick) 117 mg/dL (70-99) Assessment and Plan Assessmemt and Plan Problems Medical Problems: (1) Gastroparesis Status: Acute (2) Headache Status: Acute (3) Renal failure Status: Acute Comment Review of Relevant I have reviewed the following items mert (where applicable) has been applied. Labs Laboratory Tests Test 04/22/18 17:10 04/22/18 20:37 04/23/18 01:40 04/23/18 07:30 Glucose (Fingerstick) 143 mg/dL (70-99) 162 mg/dL (70-99) 126 mg/dL (70-99) 129 mg/dL (70-99) Test 04/23/18 10:39 04/23/18 16:25 04/23/18 20:43 04/24/18 04:10 Glucose (Fingerstick) 185 mg/dL (70-99) 99 mg/dL (70-99) 126 mg/dL (70-99) Sodium Level 141 mmol/L (136-145) Potassium Level 3.1 mmol/L (3.5-5.1) Chloride Level 103 mmol/L (98-107) Carbon Dioxide Level 25 mmol/L (21-32) Anion Gap 13 (6-14) Blood Urea Nitrogen 7 mg/dL (7-20) Creatinine 1.3 mg/dL (0.6-1.0) Estimated GFR (Cockcroft-Gault) 49.0 Glucose Level 92 mg/dL (70-99) Calcium Level 9.6 mg/dL (8.5-10.1) Test 04/24/18 07:32 04/24/18 11:21 Glucose (Fingerstick) 122 mg/dL (70-99) 117 mg/dL (70-99) Laboratory Tests Test 04/23/18 16:25 04/23/18 20:43 04/24/18 04:10 04/24/18 07:32 Glucose (Fingerstick) 99 mg/dL (70-99) 126 mg/dL (70-99) 122 mg/dL (70-99) Sodium Level 141 mmol/L (136-145) Potassium Level 3.1 mmol/L (3.5-5.1) Chloride Level 103 mmol/L (98-107) Carbon Dioxide Level 25 mmol/L (21-32) Anion Gap 13 (6-14) Blood Urea Nitrogen 7 mg/dL (7-20) Creatinine 1.3 mg/dL (0.6-1.0) Estimated GFR (Cockcroft-Gault) 49.0 Glucose Level 92 mg/dL (70-99) Calcium Level 9.6 mg/dL (8.5-10.1) Test 04/24/18 11:21 Glucose (Fingerstick) 117 mg/dL (70-99) Microbiology 04/19/18 Urine Culture - Final, Complete 04/19/18 Urine Culture Result 1 (CABRERA) - Final, Complete Medications Current Medications Ondansetron HCl (Zofran) 8 mg 1X ONCE IV Last administered on 04/19/18at 12:30 ; Start 04/19/18 at 12:30; Stop 04/19/18 at 12:31; Status DC Morphine Sulfate (Morphine Sulfate) 4 mg 1X ONCE IV Last administered on at 12:30; Start 04/19/18 at 12:30; Stop 04/19/18 at 12:31; Status DC Sodium Chloride 1,000 ml @ 1,000 mls/hr 1X ONCE IV Last administered on at 12:30; Start 04/19/18 at 12:30; Stop 04/19/18 at 13:29; Status DC Morphine Sulfate (Morphine Sulfate) 4 mg 1X ONCE IV Last administered on at 15:37; Start 04/19/18 at 15:15; Stop 04/19/18 at 15:16; Status DC Ondansetron HCl (Zofran) 4 mg PRN Q8HRS PRN IV NAUSEA/VOMITING Last administered on 04/20/18at 02:28; Start 04/19/18 at 15:15; Stop 04/20/18 at 10:34 ; Status DC Morphine Sulfate (Morphine Sulfate) 2 mg PRN Q2HR PRN IV PAIN Last administered on 04/20/18at 10:30; Start 04/19/18 at 15:15; Stop 04/20/18 at 15:14 ; Status DC Sodium Chloride 1,000 ml @ 75 mls/hr [id number] IV Last administered on at 04:41; Start 04/19/18 at 15:06; Stop 04/20/18 at 15:05; Status DC Prochlorperazine Edisylate (Compazine) 10 mg PRN Q6HRS PRN IV NAUSEA/VOMITING 2ND CHOICE; Start 04/19/18 at 18:45 Amlodipine Besylate (Norvasc) 10 mg BID PO Last administered on 04/21/18 19:54 ; Start 04/19/18 at 21:00; Stop 04/22/18 at 08:26; Status DC Docusate Sodium (Colace) 100 mg DAILY PO ; Start 04/20/18 at 09:00; Stop at 09:00; Status DC Acetaminophen/ Hydrocodone Bitart (Lortab 5/325) 1 tab PRN BID PRN PO PAIN Last administered on 04/24/18 06:41; Start 04/19/18 at 18:45 Levothyroxine Sodium (Synthroid) 100 mcg DAILY05 PO Last administered on 05:52; Start 04/20/18 at 05:00 Metoclopramide HCl (Reglan) 10 mg PRN TID PRN PO NAUSEA; Start 04/19/18 at 18: 45; Stop 04/20/18 at 09:47; Status DC Metoprolol Succinate (Toprol Xl) 100 mg DAILY PO Last administered on 04/24/18 09:02; Start 04/20/18 at 09:00 Trazodone HCl (Desyrel) 50 mg QHS PO Last administered on 04/23/18at 21:00; Start 04/19/18 at 21:00 Zolpidem Tartrate (Ambien) 5 mg PRN QHS PRN PO INSOMNIA Last administered on 21:00; Start 04/19/18 at 18:45 Insulin Glargine (Lantus) 20 units QHS SQ Last administered on 04/23/18 21:04 ; Start 04/19/18 at 21:00 Ferrous Sulfate (Feosol) 325 mg DAILYWBKFT PO Last administered on 04/20/18at 11 :20; Start 04/20/18 at 08:00 Pantoprazole Sodium (Protonix) 40 mg DAILYAC PO ; Start 04/20/18 at 07:30; Stop 04/20/18 at 09:47; Status DC Simvastatin (Zocor) 20 mg HS PO Last administered on 04/23/18 21:01; Start at 21:00 Sucralfate (Carafate) 1 gm QIDACHS PO Last administered on 04/24/18 10:50; Start 04/19/18 at 21:00 Docusate Sodium (Colace) 100 mg DAILY PO Last administered on 04/23/18 08:45; Start 04/19/18 at 20:00 Polyethylene Glycol (miraLAX PACKET) 17 gm 1X ONCE PO Last administered on 19:44; Start 04/19/18 at 19:30; Stop 04/19/18 at 19:31; Status DC Polyethylene Glycol (miraLAX PACKET) 17 gm DAILY PO Last administered on 08:44; Start 04/20/18 at 09:00 Ceftriaxone Sodium (Rocephin) 1 gm Q24H IVP Last administered on 04/23/18 20: 59; Start 04/19/18 at 20:00 Heparin Sodium (Porcine) (Heparin Sodium) 5,000 unit BID SQ Last administered on 04/24/18 09:05; Start 04/19/18 at 21:00 Pantoprazole Sodium (PROTONIX VIAL for IV PUSH) 40 mg DAILYAC IVP Last administered on 04/24/18 06:35; Start 04/21/18 at 07:30; Stop 04/24/18 at 12:30; Status DC Metoclopramide HCl (Reglan Vial) 5 mg QIDACHS IV Last administered on 04/24/18 10:52; Start 04/20/18 at 11:30; Stop 04/24/18 at 12:31; Status DC Ondansetron HCl (Zofran) 4 mg PRN Q6HRS PRN IV NAUSEA/VOMITING 1ST CHOICE Last administered on 04/23/18 10:28; Start 04/20/18 at 10:45 Prochlorperazine Edisylate (Compazine) 10 mg PRN Q6HRS PRN IV NAUSEA/VOMITING; Start 04/20/18 at 10:45; Stop 04/20/18 at 15:24; Status DC Celecoxib (CeleBREX) 100 mg BID PO ; Start 04/20/18 at 12:15; Stop 04/20/18 at 12:57; Status DC Lactobacillus Rhamnosus (Culturelle) 1 cap BID PO Last administered on at 09:01; Start 04/20/18 at 21:00 Morphine Sulfate (Morphine Sulfate) 2 mg PRN Q2HR PRN IV PAIN Last administered on 04/23/18at 21:18; Start 04/20/18 at 17:45; Stop 04/24/18 at 10:34 ; Status DC Amlodipine Besylate (Norvasc) 10 mg DAILY PO Last administered on 04/24/18at 09: 01; Start 04/22/18 at 09:00 Morphine Sulfate (Morphine Sulfate) 4 mg PRN Q2HR PRN IV PAIN Last administered on 04/24/18at 13:11; Start 04/24/18 at 10:45 Potassium Chloride (Klor-Con) 40 meq 1X ONCE PO Last administered on 04/24/18at 10:50; Start 04/24/18 at 11:00; Stop 04/24/18 at 11:01; Status DC Potassium Chloride (Klor-Con) 20 meq DAILYWBKFT PO ; Start 04/25/18 at 08:00 Magnesium Sulfate 50 ml @ 25 mls/hr 1X ONCE IV Last administered on 04/24/18at 10:52; Start 04/24/18 at 11:00; Stop 04/24/18 at 12:59; Status DC Metoclopramide HCl (Reglan Oral Solution) 5 mg QIDACHS PO ; Start 04/24/18 at 16: 30 Pantoprazole Sodium (Protonix) 40 mg DAILYAC PO ; Start 04/25/18 at 07:30 Active Scripts Active Levemir Flextouch (Insulin Detemir) 100 Unit/1 Ml Insuln.pen 20 Unit SQ QHS 30 Days Reported Metformin Hcl 1,000 Mg Tablet 1,000 Mg PO BIDWMEALS Ferralet 90 Dual-Iron Tablet (Iron, Carb & Gluc/Fa/B12/C/Dss) 1 Each Tablet 1 Tab PO DAILY Reglan (Metoclopramide Hcl) 10 Mg Tablet 1 Tab PO TID PRN Sucralfate 1 Gm Tablet 1 Tab PO QIDACHS Metoprolol Succinate ( Xl ) (Metoprolol Succinate) 100 Mg Tab.er.24h 1 Tab PO DAILY Simvastatin 20 Mg Tablet 1 Tab PO QHS [place] 5-325 Tablet (Acetaminophen/Hydrocodone Bitart) 1 Each Tablet 1 Tab PO BID PRN Levothyroxine Sodium 100 Mcg Tablet 1 Tab PO DAILY05 Docusate Sodium 100 Mg Capsule 1 Cap PO DAILY Trazodone Hcl 50 Mg Tablet 50 Mg PO QHS Omeprazole 40 Mg Capsule.dr 1 Cap PO DAILY06 Ibuprofen 800 Mg Tablet 800 Mg PO TID PRN Losartan-Hctz 100-12.5 Mg Tab (Losartan/Hydrochlorothiazide) 1 Each Tablet 1 Tab PO DAILY Ambien (Zolpidem Tartrate) 5 Mg Tablet 5 Mg PO HS PRN Protonix (Pantoprazole Sodium) 20 Mg Tablet.dr 40 Mg PO DAILYAC Amlodipine Besylate 10 Mg Tablet 10 Mg PO BID Vitals/I & O Vital Sign - Last 24 Hours 04/23/18 04/23/18 04/23/18 04/23/18 14:30 15:00 16:32 17:02 Temp 98.5 98.5 Pulse 87 Resp 18 20 18 18 B/P (MAP) 120/80 (93) Pulse Ox 97 O2 Delivery Room Air Room Air 04/23/18 04/23/18 04/23/18 04/23/18 19:00 20:00 21:18 21:48 Temp 98.6 98.6 Pulse 72 Resp 17 18 B/P (MAP) 124/81 (95) Pulse Ox 98 98 95 O2 Delivery Room Air Room Air Room Air Room Air 04/23/18 04/24/18 04/24/18 04/24/18 23:00 03:00 06:41 07:00 Temp 97.7 98.3 98.4 97.7 98.3 98.4 Pulse 70 85 73 Resp 17 18 20 17 B/P (MAP) 119/68 (85) 128/84 (99) 119/70 (86) Pulse Ox 95 97 97 98 O2 Delivery Room Air Room Air Room Air Room Air 04/24/18 04/24/18 04/24/18 04/24/18 07:41 08:00 09:01 09:02 Pulse 73 73 Resp 18 B/P (MAP) 119/70 119/70 O2 Delivery Room Air Room Air 04/24/18 04/24/18 04/24/18 04/24/18 10:48 11:00 11:18 13:11 Temp 98.1 98.1 Pulse 68 Resp 18 17 18 18 B/P (MAP) 120/68 (85) Pulse Ox 99 O2 Delivery Room Air Room Air Room Air Room Air Intake and Output 04/23/18 04/23/18 04/24/18 15:00 23:00 07:00 Intake Total 620 ml 300 ml 160 ml Output Total 45 ml Balance 575 ml 300 ml 160 ml Nutrition Consultation Dietary Evaluation: Recommendations by RD: Add supplement feedings Comments: offer supplements, snacks from unit prn Expected Outcomes/Goals: to meet > 75% est nutr needs- not met, goal ongoing Interpretation of weight loss: >7.5% in 3 months Malnutrition Findings: Food and Nutrition Intake (Sev: <50% est energy req 5days Weight Status: Overweight LINDA CENTENO MD Apr 24, 2018 14:12
[2018-04-24] MEDS ORDERED: CIPR250T30 PO (14:17)
--- NOTE | 2018-04-24 14:18 | NUR ---
SW following pt. DANNY received a phone call from Nya at [facility], phone: [phone], ext: [phone] who requested for Physician to call their security director for peer to peer. Dr. Navarro attempted to call but was unable to reach MD. Spoke with Nya again and she reported she is not able to provide our Physician number to their MD. Physician notified.
--- NOTE | 2018-04-24 14:21 | DISCH ---
DISCHARGE WITH HOME HEALTH DISCHARGE INFORMATION: Discharge Date: Apr 24, 2018 Final Diagnosis: Problems Medical Problems: (1) Gastroparesis Status: Acute (2) Headache Status: Acute (3) Renal failure Status: Acute Condition on Discharge: Stable CODE STATUS: Code Status: Full HOME HEALTH: Face to Face: I certify this patient is under my care and that I, or a nurse practitioner or physician's podiatry assistant working with me, had a face to face encounter that meets the physician face to face encounter requirements with this patient on 04/24 Physical Therapy For: Evalulation/Treatment Occupational Therapy For: Evaluation/Treatment POST DISCHARGE ORDERS: Activity Instructions for Disc: Activity as tolerated Weight Bearing Status after Di: Full weight bearing DIET AFTER DISCHARGE: Cardiac Wound/Incision Care: No wound care needed CHECKS AFTER DISCHARGE: Checks after discharge: Check blood press - daily, Check blood sugar, ac/hs, Check your Temp as needed FOLLOW-UP: Follow up with: primary care TREATMENT/EQUIPMENT ORDERS: Adaptive Equipment Issued: None CERTIFICATION STATEMENT: Certification Statement: Certification Statement: Based on the above finding, I certify that this patient is confined to the home and needs intermittent usp care, physical therapy and/or speech therapy, or continues to need occupational therapy.~ This patient is under my care, and I have initiated the establishment of the plan of care.~ This patient will be followed by myself or a community physician who will periodically review the plan of care. Home Meds Active Scripts Ciprofloxacin Hcl (CIPRO) 250 Mg Tablet, 1 TAB PO BID for uti, #6 TAB Prov:LINDA CENTENO MD 04/24/18 Insulin Detemir (Levemir Flextouch) 100 Unit/1 Ml Insuln.pen, 20 UNIT SQ QHS for 30 Days, SYR Prov:MARIBEL MARIEE MD 04/28/17 Reported Medications Metformin Hcl (METFORMIN HCL) 1,000 Mg Tablet, 1000 MG PO BIDWMEALS, TAB 10/13/17 Iron, Carb & Gluc/Fa/B12/C/Dss (FERRALET 90 DUAL-IRON TABLET) 1 Each Tablet, 1 TAB PO DAILY, #90 TAB 3 Refills 10/13/17 Metoclopramide Hcl (REGLAN) 10 Mg Tablet, 1 TAB PO TID PRN for NAUSEA, #90 TAB 10/13/17 Sucralfate (SUCRALFATE) 1 Gm Tablet, 1 TAB PO QIDACHS, #120 TAB 3 Refills 10/13/17 Metoprolol Succinate (METOPROLOL SUCCINATE ( XL )) 100 Mg Tab.er.24h, 1 TAB PO DAILY, #30 TAB 5 Refills 10/13/17 Simvastatin (SIMVASTATIN) 20 Mg Tablet, 1 TAB PO QHS, #30 TAB 5 Refills 10/13/17 Hydrocodone/Apap 5-325 (NORCO 5-325 TABLET) 1 Each Tablet, 1 TAB PO BID PRN for PAIN, #60 TAB 10/13/17 Levothyroxine Sodium (LEVOTHYROXINE SODIUM) 100 Mcg Tablet, 1 TAB PO DAILY05, # 30 TAB 5 Refills 10/13/17 Docusate Sodium (DOCUSATE SODIUM) 100 Mg Capsule, 1 CAP PO DAILY, #30 CAP 10/13/17 Trazodone Hcl (TRAZODONE HCL) 50 Mg Tablet, 50 MG PO QHS, TAB 10/13/17 Omeprazole (OMEPRAZOLE) 40 Mg Capsule.dr, 1 CAP PO DAILY06, #30 CAP 3 Refills 10/13/17 Ibuprofen (IBUPROFEN) 800 Mg Tablet, 800 MG PO TID PRN for INFLAMMATION, TAB 10/13/17 Losartan/Hydrochlorothiazide (LOSARTAN-HCTZ 100-12.5 MG TAB) 1 Each Tablet, 1 TAB PO DAILY, #30 TAB 5 Refills 10/13/17 Zolpidem Tartrate (AMBIEN) 5 Mg Tablet, 5 MG PO HS PRN for INSOMNIA, TAB 0 Refills 05/25/17 Pantoprazole Sodium (PROTONIX) 20 Mg Tablet.dr, 40 MG PO DAILYAC, TAB 04/07/17 Amlodipine Besylate (AMLODIPINE BESYLATE) 10 Mg Tablet, 10 MG PO BID, #60 07/31/16 Discontinued Reported Medications Spironolactone (SPIRONOLACTONE) 50 Mg Tablet, 1 TAB PO DAILY, #30 TAB 5 Refills 10/13/17 Amitriptyline Hcl (AMITRIPTYLINE HCL) 50 Mg Tablet, 1 TAB PO QHS, #30 TAB 1 Refill 10/13/17 Potassium Chloride (POTASSIUM CHLORIDE) 20 Meq Tablet.er, 20 MEQ PO DAILY, TAB.SR 04/07/17 LINDA CENTENO MD Apr 24, 2018 14:21
[2018-04-24 15:00] VITALS: BP 128/74
--- NOTE | 2018-04-24 15:50 | NUR ---
DANNY following. Insurance denied SNU. Spoke with pt in room with Physician present. Pt reported she wanted to appeal her dc plan. DANNY then provided pt with Medicare letter and explained rights. When SW attempted to call [facility], pt reported she does not want to appeal any more and will go home tonight. Pt then phoned daughter and her daughter reported she will come pick and shovel worker pt at 1900. Pt agreeable with [facility]. DANNY phoned and faxed orders to [facility]. RN notified. Addendum: 04/24/18 at 1628 by OSMAR DELGADO A nurse from [facility] will see pt on Friday.
[2018-04-24] MEDS: METOCLOPRAMIDE ORAL SOLN 10 MG/10 ML SOLUTION. PO SCH ×2 (16:03→20:32)
--- NOTE | 2018-04-24 16:24 | NUR ---
Patient verb. she will be discharge this evening, family member to come and pick her up, unknown time. IV dc'd for discharge. Oral medications given. Patient had small amount emesis with digested roast beef from lunch approximately 30cc, just now. Dr. Navarro notified, see orders, he stated if patient does not feel better for discharge this p.m. she can stay. Patient verb. understanding medication and preceding.
[2018-04-24] MEDS ORDERED: ONDANSETRON ODT 4 MG TAB.RAPDIS. PO PRN (16:30)
--- NOTE | 2018-04-24 17:17 | NUR ---
Patient belching and states still having some nausea, not wanting pm meal at this time, holding oral potassium for 1700 until patient not nauseated.
[2018-04-24] MEDS: CIPROFLOXACIN HCL 250 MG TABLET. PO SCH (17:30)
--- NOTE | 2018-04-24 18:07 | NUR ---
Patient drank 120 cc cran juice for pm meal, refused solid food r/t still having nausea. Had approx. 30 cc clear fluid and phlegm appearance emesis at 1800.
[2018-04-24 19:00] VITALS: BP 118/60
--- NOTE | 2018-04-24 20:00 | NUR ---
Pt had a blood glucose of 112, gave 15 units of Lantus instead of 20 per patient request.
[2018-04-24] MEDS: traZODone 50 MG TABLET. PO SCH (20:31)
[2018-04-24] MEDS: SIMVASTATIN 20 MG TABLET PO SCH (20:31)
[2018-04-24] MEDS: INSULIN GLARGINE 300 UNITS/3 ML INSULN.PEN. SQ SCH (20:44)
[2018-04-24] MEDS: ZOLPIDEM 5 MG TABLET. PO PRN (20:46)
--- NOTE | 2018-04-24 21:36 | NUR ---
Spoke with Dr. Funes regarding Mrs. Doherty's pain. Gave orders to change Lortab from BID PRN to Q4HRS PRN.
[2018-04-24 23:00] VITALS: BP 116/76
[2018-04-25 03:00] VITALS: BP 111/75
[2018-04-25] MEDS: HYDROcodone/APAP 5/325MG 1 TAB TABLET PO PRN ×3 (03:05→13:06)
[2018-04-25] MEDS: LEVOTHYROXINE 100 MCG TABLET PO SCH (04:51)
[2018-04-25 07:00] VITALS: BP 144/82
[2018-04-25] MEDS ORDERED: PANTOPRAZOLE 40 MG TABLET.DR. PO SCH (07:30)
[2018-04-25] MEDS ORDERED: POTASSIUM CHLORIDE 20 MEQ TABLET.ER. PO SCH (08:00)
[2018-04-25] MEDS: FERROUS SULFATE 325 MG TABLET. PO SCH ×2 (08:00→08:20)
[2018-04-25] MEDS: DOCUSATE SODIUM 100 MG CAPSULE. PO SCH ×2 (08:20→08:39)
[2018-04-25] MEDS: SUCRALFATE 1 GM TABLET. PO SCH ×2 (08:20→11:19)
[2018-04-25] MEDS: POLYETHYLENE GLYCOL 3350 17 GM PACKET. PO SCH ×2 (08:20→08:39)
[2018-04-25] MEDS: LACTOBACILLUS RHAMNOSUS GG 1 CAPSULE. PO SCH (08:20)
[2018-04-25] MEDS: METOCLOPRAMIDE ORAL SOLN 10 MG/10 ML SOLUTION. PO SCH ×2 (08:20→11:20)
[2018-04-25] MEDS: amLODIPine BESYLATE 10 MG TABLET PO SCH (08:22)
[2018-04-25] MEDS: METOPROLOL SUCC 24HR ER 100 MG TAB.ER.24H. PO SCH (08:22)
[2018-04-25] MEDS: CIPROFLOXACIN HCL 250 MG TABLET. PO SCH (08:23)
[2018-04-25] MEDS: HEPARIN for SUB-Q USE 5,000 UNIT/ML VIAL. SQ SCH (08:33)
[2018-04-25 11:00] VITALS: BP 151/87
--- NOTE | 2018-04-25 12:46 | PDOC ---
PROGRESS NOTES Chief Complaint Chief Complaint Recurrent n/v - w. abdominal pain, gastroparesis, H/o GERD and gastroparesis Headaches, PAM/CKD, chronic anemia CRC screen - UTD, per HPI Diverticulosis S/p cholecystectomy, h/o J tube placement and dislodgement H/o elevated lipase - not this time Mild cognitive impairment - history is usually a bit difficult CP, GERD History of Present Illness History of Present Illness occassional severe abd pain did vomit last night, and did not feel well enough to DC home may try to DC later today, any time if she feels well enough to go , she had planned to appear the DC plan yesterday Slow improvement Known gastroparesis Vitals Vitals Vital Signs Date Time Temp Pulse Resp B/P (MAP) Pulse Ox O2 Delivery O2 Flow Rate FiO2 04/25/18 11:00 98.8 69 17 151/87 (108) 100 Room Air 98.8 Physical Exam General: Alert, Oriented X3, Cooperative, No acute distress Heart: Regular rate (SR), Normal S1, Normal S2, No murmurs Lungs: Clear, Other Abdomen: Other (abd tenderness) Extremities: No cyanosis, No edema Skin: No breakdown, No significant lesion Labs LABS Laboratory Tests Test 04/24/18 16:13 04/24/18 20:19 04/25/18 06:59 04/25/18 11:28 Glucose (Fingerstick) 129 mg/dL (70-99) 112 mg/dL (70-99) 110 mg/dL (70-99) 122 mg/dL (70-99) Assessment and Plan Assessmemt and Plan Problems Medical Problems: (1) Gastroparesis Status: Acute (2) Headache Status: Acute (3) Renal failure Status: Acute Comment Review of Relevant I have reviewed the following items mert (where applicable) has been applied. Labs Laboratory Tests Test 04/23/18 16:25 04/23/18 20:43 04/24/18 04:10 04/24/18 07:32 Glucose (Fingerstick) 99 mg/dL (70-99) 126 mg/dL (70-99) 122 mg/dL (70-99) Sodium Level 141 mmol/L (136-145) Potassium Level 3.1 mmol/L (3.5-5.1) Chloride Level 103 mmol/L (98-107) Carbon Dioxide Level 25 mmol/L (21-32) Anion Gap 13 (6-14) Blood Urea Nitrogen 7 mg/dL (7-20) Creatinine 1.3 mg/dL (0.6-1.0) Estimated GFR (Cockcroft-Gault) 49.0 Glucose Level 92 mg/dL (70-99) Calcium Level 9.6 mg/dL (8.5-10.1) Test 04/24/18 11:21 04/24/18 16:13 04/24/18 20:19 04/25/18 06:59 Glucose (Fingerstick) 117 mg/dL (70-99) 129 mg/dL (70-99) 112 mg/dL (70-99) 110 mg/dL (70-99) Test 04/25/18 11:28 Glucose (Fingerstick) 122 mg/dL (70-99) Laboratory Tests Test 04/24/18 16:13 04/24/18 20:19 04/25/18 06:59 04/25/18 11:28 Glucose (Fingerstick) 129 mg/dL (70-99) 112 mg/dL (70-99) 110 mg/dL (70-99) 122 mg/dL (70-99) Microbiology 04/19/18 Urine Culture - Final, Complete 04/19/18 Urine Culture Result 1 (CABRERA) - Final, Complete Medications Current Medications Ondansetron HCl (Zofran) 8 mg 1X ONCE IV Last administered on 04/19/18at 12:30 ; Start 04/19/18 at 12:30; Stop 04/19/18 at 12:31; Status DC Morphine Sulfate (Morphine Sulfate) 4 mg 1X ONCE IV Last administered on at 12:30; Start 04/19/18 at 12:30; Stop 04/19/18 at 12:31; Status DC Sodium Chloride 1,000 ml @ 1,000 mls/hr 1X ONCE IV Last administered on at 12:30; Start 04/19/18 at 12:30; Stop 04/19/18 at 13:29; Status DC Morphine Sulfate (Morphine Sulfate) 4 mg 1X ONCE IV Last administered on at 15:37; Start 04/19/18 at 15:15; Stop 04/19/18 at 15:16; Status DC Ondansetron HCl (Zofran) 4 mg PRN Q8HRS PRN IV NAUSEA/VOMITING Last administered on 04/20/18 02:28; Start 04/19/18 at 15:15; Stop 04/20/18 at 10:34 ; Status DC Morphine Sulfate (Morphine Sulfate) 2 mg PRN Q2HR PRN IV PAIN Last administered on 04/20/18 10:30; Start 04/19/18 at 15:15; Stop 04/20/18 at 15:14 ; Status DC Sodium Chloride 1,000 ml @ 75 mls/hr [id number] IV Last administered on 04:41; Start 04/19/18 at 15:06; Stop 04/20/18 at 15:05; Status DC Prochlorperazine Edisylate (Compazine) 10 mg PRN Q6HRS PRN IV NAUSEA/VOMITING 2ND CHOICE; Start 04/19/18 at 18:45 Amlodipine Besylate (Norvasc) 10 mg BID PO Last administered on 04/21/18 19:54 ; Start 04/19/18 at 21:00; Stop 04/22/18 at 08:26; Status DC Docusate Sodium (Colace) 100 mg DAILY PO ; Start 04/20/18 at 09:00; Stop at 09:00; Status DC Acetaminophen/ Hydrocodone Bitart (Lortab 5/325) 1 tab PRN BID PRN PO PAIN Last administered on 04/24/18 16:04; Start 04/19/18 at 18:45 Levothyroxine Sodium (Synthroid) 100 mcg DAILY05 PO Last administered on 04:51; Start 04/20/18 at 05:00 Metoclopramide HCl (Reglan) 10 mg PRN TID PRN PO NAUSEA; Start 04/19/18 at 18: 45; Stop 04/20/18 at 09:47; Status DC Metoprolol Succinate (Toprol Xl) 100 mg DAILY PO Last administered on 04/25/18 08:22; Start 04/20/18 at 09:00 Trazodone HCl (Desyrel) 50 mg QHS PO Last administered on 04/24/18 20:31; Start 04/19/18 at 21:00 Zolpidem Tartrate (Ambien) 5 mg PRN QHS PRN PO INSOMNIA Last administered on 20:46; Start 04/19/18 at 18:45 Insulin Glargine (Lantus) 20 units QHS SQ Last administered on 04/24/18 20:44; Start 04/19/18 at 21:00 Ferrous Sulfate (Feosol) 325 mg DAILYWBKFT PO Last administered on 04/20/18 11 :20; Start 04/20/18 at 08:00 Pantoprazole Sodium (Protonix) 40 mg DAILYAC PO ; Start 04/20/18 at 07:30; Stop 04/20/18 at 09:47; Status DC Simvastatin (Zocor) 20 mg HS PO Last administered on 04/24/18 20:31; Start at 21:00 Sucralfate (Carafate) 1 gm QIDACHS PO Last administered on 04/25/18 11:19; Start 04/19/18 at 21:00 Docusate Sodium (Colace) 100 mg DAILY PO Last administered on 04/23/18 08:45; Start 04/19/18 at 20:00 Polyethylene Glycol (miraLAX PACKET) 17 gm 1X ONCE PO Last administered on 19:44; Start 04/19/18 at 19:30; Stop 04/19/18 at 19:31; Status DC Polyethylene Glycol (miraLAX PACKET) 17 gm DAILY PO Last administered on 08:44; Start 04/20/18 at 09:00 Ceftriaxone Sodium (Rocephin) 1 gm Q24H IVP Last administered on 04/23/18 20: 59; Start 04/19/18 at 20:00; Stop 04/24/18 at 16:56; Status DC Heparin Sodium (Porcine) (Heparin Sodium) 5,000 unit BID SQ Last administered on 04/25/18 08:33; Start 04/19/18 at 21:00 Pantoprazole Sodium (PROTONIX VIAL for IV PUSH) 40 mg DAILYAC IVP Last administered on 04/24/18 06:35; Start 04/21/18 at 07:30; Stop 04/24/18 at 12:30; Status DC Metoclopramide HCl (Reglan Vial) 5 mg QIDACHS IV Last administered on 04/24/18 10:52; Start 04/20/18 at 11:30; Stop 04/24/18 at 12:31; Status DC Ondansetron HCl (Zofran) 4 mg PRN Q6HRS PRN IV NAUSEA/VOMITING 1ST CHOICE Last administered on 04/23/18at 10:28; Start 04/20/18 at 10:45 Prochlorperazine Edisylate (Compazine) 10 mg PRN Q6HRS PRN IV NAUSEA/VOMITING; Start 04/20/18 at 10:45; Stop 04/20/18 at 15:24; Status DC Celecoxib (CeleBREX) 100 mg BID PO ; Start 04/20/18 at 12:15; Stop 04/20/18 at 12:57; Status DC Lactobacillus Rhamnosus (Culturelle) 1 cap BID PO Last administered on 08:20; Start 04/20/18 at 21:00 Morphine Sulfate (Morphine Sulfate) 2 mg PRN Q2HR PRN IV PAIN Last administered on 04/23/18 21:18; Start 04/20/18 at 17:45; Stop 04/24/18 at 10:34 ; Status DC Amlodipine Besylate (Norvasc) 10 mg DAILY PO Last administered on 04/25/18 08: 22; Start 04/22/18 at 09:00 Morphine Sulfate (Morphine Sulfate) 4 mg PRN Q2HR PRN IV PAIN Last administered on 04/24/18at 13:11; Start 04/24/18 at 10:45 Potassium Chloride (Klor-Con) 40 meq 1X ONCE PO Last administered on 04/24/18 10:50; Start 04/24/18 at 11:00; Stop 04/24/18 at 11:01; Status DC Potassium Chloride (Klor-Con) 20 meq DAILYWBKFT PO Last administered on 08:22; Start 04/25/18 at 08:00 Magnesium Sulfate 50 ml @ 25 mls/hr 1X ONCE IV Last administered on 04/24/18 10:52; Start 04/24/18 at 11:00; Stop 04/24/18 at 12:59; Status DC Metoclopramide HCl (Reglan Oral Solution) 5 mg QIDACHS PO Last administered on 04/25/18 11:20; Start 04/24/18 at 16:30 Pantoprazole Sodium (Protonix) 40 mg DAILYAC PO Last administered on 04/25/18 08:21; Start 04/25/18 at 07:30 Potassium Chloride (Klor-Con) 20 meq 1X ONCE PO ; Start 04/24/18 at 17:00; Stop 04/24/18 at 17:01; Status DC Ondansetron HCl (Zofran Odt) 8 mg PRN Q8HRS PRN PO NAUSEA/VOMITING Last administered on 04/24/18 16:23; Start 04/24/18 at 16:30 Ciprofloxacin (Cipro) 250 mg BID PO Last administered on 04/25/18 08:23; Start 04/24/18 at 17:30 Acetaminophen/ Hydrocodone Bitart (Lortab 5/325) 1 tab PRN Q4HRS PRN PO MODERATE PAIN Last administered on 04/25/18 08:21; Start 04/24/18 at 21:45 Active Scripts Active Cipro (Ciprofloxacin Hcl) 250 Mg Tablet 1 Tab PO BID Levemir Flextouch (Insulin Detemir) 100 Unit/1 Ml Insuln.pen 20 Unit SQ QHS 30 Days Reported Metformin Hcl 1,000 Mg Tablet 1,000 Mg PO BIDWMEALS Ferralet 90 Dual-Iron Tablet (Iron, Carb & Gluc/Fa/B12/C/Dss) 1 Each Tablet 1 Tab PO DAILY Reglan (Metoclopramide Hcl) 10 Mg Tablet 1 Tab PO TID PRN Sucralfate 1 Gm Tablet 1 Tab PO QIDACHS Metoprolol Succinate ( Xl ) (Metoprolol Succinate) 100 Mg Tab.er.24h 1 Tab PO DAILY Simvastatin 20 Mg Tablet 1 Tab PO QHS [place] 5-325 Tablet (Acetaminophen/Hydrocodone Bitart) 1 Each Tablet 1 Tab PO BID PRN Levothyroxine Sodium 100 Mcg Tablet 1 Tab PO DAILY05 Docusate Sodium 100 Mg Capsule 1 Cap PO DAILY Trazodone Hcl 50 Mg Tablet 50 Mg PO QHS Omeprazole 40 Mg Capsule.dr 1 Cap PO DAILY06 Ibuprofen 800 Mg Tablet 800 Mg PO TID PRN Losartan-Hctz 100-12.5 Mg Tab (Losartan/Hydrochlorothiazide) 1 Each Tablet 1 Tab PO DAILY Ambien (Zolpidem Tartrate) 5 Mg Tablet 5 Mg PO HS PRN Protonix (Pantoprazole Sodium) 20 Mg Tablet.dr 40 Mg PO DAILYAC Amlodipine Besylate 10 Mg Tablet 10 Mg PO BID Vitals/I & O Vital Sign - Last 24 Hours 04/24/18 04/24/18 04/24/18 04/24/18 13:11 13:41 15:00 16:04 Temp 98.1 98.1 Pulse 73 Resp 18 18 17 18 B/P (MAP) 128/74 (92) Pulse Ox 98 O2 Delivery Room Air Room Air Room Air 04/24/18 04/24/18 04/24/18 04/24/18 17:04 19:00 19:45 21:54 Temp 99.3 99.3 Pulse 62 Resp 18 16 B/P (MAP) 118/60 (79) Pulse Ox 99 O2 Delivery Room Air Room Air Room Air Room Air 04/24/18 04/25/18 04/25/18 04/25/18 23:00 03:00 03:05 07:00 Temp 98.7 98.5 98.8 98.7 98.5 98.8 Pulse 70 78 74 Resp 16 16 17 B/P (MAP) 116/76 (89) 111/75 (87) 144/82 (102) Pulse Ox 97 98 97 O2 Delivery Room Air Room Air Room Air Room Air 04/25/18 04/25/18 04/25/18 04/25/18 08:00 08:21 08:22 08:22 Pulse 74 74 B/P (MAP) 144/82 144/82 Pulse Ox 97 O2 Delivery Room Air Room Air 04/25/18 04/25/18 10:02 11:00 Temp 98.8 98.8 Pulse 69 Resp 17 B/P (MAP) 151/87 (108) Pulse Ox 97 100 O2 Delivery Room Air Room Air Intake and Output 04/24/18 04/24/18 04/25/18 15:00 23:00 07:00 Intake Total 170 ml 120 ml Output Total 300 ml 30 ml Balance -130 ml 90 ml Nutrition Consultation Dietary Evaluation: Recommendations by RD: Add supplement feedings Comments: offer supplements, snacks from unit prn Expected Outcomes/Goals: to meet > 75% est nutr needs- not met, goal ongoing Interpretation of weight loss: >7.5% in 3 months Malnutrition Findings: Food and Nutrition Intake (Sev: <50% est energy req 5days Weight Status: Overweight LINDA CENTENO MD Apr 25, 2018 12:46
--- NOTE | 2018-04-25 13:00 | NUR ---
Discharge Note: HI CRYSTAL Discharge instructions and discharge home medications reviewed with Patient and a copy given. All questions have been answered and understanding verbalized. The following instructions and handouts were given: ABDOMINAL PAIN,ACUTE KIDNEY INJURY, URINARY TRACT INFECTION, GENERAL HEADACHE AND GASTROPARESIS. Discontinued lines and drains: Peripheral IV intact. Patient discharged to Home w/home health with Family Member via Wheelchair
--- NOTE | 2018-04-25 14:36 | PDOC ---
PROGRESS NOTES Assessment Assessment Headaches, resolved since 04/24/18. Right temporal lobe cavernous malformation. UTI. Abdominal pain, acute on chronic. Vomiting. UTI. Chronic narcotic use for more than 10 years. Narcotic dependence. DM HTN. HLD. Hypothyroidism. GERD. RECOMMENDATIONS/PLAN: Consulted GI for chronic abdominal pain. Treat medical diseases. Consulted NS for right temporal lobe cavernous malformation and no intervention at the present time. OT/PT. HISTORY OF THE PRESENT ILLNESS: 72-y-old AA female patient with above medical diseases and chronic Narcotic use/ abuse has been having headaches about 5 times a month, but her headaches are increased this time with vomiting to come to the ER of [facility]. She stated her headaches were at frontal head and occipital head as well we dull pain rated 8-9 /10. No focalized sensory or motor deficits noted. Headaches are controlled since 04/23/18. PAST MEDICAL HISTORY: Please see above. PAST SURGERY HISTORY: Cataract surgery. Cholecystectomy Hysterectomy. ALLERGY: Unknown MEDICATIONS: Refer to [facility] FAMILY HISTORY: Non contributory. SOCIAL HISTORY: Lives with her daughter at home. Denies current smoking, drinking, and illicit drug use. REVIEW OF SYSTEMS: Constitutional: Obesity. Head: No traumatic brain or head injury. Skin: No edema, or rash. Ear: No infection. Eyes: No vision loss or color blindness. Nose: No bleeding or purulent discharges. Hearing: No hearing decrease. Neck: No injury. Breast: No history of cancer, masses,or discharges. Cardiac: HTN, HLD. Pulmonary: No OPD. GI: GERD. Urinary/genital: UTI. Endocrinologic: Diabetes Mellitus, hypothyroidism, obesity. Skeletomuscular: No muscular atrophy, deformity. Neurological: see HP. Psychiatric: Chronic narcotics use/abuse. Otherwise, not [id number] review of systems. PHYSICAL EXAMINATION: General appearance is in subacute distress. HEENT: Normocephalic and nontraumatic. Eyes, nose, ears, and throat are unremarkable. Neck is supple. No lymphadenopathy. No bruits are heard over the carotid artery. No crepitus. Cardiovascular: S1, S2, regular rate and rhythm. Pulmonary: Clear to auscultation bilaterally. Abdomen: Bowel sounds are positive. Abdomen is soft, nontender, and nondistended. Extremities: No rash, lesions, or edema. No restriction of range of motion NEUROLOGICAL EXAMINATION: Awake. Oriented to time, place and person. PERRL. EOMI. CN: no focal findings. Muscle tone: within normal. Muscle strength: 5 DTR: 2 Plantar reflex: Flexor response bilaterally Gait: Able to walk in room with a walker. Sensory exam: no abnormal findings. No acute cerebellar signs elicited. F-T-N test fine. Objective Objective Vital Signs Date Time Temp Pulse Resp B/P (MAP) Pulse Ox O2 Delivery O2 Flow Rate FiO2 04/25/18 13:06 100 Room Air 04/25/18 11:00 98.8 69 17 151/87 (108) 98.8 Intake and Output 04/25/18 07:00 Intake Total 290 ml Output Total 330 ml Balance -40 ml Intake Oral 240 ml IV Total 50 ml Output Urine Total 300 ml Emesis 30 ml # Voids 4 Vitals Signs Vitals VS - Last 72 Hours, by Label Date Time Temp Pulse Resp B/P (MAP) Pulse Ox O2 Delivery O2 Flow Rate FiO2 04/25/18 13:06 100 Room Air 04/25/18 11:00 98.8 69 17 151/87 (108) 100 Room Air 98.8 04/25/18 10:02 97 Room Air 04/25/18 08:22 74 144/82 04/25/18 08:22 74 144/82 04/25/18 08:21 97 Room Air 04/25/18 08:00 Room Air 04/25/18 07:00 98.8 74 17 144/82 (102) 97 Room Air 98.8 04/25/18 03:05 Room Air 04/25/18 03:00 98.5 78 16 111/75 (87) 98 Room Air 98.5 04/24/18 23:00 98.7 70 16 116/76 (89) 97 Room Air 98.7 04/24/18 21:54 Room Air 04/24/18 19:45 Room Air 04/24/18 19:00 99.3 62 16 118/60 (79) 99 Room Air 99.3 04/24/18 17:04 18 Room Air 04/24/18 16:04 18 Room Air 04/24/18 15:00 98.1 73 17 128/74 (92) 98 Room Air 98.1 04/24/18 13:41 18 04/24/18 13:11 18 Room Air 04/24/18 11:18 Room Air 04/24/18 11:00 98.1 68 17 120/68 (85) 99 Room Air 98.1 04/24/18 10:48 18 Room Air 04/24/18 09:02 73 119/70 04/24/18 09:01 73 119/70 04/24/18 08:00 Room Air 04/24/18 07:00 98.4 73 17 119/70 (86) 98 Room Air 98.4 Laboratory Laboratory Laboratory Tests Test 04/24/18 16:13 04/24/18 20:19 04/25/18 06:59 04/25/18 11:28 Glucose (Fingerstick) 129 mg/dL (70-99) 112 mg/dL (70-99) 110 mg/dL (70-99) 122 mg/dL (70-99) Microbiology 04/19/18 Urine Culture - Final, Complete 04/19/18 Urine Culture Result 1 (CABRERA) - Final, Complete Medication Medications Current Medications Acetaminophen/ Hydrocodone Bitart (Lortab 5/325) 1 tab PRN Q4HRS PRN PO MODERATE PAIN Last administered on 04/25/18 13:06; Start 04/24/18 at 21:45 Ciprofloxacin (Cipro) 250 mg BID PO Last administered on 04/25/18 08:23; Start 04/24/18 at 17:30 Metoclopramide HCl (Reglan Oral Solution) 5 mg QIDACHS PO Last administered on 04/25/18 11:20; Start 04/24/18 at 16:30 Ondansetron HCl (Zofran Odt) 8 mg PRN Q8HRS PRN PO NAUSEA/VOMITING Last administered on 04/24/18at 16:23; Start 04/24/18 at 16:30 Pantoprazole Sodium (Protonix) 40 mg DAILYAC PO Last administered on 04/25/18 08:21; Start 04/25/18 at 07:30 Potassium Chloride (Klor-Con) 20 meq 1X ONCE PO ; Start 04/24/18 at 17:00; Stop 04/24/18 at 17:01; Status DC Potassium Chloride (Klor-Con) 20 meq DAILYWBKFT PO Last administered on at 08:22; Start 04/25/18 at 08:00 Comment Review of Relevant I have reviewed the following items mert (where applicable) has been applied. KAMRYN CALLEJAS MD Apr 25, 2018 14:36
--- NOTE | 2018-05-20 14:03 | PDOC3 ---
Discharge Summary Visit Information Date of Admission: Apr 19, 2018 Date of Discharge: Apr 25, 2018 Admitting Diagnosis: nausea AND VOMITING Final Diagnosis Recurrent n/v - w. abdominal pain, gastroparesis, H/o GERD and gastroparesis Headaches, CKD, w/ chronic anemia of renal disease Diverticulosis S/p cholecystectomy, h/o J tube placement and dislodgement Mild cognitive impairment - GERD weakness and debility, acquired Problems Medical Problems: (1) Gastroparesis Status: Acute (2) Headache Status: Acute (3) Renal failure Status: Acute Brief Hospital Course Allergies Allergies Coded Allergies Type Severity Reaction Last Updated Verified Sulfa (Sulfonamide Antibiotics) Allergy Intermediate 04/19/18 Yes prochlorperazine Adverse Reaction Intermediate DIZZY 04/19/18 Yes Brief Hospital Course Ms. Doherty is a 72 old female with prior abd problems, admit with exacerbation of similar, with nausea and vomiting and weakness occassional severe abd pain CV consulted for chest pain, no testing, likely GI, GERD Gi followed, add reglan, nausea meds, symptom management Discharge Information Condition at Discharge: Improved Follow Up: Weeks Disposition/Orders: D/C to Home w/ HH Scheduled Amlodipine Besylate (Amlodipine Besylate) 10 Mg Tablet, 10 MG PO BID, #60 ( Reported) Entered as Reported by: SANDRA VASQUEZ on 07/31/16 1800 Last Action: Continued on 04/19/181838 by LINDA CENTENO Ciprofloxacin Hcl (Cipro) 250 Mg Tablet, 1 TAB PO BID for uti, #6 Prescribed by: LINDA CENTENO on 04/24/18 1417 Docusate Sodium (Docusate Sodium) 100 Mg Capsule, 1 CAP PO DAILY, #30 (Reported) Entered as Reported by: DAVE LACKEY on 10/13/17 0907 Last Action: Continued on 04/19/181838 by LINDA CENTENO Insulin Detemir (Levemir Flextouch) 100 Unit/1 Ml Insuln.pen, 20 UNIT SQ QHS for 30 Days Prescribed by: MARIBEL MARIEE on 04/28/17 1118 Last Action: Converted on 04/19/181838 by LINDA CENTENO Iron, Carb & Gluc/Fa/B12/C/Dss (Ferralet 90 Dual-Iron Tablet) 1 Each Tablet, 1 TAB PO DAILY, #90 Ref 3 (Reported) Entered as Reported by: DAVE LACKEY on 10/13/17906 Last Action: Converted on 04/19/181838 by LINDA CENTENO Levothyroxine Sodium (Levothyroxine Sodium) 100 Mcg Tablet, 1 TAB PO DAILY05, # 30 Ref 5 (Reported) Entered as Reported by: DAVE LACKEY on 10/13/17906 Last Action: Continued on 04/19/181838 by LINDA CENTENO Losartan/Hydrochlorothiazide (Losartan-Hctz 100-12.5 Mg Tab) 1 Each Tablet, 1 TAB PO DAILY, #30 Ref 5 (Reported) Entered as Reported by: DAVE LACKEY on 10/13/17906 Last Action: HELD on 04/19/181838 by LINDA CENTENO Metformin Hcl (Metformin Hcl) 1,000 Mg Tablet, 1,000 MG PO BIDWMEALS, (Reported) Entered as Reported by: DAVE LACKEY on 10/13/17906 Last Action: HELD on 04/19/181838 by LINDA CENTENO Metoprolol Succinate (Metoprolol Succinate ( Xl )) 100 Mg Tab.er.24h, 1 TAB PO DAILY, #30 Ref 5 (Reported) Entered as Reported by: DAVE LACKEY on 10/13/17906 Last Action: Continued on 04/19/181838 by LINDA CENTENO Omeprazole (Omeprazole) 40 Mg Capsule.dr, 1 CAP PO DAILY06, #30 Ref 3 (Reported) Entered as Reported by: DAVE LACKEY on 10/13/17906 Last Action: Converted on 04/19/181838 by LINDA CENTENO Pantoprazole Sodium (Protonix) 20 Mg Tablet.dr, 40 MG PO DAILYAC, (Reported) Entered as Reported by: Carolina Aviles RPH on 04/07/17 1428 Last Action: HELD on 04/19/181838 by LINDA CENTENO Simvastatin (Simvastatin) 20 Mg Tablet, 1 TAB PO QHS, #30 Ref 5 (Reported) Entered as Reported by: DAVE LACKEY on 10/13/17906 Last Action: Converted on 04/19/181838 by LINDA CENTENO Sucralfate (Sucralfate) 1 Gm Tablet, 1 TAB PO QIDACHS, #120 Ref 3 (Reported) Entered as Reported by: DAVE LACKEY on 10/13/17906 Last Action: Converted on 04/19/181838 by LINDA CENTENO Trazodone Hcl (Trazodone Hcl) 50 Mg Tablet, 50 MG PO QHS, (Reported) Entered as Reported by: DAVE LACKEY on 10/13/17906 Last Action: Continued on 04/19/181838 by LINDA CENTENO Scheduled PRN Hydrocodone/Apap 5-325 ([place] 5-325 Tablet) 1 Each Tablet, 1 TAB PO BID PRN for PAIN, #60 (Reported) Entered as Reported by: DAVE LACKEY on 10/13/17906 Last Action: Continued on 04/19/181838 by LINDA CENTENO Ibuprofen (Ibuprofen) 800 Mg Tablet, 800 MG PO TID PRN for INFLAMMATION, ( Reported) Entered as Reported by: DAVE LACKEY on 10/13/17906 Last Action: HELD on 04/19/181838 by LINDA CENTENO Metoclopramide Hcl (Reglan) 10 Mg Tablet, 1 TAB PO TID PRN for NAUSEA, #90 ( Reported) Entered as Reported by: DAVE LACKEY on 10/13/17906 Last Action: Continued on 04/19/181838 by LINDA CENTENO Zolpidem Tartrate (Ambien) 5 Mg Tablet, 5 MG PO HS PRN for INSOMNIA, Ref 0 ( Reported) Entered as Reported by: Coleman Springer RN on 05/25/17 0530 Last Action: Continued on 04/19/181838 by LINDA CENTENO Patient Instructions Patient Instructions > 30 min face to face try to DC to SNU, insurance problem, prior similar likely, will try home health LINDA CENTENO MD May 20, 2018 14:03
== END 2018-04-25 13:30 | disposition home health service (06) | DRG 73 ==
LOC: ER 11:10 → 5 NORTH 15:19
PROVIDERS: ADMIT Internal Medicine; ATTEND Internal Medicine
DX: E11.43 Type 2 diabetes mellitus with diabetic autonomic (poly)neuropathy (principal); N17.0 Acute kidney failure with tubular necrosis; N39.0 Urinary tract infection, site not specified; F11.20 Opioid dependence, uncomplicated; K31.84 Gastroparesis; E83.52 Hypercalcemia; E87.5 Hyperkalemia; N18.9 Chronic kidney disease, unspecified; E11.22 Type 2 diabetes mellitus with diabetic chronic kidney disease; I12.9 Hypertensive chronic kidney disease with stage 1 through stage 4 chronic kidney disease, or unspecified chronic kidney disease; M47.815 Spondylosis without myelopathy or radiculopathy, thoracolumbar region; K21.9 Gastro-esophageal reflux disease without esophagitis; R00.0 Tachycardia, unspecified; E78.00 Pure hypercholesterolemia, unspecified; E89.0 Postprocedural hypothyroidism; Z90.49 Acquired absence of other specified parts of digestive tract; Z96.659 Presence of unspecified artificial knee joint; Z90.710 Acquired absence of both cervix and uterus; E78.5 Hyperlipidemia, unspecified; Z86.711 Personal history of pulmonary embolism; F41.9 Anxiety disorder, unspecified; Z83.3 Family history of diabetes mellitus; Z82.49 Family history of ischemic heart disease and other diseases of the circulatory system; K57.30 Diverticulosis of large intestine without perforation or abscess without bleeding; R41.89 Other symptoms and signs involving cognitive functions and awareness; E86.0 Dehydration; E87.6 Hypokalemia; F03.90 Unspecified dementia, unspecified severity, without behavioral disturbance, psychotic disturbance, mood disturbance, and anxiety; G89.29 Other chronic pain; M19.90 Unspecified osteoarthritis, unspecified site
CPT/HCPCS: 36415; 70450; 70551; 74176; 76770; 80048; 80053; 80061; 80307; 81001; 82310; 82962; 83540; 83550; 83690; 84443; 84484; 85025; 87086; 93005; 93306; 96361; 96374; 96375; 96376; C9113; J0696; J1644; J1815; J2270; J2405; J2765; J3475; J7030; J8597; Q0162; 97116; 97530; 97535; 99285-25

== ENCOUNTER 2018-06-18 12:16 | Inpatient (IN) | payer MEDICARE ==
[~2018-06-18] VITALS: Ht 167.6 cm; Wt 74.8 kg
[~2018-06-18 12:16] MED LIST changes: +CIPR250T30 PO
[2018-06-18 13:20] LABS: BASO # 0.1 x10^3/uL (0.0-0.2); BASO % 1 % (0-3); EOS % 1 % (0-3); HEMATOCRIT 33.8 % (36.0-47.0); HEMOGLOBIN 11.1 g/dL (12.0-15.5); LYMPH # 1.7 x10^3/uL (1.0-4.8); LYMPH % 25 % (24-48); MEAN CORPUSCULAR HEMOGLOBIN 31 pg (25-35); MEAN CORPUSCULAR HGB CONC 33 g/dL (31-37); MEAN CORPUSCULAR VOLUME 93 fL (79-100); MONO # 0.4 x10^3/uL (0.0-1.1); MONO % 6 % (0-9); NEUT # 4.8 x10^3uL (1.8-7.7); NEUT % 68 % (31-73); PLATELET COUNT 189 x10^3/uL (140-400); RED BLOOD COUNT 3.62 x10^6/uL (3.50-5.40); RED CELL DISTRIBUTION WIDTH 14.4 % (11.5-14.5); WHITE BLOOD COUNT 7.1 x10^3/uL (4.0-11.0)
[2018-06-18 13:27] LABS: CALCIUM 10.3 mg/dL (8.5-10.1); GFR 29.8; POTASSIUM 5.6 mmol/L (3.5-5.1)
[2018-06-18 13:29] LABS: PROTHROMBIN TIME PATIENT 13.5 SEC (11.7-14.0)
[2018-06-18 13:34] LABS: ALBUMIN/GLOBULIN RATIO 1.1 (1.0-1.7); MAGNESIUM 1.2 mg/dL (1.8-2.4); TOTAL BILIRUBIN 0.3 mg/dL (0.2-1.0); TOTAL PROTEIN 7.8 g/dL (6.4-8.2)
--- NOTE | 2018-06-18 13:39 | RAD ---
CHEST PA LATERAL History: A. Fib. Comparison with October 13, 2017 FINDINGS: The aorta is tortuous and ectatic. The heart size is stable, mildly enlarged. No evidence of a pneumothorax, infiltrate or pleural effusion. Linear scarring or atelectasis left midlung, similar to prior. IMPRESSION: Stable chronic findings, no acute infiltrate. Electronically signed by: Krishna Naik MD (06/18/2018 1:36 PM) [id number]
[2018-06-18 13:54] LABS: D-DIMER 15.25 ug/mlFEU (0.00-0.50)
[2018-06-18] MEDS ORDERED: FAMOTIDINE 20 MG/2 ML VIAL IVP ONE (14:30)
--- NOTE | 2018-06-18 15:08 | EKG ---
[facility] [address] [place] [address] Test Date: 2018-06-18 Test Time: 12:50:54 Pat Name: HI CRYSTAL Department: Room: Gender: F Camp Tender: : 1945 Requested By: RIKKI MARK Order Number: [id number] Reading MD: Denzel Hernandez Measurements Intervals [place] Rate: 63 P: 31 PA: 154 QRS: -22 QRSD: 76 T: -17 QT: 366 QTc: 377 Interpretive Statements SINUS RHYTHM LEFTWARD AXIS R-S TRANSITION ZONE IN V LEADS DISPLACED TO THE LEFT T ABNORMALITY IN ANTERIOR LEADS POSSIBLE ISCHEMIA ABNORMAL ECG Electronically Signed On 06-24-2018 11:53:31 CDT by Denzel Hernandez
[2018-06-18] MEDS ORDERED: ALBUTEROL SULFATE 2.5 MG/3 ML NEBU. CONT NEB ONE (15:15)
[2018-06-18] MEDS ORDERED: MAGNESIUM SULFATE 2GM 50 ML IV ONE (15:30)
--- NOTE | 2018-06-18 15:33 | PHYS DOC ---
Past Medical History Past Medical History: Diabetes-Type II, GERD, High Cholesterol, Hypertension, Hypothyroid, Other Additional Past Medical Histor: Hernia,gastroporesis Past Surgical History: Cholecystectomy, Hysterectomy, Knee Replacement, Other Additional Past Surgical Histo: EGD,Cataract removed BILAT EYES, GTUBE PLACEMENT AND D/C Alcohol Use: None Drug Use: None Adult General Chief Complaint Chief Complaint: SHORTNESS OF BREATH [facility] HPI Patient is a 72 year old female who presents with complaining of shortness of breath and abnormal EKG. Patient complaining of episode of shortness of breath with supine position for 1-2 weeks with marked lower extremity edema for 3 weeks and generalized weakness. Patient was seen by her primary care physician 4 days ago and had extensive evaluation. Patient was told by her primary care physician to come to the emergency room because of low potassium and atrial fibrillation in EKG. Patient complaining of mild cough without fever and chills, focal neuro deficit, nausea and vomiting. Patient complaining of chronic abdominal pain for months. Review of Systems Review of Systems Constitutional: Denies fever or chills [] Eyes: Denies change in visual acuity, redness, or eye pain [] HENT: Denies nasal congestion or sore throat [] Respiratory: Reports cough and shortness of breath Cardiovascular: No additional information not addressed in HPI [] GI: Denies abdominal pain, nausea, vomiting, bloody stools or diarrhea [] : Denies dysuria or hematuria [] Musculoskeletal: Denies back pain or joint pain [] Integument: Denies rash or skin lesions [] Neurologic: Denies headache, focal weakness or sensory changes [] Endocrine: Denies polyuria or polydipsia [] All other systems were reviewed and found to be within normal limits, except as documented in this note. Current Medications Current Medications Current Medications Medications (Trade) Dose Ordered Sig/Alo Start Time Stop Time Status Last Admin Dose Admin Famotidine (Pepcid Vial) 20 mg 1X ONCE 06/18/18 14:30 06/18/18 14:32 DC 06/18/18 14:36 20 MG Allergies Allergies Allergies Coded Allergies Type Severity Reaction Last Updated Verified Sulfa (Sulfonamide Antibiotics) Allergy Intermediate 04/19/18 Yes prochlorperazine Adverse Reaction Intermediate DIZZY 04/19/18 Yes Physical Exam Physical Exam Constitutional: Well developed, well nourished,mild distress, non-toxic appearance. [] HENT: Normocephalic, atraumatic, oropharynx moist. Eyes: PERRLA, EOMI, conjunctiva normal, no discharge. [] Neck: Normal range of motion, no tenderness, supple, no stridor. [] Cardiovascular:Heart rate regular rhythm, no murmur [] Lungs & Thorax: Bilateral breath sounds clear to auscultation [] Abdomen: Bowel sounds normal, soft, no tenderness, no masses, no pulsatile masses. [] Skin: Warm, dry, no erythema, no rash. [] Back: No tenderness, no CVA tenderness. [] Extremities: No tenderness, no cyanosis, no clubbing, ROM intact, bilateral lower extremity trace edema. [] Neurologic: Alert and oriented X 3, normal motor function, normal sensory function, no focal deficits noted. [] Psychologic: Affect normal, judgement normal, mood normal. [] Current Patient Data Vital Signs Vital Signs Date Time Temp Pulse Resp B/P (MAP) Pulse Ox O2 Delivery O2 Flow Rate FiO2 06/18/18 14:00 69 18 108/72 (84) 97 Room Air 06/18/18 12:43 98.7 98.7 Lab Values Laboratory Tests Test 06/18/18 13:10 White Blood Count 7.1 x10^3/uL (4.0-11.0) Red Blood Count 3.62 x10^6/uL (3.50-5.40) Hemoglobin 11.1 g/dL (12.0-15.5) L Hematocrit 33.8 % (36.0-47.0) L Mean Corpuscular Volume 93 fL (79-100) Mean Corpuscular Hemoglobin 31 pg (25-35) Mean Corpuscular Hemoglobin Concent 33 g/dL (31-37) Red Cell Distribution Width 14.4 % (11.5-14.5) Platelet Count 189 x10^3/uL (140-400) Neutrophils (%) (Auto) 68 % (31-73) Lymphocytes (%) (Auto) 25 % (24-48) Monocytes (%) (Auto) 6 % (0-9) Eosinophils (%) (Auto) 1 % (0-3) Basophils (%) (Auto) 1 % (0-3) Neutrophils # (Auto) 4.8 x10^3uL (1.8-7.7) Lymphocytes # (Auto) 1.7 x10^3/uL (1.0-4.8) Monocytes # (Auto) 0.4 x10^3/uL (0.0-1.1) Eosinophils # (Auto) 0.0 x10^3/uL (0.0-0.7) Basophils # (Auto) 0.1 x10^3/uL (0.0-0.2) Prothrombin Time 13.5 SEC (11.7-14.0) Prothrombin Time INR 1.1 (0.8-1.1) D-Dimer (Tammi) 15.25 ug/mlFEU (0.00-0.50) H Sodium Level 135 mmol/L (136-145) L Potassium Level 5.6 mmol/L (3.5-5.1) H Chloride Level 102 mmol/L (98-107) Carbon Dioxide Level 17 mmol/L (21-32) L Anion Gap 16 (6-14) H Blood Urea Nitrogen 23 mg/dL (7-20) H Creatinine 2.0 mg/dL (0.6-1.0) H Estimated GFR (Cockcroft-Gault) 29.8 BUN/Creatinine Ratio 12 (6-20) Glucose Level 196 mg/dL (70-99) H Calcium Level 10.3 mg/dL (8.5-10.1) H Magnesium Level 1.2 mg/dL (1.8-2.4) L Total Bilirubin 0.3 mg/dL (0.2-1.0) Aspartate Amino Transferase (AST) 18 U/L (15-37) Alanine Aminotransferase (ALT) 10 U/L (14-59) L Alkaline Phosphatase 44 U/L (46-116) L Creatine Kinase 52 U/L (26-192) Troponin I Quantitative < 0.017 ng/mL (0.000-0.055) TU-Zjc-Q-Type Natriuretic Peptide 295 pg/mL (0-124) H Total Protein 7.8 g/dL (6.4-8.2) Albumin 4.0 g/dL (3.4-5.0) Albumin/Globulin Ratio 1.1 (1.0-1.7) Lipase 101 U/L (73-393) Laboratory Tests 06/18/18 13:10 Laboratory Tests 06/18/18 13:10 EKG EKG EKG interpreted by me. EKG at 1250 showed sinus rhythm at rate of 62 with multiple artifact, left bingham axis, inverted T in anterior leads, no acute ischemic elevation. Radiology/Procedures Radiology/Procedures [][facility] [address] [place] [address] IMAGING REPORT Signed PATIENT: HI CRYSTAL ACCOUNT: [id number] : 1945 LOCATION: ER AGE: 72 SEX: F EXAM STATUS: REG ER ORD. PHYSICIAN: RIKKI MARK MD REASON: shortness of breath PROCEDURE: CHEST PA & LATERAL CHEST PA LATERAL History: A. Fib. Comparison with October 13, 2017 FINDINGS: The aorta is tortuous and ectatic. The heart size is stable, mildly enlarged. No evidence of a pneumothorax, infiltrate or pleural effusion. Linear scarring or atelectasis left midlung, similar to prior. IMPRESSION: Stable chronic findings, no acute infiltrate. Electronically signed by: Krishna Naik MD (06/18/2018 1:36 PM) [facility] DICTATED and SIGNED BY: KRISHNA NAIK MD DATE: 06/18/187 Course & Med Decision Making Course & Med Decision Making Pertinent Labs and Imaging studies reviewed. (See chart for details) Evaluation of patient in ER showed 9-year-old female patient sent from primary care physician office because of atrial fibrillation and abnormal labs. Patient had sinus rhythm with artifact. Patient had inverted T in anterior leads. Patient had stable vital signs without hypoxia. Labs showed d-dimer of more than 15 and VQ scan is pending. Patient had magnesium of 1.2 and IV magnesium was ordered. Patient also had elevation of potassium and calcium and albuterol nebulizer was ordered. Patient complaining of chronic abdominal pain and Pepcid was given.Patient requiring admission for further evaluation and treatment. Discussed with Dr. Wood who is in agreement with admission. Discussed findings and plan with patient and family, who acknowledge understanding and agreement. Dragon Disclaimer Dragon Disclaimer This electronic medical record was generated, in whole or in part, using a voice recognition dictation system. Departure Departure Impression: Primary Impression: Shortness of breath Additional Impressions: Hypomagnesemia Hyperkalemia Hypercalcemia Renal insufficiency Anemia Uncontrolled diabetes mellitus CHF (congestive heart failure) Elevated d-dimer Disposition: 09 ADMITTED INPATIENT (1504) Admitting Physician: Telma Wood (accepted admission at 1503) Condition: GUARDED Referrals: TONY HARE MD (PCP) Critical Care Time Critical care time was 60 minutes exclusive of procedures. Problem Qualifiers Additional Impressions: Anemia Anemia type: unspecified type Qualified Codes: D64.9 - Anemia, unspecified Uncontrolled diabetes mellitus Diabetes mellitus type: other specified (including ALEJANDRO) Glycemic state: with hyperglycemia Qualified Codes: E13.65 - Other specified diabetes mellitus with hyperglycemia CHF (congestive heart failure) Heart failure type: unspecified Heart failure chronicity: unspecified Qualified Codes: I50.9 - Heart failure, unspecified RIKKI MARK MD Jun 18, 2018 15:33
[2018-06-18 16:29] VITALS: BP 138/63
[2018-06-18] MEDS ORDERED: ZOLPIDEM 5 MG TABLET. PO PRN (16:45)
[2018-06-18] MEDS ORDERED: METOCLOPRAMIDE 10 MG TABLET. PO PRN (16:45)
--- NOTE | 2018-06-18 16:58 | PDOC1 ---
History and Physical Date of Admission Date of Admission DATE: 06/18/18 TIME: 16:56 Identification/Chief Complaint Chief Complaint sent by PCP because of abnormal lipid panel? Source Source: Caregiver, Chart review, Patient History of Present Illness History of Present Illness She is not the best historian She claims she was sent by her PCP for abnormal lipid panel. I saw her in the past with this ff dx: Recurrent n/v - this time began ~1 week ago H/o GERD and gastroparesis Headaches, APM/CKD, chronic anemia CRC screen - UTD, per HPI Diverticulosis S/p cholecystectomy, h/o J tube placement and dislodgement H/o elevated lipase - not this time Mild cognitive impairment - history is usually a bit difficult CP, GERD (non cardiac) Strong symptom back then was GI related namely recurrent nausea vomiting but this is not the case now. As per triage note, PT ARRIVED POV W/ HER SON-IN-LAW. PT STATES SHE WAS BEING SEEN BY HER PCP TODAY AND WAS FOUND TO HAVE NEW ON-SET A-FIB. PT REPORTS SHE WAS SEEING HER PCP DUE TO 2-3 MONTHS OF WEAKNESS, SOA AND DIZZINESS. PT'S SENT PT TO OUR ED FOR EVALUATION OF THE A-FIB. PT REPORTS SHE HAS GASTROPORESIS AND HAS CHRONIC ABDOMINAL PAIN. SHe is currently normal sinus rhythm at the ER with a creatinine of 2.0, looking at old records she is anywhere between 3-1.2 Past Medical History Cardiovascular: HTN, Hyperlipidemia Pulmonary: Pulmonary embolus CENTRAL NERVOUS SYSTEM: Dementia GI: Diverticulosis, GERD, Other Heme/Onc: Other Psych: Anxiety Musculoskeletal: Osteoarthritis Rheumatologic: No pertinent hx Infectious disease: No pertinent hx Renal/: Chronic renal insuff, UTI, Other Endocrine: Diabetes, Hypothyroidism Past Surgical History Past Surgical History: Cholecystectomy, Total knee replacement, Hysterectomy, Other Family History Family History: Coronary Artery Disease, Diabetes Social History Smoke: No ALCOHOL: none Drugs: None Current Problem List Problem List Problems Medical Problems: (1) Anemia Status: Acute (2) CHF (congestive heart failure) Status: Acute (3) Elevated d-dimer Status: Acute (4) Hypercalcemia Status: Acute (5) Hyperkalemia Status: Acute (6) Hypomagnesemia Status: Acute (7) Renal insufficiency Status: Acute (8) Shortness of breath Status: Acute (9) Uncontrolled diabetes mellitus Status: Acute Current Medications Current Medications Current Medications Famotidine (Pepcid Vial) 20 mg 1X ONCE IVP Last administered on 06/18/18at 14:36; Start 06/18/18 at 14:30; Stop 06/18/18 at 14:32; Status DC Albuterol Sulfate (Ventolin Neb Soln) 10 mg 1X ONCE CONT NEB Last administered on 06/18/18at 15:42; Start 06/18/18 at 15:15; Stop 06/18/18 at 15:19; Status DC Magnesium Sulfate 50 ml @ 25 mls/hr 1X ONCE IV Last administered on 06/18/18at 16:54; Start 06/18/18 at 15:30; Stop 06/18/18 at 17:29 Amlodipine Besylate (Norvasc) 10 mg BID PO ; Start 06/18/18 at 21:00 Docusate Sodium (Colace) 100 mg DAILY PO ; Start 06/19/18 at 09:00 Acetaminophen/ Hydrocodone Bitart (Lortab 5/325) 1 tab PRN BID PRN PO MODERATE PAIN; Start 06/18/18 at 16:45 Levothyroxine Sodium (Synthroid) 100 mcg DAILY06 PO ; Start 06/19/18 at 06:00 Metoclopramide HCl (Reglan) 5 mg PRN TID PRN PO NAUSEA; Start 06/18/18 at 16:45 Metoprolol Succinate (Toprol Xl) 100 mg DAILY PO ; Start 06/19/18 at 09:00 Trazodone HCl (Desyrel) 50 mg QHS PO ; Start 06/18/18 at 21:00 Zolpidem Tartrate (Ambien) 5 mg HS PRN PO INSOMNIA; Start 06/18/18 at 16:45; Status UNV Non-Formulary Medication (Insulin Detemir (Levemir Flextouch)) 20 unit QHS SQ ; Start 06/18/18 at 21:00; Status UNV Ferrous Sulfate (Feosol) 325 mg DAILYWBKFT PO ; Start 06/19/18 at 08:00 Non-Formulary Medication (Omeprazole ) 1 cap DAILY06 PO ; Start 06/19/18 at 06:00; Status UNV Pantoprazole Sodium (Protonix) 40 mg DAILYAC PO ; Start 06/19/18 at 07:30 Non-Formulary Medication (Simvastatin ) 1 tab QHS PO ; Start 06/18/18 at 21:00; Status UNV Sucralfate (Carafate) 1 gm QIDACHS PO ; Start 06/18/18 at 17:00 Temazepam (Restoril) 7.5 mg PRN QHS PRN PO INSOMNIA; Start 06/18/18 at 16:45; Status UNV Acetaminophen (Tylenol) 500 mg PRN Q6HRS PRN PO MILD PAIN / TEMP; Start 06/18/18 at 16:45 Morphine Sulfate (Morphine Sulfate) 2 mg PRN Q2HR PRN IV PAIN; Start 06/18/18 at 16:45 Active Scripts Active Cipro (Ciprofloxacin Hcl) 250 Mg Tablet 1 Tab PO BID Levemir Flextouch (Insulin Detemir) 100 Unit/1 Ml Insuln.pen 20 Unit SQ QHS 30 Days Reported Metformin Hcl 1,000 Mg Tablet 1,000 Mg PO BIDWMEALS Ferralet 90 Dual-Iron Tablet (Iron, Carb & Gluc/Fa/B12/C/Dss) 1 Each Tablet 1 Tab PO DAILY Reglan (Metoclopramide Hcl) 10 Mg Tablet 1 Tab PO TID PRN Sucralfate 1 Gm Tablet 1 Tab PO QIDACHS Metoprolol Succinate ( Xl ) (Metoprolol Succinate) 100 Mg Tab.er.24h 1 Tab PO DAILY Simvastatin 20 Mg Tablet 1 Tab PO QHS Magnolia 5-325 Tablet (Acetaminophen/Hydrocodone Bitart) 1 Each Tablet 1 Tab PO BID PRN Levothyroxine Sodium 100 Mcg Tablet 1 Tab PO DAILY05 Docusate Sodium 100 Mg Capsule 1 Cap PO DAILY Trazodone Hcl 50 Mg Tablet 50 Mg PO QHS Omeprazole 40 Mg Capsule.dr 1 Cap PO DAILY06 Ibuprofen 800 Mg Tablet 800 Mg PO TID PRN Losartan-Hctz 100-12.5 Mg Tab (Losartan/Hydrochlorothiazide) 1 Each Tablet 1 Tab PO DAILY Ambien (Zolpidem Tartrate) 5 Mg Tablet 5 Mg PO HS PRN Protonix (Pantoprazole Sodium) 20 Mg Tablet.dr 40 Mg PO DAILYAC Amlodipine Besylate 10 Mg Tablet 10 Mg PO BID Allergies Allergies: Coded Allergies: Sulfa (Sulfonamide Antibiotics) (Verified Allergy, Intermediate, 04/19/18) prochlorperazine (Verified Adverse Reaction, Intermediate, DIZZY, 04/19/18) ROS Review of System A 14 point ROS was completed with the following noted as positive: Other systems reviewed and negative. \CONSTITUTIONAL: No fever or chills EYES: No recent changes SKIN: No rash or itching CARDIOVASCULAR: No chest pain, syncope, palpitations, or edema RESPIRATORY: No SOB or cough GASTROINTESTINAL: No nausea, vomiting or abdominal pain NEUROLOGICAL: No headaches or weakness ENDOCRINE: No cold or heat intolerance GENITOURINARY: No urgency or frequency of urination MUSCULOSKELETAL: No back pain or joint pain LYMPHATICS: No enlarged lymph nodes PSYCHIATRIC: No anxiety or depression Physical Exam General: Alert, Oriented X3, Cooperative, No acute distress HEENT: Atraumatic, PERRLA, EOMI Lungs: Clear to auscultation, Normal air movement Heart: S1S2, RRR, no thrills, no rubs, no gallops, no murmurs Cardiovascular: S1, S2 Breasts: Normal, Rt breast nml w/o mass, Lt breast nml w/o mass, Nipples normal Abdomen: Normal bowel sounds, Soft, No tenderness, No hepatosplenomegaly, No masses Rectal Exam: not examined PELVIC: Nml ext genitalia Extremities: No clubbing, No cyanosis, Normal pulses, Other (+2 pitting edema) Skin: No rashes, No breakdown, No significant lesion Neuro: Normal gait, Normal speech, Strength at 5/5 X4 ext, Normal tone, Sensation intact, Cranial nerves 3-12 NL, Reflexes 2+ Psych/Mental Status: Mental status NL, Mood NL Vitals Vitals Vital Signs Date Time Temp Pulse Resp B/P (MAP) Pulse Ox O2 Delivery O2 Flow Rate FiO2 06/18/18 16:29 97.4 76 18 138/63 (88) 96 Room Air 97.4 Labs Labs Laboratory Tests Test 06/18/18 13:10 06/18/18 16:46 White Blood Count 7.1 x10^3/uL (4.0-11.0) Red Blood Count 3.62 x10^6/uL (3.50-5.40) Hemoglobin 11.1 g/dL (12.0-15.5) Hematocrit 33.8 % (36.0-47.0) Mean Corpuscular Volume 93 fL (79-100) Mean Corpuscular Hemoglobin 31 pg (25-35) Mean Corpuscular Hemoglobin Concent 33 g/dL (31-37) Red Cell Distribution Width 14.4 % (11.5-14.5) Platelet Count 189 x10^3/uL (140-400) Neutrophils (%) (Auto) 68 % (31-73) Lymphocytes (%) (Auto) 25 % (24-48) Monocytes (%) (Auto) 6 % (0-9) Eosinophils (%) (Auto) 1 % (0-3) Basophils (%) (Auto) 1 % (0-3) Neutrophils # (Auto) 4.8 x10^3uL (1.8-7.7) Lymphocytes # (Auto) 1.7 x10^3/uL (1.0-4.8) Monocytes # (Auto) 0.4 x10^3/uL (0.0-1.1) Eosinophils # (Auto) 0.0 x10^3/uL (0.0-0.7) Basophils # (Auto) 0.1 x10^3/uL (0.0-0.2) Prothrombin Time 13.5 SEC (11.7-14.0) Prothromb Time International Ratio 1.1 (0.8-1.1) D-Dimer (Tammi) 15.25 ug/mlFEU (0.00-0.50) Sodium Level 135 mmol/L (136-145) Potassium Level 5.6 mmol/L (3.5-5.1) Chloride Level 102 mmol/L (98-107) Carbon Dioxide Level 17 mmol/L (21-32) Anion Gap 16 (6-14) Blood Urea Nitrogen 23 mg/dL (7-20) Creatinine 2.0 mg/dL (0.6-1.0) Estimated GFR (Cockcroft-Gault) 29.8 BUN/Creatinine Ratio 12 (6-20) Glucose Level 196 mg/dL (70-99) Calcium Level 10.3 mg/dL (8.5-10.1) Magnesium Level 1.2 mg/dL (1.8-2.4) Total Bilirubin 0.3 mg/dL (0.2-1.0) Aspartate Amino Transf (AST/SGOT) 18 U/L (15-37) Alanine Aminotransferase (ALT/SGPT) 10 U/L (14-59) Alkaline Phosphatase 44 U/L (46-116) Creatine Kinase 52 U/L (26-192) Troponin I Quantitative < 0.017 ng/mL (0.000-0.055) JU-Yaa-[id number]-Type Natriuretic Peptide 295 pg/mL (0-124) Total Protein 7.8 g/dL (6.4-8.2) Albumin 4.0 g/dL (3.4-5.0) Albumin/Globulin Ratio 1.1 (1.0-1.7) Lipase 101 U/L (73-393) Glucose (Fingerstick) 78 mg/dL (70-99) Laboratory Tests Test 06/18/18 13:10 06/18/18 16:46 White Blood Count 7.1 x10^3/uL (4.0-11.0) Red Blood Count 3.62 x10^6/uL (3.50-5.40) Hemoglobin 11.1 g/dL (12.0-15.5) Hematocrit 33.8 % (36.0-47.0) Mean Corpuscular Volume 93 fL (79-100) Mean Corpuscular Hemoglobin 31 pg (25-35) Mean Corpuscular Hemoglobin Concent 33 g/dL (31-37) Red Cell Distribution Width 14.4 % (11.5-14.5) Platelet Count 189 x10^3/uL (140-400) Neutrophils (%) (Auto) 68 % (31-73) Lymphocytes (%) (Auto) 25 % (24-48) Monocytes (%) (Auto) 6 % (0-9) Eosinophils (%) (Auto) 1 % (0-3) Basophils (%) (Auto) 1 % (0-3) Neutrophils # (Auto) 4.8 x10^3uL (1.8-7.7) Lymphocytes # (Auto) 1.7 x10^3/uL (1.0-4.8) Monocytes # (Auto) 0.4 x10^3/uL (0.0-1.1) Eosinophils # (Auto) 0.0 x10^3/uL (0.0-0.7) Basophils # (Auto) 0.1 x10^3/uL (0.0-0.2) Prothrombin Time 13.5 SEC (11.7-14.0) Prothromb Time International Ratio 1.1 (0.8-1.1) D-Dimer (Tammi) 15.25 ug/mlFEU (0.00-0.50) Sodium Level 135 mmol/L (136-145) Potassium Level 5.6 mmol/L (3.5-5.1) Chloride Level 102 mmol/L (98-107) Carbon Dioxide Level 17 mmol/L (21-32) Anion Gap 16 (6-14) Blood Urea Nitrogen 23 mg/dL (7-20) Creatinine 2.0 mg/dL (0.6-1.0) Estimated GFR (Cockcroft-Gault) 29.8 BUN/Creatinine Ratio 12 (6-20) Glucose Level 196 mg/dL (70-99) Calcium Level 10.3 mg/dL (8.5-10.1) Magnesium Level 1.2 mg/dL (1.8-2.4) Total Bilirubin 0.3 mg/dL (0.2-1.0) Aspartate Amino Transf (AST/SGOT) 18 U/L (15-37) Alanine Aminotransferase (ALT/SGPT) 10 U/L (14-59) Alkaline Phosphatase 44 U/L (46-116) Creatine Kinase 52 U/L (26-192) Troponin I Quantitative < 0.017 ng/mL (0.000-0.055) JB-Kzj-G-Type Natriuretic Peptide 295 pg/mL (0-124) Total Protein 7.8 g/dL (6.4-8.2) Albumin 4.0 g/dL (3.4-5.0) Albumin/Globulin Ratio 1.1 (1.0-1.7) Lipase 101 U/L (73-393) Glucose (Fingerstick) 78 mg/dL (70-99) VTE Prophylaxis Ordered VTE Prophylaxis Devices: Yes VTE Pharmacological Prophylaxi: Yes Assessment/Plan Assessment/Plan New A. fib by EKG PCP office-normal sinus rhythm at ER Chronic abdominal pain H/o GERD and gastroparesis PAM/CKD, chronic anemia Hx Diverticulosis S/p cholecystectomy, h/o J tube placement and dislodgement H/o elevated lipase - not this time Mild cognitive impairment - history is usually a bit difficult CP, GERD (non cardiac) hyperkalemia 5.6 elevated d-dimer 15-VQ scan pending PLAN: Met 2 midnights CBC for Consult cardiology regarding this finding of A. fib at the EKG PCP office-she was sent to her PCP because of that Chronic abdominal pain seems to be stable Leg edema +2 but I did not do Lasix as creatinine is 2-looking at old records she's ever between 1.2-3 Consult renal Avoid nephrotoxins if at all possible Address the hyperkalemia temporizing measures [id number] 151 FF UP VQ scan Heparin for DVT prophylaxis for now Heparin drip if VQ scan is positive pt/ot fURTHER RECS PENDING ABOVE SEEN AT MARIBEL Abarca MD Jun 18, 2018 16:58
[2018-06-18] MEDS ORDERED: SODIUM POLYSTYRENE SULFONATE 15 GM/60 ML ORAL.SUSP. PO ONE (17:15)
--- NOTE | 2018-06-18 17:16 | NUR ---
The patient, HI CRYSTAL, 72 y/o, F admitted by MARIBEL MARIEE MD, was given written information regarding hospital policies, unit procedures and contact persons. patient arrived to unit with [facility] med staff stating patient refused VQ scan because she is claustrophobic. This RN strongly suggested to patient to have test to R/O a PE. Patient again rused and stated that she is sure she does not have a clot in her lungs. She stated that is not why she was sent to the hospital. I advised patient that we could maybe give her medication to relax prior to the test. Patient said she may be willing to try that. PGd physician and waiting for return call. Valuables were checked and left in room with patient. Patient stated she sent her purse home with her daughter. Patient stated she went to her doctors office on Friday and had labs drawn and was sent home. Her doctor called her today to come back in to redraw labs and found potassium elevated again and was also told that she was in Afib and was advised to come to hospital. Advised patient of POC to replace magnesium and monitor heart rate. Consults to cardiology and nephrology have been called.
[2018-06-18] MEDS: SUCRALFATE 1 GM TABLET. PO SCH ×2 (17:53→21:27)
[2018-06-18] MEDS: MORPHINE SULFATE 2 MG/ML VIAL. IV PRN ×2 (17:55→20:34)
[2018-06-18] MEDS: HEPARIN for SUB-Q USE 5,000 UNIT/ML VIAL. SQ SCH ×2 (18:03→23:16)
[2018-06-18] MEDS ORDERED: IV 1/2 NORMAL SALINE 1,000 ML IV ONE (19:00)
[2018-06-18 19:47] VITALS: BP 99/59
--- NOTE | 2018-06-18 19:59 | RAD ---
Bilateral Lower Extremity Venous Doppler Ultrasound History: Elevated d-dimer and leg swelling Comparison: None Procedure: Color flow, duplex, spectral analysis and 2D images are obtained with and without compression in the area of the common femoral vein, superficial femoral vein - femoral vein junction, main femoral vein (superficial femoral vein) and popliteal vein. Veins of the proximal calf are also imaged. Findings: There is normal duplex flow, color flow and compressibility of all visualized vein segments. No evidence of deep venous thrombus is present. The calf veins are not well seen. Impression: No evidence of DVT. Electronically signed by: Preet Cosby III, MD (06/18/2018 7:56 PM) [facility]
[2018-06-18] MEDS: amLODIPine BESYLATE 10 MG TABLET PO SCH (21:00)
[2018-06-18] MEDS: traZODone 50 MG TABLET. PO SCH (21:27)
[2018-06-18] MEDS: TEMAZEPAM 7.5 MG CAPSULE PO PRN (21:28)
[2018-06-18] MEDS: SIMVASTATIN 20 MG TABLET PO SCH (21:28)
[2018-06-18] MEDS: INSULIN GLARGINE 300 UNITS/3 ML INSULN.PEN. SQ SCH (21:31)
[2018-06-18 22:27] VITALS: BP 101/68
[2018-06-19] MEDS: MORPHINE SULFATE 4 MG/ML VIAL. IV PRN ×5 (00:25→18:18)
[2018-06-19 02:50] VITALS: BP 104/62
[2018-06-19 05:32] LABS: CALCIUM 9.5 mg/dL (8.5-10.1); CREATININE 1.6 mg/dL (0.6-1.0); GFR 38.6; POTASSIUM 4.1 mmol/L (3.5-5.1)
[2018-06-19] MEDS: LEVOTHYROXINE 100 MCG TABLET PO SCH (05:48)
[2018-06-19] MEDS: HEPARIN for SUB-Q USE 5,000 UNIT/ML VIAL. SQ SCH ×3 (05:48→22:31)
[2018-06-19] MEDS ORDERED: NON FORMULARY ITEM (Omeprazole 1 CAP) PO SCH (06:00)
[2018-06-19 07:25] VITALS: BP 123/66
[2018-06-19] MEDS: HYDROcodone/APAP 5/325MG 1 TAB TABLET PO PRN (07:32)
[2018-06-19] MEDS: FERROUS SULFATE 325 MG TABLET. PO SCH (08:00)
--- NOTE | 2018-06-19 08:34 | NUR ---
Patient left the floor for VQ scan. Addendum: 06/19/18 at 0841 by TEVIN RICE RN Patient left the floor for VQ scan at approx 0800.
[2018-06-19] MEDS: PANTOPRAZOLE 40 MG TABLET.DR. PO SCH (09:17)
[2018-06-19] MEDS: DOCUSATE SODIUM 100 MG CAPSULE. PO SCH (09:20)
[2018-06-19] MEDS: SUCRALFATE 1 GM TABLET. PO SCH ×4 (09:20→22:29)
[2018-06-19] MEDS: METOPROLOL SUCC 24HR ER 100 MG TAB.ER.24H. PO SCH (09:20)
[2018-06-19] MEDS: amLODIPine BESYLATE 10 MG TABLET PO SCH ×2 (09:22→22:28)
--- NOTE | 2018-06-19 10:10 | PDOC2 ---
YAJAIRA ELLISNO [employer] 06/19/18 1009: CARDIAC CONSULT DATE OF CONSULT Date of Consult DATE: 06/19/18 TIME: 10:07 REASON FOR CONSULT Reason for Consult: AFIB REFERRING PHYSICIAN Referring Physician: Dr. Wood SOURCE Source: Chart review, Patient HISTORY OF PRESENT ILLNESS HISTORY OF PRESENT ILLNESS This is a 72 yo female who presented secondary to to hyperkalemia, persistent nasuea/vomiting and possible AFIB noted on EKG in PCP office. Patient reports nausea/vomiting began last Friday. Has been dizzy and slightly short of breath. No chest pain, palpitations, diaphoresis, orthopnea, or LE edema. Was at PCP office on Friday due to nausea/vomiting. Routine labs were obtained. Was called yesterday by PCP due to hyperkalemia. Had EKG conducted, which reportedly showed AFIB. Was referred to ED for further evaluation and treatment. Nausea/vomiting persists. Initial EKG upon arrival shows SR. PAST MEDICAL HISTORY Cardiovascular: HTN, Hyperlipidemia Pulmonary: No pertinent hx CENTRAL NERVOUS SYSTEM: Other (no pertinent hx ) GI: Diverticulosis, GERD Heme/Onc: Anemia NOS Hepatobiliary: No pertinent hx Psych: Anxiety Musculoskeletal: Osteoarthritis Rheumatologic: No pertinent hx Infectious disease: No pertinent hx ENT: No pertinent hx Renal/: Chronic renal insuff Endocrine: Diabetes, Hypothyroidism PAST SURGICAL HISTORY Past Surgical History: Cholecystectomy, Hysterectomy, Other (left knee replacement ) FAMILY HISTORY Family History: Diabetes, Heart Disease, Hypertension SOCIAL HISTORY Smoke: No ALCOHOL: none Drugs: None Lives: with Family CURRENT MEDICATIONS CURRENT MEDICATIONS Current Medications Medications (Trade) Dose Ordered Sig/Alo Route PRN Reason Start Time Stop Time Status Last Admin Dose Admin Famotidine (Pepcid Vial) 20 mg 1X ONCE IVP 06/18/18 14:30 06/18/18 14:32 DC 06/18/18 14:36 Albuterol Sulfate (Ventolin Neb Soln) 10 mg 1X ONCE CONT NEB 06/18/18 15:15 06/18/18 15:19 DC 06/18/18 15:42 Magnesium Sulfate 50 ml @ 25 mls/hr 1X ONCE IV 06/18/18 15:30 06/18/18 17:29 DC 06/18/18 16:54 Amlodipine Besylate (Norvasc) 10 mg BID PO 06/18/18 21:00 06/19/18 09:22 Docusate Sodium (Colace) 100 mg DAILY PO 06/19/18 09:00 06/19/18 09:20 Acetaminophen/ Hydrocodone Bitart (Lortab 5/325) 1 tab PRN BID PRN PO MODERATE PAIN 06/18/18 16:45 06/19/18 07:32 Levothyroxine Sodium (Synthroid) 100 mcg DAILY06 PO 06/19/18 06:00 06/19/18 05:48 Metoprolol Succinate (Toprol Xl) 100 mg DAILY PO 06/19/18 09:00 06/19/18 09:20 Trazodone HCl (Desyrel) 50 mg QHS PO 06/18/18 21:00 06/18/18 21:27 Insulin Glargine (Lantus) 20 units QHS SQ 06/18/18 21:00 06/18/18 21:31 Pantoprazole Sodium (Protonix) 40 mg DAILYAC PO 06/19/18 07:30 06/19/18 09:17 Simvastatin (Zocor) 20 mg HS PO 06/18/18 21:00 06/18/18 21:28 Sucralfate (Carafate) 1 gm QIDACHS PO 06/18/18 17:00 06/19/18 09:20 Temazepam (Restoril) 7.5 mg PRN QHS PRN PO INSOMNIA 06/18/18 16:45 06/18/18 21:28 Morphine Sulfate (Morphine Sulfate) 2 mg PRN Q2HR PRN IV PAIN 06/18/18 16:45 06/18/18 20:52 DC 06/18/18 20:34 Sodium Polystyrene Sulfonate (Kayexalate) 15 gm 1X ONCE PO 06/18/18 17:15 06/18/18 17:16 DC 06/18/18 17:54 Heparin Sodium (Porcine) (Heparin Sodium) 5,000 unit Q8HRS SQ 06/18/18 17:15 06/18/18 23:16 Sodium Chloride 1,000 ml @ 75 mls/hr 1X ONCE IV 06/18/18 19:00 06/19/18 08:19 DC 06/18/18 19:07 Lorazepam (Ativan) 2 mg 1X PRN PRN IV PRIOR TO VQ SCAN 06/19/18 06:00 06/19/18 21:00 06/19/18 07:33 Morphine Sulfate (Morphine Sulfate) 4 mg PRN Q2HR PRN IV PAIN 06/18/18 21:00 06/19/18 09:23 ALLERGIES ALLERGIES: Coded Allergies: Sulfa (Sulfonamide Antibiotics) (Verified Allergy, Intermediate, 04/19/18) prochlorperazine (Verified Adverse Reaction, Intermediate, DIZZY, 04/19/18) ROS Review of System 14 point ROS conducted with pertinent positives noted above in HPI. PHYSICAL EXAM General: Alert, Oriented X3, Cooperative, No acute distress HEENT: Atraumatic, Mucous membr. moist/pink Lungs: Clear to auscultation, Normal air movement Heart: Regular rate, Normal S1, Normal S2, Other (2/6 systolic murmur ) Abdomen: Soft, No tenderness Extremities: No edema, Normal pulses Skin: No significant lesion Neuro: Normal speech, Normal tone Psych/Mental Status: Mental status NL, Mood NL MUSCULOSKELETAL: Osteoarthritic changes both hands VITALS VITALS Vital Signs Date Time Temp Pulse Resp B/P (MAP) Pulse Ox O2 Delivery O2 Flow Rate FiO2 06/19/18 09:23 90 Room Air 06/19/18 09:22 95 129/87 06/19/18 07:25 98.3 16 98.3 LABS Lab: Laboratory Tests Test 06/18/18 13:10 06/18/18 16:46 06/18/18 20:24 06/19/18 04:00 White Blood Count 7.1 x10^3/uL (4.0-11.0) Red Blood Count 3.62 x10^6/uL (3.50-5.40) Hemoglobin 11.1 g/dL (12.0-15.5) Hematocrit 33.8 % (36.0-47.0) Mean Corpuscular Volume 93 fL (79-100) Mean Corpuscular Hemoglobin 31 pg (25-35) Mean Corpuscular Hemoglobin Concent 33 g/dL (31-37) Red Cell Distribution Width 14.4 % (11.5-14.5) Platelet Count 189 x10^3/uL (140-400) Neutrophils (%) (Auto) 68 % (31-73) Lymphocytes (%) (Auto) 25 % (24-48) Monocytes (%) (Auto) 6 % (0-9) Eosinophils (%) (Auto) 1 % (0-3) Basophils (%) (Auto) 1 % (0-3) Neutrophils # (Auto) 4.8 x10^3uL (1.8-7.7) Lymphocytes # (Auto) 1.7 x10^3/uL (1.0-4.8) Monocytes # (Auto) 0.4 x10^3/uL (0.0-1.1) Eosinophils # (Auto) 0.0 x10^3/uL (0.0-0.7) Basophils # (Auto) 0.1 x10^3/uL (0.0-0.2) Prothrombin Time 13.5 SEC (11.7-14.0) Prothromb Time International Ratio 1.1 (0.8-1.1) D-Dimer (Tammi) 15.25 ug/mlFEU (0.00-0.50) Sodium Level 135 mmol/L (136-145) 137 mmol/L (136-145) Potassium Level 5.6 mmol/L (3.5-5.1) 4.1 mmol/L (3.5-5.1) Chloride Level 102 mmol/L (98-107) 104 mmol/L (98-107) Carbon Dioxide Level 17 mmol/L (21-32) 18 mmol/L (21-32) Anion Gap 16 (6-14) 15 (6-14) Blood Urea Nitrogen 23 mg/dL (7-20) 17 mg/dL (7-20) Creatinine 2.0 mg/dL (0.6-1.0) 1.6 mg/dL (0.6-1.0) Estimated GFR (Cockcroft-Gault) 29.8 38.6 BUN/Creatinine Ratio 12 (6-20) Glucose Level 196 mg/dL (70-99) 90 mg/dL (70-99) Calcium Level 10.3 mg/dL (8.5-10.1) 9.5 mg/dL (8.5-10.1) Magnesium Level 1.2 mg/dL (1.8-2.4) Total Bilirubin 0.3 mg/dL (0.2-1.0) Aspartate Amino Transf (AST/SGOT) 18 U/L (15-37) Alanine Aminotransferase (ALT/SGPT) 10 U/L (14-59) Alkaline Phosphatase 44 U/L (46-116) Creatine Kinase 52 U/L (26-192) Troponin I Quantitative < 0.017 ng/mL (0.000-0.055) OH-Ato-D-Type Natriuretic Peptide 295 pg/mL (0-124) Total Protein 7.8 g/dL (6.4-8.2) Albumin 4.0 g/dL (3.4-5.0) Albumin/Globulin Ratio 1.1 (1.0-1.7) Lipase 101 U/L (73-393) Glucose (Fingerstick) 78 mg/dL (70-99) 92 mg/dL (70-99) Test 06/19/18 07:04 Glucose (Fingerstick) 83 mg/dL (70-99) ECHOCARDIOGRAM ECHOCARDIOGRAM <Conclusion> The left ventricle is normal size. The left ventricular systolic function is normal and the ejection fraction is within normal range. The Ejection Fraction is 55-60%. There is mild concentric left ventricular hypertrophy. There is no significant aortic valvular stenosis. Doppler and Color Flow revealed no significant aortic regurgitation. Doppler and Color-flow revealed trace mitral regurgitation. Doppler and Color Flow revealed mild to moderate tricuspid regurgitation with an estimated PAP of 37 mmHg. DATE: 04/21/18 163 ASSESSMENT/PLAN ASSESSMENT/PLAN 1. Persistent nausea/vomiting. h/o GERD and gastroparesis. as per PCP 2. Hyperkalemia; resolved 3. Arrhythmia. Reportedly AFIB on EKG in PCP office. SR upon arrival to ED. Maintaining NSR since 4. Elevated d-dimer; VQ pending 5. PAM/ CKD; better with IVFs 6. Hypomagnesemia 7. Hypertension 8. Hyperlipidemia 9. Diabetes, II Recommendations Recheck Mg. TSH level Obtain EKG from PCP office Echo to assess LV systolic function Monitor tele ASA for now unless further AFIB noted. Continue metoprolol Consider outpatient event monitor to note AFIB/arrhythmia burden and guide anticoagulation therapy AARON ESPINOZA MD 06/19/18 5936: CARDIAC CONSULT ASSESSMENT/PLAN ASSESSMENT/PLAN Patient seen and examined. Agree with SKIP TENDER's assessment and plan. EKG on admission and telemetry did not show any evidence of atrial fibrillation Patient denied any previous history of arrhythmias Continue to monitor telemetry Continue current treatment for N/V/dehydration Check 2-D echo to assess LV function Plan for outpatient event monitor to assess arrhythmia/A. fib burden Thank you for your consultation YAJAIRA ELLISON APRN Jun 19, 2018 10:09 AARON ESPINOZA MD Jun 19, 2018 16:57
--- NOTE | 2018-06-19 10:28 | PDOC ---
PROGRESS NOTES Chief Complaint Chief Complaint New A. fib by EKG PCP office-normal sinus rhythm at ER Chronic abdominal pain H/o GERD and gastroparesis PAM/CKD, chronic anemia Hx Diverticulosis S/p cholecystectomy, h/o J tube placement and dislodgement H/o elevated lipase - not this time Mild cognitive impairment - history is usually a bit difficult CP, GERD (non cardiac) hyperkalemia 5.6 elevated d-dimer 15-VQ scan pending- neg venous dopplers History of Present Illness History of Present Illness emesis. all over the place Ativan and hydrocodone given prior to VQ scan because she was claustrophobic Known to me from chronic gastroparesis and previous hospitalizations for prolonged days of emesis etc. Venous Dopplers is negative-I did order that because d-dimer was 15 and initially she was refusing VQ scan Plan: follow-up VQ scan results Back down to liquid diet then ADA T Cutback on morphine back to 2 mg is what I initially had her on Discussed with RN Add second anti nausea NEw a fib - now nSR - follow cards recs Vitals Vitals Vital Signs Date Time Temp Pulse Resp B/P (MAP) Pulse Ox O2 Delivery O2 Flow Rate FiO2 06/19/18 09:23 90 Room Air 06/19/18 09:22 95 129/87 06/19/18 07:25 98.3 16 98.3 Physical Exam General: Alert, Oriented X3, Cooperative, No acute distress Lungs: Clear, Other Abdomen: Normal bowel sounds, Soft, No tenderness, No hepatosplenomegaly, No masses Extremities: No clubbing, No cyanosis, Normal pulses, Other (+2 pitting edema) Skin: No rashes, No breakdown, No significant lesion Labs LABS Laboratory Tests Test 06/18/18 13:10 06/18/18 16:46 06/18/18 20:24 06/19/18 04:00 White Blood Count 7.1 x10^3/uL (4.0-11.0) Red Blood Count 3.62 x10^6/uL (3.50-5.40) Hemoglobin 11.1 g/dL (12.0-15.5) Hematocrit 33.8 % (36.0-47.0) Mean Corpuscular Volume 93 fL (79-100) Mean Corpuscular Hemoglobin 31 pg (25-35) Mean Corpuscular Hemoglobin Concent 33 g/dL (31-37) Red Cell Distribution Width 14.4 % (11.5-14.5) Platelet Count 189 x10^3/uL (140-400) Neutrophils (%) (Auto) 68 % (31-73) Lymphocytes (%) (Auto) 25 % (24-48) Monocytes (%) (Auto) 6 % (0-9) Eosinophils (%) (Auto) 1 % (0-3) Basophils (%) (Auto) 1 % (0-3) Neutrophils # (Auto) 4.8 x10^3uL (1.8-7.7) Lymphocytes # (Auto) 1.7 x10^3/uL (1.0-4.8) Monocytes # (Auto) 0.4 x10^3/uL (0.0-1.1) Eosinophils # (Auto) 0.0 x10^3/uL (0.0-0.7) Basophils # (Auto) 0.1 x10^3/uL (0.0-0.2) Prothrombin Time 13.5 SEC (11.7-14.0) Prothromb Time International Ratio 1.1 (0.8-1.1) D-Dimer (Tammi) 15.25 ug/mlFEU (0.00-0.50) Sodium Level 135 mmol/L (136-145) 137 mmol/L (136-145) Potassium Level 5.6 mmol/L (3.5-5.1) 4.1 mmol/L (3.5-5.1) Chloride Level 102 mmol/L (98-107) 104 mmol/L (98-107) Carbon Dioxide Level 17 mmol/L (21-32) 18 mmol/L (21-32) Anion Gap 16 (6-14) 15 (6-14) Blood Urea Nitrogen 23 mg/dL (7-20) 17 mg/dL (7-20) Creatinine 2.0 mg/dL (0.6-1.0) 1.6 mg/dL (0.6-1.0) Estimated GFR (Cockcroft-Gault) 29.8 38.6 BUN/Creatinine Ratio 12 (6-20) Glucose Level 196 mg/dL (70-99) 90 mg/dL (70-99) Calcium Level 10.3 mg/dL (8.5-10.1) 9.5 mg/dL (8.5-10.1) Magnesium Level 1.2 mg/dL (1.8-2.4) Total Bilirubin 0.3 mg/dL (0.2-1.0) Aspartate Amino Transf (AST/SGOT) 18 U/L (15-37) Alanine Aminotransferase (ALT/SGPT) 10 U/L (14-59) Alkaline Phosphatase 44 U/L (46-116) Creatine Kinase 52 U/L (26-192) Troponin I Quantitative < 0.017 ng/mL (0.000-0.055) ZA-Ope-N-Type Natriuretic Peptide 295 pg/mL (0-124) Total Protein 7.8 g/dL (6.4-8.2) Albumin 4.0 g/dL (3.4-5.0) Albumin/Globulin Ratio 1.1 (1.0-1.7) Lipase 101 U/L (73-393) Glucose (Fingerstick) 78 mg/dL (70-99) 92 mg/dL (70-99) Test 06/19/18 07:04 Glucose (Fingerstick) 83 mg/dL (70-99) Review of Systems Review of Systems nausea, vomited, the rest of ROS 14 point negative, no chest pain, no SOA Assessment and Plan Assessmemt and Plan Problems Medical Problems: (1) Anemia Status: Acute (2) CHF (congestive heart failure) Status: Acute (3) Elevated d-dimer Status: Acute (4) Hypercalcemia Status: Acute (5) Hyperkalemia Status: Acute (6) Hypomagnesemia Status: Acute (7) Renal insufficiency Status: Acute (8) Shortness of breath Status: Acute (9) Uncontrolled diabetes mellitus Status: Acute Comment Review of Relevant I have reviewed the following items mert (where applicable) has been applied. Labs Laboratory Tests Test 06/18/18 13:10 06/18/18 16:46 06/18/18 20:24 06/19/18 04:00 White Blood Count 7.1 x10^3/uL (4.0-11.0) Red Blood Count 3.62 x10^6/uL (3.50-5.40) Hemoglobin 11.1 g/dL (12.0-15.5) Hematocrit 33.8 % (36.0-47.0) Mean Corpuscular Volume 93 fL (79-100) Mean Corpuscular Hemoglobin 31 pg (25-35) Mean Corpuscular Hemoglobin Concent 33 g/dL (31-37) Red Cell Distribution Width 14.4 % (11.5-14.5) Platelet Count 189 x10^3/uL (140-400) Neutrophils (%) (Auto) 68 % (31-73) Lymphocytes (%) (Auto) 25 % (24-48) Monocytes (%) (Auto) 6 % (0-9) Eosinophils (%) (Auto) 1 % (0-3) Basophils (%) (Auto) 1 % (0-3) Neutrophils # (Auto) 4.8 x10^3uL (1.8-7.7) Lymphocytes # (Auto) 1.7 x10^3/uL (1.0-4.8) Monocytes # (Auto) 0.4 x10^3/uL (0.0-1.1) Eosinophils # (Auto) 0.0 x10^3/uL (0.0-0.7) Basophils # (Auto) 0.1 x10^3/uL (0.0-0.2) Prothrombin Time 13.5 SEC (11.7-14.0) Prothromb Time International Ratio 1.1 (0.8-1.1) D-Dimer (Tammi) 15.25 ug/mlFEU (0.00-0.50) Sodium Level 135 mmol/L (136-145) 137 mmol/L (136-145) Potassium Level 5.6 mmol/L (3.5-5.1) 4.1 mmol/L (3.5-5.1) Chloride Level 102 mmol/L (98-107) 104 mmol/L (98-107) Carbon Dioxide Level 17 mmol/L (21-32) 18 mmol/L (21-32) Anion Gap 16 (6-14) 15 (6-14) Blood Urea Nitrogen 23 mg/dL (7-20) 17 mg/dL (7-20) Creatinine 2.0 mg/dL (0.6-1.0) 1.6 mg/dL (0.6-1.0) Estimated GFR (Cockcroft-Gault) 29.8 38.6 BUN/Creatinine Ratio 12 (6-20) Glucose Level 196 mg/dL (70-99) 90 mg/dL (70-99) Calcium Level 10.3 mg/dL (8.5-10.1) 9.5 mg/dL (8.5-10.1) Magnesium Level 1.2 mg/dL (1.8-2.4) Total Bilirubin 0.3 mg/dL (0.2-1.0) Aspartate Amino Transf (AST/SGOT) 18 U/L (15-37) Alanine Aminotransferase (ALT/SGPT) 10 U/L (14-59) Alkaline Phosphatase 44 U/L (46-116) Creatine Kinase 52 U/L (26-192) Troponin I Quantitative < 0.017 ng/mL (0.000-0.055) UD-Hts-T-Type Natriuretic Peptide 295 pg/mL (0-124) Total Protein 7.8 g/dL (6.4-8.2) Albumin 4.0 g/dL (3.4-5.0) Albumin/Globulin Ratio 1.1 (1.0-1.7) Lipase 101 U/L (73-393) Glucose (Fingerstick) 78 mg/dL (70-99) 92 mg/dL (70-99) Test 06/19/18 07:04 Glucose (Fingerstick) 83 mg/dL (70-99) Laboratory Tests Test 06/18/18 13:10 06/18/18 16:46 06/18/18 20:24 06/19/18 04:00 White Blood Count 7.1 x10^3/uL (4.0-11.0) Red Blood Count 3.62 x10^6/uL (3.50-5.40) Hemoglobin 11.1 g/dL (12.0-15.5) Hematocrit 33.8 % (36.0-47.0) Mean Corpuscular Volume 93 fL (79-100) Mean Corpuscular Hemoglobin 31 pg (25-35) Mean Corpuscular Hemoglobin Concent 33 g/dL (31-37) Red Cell Distribution Width 14.4 % (11.5-14.5) Platelet Count 189 x10^3/uL (140-400) Neutrophils (%) (Auto) 68 % (31-73) Lymphocytes (%) (Auto) 25 % (24-48) Monocytes (%) (Auto) 6 % (0-9) Eosinophils (%) (Auto) 1 % (0-3) Basophils (%) (Auto) 1 % (0-3) Neutrophils # (Auto) 4.8 x10^3uL (1.8-7.7) Lymphocytes # (Auto) 1.7 x10^3/uL (1.0-4.8) Monocytes # (Auto) 0.4 x10^3/uL (0.0-1.1) Eosinophils # (Auto) 0.0 x10^3/uL (0.0-0.7) Basophils # (Auto) 0.1 x10^3/uL (0.0-0.2) Prothrombin Time 13.5 SEC (11.7-14.0) Prothromb Time International Ratio 1.1 (0.8-1.1) D-Dimer (Tammi) 15.25 ug/mlFEU (0.00-0.50) Sodium Level 135 mmol/L (136-145) 137 mmol/L (136-145) Potassium Level 5.6 mmol/L (3.5-5.1) 4.1 mmol/L (3.5-5.1) Chloride Level 102 mmol/L (98-107) 104 mmol/L (98-107) Carbon Dioxide Level 17 mmol/L (21-32) 18 mmol/L (21-32) Anion Gap 16 (6-14) 15 (6-14) Blood Urea Nitrogen 23 mg/dL (7-20) 17 mg/dL (7-20) Creatinine 2.0 mg/dL (0.6-1.0) 1.6 mg/dL (0.6-1.0) Estimated GFR (Cockcroft-Gault) 29.8 38.6 BUN/Creatinine Ratio 12 (6-20) Glucose Level 196 mg/dL (70-99) 90 mg/dL (70-99) Calcium Level 10.3 mg/dL (8.5-10.1) 9.5 mg/dL (8.5-10.1) Magnesium Level 1.2 mg/dL (1.8-2.4) Total Bilirubin 0.3 mg/dL (0.2-1.0) Aspartate Amino Transf (AST/SGOT) 18 U/L (15-37) Alanine Aminotransferase (ALT/SGPT) 10 U/L (14-59) Alkaline Phosphatase 44 U/L (46-116) Creatine Kinase 52 U/L (26-192) Troponin I Quantitative < 0.017 ng/mL (0.000-0.055) CZ-Kfk-L-Type Natriuretic Peptide 295 pg/mL (0-124) Total Protein 7.8 g/dL (6.4-8.2) Albumin 4.0 g/dL (3.4-5.0) Albumin/Globulin Ratio 1.1 (1.0-1.7) Lipase 101 U/L (73-393) Glucose (Fingerstick) 78 mg/dL (70-99) 92 mg/dL (70-99) Test 06/19/18 07:04 Glucose (Fingerstick) 83 mg/dL (70-99) Medications Current Medications Famotidine (Pepcid Vial) 20 mg 1X ONCE IVP Last administered on 06/18/18 14:36; Start 06/18/18 at 14:30; Stop 06/18/18 at 14:32; Status DC Albuterol Sulfate (Ventolin Neb Soln) 10 mg 1X ONCE CONT NEB Last administered on 06/18/18at 15:42; Start 06/18/18 at 15:15; Stop 06/18/18 at 15:19; Status DC Magnesium Sulfate 50 ml @ 25 mls/hr 1X ONCE IV Last administered on 06/18/18at 16:54; Start 06/18/18 at 15:30; Stop 06/18/18 at 17:29; Status DC Amlodipine Besylate (Norvasc) 10 mg BID PO Last administered on 06/19/18at 09:22; Start 06/18/18 at 21:00 Docusate Sodium (Colace) 100 mg DAILY PO Last administered on 06/19/18at 09:20; Start 06/19/18 at 09:00 Acetaminophen/ Hydrocodone Bitart (Lortab 5/325) 1 tab PRN BID PRN PO MODERATE PAIN Last administered on 06/19/18at 07:32; Start 06/18/18 at 16:45 Levothyroxine Sodium (Synthroid) 100 mcg DAILY06 PO Last administered on 06/19/18at 05:48; Start 06/19/18 at 06:00 Metoclopramide HCl (Reglan) 5 mg PRN TID PRN PO NAUSEA; Start 06/18/18 at 16:45 Metoprolol Succinate (Toprol Xl) 100 mg DAILY PO Last administered on 06/19/18 09:20; Start 06/19/18 at 09:00 Trazodone HCl (Desyrel) 50 mg QHS PO Last administered on 06/18/18at 21:27; Start 06/18/18 at 21:00 Zolpidem Tartrate (Ambien) 5 mg PRN QHS PRN PO INSOMNIA; Start 06/18/18 at 16:45; Stop 06/18/18 at 17:40; Status DC Insulin Glargine (Lantus) 20 units QHS SQ Last administered on 06/18/18at 21:31; Start 06/18/18 at 21:00 Ferrous Sulfate (Feosol) 325 mg DAILYWBKFT PO ; Start 06/19/18 at 08:00 Non-Formulary Medication (Omeprazole ) 1 cap DAILY06 PO ; Start 06/19/18 at 06:00; Status UNV Pantoprazole Sodium (Protonix) 40 mg DAILYAC PO Last administered on 06/19/18 09:17; Start 06/19/18 at 07:30 Simvastatin (Zocor) 20 mg HS PO Last administered on 06/18/18 21:28; Start 06/18/18 at 21:00 Sucralfate (Carafate) 1 gm QIDACHS PO Last administered on 06/19/18at 09:20; Start 06/18/18 at 17:00 Temazepam (Restoril) 7.5 mg PRN QHS PRN PO INSOMNIA Last administered on 06/18/18 21:28; Start 06/18/18 at 16:45 Acetaminophen (Tylenol) 500 mg PRN Q6HRS PRN PO MILD PAIN / TEMP; Start 06/18/18 at 16:45 Morphine Sulfate (Morphine Sulfate) 2 mg PRN Q2HR PRN IV PAIN Last administered on 06/18/18at 20:34; Start 06/18/18 at 16:45; Stop 06/18/18 at 20:52; Status DC Sodium Polystyrene Sulfonate (Kayexalate) 15 gm 1X ONCE PO Last administered on 06/18/18at 17:54; Start 06/18/18 at 17:15; Stop 06/18/18 at 17:16; Status DC Heparin Sodium (Porcine) (Heparin Sodium) 5,000 unit Q8HRS SQ Last administered on 06/18/18at 23:16; Start 06/18/18 at 17:15 Sodium Chloride 1,000 ml @ 75 mls/hr 1X ONCE IV Last administered on 06/18/18at 19:07; Start 06/18/18 at 19:00; Stop 06/19/18 at 08:19; Status DC Lorazepam (Ativan) 2 mg 1X PRN PRN IV PRIOR TO VQ SCAN Last administered on 06/19/18at 07:33; Start 06/19/18 at 06:00; Stop 06/19/18 at 21:00 Morphine Sulfate (Morphine Sulfate) 4 mg PRN Q2HR PRN IV PAIN Last administered on 06/19/18at 09:23; Start 06/18/18 at 21:00 Active Scripts Active Cipro (Ciprofloxacin Hcl) 250 Mg Tablet 1 Tab PO BID Levemir Flextouch (Insulin Detemir) 100 Unit/1 Ml Insuln.pen 20 Unit SQ QHS 30 Days Reported Metformin Hcl 1,000 Mg Tablet 1,000 Mg PO BIDWMEALS Ferralet 90 Dual-Iron Tablet (Iron, Carb & Gluc/Fa/B12/C/Dss) 1 Each Tablet 1 Tab PO DAILY Reglan (Metoclopramide Hcl) 10 Mg Tablet 1 Tab PO TID PRN Sucralfate 1 Gm Tablet 1 Tab PO QIDACHS Metoprolol Succinate ( Xl ) (Metoprolol Succinate) 100 Mg Tab.er.24h 1 Tab PO DAILY Simvastatin 20 Mg Tablet 1 Tab PO QHS [place] 5-325 Tablet (Acetaminophen/Hydrocodone Bitart) 1 Each Tablet 1 Tab PO BID PRN Levothyroxine Sodium 100 Mcg Tablet 1 Tab PO DAILY05 Docusate Sodium 100 Mg Capsule 1 Cap PO DAILY Trazodone Hcl 50 Mg Tablet 50 Mg PO QHS Omeprazole 40 Mg Capsule.dr 1 Cap PO DAILY06 Ibuprofen 800 Mg Tablet 800 Mg PO TID PRN Losartan-Hctz 100-12.5 Mg Tab (Losartan/Hydrochlorothiazide) 1 Each Tablet 1 Tab PO DAILY Ambien (Zolpidem Tartrate) 5 Mg Tablet 5 Mg PO HS PRN Protonix (Pantoprazole Sodium) 20 Mg Tablet.dr 40 Mg PO DAILYAC Amlodipine Besylate 10 Mg Tablet 10 Mg PO BID Vitals/I & O Vital Sign - Last 24 Hours 06/18/18 06/18/18 06/18/18 06/18/18 12:43 13:30 14:00 15:00 Temp 98.7 98.7 Pulse 63 65 69 65 Resp 14 19 18 16 B/P (MAP) 114/70 (85) 114/70 (85) 108/72 (84) 105/63 (77) Pulse Ox 100 100 97 100 O2 Delivery Room Air Room Air Room Air Room Air 06/18/18 06/18/18 06/18/18 06/18/18 15:45 16:29 17:00 17:12 Temp 97.4 97.4 Pulse 64 76 Resp 17 18 B/P (MAP) 98/77 (84) 138/63 (88) Pulse Ox 99 96 98 O2 Delivery Room Air Room Air Room Air Room Air 06/18/18 06/18/18 06/18/18 06/18/18 17:55 19:47 20:00 20:34 Temp 98.6 98.6 Pulse 59 Resp 20 B/P (MAP) 99/59 (72) Pulse Ox 97 97 O2 Delivery Room Air Room Air Room Air Room Air 06/18/18 06/18/18 06/18/18 06/19/18 21:00 21:04 22:27 00:25 Temp 98.6 98.6 Pulse 59 78 Resp 20 B/P (MAP) 99/59 101/68 (79) Pulse Ox 96 96 96 O2 Delivery Room Air Room Air Room Air 06/19/18 06/19/18 06/19/18 06/19/18 02:50 03:31 04:01 07:25 Temp 97.9 98.3 97.9 98.3 Pulse 57 58 Resp 20 16 B/P (MAP) 104/62 (76) 123/66 (85) Pulse Ox 97 97 97 90 O2 Delivery Room Air Room Air Room Air Room Air 06/19/18 06/19/18 06/19/18 06/19/18 07:32 08:00 09:20 09:22 Pulse 91 95 B/P (MAP) 129/87 129/87 Pulse Ox 90 O2 Delivery Room Air Room Air 06/19/18 09:23 Pulse Ox 90 O2 Delivery Room Air Intake and Output 06/18/18 06/18/18 06/19/18 15:00 23:00 07:00 Intake Total 240 ml 1454 ml Output Total 100 ml 800 ml Balance 140 ml 654 ml MARIBEL MARIEE MD Jun 19, 2018 10:28
[2018-06-19] MEDS ORDERED: PROCHLORPERAZINE 10 MG/2 ML VIAL. IV PRN (10:30)
[2018-06-19] MEDS: ONDANSETRON ODT 4 MG TAB.RAPDIS. PO PRN ×2 (10:38→20:02)
[2018-06-19 11:12] VITALS: BP 120/73
--- NOTE | 2018-06-19 11:42 | NUR ---
SS following for discharge planning. SS reviewed pt chart. Pt is from home with family and is currently on room air. PT/OT ordered. Pt declined PT. No discharge needs noted at this time. SS will continue to follow for discharge planning.
--- NOTE | 2018-06-19 11:44 | PDOC2 ---
CONSULT Date of Consult Date of Consult DATE: 06/19/18 TIME: 11:37 Reason for Consult Reason for Consult: PAM Referring Physician Referring Physician: KODI Identification/Chief Complaint Chief Complaint N/V AND AFIB Source Source: Chart review, Patient History of Present Illness Reason for Visit: THIS IS A 72 YR OLD BEING EVALUATED FOR NEW ONSET AFIB. NOTED HAVE ALSO HX OF RECURRENT N/V DUE TO GASTROPARESIS. HAS CKD WITH BASELINE CR OF ABOUT 1.3. CURRENTLY IN PAM WITH CR OF 2.0 AND HYPERKALEMIA. HOME MEDS INCLUDED AN NSAID ALONG WITH AN ARB AND DIURETIC. HEMODYNAMICALLY STABLE AT THIS TIME. HYPOMAGNESEMIA IS ALSO NOTED Past Medical History Cardiovascular: AFIB, HTN, Hyperlipidemia Pulmonary: No pertinent hx CENTRAL NERVOUS SYSTEM: Other (no pertinent hx ) GI: Diverticulosis, GERD Heme/Onc: Anemia NOS Hepatobiliary: No pertinent hx Psych: Anxiety Musculoskeletal: Osteoarthritis Rheumatologic: No pertinent hx Infectious disease: No pertinent hx ENT: No pertinent hx Renal/: Chronic renal insuff Endocrine: Diabetes, Hypothyroidism Past Surgical History Past Surgical History: Cholecystectomy, Hysterectomy, Other (left knee replacement ) Family History Family History: Diabetes, Heart Disease, Hypertension Social History No ALCOHOL: none Drugs: None Lives: with Family Current Problem List Problem List Problems Medical Problems: (1) Anemia Status: Acute (2) CHF (congestive heart failure) Status: Acute (3) Elevated d-dimer Status: Acute (4) Hypercalcemia Status: Acute (5) Hyperkalemia Status: Acute (6) Hypomagnesemia Status: Acute (7) Renal insufficiency Status: Acute (8) Shortness of breath Status: Acute (9) Uncontrolled diabetes mellitus Status: Acute Current Medications Current Medications Current Medications Famotidine (Pepcid Vial) 20 mg 1X ONCE IVP Last administered on 06/18/18at 14:36; Start 06/18/18 at 14:30; Stop 06/18/18 at 14:32; Status DC Albuterol Sulfate (Ventolin Neb Soln) 10 mg 1X ONCE CONT NEB Last administered on 06/18/18at 15:42; Start 06/18/18 at 15:15; Stop 06/18/18 at 15:19; Status DC Magnesium Sulfate 50 ml @ 25 mls/hr 1X ONCE IV Last administered on 06/18/18at 16:54; Start 06/18/18 at 15:30; Stop 06/18/18 at 17:29; Status DC Amlodipine Besylate (Norvasc) 10 mg BID PO Last administered on 06/19/18 09:22; Start 06/18/18 at 21:00 Docusate Sodium (Colace) 100 mg DAILY PO Last administered on 06/19/18at 09:20; Start 06/19/18 at 09:00 Acetaminophen/ Hydrocodone Bitart (Lortab 5/325) 1 tab PRN BID PRN PO MODERATE PAIN Last administered on 06/19/18at 07:32; Start 06/18/18 at 16:45 Levothyroxine Sodium (Synthroid) 100 mcg DAILY06 PO Last administered on 06/19/18at 05:48; Start 06/19/18 at 06:00 Metoclopramide HCl (Reglan) 5 mg PRN TID PRN PO NAUSEA; Start 06/18/18 at 16:45 Metoprolol Succinate (Toprol Xl) 100 mg DAILY PO Last administered on 06/19/18at 09:20; Start 06/19/18 at 09:00 Trazodone HCl (Desyrel) 50 mg QHS PO Last administered on 06/18/18 21:27; Start 06/18/18 at 21:00 Zolpidem Tartrate (Ambien) 5 mg PRN QHS PRN PO INSOMNIA; Start 06/18/18 at 16:45; Stop 06/18/18 at 17:40; Status DC Insulin Glargine (Lantus) 20 units QHS SQ Last administered on 06/18/18at 21:31; Start 06/18/18 at 21:00 Ferrous Sulfate (Feosol) 325 mg DAILYWBKFT PO ; Start 06/19/18 at 08:00 Non-Formulary Medication (Omeprazole ) 1 cap DAILY06 PO ; Start 06/19/18 at 06:00; Status UNV Pantoprazole Sodium (Protonix) 40 mg DAILYAC PO Last administered on 06/19/18at 09:17; Start 06/19/18 at 07:30 Simvastatin (Zocor) 20 mg HS PO Last administered on 06/18/18at 21:28; Start 06/18/18 at 21:00 Sucralfate (Carafate) 1 gm QIDACHS PO Last administered on 06/19/18 09:20; Start 06/18/18 at 17:00 Temazepam (Restoril) 7.5 mg PRN QHS PRN PO INSOMNIA Last administered on 06/18/18 21:28; Start 06/18/18 at 16:45 Acetaminophen (Tylenol) 500 mg PRN Q6HRS PRN PO MILD PAIN / TEMP; Start 06/18/18 at 16:45 Morphine Sulfate (Morphine Sulfate) 2 mg PRN Q2HR PRN IV PAIN Last administered on 06/18/18 20:34; Start 06/18/18 at 16:45; Stop 06/18/18 at 20:52; Status DC Sodium Polystyrene Sulfonate (Kayexalate) 15 gm 1X ONCE PO Last administered on 06/18/18 17:54; Start 06/18/18 at 17:15; Stop 06/18/18 at 17:16; Status DC Heparin Sodium (Porcine) (Heparin Sodium) 5,000 unit Q8HRS SQ Last administered on 06/18/18at 23:16; Start 06/18/18 at 17:15 Sodium Chloride 1,000 ml @ 75 mls/hr 1X ONCE IV Last administered on 06/18/18 19:07; Start 06/18/18 at 19:00; Stop 06/19/18 at 08:19; Status DC Lorazepam (Ativan) 2 mg 1X PRN PRN IV PRIOR TO VQ SCAN Last administered on 06/19/18at 07:33; Start 06/19/18 at 06:00; Stop 06/19/18 at 21:00 Morphine Sulfate (Morphine Sulfate) 4 mg PRN Q2HR PRN IV PAIN Last administered on 06/19/18at 09:23; Start 06/18/18 at 21:00; Stop 06/19/18 at 10:24; Status DC Morphine Sulfate (Morphine Sulfate) 2 mg PRN Q2HR PRN IV PAIN; Start 06/19/18 at 10:30 Ondansetron HCl (Zofran) 4 mg PRN Q6HRS PRN IV NAUSEA/VOMITING; Start 06/19/18 at 10:30 Ondansetron HCl (Zofran Odt) 4 mg PRN Q6HRS PRN PO NAUSEA/VOMITING Last administered on 06/19/18at 10:38; Start 06/19/18 at 10:30 Prochlorperazine Edisylate (Compazine) 10 mg PRN Q6HRS PRN IV NAUSEA/VOMITING; Start 06/19/18 at 10:30; Status UNV Aspirin (Ecotrin) 81 mg DAILYWBKFT PO ; Start 06/19/18 at 12:00 Active Scripts Active Cipro (Ciprofloxacin Hcl) 250 Mg Tablet 1 Tab PO BID Levemir Flextouch (Insulin Detemir) 100 Unit/1 Ml Insuln.pen 20 Unit SQ QHS 30 Days Reported Metformin Hcl 1,000 Mg Tablet 1,000 Mg PO BIDWMEALS Ferralet 90 Dual-Iron Tablet (Iron, Carb & Gluc/Fa/B12/C/Dss) 1 Each Tablet 1 Tab PO DAILY Reglan (Metoclopramide Hcl) 10 Mg Tablet 1 Tab PO TID PRN Sucralfate 1 Gm Tablet 1 Tab PO QIDACHS Metoprolol Succinate ( Xl ) (Metoprolol Succinate) 100 Mg Tab.er.24h 1 Tab PO DAILY Simvastatin 20 Mg Tablet 1 Tab PO QHS Isom 5-325 Tablet (Acetaminophen/Hydrocodone Bitart) 1 Each Tablet 1 Tab PO BID PRN Levothyroxine Sodium 100 Mcg Tablet 1 Tab PO DAILY05 Docusate Sodium 100 Mg Capsule 1 Cap PO DAILY Trazodone Hcl 50 Mg Tablet 50 Mg PO QHS Omeprazole 40 Mg Capsule.dr 1 Cap PO DAILY06 Ibuprofen 800 Mg Tablet 800 Mg PO TID PRN Losartan-Hctz 100-12.5 Mg Tab (Losartan/Hydrochlorothiazide) 1 Each Tablet 1 Tab PO DAILY Ambien (Zolpidem Tartrate) 5 Mg Tablet 5 Mg PO HS PRN Protonix (Pantoprazole Sodium) 20 Mg Tablet.dr 40 Mg PO DAILYAC Amlodipine Besylate 10 Mg Tablet 10 Mg PO BID Allergies Allergies: Coded Allergies: Sulfa (Sulfonamide Antibiotics) (Verified Allergy, Intermediate, 04/19/18) prochlorperazine (Verified Adverse Reaction, Intermediate, DIZZY, 04/19/18) ROS General: YES: Fatigue, Appetite PSYCHOLOGICAL ROS: YES: Anxiety Eyes: Yes Decreased vision ALLERGY AND IMMUNOLOGY: YES: Seasonal Allergies Respiratory: YES: Cough Gastrointestinal: Yes Nausea, Yes Vomiting, Yes Constipation Genitourinary: YES Other (NOCTURIA) Musculoskeletal: Yes Muscular Weakness Neurological: Yes Weakness Skin: Yes Dry Skin Physical Exam General: Alert, Oriented X3, Cooperative, No acute distress HEENT: Atraumatic, PERRLA, EOMI Heart: Regular rate, Normal S1, Normal S2 Abdomen: Normal bowel sounds, Soft, No tenderness Extremities: No cyanosis Skin: No breakdown Neuro: Normal speech Psych/Mental Status: Mental status NL, Mood NL MUSCULOSKELETAL: No joint tenderness, No deformity, No swelling Vitals VITALS Vital Signs Date Time Temp Pulse Resp B/P (MAP) Pulse Ox O2 Delivery O2 Flow Rate FiO2 06/19/18 11:12 98.4 65 18 120/73 (89) 93 Room Air 98.4 Labs Labs Laboratory Tests Test 06/18/18 13:10 06/18/18 16:46 06/18/18 20:24 06/19/18 04:00 White Blood Count 7.1 x10^3/uL (4.0-11.0) Red Blood Count 3.62 x10^6/uL (3.50-5.40) Hemoglobin 11.1 g/dL (12.0-15.5) Hematocrit 33.8 % (36.0-47.0) Mean Corpuscular Volume 93 fL (79-100) Mean Corpuscular Hemoglobin 31 pg (25-35) Mean Corpuscular Hemoglobin Concent 33 g/dL (31-37) Red Cell Distribution Width 14.4 % (11.5-14.5) Platelet Count 189 x10^3/uL (140-400) Neutrophils (%) (Auto) 68 % (31-73) Lymphocytes (%) (Auto) 25 % (24-48) Monocytes (%) (Auto) 6 % (0-9) Eosinophils (%) (Auto) 1 % (0-3) Basophils (%) (Auto) 1 % (0-3) Neutrophils # (Auto) 4.8 x10^3uL (1.8-7.7) Lymphocytes # (Auto) 1.7 x10^3/uL (1.0-4.8) Monocytes # (Auto) 0.4 x10^3/uL (0.0-1.1) Eosinophils # (Auto) 0.0 x10^3/uL (0.0-0.7) Basophils # (Auto) 0.1 x10^3/uL (0.0-0.2) Prothrombin Time 13.5 SEC (11.7-14.0) Prothromb Time International Ratio 1.1 (0.8-1.1) D-Dimer (Tammi) 15.25 ug/mlFEU (0.00-0.50) Sodium Level 135 mmol/L (136-145) 137 mmol/L (136-145) Potassium Level 5.6 mmol/L (3.5-5.1) 4.1 mmol/L (3.5-5.1) Chloride Level 102 mmol/L (98-107) 104 mmol/L (98-107) Carbon Dioxide Level 17 mmol/L (21-32) 18 mmol/L (21-32) Anion Gap 16 (6-14) 15 (6-14) Blood Urea Nitrogen 23 mg/dL (7-20) 17 mg/dL (7-20) Creatinine 2.0 mg/dL (0.6-1.0) 1.6 mg/dL (0.6-1.0) Estimated GFR (Cockcroft-Gault) 29.8 38.6 BUN/Creatinine Ratio 12 (6-20) Glucose Level 196 mg/dL (70-99) 90 mg/dL (70-99) Calcium Level 10.3 mg/dL (8.5-10.1) 9.5 mg/dL (8.5-10.1) Magnesium Level 1.2 mg/dL (1.8-2.4) 1.6 mg/dL (1.8-2.4) Total Bilirubin 0.3 mg/dL (0.2-1.0) Aspartate Amino Transf (AST/SGOT) 18 U/L (15-37) Alanine Aminotransferase (ALT/SGPT) 10 U/L (14-59) Alkaline Phosphatase 44 U/L (46-116) Creatine Kinase 52 U/L (26-192) Troponin I Quantitative < 0.017 ng/mL (0.000-0.055) CO-Fpt-W-Type Natriuretic Peptide 295 pg/mL (0-124) Total Protein 7.8 g/dL (6.4-8.2) Albumin 4.0 g/dL (3.4-5.0) Albumin/Globulin Ratio 1.1 (1.0-1.7) Lipase 101 U/L (73-393) Glucose (Fingerstick) 78 mg/dL (70-99) 92 mg/dL (70-99) Test 06/19/18 07:04 06/19/18 10:59 Glucose (Fingerstick) 83 mg/dL (70-99) 135 mg/dL (70-99) Laboratory Tests Test 06/18/18 13:10 06/18/18 16:46 06/18/18 20:24 06/19/18 04:00 White Blood Count 7.1 x10^3/uL (4.0-11.0) Red Blood Count 3.62 x10^6/uL (3.50-5.40) Hemoglobin 11.1 g/dL (12.0-15.5) Hematocrit 33.8 % (36.0-47.0) Mean Corpuscular Volume 93 fL (79-100) Mean Corpuscular Hemoglobin 31 pg (25-35) Mean Corpuscular Hemoglobin Concent 33 g/dL (31-37) Red Cell Distribution Width 14.4 % (11.5-14.5) Platelet Count 189 x10^3/uL (140-400) Neutrophils (%) (Auto) 68 % (31-73) Lymphocytes (%) (Auto) 25 % (24-48) Monocytes (%) (Auto) 6 % (0-9) Eosinophils (%) (Auto) 1 % (0-3) Basophils (%) (Auto) 1 % (0-3) Neutrophils # (Auto) 4.8 x10^3uL (1.8-7.7) Lymphocytes # (Auto) 1.7 x10^3/uL (1.0-4.8) Monocytes # (Auto) 0.4 x10^3/uL (0.0-1.1) Eosinophils # (Auto) 0.0 x10^3/uL (0.0-0.7) Basophils # (Auto) 0.1 x10^3/uL (0.0-0.2) Prothrombin Time 13.5 SEC (11.7-14.0) Prothromb Time International Ratio 1.1 (0.8-1.1) D-Dimer (Tammi) 15.25 ug/mlFEU (0.00-0.50) Sodium Level 135 mmol/L (136-145) 137 mmol/L (136-145) Potassium Level 5.6 mmol/L (3.5-5.1) 4.1 mmol/L (3.5-5.1) Chloride Level 102 mmol/L (98-107) 104 mmol/L (98-107) Carbon Dioxide Level 17 mmol/L (21-32) 18 mmol/L (21-32) Anion Gap 16 (6-14) 15 (6-14) Blood Urea Nitrogen 23 mg/dL (7-20) 17 mg/dL (7-20) Creatinine 2.0 mg/dL (0.6-1.0) 1.6 mg/dL (0.6-1.0) Estimated GFR (Cockcroft-Gault) 29.8 38.6 BUN/Creatinine Ratio 12 (6-20) Glucose Level 196 mg/dL (70-99) 90 mg/dL (70-99) Calcium Level 10.3 mg/dL (8.5-10.1) 9.5 mg/dL (8.5-10.1) Magnesium Level 1.2 mg/dL (1.8-2.4) 1.6 mg/dL (1.8-2.4) Total Bilirubin 0.3 mg/dL (0.2-1.0) Aspartate Amino Transf (AST/SGOT) 18 U/L (15-37) Alanine Aminotransferase (ALT/SGPT) 10 U/L (14-59) Alkaline Phosphatase 44 U/L (46-116) Creatine Kinase 52 U/L (26-192) Troponin I Quantitative < 0.017 ng/mL (0.000-0.055) LC-Rdb-L-Type Natriuretic Peptide 295 pg/mL (0-124) Total Protein 7.8 g/dL (6.4-8.2) Albumin 4.0 g/dL (3.4-5.0) Albumin/Globulin Ratio 1.1 (1.0-1.7) Lipase 101 U/L (73-393) Glucose (Fingerstick) 78 mg/dL (70-99) 92 mg/dL (70-99) Test 06/19/18 07:04 06/19/18 10:59 Glucose (Fingerstick) 83 mg/dL (70-99) 135 mg/dL (70-99) Images Images History: A. Fib. Comparison with October 13, 2017 FINDINGS: The aorta is tortuous and ectatic. The heart size is stable, mildly enlarged. No evidence of a pneumothorax, infiltrate or pleural effusion. Linear scarring or atelectasis left midlung, similar to prior. IMPRESSION: Stable chronic findings, no acute infiltrate. Assessment/Plan Assessment/Plan IMP PAM WITH CR OF 2.0-DRY+/- CARDIORENAL HYPERKALEMIA CKD STAGE 3 WITH CR OF ABOUT 1.3 HYPOMAGNESEMIA DEHYDRATION N/V-GASTROPARESIS NEW ONSET AFIB PLAN AVOID IBUPROFEN/NSAID HOLD ARB AND DIURETICS LOW FLOW IVF'S REPLACE [facility] [place] [facility] EVALUATION CHECK UA RENAL SONO IF CR NOT BETTER BY AM CLAYTON LAMBERT MD Jun 19, 2018 11:44
[2018-06-19] MEDS: ASPIRIN ENTERIC COATED 81 MG TABLET.DR. PO SCH (12:40)
[2018-06-19] MEDS: IV NORMAL SALINE 1000ML BAG 1,000 ML IV SCH (12:40)
[2018-06-19] MEDS ORDERED: MAGNESIUM SULFATE 2GM 50 ML IV ONE (13:00)
[2018-06-19 15:25] VITALS: BP 125/74
[2018-06-19 19:40] VITALS: BP 133/83
[2018-06-19] MEDS: traZODone 50 MG TABLET. PO SCH (22:29)
[2018-06-19] MEDS: SIMVASTATIN 20 MG TABLET PO SCH (22:29)
[2018-06-19] MEDS: INSULIN GLARGINE 300 UNITS/3 ML INSULN.PEN. SQ SCH (22:32)
[2018-06-19 23:43] VITALS: BP 124/73
[2018-06-20] MEDS: IV NORMAL SALINE 1000ML BAG 1,000 ML IV SCH ×2 (01:05→16:46)
[2018-06-20] MEDS: HYDROcodone/APAP 5/325MG 1 TAB TABLET PO PRN ×3 (03:18→20:54)
[2018-06-20 03:44] VITALS: BP 137/82
[2018-06-20 03:45] LABS: CALCIUM 9.8 mg/dL (8.5-10.1); CREATININE 1.4 mg/dL (0.6-1.0); MAGNESIUM 1.8 mg/dL (1.8-2.4); POTASSIUM 3.8 mmol/L (3.5-5.1)
[2018-06-20 03:51] LABS: CHOLESTEROL/HDL RATIO 3.1
[2018-06-20] MEDS: HEPARIN for SUB-Q USE 5,000 UNIT/ML VIAL. SQ SCH ×3 (05:47→20:59)
[2018-06-20] MEDS: LEVOTHYROXINE 100 MCG TABLET PO SCH (05:49)
[2018-06-20] MEDS: MORPHINE SULFATE 4 MG/ML VIAL. IV PRN ×3 (05:49→16:47)
[2018-06-20 07:45] VITALS: BP 136/78
[2018-06-20] MEDS: ONDANSETRON ODT 4 MG TAB.RAPDIS. PO PRN ×2 (08:08→14:32)
[2018-06-20] MEDS: PANTOPRAZOLE 40 MG TABLET.DR. PO SCH (08:08)
[2018-06-20] MEDS: SUCRALFATE 1 GM TABLET. PO SCH ×4 (08:10→20:53)
[2018-06-20] MEDS: ACETAMINOPHEN 500 MG TABLET PO PRN (08:42)
[2018-06-20] MEDS: METOPROLOL SUCC 24HR ER 100 MG TAB.ER.24H. PO SCH (08:42)
[2018-06-20] MEDS: ASPIRIN ENTERIC COATED 81 MG TABLET.DR. PO SCH (08:43)
[2018-06-20] MEDS: DOCUSATE SODIUM 100 MG CAPSULE. PO SCH (08:43)
[2018-06-20] MEDS: FERROUS SULFATE 325 MG TABLET. PO SCH (08:43)
[2018-06-20] MEDS: amLODIPine BESYLATE 10 MG TABLET PO SCH ×2 (08:43→20:53)
[2018-06-20] MEDS ORDERED: IBUPROFEN 400 MG TABLET. PO ONE (09:30)
--- NOTE | 2018-06-20 09:37 | PDOC ---
PROGRESS NOTES Chief Complaint Chief Complaint Luis Liang fib by EKG PCP office-normal sinus rhythm at ER Chronic abdominal pain H/o GERD and gastroparesis - ACTIVE NOW PAM/CKD, chronic anemia Hx Diverticulosis S/p cholecystectomy, h/o J tube placement and dislodgement H/o elevated lipase - not this time Mild cognitive impairment - history is usually a bit difficult CP, GERD (non cardiac) hyperkalemia 5.6 elevated d-dimer 15-VQ scan pending- neg venous dopplers NArcotic dependence History of Present Illness History of Present Illness emesis. all over the place again Ativan and hydrocodone given prior to VQ scan because she was claustrophobic - VQ pending counselled on her like of narcotics Known to me from chronic gastroparesis and previous hospitalizations for prolonged days of emesis etc. Venous Dopplers is negative-I did order that because d-dimer was 15 and initially she was refusing VQ scan Plan: follow-up VQ scan results Back down to liquid diet then ADA T Cutback on morphine back to 2 mg is what I initially had her on Make Reglan 10 mg scheduled increase dose Add a second antinausea agent Compazine Keep on liquid diet Keep current IVF Discussed with RN Luis velarde fib - now nSR - follow cards recs - we are not able to get EKG done in PCP office-as per patient relay PCP faxed this to us Vitals Vitals Vital Signs Date Time Temp Pulse Resp B/P (MAP) Pulse Ox O2 Delivery O2 Flow Rate FiO2 06/20/18 08:43 64 136/78 06/20/18 08:00 Room Air 06/20/18 07:45 98.6 16 98 98.6 Physical Exam General: Alert, Oriented X3, Cooperative, No acute distress Heart: Regular rate, Normal S1, Normal S2 Lungs: Clear, Other Abdomen: Normal bowel sounds, Soft, No tenderness Extremities: No cyanosis Skin: No breakdown Labs LABS Laboratory Tests Test 06/19/18 10:59 06/19/18 16:48 06/19/18 20:54 06/20/18 03:15 Glucose (Fingerstick) 135 mg/dL (70-99) 112 mg/dL (70-99) 113 mg/dL (70-99) Sodium Level 140 mmol/L (136-145) Potassium Level 3.8 mmol/L (3.5-5.1) Chloride Level 106 mmol/L (98-107) Carbon Dioxide Level 23 mmol/L (21-32) Anion Gap 11 (6-14) Blood Urea Nitrogen 12 mg/dL (7-20) Creatinine 1.4 mg/dL (0.6-1.0) Estimated GFR (Cockcroft-Gault) 45.0 Glucose Level 103 mg/dL (70-99) Calcium Level 9.8 mg/dL (8.5-10.1) Magnesium Level 1.8 mg/dL (1.8-2.4) Triglycerides Level 122 mg/dL (0-150) Cholesterol Level 141 mg/dL (0-200) LDL Cholesterol, Calculated 71 mg/dL (0-100) VLDL Cholesterol, Calculated 24 mg/dL (0-40) Non-HDL Cholesterol Calculated 95 mg/dL (0-129) HDL Cholesterol 46 mg/dL (40-60) Cholesterol/HDL Ratio 3.1 Test 06/20/18 07:47 Glucose (Fingerstick) 105 mg/dL (70-99) Review of Systems Review of Systems Nauseated, emesis, the rest of ROS 14 point negative Assessment and Plan Assessmemt and Plan Problems Medical Problems: (1) Anemia Status: Acute (2) CHF (congestive heart failure) Status: Acute (3) Elevated d-dimer Status: Acute (4) Hypercalcemia Status: Acute (5) Hyperkalemia Status: Acute (6) Hypomagnesemia Status: Acute (7) Renal insufficiency Status: Acute (8) Shortness of breath Status: Acute (9) Uncontrolled diabetes mellitus Status: Acute Comment Review of Relevant I have reviewed the following items mert (where applicable) has been applied. Labs Laboratory Tests Test 06/18/18 13:10 06/18/18 16:46 06/18/18 20:24 06/19/18 04:00 White Blood Count 7.1 x10^3/uL (4.0-11.0) Red Blood Count 3.62 x10^6/uL (3.50-5.40) Hemoglobin 11.1 g/dL (12.0-15.5) Hematocrit 33.8 % (36.0-47.0) Mean Corpuscular Volume 93 fL (79-100) Mean Corpuscular Hemoglobin 31 pg (25-35) Mean Corpuscular Hemoglobin Concent 33 g/dL (31-37) Red Cell Distribution Width 14.4 % (11.5-14.5) Platelet Count 189 x10^3/uL (140-400) Neutrophils (%) (Auto) 68 % (31-73) Lymphocytes (%) (Auto) 25 % (24-48) Monocytes (%) (Auto) 6 % (0-9) Eosinophils (%) (Auto) 1 % (0-3) Basophils (%) (Auto) 1 % (0-3) Neutrophils # (Auto) 4.8 x10^3uL (1.8-7.7) Lymphocytes # (Auto) 1.7 x10^3/uL (1.0-4.8) Monocytes # (Auto) 0.4 x10^3/uL (0.0-1.1) Eosinophils # (Auto) 0.0 x10^3/uL (0.0-0.7) Basophils # (Auto) 0.1 x10^3/uL (0.0-0.2) Prothrombin Time 13.5 SEC (11.7-14.0) Prothromb Time International Ratio 1.1 (0.8-1.1) D-Dimer (Tammi) 15.25 ug/mlFEU (0.00-0.50) Sodium Level 135 mmol/L (136-145) 137 mmol/L (136-145) Potassium Level 5.6 mmol/L (3.5-5.1) 4.1 mmol/L (3.5-5.1) Chloride Level 102 mmol/L (98-107) 104 mmol/L (98-107) Carbon Dioxide Level 17 mmol/L (21-32) 18 mmol/L (21-32) Anion Gap 16 (6-14) 15 (6-14) Blood Urea Nitrogen 23 mg/dL (7-20) 17 mg/dL (7-20) Creatinine 2.0 mg/dL (0.6-1.0) 1.6 mg/dL (0.6-1.0) Estimated GFR (Cockcroft-Gault) 29.8 38.6 BUN/Creatinine Ratio 12 (6-20) Glucose Level 196 mg/dL (70-99) 90 mg/dL (70-99) Calcium Level 10.3 mg/dL (8.5-10.1) 9.5 mg/dL (8.5-10.1) Magnesium Level 1.2 mg/dL (1.8-2.4) 1.6 mg/dL (1.8-2.4) Total Bilirubin 0.3 mg/dL (0.2-1.0) Aspartate Amino Transf (AST/SGOT) 18 U/L (15-37) Alanine Aminotransferase (ALT/SGPT) 10 U/L (14-59) Alkaline Phosphatase 44 U/L (46-116) Creatine Kinase 52 U/L (26-192) Troponin I Quantitative < 0.017 ng/mL (0.000-0.055) BD-Yoq-V-Type Natriuretic Peptide 295 pg/mL (0-124) Total Protein 7.8 g/dL (6.4-8.2) Albumin 4.0 g/dL (3.4-5.0) Albumin/Globulin Ratio 1.1 (1.0-1.7) Lipase 101 U/L (73-393) Glucose (Fingerstick) 78 mg/dL (70-99) 92 mg/dL (70-99) Thyroid Stimulating Hormone (TSH) 0.030 uIU/mL (0.358-3.74) Test 06/19/18 07:04 06/19/18 10:59 06/19/18 16:48 06/19/18 20:54 Glucose (Fingerstick) 83 mg/dL (70-99) 135 mg/dL (70-99) 112 mg/dL (70-99) 113 mg/dL (70-99) Test 06/20/18 03:15 06/20/18 07:47 Sodium Level 140 mmol/L (136-145) Potassium Level 3.8 mmol/L (3.5-5.1) Chloride Level 106 mmol/L (98-107) Carbon Dioxide Level 23 mmol/L (21-32) Anion Gap 11 (6-14) Blood Urea Nitrogen 12 mg/dL (7-20) Creatinine 1.4 mg/dL (0.6-1.0) Estimated GFR (Cockcroft-Gault) 45.0 Glucose Level 103 mg/dL (70-99) Calcium Level 9.8 mg/dL (8.5-10.1) Magnesium Level 1.8 mg/dL (1.8-2.4) Triglycerides Level 122 mg/dL (0-150) Cholesterol Level 141 mg/dL (0-200) LDL Cholesterol, Calculated 71 mg/dL (0-100) VLDL Cholesterol, Calculated 24 mg/dL (0-40) Non-HDL Cholesterol Calculated 95 mg/dL (0-129) HDL Cholesterol 46 mg/dL (40-60) Cholesterol/HDL Ratio 3.1 Glucose (Fingerstick) 105 mg/dL (70-99) Laboratory Tests Test 06/19/18 10:59 06/19/18 16:48 06/19/18 20:54 06/20/18 03:15 Glucose (Fingerstick) 135 mg/dL (70-99) 112 mg/dL (70-99) 113 mg/dL (70-99) Sodium Level 140 mmol/L (136-145) Potassium Level 3.8 mmol/L (3.5-5.1) Chloride Level 106 mmol/L (98-107) Carbon Dioxide Level 23 mmol/L (21-32) Anion Gap 11 (6-14) Blood Urea Nitrogen 12 mg/dL (7-20) Creatinine 1.4 mg/dL (0.6-1.0) Estimated GFR (Cockcroft-Gault) 45.0 Glucose Level 103 mg/dL (70-99) Calcium Level 9.8 mg/dL (8.5-10.1) Magnesium Level 1.8 mg/dL (1.8-2.4) Triglycerides Level 122 mg/dL (0-150) Cholesterol Level 141 mg/dL (0-200) LDL Cholesterol, Calculated 71 mg/dL (0-100) VLDL Cholesterol, Calculated 24 mg/dL (0-40) Non-HDL Cholesterol Calculated 95 mg/dL (0-129) HDL Cholesterol 46 mg/dL (40-60) Cholesterol/HDL Ratio 3.1 Test 06/20/18 07:47 Glucose (Fingerstick) 105 mg/dL (70-99) Medications Current Medications Famotidine (Pepcid Vial) 20 mg 1X ONCE IVP Last administered on 06/18/18at 14:36; Start 06/18/18 at 14:30; Stop 06/18/18 at 14:32; Status DC Albuterol Sulfate (Ventolin Neb Soln) 10 mg 1X ONCE CONT NEB Last administered on 06/18/18 15:42; Start 06/18/18 at 15:15; Stop 06/18/18 at 15:19; Status DC Magnesium Sulfate 50 ml @ 25 mls/hr 1X ONCE IV Last administered on 06/18/18 16:54; Start 06/18/18 at 15:30; Stop 06/18/18 at 17:29; Status DC Amlodipine Besylate (Norvasc) 10 mg BID PO Last administered on 06/20/18 08:43; Start 06/18/18 at 21:00 Docusate Sodium (Colace) 100 mg DAILY PO Last administered on 06/19/18 09:20; Start 06/19/18 at 09:00 Acetaminophen/ Hydrocodone Bitart (Lortab 5/325) 1 tab PRN BID PRN PO MODERATE PAIN Last administered on 06/20/18 03:18; Start 06/18/18 at 16:45 Levothyroxine Sodium (Synthroid) 100 mcg DAILY06 PO Last administered on 06/20/18 05:49; Start 06/19/18 at 06:00 Metoclopramide HCl (Reglan) 5 mg PRN TID PRN PO NAUSEA; Start 06/18/18 at 16:45 Metoprolol Succinate (Toprol Xl) 100 mg DAILY PO Last administered on 06/20/18 08:42; Start 06/19/18 at 09:00 Trazodone HCl (Desyrel) 50 mg QHS PO Last administered on 06/19/18 22:29; Start 06/18/18 at 21:00 Zolpidem Tartrate (Ambien) 5 mg PRN QHS PRN PO INSOMNIA; Start 06/18/18 at 16:45; Stop 06/18/18 at 17:40; Status DC Insulin Glargine (Lantus) 20 units QHS SQ Last administered on 06/19/18 22:32; Start 06/18/18 at 21:00 Ferrous Sulfate (Feosol) 325 mg DAILYWBKFT PO Last administered on 06/20/18 08:43; Start 06/19/18 at 08:00 Non-Formulary Medication (Omeprazole ) 1 cap DAILY06 PO ; Start 06/19/18 at 06:00; Status UNV Pantoprazole Sodium (Protonix) 40 mg DAILYAC PO Last administered on 06/20/18 08:08; Start 06/19/18 at 07:30 Simvastatin (Zocor) 20 mg HS PO Last administered on 06/19/18 22:29; Start 06/18/18 at 21:00 Sucralfate (Carafate) 1 gm QIDACHS PO Last administered on 06/20/18 08:10; Start 06/18/18 at 17:00 Temazepam (Restoril) 7.5 mg PRN QHS PRN PO INSOMNIA Last administered on 06/18/18 21:28; Start 06/18/18 at 16:45 Acetaminophen (Tylenol) 500 mg PRN Q6HRS PRN PO MILD PAIN / TEMP Last administered on 06/20/18 08:42; Start 06/18/18 at 16:45 Morphine Sulfate (Morphine Sulfate) 2 mg PRN Q2HR PRN IV PAIN Last administered on 06/18/18 20:34; Start 06/18/18 at 16:45; Stop 06/18/18 at 20:52; Status DC Sodium Polystyrene Sulfonate (Kayexalate) 15 gm 1X ONCE PO Last administered on 06/18/18 17:54; Start 06/18/18 at 17:15; Stop 06/18/18 at 17:16; Status DC Heparin Sodium (Porcine) (Heparin Sodium) 5,000 unit Q8HRS SQ Last administered on 06/20/18at 05:47; Start 06/18/18 at 17:15 Sodium Chloride 1,000 ml @ 75 mls/hr 1X ONCE IV Last administered on 06/18/18 19:07; Start 06/18/18 at 19:00; Stop 06/19/18 at 08:19; Status DC Lorazepam (Ativan) 2 mg 1X PRN PRN IV PRIOR TO VQ SCAN Last administered on 06/19/18 07:33; Start 06/19/18 at 06:00; Stop 06/19/18 at 21:00; Status DC Morphine Sulfate (Morphine Sulfate) 4 mg PRN Q2HR PRN IV PAIN Last administered on 06/19/18 09:23; Start 06/18/18 at 21:00; Stop 06/19/18 at 10:24; Status DC Morphine Sulfate (Morphine Sulfate) 2 mg PRN Q2HR PRN IV PAIN Last administered on 06/20/18at 05:49; Start 06/19/18 at 10:30 Ondansetron HCl (Zofran) 4 mg PRN Q6HRS PRN IV NAUSEA/VOMITING; Start 06/19/18 at 10:30 Ondansetron HCl (Zofran Odt) 4 mg PRN Q6HRS PRN PO NAUSEA/VOMITING Last administered on 06/20/18at 08:08; Start 06/19/18 at 10:30 Prochlorperazine Edisylate (Compazine) 10 mg PRN Q6HRS PRN IV NAUSEA/VOMITING; Start 06/19/18 at 10:30; Status UNV Aspirin (Ecotrin) 81 mg DAILYWBKFT PO Last administered on 06/20/18at 08:43; Start 06/19/18 at 12:00 Sodium Chloride 1,000 ml @ 75 mls/hr [id number] IV Last administered on 06/20/18at 01:05; Start 06/19/18 at 11:45 Magnesium Sulfate 50 ml @ 25 mls/hr 1X ONCE IV Last administered on 06/19/18at 12:44; Start 06/19/18 at 13:00; Stop 06/19/18 at 14:59; Status DC Ibuprofen (Motrin) 400 mg 1X ONCE PO ; Start 06/20/18 at 09:30; Stop 06/20/18 at 09:31; Status DC Active Scripts Active Cipro (Ciprofloxacin Hcl) 250 Mg Tablet 1 Tab PO BID Levemir Flextouch (Insulin Detemir) 100 Unit/1 Ml Insuln.pen 20 Unit SQ QHS 30 Days Reported Metformin Hcl 1,000 Mg Tablet 1,000 Mg PO BIDWMEALS Ferralet 90 Dual-Iron Tablet (Iron, Carb & Gluc/Fa/B12/C/Dss) 1 Each Tablet 1 Tab PO DAILY Reglan (Metoclopramide Hcl) 10 Mg Tablet 1 Tab PO TID PRN Sucralfate 1 Gm Tablet 1 Tab PO QIDACHS Metoprolol Succinate ( Xl ) (Metoprolol Succinate) 100 Mg Tab.er.24h 1 Tab PO DAILY Simvastatin 20 Mg Tablet 1 Tab PO QHS [place] 5-325 Tablet (Acetaminophen/Hydrocodone Bitart) 1 Each Tablet 1 Tab PO BID PRN Levothyroxine Sodium 100 Mcg Tablet 1 Tab PO DAILY05 Docusate Sodium 100 Mg Capsule 1 Cap PO DAILY Trazodone Hcl 50 Mg Tablet 50 Mg PO QHS Omeprazole 40 Mg Capsule.dr 1 Cap PO DAILY06 Ibuprofen 800 Mg Tablet 800 Mg PO TID PRN Losartan-Hctz 100-12.5 Mg Tab (Losartan/Hydrochlorothiazide) 1 Each Tablet 1 Tab PO DAILY Ambien (Zolpidem Tartrate) 5 Mg Tablet 5 Mg PO HS PRN Protonix (Pantoprazole Sodium) 20 Mg Tablet.dr 40 Mg PO DAILYAC Amlodipine Besylate 10 Mg Tablet 10 Mg PO BID Vitals/I & O Vital Sign - Last 24 Hours 06/19/18 06/19/18 06/19/18 06/19/18 11:12 14:21 15:25 18:18 Temp 98.4 98.1 98.4 98.1 Pulse 65 65 Resp 18 17 B/P (MAP) 120/73 (89) 125/74 (91) Pulse Ox 93 95 O2 Delivery Room Air Room Air Room Air Room Air 06/19/18 06/19/18 06/19/18 06/19/18 18:48 19:40 20:00 22:28 Temp 98.6 98.6 Pulse 63 63 Resp 17 B/P (MAP) 133/83 (100) 133/83 Pulse Ox 95 97 O2 Delivery Room Air Room Air 06/19/18 06/20/18 06/20/18 06/20/18 23:43 03:18 03:44 04:30 Temp 98.1 98.9 98.1 98.9 Pulse 58 59 Resp 16 18 16 B/P (MAP) 124/73 (90) 137/82 (100) Pulse Ox 98 97 O2 Delivery Room Air Room Air Room Air Room Air 06/20/18 06/20/18 06/20/18 06/20/18 05:49 06:20 07:45 07:45 Temp 98.6 98.6 Pulse 64 Resp 20 20 16 B/P (MAP) 136/78 (97) Pulse Ox 98 O2 Delivery Room Air Room Air Room Air Room Air 06/20/18 06/20/18 06/20/18 08:00 08:42 08:43 Pulse 64 64 B/P (MAP) 136/78 136/78 O2 Delivery Room Air Intake and Output 0 06/19/18 06/19/18 06/20/18 15:00 23:00 07:00 Intake Total 855 ml 600 ml 600 ml Output Total 300 ml 500 ml 300 ml Balance 555 ml 100 ml 300 ml Nutrition Consultation Dietary Evaluation: Recommendations by RD: Increase Calorie Intake Comments: REC liberalize diet to regular to allow more food options/choices Expected Outcomes/Goals: PO intake to meet >75% est needs Malnutrition Findings: Food and Nutrition Intake (Mod: <75% est energy req 7days Weight Status: Overweight MARIBEL MARIEE MD Jun 20, 2018 09:37
[2018-06-20] MEDS ORDERED: PROCHLORPERAZINE 10 MG/2 ML VIAL. IV PRN (09:45)
[2018-06-20] MEDS: PROMETHAZINE 12.5 MG TABLET. PO PRN (10:11)
--- NOTE | 2018-06-20 11:11 | PDOC ---
PROGRESS NOTES Subjective Subjective Continues to complain of nausea Objective Objective Vital Signs Date Time Temp Pulse Resp B/P (MAP) Pulse Ox O2 Delivery O2 Flow Rate FiO2 06/20/18 11:07 98 Room Air 06/20/18 08:43 64 136/78 06/20/18 07:45 98.6 16 98.6 Intake and Output 06/20/18 06:59 Intake Total 2055 ml Output Total 1100 ml Balance 955 ml Intake Oral 1680 ml Blood Product IV Normal Saline Flush 375 ml Output Urine Total 1100 ml Physical Exam Abdomen: Normal bowel sounds, Soft, No tenderness Heart: Regular rate, Normal S1, Normal S2 Extremities: No cyanosis General: Alert, Oriented X3, Cooperative, No acute distress HEENT: Atraumatic, PERRLA, EOMI Lungs: Clear to auscultation, Normal air movement MUSCULOSKELETAL: No joint tenderness, No deformity, No swelling Neuro: Normal speech Psych/Mental Status: Mental status NL, Mood NL Skin: No breakdown Assessment Assessment 1. Persistent nausea/vomiting. h/o GERD and gastroparesis. as per IM 2. Hyperkalemia; resolved 3. Arrhythmia. Reportedly AFIB on EKG in PCP office. However, review of EKG from PCPs office, ED showed sinus rhythm. Telemetry did not show any episodes of atrial fibrillation. Patient denied any previous cardiac arrhythmias. We will consider event monitor as an outpatient. 4. Hypertension: Controlled 5. Hyperlipidemia: Statins 6. Diabetes mellitus type 2: Treat per primary team Plan Plan of Care Problems Medical Problems: (1) Anemia Status: Acute (2) CHF (congestive heart failure) Status: Acute (3) Elevated d-dimer Status: Acute (4) Hypercalcemia Status: Acute (5) Hyperkalemia Status: Acute (6) Hypomagnesemia Status: Acute (7) Renal insufficiency Status: Acute (8) Shortness of breath Status: Acute (9) Uncontrolled diabetes mellitus Status: Acute Comment Review of Relevant I have reviewed the following items mert (where applicable) has been applied. Labs Laboratory Tests Test 06/19/18 16:48 06/19/18 20:54 06/20/18 03:15 06/20/18 07:47 Glucose (Fingerstick) 112 mg/dL (70-99) 113 mg/dL (70-99) 105 mg/dL (70-99) Sodium Level 140 mmol/L (136-145) Potassium Level 3.8 mmol/L (3.5-5.1) Chloride Level 106 mmol/L (98-107) Carbon Dioxide Level 23 mmol/L (21-32) Anion Gap 11 (6-14) Blood Urea Nitrogen 12 mg/dL (7-20) Creatinine 1.4 mg/dL (0.6-1.0) Estimated GFR (Cockcroft-Gault) 45.0 Glucose Level 103 mg/dL (70-99) Calcium Level 9.8 mg/dL (8.5-10.1) Magnesium Level 1.8 mg/dL (1.8-2.4) Triglycerides Level 122 mg/dL (0-150) Cholesterol Level 141 mg/dL (0-200) LDL Cholesterol, Calculated 71 mg/dL (0-100) VLDL Cholesterol, Calculated 24 mg/dL (0-40) Non-HDL Cholesterol Calculated 95 mg/dL (0-129) HDL Cholesterol 46 mg/dL (40-60) Cholesterol/HDL Ratio 3.1 Medications Current Medications Aspirin (Ecotrin) 81 mg DAILYWBKFT PO Last administered on 06/20/18at 08:43; Start 06/19/18 at 12:00 Ibuprofen (Motrin) 400 mg 1X ONCE PO Last administered on 06/20/18at 09:35; Start 06/20/18 at 09:30; Stop 06/20/18 at 09:31; Status DC Magnesium Sulfate 50 ml @ 25 mls/hr 1X ONCE IV Last administered on 06/19/18at 12:44; Start 06/19/18 at 13:00; Stop 06/19/18 at 14:59; Status DC Metoclopramide HCl (Reglan) 10 mg TIDAC PO ; Start 06/20/18 at 11:30 Prochlorperazine Edisylate (Compazine) 10 mg PRN Q6HRS PRN IV NAUSEA/VOMITING, 2ND CHOICE; Start 06/20/18 at 09:45; Status Cancel Promethazine HCl (Phenergan) 6.25 mg PRN Q6HRS PRN PO NAUSEA/VOMITING Last administered on 06/20/18at 10:11; Start 06/20/18 at 09:45 Sodium Chloride 1,000 ml @ 75 mls/hr [id number] IV Last administered on 06/20/18at 01:05; Start 06/19/18 at 11:45 Vitals/I & O Vital Sign - Last 24 Hours 06/19/18 06/19/18 06/19/18 06/19/18 11:12 14:21 15:25 18:18 Temp 98.4 98.1 98.4 98.1 Pulse 65 65 Resp 18 17 B/P (MAP) 120/73 (89) 125/74 (91) Pulse Ox 93 95 O2 Delivery Room Air Room Air Room Air Room Air 06/19/18 06/19/18 06/19/18 06/19/18 18:48 19:40 20:00 22:28 Temp 98.6 98.6 Pulse 63 63 Resp 17 B/P (MAP) 133/83 (100) 133/83 Pulse Ox 95 97 O2 Delivery Room Air Room Air 06/19/18 06/20/18 06/20/18 06/20/18 23:43 03:18 03:44 04:30 Temp 98.1 98.9 98.1 98.9 Pulse 58 59 Resp 16 18 16 B/P (MAP) 124/73 (90) 137/82 (100) Pulse Ox 98 97 O2 Delivery Room Air Room Air Room Air Room Air 06/20/18 06/20/18 06/20/18 06/20/18 05:49 06:20 07:45 07:45 Temp 98.6 98.6 Pulse 64 Resp 20 20 16 B/P (MAP) 136/78 (97) Pulse Ox 98 O2 Delivery Room Air Room Air Room Air Room Air 06/20/18 06/20/18 06/20/18 06/20/18 08:00 08:42 08:43 11:07 Pulse 64 64 B/P (MAP) 136/78 136/78 Pulse Ox 98 O2 Delivery Room Air Room Air Intake and Output 06/19/18 06/19/18 06/20/18 14:59 22:59 06:59 Intake Total 855 ml 600 ml 600 ml Output Total 300 ml 500 ml 300 ml Balance 555 ml 100 ml 300 ml AARON ESPINOZA MD Jun 20, 2018 11:11
--- NOTE | 2018-06-20 11:12 | NUR ---
FACULTY CO-SIGN I have reviewed the documentation by Steven Saini director industrial nursing, [facility]: Addendum: 06/20/18 at 1112 by JORGE L LONG RN Amended: Links added.
[2018-06-20 11:20] VITALS: BP 135/69
[2018-06-20] MEDS: METOCLOPRAMIDE 10 MG TABLET. PO SCH ×2 (12:38→16:46)
[2018-06-20 14:42] VITALS: BP 140/84
[2018-06-20 19:00] VITALS: BP 123/69
[2018-06-20] MEDS: TEMAZEPAM 7.5 MG CAPSULE PO PRN (20:53)
[2018-06-20] MEDS: traZODone 50 MG TABLET. PO SCH (20:53)
[2018-06-20] MEDS: SIMVASTATIN 20 MG TABLET PO SCH (20:53)
[2018-06-20] MEDS: INSULIN GLARGINE 300 UNITS/3 ML INSULN.PEN. SQ SCH (20:59)
[2018-06-20 23:00] VITALS: BP 115/68
[2018-06-21 03:00] VITALS: BP 152/82
[2018-06-21] MEDS: LEVOTHYROXINE 100 MCG TABLET PO SCH (05:06)
[2018-06-21] MEDS: HEPARIN for SUB-Q USE 5,000 UNIT/ML VIAL. SQ SCH ×3 (05:09→22:25)
[2018-06-21 05:53] LABS: CALCIUM 9.8 mg/dL (8.5-10.1); CREATININE 1.2 mg/dL (0.6-1.0); GFR 53.7; POTASSIUM 3.3 mmol/L (3.5-5.1)
[2018-06-21] MEDS: FERROUS SULFATE 325 MG TABLET. PO SCH (07:33)
[2018-06-21] MEDS: SUCRALFATE 1 GM TABLET. PO SCH ×4 (07:33→20:55)
[2018-06-21] MEDS: ASPIRIN ENTERIC COATED 81 MG TABLET.DR. PO SCH (07:33)
[2018-06-21] MEDS: PANTOPRAZOLE 40 MG TABLET.DR. PO SCH (07:34)
[2018-06-21] MEDS: METOCLOPRAMIDE 10 MG TABLET. PO SCH ×3 (07:34→17:11)
[2018-06-21] MEDS: MORPHINE SULFATE 4 MG/ML VIAL. IV PRN ×2 (07:34→14:15)
[2018-06-21 07:50] VITALS: BP 123/69
--- NOTE | 2018-06-21 08:21 | PDOC ---
SUBJECTIVE ROS Follow-up for hyperkalemia, acute renal failure Patient claims she continues to have nausea and vomiting. Otherwise feeling well OBJECTIVE Vital Signs Vital Signs Date Time Temp Pulse Resp B/P (MAP) Pulse Ox O2 Delivery O2 Flow Rate FiO2 06/21/18 07:50 98.6 66 16 123/69 (87) 96 Room Air 98.6 I & 0 Intake and Output 06/21/18 07:00 Intake Total 870 ml Output Total 2600 ml Balance -1730 ml Intake Oral 870 ml Output Urine Total 2600 ml # Voids 1 PHYSICAL EXAM Physical Exam General Appearance: Awake: Alert Oriented x 2-3 Neck: No JVD or JVP Chest: CTA Saeed Heart: S1 S2 Abdomen - Soft NTND Extremities - No Edema DIAGNOSIS/ASSESSMENT Assessment & Plan PAM : Resolved with adequate hydration. May want to leave IV fluids on for the time being due to ongoing nausea vomiting and poor by mouth intake HYPERKALEMIA: Now resolved CKD STAGE 3 WITH CR OF ABOUT 1.3: Creatinine much better currently. Follow up as outpatient Hypomagnesemia: Now resolved Please call with questions concerns COMMENT/RELEVANT DATA Meds Current Medications Medications (Trade) Dose Ordered Sig/Alo Start Time Stop Time Status Last Admin Dose Admin Acetaminophen (Tylenol) 500 mg PRN Q6HRS PRN 06/18/18 16:45 06/20/18 08:42 500 MG Acetaminophen/ Hydrocodone Bitart (Lortab 5/325) 1 tab PRN BID PRN 06/18/18 16:45 06/20/18 20:54 1 TAB Albuterol Sulfate (Ventolin Neb Soln) 10 mg 1X ONCE 06/18/18 15:15 06/18/18 15:19 DC 06/18/18 15:42 10 MG Amlodipine Besylate (Norvasc) 10 mg BID 06/18/18 21:00 06/20/18 20:53 10 MG Aspirin (Ecotrin) 81 mg DAILYWBKFT 06/19/18 12:00 06/21/18 07:33 81 MG Docusate Sodium (Colace) 100 mg DAILY 06/19/18 09:00 06/19/18 09:20 100 MG Famotidine (Pepcid Vial) 20 mg 1X ONCE 06/18/18 14:30 06/18/18 14:32 DC 06/18/18 14:36 20 MG Ferrous Sulfate (Feosol) 325 mg DAILYWBKFT 06/19/18 08:00 06/21/18 07:33 325 MG Heparin Sodium (Porcine) (Heparin Sodium) 5,000 unit Q8HRS 06/18/18 17:15 06/21/18 05:09 5,000 UNIT Ibuprofen (Motrin) 400 mg 1X ONCE 06/20/18 09:30 06/20/18 09:31 DC 06/20/18 09:35 400 MG Insulin Glargine (Lantus) 20 units QHS 06/18/18 21:00 06/20/18 20:59 20 UNITS Levothyroxine Sodium (Synthroid) 100 mcg DAILY06 06/19/18 06:00 06/21/18 05:06 100 MCG Lorazepam (Ativan) 2 mg 1X PRN PRN 06/19/18 06:00 06/19/18 21:00 DC 06/19/18 07:33 2 MG Magnesium Sulfate 50 ml @ 25 mls/hr 1X ONCE 06/19/18 13:00 06/19/18 14:59 DC 06/19/18 12:44 25 MLS/HR Metoclopramide HCl (Reglan) 10 mg TIDAC 06/20/18 11:30 06/21/18 07:34 10 MG Metoprolol Succinate (Toprol Xl) 100 mg DAILY 06/19/18 09:00 06/20/18 08:42 100 MG Morphine Sulfate (Morphine Sulfate) 2 mg PRN Q2HR PRN 06/19/18 10:30 06/21/18 07:34 2 MG Non-Formulary Medication (Omeprazole ) 1 cap DAILY06 06/19/18 06:00 UNV Ondansetron HCl (Zofran Odt) 4 mg PRN Q6HRS PRN 06/19/18 10:30 06/20/18 14:32 4 MG Ondansetron HCl (Zofran) 4 mg PRN Q6HRS PRN 06/19/18 10:30 Pantoprazole Sodium (Protonix) 40 mg DAILYAC 06/19/18 07:30 06/21/18 07:34 40 MG Prochlorperazine Edisylate (Compazine) 10 mg PRN Q6HRS PRN 06/20/18 09:45 Cancel Promethazine HCl (Phenergan) 6.25 mg PRN Q6HRS PRN 06/20/18 09:45 06/20/18 10:11 6.25 MG Simvastatin (Zocor) 20 mg HS 06/18/18 21:00 06/20/18 20:53 20 MG Sodium Polystyrene Sulfonate (Kayexalate) 15 gm 1X ONCE 06/18/18 17:15 06/18/18 17:16 DC 06/18/18 17:54 15 GM Sodium Chloride 1,000 ml @ 75 mls/hr [id number] 06/19/18 11:45 06/20/18 16:46 75 MLS/HR Sucralfate (Carafate) 1 gm QIDACHS 06/18/18 17:00 06/21/18 07:33 1 GM Temazepam (Restoril) 7.5 mg PRN QHS PRN 06/18/18 16:45 06/20/18 20:53 7.5 MG Trazodone HCl (Desyrel) 50 mg QHS 06/18/18 21:00 06/20/18 20:53 50 MG Zolpidem Tartrate (Ambien) 5 mg PRN QHS PRN 06/18/18 16:45 06/18/18 17:40 DC Lab Laboratory Tests Test 06/20/18 11:24 06/20/18 17:14 06/20/18 20:49 06/21/18 04:44 Glucose (Fingerstick) 137 mg/dL (70-99) 147 mg/dL (70-99) 180 mg/dL (70-99) Sodium Level 142 mmol/L (136-145) Potassium Level 3.3 mmol/L (3.5-5.1) Chloride Level 106 mmol/L (98-107) Carbon Dioxide Level 22 mmol/L (21-32) Anion Gap 14 (6-14) Blood Urea Nitrogen 9 mg/dL (7-20) Creatinine 1.2 mg/dL (0.6-1.0) Estimated GFR (Cockcroft-Gault) 53.7 Glucose Level 104 mg/dL (70-99) Calcium Level 9.8 mg/dL (8.5-10.1) Results All relevant outside records, renal labs, imaging studies, telemetry/EKG's were reviewed. POLLY MORRIS MD Jun 21, 2018 08:21
[2018-06-21] MEDS: amLODIPine BESYLATE 10 MG TABLET PO SCH ×2 (08:32→20:56)
[2018-06-21] MEDS: DOCUSATE SODIUM 100 MG CAPSULE. PO SCH (08:32)
[2018-06-21] MEDS: METOPROLOL SUCC 24HR ER 100 MG TAB.ER.24H. PO SCH (08:33)
[2018-06-21] MEDS: ONDANSETRON ODT 4 MG TAB.RAPDIS. PO PRN (08:47)
[2018-06-21] MEDS ORDERED: POTASSIUM CHLORIDE 20 MEQ TABLET.ER. PO ONE (09:00)
[2018-06-21] MEDS: PROMETHAZINE 12.5 MG TABLET. PO PRN (09:47)
[2018-06-21 10:44] VITALS: BP 130/71
[2018-06-21] MEDS ORDERED: PROMETHAZINE 12.5 MG TABLET. PO PRN (11:30)
--- NOTE | 2018-06-21 11:32 | PDOC ---
PROGRESS NOTES Chief Complaint Chief Complaint N O A. fib, normal sinus rhythm Chronic abdominal pain H/o GERD and gastroparesis - ACTIVE NOW PAM/CKD, chronic anemia Hx Diverticulosis S/p cholecystectomy, h/o J tube placement and dislodgement H/o elevated lipase - not this time Mild cognitive impairment - history is usually a bit difficult CP, GERD (non cardiac) hyperkalemia 5.6 elevated d-dimer 15-VQ scan pending- neg venous dopplers NArcotic dependence History of Present Illness History of Present Illness admitted for new A. fib done at EKG PCP office but that seems not to be the case Has been NSR here at [facility] Cleared from cardiology-okay to transfer out of [facility] Now her issues are her chronic issues which is nausea emesis. Still nauseated, emesis last night. Known to me from gastroparesis symptoms that would take a week before would actually get better. Never was interested in J tube, or she would get better after a week stay here Looking at old records, last gastric emptying test which was delayed was in 2017 Plan: nothing by mouth post midnight for gastric emptying test tomorrow KCl 401 then 20 daily-potassium running low Keep liquid diet ADA T Okay to transfer out of [facility] to nonmonitored bed Discussed with RN Decrease morphine to 4 mg-ask pharmacy assistance-I cannot seem to decrease the frequency Vitals Vitals Vital Signs Date Time Temp Pulse Resp B/P (MAP) Pulse Ox O2 Delivery O2 Flow Rate FiO2 06/21/18 10:44 98.5 82 16 130/71 (90) 95 Room Air 98.5 Physical Exam General: Alert, Oriented X3, Cooperative, No acute distress Heart: Regular rate, Normal S1, Normal S2 Lungs: Clear, Other Abdomen: Normal bowel sounds, Soft, No tenderness Extremities: No cyanosis Skin: No breakdown Labs LABS Laboratory Tests Test 06/20/18 17:14 06/20/18 20:49 06/21/18 04:44 06/21/18 08:23 Glucose (Fingerstick) 147 mg/dL (70-99) 180 mg/dL (70-99) 110 mg/dL (70-99) Sodium Level 142 mmol/L (136-145) Potassium Level 3.3 mmol/L (3.5-5.1) Chloride Level 106 mmol/L (98-107) Carbon Dioxide Level 22 mmol/L (21-32) Anion Gap 14 (6-14) Blood Urea Nitrogen 9 mg/dL (7-20) Creatinine 1.2 mg/dL (0.6-1.0) Estimated GFR (Cockcroft-Gault) 53.7 Glucose Level 104 mg/dL (70-99) Calcium Level 9.8 mg/dL (8.5-10.1) Review of Systems Review of Systems POs for nausea,, headache, emesis, the rest of ROS negative, no chest pain, no palpitations Assessment and Plan Assessmemt and Plan Problems Medical Problems: (1) Anemia Status: Acute (2) CHF (congestive heart failure) Status: Acute (3) Elevated d-dimer Status: Acute (4) Hypercalcemia Status: Acute (5) Hyperkalemia Status: Acute (6) Hypomagnesemia Status: Acute (7) Renal insufficiency Status: Acute (8) Shortness of breath Status: Acute (9) Uncontrolled diabetes mellitus Status: Acute Comment Review of Relevant I have reviewed the following items mert (where applicable) has been applied. Labs Laboratory Tests Test 06/19/18 16:48 06/19/18 20:54 06/20/18 03:15 06/20/18 07:47 Glucose (Fingerstick) 112 mg/dL (70-99) 113 mg/dL (70-99) 105 mg/dL (70-99) Sodium Level 140 mmol/L (136-145) Potassium Level 3.8 mmol/L (3.5-5.1) Chloride Level 106 mmol/L (98-107) Carbon Dioxide Level 23 mmol/L (21-32) Anion Gap 11 (6-14) Blood Urea Nitrogen 12 mg/dL (7-20) Creatinine 1.4 mg/dL (0.6-1.0) Estimated GFR (Cockcroft-Gault) 45.0 Glucose Level 103 mg/dL (70-99) Calcium Level 9.8 mg/dL (8.5-10.1) Magnesium Level 1.8 mg/dL (1.8-2.4) Triglycerides Level 122 mg/dL (0-150) Cholesterol Level 141 mg/dL (0-200) LDL Cholesterol, Calculated 71 mg/dL (0-100) VLDL Cholesterol, Calculated 24 mg/dL (0-40) Non-HDL Cholesterol Calculated 95 mg/dL (0-129) HDL Cholesterol 46 mg/dL (40-60) Cholesterol/HDL Ratio 3.1 Test 06/20/18 11:24 06/20/18 17:14 06/20/18 20:49 06/21/18 04:44 Glucose (Fingerstick) 137 mg/dL (70-99) 147 mg/dL (70-99) 180 mg/dL (70-99) Sodium Level 142 mmol/L (136-145) Potassium Level 3.3 mmol/L (3.5-5.1) Chloride Level 106 mmol/L (98-107) Carbon Dioxide Level 22 mmol/L (21-32) Anion Gap 14 (6-14) Blood Urea Nitrogen 9 mg/dL (7-20) Creatinine 1.2 mg/dL (0.6-1.0) Estimated GFR (Cockcroft-Gault) 53.7 Glucose Level 104 mg/dL (70-99) Calcium Level 9.8 mg/dL (8.5-10.1) Test 06/21/18 08:23 Glucose (Fingerstick) 110 mg/dL (70-99) Laboratory Tests Test 06/20/18 17:14 06/20/18 20:49 06/21/18 04:44 06/21/18 08:23 Glucose (Fingerstick) 147 mg/dL (70-99) 180 mg/dL (70-99) 110 mg/dL (70-99) Sodium Level 142 mmol/L (136-145) Potassium Level 3.3 mmol/L (3.5-5.1) Chloride Level 106 mmol/L (98-107) Carbon Dioxide Level 22 mmol/L (21-32) Anion Gap 14 (6-14) Blood Urea Nitrogen 9 mg/dL (7-20) Creatinine 1.2 mg/dL (0.6-1.0) Estimated GFR (Cockcroft-Gault) 53.7 Glucose Level 104 mg/dL (70-99) Calcium Level 9.8 mg/dL (8.5-10.1) Medications Current Medications Famotidine (Pepcid Vial) 20 mg 1X ONCE IVP Last administered on 06/18/18at 1 4:36; Start 06/18/18 at 14:30; Stop 06/18/18 at 14:32; Status DC Albuterol Sulfate (Ventolin Neb Soln) 10 mg 1X ONCE CONT NEB Last administered on 06/18/18 15:42; Start 06/18/18 at 15:15; Stop 06/18/18 at 15:19; Status DC Magnesium Sulfate 50 ml @ 25 mls/hr 1X ONCE IV Last administered on 06/18/18 16:54; Start 06/18/18 at 15:30; Stop 06/18/18 at 17:29; Status DC Amlodipine Besylate (Norvasc) 10 mg BID PO Last administered on 06/21/18 08:32; Start 06/18/18 at 21:00 Docusate Sodium (Colace) 100 mg DAILY PO Last administered on 06/21/18 08:32; Start 06/19/18 at 09:00 Acetaminophen/ Hydrocodone Bitart (Lortab 5/325) 1 tab PRN BID PRN PO MODERATE PAIN Last administered on 06/20/18 20:54; Start 06/18/18 at 16:45 Levothyroxine Sodium (Synthroid) 100 mcg DAILY06 PO Last administered on 06/21/18 05:06; Start 06/19/18 at 06:00 Metoclopramide HCl (Reglan) 5 mg PRN TID PRN PO NAUSEA; Start 06/18/18 at 16:45; Stop 06/20/18 at 09:35; Status DC Metoprolol Succinate (Toprol Xl) 100 mg DAILY PO Last administered on 06/21/18 08:33; Start 06/19/18 at 09:00 Trazodone HCl (Desyrel) 50 mg QHS PO Last administered on 06/20/18 20:53; Start 06/18/18 at 21:00 Zolpidem Tartrate (Ambien) 5 mg PRN QHS PRN PO INSOMNIA; Start 06/18/18 at 16:45; Stop 06/18/18 at 17:40; Status DC Insulin Glargine (Lantus) 20 units QHS SQ Last administered on 06/20/18 20:59; Start 06/18/18 at 21:00 Ferrous Sulfate (Feosol) 325 mg DAILYWBKFT PO Last administered on 06/21/18 07:33; Start 06/19/18 at 08:00 Non-Formulary Medication (Omeprazole ) 1 cap DAILY06 PO ; Start 06/19/18 at 06:00; Status UNV Pantoprazole Sodium (Protonix) 40 mg DAILYAC PO Last administered on 06/21/18 07:34; Start 06/19/18 at 07:30 Simvastatin (Zocor) 20 mg HS PO Last administered on 06/20/18 20:53; Start at 21:00 Sucralfate (Carafate) 1 gm QIDACHS PO Last administered on 06/21/18 07:33; Start 06/18/18 at 17:00 Temazepam (Restoril) 7.5 mg PRN QHS PRN PO INSOMNIA Last administered on 06/20/18 20:53; Start 06/18/18 at 16:45 Acetaminophen (Tylenol) 500 mg PRN Q6HRS PRN PO MILD PAIN / TEMP Last administered on 06/20/18 08:42; Start 06/18/18 at 16:45 Morphine Sulfate (Morphine Sulfate) 2 mg PRN Q2HR PRN IV PAIN Last administered on 06/18/18 20:34; Start 06/18/18 at 16:45; Stop 06/18/18 at 20:52; Status DC Sodium Polystyrene Sulfonate (Kayexalate) 15 gm 1X ONCE PO Last administered on 06/18/18 17:54; Start 06/18/18 at 17:15; Stop 06/18/18 at 17:16; Status DC Heparin Sodium (Porcine) (Heparin Sodium) 5,000 unit Q8HRS SQ Last administered on 06/21/18 05:09; Start 06/18/18 at 17:15 Sodium Chloride 1,000 ml @ 75 mls/hr 1X ONCE IV Last administered on 06/18/18 19:07; Start 06/18/18 at 19:00; Stop 06/19/18 at 08:19; Status DC Lorazepam (Ativan) 2 mg 1X PRN PRN IV PRIOR TO VQ SCAN Last administered on 06/19/18 07:33; Start 06/19/18 at 06:00; Stop 06/19/18 at 21:00; Status DC Morphine Sulfate (Morphine Sulfate) 4 mg PRN Q2HR PRN IV PAIN Last administered on 06/19/18 09:23; Start 06/18/18 at 21:00; Stop 06/19/18 at 10:24; Status DC Morphine Sulfate (Morphine Sulfate) 2 mg PRN Q2HR PRN IV PAIN Last administered on 06/21/18 07:34; Start 06/19/18 at 10:30 Ondansetron HCl (Zofran) 4 mg PRN Q6HRS PRN IV NAUSEA/VOMITING, 1ST CHOICE; Start 06/19/18 at 10:30 Ondansetron HCl (Zofran Odt) 4 mg PRN Q6HRS PRN PO NAUSEA/VOMITING Last administered on 06/21/18 08:47; Start 06/19/18 at 10:30 Prochlorperazine Edisylate (Compazine) 10 mg PRN Q6HRS PRN IV NAUSEA/VOMITING; Start 06/19/18 at 10:30; Status UNV Aspirin (Ecotrin) 81 mg DAILYWBKFT PO Last administered on 06/21/18 07:33; Start 06/19/18 at 12:00 Sodium Chloride 1,000 ml @ 75 mls/hr [id number] IV Last administered on 06/20/18 16:46; Start 06/19/18 at 11:45 Magnesium Sulfate 50 ml @ 25 mls/hr 1X ONCE IV Last administered on 06/19/18 12:44; Start 06/19/18 at 13:00; Stop 06/19/18 at 14:59; Status DC Ibuprofen (Motrin) 400 mg 1X ONCE PO Last administered on 06/20/18 09:35; Start 06/20/18 at 09:30; Stop 06/20/18 at 09:31; Status DC Metoclopramide HCl (Reglan) 10 mg TIDAC PO Last administered on 06/21/18 07:34; Start 06/20/18 at 11:30 Prochlorperazine Edisylate (Compazine) 10 mg PRN Q6HRS PRN IV NAUSEA/VOMITING, 2ND CHOICE; Start 06/20/18 at 09:45; Status Cancel Promethazine HCl (Phenergan) 6.25 mg PRN Q6HRS PRN PO NAUSEA/VOMITING Last administered on 06/21/18 09:47; Start 06/20/18 at 09:45 Potassium Chloride (Klor-Con) 40 meq 1X ONCE PO Last administered on 06/21/18at 09:46; Start 06/21/18 at 09:00; Stop 06/21/18 at 09:03; Status DC Potassium Chloride (Klor-Con) 20 meq DAILYWBKFT PO ; Start 06/22/18 at 08:00 Active Scripts Active Cipro (Ciprofloxacin Hcl) 250 Mg Tablet 1 Tab PO BID Levemir Flextouch (Insulin Detemir) 100 Unit/1 Ml Insuln.pen 20 Unit SQ QHS 30 Days Reported Metformin Hcl 1,000 Mg Tablet 1,000 Mg PO BIDWMEALS Ferralet 90 Dual-Iron Tablet (Iron, Carb & Gluc/Fa/B12/C/Dss) 1 Each Tablet 1 Tab PO DAILY Reglan (Metoclopramide Hcl) 10 Mg Tablet 1 Tab PO TID PRN Sucralfate 1 Gm Tablet 1 Tab PO QIDACHS Metoprolol Succinate ( Xl ) (Metoprolol Succinate) 100 Mg Tab.er.24h 1 Tab PO DAILY Simvastatin 20 Mg Tablet 1 Tab PO QHS [place] 5-325 Tablet (Acetaminophen/Hydrocodone Bitart) 1 Each Tablet 1 Tab PO BID PRN Levothyroxine Sodium 100 Mcg Tablet 1 Tab PO DAILY05 Docusate Sodium 100 Mg Capsule 1 Cap PO DAILY Trazodone Hcl 50 Mg Tablet 50 Mg PO QHS Omeprazole 40 Mg Capsule.dr 1 Cap PO DAILY06 Ibuprofen 800 Mg Tablet 800 Mg PO TID PRN Losartan-Hctz 100-12.5 Mg Tab (Losartan/Hydrochlorothiazide) 1 Each Tablet 1 Tab PO DAILY Ambien (Zolpidem Tartrate) 5 Mg Tablet 5 Mg PO HS PRN Protonix (Pantoprazole Sodium) 20 Mg Tablet.dr 40 Mg PO DAILYAC Amlodipine Besylate 10 Mg Tablet 10 Mg PO BID Vitals/I & O Vital Sign - Last 24 Hours 06/20/18 06/20/18 06/20/18 06/20/18 14:32 14:42 15:30 16:47 Temp 98.4 98.4 Pulse 68 Resp 16 B/P (MAP) 140/84 (102) Pulse Ox 98 96 96 96 O2 Delivery Room Air Room Air Room Air Room Air 06/20/18 06/20/18 06/20/18 06/20/18 19:00 20:00 20:53 20:54 Temp 98.3 98.3 Pulse 60 68 Resp 17 22 B/P (MAP) 123/69 (87) 140/84 Pulse Ox 98 O2 Delivery Room Air Room Air Room Air 06/20/18 06/21/18 06/21/18 06/21/18 23:00 03:00 07:34 07:50 Temp 98.3 97.9 98.3 97.9 Pulse 55 62 Resp 17 16 B/P (MAP) 115/68 (84) 152/82 (105) Pulse Ox 98 93 O2 Delivery Room Air Room Air Room Air Room Air 06/21/18 06/21/18 06/21/18 06/21/18 07:50 08:00 08:32 08:33 Temp 98.6 98.6 Pulse 66 109 109 Resp 16 B/P (MAP) 123/69 (87) 123/69 123/69 Pulse Ox 96 96 O2 Delivery Room Air Room Air 06/21/18 10:44 Temp 98.5 98.5 Pulse 82 Resp 16 B/P (MAP) 130/71 (90) Pulse Ox 95 O2 Delivery Room Air Intake and Output 06/20/18 06/20/18 06/21/18 15:00 23:00 07:00 Intake Total 240 ml 550 ml 80 ml Output Total 2400 ml 200 ml Balance 240 ml -1850 ml -120 ml Nutrition Consultation Dietary Evaluation: Recommendations by RD: Increase Calorie Intake Comments: REC liberalize diet to regular to allow more food options/choices Expected Outcomes/Goals: PO intake to meet >75% est needs Malnutrition Findings: Food and Nutrition Intake (Mod: <75% est energy req 7days Weight Status: Overweight MARIBEL MARIEE MD Jun 21, 2018 11:32
--- NOTE | 2018-06-21 11:36 | PDOC ---
PROGRESS NOTES Subjective Subjective c/o nausea Objective Objective Vital Signs Date Time Temp Pulse Resp B/P (MAP) Pulse Ox O2 Delivery O2 Flow Rate FiO2 06/21/18 10:44 98.5 82 16 130/71 (90) 95 Room Air 98.5 Intake and Output 06/21/18 07:00 Intake Total 870 ml Output Total 2600 ml Balance -1730 ml Intake Oral 870 ml Output Urine Total 2600 ml # Voids 1 Physical Exam Abdomen: Normal bowel sounds, Soft, No tenderness Heart: Regular rate, Normal S1, Normal S2 Extremities: No cyanosis General: Alert, Oriented X3, Cooperative, No acute distress HEENT: Atraumatic, PERRLA, EOMI Lungs: Clear to auscultation, Normal air movement MUSCULOSKELETAL: No joint tenderness, No deformity, No swelling Neuro: Normal speech Psych/Mental Status: Mental status NL, Mood NL Skin: No breakdown Assessment Assessment 1. Persistent nausea/vomiting. h/o GERD and gastroparesis. as per IM 2. Hyperkalemia; replaced 3. Arrhythmia. Reportedly AFIB on EKG in PCP office. However, review of EKG from PCPs office, ED showed sinus rhythm. Telemetry did not show any episodes of atrial fibrillation. Patient denied any previous cardiac arrhythmias. We will consider event monitor as an outpatient. 4. Hypertension: Controlled 5. Hyperlipidemia: Statins 6. Diabetes mellitus type 2: Treat per primary team Plan Plan of Care Problems Medical Problems: (1) Anemia Status: Acute (2) CHF (congestive heart failure) Status: Acute (3) Elevated d-dimer Status: Acute (4) Hypercalcemia Status: Acute (5) Hyperkalemia Status: Acute (6) Hypomagnesemia Status: Acute (7) Renal insufficiency Status: Acute (8) Shortness of breath Status: Acute (9) Uncontrolled diabetes mellitus Status: Acute Comment Review of Relevant I have reviewed the following items mert (where applicable) has been applied. Labs Laboratory Tests Test 06/20/18 17:14 06/20/18 20:49 06/21/18 04:44 06/21/18 08:23 Glucose (Fingerstick) 147 mg/dL (70-99) 180 mg/dL (70-99) 110 mg/dL (70-99) Sodium Level 142 mmol/L (136-145) Potassium Level 3.3 mmol/L (3.5-5.1) Chloride Level 106 mmol/L (98-107) Carbon Dioxide Level 22 mmol/L (21-32) Anion Gap 14 (6-14) Blood Urea Nitrogen 9 mg/dL (7-20) Creatinine 1.2 mg/dL (0.6-1.0) Estimated GFR (Cockcroft-Gault) 53.7 Glucose Level 104 mg/dL (70-99) Calcium Level 9.8 mg/dL (8.5-10.1) Medications Current Medications Potassium Chloride (Klor-Con) 20 meq DAILYWBKFT PO ; Start 06/22/18 at 08:00 Potassium Chloride (Klor-Con) 40 meq 1X ONCE PO Last administered on 06/21/18at 09:46; Start 06/21/18 at 09:00; Stop 06/21/18 at 09:03; Status DC Promethazine HCl (Phenergan) 12.5 mg PRN Q6HRS PRN PO NAUSEA/VOMITING; Start 06/21/18 at 11:30 Vitals/I & O Vital Sign - Last 24 Hours 06/20/18 06/20/18 06/20/18 06/20/18 14:32 14:42 15:30 16:47 Temp 98.4 98.4 Pulse 68 Resp 16 B/P (MAP) 140/84 (102) Pulse Ox 98 96 96 96 O2 Delivery Room Air Room Air Room Air Room Air 06/20/18 06/20/18 06/20/18 06/20/18 19:00 20:00 20:53 20:54 Temp 98.3 98.3 Pulse 60 68 Resp 17 22 B/P (MAP) 123/69 (87) 140/84 Pulse Ox 98 O2 Delivery Room Air Room Air Room Air 06/20/18 06/21/18 06/21/18 06/21/18 23:00 03:00 07:34 07:50 Temp 98.3 97.9 98.3 97.9 Pulse 55 62 Resp 17 16 B/P (MAP) 115/68 (84) 152/82 (105) Pulse Ox 98 93 O2 Delivery Room Air Room Air Room Air Room Air 06/21/18 06/21/18 06/21/18 06/21/18 07:50 08:00 08:32 08:33 Temp 98.6 98.6 Pulse 66 109 109 Resp 16 B/P (MAP) 123/69 (87) 123/69 123/69 Pulse Ox 96 96 O2 Delivery Room Air Room Air 06/21/18 10:44 Temp 98.5 98.5 Pulse 82 Resp 16 B/P (MAP) 130/71 (90) Pulse Ox 95 O2 Delivery Room Air Intake and Output0 06/20/18 06/20/18 06/21/18 15:00 23:00 07:00 Intake Total 240 ml 550 ml 80 ml Output Total 2400 ml 200 ml Balance 240 ml -1850 ml -120 ml AARON ESPINOZA MD Jun 21, 2018 11:36
[2018-06-21] MEDS: HYDROcodone/APAP 5/325MG 1 TAB TABLET PO PRN ×2 (11:44→22:23)
--- NOTE | 2018-06-21 13:09 | NUR ---
patient transferred to 512 per wheelchair by this rn with no telemetry per DR MARIEE orders. patient stable at time of transfer. patients personal belongings transferred with patient and placed in patients closet in room 512. patients glasses on her at time of transfer. patient had NS running at 75mls/hr per orders when transferred.
[2018-06-21 15:00] VITALS: BP 134/76
[2018-06-21 19:00] VITALS: BP 135/77
[2018-06-21] MEDS: IV NORMAL SALINE 1000ML BAG 1,000 ML IV SCH (20:03)
[2018-06-21] MEDS: SIMVASTATIN 20 MG TABLET PO SCH (20:55)
[2018-06-21] MEDS: TEMAZEPAM 7.5 MG CAPSULE PO PRN (20:56)
[2018-06-21] MEDS: traZODone 50 MG TABLET. PO SCH (21:00)
[2018-06-21] MEDS: INSULIN GLARGINE 300 UNITS/3 ML INSULN.PEN. SQ SCH (21:05)
[2018-06-21 23:00] VITALS: BP 132/70
[2018-06-22] MEDS: ACETAMINOPHEN 500 MG TABLET PO PRN (01:47)
[2018-06-22 03:00] VITALS: BP 135/83
[2018-06-22] MEDS: LEVOTHYROXINE 100 MCG TABLET PO SCH (04:41)
[2018-06-22 05:27] LABS: CALCIUM 9.4 mg/dL (8.5-10.1); CREATININE 1.2 mg/dL (0.6-1.0); GFR 53.7; MAGNESIUM 1.3 mg/dL (1.8-2.4); POTASSIUM 3.3 mmol/L (3.5-5.1)
[2018-06-22] MEDS: HEPARIN for SUB-Q USE 5,000 UNIT/ML VIAL. SQ SCH ×3 (05:48→22:40)
[2018-06-22 07:00] VITALS: BP 134/77
[2018-06-22] MEDS: SUCRALFATE 1 GM TABLET. PO SCH ×2 (07:30→11:30)
[2018-06-22] MEDS: METOCLOPRAMIDE 10 MG TABLET. PO SCH ×2 (07:30→11:30)
[2018-06-22] MEDS: IV NORMAL SALINE 1000ML BAG 1,000 ML IV SCH ×2 (10:17→19:45)
--- NOTE | 2018-06-22 10:50 | NUR ---
DANNY following pt. PT/OT recommends SNU also recommends pt might able to go home with home health pending progress. Spoke with pt about SNU options vs HH. Pt has been with [facility] in the the past. Pt stated she has only been to [facility]. SW informed pt [facility] is out of network with [facility]. Discussed options and pt agreeable with [facility] pending insurance approval. DANNY phoned and faxed referral to [facility]. Pt acceptance and admission pending. Will continue to follow.
[2018-06-22 10:56] VITALS: BP 148/85
--- NOTE | 2018-06-22 10:57 | PDOC ---
PROGRESS NOTES Chief Complaint Chief Complaint normal sinus rhythm Chronic abdominal pain H/o GERD and gastroparesis - ACTIVE NOW PAM/CKD, chronic anemia Hx Diverticulosis S/p cholecystectomy, h/o J tube placement and dislodgement H/o elevated lipase - not this time Mild cognitive impairment - history is usually a bit difficult CP, GERD (non cardiac) hyperkalemia 5.6 elevated d-dimer 15-VQ scan REVIEWED neg venous dopplers NArcotic dependence HYPOKALEMIA HYPOMAGNESEMIA History of Present Illness History of Present Illness out of CVC Now her issues are her chronic issues which is nausea emesis. Still nauseated, emesis 06/20 NOW LOW K, MG . Known to me from gastroparesis symptoms that would take a week before would actually get better. Never was interested in J tube, Looking at old records, last gastric emptying test which was delayed was in 2017 Plan: nothing by mouth post midnight for gastric emptying test TODAY Keep liquid diet ADA T Discussed with RN Decrease morphine to 4 mg-Q 6 HRS Vitals Vitals Vital Signs Date Time Temp Pulse Resp B/P (MAP) Pulse Ox O2 Delivery O2 Flow Rate FiO2 06/22/18 07:00 98.3 65 20 134/ 95 Room Air 98.3 Physical Exam General: Alert, Oriented X3, Cooperative, No acute distress, mild distress Heart: Regular rate, Normal S1, Normal S2 Lungs: Clear, Other Abdomen: Normal bowel sounds, Soft, No tenderness Extremities: No cyanosis, No edema Skin: No breakdown, No significant lesion Labs LABS REASON: high d dimer, leg sweling PROCEDURE: VENOUS LOWER EXT BILATERAL Bilateral Lower Extremity Venous Doppler Ultrasound History: Elevated d-dimer and leg swelling Comparison: None Procedure: Color flow, duplex, spectral analysis and 2D images are obtained with and without compression in the area of the common femoral vein, superficial femoral vein - femoral vein junction, main femoral vein (superficial femoral vein) and popliteal vein. Veins of the proximal calf are also imaged. Findings: There is normal duplex flow, color flow and compressibility of all visualized vein segments. No evidence of deep venous thrombus is present. The calf veins are not well seen. Impression: No evidence of DVT. Electronically signed by: Rosy Cosby III, MD (06/18/2018 7:56 PM) [facility] DICTATED and SIGNED BY: ROSY COSBY III, MD DATE: 06/18/181955 Laboratory Tests Test 06/21/18 11:48 06/21/18 16:49 06/21/18 20:47 06/22/18 04:40 Glucose (Fingerstick) 146 mg/dL (70-99) 117 mg/dL (70-99) 165 mg/dL (70-99) Sodium Level 143 mmol/L (136-145) Potassium Level 3.3 mmol/L (3.5-5.1) Chloride Level 108 mmol/L (98-107) Carbon Dioxide Level 21 mmol/L (21-32) Anion Gap 14 (6-14) Blood Urea Nitrogen 5 mg/dL (7-20) Creatinine 1.2 mg/dL (0.6-1.0) Estimated GFR (Cockcroft-Gault) 53.7 Glucose Level 135 mg/dL (70-99) Calcium Level 9.4 mg/dL (8.5-10.1) Magnesium Level 1.3 mg/dL (1.8-2.4) Test 06/22/18 06:38 Glucose (Fingerstick) 106 mg/dL (70-99) Assessment and Plan Assessmemt and Plan Problems Medical Problems: (1) Anemia Status: Acute (2) CHF (congestive heart failure) Status: Acute (3) Elevated d-dimer Status: Acute (4) Hypercalcemia Status: Acute (5) Hyperkalemia Status: Acute (6) Hypomagnesemia Status: Acute (7) Renal insufficiency Status: Acute (8) Shortness of breath Status: Acute (9) Uncontrolled diabetes mellitus Status: Acute Comment Review of Relevant I have reviewed the following items mert (where applicable) has been applied. Labs Laboratory Tests Test 06/20/18 11:24 06/20/18 17:14 06/20/18 20:49 06/21/18 04:44 Glucose (Fingerstick) 137 mg/dL (70-99) 147 mg/dL (70-99) 180 mg/dL (70-99) Sodium Level 142 mmol/L (136-145) Potassium Level 3.3 mmol/L (3.5-5.1) Chloride Level 106 mmol/L (98-107) Carbon Dioxide Level 22 mmol/L (21-32) Anion Gap 14 (6-14) Blood Urea Nitrogen 9 mg/dL (7-20) Creatinine 1.2 mg/dL (0.6-1.0) Estimated GFR (Cockcroft-Gault) 53.7 Glucose Level 104 mg/dL (70-99) Calcium Level 9.8 mg/dL (8.5-10.1) Test 06/21/18 08:23 06/21/18 11:48 06/21/18 16:49 06/21/18 20:47 Glucose (Fingerstick) 110 mg/dL (70-99) 146 mg/dL (70-99) 117 mg/dL (70-99) 165 mg/dL (70-99) Test 06/22/18 04:40 06/22/18 06:38 Sodium Level 143 mmol/L (136-145) Potassium Level 3.3 mmol/L (3.5-5.1) Chloride Level 108 mmol/L (98-107) Carbon Dioxide Level 21 mmol/L (21-32) Anion Gap 14 (6-14) Blood Urea Nitrogen 5 mg/dL (7-20) Creatinine 1.2 mg/dL (0.6-1.0) Estimated GFR (Cockcroft-Gault) 53.7 Glucose Level 135 mg/dL (70-99) Calcium Level 9.4 mg/dL (8.5-10.1) Magnesium Level 1.3 mg/dL (1.8-2.4) Glucose (Fingerstick) 106 mg/dL (70-99) Laboratory Tests Test 06/21/18 11:48 06/21/18 16:49 06/21/18 20:47 06/22/18 04:40 Glucose (Fingerstick) 146 mg/dL (70-99) 117 mg/dL (70-99) 165 mg/dL (70-99) Sodium Level 143 mmol/L (136-145) Potassium Level 3.3 mmol/L (3.5-5.1) Chloride Level 108 mmol/L (98-107) Carbon Dioxide Level 21 mmol/L (21-32) Anion Gap 14 (6-14) Blood Urea Nitrogen 5 mg/dL (7-20) Creatinine 1.2 mg/dL (0.6-1.0) Estimated GFR (Cockcroft-Gault) 53.7 Glucose Level 135 mg/dL (70-99) Calcium Level 9.4 mg/dL (8.5-10.1) Magnesium Level 1.3 mg/dL (1.8-2.4) Test 06/22/18 06:38 Glucose (Fingerstick) 106 mg/dL (70-99) Medications Current Medications Famotidine (Pepcid Vial) 20 mg 1X ONCE IVP Last administered on 06/18/18 14:36; Start 06/18/18 at 14:30; Stop 06/18/18 at 14:32; Status DC Albuterol Sulfate (Ventolin Neb Soln) 10 mg 1X ONCE CONT NEB Last administered on 06/18/18at 15:42; Start 06/18/18 at 15:15; Stop 06/18/18 at 15:19; Status DC Magnesium Sulfate 50 ml @ 25 mls/hr 1X ONCE IV Last administered on 06/18/18at 16:54; Start 06/18/18 at 15:30; Stop 06/18/18 at 17:29; Status DC Amlodipine Besylate (Norvasc) 10 mg BID PO Last administered on 06/21/18at 20: 56; Start 06/18/18 at 21:00 Docusate Sodium (Colace) 100 mg DAILY PO Last administered on 06/21/18 08:32; Start 06/19/18 at 09:00 Acetaminophen/ Hydrocodone Bitart (Lortab 5/325) 1 tab PRN BID PRN PO MODERATE PAIN Last administered on 06/21/18 22:23; Start 06/18/18 at 16:45 Levothyroxine Sodium (Synthroid) 100 mcg DAILY06 PO Last administered on 06/21/18 05:06; Start 06/19/18 at 06:00 Metoclopramide HCl (Reglan) 5 mg PRN TID PRN PO NAUSEA; Start 06/18/18 at 16:45; Stop 06/20/18 at 09:35; Status DC Metoprolol Succinate (Toprol Xl) 100 mg DAILY PO Last administered on 06/21/18 08:33; Start 06/19/18 at 09:00 Trazodone HCl (Desyrel) 50 mg QHS PO Last administered on 06/21/18at 21:00; Start 06/18/18 at 21:00 Zolpidem Tartrate (Ambien) 5 mg PRN QHS PRN PO INSOMNIA; Start 06/18/18 at 16:45; Stop 06/18/18 at 17:40; Status DC Insulin Glargine (Lantus) 20 units QHS SQ Last administered on 06/21/18 21:05; Start 06/18/18 at 21:00 Ferrous Sulfate (Feosol) 325 mg DAILYWBKFT PO Last administered on 06/21/18 07:33; Start 06/19/18 at 08:00 Non-Formulary Medication (Omeprazole ) 1 cap DAILY06 PO ; Start 06/19/18 at 06:00; Status UNV Pantoprazole Sodium (Protonix) 40 mg DAILYAC PO Last administered on 06/21/18 07:34; Start 06/19/18 at 07:30 Simvastatin (Zocor) 20 mg HS PO Last administered on 06/21/18 20:55; Start 06/18/18 at 21:00 Sucralfate (Carafate) 1 gm QIDACHS PO Last administered on 06/21/18 20:55; Start 06/18/18 at 17:00 Temazepam (Restoril) 7.5 mg PRN QHS PRN PO INSOMNIA Last administered on 20:56; Start 06/18/18 at 16:45 Acetaminophen (Tylenol) 500 mg PRN Q6HRS PRN PO MILD PAIN / TEMP Last administered on 06/22/18 01:47; Start 06/18/18 at 16:45 Morphine Sulfate (Morphine Sulfate) 2 mg PRN Q2HR PRN IV PAIN Last administered on 06/18/18 20:34; Start 06/18/18 at 16:45; Stop 06/18/18 at 20:52; Status DC Sodium Polystyrene Sulfonate (Kayexalate) 15 gm 1X ONCE PO Last administered on 06/18/18 17:54; Start 06/18/18 at 17:15; Stop 06/18/18 at 17:16; Status DC Heparin Sodium (Porcine) (Heparin Sodium) 5,000 unit Q8HRS SQ Last administered on 06/22/18 05:48; Start 06/18/18 at 17:15 Sodium Chloride 1,000 ml @ 75 mls/hr 1X ONCE IV Last administered on 06/18/18 19:07; Start 06/18/18 at 19:00; Stop 06/19/18 at 08:19; Status DC Lorazepam (Ativan) 2 mg 1X PRN PRN IV PRIOR TO VQ SCAN Last administered on 06/19/18at 07:33; Start 06/19/18 at 06:00; Stop 06/19/18 at 21:00; Status DC Morphine Sulfate (Morphine Sulfate) 4 mg PRN Q2HR PRN IV PAIN Last administered on 06/19/18at 09:23; Start 06/18/18 at 21:00; Stop 06/19/18 at 10:24; Status DC Morphine Sulfate (Morphine Sulfate) 2 mg PRN Q2HR PRN IV PAIN Last administered on 06/21/18at 14:15; Start 06/19/18 at 10:30; Stop 06/21/18 at 16:46; Status DC Ondansetron HCl (Zofran) 4 mg PRN Q6HRS PRN IV NAUSEA/VOMITING, 1ST CHOICE; Start 06/19/18 at 10:30 Ondansetron HCl (Zofran Odt) 4 mg PRN Q6HRS PRN PO NAUSEA/VOMITING Last administered on 06/21/18at 08:47; Start 06/19/18 at 10:30 Prochlorperazine Edisylate (Compazine) 10 mg PRN Q6HRS PRN IV NAUSEA/VOMITING; Start 06/19/18 at 10:30; Status UNV Aspirin (Ecotrin) 81 mg DAILYWBKFT PO Last administered on 06/21/18at 07:33; Start 06/19/18 at 12:00 Sodium Chloride 1,000 ml @ 75 mls/hr [id number] IV Last administered on 06/22/18at 10:17; Start 06/19/18 at 11:45 Magnesium Sulfate 50 ml @ 25 mls/hr 1X ONCE IV Last administered on 06/19/18at 12:44; Start 06/19/18 at 13:00; Stop 06/19/18 at 14:59; Status DC Ibuprofen (Motrin) 400 mg 1X ONCE PO Last administered on 06/20/18at 09:35; Start 06/20/18 at 09:30; Stop 06/20/18 at 09:31; Status DC Metoclopramide HCl (Reglan) 10 mg TIDAC PO Last administered on 06/21/18at 17:11; Start 06/20/18 at 11:30 Prochlorperazine Edisylate (Compazine) 10 mg PRN Q6HRS PRN IV NAUSEA/VOMITING, 2ND CHOICE; Start 06/20/18 at 09:45; Status Cancel Promethazine HCl (Phenergan) 6.25 mg PRN Q6HRS PRN PO NAUSEA/VOMITING Last administered on 06/21/18at 09:47; Start 06/20/18 at 09:45; Stop 06/21/18 at 11:29; Status DC Potassium Chloride (Klor-Con) 40 meq 1X ONCE PO Last administered on 06/21/18at 09:46; Start 06/21/18 at 09:00; Stop 06/21/18 at 09:03; Status DC Potassium Chloride (Klor-Con) 20 meq DAILYWBKFT PO ; Start 06/22/18 at 08:00 Promethazine HCl (Phenergan) 12.5 mg PRN Q6HRS PRN PO NAUSEA/VOMITING; Start 06/21/18 at 11:30 Morphine Sulfate (Morphine Sulfate) 2 mg PRN Q4HRS PRN IV PAIN; Start 06/21/18 at 17:00 Active Scripts Active Cipro (Ciprofloxacin Hcl) 250 Mg Tablet 1 Tab PO BID Levemir Flextouch (Insulin Detemir) 100 Unit/1 Ml Insuln.pen 20 Unit SQ QHS 30 Days Reported Metformin Hcl 1,000 Mg Tablet 1,000 Mg PO BIDWMEALS Ferralet 90 Dual-Iron Tablet (Iron, Carb & Gluc/Fa/B12/C/Dss) 1 Each Tablet 1 Tab PO DAILY Reglan (Metoclopramide Hcl) 10 Mg Tablet 1 Tab PO TID PRN Sucralfate 1 Gm Tablet 1 Tab PO QIDACHS Metoprolol Succinate ( Xl ) (Metoprolol Succinate) 100 Mg Tab.er.24h 1 Tab PO DAILY Simvastatin 20 Mg Tablet 1 Tab PO QHS [place] 5-325 Tablet (Acetaminophen/Hydrocodone Bitart) 1 Each Tablet 1 Tab PO BID PRN Levothyroxine Sodium 100 Mcg Tablet 1 Tab PO DAILY05 Docusate Sodium 100 Mg Capsule 1 Cap PO DAILY Trazodone Hcl 50 Mg Tablet 50 Mg PO QHS Omeprazole 40 Mg Capsule.dr 1 Cap PO DAILY06 Ibuprofen 800 Mg Tablet 800 Mg PO TID PRN Losartan-Hctz 100-12.5 Mg Tab (Losartan/Hydrochlorothiazide) 1 Each Tablet 1 Tab PO DAILY Ambien (Zolpidem Tartrate) 5 Mg Tablet 5 Mg PO HS PRN Protonix (Pantoprazole Sodium) 20 Mg Tablet.dr 40 Mg PO DAILYAC Amlodipine Besylate 10 Mg Tablet 10 Mg PO BID Vitals/I & O Vital Sign - Last 24 Hours 06/21/18 06/21/18 06/21/18 06/21/18 11:44 13:50 14:15 15:00 Temp 98.2 98.2 Pulse 64 Resp 18 B/P (MAP) 134/76 (95) Pulse Ox 95 98 O2 Delivery Room Air Room Air Room Air Room Air 06/21/18 06/21/18 06/21/18 06/21/18 19:00 20:00 20:56 22:23 Temp 98.8 98.8 Pulse 73 73 Resp 20 20 B/P (MAP) 135/77 (96) 135/77 Pulse Ox 99 O2 Delivery Room Air Room Air 06/21/18 06/21/18 06/22/18 06/22/18 23:00 23:28 03:00 07:00 Temp 98.0 98.7 98.3 98.0 98.7 98.3 Pulse 60 78 65 Resp 20 16 20 20 B/P (MAP) 132/70 (90) 135/83 (100) 134/ Pulse Ox 98 98 95 O2 Delivery Room Air Room Air Room Air Room Air Intake and Output 06/21/18 06/21/18 06/22/18 14:59 22:59 06:59 Intake Total 400 ml 490 ml 500 ml Output Total 500 ml Balance 400 ml 490 ml 0 ml Nutrition Consultation Dietary Evaluation: Recommendations by RD: Increase Calorie Intake Comments: REC liberalize diet to regular to allow more food options/choices Expected Outcomes/Goals: PO intake to meet >75% est needs Malnutrition Findings: Food and Nutrition Intake (Mod: <75% est energy req 7days Weight Status: Overweight EDEN MONTOYA MD Jun 22, 2018 10:57
[2018-06-22] MEDS ORDERED: MAGNESIUM SULFATE 2GM 50 ML IV ONE (14:00)
[2018-06-22] MEDS: PANTOPRAZOLE 40 MG TABLET.DR. PO SCH (14:11)
[2018-06-22] MEDS: POTASSIUM CHLORIDE 20 MEQ TABLET.ER. PO SCH (14:12)
[2018-06-22] MEDS: ASPIRIN ENTERIC COATED 81 MG TABLET.DR. PO SCH (14:12)
[2018-06-22] MEDS: FERROUS SULFATE 325 MG TABLET. PO SCH (14:12)
[2018-06-22] MEDS: amLODIPine BESYLATE 10 MG TABLET PO SCH ×2 (14:13→21:15)
[2018-06-22] MEDS: DOCUSATE SODIUM 100 MG CAPSULE. PO SCH (14:13)
[2018-06-22] MEDS: METOPROLOL SUCC 24HR ER 100 MG TAB.ER.24H. PO SCH (14:14)
[2018-06-22] MEDS: POTASSIUM CHLORIDE 10MEQ 100 ML IV SCH ×4 (14:15→21:29)
--- NOTE | 2018-06-22 14:23 | NUR ---
DANNY following pt. Pt has been accepted [facility] pending insurance approval. Emmie reported she will submit for auth. Will continue to follow.
[2018-06-22] MEDS: ONDANSETRON PF 4 MG/2 ML VIAL. IV PRN (14:43)
--- NOTE | 2018-06-22 14:51 | RAD ---
Radionuclide gastric emptying study, 06/22/2018: HISTORY: Gastric distress, nausea and vomiting The study was performed utilizing a solid test meal labeled with 2.2 mCi of technetium 99m sulfur colloid. The following gastric retention values were obtained: 1 hour-58 percent (normal is less than 90 percent) 2 hours-40 percent (normal is less than 60 percent) 3 hours-33 percent (normal is less than 30 percent) 4 hours-3 percent (normal is less than 10 percent) A gastric T1/2 of 100 minutes was also calculated. This value is at the upper limits of normal. IMPRESSION: Borderline increased gastric retention at 3 hours as described above. Electronically signed by: John Schaffer MD (06/22/2018 2:47 PM) [facility]
[2018-06-22 15:00] VITALS: BP 173/100
[2018-06-22] MEDS: MORPHINE SULFATE 4 MG/ML VIAL. IV PRN ×2 (15:35→21:47)
--- NOTE | 2018-06-22 16:30 | PDOC2 ---
GI CONSULT Reason For Consult: Abd pain, n/v HPI: HPI: 72 y/o female who we have seen in the past. Evaluated in ER on 06/18 w/ reportedly abnormal EKG, SOA, and n/v (though she says n/v began since admission - h/o mild cognitive impairment). Currently is vomiting (bilious w/ bits of food) and c/o mid abd pain. H/o gastroparesis and GERD, chronic issues w/ decreased appetite, n/v, and abd pain. Has tried Reglan and e-mycin in the past - says she takes Reglan TIDAC at home. Also had J tube placement (and then dislodgement). Past 'scopes w/ Dr. кЕатерина Momin in 2008 showed normal gastric biopsies, hyperplastic polyp, and diverticulosis. In the past has reported more recent 'scopes w/ Dr. Novoa. GES in 11/2016 w/ moderate delay (T1/2 122 min). That was repeated today w/ results as below - basically normal. 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 S/p cholecystectomy. Elevated lipase in the past (normal this time) w/ normal CA19-9 and no pancreas abnormalities on imaging. Here, she is receiving Reglan tabs 10mg TID, Phenergan (PRN - not given), morphine, Zofran (IV and ODT), PO iron, PO PPI, Sucralfate, and hydrocodone. PMH: PMH: GERD, gastroparesis, diverticulosis, HTN, PE, DVT, anxiety, OA, DM, nephrol ithiasis, hypothyroidism, cognitive impairment, UTI cholecystectomy, knee replacement, hysterectomy, thyroidectomy, J tube place ment/dislodgement FH: Family History: CAD, DM, Hypertension Social History: Smoke: No ALCOHOL: none Drugs: None ROS: Difficult to obtain, see HPI. Vitals: Vitals: Vital Signs Date Time Temp Pulse Resp B/P (MAP) Pulse Ox O2 Delivery O2 Flow Rate FiO2 06/22/18 15:35 20 98 Room Air 06/22/18 15:00 98.7 113 173/100 (124) 98.7 Labs: Labs: Laboratory Tests Test 06/21/18 16:49 06/21/18 20:47 06/22/18 04:40 06/22/18 06:38 Glucose (Fingerstick) 117 mg/dL (70-99) 165 mg/dL (70-99) 106 mg/dL (70-99) Sodium Level 143 mmol/L (136-145) Potassium Level 3.3 mmol/L (3.5-5.1) Chloride Level 108 mmol/L (98-107) Carbon Dioxide Level 21 mmol/L (21-32) Anion Gap 14 (6-14) Blood Urea Nitrogen 5 mg/dL (7-20) Creatinine 1.2 mg/dL (0.6-1.0) Estimated GFR (Cockcroft-Gault) 53.7 Glucose Level 135 mg/dL (70-99) Calcium Level 9.4 mg/dL (8.5-10.1) Magnesium Level 1.3 mg/dL (1.8-2.4) Test 06/22/18 11:14 Glucose (Fingerstick) 188 mg/dL (70-99) Allergies: Coded Allergies: Sulfa (Sulfonamide Antibiotics) (Verified Allergy, Intermediate, 04/19/18) prochlorperazine (Verified Adverse Reaction, Intermediate, DIZZY, 04/19/18) Medications: Current Medications Medications (Trade) Dose Ordered Sig/Alo Route PRN Reason Start Time Stop Time Status Last Admin Dose Admin Potassium Chloride (Klor-Con) 20 meq DAILYWBKFT PO 06/22/18 08:00 06/22/18 14:12 Morphine Sulfate (Morphine Sulfate) 2 mg PRN Q4HRS PRN IV PAIN 06/21/18 17:00 06/22/18 15:35 Magnesium Sulfate 50 ml @ 25 mls/hr 1X ONCE IV 06/22/18 14:00 06/22/18 15:59 DC 06/22/18 14:16 Potassium Chloride/Water 100 ml @ 100 mls/hr Q1H IV 06/22/18 14:00 06/22/18 17:59 06/22/18 15:35 Imaging: Imaging: GES 06/22 1 hour-58 percent (normal is less than 90 percent) 2 hours-40 percent (normal is less than 60 percent) 3 hours-33 percent (normal is less than 30 percent) 4 hours-3 percent (normal is less than 10 percent) A gastric T1/2 of 100 minutes was also calculated. This value is at the upper limits of normal. IMPRESSION: Borderline increased gastric retention at 3 hours as described above. Lower Extrem US 06/18 Impression: No evidence of DVT. ?VQ scan 06/19 CXR 06/18 IMPRESSION: Stable chronic findings, no acute infiltrate. PE: GEN: actively vomiting HEENT: Atraumatic, PERRL LUNGS: CTAB HEART: tachycardic ABD: NABS, S/ND, tender mid abd EXTREMITY: No edema SKIN: No rashes, no jaundice NEURO/PSYCH: A & O 3, shaky A/P: A/P: Recurrent n/v, h/o gastroparesis - repeat GES as above Suspect h/o GERD CRC screen - 2008 w/ Dr. Momin, ?more recently w/ Dr. Novoa Diverticulosis S/p cholecystectomy H/o elevated lipase, normal CA19-9, normal pancreas imaging HTN, PAM (better), h/o mild cognitive impairment -- Change to IV Reglan and PPI, try clears. Stop Sucralfate. Avoid morphine and hydrocodone if possible. HARLEY GOEL Jun 22, 2018 16:30
[2018-06-22] MEDS: METOCLOPRAMIDE HCL 10 MG/2 ML VIAL. IV SCH ×2 (16:49→21:16)
[2018-06-22 19:00] VITALS: BP 167/96
[2018-06-22] MEDS: traZODone 50 MG TABLET. PO SCH (21:14)
[2018-06-22] MEDS: SIMVASTATIN 20 MG TABLET PO SCH (21:14)
[2018-06-22] MEDS: FAMOTIDINE 20 MG/2 ML VIAL IVP SCH (21:15)
[2018-06-22] MEDS: INSULIN GLARGINE 300 UNITS/3 ML INSULN.PEN. SQ SCH (21:26)
[2018-06-22 23:00] VITALS: BP 159/95
[2018-06-23 02:47] VITALS: BP 158/86
[2018-06-23 05:20] LABS: ALBUMIN 3.7 g/dL (3.4-5.0); CALCIUM 9.7 mg/dL (8.5-10.1); CREATININE 1.2 mg/dL (0.6-1.0); GFR 53.7; POTASSIUM 3.8 mmol/L (3.5-5.1); TOTAL BILIRUBIN 0.4 mg/dL (0.2-1.0); TOTAL PROTEIN 7.5 g/dL (6.4-8.2)
[2018-06-23] MEDS: LEVOTHYROXINE 100 MCG TABLET PO SCH (05:57)
[2018-06-23] MEDS: ONDANSETRON PF 4 MG/2 ML VIAL. IV PRN (05:57)
[2018-06-23] MEDS: HEPARIN for SUB-Q USE 5,000 UNIT/ML VIAL. SQ SCH ×3 (06:04→22:28)
[2018-06-23 06:19] LABS: BASO # 0.2 x10^3/uL (0.0-0.2); BASO % 1 % (0-3); EOS % 0 % (0-3); HEMATOCRIT 31.9 % (36.0-47.0); HEMOGLOBIN 10.7 g/dL (12.0-15.5); LYMPH # 1.7 x10^3/uL (1.0-4.8); LYMPH % 15 % (24-48); MEAN CORPUSCULAR HEMOGLOBIN 31 pg (25-35); MEAN CORPUSCULAR HGB CONC 34 g/dL (31-37); MEAN CORPUSCULAR VOLUME 91 fL (79-100); MONO # 0.5 x10^3/uL (0.0-1.1); MONO % 5 % (0-9); NEUT # 9.4 x10^3uL (1.8-7.7); NEUT % 80 % (31-73); PLATELET COUNT 219 x10^3/uL (140-400); RED BLOOD COUNT 3.49 x10^6/uL (3.50-5.40); RED CELL DISTRIBUTION WIDTH 13.8 % (11.5-14.5); WHITE BLOOD COUNT 11.9 x10^3/uL (4.0-11.0)
[2018-06-23 07:00] VITALS: BP 138/81
--- NOTE | 2018-06-23 07:48 | RAD ---
Acute abdomen series with chest, 3 views, 06/22/2018: HISTORY: Nausea, vomiting, abdominal pain The abdominal gas pattern is unremarkable without evidence of obstruction. No free air is seen in the abdomen. There is no evidence organomegaly. Left-sided pelvic calcifications are probably phleboliths. There is a moderate thoracolumbar scoliosis with moderate multilevel degenerative change. The heart is mildly enlarged. There is calcific plaquing and tortuosity of the thoracic aorta. There is an unchanged linear opacity in the left lower chest compatible with scarring. No new pulmonary abnormality is seen. There is no evidence of pleural fluid. IMPRESSION: No acute abdominal abnormality is detected. Electronically signed by: John Schaffer MD (06/23/2018 7:45 AM) [facility]
[2018-06-23] MEDS: MORPHINE SULFATE 4 MG/ML VIAL. IV PRN (08:44)
[2018-06-23] MEDS: METOPROLOL SUCC 24HR ER 100 MG TAB.ER.24H. PO SCH (08:52)
[2018-06-23] MEDS: POTASSIUM CHLORIDE 20 MEQ TABLET.ER. PO SCH (08:52)
[2018-06-23] MEDS: ASPIRIN ENTERIC COATED 81 MG TABLET.DR. PO SCH (08:53)
[2018-06-23] MEDS: DOCUSATE SODIUM 100 MG CAPSULE. PO SCH (08:53)
[2018-06-23] MEDS: FERROUS SULFATE 325 MG TABLET. PO SCH (08:53)
[2018-06-23] MEDS: amLODIPine BESYLATE 10 MG TABLET PO SCH ×2 (08:53→20:30)
[2018-06-23] MEDS: FAMOTIDINE 20 MG/2 ML VIAL IVP SCH ×2 (08:54→20:32)
[2018-06-23] MEDS: METOCLOPRAMIDE HCL 10 MG/2 ML VIAL. IV SCH ×4 (08:54→20:32)
[2018-06-23] MEDS: IV NORMAL SALINE 1000ML BAG 1,000 ML IV SCH ×2 (08:59→23:08)
--- NOTE | 2018-06-23 09:17 | PDOC ---
Subjective: Subjective: Better today - tolerating clear liquids w/o n/v or abd pain. Hasn't stooled. Would like full liquids for lunch. Objective: Vital Signs: Vital Signs Date Time Temp Pulse Resp B/P (MAP) Pulse Ox O2 Delivery O2 Flow Rate FiO2 06/23/18 08:53 80 138/81 06/23/18 08:44 20 94 Room Air 06/23/18 07:00 99.6 99.6 Labs: Laboratory Tests Test 06/22/18 11:14 06/22/18 16:07 06/22/18 20:12 06/23/18 04:35 Glucose (Fingerstick) 188 mg/dL 140 mg/dL 223 mg/dL Sodium Level 135 mmol/L Potassium Level 3.8 mmol/L Chloride Level 102 mmol/L Carbon Dioxide Level 17 mmol/L Anion Gap 16 Blood Urea Nitrogen 6 mg/dL Creatinine 1.2 mg/dL Estimated GFR (Cockcroft-Gault) 53.7 BUN/Creatinine Ratio 5 Glucose Level 241 mg/dL Calcium Level 9.7 mg/dL Total Bilirubin 0.4 mg/dL Aspartate Amino Transf (AST/SGOT) 22 U/L Alanine Aminotransferase (ALT/SGPT) 9 U/L Alkaline Phosphatase 42 U/L Total Protein 7.5 g/dL Albumin 3.7 g/dL Albumin/Globulin Ratio 1.0 Test 06/23/18 06:10 06/23/18 07:38 White Blood Count 11.9 x10^3/uL Red Blood Count 3.49 x10^6/uL Hemoglobin 10.7 g/dL Hematocrit 31.9 % Mean Corpuscular Volume 91 fL Mean Corpuscular Hemoglobin 31 pg Mean Corpuscular Hemoglobin Concent 34 g/dL Red Cell Distribution Width 13.8 % Platelet Count 219 x10^3/uL Neutrophils (%) (Auto) 80 % Lymphocytes (%) (Auto) 15 % Monocytes (%) (Auto) 5 % Eosinophils (%) (Auto) 0 % Basophils (%) (Auto) 1 % Neutrophils # (Auto) 9.4 x10^3uL Lymphocytes # (Auto) 1.7 x10^3/uL Monocytes # (Auto) 0.5 x10^3/uL Eosinophils # (Auto) 0.0 x10^3/uL Basophils # (Auto) 0.2 x10^3/uL Glucose (Fingerstick) 203 mg/dL Imaging: AAS 06/22 IMPRESSION: No acute abdominal abnormality is detected. PE: GEN: NAD LUNGS: CTAB HEART: RRR ABD: quiet BS, soft, non-tender NEURO/PSYCH: A & O 3 A/P: Recurrent n/v Chronic anemia - normal iron studies 03/2018 ?chronic pain - tells me no abd pain Leukocytosis, low grade fever -- Continue IV Reglan and H2 cecy (preferred by pharmacy w/ PPI in short bedoya pply). Okay to try full liquids. Try less morphine and hydrocodone. Add Miralax. HARLEY GOEL Jun 23, 2018 09:17
[2018-06-23] MEDS ORDERED: POLYETHYLENE GLYCOL 3350 17 GM PACKET. PO PRN (09:30)
[2018-06-23] MEDS: POLYETHYLENE GLYCOL 3350 17 GM PACKET. PO SCH (10:00)
[2018-06-23 11:00] VITALS: BP 130/78
--- NOTE | 2018-06-23 12:39 | PDOC ---
PROGRESS NOTES Chief Complaint Chief Complaint normal sinus rhythm Chronic abdominal pain H/o GERD and gastroparesis - ACTIVE NOW PAM/CKD, chronic anemia Hx Diverticulosis S/p cholecystectomy, h/o J tube placement and dislodgement H/o elevated lipase - not this time Mild cognitive impairment - history is usually a bit difficult CP, GERD (non cardiac) hyperkalemia 5.6 elevated d-dimer 15-VQ scan REVIEWED neg venous dopplers NArcotic dependence HYPOKALEMIA HYPOMAGNESEMIA PLAN 06/23. SYMPTOMS SLOW TO RESOLVE, D/C IV MORPHINE Borderline increased gastric retention at 3 hours a History of Present Illness History of Present Illness out of CVC Now her issues are her chronic issues which is nausea emesis. Still nauseated, emesis 06/20 NOW LOW K, MG . Known to me from gastroparesis symptoms that would take a week before would actually get better. Never was interested in J tube, Looking at old records, last gastric emptying test which was delayed was in 2017 Plan: nothing by mouth post midnight for gastric emptying test TODAY Keep liquid diet ADA T Discussed with RN Decrease morphine to 4 mg-Q 6 HRS Vitals Vitals Vital Signs Date Time Temp Pulse Resp B/P (MAP) Pulse Ox O2 Delivery O2 Flow Rate FiO2 06/23/18 11:00 99.6 87 18 130/78 (95) 97 Room Air 99.6 Physical Exam General: Alert, Oriented X3, Cooperative, No acute distress, mild distress Heart: Regular rate, Normal S1, Normal S2 Lungs: Clear, Other Abdomen: Normal bowel sounds, Soft, No tenderness Extremities: No cyanosis, No edema Skin: No breakdown, No significant lesion Labs LABS STATUS: ADM IN ORD. PHYSICIAN: MARIBEL MARIEE MD REASON: gastroparesis? abN in 2017 PROCEDURE: GASTRIC EMPTYING STUDY Radionuclide gastric emptying study, 06/22/2018: HISTORY: Gastric distress, nausea and vomiting The study was performed utilizing a solid test meal labeled with 2.2 mCi of technetium 99m sulfur colloid. The following gastric retention values were obtained: 1 hour-58 percent (normal is less than 90 percent) 2 hours-40 percent (normal is less than 60 percent) 3 hours-33 percent (normal is less than 30 percent) 4 hours-3 percent (normal is less than 10 percent) A gastric T1/2 of 100 minutes was also calculated. This value is at the upper limits of normal. IMPRESSION: Borderline increased gastric retention at 3 hours as described above. Electronically signed by: John Schaffer MD (06/22/2018 2:47 PM) [facility] DICTATED and SIGNED BY: JOHN SCHAFFER MD Laboratory Tests Test 06/22/18 16:07 06/22/18 20:12 06/23/18 04:35 06/23/18 06:10 Glucose (Fingerstick) 140 mg/dL (70-99) 223 mg/dL (70-99) Sodium Level 135 mmol/L (136-145) Potassium Level 3.8 mmol/L (3.5-5.1) Chloride Level 102 mmol/L (98-107) Carbon Dioxide Level 17 mmol/L (21-32) Anion Gap 16 (6-14) Blood Urea Nitrogen 6 mg/dL (7-20) Creatinine 1.2 mg/dL (0.6-1.0) Estimated GFR (Cockcroft-Gault) 53.7 BUN/Creatinine Ratio 5 (6-20) Glucose Level 241 mg/dL (70-99) Calcium Level 9.7 mg/dL (8.5-10.1) Total Bilirubin 0.4 mg/dL (0.2-1.0) Aspartate Amino Transf (AST/SGOT) 22 U/L (15-37) Alanine Aminotransferase (ALT/SGPT) 9 U/L (14-59) Alkaline Phosphatase 42 U/L (46-116) Total Protein 7.5 g/dL (6.4-8.2) Albumin 3.7 g/dL (3.4-5.0) Albumin/Globulin Ratio 1.0 (1.0-1.7) White Blood Count 11.9 x10^3/uL (4.0-11.0) Red Blood Count 3.49 x10^6/uL (3.50-5.40) Hemoglobin 10.7 g/dL (12.0-15.5) Hematocrit 31.9 % (36.0-47.0) Mean Corpuscular Volume 91 fL (79-100) Mean Corpuscular Hemoglobin 31 pg (25-35) Mean Corpuscular Hemoglobin Concent 34 g/dL (31-37) Red Cell Distribution Width 13.8 % (11.5-14.5) Platelet Count 219 x10^3/uL (140-400) Neutrophils (%) (Auto) 80 % (31-73) Lymphocytes (%) (Auto) 15 % (24-48) Monocytes (%) (Auto) 5 % (0-9) Eosinophils (%) (Auto) 0 % (0-3) Basophils (%) (Auto) 1 % (0-3) Neutrophils # (Auto) 9.4 x10^3uL (1.8-7.7) Lymphocytes # (Auto) 1.7 x10^3/uL (1.0-4.8) Monocytes # (Auto) 0.5 x10^3/uL (0.0-1.1) Eosinophils # (Auto) 0.0 x10^3/uL (0.0-0.7) Basophils # (Auto) 0.2 x10^3/uL (0.0-0.2) Test 06/23/18 07:38 06/23/18 12:00 Glucose (Fingerstick) 203 mg/dL (70-99) 216 mg/dL (70-99) Assessment and Plan Assessmemt and Plan Problems Medical Problems: (1) Anemia Status: Acute (2) CHF (congestive heart failure) Status: Acute (3) Elevated d-dimer Status: Acute (4) Hypercalcemia Status: Acute (5) Hyperkalemia Status: Acute (6) Hypomagnesemia Status: Acute (7) Renal insufficiency Status: Acute (8) Shortness of breath Status: Acute (9) Uncontrolled diabetes mellitus Status: Acute Comment Review of Relevant I have reviewed the following items mert (where applicable) has been applied. Labs Laboratory Tests Test 06/21/18 16:49 06/21/18 20:47 06/22/18 04:40 06/22/18 06:38 Glucose (Fingerstick) 117 mg/dL (70-99) 165 mg/dL (70-99) 106 mg/dL (70-99) Sodium Level 143 mmol/L (136-145) Potassium Level 3.3 mmol/L (3.5-5.1) Chloride Level 108 mmol/L (98-107) Carbon Dioxide Level 21 mmol/L (21-32) Anion Gap 14 (6-14) Blood Urea Nitrogen 5 mg/dL (7-20) Creatinine 1.2 mg/dL (0.6-1.0) Estimated GFR (Cockcroft-Gault) 53.7 Glucose Level 135 mg/dL (70-99) Calcium Level 9.4 mg/dL (8.5-10.1) Magnesium Level 1.3 mg/dL (1.8-2.4) Test 06/22/18 11:14 06/22/18 16:07 06/22/18 20:12 06/23/18 04:35 Glucose (Fingerstick) 188 mg/dL (70-99) 140 mg/dL (70-99) 223 mg/dL (70-99) Sodium Level 135 mmol/L (136-145) Potassium Level 3.8 mmol/L (3.5-5.1) Chloride Level 102 mmol/L (98-107) Carbon Dioxide Level 17 mmol/L (21-32) Anion Gap 16 (6-14) Blood Urea Nitrogen 6 mg/dL (7-20) Creatinine 1.2 mg/dL (0.6-1.0) Estimated GFR (Cockcroft-Gault) 53.7 BUN/Creatinine Ratio 5 (6-20) Glucose Level 241 mg/dL (70-99) Calcium Level 9.7 mg/dL (8.5-10.1) Total Bilirubin 0.4 mg/dL (0.2-1.0) Aspartate Amino Transf (AST/SGOT) 22 U/L (15-37) Alanine Aminotransferase (ALT/SGPT) 9 U/L (14-59) Alkaline Phosphatase 42 U/L (46-116) Total Protein 7.5 g/dL (6.4-8.2) Albumin 3.7 g/dL (3.4-5.0) Albumin/Globulin Ratio 1.0 (1.0-1.7) Test 06/23/18 06:10 06/23/18 07:38 06/23/18 12:00 White Blood Count 11.9 x10^3/uL (4.0-11.0) Red Blood Count 3.49 x10^6/uL (3.50-5.40) Hemoglobin 10.7 g/dL (12.0-15.5) Hematocrit 31.9 % (36.0-47.0) Mean Corpuscular Volume 91 fL (79-100) Mean Corpuscular Hemoglobin 31 pg (25-35) Mean Corpuscular Hemoglobin Concent 34 g/dL (31-37) Red Cell Distribution Width 13.8 % (11.5-14.5) Platelet Count 219 x10^3/uL (140-400) Neutrophils (%) (Auto) 80 % (31-73) Lymphocytes (%) (Auto) 15 % (24-48) Monocytes (%) (Auto) 5 % (0-9) Eosinophils (%) (Auto) 0 % (0-3) Basophils (%) (Auto) 1 % (0-3) Neutrophils # (Auto) 9.4 x10^3uL (1.8-7.7) Lymphocytes # (Auto) 1.7 x10^3/uL (1.0-4.8) Monocytes # (Auto) 0.5 x10^3/uL (0.0-1.1) Eosinophils # (Auto) 0.0 x10^3/uL (0.0-0.7) Basophils # (Auto) 0.2 x10^3/uL (0.0-0.2) Glucose (Fingerstick) 203 mg/dL (70-99) 216 mg/dL (70-99) Laboratory Tests Test 06/22/18 16:07 06/22/18 20:12 06/23/18 04:35 06/23/18 06:10 Glucose (Fingerstick) 140 mg/dL (70-99) 223 mg/dL (70-99) Sodium Level 135 mmol/L (136-145) Potassium Level 3.8 mmol/L (3.5-5.1) Chloride Level 102 mmol/L (98-107) Carbon Dioxide Level 17 mmol/L (21-32) Anion Gap 16 (6-14) Blood Urea Nitrogen 6 mg/dL (7-20) Creatinine 1.2 mg/dL (0.6-1.0) Estimated GFR (Cockcroft-Gault) 53.7 BUN/Creatinine Ratio 5 (6-20) Glucose Level 241 mg/dL (70-99) Calcium Level 9.7 mg/dL (8.5-10.1) Total Bilirubin 0.4 mg/dL (0.2-1.0) Aspartate Amino Transf (AST/SGOT) 22 U/L (15-37) Alanine Aminotransferase (ALT/SGPT) 9 U/L (14-59) Alkaline Phosphatase 42 U/L (46-116) Total Protein 7.5 g/dL (6.4-8.2) Albumin 3.7 g/dL (3.4-5.0) Albumin/Globulin Ratio 1.0 (1.0-1.7) White Blood Count 11.9 x10^3/uL (4.0-11.0) Red Blood Count 3.49 x10^6/uL (3.50-5.40) Hemoglobin 10.7 g/dL (12.0-15.5) Hematocrit 31.9 % (36.0-47.0) Mean Corpuscular Volume 91 fL (79-100) Mean Corpuscular Hemoglobin 31 pg (25-35) Mean Corpuscular Hemoglobin Concent 34 g/dL (31-37) Red Cell Distribution Width 13.8 % (11.5-14.5) Platelet Count 219 x10^3/uL (140-400) Neutrophils (%) (Auto) 80 % (31-73) Lymphocytes (%) (Auto) 15 % (24-48) Monocytes (%) (Auto) 5 % (0-9) Eosinophils (%) (Auto) 0 % (0-3) Basophils (%) (Auto) 1 % (0-3) Neutrophils # (Auto) 9.4 x10^3uL (1.8-7.7) Lymphocytes # (Auto) 1.7 x10^3/uL (1.0-4.8) Monocytes # (Auto) 0.5 x10^3/uL (0.0-1.1) Eosinophils # (Auto) 0.0 x10^3/uL (0.0-0.7) Basophils # (Auto) 0.2 x10^3/uL (0.0-0.2) Test 06/23/18 07:38 06/23/18 12:00 Glucose (Fingerstick) 203 mg/dL (70-99) 216 mg/dL (70-99) Medications Current Medications Famotidine (Pepcid Vial) 20 mg 1X ONCE IVP Last administered on 06/18/18at 14:36; Start 06/18/18 at 14:30; Stop 06/18/18 at 14:32; Status DC Albuterol Sulfate (Ventolin Neb Soln) 10 mg 1X ONCE CONT NEB Last administered on 06/18/18 15:42; Start 06/18/18 at 15:15; Stop 06/18/18 at 15:19; Status DC Magnesium Sulfate 50 ml @ 25 mls/hr 1X ONCE IV Last administered on 06/18/18 16:54; Start 06/18/18 at 15:30; Stop 06/18/18 at 17:29; Status DC Amlodipine Besylate (Norvasc) 10 mg BID PO Last administered on 06/23/18 08:53; Start 06/18/18 at 21:00 Docusate Sodium (Colace) 100 mg DAILY PO Last administered on 06/23/18 08:53; Start 06/19/18 at 09:00 Acetaminophen/ Hydrocodone Bitart (Lortab 5/325) 1 tab PRN BID PRN PO MODERATE PAIN Last administered on 06/21/18 22:23; Start 06/18/18 at 16:45 Levothyroxine Sodium (Synthroid) 100 mcg DAILY06 PO Last administered on 06/23/18 05:57; Start 06/19/18 at 06:00 Metoclopramide HCl (Reglan) 5 mg PRN TID PRN PO NAUSEA; Start 06/18/18 at 16:45; Stop 06/20/18 at 09:35; Status DC Metoprolol Succinate (Toprol Xl) 100 mg DAILY PO Last administered on 06/23/18 08:52; Start 06/19/18 at 09:00 Trazodone HCl (Desyrel) 50 mg QHS PO Last administered on 06/22/18 21:14; Start 06/18/18 at 21:00 Zolpidem Tartrate (Ambien) 5 mg PRN QHS PRN PO INSOMNIA; Start 06/18/18 at 16:45; Stop 06/18/18 at 17:40; Status DC Insulin Glargine (Lantus) 20 units QHS SQ Last administered on 06/22/18 21:26; Start 06/18/18 at 21:00 Ferrous Sulfate (Feosol) 325 mg DAILYWBKFT PO Last administered on 06/23/18 08:53; Start 06/19/18 at 08:00 Non-Formulary Medication (Omeprazole ) 1 cap DAILY06 PO ; Start 06/19/18 at 06:00; Status UNV Pantoprazole Sodium (Protonix) 40 mg DAILYAC PO Last administered on 06/22/18 14:11; Start 06/19/18 at 07:30; Stop 06/22/18 at 16:29; Status DC Simvastatin (Zocor) 20 mg HS PO Last administered on 06/22/18 21:14; Start 06/18/18 at 21:00 Sucralfate (Carafate) 1 gm QIDACHS PO Last administered on 06/21/18 20:55; Start 06/18/18 at 17:00; Stop 06/22/18 at 16:29; Status DC Temazepam (Restoril) 7.5 mg PRN QHS PRN PO INSOMNIA Last administered on 06/21/18 20:56; Start 06/18/18 at 16:45 Acetaminophen (Tylenol) 500 mg PRN Q6HRS PRN PO MILD PAIN / TEMP Last administered on 06/22/18 01:47; Start 06/18/18 at 16:45 Morphine Sulfate (Morphine Sulfate) 2 mg PRN Q2HR PRN IV PAIN Last administered on 06/18/18 20:34; Start 06/18/18 at 16:45; Stop 06/18/18 at 20:52; Status DC Sodium Polystyrene Sulfonate (Kayexalate) 15 gm 1X ONCE PO Last administered on 06/18/18 17:54; Start 06/18/18 at 17:15; Stop 06/18/18 at 17:16; Status DC Heparin Sodium (Porcine) (Heparin Sodium) 5,000 unit Q8HRS SQ Last administered on 06/23/18 06:04; Start 06/18/18 at 17:15 Sodium Chloride 1,000 ml @ 75 mls/hr 1X ONCE IV Last administered on 06/18/18 19:07; Start 06/18/18 at 19:00; Stop 06/19/18 at 08:19; Status DC Lorazepam (Ativan) 2 mg 1X PRN PRN IV PRIOR TO VQ SCAN Last administered on 06/19/18at 07:33; Start 06/19/18 at 06:00; Stop 06/19/18 at 21:00; Status DC Morphine Sulfate (Morphine Sulfate) 4 mg PRN Q2HR PRN IV PAIN Last administered on 06/19/18 09:23; Start 06/18/18 at 21:00; Stop 06/19/18 at 10:24; Status DC Morphine Sulfate (Morphine Sulfate) 2 mg PRN Q2HR PRN IV PAIN Last administered on 06/21/18 14:15; Start 06/19/18 at 10:30; Stop 06/21/18 at 16:46; Status DC Ondansetron HCl (Zofran) 4 mg PRN Q6HRS PRN IV NAUSEA/VOMITING, 1ST CHOICE Last administered on 06/23/18 05:57; Start 06/19/18 at 10:30 Ondansetron HCl (Zofran Odt) 4 mg PRN Q6HRS PRN PO NAUSEA/VOMITING Last administered on 06/21/18 08:47; Start 06/19/18 at 10:30 Prochlorperazine Edisylate (Compazine) 10 mg PRN Q6HRS PRN IV NAUSEA/VOMITING; Start 06/19/18 at 10:30; Status UNV Aspirin (Ecotrin) 81 mg DAILYWBKFT PO Last administered on 06/23/18 08:53; Start 06/19/18 at 12:00 Sodium Chloride 1,000 ml @ 75 mls/hr [id number] IV Last administered on 06/23/18 08:59; Start 06/19/18 at 11:45 Magnesium Sulfate 50 ml @ 25 mls/hr 1X ONCE IV Last administered on 06/19/18 12:44; Start 06/19/18 at 13:00; Stop 06/19/18 at 14:59; Status DC Ibuprofen (Motrin) 400 mg 1X ONCE PO Last administered on 06/20/18 09:35; Start 06/20/18 at 09:30; Stop 06/20/18 at 09:31; Status DC Metoclopramide HCl (Reglan) 10 mg TIDAC PO Last administered on 06/21/18 17:11; Start 06/20/18 at 11:30; Stop 06/22/18 at 16:29; Status DC Prochlorperazine Edisylate (Compazine) 10 mg PRN Q6HRS PRN IV NAUSEA/VOMITING, 2ND CHOICE; Start 06/20/18 at 09:45; Status Cancel Promethazine HCl (Phenergan) 6.25 mg PRN Q6HRS PRN PO NAUSEA/VOMITING Last administered on 06/21/18 09:47; Start 06/20/18 at 09:45; Stop 06/21/18 at 11:29; Status DC Potassium Chloride (Klor-Con) 40 meq 1X ONCE PO Last administered on 06/21/18 09:46; Start 06/21/18 at 09:00; Stop 06/21/18 at 09:03; Status DC Potassium Chloride (Klor-Con) 20 meq DAILYWBKFT PO Last administered on 06/23 08:52; Start 06/22/18 at 08:00 Promethazine HCl (Phenergan) 12.5 mg PRN Q6HRS PRN PO NAUSEA/VOMITING 2ND CHOICE Last administered on 06/22/18 16:01; Start 06/21/18 at 11:30; Stop 06/22/18 at 16:29; Status DC Morphine Sulfate (Morphine Sulfate) 2 mg PRN Q4HRS PRN IV PAIN Last administered on 06/23/18 08:44; Start 06/21/18 at 17:00 Magnesium Sulfate 50 ml @ 25 mls/hr 1X ONCE IV Last administered on 06/22/18 14:16; Start 06/22/18 at 14:00; Stop 06/22/18 at 15:59; Status DC Potassium Chloride/Water 100 ml @ 100 mls/hr Q1H IV Last administered on 06/22/18 21:29; Start 06/22/18 at 14:00; Stop 06/22/18 at 17:59; Status DC Metoclopramide HCl (Reglan Vial) 10 mg QIDACHS IV Last administered on 06/23/18 08:54; Start 06/22/18 at 16:30 Famotidine (Pepcid Vial) 20 mg BID IVP Last administered on 06/23/18 08:54; Start 06/22/18 at 21:00 Polyethylene Glycol (miraLAX PACKET) 17 gm DAILY PO ; Start 06/23/18 at 10:00 Polyethylene Glycol (miraLAX PACKET) 17 gm PRN DAILY PRN PO CONSTIPATION; Start 06/23/18 at 09:30 Active Scripts Active Cipro (Ciprofloxacin Hcl) 250 Mg Tablet 1 Tab PO BID Levemir Flextouch (Insulin Detemir) 100 Unit/1 Ml Insuln.pen 20 Unit SQ QHS 30 Days Reported Metformin Hcl 1,000 Mg Tablet 1,000 Mg PO BIDWMEALS Ferralet 90 Dual-Iron Tablet (Iron, Carb & Gluc/Fa/B12/C/Dss) 1 Each Tablet 1 Tab PO DAILY Reglan (Metoclopramide Hcl) 10 Mg Tablet 1 Tab PO TID PRN Sucralfate 1 Gm Tablet 1 Tab PO QIDACHS Metoprolol Succinate ( Xl ) (Metoprolol Succinate) 100 Mg Tab.er.24h 1 Tab PO DAILY Simvastatin 20 Mg Tablet 1 Tab PO QHS [place] 5-325 Tablet (Acetaminophen/Hydrocodone Bitart) 1 Each Tablet 1 Tab PO BID PRN Levothyroxine Sodium 100 Mcg Tablet 1 Tab PO DAILY05 Docusate Sodium 100 Mg Capsule 1 Cap PO DAILY Trazodone Hcl 50 Mg Tablet 50 Mg PO QHS Omeprazole 40 Mg Capsule.dr 1 Cap PO DAILY06 Ibuprofen 800 Mg Tablet 800 Mg PO TID PRN Losartan-Hctz 100-12.5 Mg Tab (Losartan/Hydrochlorothiazide) 1 Each Tablet 1 Tab PO DAILY Ambien (Zolpidem Tartrate) 5 Mg Tablet 5 Mg PO HS PRN Protonix (Pantoprazole Sodium) 20 Mg Tablet.dr 40 Mg PO DAILYAC Amlodipine Besylate 10 Mg Tablet 10 Mg PO BID Vitals/I & O Vital Sign - Last 24 Hours 06/22/18 06/22/18 06/22/18 06/22/18 14:13 14:14 15:00 15:35 Temp 98.7 98.7 Pulse 81 81 113 Resp 20 20 B/P (MAP) 148/85 148/85 173/100 (124) Pulse Ox 99 98 O2 Delivery Room Air Room Air 06/22/18 06/22/18 06/22/18 06/22/18 16:05 19:00 20:03 21:15 Temp 99.5 99.5 Pulse 94 94 Resp 18 B/P (MAP) 167/96 (119) 167/96 Pulse Ox 98 98 O2 Delivery Room Air Room Air 06/22/18 06/22/18 06/22/18 06/23/18 21:47 22:17 23:00 02:47 Temp 99.5 99.7 99.5 99.7 Pulse 99 102 Resp 16 16 17 16 B/P (MAP) 159/95 (116) 158/86 (110) Pulse Ox 94 96 O2 Delivery Room Air Room Air Room Air Room Air 06/23/18 06/23/18 06/23/18 06/23/18 07:00 08:44 08:52 08:53 Temp 99.6 99.6 Pulse 80 80 80 Resp 18 20 B/P (MAP) 138/81 (100) 138/81 138/81 Pulse Ox 97 94 O2 Delivery Room Air Room Air 06/23/18 11:00 Temp 99.6 99.6 Pulse 87 Resp 18 B/P (MAP) 130/78 (95) Pulse Ox 97 O2 Delivery Room Air Intake and Output 06/22/18 06/22/18 06/23/18 15:00 23:00 07:00 Intake Total 400 ml Balance 400 ml Nutrition Consultation Dietary Evaluation: Recommendations by RD: Increase Calorie Intake Comments: REC liberalize diet to regular to allow more food options/choices Expected Outcomes/Goals: PO intake to meet >75% est needs Malnutrition Findings: Food and Nutrition Intake (Mod: <75% est energy req 7days Weight Status: Overweight EDEN MONTOYA MD Jun 23, 2018 12:39
[2018-06-23] MEDS ORDERED: DEXTROSE 50% 25 GM / 50ML DISP.SYRIN. IV PRN (18:15)
[2018-06-23] MEDS: INSULIN LISPRO 300 UNITS/3 ML INSULN.PEN. SQ SCH (18:30)
[2018-06-23] MEDS: SIMVASTATIN 20 MG TABLET PO SCH (20:31)
[2018-06-23] MEDS: traZODone 50 MG TABLET. PO SCH (20:31)
[2018-06-23] MEDS: INSULIN GLARGINE 300 UNITS/3 ML INSULN.PEN. SQ SCH (20:40)
[2018-06-23] MEDS: HYDROcodone/APAP 5/325MG 1 TAB TABLET PO PRN (20:48)
[2018-06-23 23:00] VITALS: BP 125/80
[2018-06-24] MEDS: HYDROcodone/APAP 5/325MG 1 TAB TABLET PO PRN ×2 (01:03→12:15)
[2018-06-24 03:00] VITALS: BP 128/58
[2018-06-24] MEDS: LEVOTHYROXINE 100 MCG TABLET PO SCH (05:48)
[2018-06-24] MEDS: HEPARIN for SUB-Q USE 5,000 UNIT/ML VIAL. SQ SCH ×2 (05:53→14:00)
[2018-06-24 07:00] VITALS: BP 149/95
[2018-06-24] MEDS: METOCLOPRAMIDE HCL 10 MG/2 ML VIAL. IV SCH ×2 (08:26→12:15)
[2018-06-24] MEDS: FAMOTIDINE 20 MG/2 ML VIAL IVP SCH (08:26)
[2018-06-24] MEDS: amLODIPine BESYLATE 10 MG TABLET PO SCH (08:28)
[2018-06-24] MEDS: FERROUS SULFATE 325 MG TABLET. PO SCH (08:28)
[2018-06-24] MEDS: ASPIRIN ENTERIC COATED 81 MG TABLET.DR. PO SCH (08:28)
[2018-06-24] MEDS: METOPROLOL SUCC 24HR ER 100 MG TAB.ER.24H. PO SCH (08:28)
[2018-06-24] MEDS: POTASSIUM CHLORIDE 20 MEQ TABLET.ER. PO SCH (08:29)
[2018-06-24] MEDS: DOCUSATE SODIUM 100 MG CAPSULE. PO SCH (08:29)
[2018-06-24] MEDS: POLYETHYLENE GLYCOL 3350 17 GM PACKET. PO SCH (08:29)
[2018-06-24] MEDS: INSULIN LISPRO 300 UNITS/3 ML INSULN.PEN. SQ SCH ×2 (08:38→12:22)
--- NOTE | 2018-06-24 08:49 | NUR ---
SW following pt. Insurance has approved SNU. Physician and RN notified.
--- NOTE | 2018-06-24 10:28 | PDOC ---
PROGRESS NOTES Chief Complaint Chief Complaint acute renal failure, CKD STAGE 3-4 Chronic abdominal pain H/o GERD and gastroparesis - ACTIVE NOW PAM/CKD, chronic anemia Hx Diverticulosis S/p cholecystectomy, h/o J tube placement and dislodgement H/o elevated lipase - not this time Mild-MOD cognitive impairment - CP, GERD (non cardiac) hyperkalemia 5.6 elevated d-dimer 15-VQ scan REVIEWED neg venous dopplers NArcotic dependence HYPOKALEMIA REPLACED HYPOMAGNESEMIA REPLACED D/C IV MORPHINE PLAN 06/23. SYMPTOMS SLOW TO RESOLVE, D/C IV MORPHINE Borderline increased gastric retention at 3 hours a 06/24 TO SNF TODAY History of Present Illness History of Present Illness out of CVC Now her issues are her chronic issues which is nausea emesis. Still nauseated, emesis 06/20 NOW LOW K, MG . Known to me from gastroparesis symptoms that would take a week before would actually get better. Never was interested in J tube, Looking at old records, last gastric emptying test which was delayed was in 2017 Plan: nothing by mouth post midnight for gastric emptying test TODAY Keep liquid diet ADA T Discussed with RN Decrease morphine to 4 mg-Q 6 HRS Acute abdomen series with chest, 3 views, 06/22/2018: HISTORY: Nausea, vomiting, abdominal pain The abdominal gas pattern is unremarkable without evidence of obstruction. No free air is seen in the abdomen. There is no evidence organomegaly. Left-sided pelvic calcifications are probably phleboliths. There is a moderate thoracolumbar scoliosis with moderate multilevel degenerative change. The heart is mildly enlarged. There is calcific plaquing and tortuosity of the thoracic aorta. There is an unchanged linear opacity in the left lower chest compatible with scarring. No new pulmonary abnormality is seen. There is no evidence of pleural fluid. IMPRESSION: No acute abdominal abnormality is detected. Electronically signed by: John Schaffer MD (06/23/2018 7:45 AM) [facility] DICTATED and SIGNED BY: JOHN SCHAFFER MD DATE: 06/23/18 0745 Vitals Vitals Vital Signs Date Time Temp Pulse Resp B/P (MAP) Pulse Ox O2 Delivery O2 Flow Rate FiO2 06/24/18 08:28 148/95 06/24/18 07:00 99.2 95 20 95 99.2 06/24/18 02:03 Room Air Physical Exam General: Alert, Oriented X3, Cooperative, No acute distress, mild distress Heart: Regular rate, Normal S1, Normal S2 Lungs: Clear, Other Abdomen: Normal bowel sounds, Soft, No tenderness, No hepatosplenomegaly Extremities: No cyanosis, No edema Skin: No breakdown, No significant lesion Labs LABS Laboratory Tests Test 06/23/18 12:00 06/23/18 16:19 06/23/18 20:57 06/24/18 08:07 Glucose (Fingerstick) 216 mg/dL (70-99) 230 mg/dL (70-99) 177 mg/dL (70-99) 181 mg/dL (70-99) Assessment and Plan Assessmemt and Plan Problems Medical Problems: (1) Anemia Status: Acute (2) CHF (congestive heart failure) Status: Acute (3) Elevated d-dimer Status: Acute (4) Hypercalcemia Status: Acute (5) Hyperkalemia Status: Acute (6) Hypomagnesemia Status: Acute (7) Renal insufficiency Status: Acute (8) Shortness of breath Status: Acute (9) Uncontrolled diabetes mellitus Status: Acute Comment Review of Relevant I have reviewed the following items mert (where applicable) has been applied. Labs Laboratory Tests Test 06/22/18 11:14 06/22/18 16:07 06/22/18 20:12 06/23/18 04:35 Glucose (Fingerstick) 188 mg/dL (70-99) 140 mg/dL (70-99) 223 mg/dL (70-99) Sodium Level 135 mmol/L (136-145) Potassium Level 3.8 mmol/L (3.5-5.1) Chloride Level 102 mmol/L (98-107) Carbon Dioxide Level 17 mmol/L (21-32) Anion Gap 16 (6-14) Blood Urea Nitrogen 6 mg/dL (7-20) Creatinine 1.2 mg/dL (0.6-1.0) Estimated GFR (Cockcroft-Gault) 53.7 BUN/Creatinine Ratio 5 (6-20) Glucose Level 241 mg/dL (70-99) Calcium Level 9.7 mg/dL (8.5-10.1) Total Bilirubin 0.4 mg/dL (0.2-1.0) Aspartate Amino Transf (AST/SGOT) 22 U/L (15-37) Alanine Aminotransferase (ALT/SGPT) 9 U/L (14-59) Alkaline Phosphatase 42 U/L (46-116) Total Protein 7.5 g/dL (6.4-8.2) Albumin 3.7 g/dL (3.4-5.0) Albumin/Globulin Ratio 1.0 (1.0-1.7) Test 06/23/18 06:10 06/23/18 07:38 06/23/18 12:00 06/23/18 16:19 White Blood Count 11.9 x10^3/uL (4.0-11.0) Red Blood Count 3.49 x10^6/uL (3.50-5.40) Hemoglobin 10.7 g/dL (12.0-15.5) Hematocrit 31.9 % (36.0-47.0) Mean Corpuscular Volume 91 fL (79-100) Mean Corpuscular Hemoglobin 31 pg (25-35) Mean Corpuscular Hemoglobin Concent 34 g/dL (31-37) Red Cell Distribution Width 13.8 % (11.5-14.5) Platelet Count 219 x10^3/uL (140-400) Neutrophils (%) (Auto) 80 % (31-73) Lymphocytes (%) (Auto) 15 % (24-48) Monocytes (%) (Auto) 5 % (0-9) Eosinophils (%) (Auto) 0 % (0-3) Basophils (%) (Auto) 1 % (0-3) Neutrophils # (Auto) 9.4 x10^3uL (1.8-7.7) Lymphocytes # (Auto) 1.7 x10^3/uL (1.0-4.8) Monocytes # (Auto) 0.5 x10^3/uL (0.0-1.1) Eosinophils # (Auto) 0.0 x10^3/uL (0.0-0.7) Basophils # (Auto) 0.2 x10^3/uL (0.0-0.2) Glucose (Fingerstick) 203 mg/dL (70-99) 216 mg/dL (70-99) 230 mg/dL (70-99) Test 06/23/18 20:57 06/24/18 08:07 Glucose (Fingerstick) 177 mg/dL (70-99) 181 mg/dL (70-99) Laboratory Tests Test 06/23/18 12:00 06/23/18 16:19 06/23/18 20:57 06/24/18 08:07 Glucose (Fingerstick) 216 mg/dL (70-99) 230 mg/dL (70-99) 177 mg/dL (70-99) 181 mg/dL (70-99) Medications Current Medications Famotidine (Pepcid Vial) 20 mg 1X ONCE IVP Last administered on 06/18/18at 14:36; Start 06/18/18 at 14:30; Stop 06/18/18 at 14:32; Status DC Albuterol Sulfate (Ventolin Neb Soln) 10 mg 1X ONCE CONT NEB Last administered on 06/18/18at 15:42; Start 06/18/18 at 15:15; Stop 06/18/18 at 15:19; Status DC Magnesium Sulfate 50 ml @ 25 mls/hr 1X ONCE IV Last administered on 06/18/18at 16:54; Start 06/18/18 at 15:30; Stop 06/18/18 at 17:29; Status DC Amlodipine Besylate (Norvasc) 10 mg BID PO Last administered on 06/24/18 08:28; Start 06/18/18 at 21:00 Docusate Sodium (Colace) 100 mg DAILY PO Last administered on 06/24/18 08:29; Start 06/19/18 at 09:00 Acetaminophen/ Hydrocodone Bitart (Lortab 5/325) 1 tab PRN BID PRN PO MODERATE PAIN Last administered on 06/24/18 01:03; Start 06/18/18 at 16:45 Levothyroxine Sodium (Synthroid) 100 mcg DAILY06 PO Last administered on 06/24/18 05:48; Start 06/19/18 at 06:00 Metoclopramide HCl (Reglan) 5 mg PRN TID PRN PO NAUSEA; Start 06/18/18 at 16:45; Stop 06/20/18 at 09:35; Status DC Metoprolol Succinate (Toprol Xl) 100 mg DAILY PO Last administered on 06/24/18 08:28; Start 06/19/18 at 09:00 Trazodone HCl (Desyrel) 50 mg QHS PO Last administered on 06/23/18 20:31; Start 06/18/18 at 21:00 Zolpidem Tartrate (Ambien) 5 mg PRN QHS PRN PO INSOMNIA; Start 06/18/18 at 16:45; Stop 06/18/18 at 17:40; Status DC Insulin Glargine (Lantus) 20 units QHS SQ Last administered on 06/23/18 20:40; Start 06/18/18 at 21:00 Ferrous Sulfate (Feosol) 325 mg DAILYWBKFT PO Last administered on 06/24/18 08:28; Start 06/19/18 at 08:00 Non-Formulary Medication (Omeprazole ) 1 cap DAILY06 PO ; Start 06/19/18 at 06:00; Status UNV Pantoprazole Sodium (Protonix) 40 mg DAILYAC PO Last administered on 06/22/18 14:11; Start 06/19/18 at 07:30; Stop 06/22/18 at 16:29; Status DC Simvastatin (Zocor) 20 mg HS PO Last administered on 06/23/18 20:31; Start 06/18/18 at 21:00 Sucralfate (Carafate) 1 gm QIDACHS PO Last administered on 06/21/18 20:55; Start 06/18/18 at 17:00; Stop 06/22/18 at 16:29; Status DC Temazepam (Restoril) 7.5 mg PRN QHS PRN PO INSOMNIA Last administered on 20:56; Start 06/18/18 at 16:45 Acetaminophen (Tylenol) 500 mg PRN Q6HRS PRN PO MILD PAIN / TEMP Last administered on 06/22/18 01:47; Start 06/18/18 at 16:45 Morphine Sulfate (Morphine Sulfate) 2 mg PRN Q2HR PRN IV PAIN Last administered on 06/18/18 20:34; Start 06/18/18 at 16:45; Stop 06/18/18 at 20:52; Status DC Sodium Polystyrene Sulfonate (Kayexalate) 15 gm 1X ONCE PO Last administered on 06/18/18 17:54; Start 06/18/18 at 17:15; Stop 06/18/18 at 17:16; Status DC Heparin Sodium (Porcine) (Heparin Sodium) 5,000 unit Q8HRS SQ Last administered on 06/24/18 05:53; Start 06/18/18 at 17:15 Sodium Chloride 1,000 ml @ 75 mls/hr 1X ONCE IV Last administered on 06/18/18 19:07; Start 06/18/18 at 19:00; Stop 06/19/18 at 08:19; Status DC Lorazepam (Ativan) 2 mg 1X PRN PRN IV PRIOR TO VQ SCAN Last administered on 06/19/18 07:33; Start 06/19/18 at 06:00; Stop 06/19/18 at 21:00; Status DC Morphine Sulfate (Morphine Sulfate) 4 mg PRN Q2HR PRN IV PAIN Last administered on 06/19/18 09:23; Start 06/18/18 at 21:00; Stop 06/19/18 at 10:24; Status DC Morphine Sulfate (Morphine Sulfate) 2 mg PRN Q2HR PRN IV PAIN Last administered on 06/21/18 14:15; Start 06/19/18 at 10:30; Stop 06/21/18 at 16:46; Status DC Ondansetron HCl (Zofran) 4 mg PRN Q6HRS PRN IV NAUSEA/VOMITING, 1ST CHOICE Last administered on 06/23/18 05:57; Start 06/19/18 at 10:30 Ondansetron HCl (Zofran Odt) 4 mg PRN Q6HRS PRN PO NAUSEA/VOMITING Last administered on 06/21/18 08:47; Start 06/19/18 at 10:30 Prochlorperazine Edisylate (Compazine) 10 mg PRN Q6HRS PRN IV NAUSEA/VOMITING; Start 06/19/18 at 10:30; Status UNV Aspirin (Ecotrin) 81 mg DAILYWBKFT PO Last administered on 06/24/18 08:28; Start 06/19/18 at 12:00 Sodium Chloride 1,000 ml @ 75 mls/hr [id number] IV Last administered on 06/23/18 23:08; Start 06/19/18 at 11:45 Magnesium Sulfate 50 ml @ 25 mls/hr 1X ONCE IV Last administered on 4/26/19at 12:44; Start 06/19/18 at 13:00; Stop 06/19/18 at 14:59; Status DC Ibuprofen (Motrin) 400 mg 1X ONCE PO Last administered on 06/20/18at 09:35; Start 06/20/18 at 09:30; Stop 06/20/18 at 09:31; Status DC Metoclopramide HCl (Reglan) 10 mg TIDAC PO Last administered on 06/21/18at 17:11; Start 06/20/18 at 11:30; Stop 06/22/18 at 16:29; Status DC Prochlorperazine Edisylate (Compazine) 10 mg PRN Q6HRS PRN IV NAUSEA/VOMITING, 2ND CHOICE; Start 06/20/18 at 09:45; Status Cancel Promethazine HCl (Phenergan) 6.25 mg PRN Q6HRS PRN PO NAUSEA/VOMITING Last administered on 06/21/18at 09:47; Start 06/20/18 at 09:45; Stop 06/21/18 at 11:29; Status DC Potassium Chloride (Klor-Con) 40 meq 1X ONCE PO Last administered on 06/21/18at 09:46; Start 06/21/18 at 09:00; Stop 06/21/18 at 09:03; Status DC Potassium Chloride (Klor-Con) 20 meq DAILYWBKFT PO Last administered on 06/24/18at 08:29; Start 06/22/18 at 08:00 Promethazine HCl (Phenergan) 12.5 mg PRN Q6HRS PRN PO NAUSEA/VOMITING 2ND CHOICE Last administered on 06/22/18at 16:01; Start 06/21/18 at 11:30; Stop 06/22/18 at 16:29; Status DC Morphine Sulfate (Morphine Sulfate) 2 mg PRN Q4HRS PRN IV PAIN Last admin istered on 06/23/18at 08:44; Start 06/21/18 at 17:00; Stop 06/23/18 at 14:47; Status DC Magnesium Sulfate 50 ml @ 25 mls/hr 1X ONCE IV Last administered on 06/22/18at 14:16; Start 06/22/18 at 14:00; Stop 06/22/18 at 15:59; Status DC Potassium Chloride/Water 100 ml @ 100 mls/hr Q1H IV Last administered on 06/22/18at 21:29; Start 06/22/18 at 14:00; Stop 06/22/18 at 17:59; Status DC Metoclopramide HCl (Reglan Vial) 10 mg QIDACHS IV Last administered on 06/24/18 08:26; Start 06/22/18 at 16:30 Famotidine (Pepcid Vial) 20 mg BID IVP Last administered on 06/24/18at 08:26; Start 06/22/18 at 21:00 Polyethylene Glycol (miraLAX PACKET) 17 gm DAILY PO Last administered on 06/24/18 08:29; Start 06/23/18 at 10:00 Polyethylene Glycol (miraLAX PACKET) 17 gm PRN DAILY PRN PO CONSTIPATION; Start 06/23/18 at 09:30 Insulin Human Lispro (HumaLOG) 0-7 UNITS TIDWMEALS SQ Last administered on 06/24/18at 08:38; Start 06/23/18 at 18:30 Dextrose (Dextrose 50%-Water Syringe) 12.5 gm PRN Q15MIN PRN IV SEE COMMENTS; Start 06/23/18 at 18:15 Active Scripts Active Cipro (Ciprofloxacin Hcl) 250 Mg Tablet 1 Tab PO BID Levemir Flextouch (Insulin Detemir) 100 Unit/1 Ml Insuln.pen 20 Unit SQ QHS 30 Days Reported Metformin Hcl 1,000 Mg Tablet 1,000 Mg PO BIDWMEALS Ferralet 90 Dual-Iron Tablet (Iron, Carb & Gluc/Fa/B12/C/Dss) 1 Each Tablet 1 Tab PO DAILY Reglan (Metoclopramide Hcl) 10 Mg Tablet 1 Tab PO TID PRN Sucralfate 1 Gm Tablet 1 Tab PO QIDACHS Metoprolol Succinate ( Xl ) (Metoprolol Succinate) 100 Mg Tab.er.24h 1 Tab PO DAILY Simvastatin 20 Mg Tablet 1 Tab PO QHS [place] 5-325 Tablet (Acetaminophen/Hydrocodone Bitart) 1 Each Tablet 1 Tab PO BID PRN Levothyroxine Sodium 100 Mcg Tablet 1 Tab PO DAILY05 Docusate Sodium 100 Mg Capsule 1 Cap PO DAILY Trazodone Hcl 50 Mg Tablet 50 Mg PO QHS Omeprazole 40 Mg Capsule.dr 1 Cap PO DAILY06 Ibuprofen 800 Mg Tablet 800 Mg PO TID PRN Losartan-Hctz 100-12.5 Mg Tab (Losartan/Hydrochlorothiazide) 1 Each Tablet 1 Tab PO DAILY Ambien (Zolpidem Tartrate) 5 Mg Tablet 5 Mg PO HS PRN Protonix (Pantoprazole Sodium) 20 Mg Tablet.dr 40 Mg PO DAILYAC Amlodipine Besylate 10 Mg Tablet 10 Mg PO BID Vitals/I & O Vital Sign - Last 24 Hours 06/23/18 06/23/18 06/23/18 06/23/18 11:00 19:58 20:30 20:48 Temp 99.6 99.6 Pulse 87 97 Resp 18 16 B/P (MAP) 130/78 (95) 124/71 Pulse Ox 97 O2 Delivery Room Air Room Air Room Air 06/23/18 06/24/18 06/24/18 06/24/18 23:00 01:03 02:03 03:00 Temp 99.0 99.7 99.0 99.7 Pulse 98 103 Resp 18 16 18 18 B/P (MAP) 125/80 (95) 128/58 (81) Pulse Ox 96 96 O2 Delivery Room Air 06/24/18 06/24/18 06/24/18 07:00 08:28 08:28 Temp 99.2 99.2 Pulse 95 Resp 20 B/P (MAP) 149/95 (113) 148/95 148/95 Pulse Ox 95 Intake and Output 06/23/18 06/23/18 06/24/18 14:59 22:59 06:59 Intake Total 220 ml 120 ml Output Total 420 ml Balance 220 ml -300 ml Nutrition Consultation Dietary Evaluation: Recommendations by RD: Increase Calorie Intake Comments: REC liberalize diet to regular diet as toleraced to allow more food options/choices Expected Outcomes/Goals: PO intake to meet >75% est needs-not met, goal ongoing Malnutrition Findings: Food and Nutrition Intake (Mod: <75% est energy req 7days Weight Status: Overweight EDEN MONTOYA MD June 24, 2018 10:28
--- NOTE | 2018-06-24 10:33 | PDOC3 ---
Discharge Summary Date of Admission: Jun 18, 2018 Date of Discharge: June 24, 2018 Follow-Up: 1-2 days Admitting Diagnosis comment: DISCHARGE DX acute renal failure, CKD STAGE 3-4 Chronic abdominal pain H/o GERD and gastroparesis - ACTIVE NOW PAM/CKD, chronic anemia Hx Diverticulosis S/p cholecystectomy, h/o J tube placement and dislodgement H/o elevated lipase - not this time Mild-MOD cognitive impairment - CP, GERD (non cardiac) hyperkalemia 5.6 RESOLVED elevated d-dimer 15-VQ scan REVIEWED neg venous dopplers NArcotic dependence HYPOKALEMIA REPLACED HYPOMAGNESEMIA REPLACED D/C IV MORPHINE 06/23 PLAN 06/23. SYMPTOMS SLOW TO RESOLVE, D/C IV MORPHINE Borderline increased gastric retention at 3 hours a 06/24 TO SNF TODAY History of Present Illness History of Present Illness Now her issues are her chronic issues which is nausea emesis. RESOLVED emesis 06/20 NOW LOW K, MG . Never was interested in J tube, Plan: nothing by mouth post midnight for gastric emptying test SLIGHTLY DELAYED ADA T Discussed with RN SNF BED Acute abdomen series with chest, 3 views, 06/22/2018: HISTORY: Nausea, vomiting, abdominal pain The abdominal gas pattern is unremarkable without evidence of obstruction. No free air is seen in the abdomen. There is no evidence organomegaly. Left-sided pelvic calcifications are probably phleboliths. There is a moderate thoracolumbar scoliosis with moderate multilevel degenerative change. The heart is mildly enlarged. There is calcific plaquing and tortuosity of the thoracic aorta. There is an unchanged linear opacity in the left lower chest compatible with scarring. No new pulmonary abnormality is seen. There is no evidence of pleural fluid. IMPRESSION: No acute abdominal abnormality is detected. Electronically signed by: Mago Schaffer MD (06/23/2018 7:45 AM) [facility] DICTATED and SIGNED BY: MAGO SCHAFFER MD DATE: 06/23/18 0745 Vitals Vitals Vital Signs Date Time Temp Pulse Resp B/P (MAP) Pulse Ox O2 Delivery O2 Flow Rate FiO2 06/24/18 08:28 148/95 06/24/18 07:00 99.2 95 20 95 99.2 06/24/18 02:03 Room Air Physical Exam General: Alert, Oriented X3, Cooperative, No acute distress, mild distress Heart: Regular rate, Normal S1, Normal S2 Lungs: Clear, Other Abdomen: Normal bowel sounds, Soft, No tenderness, No hepatosplenomegaly Extremities: No cyanosis, No edema Skin: No breakdown, No significant lesion FINAL DIAGNOSIS Problems Medical Problems: (1) Anemia Status: Acute (2) CHF (congestive heart failure) Status: Acute (3) Elevated d-dimer Status: Acute (4) Hypercalcemia Status: Acute (5) Hyperkalemia Status: Acute (6) Hypomagnesemia Status: Acute (7) Renal insufficiency Status: Acute (8) Shortness of breath Status: Acute (9) Uncontrolled diabetes mellitus Status: Acute Brief Hospital Course Ms. Doherty is a 72 old [sex] who presented with [ACUTE RENAL FAILURE ] CONDITION AT DISCHARGE: Improved Discharge Medications Current Medications Famotidine (Pepcid Vial) 20 mg 1X ONCE IVP Last administered on 06/18/18at 14:36; Start 06/18/18 at 14:30; Stop 06/18/18 at 14:32; Status DC Albuterol Sulfate (Ventolin Neb Soln) 10 mg 1X ONCE CONT NEB Last administered on 06/18/18at 15:42; Start 06/18/18 at 15:15; Stop 06/18/18 at 15:19; Status DC Magnesium Sulfate 50 ml @ 25 mls/hr 1X ONCE IV Last administered on 06/18/18at 16:54; Start 06/18/18 at 15:30; Stop 06/18/18 at 17:29; Status DC Amlodipine Besylate (Norvasc) 10 mg BID PO Last administered on 06/24/18at 08:28; Start 06/18/18 at 21:00 Docusate Sodium (Colace) 100 mg DAILY PO Last administered on 06/24/18at 08:29; Start 06/19/18 at 09:00 Acetaminophen/ Hydrocodone Bitart (Lortab 5/325) 1 tab PRN BID PRN PO MODERATE PAIN Last administered on 06/24/18at 01:03; Start 06/18/18 at 16:45 Levothyroxine Sodium (Synthroid) 100 mcg DAILY06 PO Last administered on 06/24/18at 05:48; Start 06/19/18 at 06:00 Metoclopramide HCl (Reglan) 5 mg PRN TID PRN PO NAUSEA; Start 06/18/18 at 16:45; Stop 06/20/18 at 09:35; Status DC Metoprolol Succinate (Toprol Xl) 100 mg DAILY PO Last administered on 06/24/18 08:28; Start 06/19/18 at 09:00 Trazodone HCl (Desyrel) 50 mg QHS PO Last administered on 06/23/18 20:31; St art 06/18/18 at 21:00 Zolpidem Tartrate (Ambien) 5 mg PRN QHS PRN PO INSOMNIA; Start 06/18/18 at 16:45; Stop 06/18/18 at 17:40; Status DC Insulin Glargine (Lantus) 20 units QHS SQ Last administered on 06/23/18 20:40; Start 06/18/18 at 21:00 Ferrous Sulfate (Feosol) 325 mg DAILYWBKFT PO Last administered on 06/24/18 08:28; Start 06/19/18 at 08:00 Non-Formulary Medication (Omeprazole ) 1 cap DAILY06 PO ; Start 06/19/18 at 06:00; Status UNV Pantoprazole Sodium (Protonix) 40 mg DAILYAC PO Last administered on 06/22/18 14:11; Start 06/19/18 at 07:30; Stop 06/22/18 at 16:29; Status DC Simvastatin (Zocor) 20 mg HS PO Last administered on 06/23/18 20:31; Start 06/18/18 at 21:00 Sucralfate (Carafate) 1 gm QIDACHS PO Last administered on 06/21/18 20:55; S tart 06/18/18 at 17:00; Stop 06/22/18 at 16:29; Status DC Temazepam (Restoril) 7.5 mg PRN QHS PRN PO INSOMNIA Last administered on 06/21/18 20:56; Start 06/18/18 at 16:45 Acetaminophen (Tylenol) 500 mg PRN Q6HRS PRN PO MILD PAIN / TEMP Last administered on 06/22/18 01:47; Start 06/18/18 at 16:45 Morphine Sulfate (Morphine Sulfate) 2 mg PRN Q2HR PRN IV PAIN Last administered on 06/18/18 20:34; Start 06/18/18 at 16:45; Stop 06/18/18 at 20:52; Status DC Sodium Polystyrene Sulfonate (Kayexalate) 15 gm 1X ONCE PO Last administered on 06/18/18 17:54; Start 06/18/18 at 17:15; Stop 06/18/18 at 17:16; Status DC Heparin Sodium (Porcine) (Heparin Sodium) 5,000 unit Q8HRS SQ Last administered on 06/24/18 05:53; Start 06/18/18 at 17:15 Sodium Chloride 1,000 ml @ 75 mls/hr 1X ONCE IV Last administered on 06/18/18 19:07; Start 06/18/18 at 19:00; Stop 06/19/18 at 08:19; Status DC Lorazepam (Ativan) 2 mg 1X PRN PRN IV PRIOR TO VQ SCAN Last administered on 06/19/18 07:33; Start 06/19/18 at 06:00; Stop 06/19/18 at 21:00; Status DC Morphine Sulfate (Morphine Sulfate) 4 mg PRN Q2HR PRN IV PAIN Last administered on 06/19/18 09:23; Start 06/18/18 at 21:00; Stop 06/19/18 at 10:24; Status DC Morphine Sulfate (Morphine Sulfate) 2 mg PRN Q2HR PRN IV PAIN Last administered on 06/21/18 14:15; Start 06/19/18 at 10:30; Stop 06/21/18 at 16:46; Status DC Ondansetron HCl (Zofran) 4 mg PRN Q6HRS PRN IV NAUSEA/VOMITING, 1ST CHOICE Last administered on 06/23/18 05:57; Start 06/19/18 at 10:30 Ondansetron HCl (Zofran Odt) 4 mg PRN Q6HRS PRN PO NAUSEA/VOMITING Last administered on 06/21/18 08:47; Start 06/19/18 at 10:30 Prochlorperazine Edisylate (Compazine) 10 mg PRN Q6HRS PRN IV NAUSEA/VOMITING; Start 06/19/18 at 10:30; Status UNV Aspirin (Ecotrin) 81 mg DAILYWBKFT PO Last administered on 06/24/18 08:28; Start 06/19/18 at 12:00 Sodium Chloride 1,000 ml @ 75 mls/hr [id number] IV Last administered on 06/23/18 23:08; Start 06/19/18 at 11:45 Magnesium Sulfate 50 ml @ 25 mls/hr 1X ONCE IV Last administered on 06/19/18 12:44; Start 06/19/18 at 13:00; Stop 06/19/18 at 14:59; Status DC Ibuprofen (Motrin) 400 mg 1X ONCE PO Last administered on 06/20/18 09:35; Start 06/20/18 at 09:30; Stop 06/20/18 at 09:31; Status DC Metoclopramide HCl (Reglan) 10 mg TIDAC PO Last administered on 06/21/18 17:11; Start 06/20/18 at 11:30; Stop 06/22/18 at 16:29; Status DC Prochlorperazine Edisylate (Compazine) 10 mg PRN Q6HRS PRN IV NAUSEA/VOMITING, 2ND CHOICE; Start 06/20/18 at 09:45; Status Cancel Promethazine HCl (Phenergan) 6.25 mg PRN Q6HRS PRN PO NAUSEA/VOMITING Last administered on 06/21/18 09:47; Start 06/20/18 at 09:45; Stop 06/21/18 at 11:29; Status DC Potassium Chloride (Klor-Con) 40 meq 1X ONCE PO Last administered on 06/21/18 09:46; Start 06/21/18 at 09:00; Stop 06/21/18 at 09:03; Status DC Potassium Chloride (Klor-Con) 20 meq DAILYWBKFT PO Last administered on 06/24/18 08:29; Start 06/22/18 at 08:00 Promethazine HCl (Phenergan) 12.5 mg PRN Q6HRS PRN PO NAUSEA/VOMITING 2ND CHOICE Last administered on 06/22/18 16:01; Start 06/21/18 at 11:30; Stop 06/22/18 at 16:29; Status DC Morphine Sulfate (Morphine Sulfate) 2 mg PRN Q4HRS PRN IV PAIN Last administered on 06/23/18 08:44; Start 06/21/18 at 17:00; Stop 06/23/18 at 14:47; Status DC Magnesium Sulfate 50 ml @ 25 mls/hr 1X ONCE IV Last administered on 06/22/18at 14:16; Start 06/22/18 at 14:00; Stop 06/22/18 at 15:59; Status DC Potassium Chloride/Water 100 ml @ 100 mls/hr Q1H IV Last administered on 06/22/18at 21:29; Start 06/22/18 at 14:00; Stop 06/22/18 at 17:59; Status DC Metoclopramide HCl (Reglan Vial) 10 mg QIDACHS IV Last administered on 06/24/18 08:26; Start 06/22/18 at 16:30 Famotidine (Pepcid Vial) 20 mg BID IVP Last administered on 06/24/18at 08:26; Start 06/22/18 at 21:00 Polyethylene Glycol (miraLAX PACKET) 17 gm DAILY PO Last administered on 06/24/18at 08:29; Start 06/23/18 at 10:00 Polyethylene Glycol (miraLAX PACKET) 17 gm PRN DAILY PRN PO CONSTIPATION; Start 06/23/18 at 09:30 Insulin Human Lispro (HumaLOG) 0-7 UNITS TIDWMEALS SQ Last administered on 06/24/18at 08:38; Start 06/23/18 at 18:30 Dextrose (Dextrose 50%-Water Syringe) 12.5 gm PRN Q15MIN PRN IV SEE COMMENTS; Start 06/23/18 at 18:15 Active Scripts Active Cipro (Ciprofloxacin Hcl) 250 Mg Tablet 1 Tab PO BID Levemir Flextouch (Insulin Detemir) 100 Unit/1 Ml Insuln.pen 20 Unit SQ QHS 30 Days Reported Metformin Hcl 1,000 Mg Tablet 1,000 Mg PO BIDWMEALS Ferralet 90 Dual-Iron Tablet (Iron, Carb & Gluc/Fa/B12/C/Dss) 1 Each Tablet 1 Tab PO DAILY Reglan (Metoclopramide Hcl) 10 Mg Tablet 1 Tab PO TID PRN Sucralfate 1 Gm Tablet 1 Tab PO QIDACHS Metoprolol Succinate ( Xl ) (Metoprolol Succinate) 100 Mg Tab.er.24h 1 Tab PO DAILY Simvastatin 20 Mg Tablet 1 Tab PO QHS Badger 5-325 Tablet (Acetaminophen/Hydrocodone Bitart) 1 Each Tablet 1 Tab PO BID PRN Levothyroxine Sodium 100 Mcg Tablet 1 Tab PO DAILY05 Docusate Sodium 100 Mg Capsule 1 Cap PO DAILY Trazodone Hcl 50 Mg Tablet 50 Mg PO QHS Omeprazole 40 Mg Capsule.dr 1 Cap PO DAILY06 Ibuprofen 800 Mg Tablet 800 Mg PO TID PRN Losartan-Hctz 100-12.5 Mg Tab (Losartan/Hydrochlorothiazide) 1 Each Tablet 1 Tab PO DAILY Ambien (Zolpidem Tartrate) 5 Mg Tablet 5 Mg PO HS PRN Protonix (Pantoprazole Sodium) 20 Mg Tablet.dr 40 Mg PO DAILYAC Amlodipine Besylate 10 Mg Tablet 10 Mg PO BID Vital Signs Vital Signs Date Time Temp Pulse Resp B/P (MAP) Pulse Ox O2 Delivery O2 Flow Rate FiO2 06/24/18 08:28 148/95 06/24/18 07:00 99.2 95 20 95 99.2 06/24/18 02:03 Room Air Labs Laboratory Tests Test 06/22/18 11:14 06/22/18 16:07 06/22/18 20:12 06/23/18 04:35 Glucose (Fingerstick) 188 mg/dL (70-99) 140 mg/dL (70-99) 223 mg/dL (70-99) Sodium Level 135 mmol/L (136-145) Potassium Level 3.8 mmol/L (3.5-5.1) Chloride Level 102 mmol/L (98-107) Carbon Dioxide Level 17 mmol/L (21-32) Anion Gap 16 (6-14) Blood Urea Nitrogen 6 mg/dL (7-20) Creatinine 1.2 mg/dL (0.6-1.0) Estimated GFR (Cockcroft-Gault) 53.7 BUN/Creatinine Ratio 5 (6-20) Glucose Level 241 mg/dL (70-99) Calcium Level 9.7 mg/dL (8.5-10.1) Total Bilirubin 0.4 mg/dL (0.2-1.0) Aspartate Amino Transf (AST/SGOT) 22 U/L (15-37) Alanine Aminotransferase (ALT/SGPT) 9 U/L (14-59) Alkaline Phosphatase 42 U/L (46-116) Total Protein 7.5 g/dL (6.4-8.2) Albumin 3.7 g/dL (3.4-5.0) Albumin/Globulin Ratio 1.0 (1.0-1.7) Test 06/23/18 06:10 06/23/18 07:38 06/23/18 12:00 06/23/18 16:19 White Blood Count 11.9 x10^3/uL (4.0-11.0) Red Blood Count 3.49 x10^6/uL (3.50-5.40) Hemoglobin 10.7 g/dL (12.0-15.5) Hematocrit 31.9 % (36.0-47.0) Mean Corpuscular Volume 91 fL (79-100) Mean Corpuscular Hemoglobin 31 pg (25-35) Mean Corpuscular Hemoglobin Concent 34 g/dL (31-37) Red Cell Distribution Width 13.8 % (11.5-14.5) Platelet Count 219 x10^3/uL (140-400) Neutrophils (%) (Auto) 80 % (31-73) Lymphocytes (%) (Auto) 15 % (24-48) Monocytes (%) (Auto) 5 % (0-9) Eosinophils (%) (Auto) 0 % (0-3) Basophils (%) (Auto) 1 % (0-3) Neutrophils # (Auto) 9.4 x10^3uL (1.8-7.7) Lymphocytes # (Auto) 1.7 x10^3/uL (1.0-4.8) Monocytes # (Auto) 0.5 x10^3/uL (0.0-1.1) Eosinophils # (Auto) 0.0 x10^3/uL (0.0-0.7) Basophils # (Auto) 0.2 x10^3/uL (0.0-0.2) Glucose (Fingerstick) 203 mg/dL (70-99) 216 mg/dL (70-99) 230 mg/dL (70-99) Test 06/23/18 20:57 06/24/18 08:07 Glucose (Fingerstick) 177 mg/dL (70-99) 181 mg/dL (70-99) Laboratory Tests Test 06/23/18 12:00 06/23/18 16:19 06/23/18 20:57 06/24/18 08:07 Glucose (Fingerstick) 216 mg/dL (70-99) 230 mg/dL (70-99) 177 mg/dL (70-99) 181 mg/dL (70-99) Allergies Allergies Coded Allergies Type Severity Reaction Last Updated Verified Sulfa (Sulfonamide Antibiotics) Allergy Intermediate 04/19/18 Yes prochlorperazine Adverse Reaction Intermediate DIZZY 04/19/18 Yes Disposition/Orders: Other (TO SNF BED) Patient Instructions D/C PLANNING 36 MIN EDEN MONTOYA MD June 24, 2018 10:33
[2018-06-24] MEDS ORDERED: POLY17PO28 PO (10:36)
[2018-06-24] MEDS ORDERED: POTA20TA4 PO (10:36)
--- NOTE | 2018-06-24 10:37 | SNU/HH DC ---
DISCHARGE ORDERS DISCHARGE INFORMATION: FINAL DIAGNOSIS Problems Medical Problems: (1) Anemia Status: Acute (2) CHF (congestive heart failure) Status: Acute (3) Elevated d-dimer Status: Acute (4) Hypercalcemia Status: Acute (5) Hyperkalemia Status: Acute (6) Hypomagnesemia Status: Acute (7) Renal insufficiency Status: Acute (8) Shortness of breath Status: Acute (9) Uncontrolled diabetes mellitus Status: Acute CONDITION ON DISCHARGE: Stable CODE STATUS: Code Status: Full SHELTER: SNF STAY <30 DAYS: Yes HOSPICE: HOSPICE: No HOSPICE EVAL & TREAT: No LTAC: ADMIT TO LTAC: No POST DISCHARGE ORDERS: ACTIVITY ORDERS: Activity as tolerated WEIGHT BEARING STATUS: Full weight bearing DIET AFTER DISCHARGE: Cardiac WOUND/INCISION CARE: No wound care needed CHECKS AFTER DISCHARGE: CHECKS AFTER DISCHARGE: Check blood press - daily, Check blood sugar, ac/hs, Check your Temp as needed TREATMENT/EQUIPMENT ORDERS: ADAPTIVE EQUIPMENT NEEDED: None Physical Therapy For: Evalulation/Treatment Occupational Therapy For: Evaluation/Treatment Speech Language Pathology For: Evaluation/Treatment DISCHARGE MEDICATIONS: Home Meds Active Scripts Polyethylene Glycol 3350 (POLYETHYLENE GLYCOL 3350) 17 Gm Powd.pack, 17 GM PO DAILY for CONSTIPATION for 30 Days, #30 PKT Prov:EDEN MONTOYA MD 06/24/18 Potassium Chloride (KLOR-CON M20) 20 Meq Tab.er.prt, 20 MEQ PO DAILYWBKFT for SUPPLEMENT for 10 Days, #10 TAB.SR Prov:EDEN MONTOYA MD 06/24/18 Insulin Detemir (Levemir Flextouch) 100 Unit/1 Ml Insuln.pen, 20 UNIT SQ QHS for 30 Days, SYR Prov:MARIBEL MARIEE MD 04/28/17 Reported Medications Iron, Carb & Gluc/Fa/B12/C/Dss (FERRALET 90 DUAL-IRON TABLET) 1 Each Tablet, 1 TAB PO DAILY, #90 TAB 3 Refills 10/13/17 Metoclopramide Hcl (REGLAN) 10 Mg Tablet, 1 TAB PO TID PRN for NAUSEA, #90 TAB 10/13/17 Sucralfate (SUCRALFATE) 1 Gm Tablet, 1 TAB PO QIDACHS, #120 TAB 3 Refills 10/13/17 Metoprolol Succinate (METOPROLOL SUCCINATE ( XL )) 100 Mg Tab.er.24h, 1 TAB PO DAILY, #30 TAB 5 Refills 10/13/17 Simvastatin (SIMVASTATIN) 20 Mg Tablet, 1 TAB PO QHS, #30 TAB 5 Refills 10/13/17 Hydrocodone/Apap 5-325 (NORCO 5-325 TABLET) 1 Each Tablet, 1 TAB PO BID PRN for PAIN, #60 TAB 10/13/17 Levothyroxine Sodium (LEVOTHYROXINE SODIUM) 100 Mcg Tablet, 1 TAB PO DAILY05, #30 TAB 5 Refills 10/13/17 Docusate Sodium (DOCUSATE SODIUM) 100 Mg Capsule, 1 CAP PO DAILY, #30 CAP 10/13/17 Trazodone Hcl (TRAZODONE HCL) 50 Mg Tablet, 50 MG PO QHS, TAB 10/13/17 Omeprazole (OMEPRAZOLE) 40 Mg Capsule.dr, 1 CAP PO DAILY06, #30 CAP 3 Refills 10/13/17 Zolpidem Tartrate (AMBIEN) 5 Mg Tablet, 5 MG PO HS PRN for INSOMNIA, TAB 0 Refills 05/25/17 Pantoprazole Sodium (PROTONIX) 20 Mg Tablet.dr, 40 MG PO DAILYAC, TAB 04/07/17 Amlodipine Besylate (AMLODIPINE BESYLATE) 10 Mg Tablet, 10 MG PO BID, #60 07/31/16 Discontinued Reported Medications Metformin Hcl (METFORMIN HCL) 1,000 Mg Tablet, 1000 MG PO BIDWMEALS, TAB 10/13/17 Ibuprofen (IBUPROFEN) 800 Mg Tablet, 800 MG PO TID PRN for INFLAMMATION, TAB 10/13/17 Losartan/Hydrochlorothiazide (LOSARTAN-HCTZ 100-12.5 MG TAB) 1 Each Tablet, 1 TAB PO DAILY, #30 TAB 5 Refills 10/13/17 Discontinued Scripts Ciprofloxacin Hcl (CIPRO) 250 Mg Tablet, 1 TAB PO BID for uti, #6 TAB Prov:LINDA CENTENO MD 04/24/18 EDEN MONTOYA MD June 24, 2018 10:37
[2018-06-24 11:00] VITALS: BP 154/103
[2018-06-24] MEDS: IV NORMAL SALINE 1000ML BAG 1,000 ML IV SCH (11:45)
--- NOTE | 2018-06-24 12:03 | PDOC ---
Subjective: Subjective: Says not doing too good. Vomited about an hour ago, says the doctor was going to give her something for pain. Hasn't stooled. Objective: Objective: Has discharge orders. Vital Signs: Vital Signs Date Time Temp Pulse Resp B/P (MAP) Pulse Ox O2 Delivery O2 Flow Rate FiO2 06/24/18 11:00 98.8 96 20 154/103 (120) 95 98.8 06/24/18 08:00 Room Air Labs: Laboratory Tests Test 06/23/18 12:00 06/23/18 16:19 06/23/18 20:57 06/24/18 08:07 Glucose (Fingerstick) 216 mg/dL 230 mg/dL 177 mg/dL 181 mg/dL Test 06/24/18 11:53 Glucose (Fingerstick) 171 mg/dL PE: GEN: NAD LUNGS: CTAB HEART: RRR ABD: BS+, soft, doesn't react much to palpation but reports tenderness throughout abdomen when asked NEURO/PSYCH: ?confused A/P: Recurrent n/v, chronic pain Leukocytosis -- Going to try full liquids for lunch, but apparently vomited earlier and has ongoing pain. Remains on IV Reglan and Pepcid. HARLEY GOEL June 24, 2018 12:03
[2018-06-24] MEDS ORDERED: BISACODYL 5 MG TABLET.DR. PO ONE (12:15)
--- NOTE | 2018-06-24 13:36 | NUR ---
DANNY following pt. SW faxed orders to [facility] and pt will transport via [facility] arranged transport at 1600. Pt's choice and rights forms verbally consented by pt and copies on chart. Pt reported she will notify her daughter. Packet on chart. FRANKLIN ARIAS.
[2018-06-24 15:00] VITALS: BP 132/90
--- NOTE | 2018-06-24 16:28 | NUR ---
Patient discharged from this facility at 1630. Patient was escorted off the unit by the transportation staff from [facility] via wheelchair. Patient left the unit with her belongs and discharge information. Prior to her leaving the discharge information was discussed with the patient and she had not questions or concerns regarding the information provided to her.
--- NOTE | 2018-07-01 12:47 | RAD ---
Ventilation/perfusion lung scan, 06/18/2018: History: Elevated d-dimer Due to PACS issues, this study has just now been presented for review. The ventilation study was performed utilizing 17 mCi of xenon-133. Activity in the lungs is heterogeneous. There is minimal retention of activity in the left lung on the washout phase. Perfusion imaging was performed utilizing 6.6 mCi of technetium 99m MAA. A similar pattern of activity is present in the lungs. No segmental or definite unmatched perfusion defect is seen. IMPRESSION: The probability of pulmonary emboli is low.
== END 2018-06-24 16:30 | DRG 640 ==
LOC: ER 12:16 → 2 SOUTH 15:04 → 2 NORTH 16:09 → 5 NORTH 06-21 12:59
PROVIDERS: ADMIT Internal Medicine; ATTEND Internal Medicine
DX: E87.5 Hyperkalemia (principal); N17.0 Acute kidney failure with tubular necrosis; I13.0 Hypertensive heart and chronic kidney disease with heart failure and stage 1 through stage 4 chronic kidney disease, or unspecified chronic kidney disease; F11.20 Opioid dependence, uncomplicated; I48.91 Unspecified atrial fibrillation; E83.42 Hypomagnesemia; E83.52 Hypercalcemia; E78.5 Hyperlipidemia, unspecified; I50.9 Heart failure, unspecified; K21.9 Gastro-esophageal reflux disease without esophagitis; E78.00 Pure hypercholesterolemia, unspecified; Z96.652 Presence of left artificial knee joint; G89.29 Other chronic pain; D64.9 Anemia, unspecified; E11.22 Type 2 diabetes mellitus with diabetic chronic kidney disease; K57.90 Diverticulosis of intestine, part unspecified, without perforation or abscess without bleeding; F03.90 Unspecified dementia, unspecified severity, without behavioral disturbance, psychotic disturbance, mood disturbance, and anxiety; M19.90 Unspecified osteoarthritis, unspecified site; E86.0 Dehydration; K31.84 Gastroparesis; E11.43 Type 2 diabetes mellitus with diabetic autonomic (poly)neuropathy; E87.6 Hypokalemia; E89.0 Postprocedural hypothyroidism; F40.240 Claustrophobia; I87.8 Other specified disorders of veins; M41.9 Scoliosis, unspecified; Z90.49 Acquired absence of other specified parts of digestive tract; Z90.710 Acquired absence of both cervix and uterus; Z88.2 Allergy status to sulfonamides; Z88.8 Allergy status to other drugs, medicaments and biological substances; Z86.711 Personal history of pulmonary embolism; Z83.3 Family history of diabetes mellitus; Z82.49 Family history of ischemic heart disease and other diseases of the circulatory system; N18.3 Chronic kidney disease, stage 3 (moderate)
CPT/HCPCS: 36415; 71046; 74022; 78264; 78582; 80048; 80053; 80061; 82550; 82962; 83690; 83735; 83880; 84443; 84484; 85025; 85379; 85610; 93005; 93970; 94640; 96374; 99291; A9540; A9541; A9558; J1644; J1815; J2060; J2270; J2405; J2765; J3475; J3480; J3490; J7030; J7613; J8597; Q0162; Q0169; 97116; 97535

== ENCOUNTER 2020-03-27 17:08 | Emergency (ER) | payer MEDICARE ==
[~2020-03-27] VITALS: Ht 165.1 cm; Wt 102.2 kg
[~2020-03-27 17:08] MED LIST changes: +AMLO-187 PO; -AMLO10TA8 PO; -GLIM4TAB2 PO; +GLIM4TAB8 PO; -LEVO75TA PO; +LEVO75TA90 PO; +MECL-75 PO; -MECL25TA3 PO; -OMEP40CA5 PO; +OMEP40CA7 PO; -PANT40TA3 PO; -PANT40TA5 PO; +PANT40TA77 PO; +POLY17PO52 PO; +POTA20TA4 PO; -POTA20TA82 PO; +SIMV20TA18 PO; -SIMV20TA3 PO
[2020-03-27] MEDS ORDERED: ONDANSETRON PF 4 MG/2 ML VIAL. IVP ONE (18:30)
[2020-03-27 18:31] LABS: BASO # 0.1 x10^3/uL (0.0-0.2); BASO % 1 % (0-3); EOS # 0.1 x10^3/uL (0.0-0.7); EOS % 1 % (0-3); HEMATOCRIT 31.8 % (36.0-47.0); HEMOGLOBIN 10.8 g/dL (12.0-15.5); LYMPH # 3.2 x10^3/uL (1.0-4.8); LYMPH % 33 % (24-48); MEAN CORPUSCULAR HEMOGLOBIN 29 pg (25-35); MEAN CORPUSCULAR HGB CONC 34 g/dL (31-37); MEAN CORPUSCULAR VOLUME 85 fL (79-100); MONO % 11 % (0-9); NEUT # 5.3 x10^3/uL (1.8-7.7); NEUT % 54 % (31-73); PLATELET COUNT 293 x10^3/uL (140-400); RED BLOOD COUNT 3.73 x10^6/uL (3.50-5.40); RED CELL DISTRIBUTION WIDTH 16.4 % (11.5-14.5); WHITE BLOOD COUNT 9.7 x10^3/uL (4.0-11.0)
[2020-03-27 18:34] LABS: BILIRUBIN,URINE NEGATIVE (NEG); CLARITY,URINE CLOUDY; COLOR,URINE YELLOW; NITRITE,URINE NEGATIVE (NEG); PH,URINE 7.5 (<5.0-8.0); PROTEIN,URINE NEGATIVE (NEG-TRACE)
[2020-03-27 18:47] LABS: AMMONIUM BIURATE PRESENT /HPF; AMORPHOUS SEDIMENT,UR PRESENT /HPF; BACTERIA,URINE FEW /HPF (0-FEW); RBC,URINE 20-40 /HPF (0-2)
[2020-03-27] MEDS ORDERED: IV NORMAL SALINE 1000ML BAG 1,000 ML IV ONE (19:15)
[2020-03-27 19:30] LABS: ALBUMIN 2.7 g/dL (3.4-5.0); ALBUMIN/GLOBULIN RATIO 0.6 (1.0-1.7); CALCIUM 9.4 mg/dL (8.5-10.1); CREATININE 1.1 mg/dL (0.6-1.0); GFR 59.1; TOTAL BILIRUBIN 0.5 mg/dL (0.2-1.0); TOTAL PROTEIN 6.9 g/dL (6.4-8.2)
[2020-03-27 19:34] LABS: POTASSIUM 2.8 mmol/L (3.5-5.1)
[2020-03-27] MEDS ORDERED: IOHEXOL 300 MG/ML 100ML VIAL. IV ONE (20:15)
[2020-03-27 20:30] VITALS: BP 162/83
[2020-03-27] MEDS ORDERED: cefTRIAXone IV Push 1 GM VIAL. IVP ONE (20:30)
[2020-03-27] MEDS ORDERED: POTASSIUM CHLORIDE 20 MEQ TABLET.ER. PO ONE (20:30)
--- NOTE | 2020-03-27 20:31 | RAD ---
Exam: CT of abdomen and pelvis with contrast INDICATION: Right lower quadrant pain TECHNIQUE: Sequential axial images through the abdomen and pelvis obtained following the administrati on of 60 mL of Omni 300 IV contrast. Sagittal and coronal reformatted images were reconstructed from the axial data and reviewed. Comparisons: 12/16/2019 FINDINGS: Heart size is normal. No pericardial effusion. Visualized lung bases are clear. No pleural effusion. Liver, spleen, pancreas, and adrenals are unremarkable. Gallbladder is absent. No perinephric inflammation or hydronephrosis. Evaluation for ureteral calculi are not identified. Bladder is partially distended and appears thin-walled. Uterus is absent. No abnormal adnexal mass. Diverticulosis noted at the sigmoid colon. There is mild wall thickening at the sigmoid colon. Remain brennan of the large and small bowel are unremarkable. Appendix is normal. No free intra-abdominal air or fluid. No obstruction. Abdominal aorta has a normal course and caliber. Abdominal vasculature is patent. No enlarged abdominal lymph nodes are identified. No suspicious osseous lesions or acute fractures. IMPRESSION: Mild wall thickening at the sigmoid colon may relate to colitis. This is in an area of diverticulosis and diverticulitis is possible. Exposure: One or more of the following in the visualized dose reduction techniques were utilized for this examination: 1. Automated exposure control 2. Adjustment of the MA and/or KV according to patient size 3. Use of iterative of reconstructive technique Electronically signed by: Debby Murrell MD (03/27/2020 8:29 PM) [facility]
--- NOTE | 2020-03-27 20:32 | RAD ---
CT NECK SOFT TISSUE WITH IV CONTRAST DATE: 03/27/2020 7:48 PM INDICATION: RT SIDED NECK NUMBNESS, ORAL SOFT PALATE MASS TECHNIQUE: Axial computed tomography of the neck with intravenous contrast according to the standard neck protocol. 60 cc of Omnipaque 300 was administered intravenously. One or more of the following do se reduction techniques were utilized: Automated exposure control (AEC), Adjustment of mA and/or kV according to patient size, Use of iterative reconstruction technique such as ASiR, CT scan done accor ding to ALARA and image gently/image wisely COMPARISON: None. 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 Scattered subcentimeter lymph nodes are seen in the neck. None are pathologically enlarged or abnorma lly enhancing. The parotid and submandibular glands are normal. Atrophic thyroid. The muscles of the neck are normal. Vessels of the neck demonstrate normal course, caliber, and enhancement. The visuali zed aerodigestive tract is normal. The visualized posterior fossa and brain is unremarkable. The visualized orbits and paranasal sinuses are normal. Moderate to severe multilevel degenerative disc desiccation. Multilevel spinal canal stenosis seconda ry to disc protrusions and marginal osteophytes, worst and severe at C5-6. Multilevel moderate to sev ere neural foraminal narrowing secondary to uncovertebral and facet arthrosis. The visualized lung apices are clear. IMPRESSION: 1. 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 Soft tissue fullness about t he apex is not well characterized by CT. Correlate with direct visualization. 2. No cervical lymphadenopathy. 3. Advanced cervical spondylosis with severe spinal canal stenosis at C5-6. Electronically signed by: Baldemar Pardo MD (03/27/2020 8:29 PM) [facility]
--- NOTE | 2020-03-27 20:49 | PHYS DOC ---
Past Medical History Past Medical History: Diabetes-Type II, GERD, High Cholesterol, Hypertension, Hypothyroid, Other Additional Past Medical Histor: Hernia,gastroporesis Past Surgical History: Cholecystectomy, Hysterectomy, Knee Replacement, Other Additional Past Surgical Histo: EGD,Cataract removed BILAT EYES, GTUBE PLACEMENT AND D/C Smoking Status: Never Smoker Alcohol Use: None Drug Use: None General Adult EDM: Chief Complaint: NAUSEA/VOMITING/DIARRHA HPI: HPI: Patient is a 74 year old female presents emergency department complaining of nausea vomiting and diarrhea for the past 5 days. Patient states she has right lower quadrant pain for the past 5 days as well. Patient states her pain has been a constant 5/10 on a 1-10 pain scale. Patient also states that she has right-sided neck numbness that has been going on for 5 days as well. Patient reports she has thrown up once today. Patient states that she had one bout of diarrhea early this morning. Patient denies any burning with urination, denies increased frequency with urination, denies urinary pressure. Patient denies vaginal discharge or vaginal bleeding. Patient denies any trauma to her head or neck. This noticed that the right side of her neck near her jaw was numb to touch. Patient denies any recent fever or chills, denies chest pain, shortness of breath, chest congestion or nasal congestion. Patient denies rashes of her skin, denies swelling of her extremities. Patient denies any other aches or pains, patient denies any other physical complaints or physical concerns. Patient states she lives at home with her daughter. Review of Systems: Review of Systems: 14 body systems of review of systems have been reviewed. See HPI for pertinent positives and negative responses, otherwise all other systems are negative, nonpertinent or noncontributory. Heart Score: Risk Factors: Risk Factors: DM, Current or recent (<one month) smoker, HTN, HLP, family history of CAD, obesity. Risk Scores: Score 0 - 3: 2.5% MACE over next 6 weeks - Discharge Home Score 4 - 6: 20.3% MACE over next 6 weeks - Admit for Clinical Observation Score 7 - 10: 72.7% MACE over next 6 weeks - Early Invasive Strategies Current Medications: Current Medications Medications (Trade) Dose Ordered Sig/Alo Start Time Stop Time Status Last Admin Dose Admin Iohexol (Omnipaque 300 Mg/ml) 60 ml 1X ONCE 03/27/20 20:15 03/27/20 20:16 UNV Ondansetron HCl (Zofran) 4 mg 1X ONCE 03/27/20 18:30 03/27/20 18:37 DC 03/27/20 18:45 4 MG Sodium Chloride 1,000 ml @ 1,000 mls/hr 1X ONCE 03/27/20 19:15 03/27/20 20:14 DC 03/27/20 19:19 1,000 MLS/HR Allergies: Allergies: Allergies Coded Allergies Type Severity Reaction Last Updated Verified Sulfa (Sulfonamide Antibiotics) Allergy Intermediate 04/19/18 Yes prochlorperazine Adverse Reaction Intermediate DIZZY 04/19/18 Yes Physical Exam: PE: Constitutional: Well developed, well nourished, no acute distress, non-toxic appearance. HENT: Normocephalic, atraumatic, bilateral external ears normal, oropharynx moist, no oral exudates, nose normal. Oropharynx moist, pink, no tonsillar edema, no peritonsillar abscess, no tongue swelling, no postnasal drip appreciated. There is a 3 cm mass from the palate cleft extending into the uvular area, no erythema of the mass appreciated, pink in color, convoluted and appearance with cobblestoning appearance, no marked discoloration, no evident borders appreciated. Feels hard and nonfluctuant when elevated, does not elicit gag reflex when palpated, patient does not feel mass in mouth or back of throat, does not affect swallowing or breathing. Eyes: PERRLA, EOMI, conjunctiva normal, no discharge. Neck: Normal range of motion, no tenderness, supple, no stridor. Mass to right side of neck near mandibular angle, patient's complaint of numbness, unable to discern sharp noxious stimuli, unable to discern 1 from 2 pinpoint noxious stimuli or pressure with paperclip apparatus used pinpoints 2-1/2 inches apart. Patient regains sensation at lobe of ear and above, midline lateral right side of neck and dorsal, 3 mm ventral from right side central neck to center of neck. Area of numbness measures 3 cm x 10 cm. Cardiovascular:Heart rate regular rhythm, no murmur, heart sounds S1-S2 to auscultation. Lungs & Thorax: Bilateral breath sounds clear to auscultation lung fuentes. Abdomen: Bowel sounds normal, soft, no masses, no pulsatile masses. Tenderness to palpation right lower quadrant, positive McBurney's point tenderness, negative psoas sign, negative Cheema sign, negative rebound tenderness. Skin: Warm, dry, no erythema, no rash. Back: No tenderness, no CVA tenderness. Extremities: No tenderness, no cyanosis, no clubbing, ROM intact, no edema. Neurologic: Alert and oriented X 3, normal motor function, normal sensory function, no focal deficits noted. Psychologic: Affect normal, judgement normal, mood normal. Current Patient Data: Labs: Laboratory Tests Test 03/27/20 17:39 03/27/20 18:15 Urine Collection Type Unknown Urine Color Yellow Urine Clarity Cloudy Urine pH 7.5 (<5.0-8.0) Urine Specific Paloma 1.010 (1.000-1.030) Urine Protein Negative mg/dL (NEG-TRACE) Urine Glucose (UA) Negative mg/dL (NEG) Urine Ketones (Stick) Negative mg/dL (NEG) Urine Blood Moderate (NEG) Urine Nitrite Negative (NEG) Urine Bilirubin Negative (NEG) Urine Urobilinogen Dipstick 1.0 mg/dL (0.2 mg/dL) Urine Leukocyte Esterase Trace (NEG) Urine RBC 20-40 /HPF (0-2) Urine WBC 5-10 /HPF (0-4) Urine Squamous Epithelial Cells Few /LPF Urine Ammonium Biurate Crystals Present /HPF Urine Amorphous Sediment Present /HPF Urine Bacteria Few /HPF (0-FEW) Urine Mucus Mod /LPF White Blood Count 9.7 x10^3/uL (4.0-11.0) Red Blood Count 3.73 x10^6/uL (3.50-5.40) Hemoglobin 10.8 g/dL (12.0-15.5) L Hematocrit 31.8 % (36.0-47.0) L Mean Corpuscular Volume 85 fL (79-100) Mean Corpuscular Hemoglobin 29 pg (25-35) Mean Corpuscular Hemoglobin Concent 34 g/dL (31-37) Red Cell Distribution Width 16.4 % (11.5-14.5) H Platelet Count 293 x10^3/uL (140-400) Neutrophils (%) (Auto) 54 % (31-73) Lymphocytes (%) (Auto) 33 % (24-48) Monocytes (%) (Auto) 11 % (0-9) H Eosinophils (%) (Auto) 1 % (0-3) Basophils (%) (Auto) 1 % (0-3) Neutrophils # (Auto) 5.3 x10^3/uL (1.8-7.7) Lymphocytes # (Auto) 3.2 x10^3/uL (1.0-4.8) Monocytes # (Auto) 1.0 x10^3/uL (0.0-1.1) Eosinophils # (Auto) 0.1 x10^3/uL (0.0-0.7) Basophils # (Auto) 0.1 x10^3/uL (0.0-0.2) Sodium Level 140 mmol/L (136-145) Potassium Level 2.8 mmol/L (3.5-5.1) *L Chloride Level 101 mmol/L (98-107) Carbon Dioxide Level 29 mmol/L (21-32) Anion Gap 10 (6-14) Blood Urea Nitrogen 6 mg/dL (7-20) L Creatinine 1.1 mg/dL (0.6-1.0) H Estimated GFR (Cockcroft-Gault) 59.1 BUN/Creatinine Ratio 5 (6-20) L Glucose Level 134 mg/dL (70-99) H Calcium Level 9.4 mg/dL (8.5-10.1) Magnesium Level 1.8 mg/dL (1.8-2.4) Total Bilirubin 0.5 mg/dL (0.2-1.0) Aspartate Amino Transferase (AST) 32 U/L (15-37) Alanine Aminotransferase (ALT) 12 U/L (14-59) L Alkaline Phosphatase 81 U/L (46-116) Troponin I Quantitative < 0.017 ng/mL (0.000-0.055) Total Protein 6.9 g/dL (6.4-8.2) Albumin 2.7 g/dL (3.4-5.0) L Albumin/Globulin Ratio 0.6 (1.0-1.7) L Lipase 75 U/L (73-393) Laboratory Tests 03/27/20 18:15 Laboratory Tests 03/27/20 18:15 Vital Signs: Vital Signs Date Time Temp Pulse Resp B/P (MAP) Pulse Ox O2 Delivery O2 Flow Rate FiO2 03/27/20 19:30 98.5 64 16 131/67 (88) 99 Room Air 98.5 EKG: EKG: [] Radiology/Procedures: Radiology/Procedures: PATIENT: HI CRYSTAL ACCOUNT: [id number] : 1945 LOCATION: ER AGE: 74 SEX: F EXAM STATUS: REG ER ORD. PHYSICIAN: CLARIBEL RIVAS APRN REASON: RIGHT LOWER QUADRANT PAIN PROCEDURE: CT ABD PELV W/ IV CONTRST ONLY Exam: CT of abdomen and pelvis with contrast INDICATION: Right lower quadrant pain TECHNIQUE: Sequential axial images through the abdomen and pelvis obtained following the administration of 60 mL of Omni 300 IV contrast. Sagittal and coronal reformatted images were reconstructed from the axial data and reviewed. Comparisons: 12/16/2019 FINDINGS: Heart size is normal. No pericardial effusion. Visualized lung bases are clear. No pleural effusion. Liver, spleen, pancreas, and adrenals are unremarkable. Gallbladder is absent. No perinephric inflammation or hydronephrosis. Evaluation for ureteral calculi are not identified. Bladder is partially distended and appears thin-walled. Uterus is absent. No abnormal adnexal mass. Diverticulosis noted at the sigmoid colon. There is mild wall thickening at the sigmoid colon. Remainder of the large and small bowel are unremarkable. Appendix is normal. No free intra-abdominal air or fluid. No obstruction. Abdominal aorta has a normal course and caliber. Abdominal vasculature is patent. No enlarged abdominal lymph nodes are identified. No suspicious osseous lesions or acute fractures. IMPRESSION: Mild wall thickening at the sigmoid colon may relate to colitis. This is in an area of diverticulosis and diverticulitis is possible. Exposure: One or more of the following in the visualized dose reduction techniques were utilized for this examination: 1. Automated exposure control 2. Adjustment of the MA and/or KV according to patient size 3. Use of iterative of reconstructive technique Electronically signed by: Debby Myrick MD (03/27/2020 8:29 PM) [facility] DICTATED and SIGNED BY: DEBBY MYRICK MD DATE: 03/27/[id number] PATIENT: HI CRYSTAL ACCOUNT: [id number] : 1945 LOCATION: ER AGE: 74 SEX: F EXAM STATUS: REG ER ORD. PHYSICIAN: CLARIBEL RIVAS APRN REASON: RT SIDED NECK NUMBNESS, ORAL SOFT PALLATE MASS PROCEDURE: CT SOFT TISSUE NECK W/CONTRAST CT NECK SOFT TISSUE WITH IV CONTRAST DATE: 03/27/2020 7:48 PM INDICATION: RT SIDED NECK NUMBNESS, ORAL SOFT PALATE MASS TECHNIQUE: Axial computed tomography of the neck with intravenous contrast according to the standard neck protocol. 60 cc of Omnipaque 300 was administered intravenously. One or more of the following dose reduction techniques were utilized: Automated exposure control (AEC), Adjustment of mA and/or kV according to patient size, Use of iterative reconstruction technique such as ASiR, CT scan done according to ALARA and image gently/image wisely COMPARISON: None. 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 Scattered subcentimeter lymph nodes are seen in the neck. None are pathologically enlarged or abnormally enhancing. The parotid and submandibular glands are normal. Atrophic thyroid. The muscles of the neck are normal. Vessels of the neck demonstrate normal course, caliber, and enhancement. The visualized aerodigestive tract is normal. The visualized posterior fossa and brain is unremarkable. The visualized orbits and paranasal sinuses are normal. Moderate to severe multilevel degenerative disc desiccation. Multilevel spinal canal stenosis secondary to disc protrusions and marginal osteophytes, worst and severe at C5-6. Multilevel moderate to severe neural foraminal narrowing secondary to uncovertebral and facet arthrosis. The visualized lung apices are clear. IMPRESSION: 1. 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 Soft tissue fullness about the apex is not well characterized by CT. Correlate with direct visualization. 2. No cervical lymphadenopathy. 3. Advanced cervical spondylosis with severe spinal canal stenosis at C5-6. Electronically signed by: Dwight Gómez MD (03/27/2020 8:29 PM) [facility] DICTATED and SIGNED BY: DWIGHT GÓMEZ MD DATE: 03/27/20 [id number] Course & Med Decision Making: Course & Med Decision Making Pertinent Labs and Imaging studies reviewed. (See chart for details) 72-year-old female, vital signs reviewed, presents emergency department complaining of right-sided neck numbness along with nausea vomiting diarrhea for the past 5 days. Physical examination concerning for abdominal infectious process, will rule out appendicitis versus infectious process versus per bowel, patient's neck numbness will be evaluated with CT soft tissue neck. Mass on soft palate will be evaluated by CT soft tissue neck. 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 CT abdomen pelvis with contrast concerning for possible colitis. The patient's labs were equivocal except for patient's serum potassium of 2.7, patient was given 40 mill equivalents of potassium in the ED.. Patient's urine was infected. Patient was given 1 g IV Rocephin in the ED. Also treated in the ED with 1 L normal saline, and 4 mg Zofran for nausea. Upon reexamination of the patient, patient did not have any vomiting spells, did not have any diarrhea spells, patient denies any pain, patient states she feels better. Discussed with patient and patient's daughter CT findings, will treat urinary tract infection and colitis with Augmentin. Patient gave verbal understanding of strict follow-up with primary care this week, return to ER precautions and concerns, discharged home. Stephanie Disclaimer: Stephanie Disclaimer: This electronic medical record was generated, in whole or in part, using a voice recognition dictation system. Departure Departure Impression: Primary Impression: Colitis Additional Impressions: Numbness Urinary tract infection Qualified Codes: N39.0 - Urinary tract infection, site not specified; R31.9 - Hematuria, unspecified Torus palatinus Low serum potassium Referrals: TONY HARE MD (PCP) Patient Instructions: Colitis, Urinary Tract Infection Additional Instructions: Take antibiotic as prescribed, follow-up with your doctor this week, return to the emergency department for worsening symptoms or other concerns. Your serum potassium was low today in the emergency department we gave you a supplement here, please consider eating potassium rich foods and/or taking a potassium supplement, again please follow-up with your primary care physician to have your potassium level reevaluated. EMERGENCY DEPARTMENT GENERAL DISCHARGE INSTRUCTIONS Thank you for coming to [facility] Emergency Department (ED) today and trusting us with you care. We trust that you had a positive experience in our Emergency Department. If you wish to speak to the department management, you may call the Director at [phone]. YOUR FOLLOW UP INSTRUCTIONS ARE FOLLOWS: 1. Do you have a private Doctor? If you do not have a private doctor, please ask for a resource list of physicians or clinics that may be able to assist you with follow up care. 2. The Emergency Physicain has interpreted your x-rays. The X-Ray specialist will also review them. If there is a change in the findings, you will be notified in 48 hours when at all possible. 3. A lab test or culture has been done, your results will be reviewed and you will be notified if you need a change in treatment. ADDITIONAL INSTRUCTIONS AND INFORMATION: 1. Your care today has been supervised by a physician who is specially trained in emergency care. Many problems require more than one evaluation for a complete diagnosis and treatment. We recommend that you schedule your follow up appointment as recommended to ensure complete treatment of you illness or injury. If you are unable to obtain follow up care and continue to have a problem, or if your condition worsens, we recommend that you return to the ED. 2. We are not able to safely determine your condition over the phone nor are we able to give sound medical advice over the phone. For these safety reasons, if you call for medical advice we will ask you to come to the ED for further evaluation. 3. If you have any questions regarding these discharge instructions please call the ED at [phone]. SAFETY INFORMATION: In the interest of safety, wellness, and injury prevention; we encourage you to wear your sealbelt, if you smoke; quite smoking, and we encourage family to use a protective helmet for bicycling and other sporting events that present an increased risk for head injury. IF YOUR SYMPTOMS WORSEN OR NEW SYMPTOMS DEVELOP, OR YOU HAVE CONCERNS ABOUT YOUR CONDITION; OR IF YOUR CONDITION WORSENS WHILE YOU ARE WAITING FOR YOUR FOLLOW UP APPOINTMENT; EITHER CONTACT YOUR PRIMARY CARE DOCTOR, THE PHYSICIAN WHOSE NAME AND NUMBER YOU WERE GIVEN, OR RETURN TO THE ED IMMEDIATELY. Scripts Amoxicillin/Potassium Clav (AUGMENTIN 875-125 TABLET) 1 Each Tablet 1 TAB PO BID for UTI AND COLITIS for 10 Days, #20 TAB 0 Refills Prov: CLARIBEL RIVAS APRN 03/27/20 CLARIBEL RIVAS APRN Mar 27, 2020 20:49
[2020-03-27] MEDS ORDERED: AMOX1TAB61 PO (21:24)
--- NOTE | 2020-03-28 08:58 | EKG ---
[facility] [address] [place] [address] Test Date: 2020-03-27 Test Time: 19:37:15 Pat Name: HI CRYSTAL Department: Room: Gender: F [employer] Super[employer]: : 1945 Requested By: CLARIBEL RIVAS Order Number: [id number] Reading MD: Alexander Gordon Measurements Intervals [place] Rate: 66 P: MS: QRS: -10 QRSD: 90 T: -28 QT: 374 QTc: 394 Interpretive Statements SINUS RHYTHM LEFTWARD AXIS T ABNORMALITY IN INFERIOR LEADS ABNORMAL ECG Electronically Signed On 04-04-2020 10:25:19 NEUROLOGIST by Alexander Gordon
== END 2020-03-27 21:40 | disposition home or self-care (01) ==
LOC: ER 17:08
DX: N39.0 Urinary tract infection, site not specified (principal); R31.9 Hematuria, unspecified; K52.9 Noninfective gastroenteritis and colitis, unspecified; R20.0 Anesthesia of skin; R11.2 Nausea with vomiting, unspecified; M27.0 Developmental disorders of jaws; R10.31 Right lower quadrant pain; E11.9 Type 2 diabetes mellitus without complications; K21.9 Gastro-esophageal reflux disease without esophagitis; E78.00 Pure hypercholesterolemia, unspecified; I10 Essential (primary) hypertension; E03.9 Hypothyroidism, unspecified; Z90.49 Acquired absence of other specified parts of digestive tract; Z90.710 Acquired absence of both cervix and uterus; Z98.890 Other specified postprocedural states; Z88.2 Allergy status to sulfonamides; Z88.8 Allergy status to other drugs, medicaments and biological substances
CPT/HCPCS: 36415; 70491; 74177; 80053; 81001; 83690; 83735; 84484; 85025; 87086; 93005; 96361; 96374; 96375; 99285; J0696; J2405; J7030; Q9967